=== PATIENT | male | born 1935 | race Caucasian/White ===

== ENCOUNTER 2017-03-12 09:46 | Emergency (ER) | payer MEDICARE, OTHER ==
[~2017-03-12] VITALS: Ht 180.3 cm; Wt 80.7 kg
[~2017-03-12 09:46] MED LIST: ALLOPURINOL100 MG PO; CARVEDILOL12.5 MG PO; CIALIS5 MG PO; COZAAR50 MG PO; FLOMAX0.4 MG PO; HYDROCHLOROTHIA25 MG PO; LUTEIN20 M1 PO; MULTI VITAMIN1 EACH PO
[2017-03-12] MEDS ORDERED: ISOSORBIDE DINI30 MG PO (10:00)
[2017-03-12] MEDS ORDERED: ZOCOR40 MG PO (10:00)
--- NOTE | 2017-03-13 20:49 | EKG ---
[facility] [address] [facility] [place] [address] Signed Sinus rhythm with premature atrial complexes Otherwise normal ECG No previous ECGs available Confirmed by ROC JAMIL MD ([id number]) on 03/13/2017 8:49:49 PM Electronically Signed By: ROC JAMIL MD 03/13/17 2049 PATIENT NAME: SKYLER LIMON Electrocardiogram DATE OF : 33 PHYSICIAN: ROC JAMIL MD REPORT #: [id number] REPORT IS CONFIDENTIAL AND NOT TO BE RELEASED WITHOUT AUTHORIZATION
== END 2017-03-12 11:25 | disposition home or self-care (01) ==
LOC: ED 09:46
DX: I10 Essential (primary) hypertension (principal); C14.0 Malignant neoplasm of pharynx, unspecified; Z98.890 Other specified postprocedural states; Z79.899 Other long term (current) drug therapy
CPT/HCPCS: 36415; 71010; 80053; 84484; 85025; 93005; 93010; 99284

== ENCOUNTER 2017-07-27 12:37 | Day surgery (SDC) | payer MEDICARE, OTHER ==
[~2017-07-27] VITALS: Ht 180.3 cm; Wt 84.4 kg
[~2017-07-27 12:37] MED LIST changes: +ADULT LOW DOSE81 MG PO; +ALLOPURINOL300 MG PO; +CLOPIDOGREL75 MG PO; +ISOSORBIDE DINI30 MG PO; +ZOCOR40 MG PO
--- NOTE | 2017-07-27 15:09 | NUR ---
07/27/17 Jonas9 Mitzy Avery 1507 PATIENT ARRIVES TO PACU ASLEEP, AWAKE OFF/ON, ANSWERS QUESTIONS APPROPRIATE THEN BACK TO SLEEP. RESP EVEN AND UNLABORED, NC AT 3 LITERS.
--- NOTE | 2017-08-05 14:11 | OR ---
[facility] [address] [place], [place] [address] Signed DATE OF OPERATION: 07/27/2017 SURGEON: Dexter Coughlin MD PREOPERATIVE DIAGNOSIS: Heme-positive stool without known rectal bleeding. POSTOPERATIVE DIAGNOSIS: Extensive diverticulosis. PROCEDURE: Total colonoscopy to cecum. ANESTHESIA: Intravenous sedation, fentanyl 100 mcg, Versed 7 mg. INDICATION: This 82-year-old white man is well known to me from the past. He is a patient of Dr. Li and also sees a nurse practitioner at the [facility]. 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 His last colonoscopy was in 2011. He was noted to have heme-positive stool on fecal occult blood testing at the [facility], though he has had no gross blood per rectum. He is admitted to undergo colonoscopy to better characterize that issue. He understands the risks of bleeding, infection, and perforation related to colonoscopy and wished to proceed. FINDINGS: The prep was adequate. There were extensive diverticular changes throughout the colon, most dominant in the sigmoid and left colon. There was no sign of polyps or colitis. DESCRIPTION OF PROCEDURE: The patient was brought to the endoscopy suite and placed in the lateral decubitus position, given intravenous sedation to the point of slurred speech and nystagmus. Digital rectal examination was normal. An Olympus video colonoscope was passed in the rectum and manipulated throughout the colon, ultimately intubating the cecum itself. The ileocecal valve and appendiceal orifice were normal. Scope was withdrawn from that point. Examination throughout confirmed numerous diverticula including right transverse, left and sigmoid colon. Most dominantly the diverticula in the left sigmoid colon. There was no evidence of polyp. Electronically Signed By: DEXTER COUGHLIN MD 08/05/17 1411 PATIENT NAME: SKYLER LIMON OPERATIVE REPORT DATE OF : 33 REPORT #: [id number] PHYSICIAN: DEXTER COUGHLIN MD PCP: NO PRIMARY CARE PHYSICIAN REPORT IS CONFIDENTIAL AND NOT TO BE RELEASED WITHOUT AUTHORIZATION [facility] [address] [place], [place] [address] Signed Retroflexed view in the rectum showed no abnormality. The scope was removed and the patient was taken to the recovery room in good condition. CONCLUDING DIAGNOSIS: Extensive diverticulosis. PLAN: Recommend high-fiber diet. He will return to the ongoing care of Dr. Li and those providers at [facility]. MD KOLTON Segal/BRIGHTL /[id number] cc: Angel Li DO [facility] Copies: ANGEL LI DO ~ Electronically Signed By: DEXTER COUGHLIN MD 08/05/17 1411 PATIENT NAME: SKYLER LIMON OPERATIVE REPORT DATE OF : 33 REPORT #: [id number] PHYSICIAN: DEXTER COUGHLIN MD PCP: NO PRIMARY CARE PHYSICIAN REPORT IS CONFIDENTIAL AND NOT TO BE RELEASED WITHOUT AUTHORIZATION
== END 2017-07-27 15:45 | disposition home or self-care (01) ==
LOC: DS 12:37 → OPS 12:37 → DS 14:00 → OPS 15:45
PROVIDERS: Surgery
PROC: 0DJD8ZZ Inspection of Lower Intestinal Tract, Via Natural or Artificial Opening Endoscopic (ICD-10-PCS; principal; 2017-07-27 14:00)
DX: K57.30 Diverticulosis of large intestine without perforation or abscess without bleeding (principal); D64.9 Anemia, unspecified; I10 Essential (primary) hypertension; I25.2 Old myocardial infarction; Z85.818 Personal history of malignant neoplasm of other sites of lip, oral cavity, and pharynx; Z98.890 Other specified postprocedural states
CPT/HCPCS: 99153; G0500; J2250; J3010; J7120

== ENCOUNTER 2017-08-27 18:57 | Emergency (ER) | payer MEDICARE, OTHER ==
[~2017-08-27] VITALS: Ht 180.3 cm; Wt 84.4 kg
[2017-08-27] MEDS ORDERED: SYNTHROID50 MCG PO (19:26)
--- OUTSIDE RECORDS SUMMARY | 2017-08-27 20:19 | XMS | Clinical Summary ---
Demographics + + + | Address | [address] | | | [place] [address] | + + + | Home Phone | | + + + | Preferred Language | Unknown | + + + | Marital Status | | + + + | Hindu Affiliation | NON | + + + | Race | White | + + + | Ethnic Group | Not or | + + + Author + + + | Author | [facility] | + + + | Organization | [facility] | + + + | Address | Unknown | + + + | Phone | Unavailable | + + + Support + + +---------+ + | Name | Relationship | Address | Phone | + + +---------+ + | Allie Johnson | ECON | Unknown | | + + +---------+ + Care Team Providers + +------+ + | Care Knobber Name | Role | Phone | + +------+ + | Cong Freeman MD | PP | | + +------+ + Source Comments HARDY is fully live on both [facility] Ambulatory and [facility] InPatient.[facility], [facility] Allergies No Known Allergies Current Medications + + + +---------+------+------+-------+ | Prescription | Sig. | Disp. | Refills | Star | End | Statu | | | | | | t | Date | s | | | | | | Date | | | + + + +---------+------+------+-------+ | isosorbide | Take 30 mg by mouth | | | | | Activ | | mononitrate CR 30 mg | once daily. | | | | | e | | oral tablet | | | | | | | | extended release 24 | | | | | | | | hr | | | | | | | + + + +---------+------+------+-------+ | nitroglycerin 0.4 | Place 0.4 mg under | | | | | Activ | | mg sublingual | tongue every five | | | | | e | | tablet, sublingual | minutes as needed | | | | | | | | for chest pain. | | | | | | | | Place under tongue | | | | | | | | and allow to | | | | | | | | dissolve. | | | | | | | | Administer every 5 | | | | | | | | minutes, max of 3 | | | | | | | | doses in 15 minutes. | | | | | | + + + +---------+------+------+-------+ | tamsulosin 0.4 mg | Take 0.4 mg by mouth | | | | | Activ | | oral | once daily. | | | | | e | | capsule,extended | | | | | | | | release 24hr | | | | | | | + + + +---------+------+------+-------+ | CYANOCOBALAMIN, | by injection route | | | | | Activ | | VITAMIN B-12, | every thirty days. | | | | | e | | (VITAMIN B-12 INJ) | | | | | | | + + + +---------+------+------+-------+ | allopurinol 300 mg | 0.5 tablets by | | | 04/0 | | Activ | | oral tablet | feeding tube route | | | 3/20 | | e | | | once daily. | | | 15 | | | + + + +---------+------+------+-------+ | aspirin chewable | 1 tablet by feeding | | | 04/0 | | Activ | | 81 mg oral | tube route once | | | 3/20 | | e | | tablet,chewable | daily. | | | 15 | | | + + + +---------+------+------+-------+ | carvedilol 12.5 mg | 1 tablet by feeding | | | 04/0 | | Activ | | oral tablet | tube route two times | | | 3/20 | | e | | | daily. Administer | | | 15 | | | | | with food. | | | | | | + + + +---------+------+------+-------+ | clopidogrel 75 mg | 1 tablet by feeding | | | 04/0 | | Activ | | oral tablet | tube route once | | | 4/20 | | e | | | daily. | | | 15 | | | + + + +---------+------+------+-------+ | | 1 tablet by feeding | | | 04/0 | | Activ | | hydrochlorothiazide | tube route once | | | 3/20 | | e | | 25 mg oral tablet | daily. | | | 15 | | | + + + +---------+------+------+-------+ | losartan 50 mg | 1 tablet by feeding | | | 04/0 | | Activ | | oral tablet | tube route once | | | 3/20 | | e | | | daily. | | | 15 | | | + + + +---------+------+------+-------+ | oxyCODONE, | Take 5 to 15 mL by | 300 mL | 0 | 04/0 | | Activ | | immediate release, 5 | feeding tube route | | | 3/20 | | e | | mg/5 mL oral | every three hours as | | | 15 | | | | solution | needed for moderate | | | | | | | | pain. | | | | | | + + + +---------+------+------+-------+ | polyethylene | 17 g by feeding tube | 119 g | | 04/0 | | Activ | | glycol 17 gram/dose | route once daily. | | | 3/20 | | e | | oral powder | | | | 15 | | | + + + +---------+------+------+-------+ | simvastatin 10 mg | 1 tablet by feeding | | | 04/0 | | Activ | | oral tablet | tube route once | | | 3/20 | | e | | | daily in the | | | 15 | | | | | evening. | | | | | | + + + +---------+------+------+-------+ | ondansetron 4 mg | Take 1 tablet by | 20 | 0 | 04/0 | | Activ | | oral tablet | feeding tube route | tablet | | 3/20 | | e | | | every twelve hours | | | 15 | | | | | as needed. | | | | | | + + + +---------+------+------+-------+ | acetaminophen 650 | 10.15-20.3 mL by | 400 mL | 0 | 04/0 | | Activ | | mg/20.3 mL oral | feeding tube route | | | 3/20 | | e | | suspension | every four hours as | | | 15 | | | | | needed. | | | | | | + + + +---------+------+------+-------+ | senna 8.8 mg/5 mL | 5 mL by feeding tube | 237 mL | 0 | 04/0 | | Activ | | oral syrup | route two times | | | 3/20 | | e | | | daily. | | | 15 | | | + + + +---------+------+------+-------+ | docusate sodium 50 | 5 mL by feeding tube | 120 mL | 0 | 04/0 | | Activ | | mg/5 mL oral liquid | route two times | | | 3/20 | | e | | | daily. | | | 15 | | | + + + +---------+------+------+-------+ | chlorhexidine 0.12 | Take 15 mL by mouth | 480 mL | 3 | 04/0 | | Activ | | % mucous membrane | every six hours. | | | 4/20 | | e | | mouthwash | Swish undiluted oral | | | 15 | | | | | rinse around in | | | | | | | | mouth for 30 | | | | | | | | seconds, then spit. | | | | | | | | Do not swallow. | | | | | | + + + +---------+------+------+-------+ Active Problems + + + | Problem | Noted Date | + + + | Pulmonary edema | 08/28/2014 | + + + + + | Last Assessment & Plan: -Suspected contributor to opacities | | on 08/28/2014 CXR-Furosemide 40 mg IV once today, goal I/O | | negative 500-1000 ml | + + + + + | CAD (coronary artery disease), [place] coronary artery | 08/27/2014 | + + + + + | Overview: S/P [place] 2013 Last Assessment & Plan: -Per ENT, | | hold aspirin and clopidogrel-Continue carvedilol 6.25 mg BID | |-Continue carvedilol 6.25 mg BID | + + + + + | Airway edema | 08/27/2014 | + + + + + | Last Assessment & Plan: After TORS procedures | | -Kept intubated and sedated overnight | | -decadron 8mg q8hrs per ENT ON | | -Cuff leak confirmed, passed SBT, extubated on 08/28/2014 | + + + + + | Post-operative pain | 08/27/2014 | + + + + + | Last Assessment & Plan: -Acetaminophen | | -PRN hydromorphone and oxycodone | + + + + + | Respiratory insufficiency | 08/27/2014 | + + + + + | Last Assessment & Plan: -Extubated on 08/28/2014 | | -Supplemental oxygen to maintain SpO2 > 92% | + + + + + | Difficult intubation | 08/27/2014 | + + + | HTN (hypertension) | 08/27/2014 | + + + + + | Last Assessment & Plan: -continue home carvedilol 6.25 mg BID | | -hold home HCTZ, losartan, and Isosorbide | + + + + + | GERD (gastroesophageal reflux disease) | 08/27/2014 | + + + + + | Overview: S/P [place] | + + + + + | CKD (chronic kidney disease) | 08/27/2014 | + + + + + | Last Assessment & Plan: 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 | + + + + + | Squamous cell carcinoma of oropharynx (HCC) | 08/20/2014 | + + + + + | Overview: S/P TORS partial pharnygecomy, TORS with partial | | glossectomy, and neck dissection | + + Family History + + +------+ + | Medical History | Relation | Name | Comments | + + +------+ + | Cancer | Daughter | | Breast | + + +------+ + | Cancer | Daughter | | Breast | + + +------+ + + +------+--------+ + | Relation | Name | Status | Comments | + +------+--------+ + | Daughter | | | | + +------+--------+ + | Daughter | | | | + +------+--------+ + Social History + +-------+ +--------+------+ | Tobacco Use | Types | Packs/Day | Years | Date | | | | | Used | | + +-------+ +--------+------+ | Never Smoker | | | | | + +-------+ +--------+------+ + + +---------+ + | Alcohol Use | Drinks/We | oz/Week | Comments | | | ek | | | + + +---------+ + | Yes | 2 | 1.0 | | | | Standard | | | | | drinks or | | | | | | | | | | equivalen | | | | | t | | | + + +---------+ + + + + | Sex Assigned at | Date Recorded | | | | + + + | Not on file | | + + + Last Filed Vital Signs + + + + | Vital Sign | Reading | Time Taken | + + + + | Blood Pressure | 162/56 | 08/31/2014 12:22 PM PDT | + + + + | Pulse | 63 | 08/31/2014 12:22 PM PDT | + + + + | Temperature | 36.7 C (98.1 F) | 08/31/2014 2:09 PM PDT | + + + + | Respiratory Rate | 24 | 08/31/2014 12:22 PM PDT | + + + + | Oxygen Saturation | 95% | 08/31/2014 12:22 PM PDT | + + + + | Inhaled Oxygen | - | - | | Concentration | | | + + + + | Weight | 95.7 kg (210 lb 15.7 | 08/28/2014 9:10 PM PDT | | | oz) | | + + + + | Height | 180.3 cm (5' 10.98") | 08/27/2014 2:25 PM PDT | + + + + | Body Mass Index | 29.44 | 08/28/2014 9:10 PM PDT | + + + + Plan of Treatment + + + + + | Health Maintenance | Due Date | Last Done | Comments | + + + + + | INFLUENZA VACCINE | | | | | (FLU SHOT) | 7 | | | + + + + + Results Not on filefrom Last 3 Months
--- OUTSIDE RECORDS SUMMARY | 2017-08-27 20:19 | XMS | Clinical Summary ---
Demographics + + + | Address | [address] | | | [place] [address] | + + + | Home Phone | | + + + | Preferred Language | Unknown | + + + | Marital Status | | + + + | Gnosticism Affiliation | NON | + + + [...] Team Providers + +------+ + | Care Forensic Sergeant Name | Role | Phone | + +------+ + | Cong Freeman MD | PP | | + +------+ + Source Comments HARDY is fully live on both [facility] Ambulatory and [facility] InPatient.[facility] & [facility] Allergies No Known Allergies Current Medications + [...] + + | CAD (coronary artery disease), [place] coronary artery | 08/27/2014 | + + + + + | Overview: S/P [place] 2013 Last Assessment & Plan: -Per ENT, [...] + | Last Assessment & Plan: Baseline Cottage Parent ~1.5 | + + + + + [...]
[2017-08-27] MEDS ORDERED: CEPHALEXIN500 MG PO (23:05)
== END 2017-08-27 23:36 | disposition home or self-care (01) ==
LOC: ED 18:57
DX: N39.0 Urinary tract infection, site not specified (principal); I10 Essential (primary) hypertension; E78.00 Pure hypercholesterolemia, unspecified; E03.9 Hypothyroidism, unspecified; Z79.899 Other long term (current) drug therapy; Z79.82 Long term (current) use of aspirin
CPT/HCPCS: 80053; 81001; 85025; 87077; 87088; 87186; 99283

== ENCOUNTER 2017-11-06 19:09 | Emergency (ER) | payer OTHER, MEDICARE ==
[~2017-11-06] VITALS: Ht 180.3 cm; Wt 84.4 kg
[~2017-11-06 19:09] MED LIST changes: +CEPHALEXIN500 MG PO; +SYNTHROID50 MCG PO
[2017-11-06] MEDS ORDERED: B-121000 MC2 PO (19:30)
[2017-11-06] MEDS ORDERED: CEPHALEXIN500 MG PO (21:57)
== END 2017-11-06 22:09 | disposition home or self-care (01) ==
LOC: ED 19:09
DX: N39.0 Urinary tract infection, site not specified (principal); I10 Essential (primary) hypertension; E78.00 Pure hypercholesterolemia, unspecified; E03.9 Hypothyroidism, unspecified; Z79.899 Other long term (current) drug therapy; Z79.82 Long term (current) use of aspirin
CPT/HCPCS: 74176; 80053; 81001; 85025; 87077; 87088; 87186; 96374; 99284; J0696

== ENCOUNTER 2018-06-10 10:21 | Emergency (ER) | payer MEDICARE, OTHER ==
[~2018-06-10] VITALS: Ht 180.3 cm; Wt 84.4 kg
[~2018-06-10 10:21] MED LIST changes: +B-121000 MC2 PO
--- NOTE | 2018-06-11 06:58 | EKG ---
[facility] [address] [place] [address] Signed Normal sinus rhythm Minimal voltage criteria for LVH, may be normal variant Borderline ECG When compared with ECG of 12-MAR-2017 10:11, premature atrial complexes are no longer present T wave inversion now evident in Inferior leads Confirmed by WILIAM JIMENEZ MD ([id number]) on 06/11/2018 6:58:40 AM Electronically Signed By: WILIAM JIMENEZ MD 06/11/18 0658 PATIENT NAME: SKYLER LIMON Electrocardiogram DATE OF : 33 PHYSICIAN: WILIAM JIMENEZ MD REPORT #: [id number] REPORT IS CONFIDENTIAL AND NOT TO BE RELEASED WITHOUT AUTHORIZATION
== END 2018-06-10 11:58 | disposition home or self-care (01) ==
LOC: ED 10:21
DX: R07.89 Other chest pain (principal); R53.1 Weakness; I10 Essential (primary) hypertension; E78.00 Pure hypercholesterolemia, unspecified; E03.9 Hypothyroidism, unspecified; C14.0 Malignant neoplasm of pharynx, unspecified; Z79.82 Long term (current) use of aspirin; Z79.899 Other long term (current) drug therapy
CPT/HCPCS: 71045; 80053; 84484; 85025; 87502; 93005; 93010; 99285-25

== ENCOUNTER 2019-06-05 06:34 | Emergency (ER) | payer MEDICARE, OTHER ==
[~2019-06-05] VITALS: Ht 180.3 cm; Wt 80.7 kg
--- OUTSIDE RECORDS SUMMARY | ~2019-06-05 | XMS | Encounter Summary ---
Demographics + + + | Address | [address] | | | [place] [address] | + + + | Home Phone | | + + + | Preferred Language | Unknown | + + + | Marital Status | | + + + | Synagogue Affiliation | NON | + + + | Race | White | + + + | Ethnic Group | Not or | + + + Author + + + | Author | [facility] | + + + | Organization | [facility] | + + + | Address | Unknown | + + + | Phone | Unavailable | + + + Support + + +---------+ + | Name | Relationship | Address | Phone | + + +---------+ + | Kofia Alex | ECON | Unknown | | + + +---------+ + Care Team Providers + +------+ + | Care Charge Aide Name | Role | Phone | + +------+ + | Cong Freeman MD | PCP | | + +------+ + Encounter Details +--------+ + + + + | Date | Type | Department | Care Team | Description | +--------+ + + + + | 08/31/ | Pharmacy | Outpatient [facility] | | | | 2014 | Visit [facility] | | | | | [address] | | | | | | [address] [place], [place] | | | | | | [address] | | | | | | [phone] | | | +--------+ + + + + Social History + +-------+ +--------+------+ | Tobacco Use | Types | Packs/Day | Years | Date | | | | | Used | | + +-------+ +--------+------+ | Never Smoker | | | | | + +-------+ +--------+------+ + + +---------+ + | Alcohol Use | Drinks/Week | oz/Week | Comments | + + +---------+ + | Yes | 2 Standard drinks | 1.7 | | | | or equivalent | | | + + +---------+ + + + + | Sex Assigned at | Date Recorded | | | | + + + | Not on file | | + + + + + + + | Job Start Date | Occupation | Industry | + + + + | Not on file | Not on file | Not on file | + + + + + + + + | Travel History | Travel Start | Travel End | + + + + + + | No recent travel history available. | + + documented as of this encounter Plan of Treatment Not on filedocumented as of this encounter Visit Diagnoses Not on filedocumented in this encounter"
--- OUTSIDE RECORDS SUMMARY | ~2019-06-05 | XMS | Encounter Summary ---
Demographics + + + | Address | [address] | | | [place] [address] | + + + | Home Phone | | + + + | Preferred Language | Unknown | + + + | Marital Status | | + + + | Latter Day Affiliation | Unknown | + + + | Race | Unknown | + + + | Ethnic Group | Unknown | + + + Author + + + | Author | [facility] | | | and [place] | + + + | Organization | [facility] | | | and [place] | + + + | Address | Unknown | + + + | Phone | Unavailable | + + + Support + + + + + | Name | Relationship | Address | Phone | + + + + + | Allie Johnson | ECON | [address] | | | | | [place] | | | | | [address] | | + + + + + Care Team Providers + +------+ + | Care Director Of District Office Name | Role | Phone | + +------+ + | Ruy Chaparro MD | PCP | | + +------+ + Reason for Visit Service/Procedure (Routine) +--------+--------+ + + + + | Status | Reason | Specialty | Diagnoses / | Referred By | Referred To | | | | | Procedures | Contact | Contact | +--------+--------+ + + + + | Closed | | Infusion | Diagnoses | Lord, | [facility] | | | | Therapy | Malignant | Art Holloway DO | Infusion [address] | | | | | neoplasm of | [address] [place] | | | | | oropharynx, | [address] | [place], | | | | | unspecified | [place], | [place] [address] | | | | | site | [place] [address] | Phone: | | | | | Procedures | Phone: | [phone] | | | | | DE IV | [phone] | Fax: | | | | | INFUSION, | Fax: | [phone] | | | | | HYDRATION, | [phone] | | | | | | 31-60 MIN | | | | | | | DE IV | | | | | | | INFUSION, | | | | | | | HYDRATION, | | | | | | | 31-60 MIN | | | +--------+--------+ + + + + Encounter Details +--------+ + + + + | Date | Type | Department | Care Team | Description | +--------+ + + + + | 11/28/ | Hospital | [facility] | Art Red DO | Dysphagia; Carcinoma | | 2015 | Encounter | MED CTR CHEMO | [address] | of oropharynx (HCC) | | | | INFUSION [address] | [place], [place] | | | | | [place], | [address] | | | | | [place] [address] | | | | | | [phone] | | | +--------+ + + + + Social History + +-------+ +--------+------+ | Tobacco Use | Types | Packs/Day | Years | Date | | | | | Used | | + +-------+ +--------+------+ | Never Assessed | | | | | + +-------+ +--------+------+ + + +---------+ + | Alcohol Use | Drinks/Week | oz/Week | Comments | + + +---------+ + | Yes | | | Occasionally | + + +---------+ + + + [...] + + documented as of this encounter Last Filed Vital Signs + + + + + | Vital Sign | Reading | Time Taken | Comments | + + + + + | Blood Pressure | 116/58 | 11/28/2014 10:34 AM | | | | | PDT | | + + + + + | Pulse | 59 | 11/28/2014 10:34 AM | | | | | PDT | | + + + + + | Temperature | 36.3 C (97.3 F) | 11/28/2014 10:34 AM | | | | | PDT | | + + + + + | Respiratory Rate | 18 | 11/28/2014 10:34 AM | | | | | PDT | | + + + + + | Oxygen Saturation | 97% | 11/28/2014 10:34 AM | | | | | PDT | | + + + + + | Inhaled Oxygen | - | - | | | Concentration | | | | + + + + + | Weight | - | - | | + + + + + | Height | - | - | | + + + + + | Body Mass Index | - | - | | + + + + + documented in this encounter Medications at Time of Discharge + + + +---------+ + + | Medication | Sig | Dispensed | Refills | Start | End Date | | | | | | Date | | + + + +---------+ + + | aspirin 81 mg | Take 81 mg by mouth | | 0 | | | | chewable tablet | Daily. | | | | | + + + +---------+ + + | isosorbide | Take 60 mg by mouth | | 0 | | | | mononitrate 60 mg ER | Daily. | | | | | | tablet | | | | | | + + + +---------+ + + | losartan (COZAAR) | Take 50 mg by mouth | | 0 | | | | 50 mg tablet | Daily. | | | | | + + + +---------+ + + | simvastatin | Take 40 mg by mouth | | 0 | | | | (ZOCOR) 40 mg tablet | nightly. | | | | | + + + +---------+ + + | acetaminophen | Take 500 mg by mouth | | 0 | | | | (TYLENOL) 500 mg | every 6 hours as | | | | 7 | | tablet | needed for Pain. | | | | | | | Take 1,000mg Po prn | | | | | + + + +---------+ + + | allopurinol | Take 300 mg by mouth | | 0 | | | | (ZYLOPRIM) 300 mg | Daily. | | | | 8 | | tablet | | | | | | + + + +---------+ + + | carvedilol (COREG) | Take 12.5 mg by | | 0 | | | | 12.5 mg tablet | mouth 2 times daily | | | | 9 | | | (with breakfast & | | | | | | | dinner). | | | | | + + + +---------+ + + | clopidogrel | Take 75 mg by mouth | | 0 | | | | (PLAVIX) 75 mg | Daily. | | | | 6 | | tablet | | | | | | + + + +---------+ + + | cyanocobalamin | Inject 1,000 mcg | | 0 | | | | (VITAMIN B-12) 1,000 | into the muscle | | | | 6 | | mcg/mL injection | once. Every 30 days | | | | | + + + +---------+ + + | fentaNYL | Place 1 patch onto | 5 patch | 0 | 11/27/19 | | | (DURAGESIC) 50 | the skin every 72 | | | 15 | 5 | | mcg/hr | hours for 30 days. | | | | | + + + +---------+ + + | fluconazole | Take 2 tabs the | 11 | 0 | 11/13/19 | | | (DIFLUCAN) 100 mg | first day then 1 tab | tablet | | 15 | 6 | | tabletIndications: | daily for a total | | | | | | Thrush | of 10 days | | | | | + + + +---------+ + + | | Take 25 mg by mouth | | 0 | | | | hydrochlorothiazide | Daily. | | | | 9 | | 25 mg tablet | | | | | | + + + +---------+ + + | magic mouthwash | Take 5 mLs by mouth | 600 mL | 3 | 10/27/19 | | | | every 4 hours as | | | 15 | 6 | | | needed for Pain (Can | | | | | | | swish and swallow, | | | | | | | or swish and spit). | | | | | | | (RECIPE = 1:1:1 | | | | | | | mixture of Maalox, | | | | | | | diphenhydrAMINE, | | | | | | | viscous lidocaine) | | | | | + + + +---------+ + + | morphine 10 mg/5 | Take 5-15 mL every | 500 mL | 0 | 11/23/19 | | | mL | 4-6 hr as needed for | | | 15 | 6 | | solutionIndications: | pain. | | | | | | Mucositis due to | | | | | | | radiation therapy | | | | | | + + + +---------+ + + | nitroglycerin | Place 0.4 mg under | | 0 | | | | (NITROSTAT) 0.4 mg | the tongue every 5 | | | | 7 | | SL tablet | minutes as needed | | | | | | | for Chest pain. | | | | | + + + +---------+ + + | ondansetron | Take 1 tablet by | 24 | 0 | 11/23/19 | | | (ZOFRAN ODT) 4 mg | mouth every 8 hours | tablet | | 15 | 5 | | disintegrating | as needed for Nausea | | | | | | tablet | for up to 7 days. | | | | | + + + +---------+ + + | polyethylene | Mix 17grams into 4-8 | 255 g | 0 | 11/27/19 | | | glycol (MIRALAX) | oz of juice or | | | 15 | 6 | | powder | water and take by | | | | | | | mouth once daily as | | | | | | | needed for | | | | | | | constipation | | | | | + + + +---------+ + + documented as of this encounter Progress Courtney Tucker RN - 11/28/2014 12:10 PM PDTPatient discharged in satisfactory conditi on. Discharged ambulatory. With family. To home. Verified that patient has antinausea medications at home. Future appointments and After Visit Summary (AVS) provided. Kathy Verdin RN - 11/28/2014 10:35 AM PDTHe re for rn check, hydration. Doing well today. Denies dizziness if he gets up slowly. Denies pain while resting, reports if he attempts to swallow it hurts. Using pain med routinely. No new concerns domargarita brower in this encounter Plan of Treatment +--------+ + + + + | Date | Type | Specialty | Care Team | Description | +--------+ + + + + | 12/10/ | Appointment | Radiation Oncology | Art Red DO | | 2019 | | | [address] | | | | | | [place] | | | | | | [address] | | | | | | | | +--------+ + + + + | 03/13/ | Office | Cardiology | Sophie Delacruz, | | | 2019 | Visit | Rosemarie DIAZ | | | | | | [place] | | | | | | [phone] | | | | | | | | +--------+ + + + + documented as of this encounter Visit Diagnoses + + | Diagnosis | + + | Dysphagia Dysphagia, unspecified | + + | Carcinoma of oropharynx (HCC) Malignant neoplasm of oropharynx, unspecified site | + + documented in this encounter Administered Medications + +--------+ +-------+------+------+ | Medication Order | MAR | Action | Dose | Rate | Site | | | Action | Date | | | | + +--------+ +-------+------+------+ | heparin 100 units/mL flush | Given | 11/29/19 | 500 | | | | injection 500 Units 500 Units (5 | | 15 12:05 | Units | | | | mL), Intracatheter, PRN, Line | | PM PDT | | | | | Care, Starting Wed11/28/14 at | | | | | | | 1022, , | | | | | | + +--------+ +-------+------+------+ +---+---+ | | | +---+---+ + +---------+ +---+-------+---+ | sodium chloride 0.9% (NS) | New Bag | 11/29/19 | | 650 | | | infusion at 650 mL/hr, | | 15 10:31 | | mL/hr | | | Intravenous, ONCE, Wed11/28/14 at | | AM PDT | | | | | 1045, For 1 dose, Give 1 liter NS | | | | | | | daily- For Dr. Red- Patient | | | | | | | has radiation daily at 0945. He | | | | | | | only has 8 treatments left- last | | | | | | | day of IV hydration will be on | | | | | | | November 29., | | | | | | + +---------+ +---+-------+---+ +---+---+ | | | +---+---+ documented in this encounter"
--- OUTSIDE RECORDS SUMMARY | ~2019-06-05 | XMS | Encounter Summary ---
Demographics + + + | Address | [address] | | | [place] [address] | + + + | Home Phone | | + + + | Preferred Language | Unknown | + + + | Marital Status | | + + + | Nondenominational Affiliation | Unknown | + + + | Race | Unknown | + + + | Ethnic Group | Unknown | + + + Author + + + | Author | [facility] | | | and [place] | + + + | Organization | [facility] | | | and [...] [place] | | | | | [address] | | + + + + + Care Team Providers + +------+ + | Care Spreader Operator Name | Role | Phone | + +------+ + | Ruy Chaparro MD | PCP | | + +------+ + Reason for Visit +--------+ + | Reason | Comments | +--------+ + | Other | | +--------+ + Encounter Details +--------+ + + + + | Date | Type | Department | Care Team | Description | +--------+ + + + + | 11/09/ | Telephone | [facility] | Art Red DO | Other | | 2014 | | MED CTR RADIATION | [address] | | | | | ONCOLOGY [address] | [place], [place] | | | | | [place], | [address] | | | | | [place] [address] | | | | | | [phone] | | | +--------+ + + + [...] as of this encounter Plan of Treatment +--------+ + + + + | Date | Type | Specialty | Care Team | Description | +--------+ + + + + | 12/10/ | Appointment | Radiation Oncology | Art Red DO | | 2019 | | | [address] | | | | | | [place] | | | | | | [address] | | | | | | | | +--------+ + + + + | 03/13/ | Office | Cardiology | Sophie Delacruz, | | | 2019 | Visit | | MD Chivo DIAZ | | | | | | [place] | | | | | | [address] | | | | | | | | +--------+ + + + + documented as of this encounter Visit Diagnoses Not on filedocumented in this encounter"
--- OUTSIDE RECORDS SUMMARY | ~2019-06-05 | XMS | Encounter Summary ---
Demographics + + + | Address | [address] | | | [place] [address] | + + + | Home Phone | | + + + | Preferred Language | Unknown | + + + | Marital Status | | + + + | Shinto Affiliation | Unknown | + + + | Race | Unknown | + + + | Ethnic Group | Unknown | + + + Author + + + | Author | [facility] | | | and [place] | + + + | Organization | [facility] | | | and [place] | + [...] [place] | | | | | [address] | | + + + + + Care Team Providers + +------+ + | Care Brooch Maker Novelty Name | Role | Phone | + +------+ + | Ruy Chaparro MD | PCP | | + +------+ + Reason for Visit +--------+ + | Reason | Comments | +--------+ + | Other | | +--------+ + Encounter Details +--------+ + + + + | Date | Type | Department | Care Team | Description | +--------+ + + + + | 10/12/ | Telephone | [facility] | [facility] | Other | | 2015 | | MED CTR MEDICAL | MD Jason [address] | | | | | ONCOLOGY CLINIC [address] | [address] [place] | | | | | [address] [place] | [place] [address] | | | | | [place] [address] | [phone] | | | | | [phone] | | | +--------+ + + + [...] Oncology | Art Red DO | | | 2019 | | | [address] | | | | | | [place] | | | | | | [address] | | | | | | | | +--------+ + + + + | 03/13/ | Office | Cardiology | Sophie Delacruz, | | | 2019 | Visit | | MD [address]ivo [address] | | | | | | [place] | | | | | | [address] | | | | | | | | +--------+ + + + + documented as of this encounter Visit Diagnoses Not on filedocumented in this encounter"
--- OUTSIDE RECORDS SUMMARY | ~2019-06-05 | XMS | Encounter Summary ---
Demographics + + + | Address | [address] | | | [place] [address] | + + + | Home Phone | | + + + | Preferred Language | Unknown | + + + | Marital Status | | + + + | Religion Affiliation | Unknown | + + + | Race | Unknown | + + + | Ethnic Group | Unknown | + + + Author + + + | Author | [facility] | | | and [place] | + + + | Organization | [facility] | | [...] [place] | | | | | [address] | | + + + + + Care Team Providers + +------+ + | Care Master Control Supervisor Name | Role | Phone | + +------+ + | Ruy Chaparro MD | PCP | | + +------+ + Encounter Details +--------+ + + + + | Date | Type | Department | Care Team | Description | +--------+ + + + + | 11/26/ | Orders Only | [facility] | Art Red DO | | | 2014 | | MED CTR RADIATION | [address] | | | | | ONCOLOGY [address] | [place], [place] | | | | | [place], | [address] | | | | | [place] [address] | | | | | | [phone] | | | +--------+ + + + [...] 2019 | | | [address] | | | | | | [place] | | | | | | [phone] | | | | | | | | +--------+ + + + + | 03/13/ | Office | Cardiology | Sophie Delacruz, | | | 2019 | Visit | | MD [address]ivo DIAZ | | | | | | [place] | | | | | | [phone] | | | | | | | | +--------+ + + + + documented as of this encounter Visit Diagnoses Not on filedocumented in this encounter"
--- OUTSIDE RECORDS SUMMARY | ~2019-06-05 | XMS | Encounter Summary ---
Demographics + + + | Address | [address] | | | [place] [address] | + + + | Home Phone | | + + + | Preferred Language | Unknown | + + + | Marital Status | | + + + | Restorationism Affiliation | NON | + + + | Race | White | + + + | Ethnic Group | Not or | + + + Author + + + | Author | [facility] | + + + | Organization | [facility] | + + + | Address | Unknown | + + + | Phone | Unavailable | + + + Support + + +---------+ + | Name | Relationship | Address | Phone | + + +---------+ + | Kofia Alex | ECON | Unknown | | + + +---------+ + Care Team Providers + +------+ + | Care Trim Master Operator Name | Role | Phone | + +------+ + | Cong Freeman MD | PCP | | + +------+ + Encounter Details +--------+ + + + + | Date | Type | Department | Care Team | Description | +--------+ + + + + | 08/25/ | Documentati | Otolaryngology | Danny Abdullahi | | | 2017 | on | Head and Neck | MD Jessy [address] [facility] [address] | | | | | Surgery Services at | [facility] | | | | | [address] | [place], [place] | | | | | [address] | [address] | | | | | Mailcode: PV01 | [phone] | | | | | [facility] | | | | | | [place], [place] | | | | | | [address] | | | | | | [phone] | | | +--------+ + + + [...]
--- OUTSIDE RECORDS SUMMARY | ~2019-06-05 | XMS | Encounter Summary ---
Demographics + + + | Address | [address] | | | [place] [address] | + + + | Home Phone | | + + + | Preferred Language | Unknown | + + + | Marital Status | | + + + | Hinduism Affiliation | Unknown | + + + | Race | Unknown | + + + | Ethnic Group | Unknown | + + + Author + + + | Author | [facility] | | | and [place] | + + + | Organization | [facility] | | | and [...] [place] | | | | | [address] | | + + + + + Care Team Providers + +------+ + | Care Drum Sander Name | Role | Phone | + [...] neoplasm of | [address] [place] | | | | | oropharynx, | [address] | [place], | | | | | unspecified | [place], | [place] [address] | | | | | site | [place] [address] | Phone: | | | | | Procedures | Phone: | [phone] | | | | | NM IV | [phone] | Fax: | | | | | INFUSION, | Fax: | [phone] | | | | | HYDRATION, | [phone] | | | | | | 31-60 MIN | | | | | | | NM IV | | | | | | | INFUSION, | | | | | | | HYDRATION, | | | | | | | 31-60 MIN | | | +--------+--------+ + + + + Encounter Details +--------+ + + + + | Date | Type | Department | Care Team | Description | +--------+ + + + + | 11/22/ | Hospital | [facility] | Art Red DO | Dysphagia; Carcinoma | | 2015 | Encounter | MED CTR CHEMO | [address] | of oropharynx (HCC) | | | | INFUSION [address] | [place], [place] | | | | | [place], | [address] | | | | | [place] [address] | | | | | | [phone] | | | +--------+ + + + [...] + + + | Blood Pressure | 111/54 | 11/22/2014 10:35 AM | | | | | PDT | | + + + + + | Pulse | 57 | 11/22/2014 10:35 AM | | | | | PDT | | + + + + + | Temperature | 35.9 C (96.6 F) | 11/22/2014 10:35 AM | | | | | PDT | | + + + + + | Respiratory Rate | - | - | | + + + + + | Oxygen Saturation | - | - | | + [...] fentaNYL | Place 1 patch onto | 10 | 0 | 11/07/19 | | | (DURAGESIC) 25 | the skin every 72 | patch | | 15 | 5 | | [...] + documented as of this encounter Progress Notes Kathy Cason RN - 11/22/2014 12:15 PM PDTDc/d home amb in good condition with compan ion Elba Salinas RN - 11/22/2014 10:33 AM PDTEnergy level: no energy, sleeping alot Fever or chills: denies Appetite: No appetite. Eating soft foods boost Nausea and/or vomiting: denies Bowels: not eating doesn't feel like there's anything there, does not feel constipated Numbness and tingling: denies Bleeding or bruising: denies Karnofsky: 69 Nurses notes: No new concerns , Just saw Dr Red. Here for fluids. documented in this encounter Plan of Treatment +--------+ [...] [place] | | | | | | [address] | | | | | | | | +--------+ + + + + | 03/13/ | Office | Cardiology | Sophie Delacruz, | | | 2019 | Visit | | MD Chivo DIAZ | | | | | | [place] | | | | | | [phone] | | | | | | | [...] heparin 100 units/mL flush | Given | 11/22/ | 500 | | | | injection 500 Units 500 Units (5 | | 15 12:15 | Units | | | | mL), Intracatheter, PRN, Line | | PM PDT | | | | | Care, Starting Wed11/22/14 at | | | | | | | 0941, , | | | | | | + +--------+ +-------+------+------+ +---+---+ | | | +---+---+ + +---------+ +--------+-------+---+ | sodium chloride 0.9% (NS) | New Bag | 11/23/19 | 1,000 | 650 | | | infusion at 650 mL/hr, | | 15 10:39 | mLs | mL/hr | | | Intravenous, ONCE, Wed11/22/14 at | | AM PDT | | | | | 1000, For 1 dose, Give 1 liter | | | | | | | NS daily- For Dr. Red- Patient | | | | | | | has radiation daily at 0945. He | | | | | | | only has 8 treatments left- last | | | | | | | day of IV hydration will be on | | | | | | | November 29., | | | | | | + +---------+ +--------+-------+---+ +---+---+ | | | +---+---+ documented in this encounter"
--- OUTSIDE RECORDS SUMMARY | ~2019-06-05 | XMS | Encounter Summary ---
Demographics + + + | Address | [address] | | | [place] [address] | + + + | Home Phone | | + + + | Preferred Language | Unknown | + + + | Marital Status | | + + + | Shinto Affiliation | Unknown | + + + | Race | Unknown | + + + | Ethnic Group | Unknown | + + + Author + + + | Author | [facility] | | | and [place] | + + + | Organization | [facility] | | | [...] [place] | | | | | [address] | | + + + + + Care Team Providers + +------+ + | Care Food Production Associate Name | Role | Phone | + [...] + | 10/12/ | Telephone | [facility] | María Begum MD | Other | | 2015 | | MED CTR MEDICAL | [address] | | | | | ONCOLOGY CLINIC [address] | [place], [place] | | | | | [place] | [address] | | | | | [place] [address] | [phone] | | | | | [phone] | | | +--------+ + + + [...] [place] | | | | | | [address] | | | | | | | | +--------+ + + + + | 03/13/ | Office | Cardiology | Sophie Delacruz, | | | 2020 | Visit | | MD Chivo DIAZ | | | | | | [place] | | | | | | [address] | | | | | | | | +--------+ + + + + documented as of this encounter Visit Diagnoses Not on filedocumented in this encounter"
--- OUTSIDE RECORDS SUMMARY | ~2019-06-05 | XMS | Encounter Summary ---
Demographics + + + | Address | [address] | | | [place] [address] | + + + | Home Phone | | + + + | Preferred Language | Unknown | + + + | Marital Status | | + + + | Anabaptism Affiliation | Unknown | + + + | Race | Unknown | + + + | Ethnic Group | Unknown | + + + Author + + + | Author | [facility] | | | and [place] | + + + | Organization | [facility] | | | and [...] [place] | | | | | [address] | | + + + + + Care Team Providers + +------+ + | Care Letter Carrier Name | Role | Phone | + +------+ + | Ruy Chaparro MD | PCP | | + +------+ + Encounter Details +--------+ + + + + | Date | Type | Department | Care Team | Description | +--------+ + + + + | 05/29/ | Documentati | [facility] | [place], | | | 2016 | on | MED CTR SPEECH | Michelle Weeks, Speech | | | | | THERAPY [address] | Pathologist [address] | | | | | [place], | [address] [place] | | | | | [place] [address] | [place] [address] | | | | | [phone] | [phone] | | | | | | | [...] [place] | | | | | | [address] | | | | | | | | +--------+ + + + + | 03/13/ | Office | Cardiology | Sophie Delacruz, | | | 2019 | Visit | | MD Chivo DIAZ | | | | | | [place] | | | | | | [address] | | | | | | | | +--------+ + + + + documented as of this encounter Visit Diagnoses Not on filedocumented in this encounter"
--- OUTSIDE RECORDS SUMMARY | ~2019-06-05 | XMS | Encounter Summary ---
Demographics + + + | Address | [address] | | | [place] [address] | + + + | Home Phone | | + + + | Preferred Language | Unknown | + + + | Marital Status | | + + + | Baptism Affiliation | NON | + + + | Race | White | + + + | Ethnic Group | Not or | + + + Author + + + | Author | [facility] | + + + | Organization | [facility] | + + + | Address | Unknown | + + + | Phone | Unavailable | + + + Support + + +---------+ + | Name | Relationship | Address | Phone | + + +---------+ + | Kofia Alex | ECON | Unknown | | + + +---------+ + Care Team Providers + +------+ + | Care Remittance Clerk Name | Role | Phone | + +------+ + | Cong Freeman MD | PCP | | + +------+ + Reason for Visit + + + | Reason | Comments | + + + | Medicare | | | Certification | | + + + Consultation (Routine) +--------+--------+ + + + + | Status | Reason | Specialty | Diagnoses / | Referred By | Referred To | | | | | Procedures | Contact | Contact | +--------+--------+ + + + + | Closed | | Speech | Diagnoses | Bradly | Ent Speech | | | | Therapy | tongue | Danny Jiménez, | [address] | | | | | cancer | [address] | [address]ons[address] | | | | | | Bartolo De | Mailcode: | | | | | | Sarah [facility] | [address] | | | | | | [place], [place] | for Health | | | | | | [address] | and Healing, | | | | | | Phone: | [address], | | | | | | [phone] | [address] Floor | | | | | | Fax: | [place], [place] | | | | | | [phone] | [address] | | | | | | | Phone: | | | | | | | [phone] | | | | | | | Fax: | | | | | | | [phone] | +--------+--------+ + + + + Encounter Details +--------+ + + + + | Date | Type | Department | Care Team | Description | +--------+ + + + + | 08/20/ | Diagnostic | Otolaryngology | Steph Trejo, | Medicare | | 2015 | Visit | Speech Therapy | [facility] | Certification | | | | Services at [facility] | | | | | | [address] | | | | | | Loop Mailcode: [address] | | | | | | Physician's | | | | | | Pavilion [place], | | | | | | [place] [address] | | | | | | [phone] | | | +--------+ + + + [...] documented as of this encounter Progress Notes Steph Trejo CCC-LENS FINISHER - 08/20/2014 3:44 PM PDTFormatting of this note might be differen t from the original. Clinic: [facility] Referring Physician: Danny Abdullahi MD PCP: Cong Freeman MD Medical Diagnosis: Tongue cancer, 141.9; Dysphagia, oropharyngeal, 787.22 Date of Onset for This Diagnosis: 08/19/2014 Treatment Diagnosis: Dysphagia, oropharyngeal, 787.22 Start of Care Date: 08/20/2014 Duration of session: 45 minutes SUBJECTIVE: Navi Johnson is a 79 y.o. male patient of Dr. Abdullahi seen for preoperative evaluation a nd counseling. The patient has a history of T2N1M0 Left base of tongue cancer and is schedul ed to undergo Transoral Robotic Surgery (TORS) left base of tongue and left neck dissection on 08/27/2014. CURRENT COMPLAINTS: The patient reports only mild sensation of effortful swallowing with saliva (dry swallows). He also reports sensation of residual secretions building in the throat which he intermitte ntly needs to clear. He denies any difficulty eating and drinking. He denies any food avoida nce, coughing or choking while eating, unintentional weight loss, or recent pneumonia. He re ports intermittent difficulty with dentition, specifically a space in the left upper molars, which he is careful re: foods sticking. Past Medical History Diagnosis Date CAD (coronary artery disease) CKD (chronic kidney disease) stage 3, GFR 30-59 ml/min DMII (diabetes mellitus, type 2) Difficult intubation per [facility], easy to ventilate, grade 1 view using glidescope Past Surgical History Procedure Laterality Date Panendoscopy Hiatal hernia repair DIETARY STATUS: Current diet: The patient is currently taking regular food and any liquids by mouth. The pa tiehoang does not have a feeding tube. With regard to dietary intake over the last 24 hours, th e patient reports taking sausage, eggs, fruit, coffee, pulled pork sandwich and sub sandwich . He reports drinking 1/2 to 1 liter of water per day, and 3 cups of coffee per day. He sherlyn es alcohol intake or tobacco use. PSS-Normalcy of Diet score: 100, full diet (no restrictions). PSS-Eating in Public score: 100, no restriction of place, food, or die repair. SOCIAL HISTORY: The patient currently lives in [place], [place], [place] with his Allie. 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 He reports that he has recently been wor indu to remodel their home and described himself as a "frustrated aranda." COMMUNICATION/SPEECH STATUS: The patient communicates verbally. Speech quality was noted to be normal, not dysarthric an d always understandable (PSS-Speech 100). Voice quality was clear and strong. In terms of re spiration, the patient is breathing easily at rest. Patient with mild throat clear at baseli ne intermittently across session. ORAL-MOTOR EXAMINATION: The patient has an upper denture and nisqually lower teeth in good repair. Velar elevation wa s normal. Oral tongue strength was normal. Range of motion of the tongue was complete. Lip s trength was normal. Range of motion of the lips was complete. Jaw strength was normal. Range of motion of the jaw was complete. Laryngeal elevation was complete to palpation. Cough str ength was good. WEIGHT: The patient's weight today is 215 lbs. He denies any unintentional weight loss. Wt Readings from Last 3 Encounters: 08/20/14 97.523 kg (215 lb) 08/20/14 97.977 kg (216 lb) PAIN: Pt rates current pain as 0 out of 10. He reports mild radiating left ear pain which is well controlled with OTC Tylenol. He denies any pain with lingual movements including talking or swallowing. PSS SCALES: PSS-Normalcy of Diet score: 100, full diet (no restrictions). PSS-Eating in Public score: 100, no restriction of place, food, or die repair. PSS -Speech: Always understandable (PSS-Speech 100). [facility] HNQOL Scores*: 100 87.50 100 81.25 *Scores are out of a maximum of 100, with higher scores indicating better QOL EATING ASSESSMENT TOOL (EAT-10) SCORE: 0 10 out of 10 items were completed. The EAT-10 is a subjective measure of swallowing related problems. Scores are rated from 0- 40 with higher scores indicating greater difficulties CLINICAL SWALLOW TRIALS: The patient was trialed with thin liquid water via cup and mechanical soft fruit via tsp. O ral control and manipulation were good. Transit was timely. Laryngeal elevation was timely a nd complete to palpation. Patient with one, mild throat clear during mastication of fruit co cktail (similar to baseline). Otherwise, no clinical s/sx of dysphagia, penetration, or aspi ration were observed. PREOPERATIVE COUNSELING: During today's visit we discussed the impact of surgery on speech, swallowing and respirati on. We discussed the impact of a temporary nasogastric feeding-tube for nutrition/hydration/ meds and the typical timeline for advancement of diet, FT removal including the possibility of discharge with or without the FT. We discussed post-operative pain and secretion manageme nt. We discussed both short and buttermaker helper dysphagia related issues and the role of the LENS FINISHER i n both IP and OP rehabilitation. All questions were answered to the best of my ability. The patient and his denied any concerns. ASSESSMENT: The patient demonstrates a good understanding of the implications of surgery for speech and swallowing. Patient is tolerating a regular diet without any clinical s/sx of aspiration. [id number] [place] EVAL,ORAL & PHARYNGEAL SWALLOW FUNCTION G8996 PQRI SWALLOW CURRENT STATUS Impairment 1-19 % G8997 PQRI SWALLOW GOAL STATUS Impairment % = 0 PLAN: We will follow-up with the patient after surgery as per our usual protocol. Steph Trejo M.S., [facility] Speech-Language Pathologist [facility] Otolaryngology, Head & Neck Surgery [facility] [place] documented in this e ncounter Plan of Treatment + + +--------+ + + | Name | Type | Priori | Associated Diagnoses | Order Schedule | | | | ty | | | + + +--------+ + + | PQRI SWALLOW CURRENT | Procedures | Routin | Tongue cancer | Ordered: 01/07/2015 | | STATUS | | e | ([facility]) Dysphagia, | | | | | | oropharyngeal | | + + +--------+ + + | PQRI SWALLOW GOAL | Procedures | Routin | Tongue cancer | Ordered: 01/07/2015 | | STATUS | | e | ([facility]) Dysphagia, | | | | | | oropharyngeal | | + + +--------+ + + documented as of this encounter Procedures + +--------+ + + + | Procedure Name | Priori | Date/Time | Associated Diagnosis | Comments | | | ty | | | | + +--------+ + + + | [place] EVAL,ORAL & | Routin | 08/20/2014 | Tongue cancer | | | PHARYNGEAL SWALLOW | e | 4:02 PM | (HCC) Dysphagia, | | | FUNCTION | | PDT | oropharyngeal | | + +--------+ + + + documented in this encounter Visit Diagnoses + + | Diagnosis | + + | Tongue cancer (HCC) - Primary Malignant neoplasm of tongue, unspecified site | + + | Dysphagia, oropharyngeal Dysphagia, oropharyngeal phase | + + documented in this encounter
--- OUTSIDE RECORDS SUMMARY | ~2019-06-05 | XMS | Encounter Summary ---
Demographics + + + | Address | [address] | | | [place] [address] | + + + | Home Phone | | + + + | Preferred Language | Unknown | + + + | Marital Status | | + + + | Yazdanism Affiliation | Unknown | + + + | Race | Unknown | + + + | Ethnic Group | Unknown | + + + Author + + + | Author | [facility] | | | and [place] | + + + | Organization | [facility] | | | [...] [place] | | | | | [address] | | + + + + + Care Team Providers + +------+ + | Care Telecommunications Network Planner Name | Role | Phone | + +------+ + | Ruy Chaparro MD | PCP | | + +------+ + Encounter Details +--------+ + + + + | Date | Type | Department | Care Team | Description | +--------+ + + + + | 10/26/ | Orders Only | [facility] | Art Red DO | | | 2014 | | [facility] | [address] | | | | | ONCOLOGY [address] | [place], [place] | | | | | [place], | [address] | | | | | [place] [address] | | | | | | [phone] | | | +--------+ + + + [...] MARTINEZ | | | | | | [id number] | | | | | | | | +--------+ + + + + | 03/13/ | Office | Cardiology | Sophie Delacruz, | | | 2019 | Visit | | MD Chivo DIAZ | | | | | | [place] | | | | | | [id number] | | | | | | | | +--------+ + + + + documented as of this encounter Visit Diagnoses Not on filedocumented in this encounter"
--- OUTSIDE RECORDS SUMMARY | ~2019-06-05 | XMS | Clinical Summary ---
Demographics + + + | Address | [address] | | | [place] [address] | + + + | Home Phone | | + + + | Preferred Language | Unknown | + + + | Marital Status | | + + + | Scientology Affiliation | Unknown | + + + | Race | Unknown | + + + | Ethnic Group | Unknown | + + + Author + + + | Author | [facility] (Historical as of | | | 01-14-19) | + + + | Organization | [facility] (Historical as of | | | 01-14-19) | + + + | Address | Unknown | + + + | Phone | Unavailable | + + + Support + + + + + | Name | Relationship | Address | Phone | + + + + + | Allie Limon | ECON | [address] | | | | | [place] | | | | | [address] | | + + + + + Care Team Providers + +------+ + | Care Structural Engineering Project Manager Name | Role | Phone | + +------+ + | Angel Lynch DO | PP | | + +------+ + Allergies + + + + + + | Active Allergy | Reactions | Severity | Noted | Comments | | | | | Date | | + + + + + + | Oxycodone | Other (See Comments) | Medium | 0505/20 | | | | | | 15 | | + + + + + + Current Medications + + +--------+---------+------+------+-------+ | Prescription | Sig. | Disp. | Refills | Star | End | Statu | | | | | | t | Date | s | | | | | | Date | | | + + +--------+---------+------+------+-------+ | Multiple Vitamin | Take 1 tablet by | | | | | Activ | | (MULTI VITAMIN MENS | mouth daily. | | | | | e | | PO) | | | | | | | + + +--------+---------+------+------+-------+ | tamsulosin | Take 0.4 mg by mouth | | | | | Activ | | (FLOMAX) 0.4 MG | After dinner. | | | | | e | | capsule | Administer 30 | | | | | | | | minutes after the | | | | | | | | same meal each day. | | | | | | | | Capsules should be | | | | | | | | swallowed whole; do | | | | | | | | not crush, chew, or | | | | | | | | open | | | | | | + + +--------+---------+------+------+-------+ | carvedilol (COREG) | Take 12.5 mg by | | | | | Activ | | 12.5 MG tablet | mouth 2 (two) times | | | | | e | | | daily with meals. | | | | | | + + +--------+---------+------+------+-------+ | | Take 25 mg by mouth | | | | | Activ | | hydrochlorothiazide | daily. | | | | | e | | (HYDRODIURIL) 25 MG | | | | | | | | tablet | | | | | | | + + +--------+---------+------+------+-------+ | allopurinol | Take 300 mg by mouth | | | | | Activ | | (ZYLOPRIM) 300 MG | daily. | | | | | e | | tablet | | | | | | | + + +--------+---------+------+------+-------+ | Lutein-Zeaxanthin | Take 1 tablet by | | | | | Activ | | 25-5 MG CAPS | mouth daily. | | | | | e | + + +--------+---------+------+------+-------+ | aspirin 81 MG EC | Take 81 mg by mouth | | | | | Activ | | tablet | daily with | | | | | e | | | breakfast. | | | | | | + + +--------+---------+------+------+-------+ | isosorbide | Take 30 mg by mouth | | | | | Activ | | mononitrate (IMDUR) | daily. | | | | | e | | 30 MG 24 hr tablet | | | | | | | + + +--------+---------+------+------+-------+ | nitroGLYCERIN | Place 0.4 mg under | | | | | Activ | | (NITROSTAT) 0.4 MG | the tongue every 5 | | | | | e | | SL tablet | (five) minutes as | | | | | | | | needed. | | | | | | + + +--------+---------+------+------+-------+ | losartan (COZAAR) | Take 50 mg by mouth | | | | | Activ | | 50 MG tablet | daily. | | | | | e | + + +--------+---------+------+------+-------+ | cyanocobalamin | Take 1,000 mcg by | | | | | Activ | | (VITAMIN B-12) 1000 | mouth daily. | | | | | e | | MCG tablet | | | | | | | + + +--------+---------+------+------+-------+ | levothyroxine | Take 75 mcg by mouth | | | | | Activ | | (SYNTHROID) 75 MCG | every morning | | | | | e | | tablet | before breakfast. | | | | | | + + +--------+---------+------+------+-------+ | simvastatin | Take 1 tablet by | 90 | | 08/29 | | Activ | | (ZOCOR) 40 MG tablet | mouth nightly. 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 | + + + + + | Overview: Overview: S/P TORS partial pharnygecomy, TORS with | | partial glossectomy, and neck dissection | + + + + + | CKD (chronic kidney disease), stage III | 02/27/2013 | + + + | Essential hypertension, benign | 02/27/2013 | + + + | BPH (benign prostatic hypertrophy) | 02/27/2013 | + + + | Anemia | 02/27/2013 | + + + | Gout | 02/27/2013 | + + + | Erectile dysfunction | 02/27/2013 | + + + Resolved Problems + + + + | Problem | Noted | Resolved | | | Date | Date | + + + + | Hyperkalemia | 02/28/20 | | | | 13 | 3 | + + + + Immunizations + + + + | Name | Dates Previously Given | Next Due | + + + + | Hepatitis A Adult | 08/24/2011 | | + + + + | Influenza, PF | 01/29/2011, 03/31/2003 | | | Trivalent | | | + + + + Family History + +------+ + + | Relation | Name | Status | Comments | + +------+ + + | Father | | | | | | | (Age | | | | | 68) | | + +------+ + + | Mother | | | | | | | (Age | | | | | 102) | | + +------+ + + Social History + +-------+ +--------+------+ | Tobacco Use | Types | Packs/Day | Years | Date | | | | | Used | | + +-------+ +--------+------+ | Never Smoker | | | | | + +-------+ +--------+------+ + +---+---+---+ | Smokeless Tobacco: | | | | | Never Used | | | | + +---+---+---+ + + +---------+ + | Alcohol Use | Drinks/We | oz/Week | Comments | | | ek | | | + + +---------+ + | Yes | | | occ | + + +---------+ + + + + | Sex Assigned at | Date Recorded | | | | + + + | Not on file | | + + + Last Filed Vital Signs + + + + | Vital Sign | Reading | Time Taken | + + + + | Blood Pressure | 102/60 | 03/09/2018 1:20 PM PDT | + + + + | Pulse | 60 | 03/09/2018 1:20 PM PDT | + + + + | Temperature | 36.4 C (97.6 F) | 06/22/2014 10:15 AM PST | + + + + | Respiratory Rate | 14 | 11/24/2013 9:30 AM PDT | + + + + | Oxygen Saturation | 97% | 03/09/2018 1:20 PM PDT | + + + + | Inhaled Oxygen | - | - | | Concentration | | | + + + + | Weight | 83.8 kg (184 lb 11.2 | 03/09/2018 1:20 PM PDT | | | oz) | | + + + + | Height | 182.9 cm (6') | 03/09/2018 1:20 PM PDT | + + + + | Body Mass Index | 25.05 | 03/09/2018 1:20 PM PDT | + + + + Plan of Treatment + + + + + | Health Maintenance | Due Date | Last Done | Comments | + + + + + | Vaccine: | | | | | Dtap/Tdap/Td (1 - | 3 | | | | Tdap) | | | | + + + + + | Vaccine: Zoster (1 | | | | | of 2) | 4 | | | + + + + + | Vaccine: | | | | | Pneumococcal 65+ | 9 | | | | High/Highest Risk (1 | | | | | of 2 - PCV13) | | | | + + + + + | Vaccine: Influenza | | 01/29/2011, 03/31/2003 | | | (#1) | 9 | | | + + + + + Results Not on filefrom Last 3 Months Insurance + +--------+ +------+-------+ + | Payer | Benefi | Subscriber | Type | Phone | Address | | | t Plan | ID | | | | | | / | | | | | | | Group | | | | | + +--------+ +------+-------+ + | MEDICARE | MEDICA | [id number] | | | [address] [place] [address] | | | RE | | | | [place] [id number] | | | IP-OP | | | | | + +--------+ +------+-------+ + | [employer] [place] | MUTUAL | [id number] | | | | | | [place] | | | | | | | [place] | | | | | + +--------+ +------+-------+ + + +--------+ +--------+ + + | Guarantor Name | Accoun | Relation to | Date | Phone | Billing Address | | | t Type | Patient | of | | | | | | | | | | + +--------+ +--------+ + + | SKYLER LIMON | Person | Self [birth year] | Home: | [address] | | | al/Fam | | [phone] | [phone] [place] | | | [place] | | | [phone] | [address] | + +--------+ +--------+ + +"
--- OUTSIDE RECORDS SUMMARY | ~2019-06-05 | XMS | Encounter Summary ---
Demographics + + + | Address | [address] | | | [place] [address] | + + + | Home Phone | | + + + | Preferred Language | Unknown | + + + | Marital Status | | + + + | Latter Day Affiliation | NON | + + + | Race | White | + + + | Ethnic Group | Not or | + + + Author + + + | Author | [facility] | + + + | Organization | [facility] | + + + | Address | Unknown | + + + | Phone | Unavailable | + + + Support + + +---------+ + | Name | Relationship | Address | Phone | + + +---------+ + | Kofia Alex | ECON | Unknown | | + + +---------+ + Care Team Providers + +------+ + | Care Web Marketing Assistant Name | Role | Phone | + +------+ + | Cong Freeman MD | PCP | | + +------+ + Encounter Details +--------+ + + + + | Date | Type | Department | Care Team | Description | +--------+ + + + + | 08/25/ | Document-Sc | Health Information | Other, Faculty | | | 2017 | anned | Services [address] | [phone] | | | | | [address] | | | | | | Mailcode: [id number] | | | | | | [facility] | | | | | | [place], [place] | | | | | | [address] | | | | | | [phone] | | | +--------+ + + + [...]
--- OUTSIDE RECORDS SUMMARY | ~2019-06-05 | XMS | Encounter Summary ---
Demographics + + + | Address | [address] | | | [place] [address] | + + + | Home Phone | | + + + | Preferred Language | Unknown | + + + | Marital Status | | + + + | Church Affiliation | Unknown | + + + | Race | Unknown | + + + | Ethnic Group | Unknown | + + + Author + + + | Author | [facility] | | | and [place] | + + + | Organization | [facility] | | | [...] [place] | | | | | [address] | | + + + + + Care Team Providers + +------+ + | Care Tapper Shank Name | Role | Phone | + +------+ + | Ruy Cahparro MD | PCP | | + +------+ [...] neoplasm of | [address] [place] | | | | | oropharynx, | [address] | [place], | | | | | unspecified | [place], | [place] [address] | | | | | site | [place] [address] | Phone: | | | | | Procedures | Phone: | [phone] | | | | | NM IV | [phone] | Fax: | | | | | INFUSION, | Fax: | [phone] | | | | | HYDRATION, | [phone] | | | | | | 31-60 [...] | +--------+ + + + + | 11/21/ | Hospital | [facility] | Art Red DO | Dysphagia; Carcinoma | | 2015 | Encounter | MED CTR CHEMO | [address] | of oropharynx (HCC) | | | | INFUSION [address] | [place], [place] | | | | | [place], | [address] | | | | | [place] [address] | | | | | | [phone] | | | +--------+ + + + [...] + + + | Blood Pressure | 124/61 | 11/21/2014 10:09 AM | | | | | PDT | | + + + + + | Pulse | 60 | 11/21/2014 10:09 AM | | | | | PDT | | + + + + + | Temperature | 36.2 C (97.2 F) | 11/21/2014 10:09 AM | | | | | PDT | | + + + + + | Respiratory Rate | - | - | | + + + + + | Oxygen Saturation | 99% | 11/21/2014 10:09 AM | | | | | PDT [...] + | morphine 10 mg/5 | Take 5 mL every 4-6 | 240 mL | 0 | 11/15/19 | | | mL | hr as needed for | | | 15 | 5 | | solutionIndications: | pain. | | [...] documented as of this encounter Progress Notes Farrah Rose RN - 11/21/2014 10:10 AM PDTDATE/TIME: 11/21/2014 10:12 Energy level: Low Fever or chills: No Appetite: Unable to swallow and appetite low. Nausea and/or vomiting: No Bowels: Using Miralax. Denies problems. Numbness and tingling: No Bleeding or bruising: No Karnofsky: 70 Nurses notes: Here for IV fluids. Feels slightly improved from yesterday. Farrah Rose RN 1150 Discharged ambulatory in satisfactory condition with IV intact. Farrah Rose RN documented in this encounter Plan of Treatment [...] [place] | | | | | | [id number] | | | | | | | | +--------+ + + + + | 03/13/ | Office | Cardiology | Sophie Delacruz, | | | 2019 | Visit | | MD Chivo DIAZ | | | | | | [facility] | | | | | | [address] | | | | | | | [...] heparin 100 units/mL flush | Given | 11/22/19 | 500 | | | | injection 500 Units 500 Units (5 | | 15 11:45 | Units | | | | mL), Intracatheter, PRN, Line | | AM PDT | | | | | Care, Starting 11/21/14 at | | | | | | | 0951, , | | | | | | + +--------+ +-------+------+------+ +---+---+ | | | +---+---+ + +---------+ +---+-------+---+ | sodium chloride 0.9% (NS) | New Bag | 11/22/19 | | 650 | | | infusion at 650 mL/hr, | | 15 10:03 | | mL/hr | | | Intravenous, ONCE, Wed11/21/14 at | | AM PDT | | | | | 1015, For 1 dose, Give 1 liter | [...] | | | | | | November 2., | | | | | | + +---------+ +---+-------+---+ +---+---+ | | | +---+---+ documented in this encounter"
--- OUTSIDE RECORDS SUMMARY | ~2019-06-05 | XMS | Encounter Summary ---
Demographics + + + | Address | [address] | | | [place] [address] | + + + | Home Phone | | + + + | Preferred Language | Unknown | + + + | Marital Status | | + + + | Sabianist Affiliation | Unknown | + + + | Race | Unknown | + + + | Ethnic Group | Unknown | + + + Author + + + | Author | [facility] | | | and [place] | + + + | Organization | [facility] | | [...] [place] | | | | | [address] | | + + + + + Care Team Providers + +------+ + | Care Associate Director Of Development Name | Role | Phone | + +------+ + | Ruy Chaparro MD | PCP | | + +------+ + Encounter Details +--------+ + + + + | Date | Type | Department | Care Team | Description | +--------+ + + + + | 11/14/ | Orders Only | [facility] | Janay Tammie | Mucositis due to | | 2014 | | [facility] RAD[facility] | MD Desi [address] | radiation therapy | | | | ONCOLOGY [address] | [address] [place] 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
--- OUTSIDE RECORDS SUMMARY | ~2019-06-05 | XMS | Encounter Summary ---
Demographics + + + | Address | [address] | | | [place] [address] | + + + | Home Phone | | + + + | Preferred Language | Unknown | + + + | Marital Status | | + + + | Jew Affiliation | NON | + + + | Race | White | + + + | Ethnic Group | Not or | + + + Author + + + | Author | [facility] | + + + | Organization | [facility] | + + + | Address | Unknown | + + + | Phone | Unavailable | + + + Support + + +---------+ + | Name | Relationship | Address | Phone | + + +---------+ + | Kofia Alex | ECON | Unknown | | + + +---------+ + Care Team Providers + +------+ + | Care Guest Experience Representative Name | Role | Phone | + +------+ + | Cong Freeman MD | PCP | | + +------+ + Encounter Details +--------+ + + + + | Date | Type | Department | Care Team | Description | +--------+ + + + + | 02/12/ | Documentati | Otolaryngology | Danny Abdullahi | | | 2017 | on | Head and Neck | MD Jessy [address] [facility] | | | | | Surgery Services at | [facility] | | | | | [address] | [place], [place] | | | | | [address] | [address] | | | | | Mailcode: [id number] | [phone] | | | | | [facility] | | | | | | [place], [place] | | | | | | [address] | | | | | | [phone] | | | +--------+ + + + [...]
--- OUTSIDE RECORDS SUMMARY | ~2019-06-05 | XMS | Encounter Summary ---
Demographics + + + | Address | [address] | | | [place] [address] | + + + | Home Phone | | + + + | Preferred Language | Unknown | + + + | Marital Status | | + + + | Mu-Ism Affiliation | Unknown | + + + | Race | Unknown | + + + | Ethnic Group | Unknown | + + + Author + + + | Author | [facility] | | | and [place] | + + + | Organization | [facility] | | [...] [place] | | | | | [address] | | + + + + + Care Team Providers + +------+ + | Care Minute Clerk Name | Role | Phone | + +------+ + | Ruy Chaparro MD | PCP | | + +------+ + Reason for Visit Evaluate & Treat (Routine) +--------+--------+ + + + + | Status | Reason | Specialty | Diagnoses / | Referred By | Referred To | | | | | Procedures | Contact | Contact | +--------+--------+ + + + + | Closed | | Radiation | Diagnoses | Prakash, | Art Red | | | | Oncology | Consult/Ca | Will Weeks MD | C, DO [address] | | | | | base of | | [address] | | | | | tongue/Ej | | [place], | | | | | MD Prakash | | [place] [address] | | | | | [facility] | | Phone: | | | | | Procedures | | [phone] | | | | | NEW PATIENT | | Fax: | | | | | | | [phone] | +--------+--------+ + + + + Encounter Details +--------+ + + + + | Date | Type | Department | Care Team | Description | +--------+ + + + + | 11/05/ | Hospital | [facility] | Art Rde, | | | 2015 | Encounter | MED CTR RADIATION | [address] | | | | | ONCOLOGY [address] | [place] | | | | | [place], | [address] | | | | | [place] [address] | | | | | | [phone] | | | +--------+ + + + [...] + + documented as of this encounter Medications at Time of Discharge [...] patch onto | 10 | 0 | 10/04/19 | | | (DURAGESIC) 12 | the skin every 72 | patch | | 15 | 5 | | mcg/hr | hours. | | | | | + + [...] [place] | | | | | | [address] | | | | | | | | +--------+ + + + + | 03/13/ | Office | Cardiology | Sophie Delacruz, | | | 2019 | Visit | Rosemarie DIAZ | | | | | | [place] | | | | | | [id number] | | | | | | | | +--------+ + + + + documented as of this encounter Visit Diagnoses Not on filedocumented in this encounter"
--- OUTSIDE RECORDS SUMMARY | ~2019-06-05 | XMS | Encounter Summary ---
Demographics + + + | Address | [address] | | | [place] [address] | + + + | Home Phone | | + + + | Preferred Language | Unknown | + + + | Marital Status | | + + + | Oriental Orthodox Affiliation | Unknown | + + + | Race | Unknown | + + + | Ethnic Group | Unknown | + + + Author + + + | Author | [facility] | | | and [place] | + + + | Organization | [facility] | | [...] [place] | | | | | [address] | | + + + + + Care Team Providers + +------+ + | Care Asphalt Paver Name | Role | Phone | + [...] [place], [place] | | | | | [place], | [address] | | | | | [place] [address] | | | | | | [phone] | | | +--------+ + + + [...] [place] | | | | | | [id number] | | | | | | | | +--------+ + + + + | 03/13/ | Office | Cardiology | Sophie Delacruz, | | | 2019 | Visit | | MD Chivo DIAZ | | | | | | [place] | | | | | | [phone] | | | | | | | | +--------+ + + + + documented as of this encounter Visit Diagnoses Not on filedocumented in this encounter"
--- OUTSIDE RECORDS SUMMARY | ~2019-06-05 | XMS | Encounter Summary ---
Demographics + + + | Address | [address] | | | [place] [address] | + + + | Home Phone | | + + + | Preferred Language | Unknown | + + + | Marital Status | | + + + | Anglican Affiliation | NON | + + + | Race | White | + + + | Ethnic Group | Not or | + + + Author + + + | Author | [facility] | + + + | Organization | [facility] | + + + | Address | Unknown | + + + | Phone | Unavailable | + + + Support + + +---------+ + | Name | Relationship | Address | Phone | + + +---------+ + | Kofia Alex | ECON | Unknown | | + + +---------+ + Care Team Providers + +------+ + | Care Chief Passenger Ship Steward/Stewardess Name | Role | Phone | + +------+ + | Cong Freeman MD | PCP | | + +------+ + Reason for Visit + + + | Reason | Comments | + + + | Research data | | | collection | | + + + Encounter Details +--------+ + + + + | Date | Type | Department | Care Team | Description | +--------+ + + + + | 04/04/ | Documentati | Otolaryngology | Marcus Hare, | Research data | | 2015 | on | Speech Therapy | QUALITY ASSURANCE ADVISOR [address] | collection | | | | Services at [facility] | [address] | | | | | [address] | [place] [address] | | | | | Loop Mailcode: PV01 | [phone] | | | | | Physician's | | | | | | [place], | | | | | | [place] [address] | | | | | | [phone] | | | +--------+ + + + [...]
--- OUTSIDE RECORDS SUMMARY | ~2019-06-05 | XMS | Encounter Summary ---
Demographics + + + | Address | [address] | | | [place] [address] | + + + | Home Phone | | + + + | Preferred Language | Unknown | + + + | Marital Status | | + + + | Amish Affiliation | Unknown | + + + | Race | Unknown | + + + | Ethnic Group | Unknown | + + + Author + + + | Author | [facility] | | | and [place] | + + + | Organization | [facility] | | | [...] [place] | | | | | [address] | | + + + + + Care Team Providers + +------+ + | Care Seo Marketing Specialist Name | Role | Phone | + +------+ + | Ruy Chaparro MD | PCP | | + +------+ + Reason for Visit +--------+ + | Reason | Comments | +--------+ + | Other | | +--------+ + Encounter Details +--------+ + + + + | Date | Type | Department | Care Team | Description | +--------+ + + + + | 12/31/ | Telephone | [facility] | Faby, | Other | | 2014 | | [facility] MED[facility] | Jason Holloway MD [address] | | | | | ON[facility]OGY CLINIC [address] [place] | | | | | [address] [place] | [place] [address] | | | | | [place] [address] | [phone] | | | | | [phone] | | | +--------+ + + + [...] [place] | | | | | | [address] | | | | | | | | +--------+ + + + + | 03/13/ | Office | Cardiology | Sophie Delacruz, | | | 2020 | Visit | | MD Chivo DIAZ | | | | | | [place] | | | | | | [address] | | | | | | | | +--------+ + + + + documented as of this encounter Visit Diagnoses Not on filedocumented in this encounter"
--- OUTSIDE RECORDS SUMMARY | ~2019-06-05 | XMS | Encounter Summary ---
Demographics + + + | Address | [address] | | | [place] [address] | + + + | Home Phone | | + + + | Preferred Language | Unknown | + + + | Marital Status | | + + + | Jain Affiliation | Unknown | + + + | Race | Unknown | + + + | Ethnic Group | Unknown | + + + Author + + + | Author | [facility] | | | and [place] | + + + | Organization | [facility] | | | [...] [place] | | | | | [address] | | + + + + + Care Team Providers + +------+ + | Care Equipment Washer Name | Role | Phone | + +------+ + | Ruy Chaparro MD | PCP | | + +------+ + Reason for Referral Evaluate & Treat (Routine) +--------+ + + + + + | Status | Reason | Specialty | Diagnoses / | Referred By | Referred To | | | | | Procedures | Contact | Contact | +--------+ + + + + + | Closed | Specialty | Oncology | Diagnoses | , | Tori, | | | Services | | Cancer of | Art Holloway DO | [place] | | | Required | | base of | [address] | MD Jason | | | | | tongue (HCC) | [address] | [address] | | | | | | [place], | [place] | | | | | | [place] [address] | [place], [place] | | | | | | Phone: | [phone] Phone: | | | | | | [phone] | [phone] | | | | | | Fax: | Fax: | | | | | | [phone] | [phone] | +--------+ + + + + + Diagnostic/Screening (Routine) +--------+--------+ + + + + | Status | Reason | Specialty | Diagnoses / | Referred By | Referred To | | | | | Procedures | Contact | Contact | +--------+--------+ + + + + | Closed | | Radiology | Diagnoses | , | | | | | | Cancer of | Art Holloway DO | | | | | | base of | [address] | | | | | | tongue (HCC) | [address] | | | | | | Procedures | [place], | | | | | | MRI Neck | [place] [address] | | | | | | Soft Tissue | Phone: | | | | | | Only w wo | [phone] | | | | | | Contrast | Fax: | | | | | | [address] | [phone] | | | | | | DICTATION | | | +--------+--------+ + + + + Diagnostic/Screening (Routine) +--------+--------+ + + + + | Status | Reason | Specialty | Diagnoses / | Referred By | Referred To | | | | | Procedures | Contact | Contact | +--------+--------+ + + + + | Closed | | Radiology | Diagnoses | Lord, | [address] | | | | | Cancer of | Art C, DO | [address] [place] | | | | | base of | [address] | [place], | | | | | tongue (HCC) | [address] | [place] [address] | | | | | Procedures | [place], | Phone: | | | | | [place] | [place] [address] | [phone] | | | | | Treatment | Phone: | Fax: | | | | | Plan Complex | [phone] | [phone] | | | | | | Fax: | | | | | | | [phone] | | +--------+--------+ + + + + Evaluate & Treat (Routine) +--------+ + + + + + | Status | Reason | Specialty | Diagnoses / | Referred By | Referred To | | | | | Procedures | Contact | Contact | +--------+ + + + + + | Closed | Specialty | Speech | Diagnoses | Lord, | [facility] | | | Services | Pathology | Cancer of | Art Holloway DO | [employer] [address] | | | Required | | base of | [address] | [place] | | | | | tongue (HCC) | [address] | [place], [place] | | | | | [address] | [place], | [address] | | | | | (ICD-9-CM) - | [place] [address] | Phone: | | | | | Cancer of | Phone: | [phone] | | | | | base of | [phone] | Fax: | | | | | tongue (HCC) | Fax: | [phone] | | | | | Procedures | [phone] | | | | | | Speech | | | +--------+ + + + + + Reason for Visit Evaluate & Treat (Routine) +--------+--------+ + + + + | Status | Reason | Specialty | Diagnoses / | Referred By | Referred To | | | | | Procedures | Contact | Contact | +--------+--------+ + + + + | Closed | | Radiation | Diagnoses | Prakash, | Art Saavedra | | | | Oncology | Consult/Ca | Will Weeks MD | C, DO [address] | | | | | base of | | [address] | | | | | tongue/Ej | | [place], | | | | | MD Prakash | | [place] [address] | | | | | [facility] | | Phone: | | | | | Procedures | | [phone] | | | | | NEW PATIENT | | Fax: | | | | | | | [phone] | +--------+--------+ + + + + Encounter Details +--------+ + + + + | Date | Type | Department | Care Team | Description | +--------+ + + + + | 09/26/ | Hospital | [facility] | Art Saavedra DO | Cancer of base of | | 2015 | Encounter | MED [facility] RAD[facility]ATION | [address] | tongue (HCC) | | | | ONCOLOGY [address] | [place] | (Primary Dx) | | | | [place], | [id number] | | | | | [place] [address] | | | | | | [phone] | | | +--------+ + + + + Social History + +-------+ +--------+------+ | Tobacco Use | Types | Packs/Day | Years | Date | | | | | Used | | + +-------+ +--------+------+ | Never Assessed | | | | | + +-------+ +--------+------+ + + + | Sex Assigned at [...] | Appointment | Radiation Oncology | Art Saavedra DO | | | 2019 | | | [address] | | | | | | [place] | | | | | | [address] | | | | | | | | +--------+ + + + + | 03/13/ | Office | Cardiology | Sophie Delacruz, | | | 2019 | Visit | | MD Chivo DIAZ | | | | | | [place] | | | | | | [id number] | | | | | | | | +--------+ + + + + + +---------+--------+ + + | Name | Type | Priori | Associated Diagnoses | Order Schedule | | | | ty | | | + +---------+--------+ + + | MRI Neck Soft Tissue | Imaging | Routin | Cancer of base of | Expected: | | Only w wo Contrast | | e | tongue (HCC) | 09/27/2014, Expires: | | | | | | 09/27/2015 | + +---------+--------+ + + + + +--------+ + + | Name | Type | Priori | Associated Diagnoses | Order Schedule | | | | ty | | | + + +--------+ + + | AMB Referral to [facility] | Outpatient | Routin | Cancer of base of | Ordered: 09/26/2014 | | Speech Therapy | Referral | e | tongue (HCC) | | + + +--------+ + + | AMB REFERRAL TO [facility] | Outpatient | Routin | Cancer of base of | Ordered: 09/27/2014 | | [facility] [place] [facility] | Referral | e | tongue (HCC) | | + + +--------+ + + documented as of this encounter Procedures + +--------+ + + + | Procedure Name | Priori | Date/Time | Associated Diagnosis | Comments | | | ty | | | | + +--------+ + + + | CT TREATMENT PLAN | Routin | 10/03/2014 | Cancer of base of | Results for this | | COMPLEX | e | 11:36 AM | tongue (HCC) | procedure are in the | | | | PDT | | results section. | + +--------+ + + + documented in this encounter Results CT Treatment Plan Complex (10/03/2014 11:36 AM PDT) + + | Specimen | + + | | + + + + + | Narrative | Performed At | + + + | No Radiologist interpretation, please see Chart Review. 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
--- OUTSIDE RECORDS SUMMARY | ~2019-06-05 | XMS | Encounter Summary ---
Demographics + + + | Address | [address] | | | [place] [address] | + + + | Home Phone | | + + + | Preferred Language | Unknown | + + + | Marital Status | | + + + | Congregational Affiliation | NON | + + + | Race | White | + + + | Ethnic Group | Not or | + + + Author + + + | Author | [facility] | + + + | Organization | [facility] | + + + | Address | Unknown | + + + | Phone | Unavailable | + + + Support + + +---------+ + | Name | Relationship | Address | Phone | + + +---------+ + | Kofia Alex | ECON | Unknown | | + + +---------+ + Care Team Providers + +------+ + | Care Plant And Maintenance Technician Name | Role | Phone | + [...] Head and Neck | MD Jessy [address] [facility] | | | | | Surgery Services at | [facility] | | | | | [address] | [place], [place] | | | | | [address] | [address] | | | | | Mailcode: PV01 | [phone] | | | | | [facility]ilion | | | | | | [place], [place] | | | | | | [address] | | | | | | [phone] | | | +--------+ + + + [...]
--- OUTSIDE RECORDS SUMMARY | ~2019-06-05 | XMS | Encounter Summary ---
Demographics + + + | Address | [address] | | | [place] [address] | + + + | Home Phone | | + + + | Preferred Language | Unknown | + + + | Marital Status | | + + + | Adventist Affiliation | Unknown | + + + | Race | Unknown | + + + | Ethnic Group | Unknown | + + + Author + + + | Author | [facility] | | | and [place] | + + + | Organization | [facility] | | | [...] [place] | | | | | [address] | | + + + + + Care Team Providers + +------+ + | Care Manager Of Corporate Communications Name | Role | Phone | + [...] neoplasm of | [address] | [address] [place] [address] | | | | | oropharynx, | [address] | [place], | | | | | unspecified | [place], | [place] [address] | | | | | site | [place] [address] | Phone: | | | | | Procedures | Phone: | [phone] | | | | | [place] IV | [phone] | Fax: | | | | | INFUSION, | Fax: | [phone] | | | | | HYDRATION, | [phone] | | | | | | 31-60 MIN | | | | | | | [place] IV | | | | | | | INFUSION, | | | | | | | HYDRATION, | | | | | | | 31-60 MIN | | | +--------+--------+ + + + + Encounter Details +--------+ + + + + | Date | Type | Department | Care Team | Description | +--------+ + + + + | 11/29/ | Hospital | [facility] | Art Red DO | Dysphagia; Carcinoma | | 2015 | Encounter | MED CTR CHEMO | [address] | of oropharynx (HCC) | | | | INFUSION [address] | [place], [place] | | | | | [place], | [address] | | | | | [place] [address] | | | | | | [phone] | | | +--------+ + + + [...] + + + | Blood Pressure | 113/54 | 11/29/2014 8:03 AM | | | | | PDT | | + + + + + | Pulse | 60 | 11/29/2014 8:03 AM | | | | | PDT | | + + + + + | Temperature | 36.4 C (97.5 F) | 11/29/2014 8:03 AM | | | | | PDT | | + + + + + | Respiratory Rate | - | - | | + + + + + | Oxygen Saturation | 96% | 11/29/2014 8:03 AM | | | | | PDT [...] as of this encounter Progress Notes Kathy Cason, RN - 11/29/2014 9:34 AM PDTDc/d amb in good condition with family. Has last radiation today. Told him to call if he needs us and reminded him recovery could be sl ow. Melissa Otero RN - 11/29/2014 8:04 AM PDTHere for IVF reports that he didn't sleep too well last ni ght very happy that today is his last radiation treatment. 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
--- OUTSIDE RECORDS SUMMARY | ~2019-06-05 | XMS | Encounter Summary ---
Demographics + + + | Address | [address] | | | [place] [address] | + + + | Home Phone | | + + + | Preferred Language | Unknown | + + + | Marital Status | | + + + | Oriental Orthodox Affiliation | NON | + + + | Race | White | + + + | Ethnic Group | Not or | + + + Author + + + | Author | [facility] | + + + | Organization | [facility] | + + + | Address | Unknown | + + + | Phone | Unavailable | + + + Support + + +---------+ + | Name | Relationship | Address | Phone | + + +---------+ + | Kofia Alex | ECON | Unknown | | + + +---------+ + Care Team Providers + +------+ + | Care Financial Sales Manager Name | Role | Phone | + +------+ + | Cong Freeman MD | PCP | | + +------+ + Encounter Details +--------+ + + + + | Date | Type | Department | Care Team | Description | +--------+ + + + + | 02/25/ | Documentati | Otolaryngology | Danny Abdullahi | | | 2016 | on | Head and Neck | MD Jessy [address] [facility] | | | | | Surgery Services at | [facility] | | | | | [address] | [place], [place] | | | | | [address] | [address] | | | | | Mailcode: PV01 | [phone] | | | | | [facility] | | | | | | [place], [place] | | | | | | [address] | | | | | | [phone] | | | +--------+ + + + [...]
--- OUTSIDE RECORDS SUMMARY | ~2019-06-05 | XMS | Encounter Summary ---
Demographics + + + | Address | [address] | | | [place] [address] | + + + | Home Phone | | + + + | Preferred Language | Unknown | + + + | Marital Status | | + + + | Denominational Affiliation | Unknown | + + + [...] [place] | | | | | [address] | | + + + + + Care Team Providers + +------+ + | Care Box Folding Machine Operator Name | Role | Phone | [...] | +--------+ + + + + | 07/22/ | Telephone | [facility] | Art Red DO | Other | | 2016 | | [facility] | [address] | | | | | ONCOLOGY CLINIC [address] | [place], [place] | | | | | [address] [place] | [address] | | | | | [place] [address] | | | | | | [phone] | | | +--------+ + + + [...] [place] | | | | | | [address] | | | | | | | | +--------+ + + + + | 03/13/ | Office | Cardiology | Sophie Delacruz, | | | 2019 | Visit | | MD Chivo DIAZ | | | | | | [place] | | | | | | [address] | | | | | | | | +--------+ + + + + documented as of this encounter Visit Diagnoses Not on filedocumented in this encounter"
--- OUTSIDE RECORDS SUMMARY | ~2019-06-05 | XMS | Encounter Summary ---
Demographics + + + | Address | [address] | | | [place] [address] | + + + | Home Phone | | + + + | Preferred Language | Unknown | + + + | Marital Status | | + + + | Mandaeism Affiliation | Unknown | + + + | Race | Unknown | + + + | Ethnic Group | Unknown | + + + Author + + + | Author | [facility] | | | and [place] | + + + | Organization | [facility] | | | [...] [place] | | | | | [address] | | + + + + + Care Team Providers + +------+ + | Care Surgery Tech Name | Role | Phone | + +------+ + | Ruy Chaparro MD | PCP | | + +------+ + Reason for Visit +--------+ + | Reason | Comments | +--------+ + | Other | | +--------+ + Encounter Details +--------+ + + + + | Date | Type | Department | Care Team | Description | +--------+ + + + + | 09/17/ | Telephone | ANTHONY RODRIGUEZ | Art Red DO | Other | | 2015 | | [facility] | [address] | | | | | ONCOLOGY CLINIC [address] | [place], [place] | | | | | [facility] | [id number] | | | | | [place] [address] | | | | | | [phone] | | | +--------+ + + + [...] [place] | | | | | | [address] | | | | | | | | +--------+ + + + + | 03/13/ | Office | Cardiology | Sophie Delacruz, | | | 2019 | Visit | | MD [facility] | | | | | | [place] | | | | | | [address] | | | | | | | | +--------+ + + + + documented as of this encounter Visit Diagnoses Not on filedocumented in this encounter"
--- OUTSIDE RECORDS SUMMARY | ~2019-06-05 | XMS | Encounter Summary ---
Demographics + + + | Address | [address] | | | [place] [address] | + + + | Home Phone | | + + + | Preferred Language | Unknown | + + + | Marital Status | | + + + | Zoroastrian Affiliation | Unknown | + + + | Race | Unknown | + + + | Ethnic Group | Unknown | + + + Author + + + | Author | [facility] | | | and [place] | + + + | Organization | [facility] | | [...] [place] | | | | | [address] | | + + + + + Care Team Providers + +------+ + | Care Glass Calibrator Name | Role | Phone | + [...] [place] | | | | | [address] [place] | [place] [address] | | | | | [place] [address] | [phone] | | | | | [phone] | | | +--------+ + + + [...] [place] | | | | | | [address] | | | | | | | | +--------+ + + + + | 03/13/ | Office | Cardiology | Sophie Delacruz, | | | 2019 | Visit | | MD [facility] | | | | | | [place] | | | | | | [address] | | | | | | | | +--------+ + + + + documented as of this encounter Visit Diagnoses Not on filedocumented in this encounter"
--- OUTSIDE RECORDS SUMMARY | ~2019-06-05 | XMS | Encounter Summary ---
Demographics + + + | Address | [address] | | | [place] [address] | + + + | Home Phone | | + + + | Preferred Language | Unknown | + + + | Marital Status | | + + + | Tenriism Affiliation | NON | + + + [...] Team Providers + +------+ + | Care Brass Pickler Name | Role | Phone | + +------+ + | Ruy Chaparro MD | PCP | | + +------+ + Reason for Visit Consultation (Routine) +--------+--------+ + + + + | Status | Reason | Specialty | Diagnoses / | Referred By | Referred To | | | | | Procedures | Contact | Contact | +--------+--------+ + + + + | Closed | | Radiation | Diagnoses | Bradly, | [place], | | | | Oncology | Malignant | Cong Monaco MD | MD Nicho | | | | | neoplasm of | [address] | [address] | | | | | base of | [facility] | [facility] | | | | | tongue (HCC) | [address] | [address] [place], | | | | | Procedures | [place], | [place] | | | | | Consult, | [place] [address] | [address] | | | | | treat, f/u | Phone: | Phone: | | | | | | [phone] | [phone] | | | | | | Fax: | Fax: | | | | | | [phone] | [phone] | +--------+--------+ + + + + Encounter Details +--------+ + + + + | Date | Type | Department | Care Team | Description | +--------+ + + + + | 08/10/ | Office | Radiation Oncology | Nicho Wilhelm MD | OUTSIDE PROGRESS | | 2015 | Visit-ECX | at [place] [address] | [address] | NOTES | | | | [address] | [place], | | | | | Mailcode: [id number] | [place] [address] | | | | | [facility] | [phone] | | | | | [place], [place] | | | | | | [address] | | | | | | [phone] | | | +--------+ + + + [...] documented as of this encounter Progress Notes Nicho Wilhelm MD - 08/11/2014 8:44 AM PDTI saw and examined Mr. Johnson with Dr. Ej Meeks at the [facility]. I agree with Dr. Meeks's findings on examination and his treatment plan. I performed the fiberoptic examination that he describes. 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 We discussed definitive radiotherapy for this malignancy. He wishes to pursue TORS and neck dissection for this disease. We further discussed indications for post-operative radiotherapy depending upon the finding s at pathology including close or positive surgical margins, multiple positive lymph nodes o r extracapsular meka extension. Dr. Ej meeks left a brief note in CPRS to communicate with [facility] providers. JH Will Muñoz MD,Ph D - 08/10/2014 7:25 PM PDT RADIATION ONCOLOGY CONSULTATION MD ID: [id number] Requesting Physician: Dr. Danny Abdullahi MD CHIEF COMPLAINT: head/neck cancer HPI: Navi Johnson is a 79 year old man with a history of CAD, CKD, and DMII who presents with a new diagnosis of head and neck squamous cell carcinoma. He initially presented to [facility] with around 3 months of L sided facial pain and otalgia, believing that he was exp eriencing problems with dental implants. His symptoms persisted despite 2 rounds of antibio tic therapy, and he was referred by his PCP for a CT that revealed a 2.9 cm lesion on his L BOT as well as a necrotic appearing 2 cm L level II node. He underwent panendoscopy on 07/24, and the pathology from that procedure revealed a moderate to poorly differentiated p16+ SCC. He endorses 7 lb unintentional weight loss 2/2 odynophagia, but he denies any other c onstitutional symptoms. The patient is being seen today in consultation for consideration of radiotherapy options. 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 ALLERGIES: Allergies Allergen Reactions Acetaminophen Unknown MEDICATIONS: REVIEW OF SYSTEMS: No prior history of radiation therapy. Remainder of ROS is otherwise negative except as re ported in HPI, PMH and PSH. PHYSICAL EXAM: GEN: Well developed elderly man in NAD HEENT: Oropharynx clear. MMM. No tongue deviation LYMPH:2 cm palpable mobile L level II cervical node CV: RRR, no M/G/R PULM: CTAB, no R/R/W EXT: WWP. No NARINDER. NEURO: Alert and oriented to time/place/situation. CN2-12 intact on exam. Strength/sensati on intact in bilateral upper/lower extremities. Non-focal. Navi Johnson underwent a fiberoptic exam to better evaluate the tumor. Dr Wilhelm performed the exam. Fiberoptic exam was necessary because this anatomy is not easily visualized by any other ma ans. The theL nares, was prepared with a combination of phenylephrine and lidocaine to improve t he passage of the fiberoptic scope and to numb the examined area. The Larynx was visualized. Findings: There was a pedunculated mass emerging from the L BOT that did not appear to exte nd across midline or beyond the BOT borders. The larynx was visualized. The cords moved we ll and were without abnormality. The patient tolerated the procedure well. The patient was instructed to not eat or drink fo r the next 30 minutes to allow the topical anestesia to wear off. LABORATORY: IMAGING: CT Neck W, 07/10/14: PET CT, 08/09/14: PATHOLOGY: DIAGNOSIS: Navi Johnson is a 79 y.o. man with Stage III: T2N1M0, p16+, moderate to poorly differentiated SCC of the L BOT. ECOG PERFORMANCE STATUS: 0= Fully active, able to carry on all pre-disease performance wit hout restriction RECOMMENDATIONS: Mr. Johnson is a very pleasant gentleman who presents with a new diagnosis of head and neck ca ncer. He has Stage III disease with a L BOT lesion and a solitary L level II node. We had a detailed discussion with Mr. Johnson regarding his treatment options and the possibility of d efinitive chemoradiotherapy vs surgery. After weighing his options, he has elected to pursu e TORS with the hope of avoiding chemoradiotherapy entirely. We discussed the possibility o f requiring adjuvant RT or chemoRT based on the results of his surgical pathology. We infor med him that we are available to answer questions or arrange care should he change his mind with regard to his treatment course. This patient was seen, examined, and discussed with my attending, Dr. Nicho Wilhelm MD, who agrees with this assessment and plan. Will Meeks MD, PhD Dept of Radiation Medicine [facility] CC: A copy of this note has been sent to the referring provider, Dr. Danny Abdullahi MD.E lectronically signed by Will Meeks MD,PhD at 08/11/2014 8:51 AM PDTdocumented in this encounter Plan of Treatment Not on filedocumented as of this encounter Visit Diagnoses Not on filedocumented in this encounter"
--- OUTSIDE RECORDS SUMMARY | ~2019-06-05 | XMS | Encounter Summary ---
Demographics + + + | Address | [address] | | | [place] [address] | + + + | Home Phone | | + + + | Preferred Language | Unknown | + + + | Marital Status | | + + + | Amish Affiliation | Unknown | + + + | Race | Unknown | + + + | Ethnic Group | Unknown | + + + Author + + + | Author | [facility] | | | and [place] | + + + | Organization | [facility] | | [...] [place] | | | | | [address] | | + + + + + Care Team Providers + +------+ + | Care Computer Equipment Installer Name | Role | Phone | + +------+ + | Angel Lynch DO | PCP | | + +------+ + Encounter Details +--------+ + + + + | Date | Type | Department | Care Team | Description | +--------+ + + + + | 08/27/ | Orders Only | [facility] | Mirna Hare, SCALE INSTALLER | | | 2015 | | CON[address] | [address] | | | | | [address] | [place] [address] | | | | | [place], [place] | [phone] | | | | | [address] | | | | | | [phone] | | | +--------+ + + + [...] [place] | | | | | | [address] | | | | | | | | +--------+ + + + + | 03/13/ | Office | Cardiology | Sophie Delacruz, | | | 2019 | Visit | | MD Chivo DIA[facility] | | | | | | [place] | | | | | | [id number] | | | | | | | | +--------+ + + + + documented as of this encounter Procedures + +--------+ + + + | Procedure Name | Priori | Date/Time | Associated Diagnosis | Comments | | | ty | | | | + +--------+ + + + | ECHO INTERPRETATION | Routin | 08/28/2015 | | Results for this | | OF OUTSIDE FILMS | e | 11:53 AM | | procedure are in the | | | | PDT | | results section. | + +--------+ + + + documented in this encounter Results ECHO Interpretation of Outside Films (08/28/2015 11:53 AM PDT) + + | Specimen | + + | | + + + + + | Impressions | Performed At | + + + | 1. See Dictation. 2. LV dimensions and systolic function NML, Grade | | | 1 diastolic abnormality, [place] visually estimates LVEF 60-65%. Mild | | | LAE. RA/RV NML. 3. Aortic valve mildly sclerotic, no /AI. | | | Mitral valve has mild nodular calcification, trace MR. Tricuspid | | | valve grossly NML, trace TR. Pulmonic valve not seen well, trace | | | PI. 4. No Pericardial effusion. 5. IVC not seen well. Est systolic | | | PAP 14mmHg+CVP. 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 | | + + + + + + | Narrative | Performed At | + + + | Patient Name: Navi Johnson Date of : 1935 | | | Performing Physician: Marco Cristina DO | | | | | | INDICATIONS PULMONARY HTN CONCLUSIONS | | | 1. See Dictation. 2. LV dimensions and systolic function NML, Grade 1 | | | diastolic abnormality, [place] visually estimates LVEF 60-65%. Mild | | | LAE. RA/RV NML. 3. Aortic valve mildly sclerotic, no /AI. Mitral | | | valve has mild nodular calcification, trace MR. Tricuspid valve | | | grossly NML, trace TR. Pulmonic valve not seen well, trace PI. 4. No | | | Pericardial effusion. 5. IVC not seen well. Est systolic PAP | | | 14mmHg+CVP. 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 FINDINGS | | | -------- ECG rhythm: Sinus rhythm. Study: This was a technically | | | adequate study. Left Ventricle: Overall left ventricular systolic | | | function is normal with, an EF between 60 - 65 %. Left Ventricle: The | | | left ventricle cavity size is normal. Left Ventricle: Left | | | ventricular wall thickness is normal. Left Ventricle: The diastolic | | | filling pattern indicates impaired relaxation consistent with mild | | | dysfunction (Grade I). Right Ventricle: The right ventricle is normal | | | in size and function. Left Atrium: The left atrium is mildly | | | dilated. Right Atrium: The right atrium is normal in size. Aortic | | | Valve: The aortic valve is trileaflet and appears structurally normal. | | | Aortic Valve: There is mild aortic valve sclerosis without stenosis. | | | Aortic Valve: There is no evidence of aortic regurgitation. 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 Mitral | | | Valve: There is trace mitral regurgitation. Tricuspid Valve: The | | | tricuspid valve appears structurally normal. Tricuspid Valve: Trace | | | tricuspid regurgitation present. Pulmonic Valve: The pulmonic valve | | | was not well visualized. Pulmonic Valve: Trace pulmonic | | | regurgitation. Pericardium: There is no pericardial effusion. | | | IVC/Hepatic Veins: The IVC was not well visualized. MEASUREMENTS | | | LVEF MOD A2C: 56.38 % SV MOD A2C: 30.73 ml | | | LVEDV MOD A2C: 54.50 ml LVLd A2C: 7.73 cm LVESV MOD A2C: | | | 23.76 ml LVLs A2C: 6.08 cm Event Manager: MARINA Authenticated by: | | | Marco Cristina DO Report Date/Time: -- [id number] | | + + + + + | Procedure Note | + + | Maciel, Rad Conversion - 01/19/2019 9:27 PM PDT Patient Name: Devon Johnson of | | : 1935 Performing Physician: Marco Cristina | | DO INDICATIONS P | | ULMONARY HTN CONCLUSIONS 1. See Dictation. 2. LV dimensions and systolic | | function NML, Grade 1 diastolic abnormality, [place] visually estimates LVEF 60-65%. | | Mild LAE. RA/RV NML. 3. Aortic valve mildly sclerotic, no /AI. Mitral valve has mild | | nodular calcification, trace MR. Tricuspid valve grossly NML, trace TR. Pulmonic | | valve not seen well, trace PI. 4. No Pericardial effusion. 5. IVC not seen well. Est | | systolic PAP 14mmHg+CVP. 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 FINDINGS--------ECG | | rhythm: Sinus rhythm.Study: This was a technically adequate study.Left Ventricle: | | Overall left ventricular systolic function is normal with, an EF between 60 - 65 %.Left | | Ventricle: The left ventricle cavity size is normal.Left Ventricle: Left ventricular | | wall thickness is normal.Left Ventricle: The diastolic filling pattern indicates | | impaired relaxation consistent with mild dysfunction (Grade I).Right Ventricle: The | | right ventricle is normal in size and function.Left Atrium: The left atrium is mildly | | dilated.Right Atrium: The right atrium is normal in size.Aortic Valve: The aortic valve | | is trileaflet and appears structurally normal.Aortic Valve: There is mild aortic valve | | sclerosis without stenosis.Aortic Valve: There is no evidence of aortic | | regurgitation.Mitral Valve: 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 MEASUREMENTS LVEF MOD A2C: 56.38 %SV MOD A2C: | | 30.73 mlLVEDV MOD A2C: 54.50 mlLVLd A2C: 7.73 cmLVESV MOD A2C: 23.76 mlLVLs A2C: | | 6.08 cm Event Manager: DBSAuthenticated by: Marco Cox Date/Time: -- | | [id number] IMPRESSION: 1. See Dictation. 2. LV dimensions and systolic | | function NML, Grade 1 diastolic abnormality, [place] visually estimates LVEF 60-65%. | | Mild LAE. RA/RV NML. 3. Aortic valve mildly sclerotic, no /AI. Mitral valve has mild | | nodular calcification, trace MR. Tricuspid valve grossly NML, trace TR. Pulmonic | | valve not seen well, trace PI. 4. No Pericardial effusion. 5. IVC not seen well. Est | | systolic PAP 14mmHg+CVP. 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 | |Mitral Valve: There is trace mitral regurgitation. | |Tricuspid Valve: The tricuspid valve appears structurally normal. | |Tricuspid Valve: Trace tricuspid regurgitation present. | |Pulmonic Valve: The pulmonic valve was not well visualized. | |Pulmonic Valve: Trace pulmonic regurgitation. | |Pericardium: There is no pericardial effusion. | |IVC/Hepatic Veins: The IVC was not well visualized. | | | |MEASUREMENTS | | | |LVEF MOD A2C: 56.38 % | |SV MOD A2C: 30.73 ml | |LVEDV MOD A2C: 54.50 ml | |LVLd A2C: 7.73 cm | |LVESV MOD A2C: 23.76 ml | |LVLs A2C: 6.08 cm | | | |Event Manager: DBS | |Authenticated by: Marco Cristina DO | |Report Date/Time: -- [id number] | | | |IMPRESSION: | |1. See Dictation. 2. LV dimensions and systolic function NML, Grade 1 diastolic abnormality , [place] visually estimates LVEF 60-65%. Mild LAE. RA/RV NML. 3. Aortic valve mildly scler otic, no /AI. Mitral valve has | |mild nodular calcification, trace MR. | | Tricuspid valve grossly NML, trace TR. Pulmonic valve not seen well, trace PI. 4. No Per icardial effusion. 5. IVC not seen well. Est systolic PAP 14mmHg+CVP. Atherosclerosis note d in Ascending Aorta. | + + documented in this encounter Visit Diagnoses Not on filedocumented in this encounter"
--- OUTSIDE RECORDS SUMMARY | ~2019-06-05 | XMS | Encounter Summary ---
Demographics + + + | Address | [address] | | | [place] [address] | + + + | Home Phone | | + + + | Preferred Language | Unknown | + + + | Marital Status | | + + + | Mosque Affiliation | Unknown | + + + | Race | Unknown | + + + | Ethnic Group | Unknown | + + + Author + + + | Author | [facility] | | | and [place] | + + + | Organization | [facility] | | | [...] [place] | | | | | [address] | | + + + + + Care Team Providers + +------+ + | Care Operations Vice President Name | Role | Phone | + [...] | | | | | | [place] [address] | [place], [place] | | | | | | Phone: | [address] Phone: | | | | | | [phone] | [phone] | | | | | | Fax: | Fax: | | | | | | [phone] | [phone] | +--------+ + + + + + Diagnostic/Screening (Routine) +--------+--------+ + + + + | Status | Reason | Specialty | Diagnoses / | Referred By | Referred To | | | | | Procedures | Contact | Contact | +--------+--------+ + + + + | Closed | | Radiology | Diagnoses | Lord, | [facility] | | | | | Cancer of | Art Hollwoay DO | [address] | | | | | base of | [address] | [place], | | | | | tongue (HCC) | [address] | [place] | | | | | Procedures | [place], | [address] | | | | | MRI Neck | [place] [address] | Phone: | | | | | Soft Tissue | Phone: | [phone] | | | | | Only w wo | [phone] | Fax: | | | | | Contrast | Fax: | [phone] | | | | | | [phone] | | +--------+--------+ + + + + Encounter Details +--------+ + + + + | Date | Type | Department | Care Team | Description | +--------+ + + + + | 09/27/ | Orders Only | [facility] | Art Red DO | Cancer of base of | | 2014 | | [facility] | [address] | tongue (HCC) | | | | ONCOLOGY [address] | [place], [place] | (Primary Dx) | | | | [place], | [id number] | | | | | [place] [address] | | | | | | [phone] | | | +--------+ + + + [...] | 2019 | | | [address] | | | | | | [place] | | | | | | [address] | | | | | | | | +--------+ + + + + | 03/13/ | Office | Cardiology | Sophie Delacruz, | | | 2019 | Visit | | MD Chivo DIAZ | | | | | | [place] | | | | | | [address] | | | | | | | | +--------+ + + + + + + +--------+ + [...] + + documented as of this encounter Results MRI Neck Soft Tissue Only w wo Contrast (10/08/2014 10:58 AM PDT) + + | Specimen | + + | | + + + + + | Narrative | Performed At | + + + | MRI NECK SOFT TISSUE ONLY W WO CONTRAST 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 Postcontrast images were obtained following IV | | | administration of 10 cc Gadavist contrast. FINDINGS: The | | | visualized intracranial structures at the skull base are unremarkable. 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 There has been interval debulking | | | of the tissue at the posterior aspect of the left side of the tongue | | | extending into the region of the left lingual tonsils, now with an | | | overall symmetric appearance of the volume of the tissues in this | | | region. Note is made of a small, crescentic area of contrast | | | enhancement posteriorly at the left base of the tongue and in the | | | directly adjacent pharyngeal tissue, nonspecific in appearance, | | | possibly representing granulation tissue in the region of surgical | | | resection, versus residual enhancing tumor tissue, best seen axial T1 | | | fat-sat postcontrast image 11. Previously described | | | necrotic-appearing left cervical level II lymph node not well seen on | | | the current study, likely surgically resected, with | | | nonspecific-appearing presumed postsurgical change with mild | | | background contrast enhancement suggestive of granulation tissue. | | | Mild asymmetric contrast enhancement noted in the left submandibular | | | gland as compared with the right, without definite evidence of focal | | | mass, best seen axial vibe T1 fat sat postcontrast image 41-45. No | | | definite pathologically enlarged lymph nodes are evident. Mastoid | | | air cells and middle ear cavities are normally aerated. | | | Bilateral parotid glands appear unremarkable. Thyroid gland is | | | not included on the axial sequences, and is incompletely included on | | | the sagittal and coronal sequences, without suggestion of | | | abnormality. Visualized vascular structures appear within normal | | | limits. The visible bones appear normal. The lung apices and | | | visualized upper mediastinal structures are unremarkable. | | | IMPRESSION - Appearance of interval debulking of tissue at the | | | posterior aspect of the left side of the tongue and the region of the | | | left lingual tonsils, with some contrast enhancement in this region | | | which is nonspecific, possibly representing granulation tissue versus | | | thin area of residual disease. Previously described necrotic | | | appearing left cervical level to lymph node not well seen on the | | | current study, possibly surgically absent. No definite evidence of | | | abnormally enhancing or enlarged cervical lymph nodes in the areas | | | included on the study. Nonspecific change in the soft tissues in the | | | left upper neck, with very mild nonfocal contrast enhancement in this | | | region, most likely postsurgical in nature. 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 Postcontrast images | | were obtained following IV administration of 10 cc Gadavist contrast. | | | | FINDINGS: | | The visualized intracranial structures at the skull base are unremarkable. | | Field inhomogeneity is related to susceptibility change from patient's metallic | | dental work, which hinders evaluation of clinically adjacent structures. | | | | There has been interval debulking of the tissue at the posterior aspect of the | | left side of the tongue extending into the region of the left lingual tonsils, | | now with an overall symmetric appearance of the volume of the tissues in this | | region. Note is made of a small, crescentic area of contrast enhancement | | posteriorly at the left base of the tongue and in the directly adjacent | | pharyngeal tissue, nonspecific in appearance, possibly representing granulation | | tissue in the region of surgical resection, versus residual enhancing tumor | | tissue, best seen axial T1 fat-sat postcontrast image 11. | | | | Previously described necrotic-appearing left cervical level II lymph node not | | well seen on the current study, likely surgically resected, with | | nonspecific-appearing presumed postsurgical change with mild background contrast | | enhancement suggestive of granulation tissue. | | Mild asymmetric contrast enhancement noted in the left submandibular gland as | | compared with the right, without definite evidence of focal mass, best seen | | axial vibe T1 fat sat postcontrast image [id number]. | | No definite pathologically enlarged lymph nodes are evident. | | | | Mastoid air cells and middle ear cavities are normally aerated. | | | | Bilateral parotid glands appear unremarkable. | | | | Thyroid gland is not included on the axial sequences, and is incompletely | | included on the sagittal and coronal sequences, without suggestion of | | abnormality. | | Visualized vascular structures appear within normal limits. | | | | The visible bones appear normal. | | The lung apices and visualized upper mediastinal structures are unremarkable. | | | | IMPRESSION - | | Appearance of interval debulking of tissue at the posterior aspect of the left | | side of the tongue and the region of the left lingual tonsils, with some | | contrast enhancement in this region which is nonspecific, possibly representing | | granulation tissue versus thin area of residual disease. | | Previously described necrotic appearing left cervical level to lymph node not | | well seen on the current study, possibly surgically absent. No definite | | evidence of abnormally enhancing or enlarged cervical lymph nodes in the areas | | included on the study. | | Nonspecific change in the soft tissues in the left upper neck, with very mild | | nonfocal contrast enhancement in this region, most likely postsurgical in | | nature. | | | | Dictated and Signed by: Daniel Saucedo MD | | Electronically signed: 10/08/2014 3:53 PM | + + + +---------+ + + [...]
--- OUTSIDE RECORDS SUMMARY | ~2019-06-05 | XMS | Encounter Summary ---
Demographics + + + | Address | [address] | | | [place] [address] | + + + | Home Phone | | + + + | Preferred Language | Unknown | + + + | Marital Status | | + + + | Taoism Affiliation | Unknown | + + + | Race | Unknown | + + + | Ethnic Group | Unknown | + + + Author + + + | Author | [facility] | | | and [place] | + + + | Organization | [facility] | | | and [place] | + + + | Address | Unknown | + + + | Phone | Unavailable | + + + Support + + + + + | Name | Relationship | Address | Phone | + + + + + | Allie Johnson | [place] | [address] | | | | | [place] | | | | | [address] | | + + + + + Care Team Providers + +------+ + | Care Guide Visitor Name | Role | Phone | + +------+ + | Ruy Chaparro MD | PCP | | + +------+ + Encounter Details +--------+ + + + + | Date | Type | Department | Care Team | Description | +--------+ + + + + | 10/02/ | Abstract | [facility] | [facility] | | | 2014 | | [facility] | MD Jason [address] | | | | | [facility] [address] | | | | | [place] | [place] [address] | | | | | [place] [address] | [phone] | | | | | [phone] | | | +--------+ + + + [...] [place] | | | | | | [id number] | | | | | | | | +--------+ + + + + | 03/13/ | Office | Cardiology | Sophie Delacruz, | | | 2019 | Visit | Rosemarie DIA[facility] | | | | | | [place] | | | | | | [id number] | | | | | | | | +--------+ + + + + documented as of this encounter Visit Diagnoses Not on filedocumented in this encounter"
--- OUTSIDE RECORDS SUMMARY | ~2019-06-05 | XMS | Encounter Summary ---
Demographics + + + | Address | [address] | | | [place] [address] | + + + | Home Phone | | + + + | Preferred Language | Unknown | + + + | Marital Status | | + + + | Sabianist Affiliation | NON | + + + [...] Team Providers + +------+ + | Care Cattle Sprayer Name | Role | Phone | + [...] | | | | | cancer | [address] | [address] | | | | | | Bartolo De | Mailcode: | | | | | | Sarah Gee | [address] | | | | | | [place], [place] | for Health | | | | | | [address] | and Healing, | | | | | | Phone: | [address], | | | | | | [phone] | [address] | | | | | | Fax: | [place], [place] | | | | | | [phone] | [address] | | | | | | | Phone: | | | | | | | [phone] | | | | | | | Fax: | | | | | | | [phone] | +--------+--------+ + + + + Encounter Details +--------+ + + + + | Date | Type | Department | Care Team | Description | +--------+ + + + + | 08/20/ | Diagnostic | Otolaryngology | Steph Trejo, | Medicare | | 2015 | Visit | Speech Therapy | [facility]-INDIRECT SALES EXEC | Certification | | | | Services at [facility] | | | | | | [address] | | | | | | [address] Mailcode: [address] | | | | | | Physician's | | | | | | [facility] [place], | | | | | | [place] [address] | | | | | | [phone] | | | +--------+ + + + [...] of this encounter Progress Notes Steph Trejo CCC-INDIRECT SALES EXEC - 08/20/2014 3:44 PM PDTFormatting of this note might be differen t from the original. Clinic: [facility] Referring Physician: [...] 100, no restriction of place, food, or plumber helper. SOCIAL HISTORY: The patient currently lives in [facility] [place] with his Allie. 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 Velar elevation [...] 100, no restriction of place, food, or plumber helper. PSS -Speech: Always understandable (PSS-Speech 100). [facility] HNQOL Scores*: 100 87.50 100 81.25 [...] manageme nt. We discussed both short and automation controls specialist dysphagia related issues and the role of the INDIRECT SALES EXEC i n both IP and OP rehabilitation. All questions were answered to the best of my ability. The patient and his denied any concerns. ASSESSMENT: The patient demonstrates a good understanding of the implications of surgery for speech and swallowing. Patient is tolerating a regular diet without any clinical s/sx of aspiration. [address] [place] EVAL,ORAL & PHARYNGEAL SWALLOW FUNCTION G8996 PQRI SWALLOW CURRENT STATUS Impairment 1-19 % G8997 PQRI SWALLOW GOAL STATUS Impairment % = 0 PLAN: We will follow-up with the patient after surgery as per our usual protocol. Steph Trejo M.S., [facility] Speech-Language Pathologist [facility] Otolaryngology, Head & Neck Surgery [facility] [place] documented in this e ncounter Plan of Treatment + + +--------+ + + | Name | Type | Priori | Associated Diagnoses | Order Schedule | | | | ty | | | + + +--------+ + + | PQRI SWALLOW CURRENT | Procedures | Routin | Tongue cancer | Ordered: 01/07/2015 | | STATUS | | e | ([facility]LY [facility]) Dysphagia, | | | | | | oropharyngeal | | + + +--------+ + + | PQRI SWALLOW GOAL | Procedures | Routin | Tongue cancer | Ordered: 01/07/2015 | | STATUS | | e | ([facility]) Dysphagia, | | | | | | [...]
--- OUTSIDE RECORDS SUMMARY | ~2019-06-05 | XMS | Encounter Summary ---
Demographics + + + | Address | [address] | | | [place] [address] | + + + | Home Phone | | + + + | Preferred Language | Unknown | + + + | Marital Status | | + + + | Muslim Affiliation | Unknown | + + + | Race | Unknown | + + + | Ethnic Group | Unknown | + + + Author + + + | Author | [facility] | | | and [place] | + + + | Organization | [facility] | | | [...] [place] | | | | | [address] | | + + + + + Care Team Providers + +------+ + | Care Certified Activities Director Name | Role | Phone | + +------+ + | Ruy Chaparro MD | PCP | | + +------+ + Reason for Visit + + + | Reason | Comments | + + + | Initial Assessment | | + + + Evaluate & Treat (Routine) [...] Cancer of | Art Holloway DO | [employer] [address] | | | Required | | base of | [address] | [place] | | | | | tongue (HCC) | [address] | [place], [place] | | | | | [address] | [place], | [address] | | | | | (ICD-9-CM) - | [place] [address] | Phone: | | | | | Cancer of | Phone: | [phone] | | | | | base of | [phone] | Fax: | | | | | tongue (HCC) | Fax: | [phone] | | | | | Procedures | [phone] | | | | | | Speech | | | +--------+ + + + + + Encounter Details +--------+ + + + + | Date | Type | Department | Care Team | Description | +--------+ + + + + | 10/03/ | Hospital | [facility] | Art Red DO | Dysphagia (Primary | | 2015 | Encounter | MED CTR SPEECH | [address] | Dx) | | | | THERAPY [address] | [place], [place] | | | | | [place], | [address] | | | | | [place] [address] | | | | | | [phone] | Michelle Vera | | | | | | M, Speech | | | | | | Pathologist [address] | | | | [address] [place] | | | | | | [place] [address] | | | | | | [phone] | | | | | | | [...] documented as of this encounter Progress Notes Michelle Mcnally, Speech Pathologist - 10/05/2014 10:37 AM PDT [facility] [address] [facility] [address] [facility] Therapy Initial Assessment Date: 10/03/2014 Patient Information Patient Name: Navi Johnson Date of : 1935 Age: 79 y.o. History Encounter Diagnoses Code Name Primary? 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) Cardiovascular disease Hearing loss NC (myocardial infarction) (HCC) 2013 HTN (hypertension) Past Surgical History Procedure Laterality Date Knee surgery Right knee Microlaryngoscopy 08/27/2014 Rigid esosphagoscopy 08/27/14 Pharyngectomy and left parcial glossectomy 08/27/14 Allergies Allergen Reactions Oxycodone Prior treatment: Acute hospital setting - within the last sixty days Rehab Precautions [facility] DENTAL CLAIMS PROCESSOR OP EVAL from 10/03/2014 in [facility] Rehab Precautions Precautions Hearing impairment, Vision impairment Learning Style Patient's Optimum Learning Style: performance of task Abuse Assessment Do you feel safe in your current relationship or home?: Yes Action taken by clinician: No concerns Subjective History of symptoms: Left tongue base squamous cell carcinoma, pain in left side face, no history or c/o dysphagia at this time Pain Assessment Pain Rating During Assessment: 3 Location: upper left face Previous level of function and limitations: Independent Work status: Retired Living situation: With Today's Treatment Patient Name: Navi Johnson/: 1935/ Start Time: 1335 Stop time: 1445 Duration: 70 minutes Timed Treatment Codes: 0 minutes # of Speech Visits to Date: 1 Visit Summary: See clinical impression for more information. Next Visit: Swallow eval of varied textures, diet texture modification and oral motor exerc ise education DENTAL CLAIMS PROCESSOR Treatment DENTAL CLAIMS PROCESSOR Treatment: patient/caregiver education, oral motor exercise, home program instruction, compensatory strategies Patient/Caregiver Education Learner: Patient Readiness: Eager Method: Explanation, Demonstration, Handout Response: Verbalizes Understanding, Demonstrated Understanding Speech Home Exercises Speech Home Exercises: Home Ex #1 Home Exercise #1: Lateral and ant/pot jaw exercises, and lingual exercises during radiation treatment to maintain ability to chew/swallow and speak. Home Exercise Duration #1: 10 reps each Home Exercise Reps #1: daily Assessment Clinical Impression: Pt is accompanied by his to the initial speech and swallow evalua tion. 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 On August 27 patient underwent suspension microlaryngoscopy, rigid esophagoscopy, and then transoral robotic resection of a left tongue and pharynx lesion and then an elective left ne ck dissection of levels 2 through 4. Pathologic investigation revealed involvement of 1 cerv ical lymph node, and was incompletely resected. 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 Post operatively Pt has been seen by a speech therapist at [facility] who taught the use of compe nsatory strategies such as head tilt left with chin tuck combination. Pt reported that this has helped him swallow as he feels like "things just get stuck over there." Pt experiences s ignificant pain that radiates from left ear to upper left quadrant of face and mucous build up in pharynx. Pt had an MBS done previously. He reported that his eating has largely been u naffected at this time, though items that are chewy, or crunchy take a lot longer to eat. He reports no diet texture restrictions at this time. No history of dysphagia prior to surgery . Oral motor exam revealed mild asymmetry on lower quadrant of L face most noticeable during smile/ pucker. Speech and labial are unaffected by this evidence of facial nerve damage. Ora l motor exam revealed the following: Jaw: Moderate strength, ROM WNL. Lingual: Moderate stre ngth, ROM WNL. Buccal: strength WNL. Pt reported no sensory disturbance in oral cavity. Uvul a moves on phonation by was malformed and asymmetrically positioned, mucosa appeared WNL. Bu lk of session was in providing education via explanation and handouts so patient and his wif e know what can occur during the treatment process that changes the ability to eat and drink . DENTAL CLAIMS PROCESSOR prescribed a series of individually tailored oral motor exercises for the Pt to perfor m as able during radiation treatment to maintain ROM and strength of jaw, and tongue to assi st with eating and speech. DENTAL CLAIMS PROCESSOR will see Pt back in two week's time to monitor for tolerance to diet, update on oral motor exercise, and provide education and support. DENTAL CLAIMS PROCESSOR spoke with sylvia bangura to alert her for possible needs to follow this patient. Rehabilitation potential: Patient demonstrates good potential to achieve established goals to address the documented impairments by participating in skilled speech and language therap y services. Outcome Specific Scored Goals Primary Functional Goals: Functional Goal 1 Patient's Primary Functional Goal 1: Pt will use strategies taught and diettexture modifica tion in order for him to sustain his needs and eat safely Primary Functional Goal 1 Status Comment: New Patient Caregiver's Ability to Manage Condition: 4 Goal Motor Speech Motor Speech STG Status: New STG Motor Speech: Pt will demonstrate adequate ROM of jaw and lingual structures after perf orming oral motor exercises daily as prescribed during radiation treatment to maintain abili ty to chew and speak. Medicare Functional Limitation Reporting G Code Severity Modifier Current Status G8996 Swallowing functional limitation, current status at time of initial th erapy treatment/episode outset and reporting intervals CI At least 1 percent but less than 2 0 percent impaired, limited or restricted Goal G8997 Swallowing functional limitation, projected goal status CH 0 percent impaired, l imited or restricted Outcome Measures Tools: TERRA NOMs Justification of Severity Rating: Pt is approx 5-10% impaired with swallowing. He has not started radiation for head and neck cancer yet, but since his partial glossectomy, and phary ngectomy he consistently uses compensatory strategies such as a chin tuck, head tilt combina tion as "the food gets stuck" otherwise. Pt needs continued speech therapy to monitor for co mpliance with prescribed oral motor exercises and provide education on diet texture modifica tion as he undergoes radiation to his head and neck. Plan Date of Onset: 08/27/14 Start of Care Date: 10/03/14 Requested # of Visits: 8 1x/every other wk for 3 months Certification From: 10/03/14 Certification To: 01/03/15 Treatment Plan/Interventions: 25372 Swallow Evaluation Patient education, oral motor exerices, compensatory strategies, and diet texture modificat ion Referrals Referrals: Nutrition Services, Occupational Therapy Patient and/or family has indicated understanding of treatment needs and actively participa lily in the creation of this plan for care. Electronically signed by: Michelle Mcnally SPEECH PATHO, 10/05/2014 10:37 Patient Name: Navi Johnson/: 1935/ documented in this encounter Plan of Treatment +--------+ + + + + | Date | Type | Specialty | Care Team | Description | +--------+ + + + + | 12/10/ | Appointment | Radiation Oncology | Art Red DO | | | 2019 | | | [address] | | | | | | [place] | | | | | | [id number] | | | | | | | | +--------+ + + + + | 03/13/ | Office | Cardiology | Sophie Delacruz, | | | 2019 | Visit | | MD [address] | | | | | | [place] | | | | | | [address] | | | | | | | | +--------+ + + + + documented as of this encounter Visit Diagnoses + + | Diagnosis | + + | Dysphagia - Primary Dysphagia, unspecified | + + documented in this encounter
--- OUTSIDE RECORDS SUMMARY | ~2019-06-05 | XMS | Encounter Summary ---
Demographics + + + | Address | [address] | | | [place] [address] | + + + | Home Phone | | + + + | Preferred Language | Unknown | + + + | Marital Status | | + + + | Worship Affiliation | Unknown | + + + | Race | Unknown | + + + | Ethnic Group | Unknown | + + + Author + + + | Author | [facility] | | | and [place] | + + + | Organization | [facility] | | | [...] [place] | | | | | [address] | | + + + + + Care Team Providers + +------+ + | Care Carpenter General Name | Role | Phone | + +------+ + | Angel Lynch DO | PCP | | + +------+ + Reason for Visit Evaluate & Treat (Routine) +--------+ + + [...] | Pathology | Cancer of | Art DO Amie | Management Professional [address] | | | Required | | base of | [address] | [place] | | | | | tongue (HCC) | [address] | [place], [place] | | | | | [address] | [place], | [address] | | | | | (ICD-9-CM) - | [place] [address] | Phone: | | | | | Cancer of | Phone: | [phone] | | | | | base of | [phone] | Fax: | | | | | tongue (HCC) | Fax: | [phone] | | | | | Procedures | [phone] | | | | | | Speech | | | +--------+ + + + + + Encounter Details +--------+ + + + + | Date | Type | Department | Care Team | Description | +--------+ + + + + | 12/03/ | Hospital | [facility] | Ruy Chaparro | Dysphagia (Primary | | 2015 | Encounter | MED CTR SPEECH | MD [address] | Dx) | | | | THERAPY [address] | [address] [place] | | | | | [place], | [place] [address] | | | | | [place] [address] | [phone] | | | | | [phone] | | | | | | | Michelel Vera | | | | | | M, Speech | | | | | | Pathologist [address] | | | | [address] [place] | | | | | | [place] [address] | | | | | | [phone] | | | | | | | | | | | | Dalila Sadler, | | | | | | Speech Pathologist | | +--------+ + + + + [...] Comments | + + +---------+ + | Never | | | | + + +---------+ + + + + + | Alcohol Habits | Answer | Date Recorded | + + + + | How often do you have a drink containing | Never | 03/22/2019 | | alcohol? | | | + + + + | How many drinks containing alcohol do you | Not asked | | | have on a typical day when you are | | | | drinking? | | | + + + + | How often do you have six or more drinks on | Not asked | | | one occasion? | | | + + + + + + + | Sex Assigned [...] [place] | | | | | | [address] | | | | | | | | +--------+ + + + + | 03/13/ | Office | Cardiology | Sophie Delacruz, | | | 2019 | Visit | | MD [address] | | | | | | [place] | | | | | | [address] | | | | | | | | +--------+ + + + + documented as of this encounter Visit Diagnoses + + | Diagnosis | + + | Dysphagia - Primary Dysphagia, unspecified | + + documented in this encounter"
--- OUTSIDE RECORDS SUMMARY | ~2019-06-05 | XMS | Encounter Summary ---
Demographics + + + | Address | [address] | | | [place] [address] | + + + | Home Phone | | + + + | Preferred Language | Unknown | + + + | Marital Status | | + + + | Alevism Affiliation | NON | + + + | Race | White | + + + | Ethnic Group | Not or | + + + Author + + + | Author | [facility] | + + + | Organization | [facility] | + + + | Address | Unknown | + + + | Phone | Unavailable | + + + Support + + +---------+ + | Name | Relationship | Address | Phone | + + +---------+ + | Kofia Alex | ECON | Unknown | | + + +---------+ + Care Team Providers + +------+ + | Care Eyeglass Frame Truer Name | Role | Phone | + +------+ + | Cong Freeman MD | PCP | | + +------+ + Reason for Visit + + + | Reason | Comments | + + + | Medication Question | | + + + Encounter Details +--------+ + + + + | Date | Type | Department | Care Team | Description | +--------+ + + + + | 09/01/ | Telephone | Otolaryngology | Luc Stephen, | Medication Question | | 2014 | | Pediatrics Services | | | | | | at [facility] [address] | | | | | | [address] | | | | | | Mailcode: [id number] | | | | | | [address] | | | | | | [place], [place] | | | | | | [address] | | | | | | [phone] | | | +--------+ + + + [...]
--- OUTSIDE RECORDS SUMMARY | ~2019-06-05 | XMS | Encounter Summary ---
Demographics + + + | Address | [address] | | | [place] [address] | + + + | Home Phone | | + + + | Preferred Language | Unknown | + + + | Marital Status | | + + + | Judaism Affiliation | NON | + + + | Race | White | + + + | Ethnic Group | Not or | + + + Author + + + | Author | [facility] | + + + | Organization | [facility] | + + + | Address | Unknown | + + + | Phone | Unavailable | + + + Support + + +---------+ + | Name | Relationship | Address | Phone | + + +---------+ + | Kofia Alex | ECON | Unknown | | + + +---------+ + Care Team Providers + +------+ + | Care Painting Contractor Name | Role | Phone | + [...] Pharmacy | | | | | | [address] | | | | | | [address] [place], [place] | | | | | | [address] | | | | | | [phone] | | | +--------+ + + + [...]
--- OUTSIDE RECORDS SUMMARY | ~2019-06-05 | XMS | Encounter Summary ---
Demographics + + + | Address | [address] | | | [place] [address] | + + + | Home Phone | | + + + | Preferred Language | Unknown | + + + | Marital Status | | + + + | Mandaen Affiliation | Unknown | + + + | Race | Unknown | + + + | Ethnic Group | Unknown | + + + Author + + + | Author | [facility] | | | and [place] | + + + | Organization | [facility] | | [...] [place] | | | | | [id number] | | + + + + + Care Team Providers + +------+ + | Care Regulatory Process Manager Name | Role | Phone | + +------+ + | Angel Lynch DO | PCP | | + +------+ + Encounter Details +--------+ + + + + | Date | Type | Department | Care Team | Description | +--------+ + + + + | 01/21/ | Orders Only | [facility] | Asad Smith MD | | | 2014 | | NEPHROLOGY [place] | [address] [place] | | | | | [address] [place] | [address] [place], [place] | | | | | [address] [place], [place] | [address] | | | | | [address] | | | | | | [phone] | | | +--------+ + + + [...] [place] | | | | | | [address] | | | | | | | | +--------+ + + + + | 03/13/ | Office | Cardiology | Sophie Delacruz, | | | 2019 | Visit | | MD [place] | | | | | | [place] | | | | | | [phone] | | | | | | | | +--------+ + + + + documented as of this encounter Procedures + +--------+ + + + | Procedure Name | Priori | Date/Time | Associated Diagnosis | Comments | | | ty | | | | + +--------+ + + + | EXTERNAL LAB: CBC | Routin | 06/20/2014 | | Results for this | | | e | 12:00 AM | | procedure are in the | | | | PST | | results section. | + +--------+ + + + | URINALYSIS WITH | Routin | 06/20/2014 | | Results for this | | MICROSCOPIC WITH | e | 12:00 AM | | procedure are in the | | CULTURE IF INDICATED | | PST | | results section. | + +--------+ + + + | PROTEIN/CREATININE | Routin | 06/20/2014 | | Results for this | | RATIO, URINE | e | 12:00 AM | | procedure are in the | | | | PST | | results section. | + +--------+ + + + | PROTEIN, URINE, | Routin | 06/20/2014 | | Results for this | | RANDOM | e | 12:00 AM | | procedure are in the | | | | PST | | results section. | + +--------+ + + + | CREATININE, URINE, | Routin | 06/20/2014 | | Results for this | | RANDOM | e | 12:00 AM | | procedure are in the | | | | PST | | results section. | + +--------+ + + + | URIC ACID | Routin | 06/20/2014 | | Results for this | | | e | 12:00 AM | | procedure are in the | | | | PST | | results section. | + +--------+ + + + | MAGNESIUM | Routin | 06/20/2014 | | Results for this | | | e | 12:00 AM | | procedure are in the | | | | PST | | results section. | + +--------+ + + + | RENAL FUNCTION PANEL | Routin | 06/20/2014 | | Results for this | | | e | 12:00 AM | | procedure are in the | | | | PST | | results section. | + +--------+ + + + | EXTERNAL LAB: CBC | Routin | 11/22/2013 | | Results for this | | | e | 12:00 AM | | procedure are in the | | | | PDT | | results section. | + +--------+ + + + | IRON AND IRON | Routin | 11/22/2013 | | Results for this | | BINDING CAPACITY | e | 12:00 AM | | procedure are in the | | | | PDT | | results section. | + +--------+ + + + | URINALYSIS WITH | Routin | 11/22/2013 | | Results for this | | MICROSCOPIC WITH | e | 12:00 AM | | procedure are in the | | CULTURE IF INDICATED | | PDT | | results section. | + +--------+ + + + | PARATHYROID HORMONE, | Routin | 11/22/2013 | | Results for this | | INTACT AND CALCIUM | e | 12:00 AM | | procedure are in the | | | | PDT | | results section. | + +--------+ + + + | MICROALBUMIN/CREATIN | Routin | 11/22/2013 | | Results for this | | INE RATIO, URINE | e | 12:00 AM | | procedure are in the | | TEST | | PDT | | results section. | + +--------+ + + + | CULTURE, URINE | Routin | 11/22/2013 | | Results for this | | | e | 12:00 AM | | procedure are in the | | | | PDT | | results section. | + +--------+ + + + | URIC ACID | Routin | 11/22/2013 | | Results for this | | | e | 12:00 AM | | procedure are in the | | | | PDT | | results section. | + +--------+ + + + | TRANSFERRIN | Routin | 11/22/2013 | | Results for this | | | e | 12:00 AM | | procedure are in the | | | | PDT | | results section. | + +--------+ + + + | MAGNESIUM | Routin | 11/22/2013 | | Results for this | | | e | 12:00 AM | | procedure are in the | | | | PDT | | results section. | + +--------+ + + + | FERRITIN | Routin | 11/22/2013 | | Results for this | | | e | 12:00 AM | | procedure are in the | | | | PDT | | results section. | + +--------+ + + + | RENAL FUNCTION PANEL | Routin | 11/22/2013 | | Results for this | | | e | 12:00 AM | | procedure are in the | | | | PDT | | results section. | + +--------+ + + + | CULTURE, URINE | Routin | 05/08/2013 | | Results for this | | | e | 12:00 AM | | procedure are in the | | | | PST | | results section. | + +--------+ + + + | CULTURE, URINE | Routin | 02/21/2013 | | Results for this | | | e | 12:00 AM | | procedure are in the | | | | PDT | | results section. | + +--------+ + + + | CULTURE, URINE | Routin | 02/21/2013 | | Results for this | | | e | 12:00 AM | | procedure are in the | | | | PDT | | results section. | + +--------+ + + + | CULTURE, URINE | Routin | 02/21/2013 | | Results for this | | | e | 12:00 AM | | procedure are in the | | | | PDT | | results section. | + +--------+ + + + documented in this encounter Results Urinalysis with Microscopic with Culture if Indicated (06/20/2014 12:00 AM PST) + + + + + + | Component | Value | Ref Range | Performed | Pathologist | | | | | At | Signature | + + + + + + | Color | Yellow | | EXTERNAL | | | | | | LAB | | + + + + + + | Clarity | Clear | | EXTERNAL | | | | | | LAB | | + + + + + + | Spec Grav, | 1.015 | 1.005 - 1.030 | EXTERNAL | | | Fluid | | | LAB | | + + + + + + | Leukocyte | Negative | | EXTERNAL | | | Esterase, | | | LAB | | | Urine | | | | | + + + + + + | Nitrite, | Negative | | EXTERNAL | | | Urine | | | LAB | | + + + + + + | Urobilinoge | Normal | | EXTERNAL | | | n, Urine | | | LAB | | + + + + + + | Total | Negative | | EXTERNAL | | | Protein | | | LAB | | + + + + + + | pH, Urine | 6 | 5 - 9 | EXTERNAL | | | | | | LAB | | + + + + + + | Blood, | Negative | | EXTERNAL | | | Urine | | | LAB | | + + + + + + | Ketones | Negative | | EXTERNAL | | | | | | LAB | | + + + + + + | Bilirubin, | Negative | | EXTERNAL | | | Urine | | | LAB | | + + + + + + | Glucose, | Negative | | EXTERNAL | | | Urine | | | LAB | | + + + + + + | WBC, UA | | | EXTERNAL | | | | | | LAB | | + + + + + + | RBC, UA | | | EXTERNAL | | | | | | LAB | | + + + + + + | Epithelial | | | EXTERNAL | | | Cells | | | LAB | | + + + + + + | Bacteria, | | | EXTERNAL | | | UA | | | LAB | | + + + + + + | HYALINE | | | EXTERNAL | | | CASTS UA | | | LAB | | + + + + + + + + | Specimen | + + | | + + + +---------+ + + | Performing | Address | City/State/Zipcode | Phone Number | | Organization | | | | + +---------+ + + | EXTERNAL LAB | | | | + +---------+ + + Protein/Creatinine Ratio, Urine (06/20/2014 12:00 AM PST) + +-------+ + + + | Component | Value | Ref Range | Performed | Pathologist | | | | | At | Signature | + +-------+ + + + | Protein/Cre | 132.8 | 0 - 150 | EXTERNAL | | | at Ratio | | | LAB | | + +-------+ + + + + + | Specimen | + + | Urine specimen | | (specimen) | + + + +---------+ + + | Performing | Address | City/State/Zipcode | Phone Number | | Organization | | | | + +---------+ + + | EXTERNAL LAB | | | | + +---------+ + + Protein, Urine, Random (06/20/2014 12:00 AM PST) + +-------+ + + + | Component | Value | Ref Range | Performed | Pathologist | | | | | At | Signature | + +-------+ + + + | Protein, | 17 | 0.0 - 50.0 | EXTERNAL | | | Urine | | | LAB | | + +-------+ + + + + + | Specimen | + + | Urine specimen | | (specimen) | + + + +---------+ + + | Performing | Address | City/State/Zipcode | Phone Number | | Organization | | | | + +---------+ + + | EXTERNAL LAB | | | | + +---------+ + + Creatinine, Urine, Random (06/20/2014 12:00 AM PST) + +-------+ + + + | Component | Value | Ref Range | Performed | Pathologist | | | | | At | Signature | + +-------+ + + + | Creatinine, | 128 | | EXTERNAL | | | 24H Ur | | | LAB | | + +-------+ + + + + + | Specimen | + + | Urine specimen | | (specimen) | + + + +---------+ + + | Performing | Address | City/State/Zipcode | Phone Number | | Organization | | | | + +---------+ + + | EXTERNAL LAB | | | | + +---------+ + + External Lab: CBC (06/20/2014 12:00 AM PST) + + + + + + | Component | Value | Ref Range | Performed | Pathologist | | | | | At | Signature | + + + + + + | WBC | 6.8 | 4.5 - 11.0 10 | EXTERNAL | | | | | | LAB | | + + + + + + | RED CELL | 4.24 (A) | 4.3 - 5.7 10 | EXTERNAL | | | COUNT | | | LAB | | + + + + + + | Hgb | 13.4 (A) | 13.5 - 18.0 | EXTERNAL | | | | | g/dL | LAB | | + + + + + + | Hematocrit, | 40.4 (A) | 41 - 50 % | EXTERNAL | | | POC | | | LAB | | + + + + + + | MCV | 95.2 | 81 - 99 fL | EXTERNAL | | | | | | LAB | | + + + + + + | MCH | 32 | 27 - 33 pg | EXTERNAL | | | | | | LAB | | + + + + + + | MCHC | 33 | 30 - 36 g/dL | EXTERNAL | | | | | | LAB | | + + + + + + | Platelet | 176 | 140 - 440 K/ L | EXTERNAL | | | Count | | | LAB | | | Plasma | | | | | + + + + + + | RDW-CV | 14.3 | 10.5 - 15.0 % | EXTERNAL | | | | | | LAB | | + + + + + + | MPV | | fL | EXTERNAL | | | | | | LAB | | + + + + + + | Differentia | Auto | | EXTERNAL | | | l Type | | | LAB | | + + + + + + | % Segmented | 67.1 | 39 - 80 % | EXTERNAL | | | | | | LAB | | | Neutrophils | | | | | + + + + + + | % | 19.1 (A) | 24 - 44 % | EXTERNAL | | | Lymphocytes | | | LAB | | + + + + + + | % Monocytes | 9.5 | 0 - 12 % | EXTERNAL | | | | | | LAB | | + + + + + + | % | 3.6 | 0 - 6 % | EXTERNAL | | | Eosinophils | | | LAB | | + + + + + + | % Basophils | 0.7 | 0 - 2 % | EXTERNAL | | | | | | LAB | | + + + + + + | Absolute | | / L | EXTERNAL | | | Segmented | | | LAB | | | Neutrophils | | | | | + + + + + + | Absolute | | / L | EXTERNAL | | | Lymphocytes | | | LAB | | + + + + + + | Absolute | | / L | EXTERNAL | | | Monocytes | | | LAB | | + + + + + + | Absolute | | / L | EXTERNAL | | | Eosinophils | | | LAB | | + + + + + + | Absolute | | / L | EXTERNAL | | | Basophils | | | LAB | | + + + + + + + + | Specimen | + + | Blood specimen | | (specimen) | + + + +---------+ + + | Performing | Address | City/State/Zipcode | Phone Number | | Organization | | | | + +---------+ + + | EXTERNAL LAB | | | | + +---------+ + + Uric Acid (06/20/2014 12:00 AM PST) + +-------+ + + + | Component | Value | Ref Range | Performed | Pathologist | | | | | At | Signature | + +-------+ + + + | Uric Acid | 4.8 | 4.4 - 7.6 | EXTERNAL | | | | | | LAB | | + +-------+ + + + + + | Specimen | + + | Blood specimen | | (specimen) | + + + +---------+ + + | Performing | Address | City/State/Zipcode | Phone Number | | Organization | | | | + +---------+ + + | EXTERNAL LAB | | | | + +---------+ + + Magnesium (06/20/2014 12:00 AM PST) + +-------+ + + + | Component | Value | Ref Range | Performed | Pathologist | | | | | At | Signature | + +-------+ + + + | Magnesium | 1.8 | 1.7 - 2.5 mg/dL | EXTERNAL | | | | | | LAB | | + +-------+ + + + + + | Specimen | + + | Blood specimen | | (specimen) | + + + +---------+ + + | Performing | Address | City/State/Zipcode | Phone Number | | Organization | | | | + +---------+ + + | EXTERNAL LAB | | | | + +---------+ + + Renal Function Panel (06/20/2014 12:00 AM PST) + + + + + + | Component | Value | Ref Range | Performed | Pathologist | | | | | At | Signature | + + + + + + | Glucose, | 128 (A) | 70 - 100 mg/dL | EXTERNAL | | | Fasting | | | LAB | | + + + + + + | BUN | 25 (A) | 6 - 23 mg/dL | EXTERNAL | | | | | | LAB | | + + + + + + | Creatinine | 1.59 (A) | 0.70 - 1.11 | EXTERNAL | | | | | mg/dL | LAB | | + + + + + + | PHOSPHORUS | | mg/dL | EXTERNAL | | | | | | LAB | | + + + + + + | Albumin | 4.0 | 3.5 - 5.0 | EXTERNAL | | | | | | LAB | | + + + + + + | Na | 141 | 132 - 143 | EXTERNAL | | | | | mmol/L | LAB | | + + + + + + | K | 4.8 | 3.6 - 5.1 | EXTERNAL | | | | | mmol/L | LAB | | + + + + + + | Cl | 107 | 95 - 112 mmol/L | EXTERNAL | | | | | | LAB | | + + + + + + | CO2 | 27 | 19 - 31 mmol/L | EXTERNAL | | | | | | LAB | | + + + + + + | Anion Gap | 11.8 | 7 - 21 mmol/L | EXTERNAL | | | | | | LAB | | + + + + + + | eGFR if not | | | EXTERNAL | | | | | | LAB | | | TRINIDADIAN | | | | | + + + + + + | Phosphorus, | 3.0 | 2.5 - 5.0 | EXTERNAL | | | Inorganic | | | LAB | | + + + + + + | BUN/Creatin | 15.7 | 6.0 - 28.6 | EXTERNAL | | | ine Ratio | | | LAB | | + + + + + + | Calcium | 8.9 | 8.4 - 10.2 | EXTERNAL | | | | | mg/dL | LAB | | + + + + + + | Estimated | 42 | mg/dL | EXTERNAL | | | GFR | | | LAB | | + + + + + + + + | Specimen | + + | Blood specimen | | (specimen) | + + + +---------+ + + | Performing | Address | City/State/Zipcode | Phone Number | | Organization | | | | + +---------+ + + | EXTERNAL LAB | | | | + +---------+ + + Urinalysis with Microscopic with Culture if Indicated (11/22/2013 12:00 AM PDT) + + + + + + | Component | Value | Ref Range | Performed | Pathologist | | | | | At | Signature | + + + + + + | Color | Yellow | | EXTERNAL | | | | | | LAB | | + + + + + + | Clarity | Clear | | EXTERNAL | | | | | | LAB | | + + + + + + | Spec Grav, | 1.017 | | EXTERNAL | | | Fluid | | | LAB | | + + + + + + | Leukocyte | 1+Comment: 100 | | EXTERNAL | | | Esterase, | | | LAB | | | Urine | | | | | + + + + + + | Nitrite, | 1+ | | EXTERNAL | | | Urine | | | LAB | | + + + + + + | Urobilinoge | Normal | | EXTERNAL | | | n, Urine | | | LAB | | + + + + + + | Total | Negative | | EXTERNAL | | | Protein | | | LAB | | + + + + + + | pH, Urine | 5 | | EXTERNAL | | | | | | LAB | | + + + + + + | Blood, | Negative | | EXTERNAL | | | Urine | | | LAB | | + + + + + + | Ketones | Negative | | EXTERNAL | | | | | | LAB | | + + + + + + | Bilirubin, | Negative | | EXTERNAL | | | Urine | | | LAB | | + + + + + + | Glucose, | Negative | | EXTERNAL | | | Urine | | | LAB | | + + + + + + | WBC, UA | | | EXTERNAL | | | | | | LAB | | + + + + + + | RBC, UA | | | EXTERNAL | | | | | | LAB | | + + + + + + | Epithelial | | | EXTERNAL | | | Cells | | | LAB | | + + + + + + | Bacteria, | | | EXTERNAL | | | UA | | | LAB | | + + + + + + | HYALINE | | | EXTERNAL | | | CASTS UA | | | LAB | | + + + + + + + + | Specimen | + + | | + + + +---------+ + + | Performing | Address | City/State/Zipcode | Phone Number | | Organization | | | | + +---------+ + + | EXTERNAL LAB | | | | + +---------+ + + Iron and Iron Binding Capacity (11/22/2013 12:00 AM PDT) + +-------+ + + + | Component | Value | Ref Range | Performed | Pathologist | | | | | At | Signature | + +-------+ + + + | Iron | 79 | | EXTERNAL | | | | | | LAB | | + +-------+ + + + | Iron | 24.8 | | EXTERNAL | | | Saturation | | | LAB | | + +-------+ + + + | TIBC | 318 | | EXTERNAL | | | | | | LAB | | + +-------+ + + + + + | Specimen | + + | Blood specimen | | (specimen) | + + + +---------+ + + | Performing | Address | City/State/Zipcode | Phone Number | | Organization | | | | + +---------+ + + | EXTERNAL LAB | | | | + +---------+ + + Parathyroid Hormone, Intact and Calcium (11/22/2013 12:00 AM PDT) + +-------+ + + + | Component | Value | Ref Range | Performed | Pathologist | | | | | At | Signature | + +-------+ + + + | PTH Intact | 60.25 | | EXTERNAL | | | | | | LAB | | + +-------+ + + + | Calcium | 9.0 | | EXTERNAL | | | | | | LAB | | + +-------+ + + + + + | Specimen | + + | Blood specimen | | (specimen) | + + + +---------+ + + | Performing | Address | City/State/Zipcode | Phone Number | | Organization | | | | + +---------+ + + | EXTERNAL LAB | | | | + +---------+ + + Microalbumin/Creatinine Ratio, Urine (11/22/2013 12:00 AM PDT) + +-------+ + + + | Component | Value | Ref Range | Performed | Pathologist | | | | | At | Signature | + +-------+ + + + | ALBUMIN/CRE | 7.2 | | EXTERNAL | | | ATININE | | | LAB | | | RATIO.URINE | | | | | | .ORD.MG/G | | | | | | (RADHA) | | | | | | | | | | | | | | | | | + +-------+ + + + + + | Specimen | + + | Urine specimen | | (specimen) | + + + +---------+ + + | Performing | Address | City/State/Zipcode | Phone Number | | Organization | | | | + +---------+ + + | EXTERNAL LAB | | | | + +---------+ + + External Lab: CBC (11/22/2013 12:00 AM PDT) + +-------+ + + + | Component | Value | Ref Range | Performed | Pathologist | | | | | At | Signature | + +-------+ + + + | WBC | 7.9 | 10 | EXTERNAL | | | | | | LAB | | + +-------+ + + + | RED CELL | 4.12 | 10 | EXTERNAL | | | COUNT | | | LAB | | + +-------+ + + + | Hgb | 13.0 | g/dL | EXTERNAL | | | | | | LAB | | + +-------+ + + + | Hematocrit, | 39.1 | % | EXTERNAL | | | POC | | | LAB | | + +-------+ + + + | MCV | 94.9 | fL | EXTERNAL | | | | | | LAB | | + +-------+ + + + | MCH | 32 | pg | EXTERNAL | | | | | | LAB | | + +-------+ + + + | MCHC | 33 | g/dL | EXTERNAL | | | | | | LAB | | + +-------+ + + + | Platelet | 178 | K/ L | EXTERNAL | | | Count | | | LAB | | | Plasma | | | | | + +-------+ + + + | RDW-CV | 14.1 | % | EXTERNAL | | | | | | LAB | | + +-------+ + + + | MPV | | fL | EXTERNAL | | | | | | LAB | | + +-------+ + + + | Differentia | Auto | | EXTERNAL | | | l Type | | | LAB | | + +-------+ + + + | % Segmented | 75.5 | % | EXTERNAL | | | | | | LAB | | | Neutrophils | | | | | + +-------+ + + + | % | 12.1 | % | EXTERNAL | | | Lymphocytes | | | LAB | | + +-------+ + + + | % Monocytes | 8.7 | % | EXTERNAL | | | | | | LAB | | + +-------+ + + + | % | 3.1 | % | EXTERNAL | | | Eosinophils | | | LAB | | + +-------+ + + + | % Basophils | 0.6 | % | EXTERNAL | | | | | | LAB | | + +-------+ + + + | Absolute | | / L | EXTERNAL | | | Segmented | | | LAB | | | Neutrophils | | | | | + +-------+ + + + | Absolute | | / L | EXTERNAL | | | Lymphocytes | | | LAB | | + +-------+ + + + | Absolute | | / L | EXTERNAL | | | Monocytes | | | LAB | | + +-------+ + + + | Absolute | | / L | EXTERNAL | | | Eosinophils | | | LAB | | + +-------+ + + + | Absolute | | / L | EXTERNAL | | | Basophils | | | LAB | | + +-------+ + + + + + | Specimen | + + | Blood specimen | | (specimen) | + + + +---------+ + + | Performing | Address | City/State/Zipcode | Phone Number | | Organization | | | | + +---------+ + + | EXTERNAL LAB | | | | + +---------+ + + Uric Acid (11/22/2013 12:00 AM PDT) + +-------+ + + + | Component | Value | Ref Range | Performed | Pathologist | | | | | At | Signature | + +-------+ + + + | Uric Acid | 5.3 | | EXTERNAL | | | | | | LAB | | + +-------+ + + + + + | Specimen | + + | Blood specimen | | (specimen) | + + + +---------+ + + | Performing | Address | City/State/Zipcode | Phone Number | | Organization | | | | + +---------+ + + | EXTERNAL LAB | | | | + +---------+ + + Transferrin (11/22/2013 12:00 AM PDT) + +-------+ + + + | Component | Value | Ref Range | Performed | Pathologist | | | | | At | Signature | + +-------+ + + + | TRANSFERRIN | 227 | | EXTERNAL | | | | | | LAB | | + +-------+ + + + + + | Specimen | + + | Blood specimen | | (specimen) | + + + +---------+ + + | Performing | Address | City/State/Zipcode | Phone Number | | Organization | | | | + +---------+ + + | EXTERNAL LAB | | | | + +---------+ + + Magnesium (11/22/2013 12:00 AM PDT) + +-------+ + + + | Component | Value | Ref Range | Performed | Pathologist | | | | | At | Signature | + +-------+ + + + | Magnesium | 1.7 | mg/dL | EXTERNAL | | | | | | LAB | | + +-------+ + + + + + | Specimen | + + | Blood specimen | | (specimen) | + + + +---------+ + + | Performing | Address | City/State/Zipcode | Phone Number | | Organization | | | | + +---------+ + + | EXTERNAL LAB | | | | + +---------+ + + Ferritin (11/22/2013 12:00 AM PDT) + +-------+ + + + | Component | Value | Ref Range | Performed | Pathologist | | | | | At | Signature | + +-------+ + + + | Ferritin, | 148.7 | ng/mL | EXTERNAL | | | External | | | LAB | | + +-------+ + + + + + | Specimen | + + | Blood specimen | | (specimen) | + + + +---------+ + + | Performing | Address | City/State/Zipcode | Phone Number | | Organization | | | | + +---------+ + + | EXTERNAL LAB | | | | + +---------+ + + Renal Function Panel (11/22/2013 12:00 AM PDT) + +-------+ + + + | Component | Value | Ref Range | Performed | Pathologist | | | | | At | Signature | + +-------+ + + + | Glucose, | 125 | mg/dL | EXTERNAL | | | Fasting | | | LAB | | + +-------+ + + + | BUN | 26 | mg/dL | EXTERNAL | | | | | | LAB | | + +-------+ + + + | Creatinine | 1.58 | mg/dL | EXTERNAL | | | | | | LAB | | + +-------+ + + + | PHOSPHORUS | | mg/dL | EXTERNAL | | | | | | LAB | | + +-------+ + + + | Albumin | 3.8 | | EXTERNAL | | | | | | LAB | | + +-------+ + + + | Na | 141 | mmol/L | EXTERNAL | | | | | | LAB | | + +-------+ + + + | K | 4.3 | mmol/L | EXTERNAL | | | | | | LAB | | + +-------+ + + + | Cl | 109 | mmol/L | EXTERNAL | | | | | | LAB | | + +-------+ + + + | CO2 | 23 | mmol/L | EXTERNAL | | | | | | LAB | | + +-------+ + + + | Anion Gap | 13.3 | mmol/L | EXTERNAL | | | | | | LAB | | + +-------+ + + + | eGFR if not | | | EXTERNAL | | | | | | LAB | | | TRINIDADIAN | | | | | + +-------+ + + + | Phosphorus, | 3.0 | | EXTERNAL | | | Inorganic | | | LAB | | + +-------+ + + + | BUN/Creatin | 16.5 | | EXTERNAL | | | ine Ratio | | | LAB | | + +-------+ + + + | Calcium | 9.0 | mg/dL | EXTERNAL | | | | | | LAB | | + +-------+ + + + | Estimated | 43 | mg/dL | EXTERNAL | | | GFR | | | LAB | | + +-------+ + + + + + | Specimen | + + | Blood specimen | | (specimen) | + + + +---------+ + + | Performing | Address | City/State/Zipcode | Phone Number | | Organization | | | | + +---------+ + + | EXTERNAL LAB | | | | + +---------+ + + Culture, Urine (11/22/2013 12:00 AM PDT) + + | Specimen | + + | Urine specimen | | (specimen) | + + + + + | Narrative | Performed At | + + + | Specimen Description Urine CULTURE | EXTERNAL LAB | | See table below Isolate | | | Identified as Escherichia Coli REPORT STATUS | | | Final | | + + + + +---------+ + + | Performing | Address | City/State/Zipcode | Phone Number | | Organization | | | | + +---------+ + + | EXTERNAL LAB | | | | + +---------+ + + Culture, Urine (05/08/2013 12:00 AM PST) + + | Specimen | + + | Urine specimen | | (specimen) | + + + + + | Narrative | Performed At | + + + | Specimen Description CULTURE | EXTERNAL LAB | | REPORT | | | STATUS | | + + + + +---------+ + + | Performing | Address | City/State/Zipcode | Phone Number | | Organization | | | | + +---------+ + + | EXTERNAL LAB | | | | + +---------+ + + Culture, Urine (02/21/2013 12:00 AM PDT) + + | Specimen | + + | Urine specimen | | (specimen) | + + + + + | Narrative | Performed At | + + + | Specimen Description Urine CULTURE | EXTERNAL LAB | | Probable Contaminants, suggest | | | recollection. OVER 100,000 CFU/ML [employer], IDEITIFICATION | | | AND SUSCEPTIBILITY TO FOLLOW REPORT STATUS | | | Completed | | + + + + +---------+ + + | Performing | Address | City/State/Zipcode | Phone Number | | Organization | | | | + +---------+ + + | EXTERNAL LAB | | | | + +---------+ + + Culture, Urine (02/21/2013 12:00 AM PDT) + + | Specimen | + + | Urine specimen | | (specimen) | + + + + + | Narrative | Performed At | + + + | Specimen Description Urine CULTURE | EXTERNAL LAB | | Probable Contaminants, suggest | | | recollection. ISOLATED IDENTIFIED ESCHERICHIA COLI REPORT STATUS | | | Completed | | + + + + +---------+ + + | Performing | Address | City/State/Zipcode | Phone Number | | Organization | | | | + +---------+ + + | EXTERNAL LAB | | | | + +---------+ + + Culture, Urine (02/21/2013 12:00 AM PDT) + + | Specimen | + + | Urine specimen | | (specimen) | + + + + + | Narrative | Performed At | + + + | Specimen Description urine CULTURE | EXTERNAL LAB | | No Growth at 18-24 hrs. REPORT | | | STATUS preliminary | | + + + + +---------+ + + | Performing | Address | City/State/Zipcode | Phone Number | | Organization | | | | + +---------+ + + | EXTERNAL LAB | | | | + +---------+ + + documented in this encounter Visit Diagnoses Not on filedocumented in this encounter"
--- OUTSIDE RECORDS SUMMARY | ~2019-06-05 | XMS | Encounter Summary ---
Demographics + + + | Address | [address] | | | [place] [address] | + + + | Home Phone [...] Team Providers + +------+ + | Care Property Worker Name | Role | Phone | + +------+ + | Cong Freeman MD | PCP | | + +------+ + Encounter Details +--------+ + + + + | Date | Type | Department | Care Team | Description | +--------+ + + + + | 08/14/ | Documentati | Otolaryngology | Danny Abdullahi | | | 2016 | on | Head and Neck | MD Jessy [address] [facility] | | | | | Surgery Services at | [facility] | | | | | [address] | [place], [place] | | | | | [address] | [address] | | | | | Mailcode: [id number] | [phone] | | | | | [facility] | | | | | | [place], [place] | | | | | | [address] | | | | | | [phone] | | | +--------+ + + + [...]
--- OUTSIDE RECORDS SUMMARY | ~2019-06-05 | XMS | Encounter Summary ---
Demographics + + + | Address | [address] | | | [place] [address] | + + + | Home Phone | | + + + | Preferred Language | Unknown | + + + | Marital Status | | + + + | Mormonism Affiliation | Unknown | + + + | Race | Unknown | + + + | Ethnic Group | Unknown | + + + Author + + + | Author | [facility] | | | and [place] | + + + | Organization | [facility] | | | [...] [place] | | | | | [address] | | + + + + + Care Team Providers + +------+ + | Care Stripper And Printer Name | Role | Phone | + +------+ + | Ruy Chaparro MD | PCP | | + +------+ + Encounter Details +--------+ + + + + | Date | Type | Department | Care Team | Description | +--------+ + + + + | 11/12/ | Orders Only | [facility] | Tammie Gustafson | Ginny (Primary Dx) | | 2015 | | [facility] | MD Desi [address] | | | | | ONCOLOGY [address] [place], [place] | | | | | [place], | [address] | | | | | [place] [address] | | | | | | [phone] | | | +--------+ + + + [...] [place] | | | | | | [address] | | | | | | | | +--------+ + + + + | 03/13/ | Office | Cardiology | Sophie Delacruz, | | | 2019 | Visit | | MD [address] | | | | | | [place] | | | | | | [address] | | | | | | | | +--------+ + + + + documented as of this encounter Visit Diagnoses + + | Diagnosis | + + | Thrush - Primary Candidiasis of mouth | + + documented in this encounter"
--- OUTSIDE RECORDS SUMMARY | ~2019-06-05 | XMS | Encounter Summary ---
Demographics + + + | Address | [address] | | | [place] [address] | + + + | Home Phone | | + + + | Preferred Language | Unknown | + + + | Marital Status | | + + + | Restoration Affiliation | NON | + + + | Race | White | + + + | Ethnic Group | Not or | + + + Author + + + | Author | [facility] | + + + | Organization | [facility] | + + + | Address | Unknown | + + + | Phone | Unavailable | + + + Support + + +---------+ + | Name | Relationship | Address | Phone | + + +---------+ + | Kofia Alex | ECON | Unknown | | + + +---------+ + Care Team Providers + +------+ + | Care Kettle Fry Cook Operator Name | Role | Phone | + +------+ + | Cong Freeman MD | PCP | | + +------+ + Reason for Visit AUTH/CERT +--------+--------+ + + + + | Status | Reason | Specialty | Diagnoses / | Referred By | Referred To | | | | | Procedures | Contact | Contact | +--------+--------+ + + + + | | | | | | | +--------+--------+ + + + + Encounter Details +--------+ + + + + | Date | Type | Department | Care Team | Description | +--------+ + + + + | 08/27/ | Anesthesia | [facility]A Intra Op [id number] | Martha Ramirez MD | | | 2015 | Event | [facility] | [address] [address] | | | | | Rd [facility] | [facility] | | | | | Hospital Admitting | [place], [place] | | | | | Desk Located on the | [address] | | | | | 9th floor | [phone] | | | | | [place], [place] | | | | | | [address] | | | +--------+ + + + + Anesthesia Record + + + + + | Procedure Name | Responsible | Anesthesia Start | Anesthesia Stop Time | | | Anesthesiologist | Time | | + + + + + | SHANKARINCI TRANSORAL | Martha Ramirez MD | 08/27/14 0825 | 08/27/14 1430 | | ROBOTIC SURGERY | | | | | 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 Check | Prior to anesthesia start, pt. Identified, examined, chart | | /3 | 8 | | reviewed, PARLauren held, anesthetic plan made or approved by | | 0/ | 0 | | attending anesthesiologist. NPO status confirmed as appropriate | | 20 | 5 | | for procedure Preoperative evaluation: unchanged | | 15 | | | | +----+---+ + + | | 0 | Eq Check | Anesthesia machine checked Equipment verified | | | 8 | | | | | 0 | | | | | 9 | | | +----+---+ + + | | 0 | An Start | | | | 8 | | | | | 2 | | | | | 5 | | | +----+---+ + + | | 0 | An Start | | | | 8 | Data | | | | 2 | | | | | 9 | | | +----+---+ + + | | 0 | Std. Airway | | | | 8 | Mgt. | | | | 4 | | | | | 4 | | | +----+---+ + + | | 0 | Art Line | | | | 8 | | | | | 5 | | | | | 7 | | | +----+---+ + + | | 0 | Ready | | | | 8 | | | | | 5 | | | | | 9 | | | +----+---+ + + | | 0 | Timeout | | | | 9 | | | | | 0 | | | | | 7 | | | +----+---+ + + | | 0 | Incision | | | | 9 | | | | | 0 | | | | | 8 | | | +----+---+ + + | | 1 | an heather now | Start neck dissection | | | 0 | | | | | 3 | | | | | 9 | | | +----+---+ + + | | 1 | Surgery end | | | | 2 | | | | | 1 | | | | | 5 | | | +----+---+ + + | | 1 | An Extubate | Neuromuscular function Intact. Pharynx suctioned. Patient obeys | | | 2 | | commands. Adequate pulmonary mechanics. | | | 2 | | | | | 4 | | | +----+---+ + + | | 1 | Quick Note | Blood oozing from bilateral nares. Nasal trumpet placed due to | | | 2 | | airway obstruction after extubation. Decision made to reintubate | | | 2 | | patient due to bleeding from bilateral nares and inflation of ALLI | | | 6 | | drain with PPV. Pt preoxygenated with 100% O2. First | | | | | reintubation attempt with glidescope. Epiglottis visualized, but | | | | | we were unable to adequately lift it to visualize cords. Second | | | | | attempt by surgeon with ant commissure scope, unable to pass | | | | | tube. Patient repositioned and a third attempt was made with a | | | | | glidescope with bougie. Similar view as first attempt and the | | | | | bougie was unable to be successfully passed under epiglottis. | | | | | Fourth attempt by surgeon with ant commissure scope and bougie, | | | | | still unable to pass bougie through cords. Fifth attempt: 4.5 | | | | | Air-Q LMA placed, + ventilation confirmed, Aintree stylet placed | | | | | over FOB scope, scope/Aintree placed in airway, scope removed, | | | | | and 7.0 Mike tube threaded over stylet. + EtCO2. Pt bag mask | | | | | ventilated in between attempts with oral airway (2 providers | | | | | required) and O2 sats remained >93% throughout. | +----+---+ + + | | 1 | an heather now | Reexploring source of bleeding | | | 3 | | | | | 0 | | | | | 7 | | | +----+---+ + + | | 1 | Surgery end | | | | 4 | | | | | 0 | | | | | 9 | | | +----+---+ + + | | 1 | an stop | | | | 4 | data | | | | 1 | | | | | 4 | | | +----+---+ + + | | 1 | OR to | patient transported to ICU with continuos monitoring, intubated | | | 4 | ICU/Handoff | and ventilated, signout given to ICU team | | | 1 | | | | | 4 | | | +----+---+ + + | | 1 | Anesthesia | | | | 4 | End | | | | 3 | | | | | 0 | | | +----+---+ + + +------+ | Meds | +------+ + + + | Name | Total | + + + | oxymetazoline (AFRIN) 0.05% nasal | 2 spray | | spray | | + + + | fentaNYL | 500 mcg | + + + | lidocaine 2% | 100 mg | + + + | propofol | 360 mg | + + + | rocuronium | 90 mg | + + + | dexamethasone | 10 mg | + + + | ampicillin- sulbactam | 3 g | + + + | glycopyrrolate | 0.4 mg | + + + | neostigmine | 2 mg | + + + | ondansetron | 4 mg | + + + | hydrALAZINE | 15 mg | + + + | ePHEDrine | 15 mg | + + + | succinylcholine | 100 mg | + + + | lactated ringers IV | 2,500 mL | + + + + + | Name | + + | Insp Sevo | + + | Et Sevo | + + | EtN2O % | + + | Insp N2O % | + + + + | No blood administrations on file. | + + +--------+ + + + | Type | Details | Placement | Removal | +--------+ + + + | RETIRE | 08/27/14; 08/28/14; 1500; No; | 08/27/14 0000 by | 08/28/14 1500 by | | D - | Rachel-charity Cornelius; 16FR | Jason Mast RN | William Doan RN | | Urinar | | | | | y Cath | | | | | | | | | | Placem | | | | | ent | | | | | (Allison | | | | | & Cath | | | | | Care | | | | | Daily | | | | | and Q | | | | | BM) | | | | +--------+ + + + | RETIRE | 08/27/14; No; Left:; palate; | 08/27/14 0000 by | 03/18/17 1622 by | | D - | 03/18/17 (Automatic cleanup per | Jason Mast RN | Discontinued After | | Incisi | RA 3006--contact admin for | | Discharge | | on | questions.); 1622 (Automatic | | | | | cleanup per RA 3006--contact | | | | | admin for questions.) | | | +--------+ + + + | RETIRE | 08/27/14; No; Left:; neck; | 08/27/14 0000 by | 03/18/17 1622 by | | D - | 03/18/17 (Automatic cleanup per | Jason Mast RN | Discontinued After | | Incisi | RA 3006--contact admin for | | Discharge | | on | questions.); 1622 (Automatic | | | | | cleanup per RA 3006--contact | | | | | admin for questions.) | | | +--------+ + + + | RETIRE | 08/27/14; 07; 08/29/14; 2128; | 08/27/14 07 by | 08/29/142128 by | | D - | No; #20 g; 20; Right; Hand; | Nicho Do, | Marco Bridges, | | Periph | Topical; Positive; 1 | RN | RN | | eral | | | | | Line | | | | +--------+ + + + | RETIRE | 08/27/14; 0843; 08/29/14; 0448; | 08/27/14 0843 by | 08/29/14 0448 by | | D - | No; 18; Left; Hand | Jaycee Reece MD | Marco Bridges, | | Periph | | | RN | | eral | | | | | Line | | | | +--------+ + + + | RETIRE | 08/27/14; 0857; 08/28/14; 1500; | 08/27/14 0857 by | 08/28/14 1500 by | | D - | No; 20g; right, radial | Jaycee Reece MD | William Doan RN | | Arteri | | | | | al | | | | | Line | | | | +--------+ + + + | RETIRE | 08/27/14; 1200; 08/30/14; 0730; | 08/27/14 1200 by | 08/30/14 0730 by | | D - | No; 10 FR; ALLI; Left; Neck | Luis Miguel Burton RN | Katharine Adkins, | | Annas | | | RN | | | | | | | (wound | | | | | s/surg | | | | | ical) | | | | +--------+ + + + | RETIRE | 08/27/14; 1200; 08/28/14; 1420; | 08/27/14 1200 by | 08/28/14 1420 by | | D - | No; Endotracheal Tube (ETT); 7; | William Doan RN | William Doan RN | | ETT/Or | Oral; From Teeth (26 cm); Breath | | | | al | Sounds bilaterally; Cuffed | | | | Airway | | | | +--------+ + + + | RETIRE | 08/27/14; 1211; 03/18/17 | 08/27/14 1211 by | 03/18/17 1622 by | | D - | (Automatic cleanup per RA | Luis Miguel Burton RN | Discontinued After | | Gastri | 3006--contact admin for | | Discharge | | c/Feed | questions.); 1622 (Automatic | | | | ing | cleanup per RA 3006--contact | | | | Tube | admin for questions.); No; Left | | | | | Justyn; Monae; 10 FR | | | +--------+ + + + documented in this encounter Social History + +-------+ +--------+------+ | Tobacco [...] Visit Diagnoses Not on filedocumented in this encounter Administered Medications + +--------+ +------+------+------+ | Medication Order | MAR | Action | Dose | Rate | Site | | | Action | Date | | | | + +--------+ +------+------+------+ | ampicillin-sulbactam (UNASYN) | Given | 08/28/19 | 3 g | | | | injection intravenous, | | 15 9:05 | | | | | INTRAPROCEDURE PRN, Starting Mon | | AM PDT | | | | | 08/27/14 at 0905, Until Mon | | | | | | | 08/27/14 at 1419 | | | | | | + +--------+ +------+------+------+ +---+---+ | | | +---+---+ + +-------+ +-------+---+---+ | dexamethasone (DECADRON) | Given | 08/28/19 | 10 mg | | | | injection INTRAPROCEDURE PRN, | | 15 8:53 | | | | | Starting 08/27/14 at 0853, | | AM PDT | | | | | Until 08/27/14 at 1419 | | | | | | + +-------+ +-------+---+---+ +---+---+ | | | +---+---+ + +-------+ +------+---+---+ | ePHEDrine injection | Given | 08/28/19 | 5 mg | | | | intravenous, INTRAPROCEDURE PRN, | | 15 2:00 | | | | | Starting Wed08/27/14 at 1304, | | PM PDT | | | | | Until Wed08/27/14 at 1419 | | | | | | + +-------+ +------+---+---+ +-------+ +------+---+---+ | Given | 08/28/19 | 5 mg | | | | | 15 1:05 | | | | | | PM PDT | | | | +-------+ +------+---+---+ | Given | 08/28/19 | 5 mg | | | | | 15 1:04 | | | | | | PM PDT | | | | +-------+ +------+---+---+ +---+---+ | | | +---+---+ + +-------+ +---------+---+---+ | fentaNYL citrate (PF) | Given | 08/28/19 | 100 mcg | | | | (SUBLIMAZE) injection | | 15 2:18 | | | | | INTRAPROCEDURE PRN, Starting Mon | | PM PDT | | | | | 08/27/14 at 0918, Until Mon | | | | | | | 08/27/14 at 1419, sedation | | | | | | + +-------+ +---------+---+---+ +-------+ +--------+---+---+ | Given | 08/28/19 | 50 mcg | | | | | 15 10:42 | | | | | | AM PDT | | | | +-------+ +--------+---+---+ | Given | 08/28/19 | 50 mcg | | | | | 15 9:33 | | | | | | AM PDT | | | | +-------+ +--------+---+---+ +---+---+ | | | +---+---+ + +-------+ +--------+---+---+ | glycopyrrolate (ROBINUL) | Given | 08/28/19 | 0.4 mg | | | | injection INTRAPROCEDURE PRN, | | 15 11:32 | | | | | Starting 08/27/14 at 1132, | | AM PDT | | | | | Until 08/27/14 at 1419 | | | | | | + +-------+ +--------+---+---+ +---+---+ | | | +---+---+ + +-------+ +------+---+---+ | hydrALAZINE (APRESOLINE) | Given | 08/28/19 | 5 mg | | | | injection intravenous, | | 15 1:56 | | | | | INTRAPROCEDURE PRN, Starting Mon | | PM PDT | | | | | 08/27/14 at 1211, Until Mon | | | | | | | 08/27/14 at 1419 | | | | | | + +-------+ +------+---+---+ +-------+ +------+---+---+ | Given | 08/28/19 | 5 mg | | | | | 15 12:17 | | | | | | PM PDT | | | | +-------+ +------+---+---+ | Given | 08/28/19 | 5 mg | | | | | 15 12:11 | | | | | | PM PDT | | | | +-------+ +------+---+---+ +---+---+ | | | +---+---+ + + + +---+---+---+ | lactated ringers IV 10 mL/hr, | given by | 08/28/19 | | | | | intravenous, PROCEDURE | | 15 2:14 | | | | | CONTINUOUS, Starting Wed08/27/14 | anesthes | PM PDT | | | | | at 0630, Until Wed08/27/14 at | iology | | | | | | 1419 | | | | | | + + + +---+---+---+ + + +---+---+---+ | New Bag | 08/28/19 | | | | | | 15 12:53 | | | | | | PM PDT | | | | + + +---+---+---+ | given by anesthesiology | 08/28/19 | | | | | | 15 11:42 | | | | | | AM PDT | | | | + + +---+---+---+ +---+---+ | | | +---+---+ + +-------+ +--------+---+---+ | lidocaine PF (XYLOCAINE MPF) 20 | Given | 08/28/19 | 100 mg | | | | mg/mL (2 %) injection | | 15 8:43 | | | | | INTRAPROCEDURE PRN, Starting Mon | | AM PDT | | | | | 08/27/14 at 0843, Until Mon | | | | | | | 08/27/14 at 1419 | | | | | | + +-------+ +--------+---+---+ +---+---+ | | | +---+---+ + +-------+ +------+---+---+ | neostigmine (PROSTIGMIN) | Given | 08/28/19 | 2 mg | | | | injection intravenous, | | 15 11:32 | | | | | INTRAPROCEDURE PRN, Starting Mon | | AM PDT | | | | | 08/27/14 at 1132, Until Mon | | | | | | | 08/27/14 at 1419 | | | | | | + +-------+ +------+---+---+ +---+---+ | | | +---+---+ + +-------+ +------+---+---+ | ondansetron (ZOFRAN) injection | Given | 08/28/19 | 4 mg | | | | INTRAPROCEDURE PRN, Starting Mon | | 15 11:44 | | | | | 08/27/14 at 1144, Until Mon | | AM PDT | | | | | 08/27/14 at 1419 | | | | | | + +-------+ +------+---+---+ +---+---+ | | | +---+---+ + +-------+ + +---+---+ | oxymetazoline (AFRIN) 0.05 % | Given | 08/28/19 | 2 sprays | | | | nasal spray INTRAPROCEDURE PRN, | | 15 8:37 | | | | | Starting 08/27/14 at 0837, | | AM PDT | | | | | Until 08/27/14 at 1419 | | | | | | + +-------+ + +---+---+ +---+---+ | | | +---+---+ + +-------+ +-------+---+---+ | propofol INTRAPROCEDURE PRN, | Given | 08/28/19 | 50 mg | | | | Starting 08/27/14 at 0844, | | 15 12:26 | | | | | Until 08/27/14 at 1419 | | PM PDT | | | | + +-------+ +-------+---+---+ +-------+ +-------+---+---+ | Given | 08/28/19 | 30 mg | | | | | 15 12:09 | | | | | | PM PDT | | | | +-------+ +-------+---+---+ | Given | 08/28/19 | 50 mg | | | | | 15 12:07 | | | | | | PM PDT | | | | +-------+ +-------+---+---+ +---+---+ | | | +---+---+ + +-------+ +-------+---+---+ | rocuronium (ZEMURON) injection | Given | 08/28/19 | 20 mg | | | | INTRAPROCEDURE PRN, Starting Mon | | 15 1:05 | | | | | 08/27/14 at 0845, Until Mon | | PM PDT | | | | | 08/27/14 at 1419, Neuromuscular | | | | | | | block | | | | | | + +-------+ +-------+---+---+ +-------+ +-------+---+---+ | Given | 08/28/19 | 20 mg | | | | | 15 10:27 | | | | | | AM PDT | | | | +-------+ +-------+---+---+ | Given | 08/28/19 | 50 mg | | | | | 15 8:45 | | | | | | AM PDT | | | | +-------+ +-------+---+---+ +---+---+ | | | +---+---+ + +-------+ +--------+---+---+ | SUCCINYLCHOLINE CHLORIDE 20 | Given | 08/28/19 | 100 mg | | | | MG/ML INJ (PROSED/RSI) | | 15 12:26 | | | | | INTRAPROCEDURE PRN, Starting Mon | | PM PDT | | | | | 08/27/14 at 1226, Until Mon | | | | | | | 08/27/14 at 1419, Neuromuscular | | | | | | | block | | | | | | + +-------+ +--------+---+---+ +---+---+ | | | +---+---+ documented in this encounter"
--- OUTSIDE RECORDS SUMMARY | ~2019-06-05 | XMS | Encounter Summary ---
Demographics + + + | Address | [address] | | | [place] [address] | + + + | Home Phone | | + + + | Preferred Language | Unknown | + + + | Marital Status | | + + + | Confucianist Affiliation | NON | + + + | Race | White | + + + | Ethnic Group | Not or | + + + Author + + + | Author | [facility] | + + + | Organization | [facility] | + + + | Address | Unknown | + + + | Phone | Unavailable | + + + Support + + +---------+ + | Name | Relationship | Address | Phone | + + +---------+ + | Kofia Alex | ECON | Unknown | | + + +---------+ + Care Team Providers + +------+ + | Care Flux Mixer Name | Role | Phone | + [...] + + + | Closed | | Otolaryngolog | Diagnoses | Non-[facility] | Ent Head | | | | y | tongue | Epic Dept | Neck Ppv | | | | | cancer | | [address] | | | | | | | [address] | | | | | | | Mailcode: | | | | | | | [address] | | | | | | | [facility] | | | | | | | [facility] | | | | | | | [place], [place] | | | | | | | [address] | | | | | | | Phone: | | | | | | | [phone] | | | | | | | Fax: | | | | | | | [phone] | +--------+--------+ + + + + Encounter Details +--------+---------+ + + + | Date | Type | Department | Care Team | Description | +--------+---------+ + + + | 08/20/ | Office | Otolaryngology | Danny Castillo | Squamous cell | | 2015 | Visit | Head and Neck | MD Jessy [address] | carcinoma of | | | | Surgery Services at | [address] | oropharynx (HCC) | | | | [facility] [address] | [place], [place] | (Primary Dx) | | | | [address] | [address] | | | | | Mailcode: [address] | [phone] | | | | | [facility] | | | | | | [place], [place] | | | | | | [address] | | | | | | [phone] | | | +--------+---------+ + + + Social History + +-------+ [...] + + + | Blood Pressure | 128/52 | 08/20/2014 2:04 PM | | | | | PDT | | + + + + + | Pulse | 59 | 08/20/2014 2:04 PM | | | | | PDT | | + + + + + | Temperature | - | - | | + + + + + | Respiratory Rate | - | - | | + + + + + | Oxygen Saturation | - | - | | + + + + + | Inhaled Oxygen | - | - | | | Concentration | | | | + + + + + | Weight | 97.5 kg (215 lb) | 08/20/2014 2:04 PM | | | | | PDT | | + + + + + | Height | 180.3 cm (5' 11") | 08/20/2014 2:04 PM | | | | | PDT | | + + + + + | Body Mass Index | 29.99 | 08/20/2014 2:04 PM | | | | | PDT | | + + + + + documented in this encounter Progress Notes Danny Castillo MD - 08/20/2014 8:53 PM PDT Otololaryngology Head and Neck Surgery Clinic Date: 08/20/2014 Author: DANNY CASITLLO MD Referring Physician: No Referring Provider Per Patient Chief Complaint Oropharynx squamous cell carcinoma History of Present Illness: Mr. 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 He noted several months of discomfort in his throat, and finally was diagnosed after the apperance of an enlarged l ymph node in the left neck. He notes very monor discomfort with swallowing, but no dyspnea, otalgia, or other masses or lesions. He has undergone imaging, panendoscopy, and biopsy at the [place], confirming the presence of a p16+ SCC of the left base of tongue. No other complai nts today Risk Factors: He denies a history of alcohol and tobacco use. He denies any exposure to rad iation and has no significant sun exposure history. There is no family history of head and neck cancer. Additional evaluation has included: CT scan, panendoscopy, biopsy. Review of Systems: A complete review of systems was performed, including the following: constitutional, cardio vascular, genitourinary, neurologic, allergic, eyes, ears, nose, mouth, throat, gastrointest inal, skin, hematologic, respiratory, musculoskeletal. Pertinent positives and negatives are recorded in the HPI and PMHx. All others negative. All available and pertinent outside records were reviewed. [place] findings related to the visi t today are listed in the HPI above. Past Medical History Diagnosis Date CAD (coronary artery disease) CKD (chronic kidney disease) stage 3, GFR 30-59 ml/min Difficult intubation per anesthesia [facility], easy to ventilate, grade 1 view using glidescope Past Surgical History Procedure Laterality Date Panendoscopy Hiatal hernia repair Medications Current Inpatient Medications Medication acetaminophen 500 mg oral tablet allopurinol 300 mg oral tablet aspirin chewable 81 mg oral tablet,chewable carvedilol 12.5 mg oral tablet clopidogrel 75 mg oral tablet CYANOCOBALAMIN, VITAMIN B-12, (VITAMIN B-12 INJ) FOLIC ACID/MULTIVITS-MIN/LUT (CENTRUM SILVER ORAL) hydrochlorothiazide 25 mg oral tablet isosorbide mononitrate CR 30 mg oral tablet extended release 24 hr losartan 50 mg oral tablet nitroglycerin 0.4 mg sublingual tablet, sublingual ondansetron 4 mg oral tablet oxyCODONE, immediate release, 5 mg oral tablet simvastatin 10 mg oral tablet tamsulosin 0.4 mg oral capsule,extended release 24hr No current facility-administered medications for this visit. Allergies No Known Allergies History Social History Marital Status: Spouse Name: N/A Number of Children: N/A Years of Education: N/A Occupational History Not on file. 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 [employer] Performance Status: 90 FamHx: No history of head and neck cancer Family History Problem Relation Cancer Daughter Breast Cancer Daughter Breast Physical Exam BP 128/52 | Pulse 59 | Ht 1.803 m (5' 11") | Wt 97.523 kg (215 lb) | BMI 30 kg/(m^2) GENERAL: Well developed, well nourished, Speech is intact. NEURO: Awake, alert, oriented x3, CN intact PSYCH: Appropriate. FACE: Normal facial contour, normal facial nerve function, no suspicious skin lesions of fa ce, neck, or scalp. EYES: Vision grossly intact, EOMI, PERRLA, lids normal. EARS: Tympanic membranes transparent bilaterally, no evidence of effusion or infection. NOSE: No external trauma or lesions, clear to anterior rhinoscopy. MOUTH: No trismus. Fair dentition with no obvious caries. Salivary ducts clear. Tonsils pre sent and symmetric. No mucosal lesions of the hard palate, upper/lower alveolus, buccal muco sa, floor of mouth, lips, or tongue. NECK: No adenopathy or masses, bilaterally aside from 2cm node in left level II. Thyroid no rmal to palpation. SKIN: Normal. CV: Regular rate and rhythm RESP: No stridor, no retraction, no increased work of breathing. 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 We discussed at length today the disease, treatment options and expected prognosis. We also discussed the potential role of HPV in his cancer and the prognostic impl ications of this. The patient was informed that he will likely need multimodality therapy to treat his cancer. We discussed today extensively his potential options for treatment includ ing induction/sequential therapy, concurrent chemoradiation and surgery followed by adjuvant radiation +/- chemotherapy. We reviewed the pros and cons of each strategy thoroughly. The patient asked many questions which I answered to the best of my ability. Assuming that my cl inical impression is confirmed, I recommended to him a primary surgical approach to allow fo r more accurate staging and to potentially avoid radiation therapy. He appears to be a good candidate for transoral robotic surgery (TORS). The goal of a primary surgical approach usin g TORS in his case would be to potentially avoid the addition of chemotherapy to radiation a nd to reduce the overall dose of radiation. After all questions were answered, consent was s igned. Surgery is scheduled for 08/27/14. Mr. Johnson was seen by our Research Associate, JIMMIE Suárez, and myself. Mr. Johnson was off ered the study entitled A Randomized, Placebo Controlled, Double Blinded Study of Cortico steroid Treatment for the Reduction of Postoperative Pain Following Transoral Robotic Surger y and given a consent form to review. We discussed the study in detail with the Mr. Johnson. Mr. Johnson has been invited to participate in this study because he has been diagnosed with o ropharyngeal squamous cell carcinoma with the plan to undergo surgical resection of his tumo r via TORS. We discussed the consent form in detail and reviewed each section with the Mr. Johnson. His fa marcos was also present. The voluntary nature of participating in a clinical trial was emphasi zed. Issues related to reimbursement were discussed in detail, including clarification of standard of care versus study related/reimbursed procedures. Mr. Johnson and was given adequate opportunity to consider all options and he and his family a sked valid questions. Mr. Johnson verbalized understanding of the informed consent process and information presented, demonstrating capacity to consent. He signed the informed consent for m and the HIPAA authorization form today. Study procedures will be scheduled to begin after eligibility has been confirmed and registration has been completed. Mr. Johnson will be updated with any new information as it becomes available. Danny Castillo MD PhD Department of Otolaryngology/Head and Neck Surgery [address] Mailcode: [address] [place] [id number] documented in thi s encounter Plan of Treatment Not on filedocumented as of this encounter Visit Diagnoses + + | Diagnosis | + + | Squamous cell carcinoma of oropharynx (HCC) - Primary Malignant neoplasm of | | oropharynx, unspecified site | + + documented in this encounter
--- OUTSIDE RECORDS SUMMARY | ~2019-06-05 | XMS | Encounter Summary ---
Demographics + + + | Address | [address] | | | [place] [address] | + + + | Home Phone | | + + + | Preferred Language | Unknown | + + + | Marital Status | | + + + | Catholic Affiliation | Unknown | + + + | Race | Unknown | + + + | Ethnic Group | Unknown | + + + Author + + + | Author | [facility] | | | and [place] | + + + | Organization | [facility] | | | and [place] | + + + | Address | Unknown | + + + | Phone | Unavailable | + + + Support + + + + + | Name | Relationship | Address | Phone | + + + + + | Allie Johnson | ECON | [address] | | | | | [place] | | | | | [address] | | + + + + + Care Team Providers + +------+ + | Care Records Management Specialist Name | Role | Phone | + +------+ + | Ruy Chaparro MD | PCP | | + +------+ + Reason for Visit + + + | Reason | Comments | + + + | IDT Note | | + + + Encounter Details +--------+ + + + + | Date | Type | Department | Care Team | Description | +--------+ + + + + | 10/12/ | Documentati | [facility] | Kimberly Lockett, | FRANCHESCA Note | | 2014 | on | [facility] | PharmD [address] | | | | [address] [place] | [address] [place] | | | | | [place] [address] | [place] [address] | | | | | [phone] | [phone] | | | | | | | [...] documented as of this encounter Progress Notes Kimberly Lockett, PharmD - 10/12/2014 2:22 PM PDTFormatting of this note might be differen t from the original. IDT PATIENT MEDICATION/PROFILE REVIEW [facility] Pharmacy Recommendation Information only Pharmacy Assessment Therapy emetogenicity risk vs. supportive meds ordered: minimal/appropriate Drug interactions of concern: None Allergy/Duplicate/Contraindications/Other: None Lab-based dose adjustments suggested: None- multiple adjustments indicated based on toxicit ies experienced. VTE Risk Factors Identified: VTE risk(s) in this patient Unable to fully assess, no current labs available. _Khorana risk score=0 (risk of symptomatic VTE 0.8-3%): No recommended actions at this time . __Khorana risk score= 1-2 (risk of symptomatic VTE 1.8-8.4%): Consider periodically re-asse ssing risk for VTE. __Khorana risk score=/>3 (risk of symptomatic VTE 7.1-41%): Consider education with patient regarding risk versus benefits of VTE prophylaxis. Cardiac toxicity risks/recommended monitoring: None needed Objective Data Navi Johnson is a 79 y.o. male , Wt 93.9 kg , Ht 184 cm, BSA 2.19, BMI 27.8 9, Est CrCl = No creatinine on file, H&P mentions history of CKD, previous SCr of 1.59 on Allergies : Oxycodone Diagnosis:The encounter diagnosis was Carcinoma of oropharynx (HCC). Treatment Regimen: Radiation therapy plus Cetuximab 400 mg/m2 Chemotherapy/Supportive therapy: Premedicate with acetaminophen and diphenhydramine (preven tion of infusion reaction- rash) Reference/citation for therapy: [facility]: Joaquin LEACH, et al. Radiotherapy plus Cetuximab for Sq uamous-Cell Carcinoma of the Head and Neck. [facility] 2006; 354(2):567. Pertinent Medical History: has a past medical history of Gout; Macular degeneration of lef t eye; Cancer of base of tongue (HCC); Cardiovascular disease; Hearing loss; [place] (myocardial infarction) (HCC) (2013); and HTN (hypertension). Other pertinent objective data: Per clinical trials should initiate radiation therapy 1 doug r after cetuximab infusion has completed. Current Medications: Current Outpatient Prescriptions on File Prior to Visit Medication Sig Dispense Refill acetaminophen (TYLENOL) 500 mg tablet Take 500 mg by mouth every 6 hours as needed for Pain. Take 1,000mg Po prn allopurinol (ZYLOPRIM) 300 mg tablet Take 300 mg by mouth Daily. aspirin 81 mg chewable tablet Take 81 mg by mouth Daily. carvedilol (COREG) 12.5 mg tablet Take 12.5 mg by mouth 2 times daily (with breakfast & dinner). clopidogrel (PLAVIX) 75 mg tablet Take 75 mg by mouth Daily. cyanocobalamin (VITAMIN B-12) 1,000 mcg/mL injection Inject 1,000 mcg into the muscle o nce. Every 30 days fentaNYL (DURAGESIC) 12 mcg/hr Place 1 patch onto the skin every 72 hours. 10 patch 0 hydrochlorothiazide 25 mg tablet Take 25 mg by mouth Daily. isosorbide mononitrate (IMDUR) 30 mg ER tablet Take 30 mg by mouth Daily. losartan (COZAAR) 50 mg tablet Take 50 mg by mouth Daily. nitroglycerin (NITROSTAT) 0.[address] 0.4 mg under the tongue every 5 minute s as needed for Chest pain. simvastatin (ZOCOR) 10 mg tablet Take 20 mg by mouth nightly. No current facility-administered medications on file prior to visit. Pertinent Baseline Labs: No results found for this basename: wbc, neuabs, plt, hgb, hct, crea, bilitot, ast, alt, in r documented in th is encounter Plan of Treatment +--------+ + + + + | Date | Type | Specialty | Care Team | Description | +--------+ + + + + | 12/10/ | Appointment | Radiation Oncology | Art Red DO | | | 2019 | | | [address] | | | | | | [place] | | | | | | [address] | | | | | | | | +--------+ + + + + | 03/13/ | Office | Cardiology | Sophie Delacruz, | | | 2019 | Visit | | MD [address] | | | | | | [place] | | | | | | [phone] | | | | | | | | +--------+ + + + + documented as of this encounter Visit Diagnoses Not on filedocumented in this encounter"
--- OUTSIDE RECORDS SUMMARY | ~2019-06-05 | XMS | Encounter Summary ---
Demographics + + + | Address | [address] | | | [place] [address] | + + + | Home Phone [...] [place] | | | | | [address] | | + + + + + Care Team Providers + +------+ + | Care Gasoline Power Shovel Operator Name | Role | Phone | + +------+ + | Ruy Chaparro MD | PCP | | + +------+ + Reason for Visit + + + | Reason | Comments | + + + | Therapy Daily | | | Treatment | | + + + Evaluate & [...] Cancer of | Art Holloway DO | Tank Car Inspector [address] | | | Required | | base of | [address] | [place] | | | | | tongue (HCC) | [address] | [place], [place] | | | | | [address] | [place], | [address] | | | | | (ICD-9-CM) - | [place] [address] | Phone: | | | | | Cancer of | Phone: | [phone] | | | | | base of | [phone] | Fax: | | | | | tongue (HCC) | Fax: | [phone] | | | | | Procedures | [phone] | | | | | | Speech | | | +--------+ + + + + + Encounter Details +--------+ + + + + | Date | Type | Department | Care Team | Description | +--------+ + + + + | 10/29/ | Hospital | [facility] | Spenser Valle | Dysphagia (Primary | | 2015 | Encounter | MED CTR SPEECH | MD Jason [address] | Dx) | | | | THERAPY [address] [place] | | | | | [place], | [place] [address] | | | | | [place] [address] | [phone] | | | | | [phone] | | | | | | | Michelle Vera | | | | | | M, Speech | | | | | | Pathologist [address] | | | | [address] [place] | | | | | | [place] [address] | | | | | | [phone] | | | | | | | [...] Progress Notes Michelle Mcnally, Speech Pathologist - 10/30/2014 4:51 PM PDT [facility] SPE[facility]ERAPY [address] [facility] [address] Speech Therapy Daily Treatment Note Date: 10/29/2014 Patient Information Patient Name: Navi Johnson Date of : 1935 Age: 79 y.o. Encounter Diagnoses Code Name Primary? 787.20 Dysphagia Yes Date of Onset: 08/27/14 Referring Provider: Spenser Valle MD Rehab Precautions [facility] INSURANCE ACCOUNT ASSISTANT OP EVAL from 10/03/2014 in [facility] SPEECH THERAPY Rehab Precautions Precautions Hearing impairment, Vision impairment Rehab Learning Style Office Visit from 10/08/2014 in [facility] THERAPY OT OP [facility] INSURANCE ACCOUNT ASSISTANT OP E ANTONY from 10/03/2014 in [facility] SPEECH THERAPY Learning Style Patient's Optimum Learning Style reading, performance of task performance of task Pain Assessment Pain Scale Used: FLACC Pain Rating During Assessment: 0 Today's Treatment Patient Name: Navi Matias Alex/: 1935/ Start Time: 909 Stop time: 1000 Duration: 50 minutes Timed Treatment Codes: 0 minutes # of Speech Visits to Date: 2 Visit Summary: Pt seen for session with in out patient rehab. Pt reported that he has not had radiation therapy last week because "the machine was broken." So this visit motta e second week of 6 of radiation treatment. At this time Pt reports no difficulty swallowing in fact he reported that his ability has improved and he no longer needs to use the chin tuc k head tilt to help pharyngeal transit. He has not needed to modify his diet at this time. P t reported that he is not using his swallow exercises. Pt has been controlled with fentanyl patch. Oral exam revealed a slightly red patch near on superior soft palate. Pt reported mor e dry mouth. INSURANCE ACCOUNT ASSISTANT rec magic mouthwash and frequent oral care as well as re-educated on the pu rpose of doing swallow and jaw exercises to maintain strength and ROM to enable swallowing. INSURANCE ACCOUNT ASSISTANT also educated on the importance of drinking water. Pt and are compliant with gia tment regimen. INSURANCE ACCOUNT ASSISTANT to follow Pt during radiation treatment. Next Visit: Swallow eval of varied textures, diet texture modification and oral motor exerc ise education INSURANCE ACCOUNT ASSISTANT Treatment INSURANCE ACCOUNT ASSISTANT Treatment: patient/caregiver education, oral motor exercise, home program instruction, compensatory strategies Patient/Caregiver Education Learner: Patient Readiness: Acceptance Method: Explanation, Demonstration, Handout Response: Verbalizes Understanding, Demonstrated Understanding Learner: Significant Readiness: Acceptance Method: Explanation, Demonstration, Handout Response: Verbalizes Understanding Speech Home Exercises Speech Home Exercises: Home Ex #1 Home Exercise #1: Lateral and ant/post jaw exercises, and lingual exercises during radiatio n treatment to maintain ability to chew/swallow and speak. Home Exercise Duration #1: 10 reps each Home Exercise Reps #1: daily Assessment Rehabilitation potential: Patient demonstrates good potential to achieve established goals to address the documented impairments by participating in skilled speech and language therap y services. Outcome Specific Scored Goals Patient's Primary Functional Goal 1: Pt will use strategies taught and diettexture modifica tion in order for him to sustain his needs and eat safely Goal Motor Speech STG Motor Speech: Pt will demonstrate adequate ROM of jaw and lingual structures after perf orming oral motor exercises daily as prescribed during radiation treatment to maintain abili ty to chew and speak. Electronically signed by: Michelle Mcnally SPEECH PATHO, 10/30/2014 16:52 Patient Name: Navi Johnson/: 1935/ documented in [...] [place] | | | | | | [id number] | | | | | | | | +--------+ + + + + | 03/13/ | Office | Cardiology | Sophie Delacruz, | | | 2019 | Visit | | MD [address] | | | | | | [place] | | | | | | [address] | | | | | | | | +--------+ + + + + documented as of this encounter Visit Diagnoses + + | Diagnosis | + + | Dysphagia - Primary Dysphagia, unspecified | + + documented in this encounter
--- OUTSIDE RECORDS SUMMARY | ~2019-06-05 | XMS | Encounter Summary ---
Demographics + + + | Address | [address] | | | [place] [address] | + + + | Home Phone | | + + + | Preferred Language | Unknown | + + + | Marital Status | | + + + | Christian Affiliation | Unknown | + + + [...] [place] | | | | | [address] | | + + + + + Care Team Providers + +------+ + | Care Risk Mgr Name | Role | Phone | + +------+ + | Angel Lynch DO | PCP | | + +------+ + Encounter Details +--------+ + + + + | Date | Type | Department | Care Team | Description | +--------+ + + + + | 08/27/ | Orders Only | [facility] | Mirna Hare, CARE CLINICIAN | | | 2015 | | [address] | | | | [address] | [place] [address] | | | | | [place], [place] | [phone] | | | | | [address] | | | | | | [phone] | | | +--------+ + + + [...] [place] | | | | | | [address] | | | | | | | | +--------+ + + + + | 03/13/ | Office | Cardiology | Sophie Delacruz, | | | 2019 | Visit | | MD Chivo DIAZ | | | | | | [place] | | | | | | [phone] | | | | | | | [...] Grade | | | 1 diastolic abnormality, Franklin visually estimates LVEF 60-65%. Mild | | [...] Grade 1 | | | diastolic abnormality, [place] visually estimates LVEF 60-65%. Mild | | [...] | 23.76 ml LVLs A2C: 6.08 cm Asbestos Coverer: MARINA Authenticated by: | | | Marco Cristina DO Report Date/Time: -- [id number] | | + + + + + | Procedure Note | + + | Maciel, Rad Conversion - 01/19/2019 9:27 PM PDT Patient Name: Devon Johnson of | | : 1935 Performing Physician: Marco Cristina | | DO INDICATIONS P | | ULMONARY HTN CONCLUSIONS 1. See Dictation. 2. LV dimensions and systolic | | function NML, Grade 1 diastolic abnormality, [place] visually estimates LVEF 60-65%. | | Mild [...] 23.76 mlLVLs A2C: | | 6.08 cm Asbestos Coverer: DBSAuthenticated by: Marco Cox Date/Time: -- | | [id number] IMPRESSION: 1. See Dictation. 2. LV dimensions and systolic | | function NML, Grade 1 diastolic abnormality, [place] visually estimates LVEF 60-65%. | | Mild [...] |LVLs A2C: 6.08 cm | | | |Asbestos Coverer: DBS | |Authenticated by: Marco Cristina DO | |Report Date/Time: -- [id number] | | | |IMPRESSION: | |1. See Dictation. 2. LV dimensions and systolic function NML, Grade 1 diastolic abnormality , [place] visually estimates LVEF 60-65%. Mild LAE. RA/RV [...]
--- OUTSIDE RECORDS SUMMARY | ~2019-06-05 | XMS | Encounter Summary ---
Demographics + + + | Address | [address] | | | [place] [address] | + + + | Home Phone [...] [place] | | | | | [address] | | + + + + + Care Team Providers + +------+ + | Care Cellophane Bag Machine Operator Name | Role | Phone [...] neoplasm of | [address] [place] | | | | | oropharynx, | [address] | [place], | | | | | unspecified | [place], | [place] [address] | | | | | site | [place] [address] | Phone: | | | | | Procedures | Phone: | [phone] | | | | | ID IV | [phone] | Fax: | | | | | INFUSION, | Fax: | [phone] | | | | | HYDRATION, | [phone] | | | | | | 31-60 MIN | | | | | | | ID IV | | | | | | | INFUSION, | | | | | | | HYDRATION, | | | | | | | 31-60 MIN | | | +--------+--------+ + + + + Encounter Details +--------+ + + + + | Date | Type | Department | Care Team | Description | +--------+ + + + + | 11/23/ | Hospital | [facility] | Art Red DO | Dysphagia; Carcinoma | | 2015 | Encounter | MED CTR CHEMO | [address] | of oropharynx (HCC) | | | | INFUSION [address] | [place], [place] | | | | | [place], | [address] | | | | | [place] [address] | | | | | | [phone] | | | +--------+ + + + [...] + + + | Blood Pressure | 108/53 | 11/23/2014 10:04 AM | | | | | PDT | | + + + + + | Pulse | 60 | 11/23/2014 10:04 AM | | | | | PDT | | + + + + + | Temperature | 37.2 C (99 F) | 11/23/2014 10:04 AM | | | | | PDT | | + + + + + | Respiratory Rate | 16 | 11/23/2014 10:04 AM | | | | | PDT | | + + + + + | Oxygen Saturation | 94% | 11/23/2014 10:04 AM | | | | | PDT [...] mouth | 600 mL | 3 | 05/29/20 | | | | every 4 hours [...] documented as of this encounter Progress Notes Alice Childress RN - 11/23/2014 11:45 AM PDTPatient discharged in satisfactory conditio n. Discharged ambulatory. With family. To home. Verified that patient has antinausea medications at home. Future appointments verified heltonAlice RN - 11/23/2014 10:09 AM PDTEnergy level: low, "can't do much" Fever or chills: no Appetite: fair, drinking fluids Nausea and/or vomiting: no Bowels: okay Numbness and tingling: no Bleeding or bruising: no Karnofsky: 80% Nurses notes: RN check for IV fluids after Radiation tx. Alert & oriented. Denies pain or discomfort this AM, PRN pain rx helpful documented in this encounter Plan of Treatment [...] [place] | | | | | | [address] | | | | | | | | +--------+ + + + + | 03/13/ | Office | Cardiology | Sophie Delacruz, | | | 2019 | Visit | | MD Chivo DIAZ | | | | | | [place] | | | | | | [address] | | | | | | | [...] chloride 0.9% (NS) | New Bag | 11/24/19 | | 650 | | | infusion at 650 mL/hr, | | 15 10:03 | | mL/hr | | | Intravenous, ONCE, Wed11/23/14 at | | AM PDT | | [...] | | | +---+---+ documented in this encounter
--- OUTSIDE RECORDS SUMMARY | ~2019-06-05 | XMS | Encounter Summary ---
Demographics + + + | Address | [address] | | | [place] [address] | + + + | Home Phone | | + + + | Preferred Language | Unknown | + + + | Marital Status | | + + + | Zoroastrianism Affiliation | Unknown | + + + | Race | Unknown | + + + | Ethnic Group | Unknown | + + + Author + + + | Author | [facility] | | | and [place] | + + + | Organization | [facility] | | | and [place] | + + + | Address | Unknown | + + + | Phone | Unavailable | + + + Support + + + + + | Name | Relationship | Address | Phone | + + + + + | Allie Johnson | ECON | [address] | | | | | [place] | | | | | [address] | | + + + + + Care Team Providers + +------+ + | Care Sewing Demonstrator Name | Role | Phone | + [...] neoplasm of | [address] [place] | | | | | oropharynx, | [address] | [place], | | | | | unspecified | [place], | [place] [address] | | | | | site | [place] [address] | Phone: | | | | | Procedures | Phone: | [phone] | | | | | IN IV | [phone] | Fax: | | | | | INFUSION, | Fax: | [phone] | | | | | HYDRATION, | [phone] | | | | | | 31-60 MIN | | | | | | | IN IV | | | | | | | INFUSION, | | | | | | | HYDRATION, | | | | | | | 31-60 MIN | | | +--------+--------+ + + + + Encounter Details +--------+ + + + + | Date | Type | Department | Care Team | Description | +--------+ + + + + | 11/26/ | Hospital | [facility] | Art Red DO | Dysphagia; Carcinoma | | 2015 | Encounter | MED CTR CHEMO | [address] | of oropharynx (HCC) | | | | INFUSION [address] | [place], [place] | | | | | [place], | [address] | | | | | [place] [address] | | | | | | [phone] | | | +--------+ + + + [...] + + + | Blood Pressure | 133/59 | 11/26/2014 10:23 AM | | | | | PDT | | + + + + + | Pulse | 63 | 11/26/2014 10:23 AM | | | | | PDT | | + + + + + | Temperature | 36.6 C (97.9 F) | 11/26/2014 10:23 AM | | | | | PDT | | + + + + + | Respiratory Rate | - | - | | + + + + + | Oxygen Saturation | 97% | 11/26/2014 10:23 AM | | | | | PDT [...] encounter Progress Notes Alice Childress RN - 11/26/2014 12:15 PM PDTPatient discharged in satisfactory conditio n. Discharged ambulatory. With family. To home. Verified that patient has antinausea medications at home. Future appointments verified Farrah Dawn RN - 11/26/2014 10:24 AM PDTEnergy level: Low Fever or chills: Denies Appetite: Poor - forces self to eat and drink fluids Nausea and/or vomiting: Often nauseated - not now. Bowels: Okay Numbness and tingling: None Bleeding or bruising: None Karnofsky: 70 Nurses notes: Here for IVF. States he has 3 more days of radiation therapy. No new compl aints. Farrah Rose RN documented in this encounter Plan of Treatment +--------+ + + + + | Date | Type | Specialty | Care Team | Description | +--------+ + + + + | 12/10/ | Appointment | Radiation Oncology | Art Red DO | | 2019 | | | [address] [address] | | | | | | [place] | | | | | | [address] | | | | | | | | +--------+ + + + + | 03/13/ | Office | Cardiology | Sophie Delacruz, | | 2019 | Visit | Rosemarie DIAZ | | | | | | [place] | | | | | | [address] | | | | | | | [...] heparin 100 units/mL flush | Given | 11/27/19 | 500 | | | | injection 500 Units 500 Units (5 | | 15 12:11 | Units | | | | mL), Intracatheter, PRN, Line | | PM PDT | | | | | Care, Starting 11/26/14 at | | | | | | | 1015, , | | | | | | + +--------+ +-------+------+------+ +---+---+ | | | +---+---+ + +---------+ +---+-------+---+ | sodium chloride 0.9% (NS) | New Bag | 11/27/19 | | 650 | | | infusion at 650 mL/hr, | | 15 10:32 | | mL/hr | | | Intravenous, ONCE, Wed11/26/14 at | | AM PDT | | | | | 1045, For 1 dose, Give 1 liter | [...]
--- OUTSIDE RECORDS SUMMARY | ~2019-06-05 | XMS | Encounter Summary ---
Demographics + + + | Address | [address] | | | [place] [address] | + + + | Home Phone | | + + + | Preferred Language | Unknown | + + + | Marital Status | | + + + | Islam Affiliation | Unknown | + + + | Race | Unknown | + + + | Ethnic Group | Unknown | + + + Author + + + | Author | [facility] | | | and [place] | + + + | Organization | [facility] | | | [...] [place] | | | | | [address] | | + + + + + Care Team Providers + +------+ + | Care Survey Research Manager Name | Role | Phone | + +------+ + | Ruy Chaparro MD | PCP | | + +------+ + Reason for Visit + + + | Reason | Comments | + + + | Pain -Cancer Related | | + + + Evaluate & Treat (Routine) +--------+ + + + + + | Status | Reason | Specialty | Diagnoses / | Referred By | Referred To | | | | | Procedures | Contact | Contact | +--------+ + + + + + | Closed | Specialty | Rehabilitatio | Diagnoses | Lord, | [facility] | | | Services | n | Malignant | Art Holloway DO | Oncology | | | Required | | neoplasm of | [address] | [address] | | | | | base of | [address] | [address] [place] | | | | | tongue (HCC) | [place], | [place], | | | | | | [place] [address] | [place] [address] | | | | | | Phone: | Phone: | | | | | | [phone] | [phone] | | | | | | Fax: | Fax: | | | | | | [phone] | [phone] | +--------+ + + + + + Encounter Details +--------+---------+ + + + | Date | Type | Department | Care Team | Description | +--------+---------+ + + + | 10/23/ | Office | [facility] | Spenser Valle | Carcinoma of | | 2015 | Visit | MED CNT ONCOLOGY | MD Jason [address] | oropharynx (HCC) | | | | THERAPY [address] | [address] [place] | (Primary Dx) | | | | [place], | [place] [address] | | | | | [place] [address] | [phone] | | | | | [phone] | | | | | | | Ann Marie Villegas, | | | | | | OT | | +--------+---------+ + + + Social [...] documented as of this encounter Progress Notes Ann Marie Villegas OT - 10/23/2014 10:07 AM PDT [facility] [address] [facility] [address] Occupational Therapy Discharge Note Date: 10/23/2014 Patient Information Patient Name: Navi Johnson Date of : 1935 Age: 79 y.o. Start of Care Date: 10/08/2014 History Encounter Diagnoses Code Name Primary? 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) Cardiovascular disease Hearing loss AR (myocardial infarction) (HCC) 2013 HTN (hypertension) Past Surgical History Procedure Laterality Date Knee surgery Right knee Microlaryngoscopy 08/27/2014 Rigid esosphagoscopy 08/27/14 Pharyngectomy and left parcial glossectomy 08/27/14 Allergies Allergen Reactions Oxycodone Rehab Precautions [facility] OP EVAL from 10/03/2014 in [facility] Rehab Precautions Precautions Hearing impairment, Vision impairment Pain Assessment Pain Scale Used: FLACC Pain Rating Pre Assessment: 0 Pain Rating During Assessment: 0 DISCHARGE NOTE: SUBJECTIVE: Navi Johnson has completed 3 therapy visits for treatment of decrease d neck ROM, pain, and scar fibrosis s/p surgery for oropharynx ca. Patient reports improved ROM, tolerance for activities w/ decreased pain and states that he is independent with his H EP. OBJECTIVE: ROM: (Eval) UE: BUEs WFL Neck: Forward flex: 39 deg L Lateral flex: 30 deg R Lateral flex: 19 deg L Lateral rot: 52 deg R Lateral rot: 34 deg (Discharge) UE: BUEs WFL Neck: Forward flex: 39 deg L Lateral flex: 30 deg R Lateral flex: 32 deg L Lateral rot: 52 deg R Lateral rot: 60 deg Outcome Measure: Patient was tested with the Brief Pain Inventory. Eval: score of 39/110; Discharge: score o f ASSESSMENT: Navi Johnson has successfully completed his POC for treatment of pain, decreased ROM,edema and scar management s/p surgery for oropharyx ca. 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 Functional Limitation Reporting G Code Severity Modifier Discharge Status G8989 Self care functional limitation, discharge status CI At least 1 perc ent but less than 20 percent impaired, limited or restricted Goal G8988 Self care functional limitation, projected goal status CI At least 1 percent bu t less than 20 percent impaired, limited or restricted Based upon pain level of 0/10 and a score of .08% disability on the Brief Pain Inventory [facility] Outcome Measurement Tool. LONG-TERM GOAL: OP OT Goals OP OT Goals: Goal 1, Goal 2, Goal 3 Goal 1: Decrease pain from 4/10 to 1/10 at worst to improve ability to perform chewing and eating activities. Goal 1 Status: Goal Met Goal 2: Independent home exercise program to facilitate independent symptom management. Goal 2 Status: Goal Met Goal 3: Reduce Brief Pain Inventory score from 35.5 to 25.0 or less indicating improved AD L function and mobility. Goal 3 Status: Goal Met Today's Treatment Start Time: 0930 Stop time: 1000 Duration: 30 minutes Timed Treatment Codes: 30 minutes # of OT Visits: 3 Objective: Provided patient and spouse w/ final HEP review and completed final re-measurem ents for progress and status. Patient has made excellent progress; goals met. No further q uestions/concerns at this time regarding OT. Encouraged patient to continue w/ HEP, juan luis ROM exs and scar massage during remaining radiation. Patient is continuing to be followed by [facility] as indicated for swallowing concerns. PLAN: Discharge to HEP. Certification From: 10/08/2014 Certification To: 01/08/2015 Electronically signed by: Ann Marie Villegas OT, 10/23/2014 10:33 Patient Name: Navi Johnson/: 1935/ documented in [...] Delacruz, | | 2019 | Visit | | MD [address] | | | | | | [place] | | | | | | [address] | | | | | | | | +--------+ + + + + documented as of this encounter Visit Diagnoses + + | Diagnosis | + + | 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
--- OUTSIDE RECORDS SUMMARY | ~2019-06-05 | XMS | Encounter Summary ---
Demographics + + + | Address | [address] | | | [place] [address] | + + + | Home Phone | | + + + | Preferred Language | Unknown | + + + | Marital Status | | + + + | Holiness Affiliation | Unknown | + + + [...] [place] | | | | | [address] | | + + + + + Care Team Providers + +------+ + | Care Tunnel Elastic Operator Chainstitch Name | Role | Phone | + +------+ + | Ruy Chaparro MD | PCP | | + +------+ + Reason for Visit +--------+ + | Reason | Comments | +--------+ + | Other | | +--------+ + Encounter Details +--------+ + + + + | Date | Type | Department | Care Team | Description | +--------+ + + + + | 03/04/ | Telephone | [facility] | Art Red DO | Other | | 2015 | | MED CTR RADIATION | [address] | | | | | ONCOLOGY [address] | [place], [place] | | | | | [place], | [address] | | | | | [place] [address] | | | | | | [phone] | | | +--------+ + + + [...] [place] | | | | | | [address] | | | | | | | | +--------+ + + + + | 03/13/ | Office | Cardiology | Sophie Delacruz, | | | 2019 | Visit | | MD Chivo DIAZ | | | | | | [place] | | | | | | [address] | | | | | | | | +--------+ + + + + documented as of this encounter Visit Diagnoses Not on filedocumented in this encounter"
--- OUTSIDE RECORDS SUMMARY | ~2019-06-05 | XMS | Encounter Summary ---
Demographics + + + | Address | [address] | | | [place] [address] | + + + | Home Phone | | + + + | Preferred Language | Unknown | + + + | Marital Status | | + + + | Jain Affiliation | Unknown | + + + | Race | Unknown | + + + | Ethnic Group | Unknown | + + + Author + + + | Author | [facility] | | | and [place] | + + + | Organization | [facility] | | | [...] [place] | | | | | [address] | | + + + + + Care Team Providers + +------+ + | Care Prefabricated Houses Trimmer Name | Role | Phone | + [...] | | MD Prakash | | [place] [address] | | | | | [facility] | | Phone: | | | | | Procedures | | [phone] | | | | | NEW PATIENT | | Fax: | | | | | | | [phone] | +--------+--------+ + + + + Encounter Details +--------+ + + + + | Date | Type | Department | Care Team | Description | +--------+ + + + + | 10/03/ | Hospital | [facility] | Art Red, | | | 2015 | Encounter | MED CTR RADIATION | [address] | | | | | ONCOLOGY [address] | [place] | | | | | [place], | [address] | | | | | [place] [address] | | | | | | [phone] | | | +--------+ + + + [...] at Time of Discharge + + + +---------+--------+ + | Medication | Sig | Dispensed | Refills | Start | End Date | | | | | | Date | | + + + +---------+--------+ + | aspirin 81 mg | Take 81 mg by mouth | | 0 | | | | chewable tablet | Daily. | | | | | + + + +---------+--------+ + | isosorbide | Take 60 mg by mouth | | 0 | | | | mononitrate 60 mg ER | Daily. | | | | | | tablet | | | | | | + + + +---------+--------+ + | losartan (COZAAR) | Take 50 mg by mouth | | 0 | | | | 50 mg tablet | Daily. | | | | | + + + +---------+--------+ + | acetaminophen | Take 500 mg by mouth | | 0 | | | | (TYLENOL) 500 mg | every 6 hours as | | | | 7 | | tablet | needed for Pain. | | | | | | | Take 1,000mg Po prn | | | | | + + + +---------+--------+ + | carvedilol (COREG) | Take 12.5 mg by | | 0 | | | | 12.5 mg tablet | mouth 2 times daily | | | | 9 | | | (with breakfast & | | | | | | | dinner). | | | | | + + + +---------+--------+ + | cyanocobalamin | Inject 1,000 mcg | | 0 | | | | (VITAMIN B-12) 1,000 | into the muscle | | | | 6 | | mcg/mL injection | once. Every 30 days | | | | | + + + +---------+--------+ + | | Take 25 mg by mouth | | 0 | | | | hydrochlorothiazide | Daily. | | | | 9 | | 25 mg tablet | | | | | | + + + +---------+--------+ + | nitroglycerin | Place 0.4 mg under | | 0 | | | | (NITROSTAT) 0.4 mg | the tongue every 5 | | | | 7 | | SL tablet | minutes as needed | | | | | | | for Chest pain. | | | | | + + + +---------+--------+ + documented as of this encounter Plan [...] [place] | | | | | | [address] | | | | | | | | +--------+ + + + + | 03/13/ | Office | Cardiology | Sophie Delacruz, | | | 2019 | Visit | | MD Chivo DIAZ | | | | | | [place] | | | | | | [id number] | | | | | | | | +--------+ + + + + documented as of this encounter Visit Diagnoses Not on filedocumented in this encounter"
--- OUTSIDE RECORDS SUMMARY | ~2019-06-05 | XMS | Encounter Summary ---
Demographics + + + | Address | [address] | | | [place] [address] | + + + | Home Phone | | + + + | Preferred Language | Unknown | + + + | Marital Status | | + + + | Roman Catholic Affiliation | Unknown | + + [...] [place] | | | | | [address] | | + + + + + Care Team Providers + +------+ + | Care Java Developer Name | Role | Phone | + +------+ + | Ruy Chaparro MD | PCP | | + +------+ + Reason for Visit +--------+ + | Reason | Comments | +--------+ + | Other | | +--------+ + Encounter Details +--------+ + + + + | Date | Type | Department | Care Team | Description | +--------+ + + + + | 01/15/ | Telephone | [facility] | Art Red DO | Other | | 2015 | | MED CTR MEDICAL | [address] | | | | | ONCOLOGY CLINIC [address] | [place], [place] | | | | | [facility] | [address] | | | | | [place] [address] | | | | | | [phone] | | | +--------+ + + + [...] [place] | | | | | | [address] | | | | | | | | +--------+ + + + + | 03/13/ | Office | Cardiology | Sophie Delacruz, | | | 2019 | Visit | | MD Chivo DIAZ | | | | | | [place] | | | | | | [address] | | | | | | | | +--------+ + + + + documented as of this encounter Visit Diagnoses Not on filedocumented in this encounter"
--- OUTSIDE RECORDS SUMMARY | ~2019-06-05 | XMS | Encounter Summary ---
Demographics + + + | Address | [address] | | | [place] [address] | + + + | Home Phone | | + + + | Preferred Language | Unknown | + + + | Marital Status | | + + + | Scientology Affiliation | Unknown | + + + | Race | Unknown | + + + | Ethnic Group | Unknown | + + + Author + + + | Author | [facility] | | | and [place] | + + + | Organization | [facility] | | | [...] [place] | | | | | [address] | | + + + + + Care Team Providers + +------+ + | Care Assistant Professor Of English Name | Role | Phone | + [...] | | | | | | [place] [address] | [place], [place] | | | | | | Phone: | [address] Phone: | | | | | | [phone] | [phone] | | | | | | Fax: | Fax: | | | | | | [phone] | [phone] | +--------+ + + + + + [...] Cancer of | Art Holloway DO | [address] | | | | | base of | [address] | [place], | | | | | tongue (HCC) | [address] | [place] | | | | | Procedures | [place], | [address] | | | | | MRI Neck | [place] [address] | Phone: | | | | | Soft Tissue | Phone: | [phone] | | | | | Only w wo | [phone] | Fax: | | | | | Contrast | Fax: | [phone] | | | | | | [phone] | | +--------+--------+ + + + + [...] | (Primary Dx) | | | | [place], | [id number] | | | | | [place] [address] | | | | | | [phone] | | | +--------+ + + + [...] [place] | | | | | | [address] | | | | | | | | +--------+ + + + + | 03/13/ | Office | Cardiology | Sophie Delacruz, | | | 2019 | Visit | | MD Chivo DIAZ | | | | | | [place] | | | | | | [address] | | | | | | | [...]
--- OUTSIDE RECORDS SUMMARY | ~2019-06-05 | XMS | Encounter Summary ---
Demographics + + + | Address | [address] | | | [place] [address] | + + + | Home Phone | | + + + | Preferred Language | Unknown | + + + | Marital Status | | + + + | Taoism Affiliation | NON | + + + | Race | White | + + + | Ethnic Group | Not or | + + + Author + + + | Author | [facility] | + + + | Organization | [facility] | + + + | Address | Unknown | + + + | Phone | Unavailable | + + + Support + + +---------+ + | Name | Relationship | Address | Phone | + + +---------+ + | Kofia Alex | ECON | Unknown | | + + +---------+ + Care Team Providers + +------+ + | Care Interrelated Special Education Teacher Name | Role | Phone | + [...] Description | +--------+---------+ + + + | 08/27/ | Surgery | 6A Intra Op [id number] | Danny Abdullahi | [facility] | | 2015 | | [facility] | MD Jessy [address] | ROBOTIC SURGERY | | | | [place] | [address] | RESECTION OF LEFT | | | | Hospital Admitting | [place], [place] | BASE OF TONGUE | | | | Desk Located on the | [id number] | CANCER AND LEFT | | | | 9th floor | [phone] | SELECTIVE NECK | | | | [place], [place] | | DISSECTION Path X 8 | | | | [id number] | | | +--------+---------+ + + + [...] Pressure | 162/56 | 08/31/2014 12:22 PM | | | | | PDT | | + + + + + | Pulse | 63 | 08/31/2014 12:22 PM | | | | | PDT | | + + + + + | Temperature | 36.7 C (98.1 F) | 08/31/2014 2:09 PM | | | | | PDT | | + + + + + | Respiratory Rate | 24 | 08/31/2014 12:22 PM | | | | | PDT | | + + + + + | Oxygen Saturation | 95% | 08/31/2014 12:22 PM | | | | | PDT | | + + + + + | Inhaled Oxygen | - | - | | | Concentration | | | | + + + + + | Weight | 95.7 kg (210 lb 15.7 | 08/28/2014 9:10 PM | | | | oz) | PDT | | + + + + + | Height | 180.3 cm (5' 10.98") | 08/27/2014 2:25 PM | | | | | PDT | | + + + + + | Body Mass Index | 29.44 | 08/27/2014 2:25 PM | | | | | PDT | | + + + + + documented in this encounter Discharge Summaries Shaun Delatorre PA-C - 08/31/2014 10:42 AM PDT INPATIENT PHYSICIAN DISCHARGE SUMMARY Author: SHAUN DELATORRE PA-C Attending Physician: Danny Abdullahi MD, * PCP: Cong Freeman MD Admission Date: 08/27/2014 Discharge Date: 31 Aug 2014 Diagnoses Principal Final Diagnosis: 1. 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 2. Squamous cell carcinoma of the left neck. Additional Diagnoses: 1. Coronary artery disease 2. Chronic Kidney disease stage 3 Procedures 1. Suspension microlaryngoscopy. 2. Rigid esophagoscopy. 3. Transoral robotic surgery for left partial pharyngectomy. 4. Transoral robotic surgery for left partial glossectomy. 5. Left-sided selective neck dissection, levels 2 through 4. Brief Hospital Course The patient was taken to the OR on 08/27 for the above procedures. After extubation, he was re-intubated secondary to air-way obstruction from tongue edema. Thee neck incision was re -opened and sewn and was transferred to ICU for overnight observation. On post-operative da y 2, he was extubated in the morning and transfer to the floor. On the floor the patient wa s stable and without complications. The patient had stable respiratory status on room air 10 0%. The patient was evaluated by speech language pathology who made recommendations regardin g communication and diet. ENT speech recommended a full liquid diet, however patient oral in take was low secondary to pain on swallowing. Nutrition evaluated the patient and recommende d a tube feed regimen. Physical therapy and occupational therapy both evaluated the patient and determined the patient to be stable for ambulation. The surgical incisions remained dedrick n, dry, and intact. By date of discharge patient was tolerating tube feeds without abdominal pain, nausea or vomiting. The patient's pain was controlled with oral medications. Patient discharged with a DHT tube for feedings. he was informed on appropriate follow-up care and was discharged in good condition. Medications: Current Discharge Medication List START taking these medications Details acetaminophen 650 mg/20.3 mL oral suspension 10.15-20.3 mL by feeding tube route every four hours as needed. chlorhexidine 0.12 % mucous membrane mouthwash Take 15 mL by mouth every six hours. Swish u ndiluted oral rinse around in mouth for 30 seconds, then spit. Do not swallow. Qty: 473 mL docusate sodium 50 mg/5 mL oral liquid 5 mL by feeding tube route two times daily. Qty: 10 mL oxyCODONE, immediate release, 5 mg/5 mL oral solution 5-15 mL by feeding tube route every t hree hours as needed for moderate pain. Qty: 300 mL, Refills: 0 polyethylene glycol 17 gram/dose oral powder 17 g by feeding tube route once daily. Qty: 119 g senna 8.8 mg/5 mL oral syrup 5 mL by feeding tube route two times daily. Qty: 237 mL CONTINUE these medications which have CHANGED or have new prescriptions Details allopurinol 300 mg oral tablet 0.5 tablets by feeding tube route once daily. aspirin chewable 81 mg oral tablet,chewable 1 tablet by feeding tube route once daily. carvedilol 12.5 mg oral tablet 1 tablet by feeding tube route two times daily. Administer w ith food. clopidogrel 75 mg oral tablet 1 tablet by feeding tube route once daily. hydrochlorothiazide 25 mg oral tablet 1 tablet by feeding tube route once daily. losartan 50 mg oral tablet 1 tablet by feeding tube route once daily. !! ondansetron 4 mg oral tablet 1 tablet by feeding tube route every eight hours as needed. (20 tabs, no refills) simvastatin 10 mg oral tablet 1 tablet by feeding tube route once daily in the evening. !! - Potential duplicate medications found. Please discuss with provider. CONTINUE these medications which have NOT CHANGED Details CYANOCOBALAMIN, VITAMIN B-12, (VITAMIN B-12 INJ) by injection route every thirty days. isosorbide mononitrate CR 30 mg oral tablet extended release 24 hr Take 30 mg by mouth once daily. nitroglycerin 0.4 mg sublingual tablet, sublingual Place 0.4 mg under tongue every five min utes as needed for chest pain. Place under tongue and allow to dissolve. Administer every 5 minutes, max of 3 doses in 15 minutes. tamsulosin 0.4 mg oral capsule,extended release 24hr Take 0.4 mg via feeding tube. STOP taking these medications acetaminophen 500 mg oral tablet Comments: Reason for Stopping: FOLIC ACID/MULTIVITS-MIN/LUT (CENTRUM SILVER ORAL) Comments: Reason for Stopping: oxyCODONE, immediate release, 5 mg oral tablet Comments: Reason for Stopping: Tube Feeding Jevity 1.2@360mL x 5/day with 175mL x 5/day free H2O flushes Diet Regular Full liquid diet as tolerated Future appointments: Please note you have a scheduled follow-up appointment with Dr. Abdullahi at the [facility] on September 06 at 10am. Consults obtained:ENT speech, Nutrition, PT Pertinent microbiology/pathology: SURGICAL PATHOLOGY SOURCE OF SPECIMEN:A Left baseof tongue and tonsil SOURCE OF SPECIMEN:B Lateral margin FS SOURCE OF SPECIMEN:C Anterior margin FS SOURCE OF SPECIMEN:D Deep margin FS SOURCE OF SPECIMEN:E Lateral deep margin FS SOURCE OF SPECIMEN:F Left neck level 2A SOURCE OF SPECIMEN:G Left neck level 3 SOURCE OF SPECIMEN:H Left neck level 4 Final Pathologic Diagnosis: A: Base of tongue and tonsil, left, partial pharyngectomy: - Invasive nonkeratinizing squamous cell carcinoma (2.4 cm), moderately differentiated - Positive for angiolymphatic invasion - Perineural invasion not identified - Cauterized tumor extends to disrupted tissue edge (please see comment) - Remaining mucosal and soft tissue margins negative for malignancy - AJCC pathologic stage (7th edition): pT2 N1 B: Left base of tongue, lateral margin, excision: - Fibroadipose tissue and skeletal muscle, negative for malignancy C: Left base of tongue, anterior margin, excision: - Adipose tissue and skeletal muscle, negative for malignancy D: Left base of tongue, deep margin, excision: - Skeletal muscle and minor salivary gland, negative for malignancy E: Left base of tongue, lateral deep margin, excision: - Fibromuscular tissue, negative for malignancy F: Lymph nodes, left neck level 2A, dissection: - Metastatic squamous cell carcinoma (2.5cm) involving one of six lymph nodes (1/6) - Positive for focal extranodal extension G: Lymph nodes, left neck level 3, dissection: - Five lymph nodes, negative for malignancy (0/5) H: Lymph node, left neck level 4, biopsy: - One lymph node, negative for malignancy (0/1) Comment: The partial pharyngectomy specimen (part A) demonstrates cauterized tumor extending to the torn and disrupted tissue edge at anterior/base of tongue/deep corresponding to focus identified by the surgeon. By report, additional biopsies were taken from tissue adjacent to the torn focus and submitted as parts B-E. Please see parts B-E for additional/final margin information. Case seen by: Nicho Rahman M.D./Surgical Pathology Fellow Ila Buckner M.D./Pathologist /rdl Vitals on discharge: Ht 1.803 m (5' 10.98"), Wt 95.7 kg (210 lb 15.7 oz), BP 149/47, Pulse 62, Temperature 36 C (96.8 F), RR 16, SpO2 96%, BMI 29.44 kg/(m^2). Physical Exam on discharge: General: awake, alert in NAD HEENT: DHT intact Neck: soft, flat, no hematoma, no crepitus Intraoral lesion:clean/dry/intact, soft Discharging Physician: SHAUN DELATORRE PA-C Attending Physician: Danny Abdullahi MD, * I spent >30 minutes with Mr. Johnson. Greater than 50% of this time was spent counseling him a nd coordinating his care. SHAUN DELATORRE PA-C Department of Otolaryngology/Head and Neck Surgery Mail Code [id number] [place] [address] documented in thi s encounter Discharge Instructions Instructions Yuliana Lancaster - 08/31/2014 Additional Instructions: Patient discharged from hospital with the accompany of his to his home in [facility]. Patient left with all his belongings, scripts, and tube feed supplie s. demonstrated using teach back how to do tube feeds and give medications through the dobhoff. IVs are removed prior to discharge, tips intact. Assessed for pain and medicated pr ior to discharge. Reviewed discharged instructions, follow up appointments, and education an d care instructions. Discharge Nurse: YULIANA LANCASTER Date: 08/31/2014 Discharge Time: 11:56 AM documented in this encounter Medications at Time of Discharge + + + +---------+ + + | Medication | Sig | Dispensed | Refills | Start | End Date | | | | | | Date | | + + + +---------+ + + | acetaminophen 650 | 10.15-20.3 mL by | 400 mL | 0 | 04/03/ | | | mg/20.3 mL oral | feeding tube route | | | 15 | | | suspension | every four hours as | | | | | | | needed. | | | | | + + + +---------+ + + | allopurinol 300 mg | 0.5 tablets by | | 0 | 09/01/19 | | | oral tablet | feeding tube route | | | 15 | | | | once daily. | | | | | + + + +---------+ + + | aspirin chewable | 1 tablet by feeding | | 0 | 09/01/19 | | | 81 mg oral | tube route once | | | 15 | | | tablet,chewable | daily. | | | | | + + + +---------+ + + | carvedilol 12.5 mg | 1 tablet by feeding | | 0 | 09/01/19 | | | oral tablet | tube route two times | | | 15 | | | | daily. Administer | | | | | | | with food. | | | | | + + + +---------+ + + | clopidogrel 75 mg | 1 tablet by feeding | | 0 | 09/02/19 | | | oral tablet | tube route once | | | 15 | | | | daily. | | | | | + + + +---------+ + + | CYANOCOBALAMIN, | by injection route | | 0 | | | | VITAMIN B-12, | every thirty days. | | | | | | (VITAMIN B-12 INJ) | | | | | | + + + +---------+ + + | docusate sodium 50 | 5 mL by feeding tube | 120 mL | 0 | 09/01/19 | | | mg/5 mL oral liquid | route two times | | | 15 | | | | daily. | | | | | + + + +---------+ + + | | 1 tablet by feeding | | 0 | 04 | | | hydrochlorothiazide | tube route once | | | 15 | | | 25 mg oral tablet | daily. | | | | | + + + +---------+ + + | isosorbide | Take 30 mg by mouth | | 0 | | | | mononitrate CR 30 mg | once daily. | | | | | | oral tablet | | | | | | | extended release 24 | | | | | | | hr | | | | | | + + + +---------+ + + | losartan 50 mg | 1 tablet by feeding | | 0 | 08/31/ | | | oral tablet | tube route once | | | 15 | | | | daily. | | | | | + + + +---------+ + + | nitroglycerin 0.4 | Place 0.4 mg under | | 0 | | | | mg sublingual | tongue every five | | | | | | tablet, sublingual | minutes as [...] 15 minutes. | | | | | + + + +---------+ + + | ondansetron 4 mg | Take 1 tablet by | 20 | 0 | 09/01/19 | | | oral tablet | feeding tube route | tablet | | 15 | | | | every twelve hours | | | | | | | as needed. | | | | | + + + +---------+ + + | oxyCODONE, | Take 5 to 15 mL by | 300 mL | 0 | 20 | | | immediate release, 5 | feeding tube route | | | 15 | | | mg/5 mL oral | every three hours as | | | | | | solution | needed for moderate | | | | | | | pain. | | | | | + + + +---------+ + + | polyethylene | 17 g by feeding tube | 119 g | 0 | 09/01/19 | | | glycol 17 gram/dose | route once daily. | | | 15 | | | oral powder | | | | | | + + + +---------+ + + | senna 8.8 mg/5 mL | 5 mL by feeding tube | 237 mL | 0 | 09/01/19 | | | oral syrup | route two times | | | 15 | | | | daily. | | | | | + + + +---------+ + + | simvastatin 10 mg | 1 tablet by feeding | | 0 | 09/01/19 | | | oral tablet | tube route once | | | 15 | | | | daily in the | | | | | | | evening. | | | | | + + + +---------+ + + | tamsulosin 0.4 mg | Take 0.4 mg by mouth | | 0 | | | | oral | once daily. | | | | | | capsule,extended | | | | | | | release 24hr | | | | | | + + + +---------+ + + documented as of this encounter Progress Notes Ti Montano CCC-GLUING MACHINE FEEDER - 08/31/2014 1:50 PM PDT INPATIENT ENT SPEECH PATHOLOGY NOTE: HISTORY: Skyler Johnson is a 79 y.o. male patient with a history of T2N1M0 Left base of tongue cancer . The patient is s/p suspension microlaryngoscopy, rigid esophagoscopy, Transoral robotic s urgery (TORS) for left partial pharyngectomy and left partial glossectomy and Left-sided samantha ective neck dissection, levels 2 through 4 on 08/27/2014. SUBJECTIVE: Mr. Johnson "Bala" this afternoon prior to his discharge. Pt was accompanied by his daughter. Pt had received 5 mg of oxycodone 1 hour prior, but he reported having persistent significa nt pain. RN aware - gave additional 5 mg of oxycodone. Per RN and pt's daughter, pt taking v estela little PO yesterday and today. PAIN SCALES: Worst pain level yesterday: 3 (per patient report) Pain at the start of the session: 7 Pain at the end of the session: 6 DIETARY STATUS: Full Liquids started 08/29- taking very little, mostly sips of water only. TF s via DHT. SOCIAL HISTORY: The patient currently lives in [facility], [place] with his Allie. 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 He reports that he has recently been wor indu to remodel their home and described himself as a "frustrated aranda." COMMUNICATION/SPEECH STATUS: The patient communicates verbally. Speech quality was non-dysarthric but with moderate cul- de-sac resonance and little jaw opening, presumably due to pain; Usually Understandable (fac e-to-face contact necessary - PSS-Speech 50). Voice quality was clear and strong. The patien t is hard of hearing, but functional with bilateral hearing aids in place and loud voicing b y provider. In terms of respiration, the patient is breathing easily at rest on room air. PSS SCALES: PSS-Normalcy of Diet score: 20, warm liquids. PSS-Eating in Public score: N/A PSS -Speech: Usually understandable (PSS-Speech 50). ORAL-MOTOR EXAMINATION: Pt would not cooperate with a full oral motor exam because of pain. Jaw opening was signifi cantly reduced. Lip strength and ROM within normal limits. Portion of oral tongue visualized appeared very dry and with white coating. Thick, stranding secretions in oral cavity. Laryn geal elevation was complete to palpation. Cough strength was good. CLINICAL SWALLOW TRIALS: The patient was trialed with ice chips x2. Oral phase was timely and coordinated. AP transi t was complete. No anterior loss of bolus. Initiation of pharyngeal swallow appeared timely. Laryngeal elevation was complete to palpation. Patient continues to demonstrate wincing, fr equent throat-clearing between swallows and trials, and requires multiple swallows per bolus . No wet/gurgly voice or coughing/choking with liquids. Of note, patient coughed up brown/d ark red tinged thin secretions x2 over course of session. Per RN, medical team is aware. TREATMENT AND EDUCATION: Patient to discharge this afternoon with Dobhoff tube. RN has done tube feed teaching with the patient and his . Reviewed the anticipated course for postoperative pain and swellin g as they pertain to swallowing, as well as the process of diet advancement. Encouraged rc ent to do swallow practice daily at home initally with a variety of liquids for stimulation. Discussed liquids will be easiest to swallow initially, but patient can advance his diet as tolerated. Also advised patient to coordinate swallow practice about 30 minutes after takin g pain medication to optimize practice. Patient and his indicated their understanding and are in agreement with the plan. ASSESSMENT: Patient with post-operative oropharyngeal dysphagia and mild odynophagia. Inefficient swall ow for anything more advanced than liquids. Consistent throat clear with thin liquids, but n o clinical s/sx of aspiration afternoon. Appears appropriate to continue current diet and a dvance as tolerated. PLAN: Continue full liquids for therapeutic intake with strict aspiration precautions. Advance di et as tolerated. Pt to discharge with TFs via [facility] for primary nutrition/hydration. [facility] TRACY RIDLEY-[facility] [address]M [address] Mailcode: [id number] [place] [address] hRadha mariscal, RN - 08/31/2014 1:41 PM PDTPrecepting student RN and assisted with both discharge note & instructions. I concur with discharge summary & instructions. Reviewed AVS with patient a nd concur with assessments and teaching. Ti Munson CCC-GLUING MACHINE FEEDER - 08/30/2014 4:30 PM PDT INPATIENT ENT SPEECH PATHOLOGY NOTE: HISTORY: Skyler Johnson is a 79 y.o. male patient with a history of T2N1M0 Left base of tongue cancer . The patient is s/p suspension microlaryngoscopy, rigid esophagoscopy, Transoral robotic s urgery (TORS) for left partial pharyngectomy and left partial glossectomy and Left-sided samantha ective neck dissection, levels 2 through 4 on 08/27/2014. SUBJECTIVE: Mr. Johnson "Bala" awake, but somnolent with his at bedside. He denied any significant p ain, but noted discomfort along his L ear and back of head. Reports taking occasional ice ch ips throughout the day without much difficulty, other than persistent globus sensation. Pt v estela hesitant to work with GLUING MACHINE FEEDER this afternoon, but ultimately agreed to do so for a short per iod of time. PAIN SCALES: Worst pain level yesterday: 0 (per patient report) Pain at the start of the session: 0 Pain at the end of the session: 0 DIETARY STATUS: Full Liquids started yesterday - mostly taking sips of water only. TFs via DHT. SOCIAL HISTORY: The patient currently lives in [facility], [place] with his Allie. 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 He reports that he has recently been wor indu to remodel their home and described himself as a "frustrated aranda." COMMUNICATION/SPEECH STATUS: The patient communicates verbally. Speech quality was non-dysarthric but with moderate cul- de-sac resonance and Usually understandable (PSS-Speech 75). Voice quality was clear and str alireza. The patient is hard of hearing, but functional with bilateral hearing aids in place and loud voicing by provider. In terms of respiration, the patient is breathing easily at rest on room air. Continues to manage secretions well. PSS SCALES: PSS-Normalcy of Diet score: 20, warm liquids. PSS-Eating in Public score: N/A PSS -Speech: Usually understandable (PSS-Speech 75). ORAL-MOTOR EXAMINATION: The patient has an upper denture and [place] lower teeth in good repair. Noted lingual and palatal edema and bruising. Laceration on the ventral surface of the tongue. Velar elevation appreciated. Oral tongue strength and range of motion were functional. Lip strength was nor mal. Range of motion of the lips was complete. Jaw strength was normal. Range of motion of t he jaw was complete. Laryngeal elevation was complete to palpation. Cough strength was good. CLINICAL SWALLOW TRIALS: The patient was trialed with ice chips x3, sips of water x3. Oral phase was timely and coor dinated. AP transit was complete. No anterior loss of bolus. Initiation of pharyngeal swallo w appeared timely. Laryngeal elevation was complete to palpation. Patient continues to demon strate frequent throat-clearing between swallows and trials, but no wet/gurgly voice or coug edwige/choking with liquids. Patient required 2-3 swallows for ice chips and water. TREATMENT AND EDUCATION: Patient anticipated to discharge tomorrow with Dobhoff tube. RN has done tube feed teaching with the patient and his . Reviewed the process of diet advancement and TF weaning and the reasons behind discharge with DHT, including the infeasibility of managing the burden of nutrition and hydration solely by mouth in the setting of postoperative dysphagia and odyno phagia. Patient and indicated their understanding; did not have any questions. ASSESSMENT: Patient with post-operative oropharyngeal dysphagia and mild odynophagia. Inefficient swall ow for anything more advanced than liquids. Consistent throat clear with thin liquids, but n o clinical s/sx of aspiration afternoon. Appears appropriate to continue current diet. PLAN: Continue full liquids for therapeutic intake with strict aspiration precautions. Continue TFs via DHT. -At this point, it seems unlikely patient will take adequate PO for DHT removal prior to D C. Pt anticipated to discharge tomorrow. We will attempt to see him tomorrow am prior to disch arge. TRACY RIDLEY-[facility] [address]I [address] [facility] Mailcode: [id number] [place] [address] Danny Greenberg MD - 08/30/2014 9:09 AM KAYI examined the patient on daily rounds and agree with the as sessment and plan as documented in the resident's note. DANNY ABDULLAHI MD [facility] [address]K [address] Mailcode: [id number] [place], [place] [id number] Shaun Ham PA-C - 08/30/2014 9:09 AM PDT Head and Neck Surgery Inpatient Daily Progress Note: Author: SHAUN DELATORRE PA-C Attending Physician: Danny Abdullahi MD, * Primary Care Provider: Cong Freeman MD Admission Date: 08/27/2014 SKYLER JOHNSON, [id number] Hospital Day #3 ID: Mr. Skyler Johnson is a 79 y/o male with squmous cell carcinoma of left tongue who under went the following procedure. PROCEDURES: 1. Suspension microlaryngoscopy. 2. Rigid esophagoscopy. 3. Transoral robotic surgery for left partial pharyngectomy. 4. Transoral robotic surgery for left partial glossectomy. 5. Left-sided selective neck dissection, levels 2 through 4. SUBJECTIVE INTERVAL EVENTS: -Minimal PO intake. Tolerating TFs bolus -Removed drain this am -Renal function up but stable Cr.1.61 and BUN 41 OBJECTIVE Last 24 hour min/max Temp: 36.3 C (97.3 F) Temp Min: 36.3 C (97.3 F) Max: 36.7 C (98.1 F) Pulse: 54 Pulse Min: 52 Max: 58 Resp: 16 Resp Min: 16 Max: 16 BP: 147/54 mmHg BP Min: 134/44 Max: 147/54 SpO2: 94 % SpO2 Min: 91 % Max: 98 % Body mass index is 29.44 kg/(m^2). Intake/Output Summary (Last 24 hours) at 08/30/14 0900 Last data filed at 08/30/14 0730 Gross per 24 hour Intake 1497.5 ml Output 1820 ml Net -322.5 ml PHYSICAL EXAM: General: awake, alert in NAD HEENT: DHT intact Neck: soft, flat, no hematoma Intraoral lesion:clean/dry/intact, soft LABS: Recent Labs 08/28/14 1410 08/29/14 0524 08/29/14 [id number]/14220208/30/14 0519 08/30/14 0813 NA 142 -- 142 -- 144 -- -- 144 | 144 -- K 4.8 -- 4.5 -- 4.9 -- -- 4.6 | 4.6 -- CL 110* -- 111* -- 115* -- -- 112* | 112* -- BICARB 25 -- 23 -- 18* -- -- 24 | 24 -- BUN 32* -- 39* -- 41* -- -- 41* | 41* -- CR 1.82* -- 1.82* -- 1.72* -- -- 1.61* | 1.61* -- GLU 134* < > 195* < > 153* < > 185* 153* | 153* 133* CA 8.4* -- 8.5* -- 8.4* -- -- 8.2* | 8.2* -- ALB 3.1* -- 3.2* -- -- -- -- 2.7* -- < > = values in this interval not displayed. Recent Labs 08/28/14 1410 08/29/14 0524 08/30/14 0519 MG 2.7* 2.6* 2.4 Recent Labs 08/28/14 0205 08/29/14 0524 08/30/14 0519 WBC 13.07* 14.16* 12.14* RBC 3.48* 3.60* 3.29* HB 10.8* 11.4* 10.3* HCT 33.2* 34.6* 31.5* PLT 149* 167 155 CBG's Recent Labs 08/29/14 0524 08/29/14 0604 08/29/14 0658 08/29/14 0811 08/29/14 1256 08/29/14 1706 08/29/14 1737 08/29/14220208/30/14 0519 08/30/14 0813 GLU 195* 190* 112* 129* 198* 153* 169* 185* 153* | 153* 133* ASSESSMENT/PLAN: Skyler Johnson is a 79 y.o. male with squmous cell carcinoma of left tongue whose intra-oper ative course was complicated by reintubation 2/2 airway obstruction from airway edema who is HD# 3, POD#3 S/P left TORS partial glossectomy and L neck dissection whose post-operative c ourse was complicated by re-intubation 2/2 tongue edema and transfer to ICU. Transferred to floor yesterday and stable. 1. Continue post-op pain managment 2. Will re-start his home does Plavix and Aspirin on POD 5 3. Continue home dose Allopurinol for Gout, Lipitor for HLD, Carvedilol and prn Hydralazi ne for HTN. Will hold off on home dose Losartan, HCTZ 2/2 his renal function. Will hold off on Flomax unable to give via feeding tube and patient is voiding with no issues 4. ENT speech to follow for swallowing. Continue full liquid diet and TFs for now. Will f /u with ENT speech recs and adjust diet as needed. 5. BG's 153-198. Continue CBG's and SSI (moderate) 6. Renal function stable 2/2 h/o of CRF will continue to monitor renal function and hold o ff on any IV fluids. 7. Others: continue bowel regimen, ambulation, pulmonary hygiene 8. Dispo: pending tube feeding teaching, diet upgrade and possible DHT removal, renal func tion improvement prior to d/c. Anticipate d/c in 1-2 days. SHAUN DELATORRE PA-C Otolaryngology-Head and Neck Surgery [facility] Pager [phone] oLora engle, [facility]-GLUING MACHINE FEEDER - 08/30/2014 8:21 AM PDT INPATIENT ENT SPEECH PATHOLOGY NOTE: HISTORY: Skyler Johnson is a 79 y.o. male patient with a history of T2N1M0 Left base of tongue cancer . The patient is s/p suspension microlaryngoscopy, rigid esophagoscopy, Transoral robotic s urgery (TORS) for left partial pharyngectomy and left partial glossectomy and Left-sided samantha ective neck dissection, levels 2 through 4 on 08/27/2014. SUBJECTIVE: Mr. Johnson "Bala" is awake and alert this morning with his at bedside. He denies any cu rrent pain or difficulty breathing. Reports he is swallowing sips of water without difficult y. Does complain of feeling of a lump in his throat that he cannot cough up nor swallow down . He is using oral suction as needed. He is ready and willing to work with GLUING MACHINE FEEDER this morning. Would like to DC without feeding tube. PAIN SCALES: Worst pain level yesterday: 0 (per patient report) Pain at the start of the session: 0 Pain at the end of the session: 5 DIETARY STATUS: Full Liquids started yesterday - mostly taking sips of water only. TFs via DHT. SOCIAL HISTORY: The patient currently lives in [facility], [place] with his Allie. 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 He reports that he has recently been wor indu to remodel their home and described himself as a "frustrated aranda." COMMUNICATION/SPEECH STATUS: The patient communicates verbally. Speech quality was normal and always understandable (PSS -Speech 100). Voice quality was clear and strong. In terms of respiration, the patient is br eathing easily at rest on room air. Secretion management appears good today. The patient is hard of hearing however, functional with bilateral hearing aids in place and loud voicing by provider. PSS SCALES: PSS-Normalcy of Diet score: 20, warm liquids. PSS-Eating in Public score: N/A PSS -Speech: Always understandable (PSS-Speech 100). ORAL-MOTOR EXAMINATION: The patient has an upper denture and [place] lower teeth in good repair. Noted lingual and palatal edema and bruising. Laceration on the ventral surface of the tongue. Velar elevation appreciated. Oral tongue strength and range of motion were functional. Lip strength was nor mal. Range of motion of the lips was complete. Jaw strength was normal. Range of motion of t he jaw was complete. Laryngeal elevation was complete to palpation. Cough strength was good. CLINICAL SWALLOW TRIALS: The patient was trialed with ice chips x1, sips of water x10, sips of Boost via straw x4, h chcf-tsp of apple sauce x2. Oral phase was timely and coordinated. AP transit was complete wi th no evidence of oral residue post-swallow. Initiation of pharyngeal swallow appeared timel y. Laryngeal elevation was complete to palpation. Patient with frequent throat-clearing betw een swallows and trials, but no wet/gurgly voice or coughing/choking with liquids. Patient r equired 1-2 swallows for water, 2-3 swallows for Boost and 5+ swallows for apple sauce. Evid ence of increased pharyngeal residue with purees including wet/gurgly voice and increased th roat-clearing. Patient requested to stop PO trials at that time due to discomfort and fatigu e. TREATMENT AND EDUCATION: Reviewed basic rehabilitation course and role of GLUING MACHINE FEEDER. Reviewed all aspiration precautions a nd dysphagia strategies in detail. Education provided re: BOT swelling and globus sensation. Reviewed purpose and use of DHT. Also explained process of diet advancement and TF weaning, and the importance of both safe and efficient PO intake. Discussed burden of nutrition and hydration by mouth. Patient and indicated their understanding; did not have any questio ns. ASSESSMENT: Patient with post-operative oropharyngeal dysphagia and mild odynophagia. Inefficient swall ow for anything more advanced than liquids, increased throat-clearing and coughing with pure es. No clinical s/sx of aspiration with liquids this morning, but patient not inclined to ta ke a significant quantity. Appears appropriate to continue current diet. PLAN: Continue full liquids for therapeutic intake with strict aspiration precautions. Continue TFs via DHT. -At this point, it seems unlikely patient will take adequate PO for DHT removal prior to D C. We will continue to follow during hospitalization per our usual protocol. Lora Grande MS, [facility]-GLUING MACHINE FEEDER Speech-Language Pathologist [facility] Dept. of Otolaryngology, [id number] [place] [address] Pager: [phone] signed by Lora Grande CCC-GLUING MACHINE FEEDER at 08/30/2014 8:57 AM Steph Rosas CCC-GLUING MACHINE FEEDER - 08/29/2014 11:17 AM PDT[facility]: SUBJECTIVE: Skyler Johnson is a 79 y.o. male patient with a history of T2N1M0 Left base of tongue cancer . The patient is s/p suspension microlaryngoscopy, rigid esophagoscopy, Transoral robotic s urgery (TORS) for left partial pharyngectomy and left partial glossectomy and Left-sided samantha ective neck dissection, levels 2 through 4 on 08/27/2014. The patient remained required reint ubation post-operatively and remained intubated 08/28. Patient now extubated and appropriate for swallow evaluation this morning. Mr. Johnson is awake and alert this morning with his at bedside. He denies any current pa in or difficulty breathing. He reports significant difficulty swallowing noting that he does not feel like he is able to do so. He is using oral suction for secretion management. He is ready and willing to work with GLUING MACHINE FEEDER this morning. PAIN SCALES: Worst pain level yesterday: 0 Pain at the start of the session: 0 Pain at the end of the session: 3 DIETARY STATUS: Current diet: The patient is currently NPO with DHT in place for all nutrition/hydration/me ds pending swallow evaluation. SOCIAL HISTORY: The patient currently lives in [facility], [place] with his Allie. 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 He reports that he has recently been wor indu to remodel their home and described himself as a "frustrated aranda." COMMUNICATION/SPEECH STATUS: The patient communicates verbally. Speech quality was noted to be hoarse, not dysarthric an d always understandable (PSS-Speech 100). Voice quality was clear and strong. In terms of re spiration, the patient is breathing easily at rest on room air with stable O2 sats across se ssion, 95-97%. Patient with mild throat clear at baseline intermittently across session with intermittent productive suctioning of secretions. The patient is hard of hearing however, functional with bilateral hearing aids in place and loud voicing by provider. PSS SCALES: PSS-Normalcy of Diet score: 0, nonoral feed (tube feeding only). PSS-Eating in Public score: N/A. PSS -Speech: Always understandable (PSS-Speech 100). ORAL-MOTOR EXAMINATION: The patient has an upper denture and [place] lower teeth in good repair. Noted lingual and palatal edema and bruising. Velar elevation appreciated. Oral tongue strength and range of motion were functional however, guarded. Lip strength was normal. Range of motion of the lip s was complete. Jaw strength was normal. Range of motion of the jaw was complete. Laryngeal elevation was complete to palpation. Cough strength was good. CLINICAL SWALLOW TRIALS: The patient was trialed with ice chips x4, tsp of water x4, sips of water via covered cup ( lid) x7. Oral control and manipulation were good. AP transit midlly labored but functional. Laryngeal elevation appeared mildly delayed (sluggish to initiation) however, was complete to palpation. Patient with intermittent, delayed throat clearing which was not productive (c onsistent with baseline). No audible residue or wet vocal quality. No overt coughing. No pollo nge in respiration. No s/sx of aspiration were observed. TREATMENT AND EDUCATION: Reviewed basic rehabilitation course and role of GLUING MACHINE FEEDER. Reviewed all aspiration precautions a nd dysphagia strategies in detail. Reviewed purpose and use of DHT. Also discussed the impor tance of secretion management and strategies to do so. Answered all questions to the best of my ability. ASSESSMENT: Patient with post-operative oropharyngeal dysphagia and mild odynophagia. No clinical s/sx of aspiration with limited PO trials this morning. Patient appears appropriate to start recr etational PO program however, will continue to require TFs at this time. RECS: Continue DHT primary for nutrition/hydration/meds. Initiate PO of ice chips and thin liquids with aspiration precautions and dysphagia strateg ies: -awake/alert -upright posture -small, controlled sips -multiple swallows -suction residue as needed Continue to monitor s/sx of aspiration and surgical site. PLAN: We will follow-up during IP stay per our protocol. Steph Trejo M.S., CCC-GLUING MACHINE FEEDER Speech-Language Pathologist [facility] Otolaryngology, Head & Neck Surgery [facility] Shaun Ham PA-C - 08/29/2014 8:53 AM PDT . Head and Neck Surgery Inpatient Daily Progress Note: Author: SHAUN DELATORRE PA-C Attending Physician: Danny Abdullahi MD, * Primary Care Provider: Cong Freeman MD Admission Date: 08/27/2014 SKYLER JOHNSON, [id number] Hospital Day #2 ID: Mr. Skyler Johnson is a 79 y/o male with squmous cell carcinoma of left tongue who under went the following procedure. PROCEDURES: 1. Suspension microlaryngoscopy. 2. Rigid esophagoscopy. 3. Transoral robotic surgery for left partial pharyngectomy. 4. Transoral robotic surgery for left partial glossectomy. 5. Left-sided selective neck dissection, levels 2 through 4. SUBJECTIVE INTERVAL EVENTS: -transferred from ICU to floor yesterday -NPO for now, awaiting ENT speech recs. Tolerating TFs (cont.) -d/c insulin gtt and started on sliding scale -BUN up from 32 to 39 and Cr up but stable1.82 this am. UOP 3.2L -WBC up from 13 to 14 this am OBJECTIVE Last 24 hour min/max Temp: 36.4 C (97.5 F) Temp Min: 36.4 C (97.5 F) Max: 36.9 C (98.4 F) Pulse: 59 Pulse Min: 57 Max: 69 Resp: 16 Resp Min: 9 Max: 16 BP: 131/46 mmHg BP Min: 113/41 Max: 145/55 SpO2: 93 % SpO2 Min: 92 % Max: 100 % Body mass index is 29.44 kg/(m^2). Intake/Output Summary (Last 24 hours) at 08/29/14 0853 Last data filed at 08/29/14 0800 Gross per 24 hour Intake 1401 ml Output 3730 ml Net -2329 ml ALLI: 40, SS PHYSICAL EXAM: General: intubated HEENT: Neck: soft, flat, no hematoma Intraoral lesion:clean/dry/intact, soft Drains: ALLI x 1 to the neck holding suction with serosanguinous output LABS: Recent Labs 08/28/14 0205 08/28/14 1410 08/29/14 0524 08/29/14 0604 08/29/14 0658 08/29/14 0811 NA 141 -- 142 -- 142 -- -- -- K 4.5 -- 4.8 -- 4.5 -- -- -- CL 111* -- 110* -- 111* -- -- -- BICARB 22 -- 25 -- 23 -- -- -- BUN 27* -- 32* -- 39* -- -- -- CR 1.55* -- 1.82* -- 1.82* -- -- -- GLU 164* < > 134* < > 195* 190* 112* 129* CA 7.5* -- 8.4* -- 8.5* -- -- -- ALB 2.7* -- 3.1* -- 3.2* -- -- -- < > = values in this interval not displayed. Recent Labs 08/28/14 0205 08/28/14 1410 08/29/14 0524 MG 1.5* 2.7* 2.6* Recent Labs 08/27/14201208/28/14 0205 08/29/14 0524 WBC 13.22* 13.07* 14.16* RBC 3.62* 3.48* 3.60* HB 11.4* 10.8* 11.4* HCT 34.9* 33.2* 34.6* PLT 156 149* 167 CBG's Recent Labs 08/28/14 1944 08/28/14 2155 08/28/14 2353 08/29/14 0239 08/29/14 0357 08/29/14 0504 08/29/14 0524 08/29/14 0604 08/29/14 0658 08/29/14 0811 GLU 146* 159* 152* 185* 206* 191* 195* 190* 112* 129* ASSESSMENT/PLAN: Skyler Johnson is a 79 y.o. male with squmous cell carcinoma of left tongue whose intra-oper ative course was complicated by reintubation 2/2 airway obstruction from airway edema who is HD# 2, POD#2 S/P left TORS partial glossectomy and L neck dissection whose post-operative c ourse was complicated by re-intubation 2/2 tongue edema and transfer to ICU. Transferred to floor yesterday and stable. 1. Continue post-op pain managment 2. Will re-start his home does Plavix and Aspirin on POD 5 3. Continue ALLI drain , milk, and empty q 8 hrs 4. Continue home dose Allopurinol for Gout, Lipitor for HLD, Carvedilol and prn Hydralazi ne for HTN. Will hold off on home dose Losartan, HCTZ 2/2 his renal function. Will hold off on Flomax unable to give via feeding tube and patient is voiding for now. 5. ENT speech to follow for swallowing. Continue NPO and TFs for now. Will f/u with ENT s peech recs and adjust diet as needed. 6. D/c insulin gtt. On moderate SSI. BG's running 136-206 probably 2/2 be on steroid. Gilbert pope continue to monitor CBG's. 7. Renal function 2/2 h/o of CRF will continue to monitor renal function and discuss with team for any IV fluids. 8. Others: continue bowel regimen, ambulation, pulmonary hygiene SHAUN DELATORRE PA-C Otolaryngology-Head and Neck Surgery [facility] Pager [phone] Galen Mijares M D,PhD - 08/28/2014 4:10 PM PDTDue to history of difficult airway extraordinary caution was taken with extubation. Following 24 hours of dexamethasone treatment a cuff leak test was p reformed. Cuff leak was verified. A spontaneous breathing trial was preformed, passed at 3 0 minutes and 60 minutes. Prior to proceeding with extubation bronchoscope, CMAC, Mike ET T, LMA, oral and nasal airways were brought to the patient's room. Prior to extubation the pharynx/trachea were anesthetized with 3 ml of 4% lidociane. A tube exchanger was introduce d through the existing ETT and secured at 30 cm at the orifice of the ETT. The ETT was walker yamil. The tube exchanger remained in place. The patient was hemodynamically stable and maint ained an SpO2 95-100% with supplemental oxygen by PR. The tube exchanger was removed after 10 minutes. Galen Mijares MD,PhD - 08/28/2014 3:26 PM PDTFormatting of this note might be different from t nuha original. Cardiovascular Intensive Care Unit Team Progress Note CVICU D1 Assigned #[id number] ICU Admission Reason Most Recent Value ICU Admission reason airway edema filed at 08/27/2014 1832 Documentation Date - WedAugust 27, 2014 1828 Procedure Date Day of Procedure 08/27/14 ENT ENT ENT ENT Procedures Other ENT Other TORS partial glossectomy and L neck dissection 2027 ENT ENT Procedures Other ENT Other TORS partial pharyngectomy HPI Mr. Johnson is an 79 year old male with hx of CAD s/p [place] in 2013, HTN, CKD, and hx of diffic ult airway who underwent a TORS hemiglossectomy and neck dissection for SCC of the base of h is tongue. At the end of the procedure he was noted to have some airway obstruction which w as resolved with a nasal trumpet and some nasal bleeding. He was reintubated orally. After reintubation he was noted to have airway edema and brought to the ICU intubated and sedated . Mr. Johnson's [place] in 2013 was medically managed and his NSTEMI. TTE on 08/21/13 showed an EF of 65-70% and no WMA. Stress thallium test on 08/30/2013 showed a small defect in apical lateral wall and apex which was mildly reversible in the apical lateral wall. 24 Hour event -ON episode of hypotension with MAP < 50 and low urine output < 20 ml/hr, received albumin -Extubated in mid-day on 08/28/2014 -Following extubation reports fatigue, but otherwise indicates he is doing well -Denies SOB, N/V, cardiac CP Active Diagnosis with Assessment & Plan Priority Class Head/Neck Airway edema Current Assessment & Plan After TORS procedures -Kept intubated and sedated overnight -decadron 8mg q8hrs per ENT ON -Cuff leak confirmed, passed SBT, extubated on 08/28/2014 Difficult intubation Cardiovascular CAD (coronary artery disease), [place] coronary artery Overview S/P [place] 2013 Current Assessment & Plan -Per ENT, hold aspirin and clopidogrel -Continue carvedilol 6.25 mg BID HTN (hypertension) Current Assessment & Plan -continue home carvedilol 6.25 mg BID -hold home HCTZ, losartan, and Isosorbide Respiratory/Chest Respiratory insufficiency Current Assessment & Plan -Extubated on 08/28/2014 -Supplemental oxygen to maintain SpO2 > 92% Pulmonary edema Current Assessment & Plan -Suspected contributor to opacities on 08/28/2014 CXR -Furosemide 40 mg IV once today, goal I/O negative 500-1000 ml Genitourinary CKD (chronic kidney disease) Current Assessment & Plan Baseline Radio Antenna Installer ~1.5 Digestive GERD (gastroesophageal reflux disease) Overview S/P [place] Other Post-operative pain Current Assessment & Plan -Acetaminophen -PRN hydromorphone and oxycodone Code Status Updated to: FULL Physical Exam Constitutional: He appears well-developed and well-nourished HENT: Head:normocephalic and atraumatic Left neck incision with well approximated edges, no activ e drainage. ALLI drain exiting left neck inferior to incision, minimal serosanginous fluid in tubing. Eyes: pupils are equal, round, and reactive to light Cardiovascular: normal rate and regular rhythm No peripheral edema. Pulmonary: Patient is intubated breath sounds normal. Abdominal: bowel sounds are normal. Abdomen is soft. Neurological: Sedated, intubated Skin: Skin is warm. Service ENT [12] Admitting provider and ICU treatment team members Provider Role Pager Danny Abdullahi MD Admitting Provider [phone] Daryn Finney MD ICU PM Attending [phone] Danny Jaffe MD ICU Day Attending [phone] FAST HUG Feeding: NPO Analgesia: Acetaminophen, oxycodone, hydromorphone Sedation: NA Thromboprophylaxis: SCDs Head of Bed: > 30 degrees Ulcer Prophylaxis: famotidine Glycemic Control: insulin infusion Author:GALEN KEENAN MD,PhD [address] [address] Dontrell Friend MD - 08/28/2014 8:58 AM PDT Cardiovascular Intensive Care Unit Attending Progress Note CVICU D1 Assigned #[id number] ICU Admission Reason Most Recent Value ICU Admission reason airway edema filed at 08/27/2014 1832 Documentation Date - WedAugust 27, 2014 1828 Procedure Date Day of Procedure 08/27/14 ENT ENT ENT ENT Procedures Other ENT Other TORS partial glossectomy and L neck dissection 2027 ENT ENT Procedures Other ENT Other TORS partial pharyngectomy Hospital admission dx: Data Unavailable Days in ICU HPI Mr. Johnson is an 79 year old male with hx of CAD s/p [place] in 2013, HTN, CKD, and hx of diffic ult airway who underwent a TORS hemiglossectomy and neck dissection for SCC of the base of h is tongue. At the end of the procedure he was noted to have some airway obstruction which w as resolved with a nasal trumpet and some nasal bleeding. He was reintubated orally. After reintubation he was noted to have airway edema and brought to the ICU intubated and sedated . Mr. Johnson's [place] in 2013 was medically managed and his NSTEMI. TTE on 08/21/13 showed an EF of 65-70% and no WMA. Stress thallium test on 08/30/2013 showed a small defect in apical lateral wall and apex which was mildly reversible in the apical lateral wall. 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 Initially difficult air way, extubated at end of case, then had to be reintubated from posterior pharynx (nose). Doi ng well overnight, and treated with steroids of airway edema. Will diurese prior to extubati on. Will plan for extubation today if patient has cuff leak and passes SBT. With history of CAD and [place], will continue ASA 81 mg and switch from low intensity statin to high intensity (atorvastatin 80). Hospital Problems Priority Head/Neck Airway edema Difficult intubation Cardiovascular CAD (coronary artery disease), [place] coronary artery HTN (hypertension) Respiratory/Chest Respiratory insufficiency Pulmonary edema Genitourinary CKD (chronic kidney disease) Digestive GERD (gastroesophageal reflux disease) Other Post-operative pain Service ENT [12] Admitting provider and ICU treatment team members Provider Role Pager Danny Abdullahi MD Admitting Provider [phone] Daryn Finney MD ICU PM Attending [phone] Danny Jaffe MD ICU Day Attending [phone] I have spent a total of 95 minutes in the direct care and management of this patient who is critically ill independent of any time spent teaching or performing any separately billable procedures. I reviewed the documented findings, all data and the recent imaging available. Author:DANNY JAFFE MD [address] [address] Shaun Ham PA-C - 08/28/2014 8:37 AM PDT Head and Neck Surgery Inpatient Daily Progress Note: Author: SHAUN DELATORRE PA-C Attending Physician: Danny Abdullahi MD, * Primary Care Provider: Cong Freeman MD Admission Date: 08/27/2014 SKYLER JOHNSON, [id number] Hospital Day #1 ID: Mr. Skyler Johnson is a 79 y/o male with squmous cell carcinoma of left tongue who under went the following procedure. PROCEDURES: 1. Suspension microlaryngoscopy. 2. Rigid esophagoscopy. 3. Transoral robotic surgery for left partial pharyngectomy. 4. Transoral robotic surgery for left partial glossectomy. 5. Left-sided selective neck dissection, levels 2 through 4. SUBJECTIVE INTERVAL EVENTS: -procedure required re-intubation 2/2 airway obstruction from swelling of the tongue and ne ck incision was re-open and sewn. Was transferred to ICU -On insulin and propofol gtt -Drain hold to bulb suction OBJECTIVE Last 24 hour min/max Temp: 36.8 C (98.2 F) Temp Min: 34.6 C (94.2 F) Max: 36.9 C (98.4 F) Pulse: 57 Pulse Min: 57 Max: 86 Resp: 11 Resp Min: 11 Max: 24 BP: 107/38 mmHg BP Min: 99/38 Max: 143/40 SpO2: 99 % SpO2 Min: 93 % Max: 100 % Body mass index is 32.08 kg/(m^2). Intake/Output Summary (Last 24 hours) at 08/28/14 0837 Last data filed at 08/28/14 0700 Gross per 24 hour Intake 3433.24 ml Output 1245 ml Net 2188.24 ml ALLI: 35, SS PHYSICAL EXAM: General: intubated HEENT: Neck: soft, flat, no hematoma Intraoral lesion:clean/dry/intact, soft Drains: ALLI x 1 to the neck holding suction with serosanguinous output LABS: Recent Labs 08/27/14 1439 08/27/14 1845 08/28/14 0205 08/28/14 0556 08/28/14 0659 08/28/14 0806 NA 142 -- 142 -- 141 -- -- -- -- K 5.2* -- 4.4 -- 4.5 -- -- -- -- CL 112* -- 112* -- 111* -- -- -- -- BICARB 24 -- 24 -- 22 -- -- -- -- BUN 26* -- 26* -- 27* -- -- -- -- CR 1.39* -- 1.31* -- 1.55* -- -- -- -- GLU 180* < > 157* < > 164* < > 129* 153* 139* CA 8.2* -- 7.9* -- 7.5* -- -- -- -- ALB 3.0* -- 2.9* -- 2.7* -- -- -- -- < > = values in this interval not displayed. Recent Labs 08/28/14 0205 MG 1.5* Recent Labs 08/27/14 1439 08/27/14201208/28/14 0205 WBC 9.20 13.22* 13.07* RBC 3.60* 3.62* 3.48* HB 11.5* 11.4* 10.8* HCT 34.8* 34.9* 33.2* PLT 166 156 149* CBG's Recent Labs 08/28/14 0001 08/28/14 0107 08/28/14 0205 08/28/14 0207 08/28/14 0305 08/28/14 0401 08/28/14 0510 08/28/14 0556 08/28/14 0659 08/28/14 0806 GLU 199* 177* 164* 162* 145* 158* 146* 129* 153* 139* ASSESSMENT/PLAN: Skyler Johnson is a 79 y.o. male with squmous cell carcinoma of left tongue whose intra-oper ative course was complicated by reintubation 2/2 airway obstruction from airway edema who is HD# 1, POD#1 S/P left TORS partial glossectomy and L neck dissection 1. Greatly appreciate CV ICU team care: Ok from ENT perspective to extubate 2. Will hold off on re-starting aspirin and Plavix for now. 3. Continue post-op pain management 4. Continue ALLI drain , milk, and empty q 8 hrs 5. Continue Decadron q 8 hrs 4. Dispo: Once extubated, if patient stable as per CV ICU can be transfer to floor Code Status Updated to: FULL SHAUN DELATORRE PA-C Otolaryngology-Head and Neck Surgery [facility] Pager [phone] documented in this encounter Plan of Treatment Not on filedocumented as of this encounter Procedures + +--------+ + + + | Procedure Name | Priori | Date/Time | Associated Diagnosis | Comments | | | ty | | | | + +--------+ + + + | PROCEDURE NOTE | Routin | 07/04/2015 | | Results for this | | | e | 3:08 PM | | procedure are in the | | | | PST | | results section. | + +--------+ + + + | CAPILLARY BLOOD | Routin | 08/31/2014 | | Results for this | | GLUCOSE (NO CHG), | e | 2:23 PM | | procedure are in the | | POC | | PDT | | results section. | + +--------+ + + + | CAPILLARY BLOOD | Routin | 08/31/2014 | | Results for this | | GLUCOSE (NO CHG), | e | 10:04 AM | | procedure are in the | | POC | | PDT | | results section. | + +--------+ + + + | CAPILLARY BLOOD | Routin | 08/31/2014 | | Results for this | | GLUCOSE (NO CHG), | e | 6:16 AM | | procedure are in the | | POC | | PDT | | results section. | + +--------+ + + + | RENAL FUNCTION SET | Urgent | 08/31/2014 | | Results for this | | (NA,K,CL,CO2,BUN,CRE | | 6:05 AM | | procedure are in the | | AT,GLUC,CA,PHOS,ALB | | PDT | | results section. | | ) | | | | | + +--------+ + + + | CAPILLARY BLOOD | Routin | 08/30/2014 | | Results for this | | GLUCOSE (NO CHG), | e | 9:09 PM | | procedure are in the | | POC | | PDT | | results section. | + +--------+ + + + | CAPILLARY BLOOD | Routin | 08/30/2014 | | Results for this | | GLUCOSE (NO CHG), | e | 5:19 PM | | procedure are in the | | POC | | PDT | | results section. | + +--------+ + + + | CAPILLARY BLOOD | Routin | 08/30/2014 | | Results for this | | GLUCOSE (NO CHG), | e | 12:34 PM | | procedure are in the | | POC | | PDT | | results section. | + +--------+ + + + | CAPILLARY BLOOD | Routin | 08/30/2014 | | Results for this | | GLUCOSE (NO CHG), | e | 8:13 AM | | procedure are in the | | POC | | PDT | | results section. | + +--------+ + + + | CBC (HEMOGRAM) ONLY | Routin | 08/30/2014 | | Results for this | | | e | 5:19 AM | | procedure are in the | | | | PDT | | results section. | + +--------+ + + + | BASIC METABOLIC SET | Routin | 08/30/2014 | | Results for this | | (NA, K, CL, TCO2, | e | 5:19 AM | | procedure are in the | | BUN, CR, GLU, CA) | | PDT | | results section. | + +--------+ + + + | RENAL FUNCTION SET | Urgent | 08/30/2014 | | Results for this | | (NA,K,CL,CO2,BUN,CRE | | 5:19 AM | | procedure are in the | | AT,GLUC,CA,PHOS,ALB | | PDT | | results section. | | ) | | | | | + +--------+ + + + | CBC ONLY | Routin | 08/30/2014 | | Results for this | | | e | 5:19 AM | | procedure are in the | | | | PDT | | results section. | + +--------+ + + + | MAGNESIUM, PLASMA | Urgent | 08/30/2014 | | Results for this | | | | 5:19 AM | | procedure are in the | | | | PDT | | results section. | + +--------+ + + + | CAPILLARY BLOOD | Routin | 08/29/2014 | | Results for this | | GLUCOSE (NO CHG), | e | 10:03 PM | | procedure are in the | | POC | | PDT | | results section. | + +--------+ + + + | CAPILLARY BLOOD | Routin | 08/29/2014 | | Results for this | | GLUCOSE (NO CHG), | e | 5:37 PM | | procedure are in the | | POC | | PDT | | results section. | + +--------+ + + + | BASIC METABOLIC SET | Routin | 08/29/2014 | | Results for this | | (NA, K, CL, TCO2, | e | 5:06 PM | | procedure are in the | | BUN, CR, GLU, CA) | | PDT | | results section. | + +--------+ + + + | CAPILLARY BLOOD | Routin | 08/29/2014 | | Results for this | | GLUCOSE (NO CHG), | e | 12:56 PM | | procedure are in the | | POC | | PDT | | results section. | + +--------+ + + + | CAPILLARY BLOOD | Routin | 08/29/2014 | | Results for this | | GLUCOSE (NO CHG), | e | 8:11 AM | | procedure are in the | | POC | | PDT | | results section. | + +--------+ + + + | CAPILLARY BLOOD | Routin | 08/29/2014 | | Results for this | | GLUCOSE (NO CHG), | e | 6:58 AM | | procedure are in the | | POC | | PDT | | results section. | + +--------+ + + + | CAPILLARY BLOOD | Routin | 08/29/2014 | | Results for this | | GLUCOSE (NO CHG), | e | 6:04 AM | | procedure are in the | | POC | | PDT | | results section. | + +--------+ + + + | CBC (HEMOGRAM) ONLY | Routin | 08/29/2014 | | Results for this | | | e | 5:24 AM | | procedure are in the | | | | PDT | | results section. | + +--------+ + + + | RENAL FUNCTION SET | Urgent | 08/29/2014 | | Results for this | | (NA,K,CL,CO2,BUN,CRE | | 5:24 AM | | procedure are in the | | AT,GLUC,CA,PHOS,ALB | | PDT | | results section. | | ) | | | | | + +--------+ + + + | CBC ONLY | Routin | 08/29/2014 | | Results for this | | | e | 5:24 AM | | procedure are in the | | | | PDT | | results section. | + +--------+ + + + | MAGNESIUM, PLASMA | Urgent | 08/29/2014 | | Results for this | | | | 5:24 AM | | procedure are in the | | | | PDT | | results section. | + +--------+ + + + | CAPILLARY BLOOD | Routin | 08/29/2014 | | Results for this | | GLUCOSE (NO CHG), | e | 5:04 AM | | procedure are in the | | POC | | PDT | | results section. | + +--------+ + + + | CAPILLARY BLOOD | Routin | 08/29/2014 | | Results for this | | GLUCOSE (NO CHG), | e | 3:57 AM | | procedure are in the | | POC | | PDT | | results section. | + +--------+ + + + | CAPILLARY BLOOD | Routin | 08/29/2014 | | Results for this | | GLUCOSE (NO CHG), | e | 2:39 AM | | procedure are in the | | POC | | PDT | | results section. | + +--------+ + + + | CAPILLARY BLOOD | Routin | 08/28/2014 | | Results for this | | GLUCOSE (NO CHG), | e | 11:53 PM | | procedure are in the | | POC | | PDT | | results section. | + +--------+ + + + | CAPILLARY BLOOD | Routin | 08/28/2014 | | Results for this | | GLUCOSE (NO CHG), | e | 9:55 PM | | procedure are in the | | POC | | PDT | | results section. | + +--------+ + + + | CAPILLARY BLOOD | Routin | 08/28/2014 | | Results for this | | GLUCOSE (NO CHG), | e | 7:44 PM | | procedure are in the | | POC | | PDT | | results section. | + +--------+ + + + | CAPILLARY BLOOD | Routin | 08/28/2014 | | Results for this | | GLUCOSE (NO CHG), | e | 6:00 PM | | procedure are in the | | POC | | PDT | | results section. | + +--------+ + + + | CAPILLARY BLOOD | Routin | 08/28/2014 | | Results for this | | GLUCOSE (NO CHG), | e | 4:56 PM | | procedure are in the | | POC | | PDT | | results section. | + +--------+ + + + | CAPILLARY BLOOD | Routin | 08/28/2014 | | Results for this | | GLUCOSE (NO CHG), | e | 3:50 PM | | procedure are in the | | POC | | PDT | | results section. | + +--------+ + + + | X-RAY ABD LTD | Routin | 08/28/2014 | | Results for this | | FEEDING TUBE EVAL | e | 3:38 PM | | procedure are in the | | | | PDT | | results section. | + +--------+ + + + | RENAL FUNCTION SET | Urgent | 08/28/2014 | | Results for this | | (NA,K,CL,CO2,BUN,CRE | | 2:10 PM | | procedure are in the | | AT,GLUC,CA,PHOS,ALB | | PDT | | results section. | | ) | | | | | + +--------+ + + + | MAGNESIUM, PLASMA | Urgent | 08/28/2014 | | Results for this | | | | 2:10 PM | | procedure are in the | | | | PDT | | results section. | + +--------+ + + + | CAPILLARY BLOOD | Routin | 08/28/2014 | | Results for this | | GLUCOSE (NO CHG), | e | 2:07 PM | | procedure are in the | | POC | | PDT | | results section. | + +--------+ + + + | CAPILLARY BLOOD | Routin | 08/28/2014 | | Results for this | | GLUCOSE (NO CHG), | e | 12:55 PM | | procedure are in the | | POC | | PDT | | results section. | + +--------+ + + + | CAPILLARY BLOOD | Routin | 08/28/2014 | | Results for this | | GLUCOSE (NO CHG), | e | 11:36 AM | | procedure are in the | | POC | | PDT | | results section. | + +--------+ + + + | CAPILLARY BLOOD | Routin | 08/28/2014 | | Results for this | | GLUCOSE (NO CHG), | e | 10:31 AM | | procedure are in the | | POC | | PDT | | results section. | + +--------+ + + + | CAPILLARY BLOOD | Routin | 08/28/2014 | | Results for this | | GLUCOSE (NO CHG), | e | 9:27 AM | | procedure are in the | | POC | | PDT | | results section. | + +--------+ + + + | X-RAY PORTABLE CHEST | Routin | 08/28/2014 | | Results for this | | 1 VIEW | e | 8:30 AM | | procedure are in the | | | | PDT | | results section. | + +--------+ + + + | CAPILLARY BLOOD | Routin | 08/28/2014 | | Results for this | | GLUCOSE (NO CHG), | e | 8:06 AM | | procedure are in the | | POC | | PDT | | results section. | + +--------+ + + + | CAPILLARY BLOOD | Routin | 08/28/2014 | | Results for this | | GLUCOSE (NO CHG), | e | 6:59 AM | | procedure are in the | | POC | | PDT | | results section. | + +--------+ + + + | CAPILLARY BLOOD | Routin | 08/28/2014 | | Results for this | | GLUCOSE (NO CHG), | e | 5:56 AM | | procedure are in the | | POC | | PDT | | results section. | + +--------+ + + + | CAPILLARY BLOOD | Routin | 08/28/2014 | | Results for this | | GLUCOSE (NO CHG), | e | 5:10 AM | | procedure are in the | | POC | | PDT | | results section. | + +--------+ + + + | CAPILLARY BLOOD | Routin | 08/28/2014 | | Results for this | | GLUCOSE (NO CHG), | e | 4:01 AM | | procedure are in the | | POC | | PDT | | results section. | + +--------+ + + + | CAPILLARY BLOOD | Routin | 08/28/2014 | | Results for this | | GLUCOSE (NO CHG), | e | 3:05 AM | | procedure are in the | | POC | | PDT | | results section. | + +--------+ + + + | CAPILLARY BLOOD | Routin | 08/28/2014 | | Results for this | | GLUCOSE (NO CHG), | e | 2:07 AM | | procedure are in the | | POC | | PDT | | results section. | + +--------+ + + + | CBC (HEMOGRAM) ONLY | Routin | 08/28/2014 | | Results for this | | | e | 2:05 AM | | procedure are in the | | | | PDT | | results section. | + +--------+ + + + | RENAL FUNCTION SET | Urgent | 08/28/2014 | | Results for this | | (NA,K,CL,CO2,BUN,CRE | | 2:05 AM | | procedure are in the | | AT,GLUC,CA,PHOS,ALB | | PDT | | results section. | | ) | | | | | + +--------+ + + + | CBC ONLY | Routin | 08/28/2014 | | Results for this | | | e | 2:05 AM | | procedure are in the | | | | PDT | | results section. | + +--------+ + + + | MAGNESIUM, PLASMA | Urgent | 08/28/2014 | | Results for this | | | | 2:05 AM | | procedure are in the | | | | PDT | | results section. | + +--------+ + + + | CAPILLARY BLOOD | Routin | 08/28/2014 | | Results for this | | GLUCOSE (NO CHG), | e | 1:07 AM | | procedure are in the | | POC | | PDT | | results section. | + +--------+ + + + | CAPILLARY BLOOD | Routin | 08/28/2014 | | Results for this | | GLUCOSE (NO CHG), | e | 12:01 AM | | procedure are in the | | POC | | PDT | | results section. | + +--------+ + + + | CBC (HEMOGRAM) ONLY | Urgent | 08/27/2014 | | Results for this | | | | 8:13 PM | | procedure are in the | | | | PDT | | results section. | + +--------+ + + + | CBC ONLY | Urgent | 08/27/2014 | | Results for this | | | | 8:13 PM | | procedure are in the | | | | PDT | | results section. | + +--------+ + + + | CAPILLARY BLOOD | Routin | 08/27/2014 | | Results for this | | GLUCOSE (NO CHG), | e | 7:20 PM | | procedure are in the | | POC | | PDT | | results section. | + +--------+ + + + | RENAL FUNCTION SET | Urgent | 08/27/2014 | | Results for this | | (NA,K,CL,CO2,BUN,CRE | | 6:45 PM | | procedure are in the | | AT,GLUC,CA,PHOS,ALB | | PDT | | results section. | | ) | | | | | + +--------+ + + + | X-RAY ABD LTD | Routin | 08/27/2014 | | Results for this | | FEEDING TUBE EVAL | e | 3:32 PM | | procedure are in the | | PORTABLE | | PDT | | results section. | + +--------+ + + + | X-RAY PORTABLE CHEST | Urgent | 08/27/2014 | | Results for this | | 1 VIEW | | 3:32 PM | | procedure are in the | | | | PDT | | results section. | + +--------+ + + + | 12 LEAD ECG | Routin | 08/27/2014 | | Results for this | | | e | 3:08 PM | | procedure are in the | | | | PDT | | results section. | + +--------+ + + + | CAPILLARY BLOOD | Routin | 08/27/2014 | | Results for this | | GLUCOSE (NO CHG), | e | 2:40 PM | | procedure are in the | | POC | | PDT | | results section. | + +--------+ + + + | BLOOD GASES, | Routin | 08/27/2014 | | Results for this | | ARTERIAL - LAB | e | 2:40 PM | | procedure are in the | | | | PDT | | results section. | + +--------+ + + + | CBC (HEMOGRAM) ONLY | Urgent | 08/27/2014 | | Results for this | | | | 2:39 PM | | procedure are in the | | | | PDT | | results section. | + +--------+ + + + | RENAL FUNCTION SET | Urgent | 08/27/2014 | | Results for this | | (NA,K,CL,CO2,BUN,CRE | | 2:39 PM | | procedure are in the | | AT,GLUC,CA,PHOS,ALB | | PDT | | results section. | | ) | | | | | + +--------+ + + + | CBC ONLY | Urgent | 08/27/2014 | | Results for this | | | | 2:39 PM | | procedure are in the | | | | PDT | | results section. 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 | + +--------+ + + + | ANTIBODY SCREEN | Routin | 08/27/2014 | | Results for this | | | e | 6:38 AM | | procedure are in the | | | | PDT | | results section. | + +--------+ + + + | ABO & RH TYPE | Urgent | 08/27/2014 | | Results for this | | | | 6:38 AM | | procedure are in the | | | | PDT | | results section. | + +--------+ + + + | CARDIOLOGY | | 08/27/2014 | | Results for this | | | | 12:00 AM | | procedure are in the | | | | PDT | | results section. | + +--------+ + + + | SURGICAL PATHOLOGY | Routin | 08/27/2014 | | Results for this | | | e | | | procedure are in the | | | | | | results section. | + +--------+ + + + documented in this encounter Results PROCEDURE NOTE (07/04/2015 3:08 PM PST)CAPILLARY BLOOD GLUCOSE (NO CHG), POC (08/31/2014 2:23 PM PDT) + +---------+ + + + | Component | Value | Ref Range | Performed | Pathologist | | | | | At | Signature | + +---------+ + + + | BLOOD | 129 (H) | 60 - 99 mg/dL | [facility] - | | | GLUCOSE, | | | [facility] | | | POC | | | [facility] | | | | | | OF CARE | | | | | | TESTS | | + +---------+ + + + + + | Specimen | + + | | + + + + + + + | Performing | Address | City/State/Zipcode | Phone Number | | Organization | | | | + + + + + | [facility] | [address] | [place], [place] | | | [facility] [place] | [facility] | [phone] | | | TESTS | | | | + + + + + CAPILLARY BLOOD GLUCOSE (NO CHG), POC (08/31/2014 10:04 AM PDT) + +---------+ + + + | Component | Value | Ref Range | Performed | Pathologist | | | | | At | Signature | + +---------+ + + + | BLOOD | 174 (H) | 60 - 99 mg/dL | [facility] | | | GLUCOSE, | | | [place] | | | POC | | | [place] | | | | | | OF CARE | | | | | | TESTS | | + +---------+ + + + + + | Specimen | + + | | + + + + + + + | Performing | Address | City/State/Zipcode | Phone Number | | Organization | | | | + + + + + | [facility] | [address] | [place], [place] | | | [facility] | [facility] | [phone] | | | TESTS | | | | + + + + + CAPILLARY BLOOD GLUCOSE (NO CHG), POC (08/31/2014 6:16 AM PDT) + +---------+ + + + | Component | Value | Ref Range | Performed | Pathologist | | | | | At | Signature | + +---------+ + + + | BLOOD | 135 (H) | 60 - 99 mg/dL | [facility] - | | | GLUCOSE, | | | [place] | | | POC | | | [facility] | | | | | | OF CARE | | | | | | TESTS | | + +---------+ + + + + + | Specimen | + + | | + + + + + + + | Performing | Address | City/State/Zipcode | Phone Number | | Organization | | | | + + + + + | [facility] | [address] | [place], [place] | | | [facility] | [address] | [phone] | | | TESTS | | | | + + + + + RENAL FUNCTION SET (NA,K,CL,CO2,BUN,CREAT,GLUC,CA,PHOS,ALB ) (08/31/2014 6:05 AM PDT) + + + + + + | Component | Value | Ref Range | Performed | Pathologist | | | | | At | Signature | + + + + + + | GLUCOSE, | 111 (H) | 60 - 99 mg/dL | [facility] | | | PLASMA | | | LABORATORY | | | (LAB) | | | SERVICES, | | | | | | CORE | | + + + + + + | BUN, PLASMA | 37 (H) | 6 - 20 mg/dL | [facility] | | | (LAB) | | | LABORATORY | | | | | | SERVICES, | | | | | | CORE | | + + + + + + | CREATININE | 1.56 (H) | 0.70 - 1.30 | [facility] | | | PLASMA | | mg/dL | LABORATORY | | | (LAB) | | | SERVICES, | | | | | | CORE | | + + + + + + | EGFR | 52 (L) | >60 mL/min | [facility] | | | - | | | LABORATORY | | | [place] | | | SERVICES, | | | | | | CORE | | + + + + + + | EGFR NON | 43 (L) | >60 mL/min | [facility] | | | [facility] | | | LABORATORY | | | [place] | | | SERVICES, | | | | | | CORE | | + + + + + + | SODIUM, | 144 | 136 - 145 | [facility] | | | PLASMA | | mmol/L | LABORATORY | | | (LAB) | | | SERVICES, | | | | | | CORE | | + + + + + + | POTASSIUM, | 5.4 (H) | 3.4 - 5.0 | [facility] | | | PLASMA | | mmol/L | LABORATORY | | | (LAB) | | | SERVICES, | | | | | | CORE | | + + + + + + | CHLORIDE, | 113 (H) | 97 - 108 mmol/L | [facility] | | | PLASMA | | | LABORATORY | | | (LAB) | | | SERVICES, | | | | | | CORE | | + + + + + + | TOTAL CO2, | 25 | 21 - 32 mmol/L | [facility] | | | PLASMA | | | LABORATORY | | | (LAB) | | | SERVICES, | | | | | | CORE | | + + + + + + | CALCIUM, | 8.3 (L) | 8.6 - 10.2 | [facility] | | | PLASMA | | mg/dL | LABORATORY | | | (LAB) | | | SERVICES, | | | | | | CORE | | + + + + + + | ALBUMIN, | 3.0 (L) | 3.5 - 4.7 g/dL | [facility] | | | PLASMA | | | LABORATORY | | | (LAB) | | | SERVICES, | | | | | | CORE | | + + + + + + | PHOSPHORUS, | 3.2 | 2.4 - 4.7 mg/dL | [facility] | | | PLASMA | | | LABORATORY | | | (LAB) | | | SERVICES, | | | | | | CORE | | + + + + + + | POTASSIUM | Mod Hemo | | [facility] | | | CMNT | | | LABORATORY | | | | | | SERVICES, | | | | | | CORE | | + + + + + + | ANION GAP | 6 | mmol/L | [facility] | | | | | | LABORATORY | | | | | | SERVICES, | | | | | | CORE | | + + + + + + | ANION | 8 | 4 - 11 mmol/L | [facility] | | | GAP(ALB | | | LABORATORY | | | CORRECTED) | | | SERVICES, | | | | | | CORE | | + + + + + + + + | Specimen | + + | Blood - Blood | + + + + + | Narrative | Performed At | + + + | Sample hemolyzed. Results for K, Total Bili, Direct Bili, AST, | [facility] | | LDH, or HDL may be inaccurate. Refer to comment under test result. | LABORATORY | | GFR is estimated using the MDRD equation recommended by the National | SERVICES, [facility] | | Kidney Disease Education Program. Estimated GFR Interpretive | | | Information: <60 mL/min/1.73 sq m Chronic Kidney | | | Disease <15 mL/min/1.73 sq m Kidney Failure | | | Estimated GFR greater that 60 mL/min/1.73 sq m is of limited clinical | | | value. The MDRD equation is not valid in the following situations: | | | - Patients under 18 years of age - Severe malnutrition or obesity | | | - Vegetarian diet - Rapidly changing kidney function | | + + + + + + + + | Performing | Address | City/State/Zipcode | Phone Number | | Organization | | | | + + + + + | [facility] | [address] | [place] [address] | | | [facility] | [address] | | | + + + + + CAPILLARY BLOOD GLUCOSE (NO CHG), POC (08/30/2014 9:09 PM PDT) + +---------+ + + + | Component | Value | Ref Range | Performed | Pathologist | | | | | At | Signature | + +---------+ + + + | BLOOD | 150 (H) | 60 - 99 mg/dL | [facility] - | | | GLUCOSE, | | | [place] | | | POC | | | [facility] | | | | | | OF CARE | | | | | | TESTS | | + +---------+ + + + + + | Specimen | + + | | + + + + + + + | Performing | Address | City/State/Zipcode | Phone Number | | Organization | | | | + + + + + | [facility] | [address] | [place], [place] | | | [facility] | [address] | [phone] | | | TESTS | | | | + + + + + CAPILLARY BLOOD GLUCOSE (NO CHG), POC (08/30/2014 5:19 PM PDT) + +---------+ + + + | Component | Value | Ref Range | Performed | Pathologist | | | | | At | Signature | + +---------+ + + + | BLOOD | 175 (H) | 60 - 99 mg/dL | [facility] - | | | GLUCOSE, | | | [place] | | | POC | | | [place] [facility] | | | | | | OF CARE | | | | | | TESTS | | + +---------+ + + + + + | Specimen | + + | | + + + + + + + | Performing | Address | City/State/Zipcode | Phone Number | | Organization | | | | + + + + + | [facility] | [address] | [place], [place] | | | [facility] | [address] | [phone] | | | TESTS | | | | + + + + + CAPILLARY BLOOD GLUCOSE (NO CHG), POC (08/30/2014 12:34 PM PDT) + +---------+ + + + | Component | Value | Ref Range | Performed | Pathologist | | | | | At | Signature | + +---------+ + + + | BLOOD | 145 (H) | 60 - 99 mg/dL | [facility] - | | | GLUCOSE, | | | [place] | | | POC | | | [facility] | | | | | | OF CARE | | | | | | TESTS | | + +---------+ + + + + + | Specimen | + + | | + + + + + + + | Performing | Address | City/State/Zipcode | Phone Number | | Organization | | | | + + + + + | [facility] | [address] | [place], [place] | | | [facility] | [address] | [phone] | | | TESTS | | | | + + + + + CAPILLARY BLOOD GLUCOSE (NO CHG), POC (08/30/2014 8:13 AM PDT) + +---------+ + + + | Component | Value | Ref Range | Performed | Pathologist | | | | | At | Signature | + +---------+ + + + | BLOOD | 133 (H) | 60 - 99 mg/dL | [facility] | | | [facility], | | | [facility] | | | POC | | | [facility] | | | | | | OF CARE | | | | | | TESTS | | + +---------+ + + + + + | Specimen | + + | | + + + + + + + | Performing | Address | City/State/Zipcode | Phone Number | | Organization | | | | + + + + + | [facility] | [address] | [place], [place] | | | [facility] | [address] | [phone] | | | TESTS | | | | + + + + + CBC (HEMOGRAM) ONLY (08/30/2014 5:19 AM PDT) + + + + + + | Component | Value | Ref Range | Performed | Pathologist | | | | | At | Signature | + + + + + + | WHITE CELL | 12.14 (H) | 4.40 - 11.00 | [facility] | | | COUNT | | K/cu mm | LABORATORY | | | | | | SERVICES, | | | | | | CORE | | + + + + + + | RED CELL | 3.29 (L) | 4.50 - 6.00 | [facility] | | | COUNT | | M/cu mm | LABORATORY | | | | | | SERVICES, | | | | | | CORE | | + + + + + + | HEMOGLOBIN | 10.3 (L) | 13.5 - 17.5 | [facility] | | | | | g/dL | LABORATORY | | | | | | SERVICES, | | | | | | CORE | | + + + + + + | HEMATOCRIT | 31.5 (L) | 41.0 - 53.0 % | [facility] | | | | | | LABORATORY | | | | | | SERVICES, | | | | | | CORE | | + + + + + + | MCV | 95.7 | 80.0 - 96.0 fL | [facility] | | | | | | LABORATORY | | | | | | SERVICES, | | | | | | CORE | | + + + + + + | MCHC | 32.7 | 33.0 - 35.5 | [facility] | | | | | g/dL | LABORATORY | | | | | | SERVICES, | | | | | | CORE | | + + + + + + | RDW SD | 54.1 (H) | 35.1 - 46.3 fL | [facility] | | | | | | LABORATORY | | | | | | SERVICES, | | | | | | CORE | | + + + + + + | PLATELET | 155 | 150 - 400 K/cu | [facility] | | | COUNT | | mm | LABORATORY | | | | | | SERVICES, | | | | | | CORE | | + + + + + + | MPV | 10.7 | 9.7 - 12.3 fL | [facility] | | | | | | LABORATORY | | | | | | SERVICES, | | | | | | CORE | | + + + + + + | NRBC% | 0.0 | 0.0 - 0.3 % | [facility] | | | | | | LABORATORY | | | | | | SERVICES, | | | | | | CORE | | + + + + + + | NRBC# | 0.00 | 0.00 - 0.02 | [facility] | | | | | K/cu mm | LABORATORY | | | | | | SERVICES, | | | | | | CORE | | + + + + + + + + | Specimen | + + | Blood - Blood | + + + + + + + | Performing | Address | City/State/Zipcode | Phone Number | | Organization | | | | + + + + + | [facility] | [address] | [place] [address] | | | SERVICES, CORE | [address] | | | + + + + + RENAL FUNCTION SET (NA,K,CL,CO2,BUN,CREAT,GLUC,CA,PHOS,ALB ) (08/30/2014 5:19 AM PDT) + + + + + + | Component | Value | Ref Range | Performed | Pathologist | | | | | At | Signature | + + + + + + | GLUCOSE, | 153 (H) | 60 - 99 mg/dL | [facility] | | | PLASMA | | | LABORATORY | | | (LAB) | | | SERVICES, | | | | | | CORE | | + + + + + + | BUN, PLASMA | 41 (H) | 6 - 20 mg/dL | [facility] | | | (LAB) | | | LABORATORY | | | | | | SERVICES, | | | | | | CORE | | + + + + + + | CREATININE | 1.61 (H) | 0.70 - 1.30 | [facility] | | | PLASMA | | mg/dL | LABORATORY | | | (LAB) | | | SERVICES, | | | | | | CORE | | + + + + + + | EGFR | 50 (L) | >60 mL/min | [facility] | | | - | | | LABORATORY | | | [facility] | | | SERVICES, | | | | | | CORE | | + + + + + + | EGFR NON | 41 (L) | >60 mL/min | [facility] | | | -[facility] | | | LABORATORY | | | [facility] | | | SERVICES, | | | | | | CORE | | + + + + + + | SODIUM, | 144 | 136 - 145 | [facility] | | | PLASMA | | mmol/L | LABORATORY | | | (LAB) | | | SERVICES, | | | | | | CORE | | + + + + + + | POTASSIUM, | 4.6 | 3.4 - 5.0 | [facility] | | | PLASMA | | mmol/L | LABORATORY | | | (LAB) | | | SERVICES, | | | | | | CORE | | + + + + + + | CHLORIDE, | 112 (H) | 97 - 108 mmol/L | [facility] | | | PLASMA | | | LABORATORY | | | (LAB) | | | SERVICES, | | | | | | CORE | | + + + + + + | TOTAL CO2, | 24 | 21 - 32 mmol/L | [facility] | | | PLASMA | | | LABORATORY | | | (LAB) | | | SERVICES, | | | | | | CORE | | + + + + + + | CALCIUM, | 8.2 (L) | 8.6 - 10.2 | [facility] | | | PLASMA | | mg/dL | LABORATORY | | | (LAB) | | | SERVICES, | | | | | | CORE | | + + + + + + | ALBUMIN, | 2.7 (L) | 3.5 - 4.7 g/dL | [facility] | | | PLASMA | | | LABORATORY | | | (LAB) | | | SERVICES, | | | | | | CORE | | + + + + + + | PHOSPHORUS, | 3.6 | 2.4 - 4.7 mg/dL | [facility] | | | PLASMA | | | LABORATORY | | | (LAB) | | | SERVICES, | | | | | | CORE | | + + + + + + | POTASSIUM | No Hemo | | [facility] | | | CMNT | | | LABORATORY | | | | | | SERVICES, | | | | | | CORE | | + + + + + + | ANION GAP | 8 | mmol/L | [facility] | | | | | | LABORATORY | | | | | | SERVICES, | | | | | | CORE | | + + + + + + | ANION | 11 | 4 - 11 mmol/L | [facility] | | | GAP(ALB | | | LABORATORY | | | CORRECTED) | | | SERVICES, | | | | | | CORE | | + + + + + + + + | Specimen | + + | Blood - Blood | + + + + + | Narrative | Performed At | + + + | GFR is estimated using the MDRD equation recommended by the | [facility] | | National Kidney Disease Education Program. Estimated GFR | LABORATORY | | Interpretive Information: <60 mL/min/1.73 sq m | SERVICES, CORE | | Chronic Kidney Disease <15 mL/min/1.73 sq m | | | Kidney Failure Estimated GFR greater that 60 mL/min/1.73 sq m is of | | | limited clinical value. The MDRD equation is not valid in the | | | following situations: - Patients under 18 years of age - Severe | | | malnutrition or obesity - Vegetarian diet - Rapidly changing kidney | | | function | | + + + + + + + + | Performing | Address | City/State/Zipcode | Phone Number | | Organization | | | | + + + + + | [facility] | [address] | [place] [address] | | | SERVICES, CORE | [address] | | | + + + + + BASIC METABOLIC SET (NA, K, CL, TCO2, BUN, CR, GLU, CA) (08/30/2014 5:19 AM PDT) + + + + + + | Component | Value | Ref Range | Performed | Pathologist | | | | | At | Signature | + + + + + + | GLUCOSE, | 153 (H) | 60 - 99 mg/dL | [facility] | | | PLASMA | | | LABORATORY | | | (LAB) | | | SERVICES, | | | | | | CORE | | + + + + + + | BUN, PLASMA | 41 (H) | 6 - 20 mg/dL | [facility] | | | (LAB) | | | LABORATORY | | | | | | SERVICES, | | | | | | CORE | | + + + + + + | CREATININE | 1.61 (H) | 0.70 - 1.30 | [facility] | | | PLASMA | | mg/dL | LABORATORY | | | (LAB) | | | SERVICES, | | | | | | CORE | | + + + + + + | EGFR | 50 (L) | >60 mL/min | [facility] | | | - | | | LABORATORY | | | [facility] | | | SERVICES, | | | | | | CORE | | + + + + + + | EGFR NON | 41 (L) | >60 mL/min | [facility] | | | -[facility] | | | LABORATORY | | | [facility] | | | SERVICES, | | | | | | CORE | | + + + + + + | SODIUM, | 144 | 136 - 145 | [facility] | | | PLASMA | | mmol/L | LABORATORY | | | (LAB) | | | SERVICES, | | | | | | CORE | | + + + + + + | POTASSIUM, | 4.6 | 3.4 - 5.0 | [facility] | | | PLASMA | | mmol/L | LABORATORY | | | (LAB) | | | SERVICES, | | | | | | CORE | | + + + + + + | CHLORIDE, | 112 (H) | 97 - 108 mmol/L | [facility] | | | PLASMA | | | LABORATORY | | | (LAB) | | | SERVICES, | | | | | | CORE | | + + + + + + | TOTAL CO2, | 24 | 21 - 32 mmol/L | [facility] | | | PLASMA | | | LABORATORY | | | (LAB) | | | SERVICES, | | | | | | CORE | | + + + + + + | CALCIUM, | 8.2 (L) | 8.6 - 10.2 | [facility] | | | PLASMA | | mg/dL | LABORATORY | | | (LAB) | | | SERVICES, | | | | | | CORE | | + + + + + + | ANION GAP | 8 | mmol/L | [facility] | | | | | | LABORATORY | | | | | | SERVICES, | | | | | | CORE | | + + + + + + | POTASSIUM | No Hemo | | [facility] | | | CMNT | | | LABORATORY | | | | | | SERVICES, | | | | | | CORE | | + + + + + + + + | Specimen | + + | Blood - Blood | + + + + + | Narrative | Performed At | + + + | GFR is estimated using the MDRD equation recommended by the | [facility] | | National Kidney Disease Education Program. Estimated GFR | LABORATORY | | Interpretive Information: <60 mL/min/1.73 sq m | SERVICES, CORE | | Chronic Kidney Disease <15 mL/min/1.73 sq m | | | Kidney Failure Estimated GFR greater that 60 mL/min/1.73 sq m is of | | | limited clinical value. The MDRD equation is not valid in the | | | following situations: - Patients under 18 years of age - Severe | | | malnutrition or obesity - Vegetarian diet - Rapidly changing kidney | | | function | | + + + + + + + + | Performing | Address | City/State/Zipcode | Phone Number | | Organization | | | | + + + + + | [facility] | [address] | [place] [address] | | | SERVICES, MATY | [address] | | | + + + + + MAGNESIUM, PLASMA (08/30/2014 5:19 AM PDT) + +-------+ + + + | Component | Value | Ref Range | Performed | Pathologist | | | | | At | Signature | + +-------+ + + + | MAGNESIUM,P | 2.4 | 1.8 - 2.5 mg/dL | [facility] | | | LASMA | | | LABORATORY | | | | | | NEFTALY, | | | | | | CORE | | + +-------+ + + + + + | Specimen | + + | Blood - Blood | + + + + + + + | Performing | Address | City/State/Zipcode | Phone Number | | Organization | | | | + + + + + | [facility] | [address] | [place] [address] | | | SERVICES, CORE | [address] | | | + + + + + CAPILLARY BLOOD GLUCOSE (NO CHG), POC (08/29/2014 10:03 PM PDT) + +---------+ + + + | Component | Value | Ref Range | Performed | Pathologist | | | | | At | Signature | + +---------+ + + + | BLOOD | 185 (H) | 60 - 99 mg/dL | [facility] | | | GLUCOSE, | | | [facility] | | | POC | | | [facility] | | | | | | OF CARE | | | | | | TESTS | | + +---------+ + + + + + | Specimen | + + | | + + + + + + + | Performing | Address | City/State/Zipcode | Phone Number | | Organization | | | | + + + + + | [facility] | [address] | [place], [place] | | | [facility] | [address] | [address] | | | TESTS | | | | + + + + + CAPILLARY BLOOD GLUCOSE (NO CHG), POC (08/29/2014 5:37 PM PDT) + +---------+ + + + | Component | Value | Ref Range | Performed | Pathologist | | | | | At | Signature | + +---------+ + + + | BLOOD | 169 (H) | 60 - 99 mg/dL | [facility] | | | GLUCOSE, | | | [facility] | | | POC | | | [facility] | | | | | | OF CARE | | | | | | TESTS | | + +---------+ + + + + + | Specimen | + + | | + + + + + + + | Performing | Address | City/State/Zipcode | Phone Number | | Organization | | | | + + + + + | [facility] | [address] | [place], [place] | | | [facility] | [address] | [address] | | | TESTS | | | | + + + + + BASIC METABOLIC SET (NA, K, CL, TCO2, BUN, CR, GLU, CA) (08/29/2014 5:06 PM PDT) + + + + + + | Component | Value | Ref Range | Performed | Pathologist | | | | | At | Signature | + + + + + + | GLUCOSE, | 153 (H) | 60 - 99 mg/dL | [facility] | | | PLASMA | | | LABORATORY | | | (LAB) | | | SERVICES, | | | | | | CORE | | + + + + + + | BUN, PLASMA | 41 (H) | 6 - 20 mg/dL | [facility] | | | (LAB) | | | LABORATORY | | | | | | SERVICES, | | | | | | CORE | | + + + + + + | CREATININE | 1.72 (H) | 0.70 - 1.30 | [facility] | | | PLASMA | | mg/dL | LABORATORY | | | (LAB) | | | SERVICES, | | | | | | CORE | | + + + + + + | EGFR | 47 (L) | >60 mL/min | [facility] | | | - | | | LABORATORY | | | [facility] | | | SERVICES, | | | | | | CORE | | + + + + + + | EGFR NON | 38 (L) | >60 mL/min | [facility] | | | -[facility] | | | LABORATORY | | | [facility] | | | SERVICES, | | | | | | CORE | | + + + + + + | SODIUM, | 144 | 136 - 145 | [facility] | | | PLASMA | | mmol/L | LABORATORY | | | (LAB) | | | SERVICES, | | | | | | CORE | | + + + + + + | POTASSIUM, | 4.9 | 3.4 - 5.0 | [facility] | | | PLASMA | | mmol/L | LABORATORY | | | (LAB) | | | SERVICES, | | | | | | CORE | | + + + + + + | CHLORIDE, | 115 (H) | 97 - 108 mmol/L | [facility] | | | PLASMA | | | LABORATORY | | | (LAB) | | | SERVICES, | | | | | | CORE | | + + + + + + | TOTAL CO2, | 18 (L) | 21 - 32 mmol/L | [facility] | | | PLASMA | | | LABORATORY | | | (LAB) | | | SERVICES, | | | | | | CORE | | + + + + + + | CALCIUM, | 8.4 (L) | 8.6 - 10.2 | [facility] | | | PLASMA | | mg/dL | LABORATORY | | | (LAB) | | | SERVICES, | | | | | | CORE | | + + + + + + | ANION GAP | 11 | mmol/L | [facility] | | | | | | LABORATORY | | | | | | SERVICES, | | | | | | CORE | | + + + + + + | POTASSIUM | No Hemo | | [facility] | | | CMNT | | | LABORATORY | | | | | | SERVICES, | | | | | | CORE | | + + + + + + + + | Specimen | + + | Blood - Blood | + + + + + | Narrative | Performed At | + + + | GFR is estimated using the MDRD equation recommended by the | [facility] | | National Kidney Disease Education Program. Estimated GFR | LABORATORY | | Interpretive Information: <60 mL/min/1.73 sq m | SERVICES, CORE | | Chronic Kidney Disease <15 mL/min/1.73 sq m | | | Kidney Failure Estimated GFR greater that 60 mL/min/1.73 sq m is of | | | limited clinical value. The MDRD equation is not valid in the | | | following situations: - Patients under 18 years of age - Severe | | | malnutrition or obesity - Vegetarian diet - Rapidly changing kidney | | | function | | + + + + + + + + | Performing | Address | City/State/Zipcode | Phone Number | | Organization | | | | + + + + + | [facility] | [address] | [place] [address] | | | [facility] | [address] | | | + + + + + CAPILLARY BLOOD GLUCOSE (NO CHG), POC (08/29/2014 12:56 PM PDT) + +---------+ + + + | Component | Value | Ref Range | Performed | Pathologist | | | | | At | Signature | + +---------+ + + + | BLOOD | 198 (H) | 60 - 99 mg/dL | [facility] - | | | GLUCOSE, | | | [facility] | | | POC | | | [facility] | | | | | | OF CARE | | | | | | TESTS | | + +---------+ + + + + + | Specimen | + + | | + + + + + + + | Performing | Address | City/State/Zipcode | Phone Number | | Organization | | | | + + + + + | [facility] | [address] | [place], [place] | | | [facility] | [address] | [address] | | | TESTS | | | | + + + + + CAPILLARY BLOOD GLUCOSE (NO CHG), POC (08/29/2014 8:11 AM PDT) + +---------+ + + + | Component | Value | Ref Range | Performed | Pathologist | | | | | At | Signature | + +---------+ + + + | BLOOD | 129 (H) | 60 - 99 mg/dL | [facility] - | | | GLUCOSE, | | | [facility] | | | POC | | | [facility] | | | | | | OF CARE | | | | | | TESTS | | + +---------+ + + + + + | Specimen | + + | | + + + + + + + | Performing | Address | City/State/Zipcode | Phone Number | | Organization | | | | + + + + + | [facility] | [address] | [place], [place] | | | [facility] | [facility] | [address] | | | TESTS | | | | + + + + + CAPILLARY BLOOD GLUCOSE (NO CHG) POC (08/29/2014 6:58 AM PDT) + +---------+ + + + | Component | Value | Ref Range | Performed | Pathologist | | | | | At | Signature | + +---------+ + + + | BLOOD | 112 (H) | 60 - 99 mg/dL | [facility] - | | | GLUCOSE, | | | [facility] | | | POC | | | [place] | | | | | | OF CARE | | | | | | TESTS | | + +---------+ + + + + + | Specimen | + + | | + + + + + + + | Performing | Address | City/State/Zipcode | Phone Number | | Organization | | | | + + + + + | [facility] | [address] | [place], [place] | | | [facility] | [facility] | [address] | | | TESTS | | | | + + + + + CAPILLARY BLOOD GLUCOSE (NO CHG), POC (08/29/2014 6:04 AM PDT) + +---------+ + + + | Component | Value | Ref Range | Performed | Pathologist | | | | | At | Signature | + +---------+ + + + | BLOOD | 190 (H) | 60 - 99 mg/dL | [facility] - | | | GLUCOSE, | | | [facility] | | | POC | | | [facility] | | | | | | OF CARE | | | | | | TESTS | | + +---------+ + + + + + | Specimen | + + | | + + + + + + + | Performing | Address | City/State/Zipcode | Phone Number | | Organization | | | | + + + + + | [facility] | [address] | [place], [place] | | | [facility] | [address] | [address] | | | TESTS | | | | + + + + + CBC (HEMOGRAM) ONLY (08/29/2014 5:24 AM PDT) + + + + + + | Component | Value | Ref Range | Performed | Pathologist | | | | | At | Signature | + + + + + + | WHITE CELL | 14.16 (H) | 4.40 - 11.00 | [facility] | | | COUNT | | K/cu mm | LABORATORY | | | | | | SERVICES, | | | | | | CORE | | + + + + + + | RED CELL | 3.60 (L) | 4.50 - 6.00 | [facility] | | | COUNT | | M/cu mm | LABORATORY | | | | | | SERVICES, | | | | | | CORE | | + + + + + + | HEMOGLOBIN | 11.4 (L) | 13.5 - 17.5 | [facility] | | | | | g/dL | LABORATORY | | | | | | SERVICES, | | | | | | CORE | | + + + + + + | HEMATOCRIT | 34.6 (L) | 41.0 - 53.0 % | [facility] | | | | | | LABORATORY | | | | | | SERVICES, | | | | | | CORE | | + + + + + + | MCV | 96.1 (H) | 80.0 - 96.0 fL | [facility] | | | | | | LABORATORY | | | | | | SERVICES, | | | | | | CORE | | + + + + + + | MCHC | 32.9 | 33.0 - 35.5 | [facility] | | | | | g/dL | LABORATORY | | | | | | SERVICES, | | | | | | CORE | | + + + + + + | RDW SD | 54.5 (H) | 35.1 - 46.3 fL | [facility] | | | | | | LABORATORY | | | | | | SERVICES, | | | | | | CORE | | + + + + + + | PLATELET | 167 | 150 - 400 K/cu | [facility] | | | COUNT | | mm | LABORATORY | | | | | | SERVICES, | | | | | | CORE | | + + + + + + | MPV | 11.1 | 9.7 - 12.3 fL | [facility] | | | | | | LABORATORY | | | | | | SERVICES, | | | | | | CORE | | + + + + + + | NRBC% | 0.0 | 0.0 - 0.3 % | [facility] | | | | | | LABORATORY | | | | | | SERVICES, | | | | | | CORE | | + + + + + + | NRBC# | 0.00 | 0.00 - 0.02 | [facility] | | | | | K/cu mm | LABORATORY | | | | | | SERVICES, | | | | | | CORE | | + + + + + + + + | Specimen | + + | Blood - Blood | + + + + + + + | Performing | Address | City/State/Zipcode | Phone Number | | Organization | | | | + + + + + | [facility] | [address] | [place] [address] | | | SERVICES, CORE | [address] | | | + + + + + RENAL FUNCTION SET (NA,K,CL,CO2,BUN,CREAT,GLUC,CA,PHOS,ALB ) (08/29/2014 5:24 AM PDT) + + + + + + | Component | Value | Ref Range | Performed | Pathologist | | | | | At | Signature | + + + + + + | GLUCOSE, | 195 (H) | 60 - 99 mg/dL | [facility] | | | PLASMA | | | LABORATORY | | | (LAB) | | | SERVICES, | | | | | | CORE | | + + + + + + | BUN, PLASMA | 39 (H) | 6 - 20 mg/dL | [facility] | | | (LAB) | | | LABORATORY | | | | | | SERVICES, | | | | | | CORE | | + + + + + + | CREATININE | 1.82 (H) | 0.70 - 1.30 | [facility] | | | PLASMA | | mg/dL | LABORATORY | | | (LAB) | | | SERVICES, | | | | | | CORE | | + + + + + + | EGFR | 44 (L) | >60 mL/min | [facility] | | | - | | | LABORATORY | | | [facility] | | | SERVICES, | | | | | | CORE | | + + + + + + | EGFR NON | 36 (L) | >60 mL/min | [facility] | | | -[facility] | | | LABORATORY | | | [facility] | | | SERVICES, | | | | | | CORE | | + + + + + + | SODIUM, | 142 | 136 - 145 | [facility] | | | PLASMA | | mmol/L | LABORATORY | | | (LAB) | | | SERVICES, | | | | | | CORE | | + + + + + + | POTASSIUM, | 4.5 | 3.4 - 5.0 | [facility] | | | PLASMA | | mmol/L | LABORATORY | | | (LAB) | | | SERVICES, | | | | | | CORE | | + + + + + + | CHLORIDE, | 111 (H) | 97 - 108 mmol/L | [facility] | | | PLASMA | | | LABORATORY | | | (LAB) | | | SERVICES, | | | | | | CORE | | + + + + + + | TOTAL CO2, | 23 | 21 - 32 mmol/L | [facility] | | | PLASMA | | | LABORATORY | | | (LAB) | | | SERVICES, | | | | | | CORE | | + + + + + + | CALCIUM, | 8.5 (L) | 8.6 - 10.2 | [facility] | | | PLASMA | | mg/dL | LABORATORY | | | (LAB) | | | SERVICES, | | | | | | CORE | | + + + + + + | ALBUMIN, | 3.2 (L) | 3.5 - 4.7 g/dL | [facility] | | | PLASMA | | | LABORATORY | | | (LAB) | | | SERVICES, | | | | | | CORE | | + + + + + + | PHOSPHORUS, | 3.2 | 2.4 - 4.7 mg/dL | [facility] | | | PLASMA | | | LABORATORY | | | (LAB) | | | SERVICES, | | | | | | CORE | | + + + + + + | POTASSIUM | No Hemo | | [facility] | | | CMNT | | | LABORATORY | | | | | | SERVICES, | | | | | | CORE | | + + + + + + | ANION GAP | 8 | mmol/L | [facility] | | | | | | LABORATORY | | | | | | SERVICES, | | | | | | CORE | | + + + + + + | ANION | 10 | 4 - 11 mmol/L | [facility] | | | GAP(ALB | | | LABORATORY | | | CORRECTED) | | | SERVICES, | | | | | | CORE | | + + + + + + + + | Specimen | + + | Blood - Blood | + + + + + | Narrative | Performed At | + + + | GFR is estimated using the MDRD equation recommended by the | [facility] | | National Kidney Disease Education Program. Estimated GFR | LABORATORY | | Interpretive Information: <60 mL/min/1.73 sq m | SERVICES, CORE | | Chronic Kidney Disease <15 mL/min/1.73 sq m | | | Kidney Failure Estimated GFR greater that 60 mL/min/1.73 sq m is of | | | limited clinical value. The MDRD equation is not valid in the | | | following situations: - Patients under 18 years of age - Severe | | | malnutrition or obesity - Vegetarian diet - Rapidly changing kidney | | | function | | + + + + + + + + | Performing | Address | City/State/Zipcode | Phone Number | | Organization | | | | + + + + + | [facility] | [address] | [place] [address] | | | SERVICES, CORE | [address] | | | + + + + + MAGNESIUM, PLASMA (08/29/2014 5:24 AM PDT) + +---------+ + + + | Component | Value | Ref Range | Performed | Pathologist | | | | | At | Signature | + +---------+ + + + | MAGNESIUM,P | 2.6 (H) | 1.8 - 2.5 mg/dL | [facility] | | | LASMA | | | LABORATORY | | | | | | SERVICES, | | | | | | CORE | | + +---------+ + + + + + | Specimen | + + | Blood - Blood | + + + + + + + | Performing | Address | City/State/Zipcode | Phone Number | | Organization | | | | + + + + + | [facility] | [address] | [place] [address] | | | SERVICES, MAT[place] | [address] | | | + + + + + CAPILLARY BLOOD GLUCOSE (NO CHG), POC (08/29/2014 5:04 AM PDT) + +---------+ + + + | Component | Value | Ref Range | Performed | Pathologist | | | | | At | Signature | + +---------+ + + + | BLOOD | 191 (H) | 60 - 99 mg/dL | [facility] - | | | GLUCOSE, | | | [facility] | | | POC | | | [facility] | | | | | | OF CARE | | | | | | TESTS | | + +---------+ + + + + + | Specimen | + + | | + + + + + + + | Performing | Address | City/State/Zipcode | Phone Number | | Organization | | | | + + + + + | [facility] | [address] | [place], [place] | | | [facility] | [address] | [address] | | | TESTS | | | | + + + + + CAPILLARY BLOOD GLUCOSE (NO CHG), POC (08/29/2014 3:57 AM PDT) + +---------+ + + + | Component | Value | Ref Range | Performed | Pathologist | | | | | At | Signature | + +---------+ + + + | BLOOD | 206 (H) | 60 - 99 mg/dL | [facility] - | | | GLUCOSE, | | | [facility] | | | POC | | | [facility] | | | | | | OF CARE | | | | | | TESTS | | + +---------+ + + + + + | Specimen | + + | | + + + + + + + | Performing | Address | City/State/Zipcode | Phone Number | | Organization | | | | + + + + + | [facility] | [address] | [place], [place] | | | [facility] | [address] | [address] | | | TESTS | | | | + + + + + CAPILLARY BLOOD GLUCOSE (NO CHG), POC (08/29/2014 2:39 AM PDT) + +---------+ + + + | Component | Value | Ref Range | Performed | Pathologist | | | | | At | Signature | + +---------+ + + + | BLOOD | 185 (H) | 60 - 99 mg/dL | [facility] - | | | GLU[facility], | | | [facility] | | | POC | | | [facility] | | | | | | [facility] | | | | | | TESTS | | + +---------+ + + + + + | Specimen | + + | | + + + + + + + | Performing | Address | City/State/Zipcode | Phone Number | | Organization | | | | + + + + + | [facility] | [address] | [place], [place] | | | [facility] | [address] | [address] | | | TESTS | | | | + + + + + CAPILLARY BLOOD GLUCOSE (NO CHG), POC (08/28/2014 11:53 PM PDT) + +---------+ + + + | Component | Value | Ref Range | Performed | Pathologist | | | | | At | Signature | + +---------+ + + + | BLOOD | 152 (H) | 60 - 99 mg/dL | [facility] | | | [facility], | | | [facility] | | | POC | | | [facility] | | | | | | [facility] | | | | | | TESTS | | + +---------+ + + + + + | Specimen | + + | | + + + + + + + | Performing | Address | City/State/Zipcode | Phone Number | | Organization | | | | + + + + + | [facility] | [address] | [place], [place] | | | [facility] | [address] | [address] | | | TESTS | | | | + + + + + CAPILLARY BLOOD GLUCOSE (NO CHG), POC (08/28/2014 9:55 PM PDT) + +---------+ + + + | Component | Value | Ref Range | Performed | Pathologist | | | | | At | Signature | + +---------+ + + + | BLOOD | 159 (H) | 60 - 99 mg/dL | [facility] | | | [facility], | | | [facility] | | | POC | | | [facility] | | | | | | [facility] | | | | | | TESTS | | + +---------+ + + + + + | Specimen | + + | | + + + + + + + | Performing | Address | City/State/Zipcode | Phone Number | | Organization | | | | + + + + + | [facility] | [address] | [place], [place] | | | [facility] | [address] | [address] | | | TESTS | | | | + + + + + CAPILLARY BLOOD GLUCOSE (NO CHG), POC (08/28/2014 7:44 PM PDT) + +---------+ + + + | Component | Value | Ref Range | Performed | Pathologist | | | | | At | Signature | + +---------+ + + + | BLOOD | 146 (H) | 60 - 99 mg/dL | [facility] | | | [facility], | | | [facility] | | | POC | | | [facility] | | | | | | [facility] | | | | | | TESTS | | + +---------+ + + + + + | Specimen | + + | | + + + + + + + | Performing | Address | City/State/Zipcode | Phone Number | | Organization | | | | + + + + + | [facility] | [address] | [place], [place] | | | [facility] | [address] | [address] | | | TESTS | | | | + + + + + CAPILLARY BLOOD GLUCOSE (NO CHG), POC (08/28/2014 6:00 PM PDT) + +---------+ + + + | Component | Value | Ref Range | Performed | Pathologist | | | | | At | Signature | + +---------+ + + + | BLOOD | 136 (H) | 60 - 99 mg/dL | [facility] | | | [facility], | | | [facility] | | | POC | | | [facility] | | | | | | [facility] | | | | | | TESTS | | + +---------+ + + + + + | Specimen | + + | | + + + + + + + | Performing | Address | City/State/Zipcode | Phone Number | | Organization | | | | + + + + + | [facility] | [address] | [place], [place] | | | [facility] | [address] | [address] | | | TESTS | | | | + + + + + CAPILLARY BLOOD GLUCOSE (NO CHG), POC (08/28/2014 4:56 PM PDT) + +---------+ + + + | Component | Value | Ref Range | Performed | Pathologist | | | | | At | Signature | + +---------+ + + + | BLOOD | 157 (H) | 60 - 99 mg/dL | [facility] | | | [facility], | | | [facility] | | | POC | | | [facility] | | | | | | [facility] | | | | | | TESTS | | + +---------+ + + + + + | Specimen | + + | | + + + + + + + | Performing | Address | City/State/Zipcode | Phone Number | | Organization | | | | + + + + + | [facility] | [address] | [place], [place] | | | [facility] | [address] | [address] | | | TESTS | | | | + + + + + CAPILLARY BLOOD GLUCOSE (NO CHG), POC (08/28/2014 3:50 PM PDT) + +---------+ + + + | Component | Value | Ref Range | Performed | Pathologist | | | | | At | Signature | + +---------+ + + + | BLOOD | 172 (H) | 60 - 99 mg/dL | [facility] | | | [facility], | | | [facility] | | | POC | | | [facility] | | | | | | [facility] | | | | | | TESTS | | + +---------+ + + + + + | Specimen | + + | | + + + + + + + | Performing | Address | City/State/Zipcode | Phone Number | | Organization | | | | + + + + + | [facility] | [address] | [place], [place] | | | [facility] | [address] | [address] | | | TESTS | | | | + + + + + X-RAY ABD LTD FEEDING TUBE EVAL (08/28/2014 3:38 PM PDT) + + + + + + | Component | Value | Ref Range | Performed | Pathologist | | | | | At | Signature | + + + + + + | ABD LTD | INDICATION:Evaluate | | | | | FEEDING | Dobbhoff tube after | | | | | TUBE EVAL | extubation | | | | | | TECHNIQUE:Portable | | | | | | upright view of the | | | | | | upper abdomen is | | | | | | compared to one day ago. | | | | | | | | | | | | FINDINGS/IMPRESSION:Dobb | | | | | | radhika tube tip unchanged | | | | | | in position in the body | | | | | | of the stomach. | | | | | | Stomachless distended. | | | | | | Attending Radiologists: | | | | | | ALLISON CLINE MDAuthor: | | | | | | ALLISON CLINE MD I have | | | | | | personally viewed this | | | | | | procedure/exam, reviewed | | | | | | this report, and | | | | | | madechanges to it where | | | | | | appropriate. | | | | | | Final/Electronically | | | | | | maria eugenia / ALLISON CLINE | | | | | | 08/28/2014 15:51 PM | | | | + + + + + + + + | Specimen | + + | | + + + +---------+ + + | Performing | Address | City/State/Zipcode | Phone Number | | Organization | | | | + +---------+ + + | [facility] | [facility] | | | | + +---------+ + + MAGNESIUM, PLASMA (08/28/2014 2:10 PM PDT) + +---------+ + + + | Component | Value | Ref Range | Performed | Pathologist | | | | | At | Signature | + +---------+ + + + | MAGNESIUM,P | 2.7 (H) | 1.8 - 2.5 mg/dL | [facility] | | | [facility] | | | LABORATORY | | | | | | SERVICES, | | | | | | CORE | | + +---------+ + + + + + | Specimen | + + | Blood - Blood | + + + + + + + | Performing | Address | City/State/Zipcode | Phone Number | | Organization | | | | + + + + + | [facility] | [address] | [place] [address] | | | SERVICES, CORE | [address] | | | + + + + + RENAL FUNCTION SET (NA,K,CL,CO2,BUN,CREAT,GLUC,CA,PHOS,ALB ) (08/28/2014 2:10 PM PDT) + + + + + + | Component | Value | Ref Range | Performed | Pathologist | | | | | At | Signature | + + + + + + | GLUCOSE, | 134 (H) | 60 - 99 mg/dL | [facility] | | | PL[facility]MA | | | LABORATORY | | | (LAB) | | | SERVICES, | | | | | | CORE | | + + + + + + | BUN, PLASMA | 32 (H) | 6 - 20 mg/dL | [facility] | | | (LAB) | | | LABORATORY | | | | | | SERVICES, | | | | | | CORE | | + + + + + + | CREATININE | 1.82 (H) | 0.70 - 1.30 | [facility] | | | PLASMA | | mg/dL | LABORATORY | | | (LAB) | | | SERVICES, | | | | | | CORE | | + + + + + + | EGFR | 44 (L) | >60 mL/min | [facility] | | | - | | | LABORATORY | | | [facility] | | | SERVICES, | | | | | | CORE | | + + + + + + | EGFR NON | 36 (L) | >60 mL/min | [facility] | | | [facility] | | | LABORATORY | | | [facility] | | | SERVICES, | | | | | | CORE | | + + + + + + | SODIUM, | 142 | 136 - 145 | [facility] | | | PLASMA | | mmol/L | LABORATORY | | | (LAB) | | | SERVICES, | | | | | | CORE | | + + + + + + | POTASSIUM, | 4.8 | 3.4 - 5.0 | [facility] | | | PLASMA | | mmol/L | LABORATORY | | | (LAB) | | | SERVICES, | | | | | | CORE | | + + + + + + | CHLORIDE, | 110 (H) | 97 - 108 mmol/L | [facility] | | | PLASMA | | | LABORATORY | | | (LAB) | | | SERVICES, | | | | | | CORE | | + + + + + + | TOTAL CO2, | 25 | 21 - 32 mmol/L | [facility] | | | PLASMA | | | LABORATORY | | | (LAB) | | | SERVICES, | | | | | | CORE | | + + + + + + | CALCIUM, | 8.4 (L) | 8.6 - 10.2 | [facility] | | | PLASMA | | mg/dL | LABORATORY | | | (LAB) | | | SERVICES, | | | | | | CORE | | + + + + + + | ALBUMIN, | 3.1 (L) | 3.5 - 4.7 g/dL | [facility] | | | PLASMA | | | LABORATORY | | | (LAB) | | | SERVICES, | | | | | | CORE | | + + + + + + | PHOSPHORUS, | 2.0 (L) | 2.4 - 4.7 mg/dL | [facility] | | | PLASMA | | | LABORATORY | | | (LAB) | | | SERVICES, | | | | | | CORE | | + + + + + + | POTASSIUM | No Hemo | | [facility] | | | CMNT | | | LABORATORY | | | | | | SERVICES, | | | | | | CORE | | + + + + + + | ANION GAP | 7 | mmol/L | [facility] | | | | | | LABORATORY | | | | | | SERVICES, | | | | | | CORE | | + + + + + + | ANION | 9 | 4 - 11 mmol/L | [facility] | | | GAP(ALB | | | LABORATORY | | | CORRECTED) | | | SERVICES, | | | | | | CORE | | + + + + + + + + | Specimen | + + | Blood - Blood | + + + + + | Narrative | Performed At | + + + | GFR is estimated using the MDRD equation recommended by the | [facility] | | National Kidney Disease Education Program. Estimated GFR | LABORATORY | | Interpretive Information: <60 mL/min/1.73 sq m | SERVICES, CORE | | Chronic Kidney Disease <15 mL/min/1.73 sq m | | | Kidney Failure Estimated GFR greater that 60 mL/min/1.73 sq m is of | | | limited clinical value. The MDRD equation is not valid in the | | | following situations: - Patients under 18 years of age - Severe | | | malnutrition or obesity - Vegetarian diet - Rapidly changing kidney | | | function | | + + + + + + + + | Performing | Address | City/State/Zipcode | Phone Number | | Organization | | | | + + + + + | [facility] | [address] | [place] [address] | | | SERVICES, CORE | [address] | | | + + + + + CAPILLARY BLOOD GLUCOSE (NO CHG), POC (08/28/2014 2:07 PM PDT) + +---------+ + + + | Component | Value | Ref Range | Performed | Pathologist | | | | | At | Signature | + +---------+ + + + | BLOOD | 142 (H) | 60 - 99 mg/dL | [facility] | | | GLUCOSE, | | | [facility] | | | POC | | | [facility] | | | | | | OF CARE | | | | | | TESTS | | + +---------+ + + + + + | Specimen | + + | | + + + + + + + | Performing | Address | City/State/Zipcode | Phone Number | | Organization | | | | + + + + + | [facility] | [address] | [place], [place] | | | [facility] | [address] | [address] | | | TESTS | | | | + + + + + CAPILLARY BLOOD GLUCOSE (NO CHG), POC (08/28/2014 12:55 PM PDT) + +---------+ + + + | Component | Value | Ref Range | Performed | Pathologist | | | | | At | Signature | + +---------+ + + + | BLOOD | 138 (H) | 60 - 99 mg/dL | [facility] | | | GLUCOSE, | | | [facility] | | | POC | | | [facility] | | | | | | OF CARE | | | | | | TESTS | | + +---------+ + + + + + | Specimen | + + | | + + + + + + + | Performing | Address | City/State/Zipcode | Phone Number | | Organization | | | | + + + + + | [facility] | [address] | [place], [place] | | | [facility] | [facility] | [address] | | | TESTS | | | | + + + + + CAPILLARY BLOOD GLUCOSE (NO CHG), POC (08/28/2014 11:36 AM PDT) + +---------+ + + + | Component | Value | Ref Range | Performed | Pathologist | | | | | At | Signature | + +---------+ + + + | BLOOD | 143 (H) | 60 - 99 mg/dL | [facility] - | | | GLUCOSE, | | | [facility] | | | POC | | | [facility] | | | | | | OF CARE | | | | | | TESTS | | + +---------+ + + + + + | Specimen | + + | | + + + + + + + | Performing | Address | City/State/Zipcode | Phone Number | | Organization | | | | + + + + + | [facility] | [address] | [place], [place] | | | [facility] | [facility] | [address] | | | TESTS | | | | + + + + + CAPILLARY BLOOD GLUCOSE (NO CHG), POC (08/28/2014 10:31 AM PDT) + +---------+ + + + | Component | Value | Ref Range | Performed | Pathologist | | | | | At | Signature | + +---------+ + + + | BLOOD | 138 (H) | 60 - 99 mg/dL | [facility] | | | GLUCOSE, | | | [facility] | | | POC | | | [facility] | | | | | | OF CARE | | | | | | TESTS | | + +---------+ + + + + + | Specimen | + + | | + + + + + + + | Performing | Address | City/State/Zipcode | Phone Number | | Organization | | | | + + + + + | [facility] | [address] | [place], [place] | | | [facility] | [facility] | [address] | | | TESTS | | | | + + + + + CAPILLARY BLOOD GLUCOSE (NO CHG), POC (08/28/2014 9:27 AM PDT) + +---------+ + + + | Component | Value | Ref Range | Performed | Pathologist | | | | | At | Signature | + +---------+ + + + | BLOOD | 144 (H) | 60 - 99 mg/dL | [facility] | | | GLUCOSE, | | | [facility] | | | POC | | | [facility] | | | | | | OF CARE | | | | | | TESTS | | + +---------+ + + + + + | Specimen | + + | | + + + + + + + | Performing | Address | City/State/Zipcode | Phone Number | | Organization | | | | + + + + + | [facility] | [address] | [place], [place] | | | [facility] | [address] | [address] | | | TESTS | | | | + + + + + X-RAY PORTABLE CHEST 1 VIEW (08/28/2014 8:30 AM PDT) + + + + + + | Component | Value | Ref Range | Performed | Pathologist | | | | | At | Signature | + + + + + + | X-RAY | EXAM: TN CHEST 1 VIEW | | | | | PORTABLE | 08/28/14 08:30 HISTORY: | | | | | CHEST 1 | 79-year-old male with | | | | | 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 COMPARISON: | | | | | | Chest radiograph 08/27/14 | | | | | | and PET/CT 08/09/14. | | | | | | FINDINGS: The | | | | | | endotracheal tube, | | | | | | enteric tube and neck | | | | | | soft tissue drain are | | | | | | unchanged inposition. | | | | | | Cardiac silhouette is | | | | | | normal in size and the | | | | | | mediastinal contour | | | | | | iswithin normal limits. | | | | | | There is increasing | | | | | | groundglass | | | | | | opacification in the | | | | | | right mid and lower | | | | | | lung.Left perihilar | | | | | | atelectasis has | | | | | | improved. No new | | | | | | consolidation, | | | | | | pneumothorax,pulmonary | | | | | | edema or pleural | | | | | | effusion is appreciated. | | | | | | The regional | | | | | | osseousstructures are | | | | | | unremarkable. | | | | | | IMPRESSION: Increasing | | | | | | groundglass | | | | | | opacification in the | | | | | | right mid and lower lung | | | | | | is favoredto represent | | | | | | a combination of | | | | | | atelectasis and retained | | | | | | secretions. | | | | | | However,some of this | | | | | | apparent increase may be | | | | | | related to patient | | | | | | rotation and | | | | | | overlyingsoft | | | | | | tissue.Improved left | | | | | | perihilar atelectasis. | | | | | | Attending Radiologists: | | | | | | MELITON ROCKWELL, | | | | | | MDAuthor: RACHEAL LEWIS, | | | | | | I have personally | | | | | | viewed this | | | | | | procedure/exam, reviewed | | | | | | this report, and | | | | | | madechanges to it where | | | | | | appropriate. | | | | | | Final/Electronically | | | | | | signed / MELITON | | | | | | PRIMACK 08/28/2014 11:49 | | | | | | AM | | | | + + + + + + + + | Specimen | + + | | + + + +---------+ + + | Performing | Address | City/State/Zipcode | Phone Number | | Organization | | | | + +---------+ + + | [facility] | | | | [facility] | | | | + +---------+ + + CAPILLARY BLOOD GLUCOSE (NO CHG), POC (08/28/2014 8:06 AM PDT) + +---------+ + + + | Component | Value | Ref Range | Performed | Pathologist | | | | | At | Signature | + +---------+ + + + | BLOOD | 139 (H) | 60 - 99 mg/dL | [facility] | | | GLUCOSE, | | | [facility] | | | POC | | | [facility] | | | | | | OF CARE | | | | | | TESTS | | + +---------+ + + + + + | Specimen | + + | | + + + + + + + | Performing | Address | City/State/Zipcode | Phone Number | | Organization | | | | + + + + + | [facility] | [address] | [place], [place] | | | [facility] | [address] | [address] | | | TESTS | | | | + + + + + CAPILLARY BLOOD GLUCOSE (NO CHG), POC (08/28/2014 6:59 AM PDT) + +---------+ + + + | Component | Value | Ref Range | Performed | Pathologist | | | | | At | Signature | + +---------+ + + + | BLOOD | 153 (H) | 60 - 99 mg/dL | [facility] - | | | GLUCOSE, | | | [facility] | | | POC | | | [facility] | | | | | | OF CARE | | | | | | TESTS | | + +---------+ + + + + + | Specimen | + + | | + + + + + + + | Performing | Address | City/State/Zipcode | Phone Number | | Organization | | | | + + + + + | [facility] | [address] | [place], [place] | | | [facility] | [address] | [address] | | | TESTS | | | | + + + + + CAPILLARY BLOOD GLUCOSE (NO CHG), POC (08/28/2014 5:56 AM PDT) + +---------+ + + + | Component | Value | Ref Range | Performed | Pathologist | | | | | At | Signature | + +---------+ + + + | BLOOD | 129 (H) | 60 - 99 mg/dL | [facility] - | | | GLUCOSE, | | | [facility] | | | POC | | | [facility] | | | | | | OF CARE | | | | | | TESTS | | + +---------+ + + + + + | Specimen | + + | | + + + + + + + | Performing | Address | City/State/Zipcode | Phone Number | | Organization | | | | + + + + + | [facility] | [address] | [place], [place] | | | [facility] | [address] | [address] | | | TESTS | | | | + + + + + CAPILLARY BLOOD GLUCOSE (NO CHG), POC (08/28/2014 5:10 AM PDT) + +---------+ + + + | Component | Value | Ref Range | Performed | Pathologist | | | | | At | Signature | + +---------+ + + + | BLOOD | 146 (H) | 60 - 99 mg/dL | [facility] | | | GLUCOSE, | | | [facility] | | | POC | | | [facility] | | | | | | OF CARE | | | | | | TESTS | | + +---------+ + + + + + | Specimen | + + | | + + + + + + + | Performing | Address | City/State/Zipcode | Phone Number | | Organization | | | | + + + + + | [facility] | [address] | [place], [place] | | | [facility] | [address] | [address] | | | TESTS | | | | + + + + + CAPILLARY BLOOD GLUCOSE (NO CHG), POC (08/28/2014 4:01 AM PDT) + +---------+ + + + | Component | Value | Ref Range | Performed | Pathologist | | | | | At | Signature | + +---------+ + + + | BLOOD | 158 (H) | 60 - 99 mg/dL | [facility] | | | GLUCOSE, | | | [facility] | | | POC | | | [facility] | | | | | | OF CARE | | | | | | TESTS | | + +---------+ + + + + + | Specimen | + + | | + + + + + + + | Performing | Address | City/State/Zipcode | Phone Number | | Organization | | | | + + + + + | [facility] | [address] | [place], [place] | | | [facility] | [address] | [address] | | | TESTS | | | | + + + + + CAPILLARY BLOOD GLUCOSE (NO CHG), POC (08/28/2014 3:05 AM PDT) + +---------+ + + + | Component | Value | Ref Range | Performed | Pathologist | | | | | At | Signature | + +---------+ + + + | BLOOD | 145 (H) | 60 - 99 mg/dL | [facility] | | | GLUCOSE, | | | [facility] | | | POC | | | [facility] | | | | | | OF CARE | | | | | | TESTS | | + +---------+ + + + + + | Specimen | + + | | + + + + + + + | Performing | Address | City/State/Zipcode | Phone Number | | Organization | | | | + + + + + | [facility] | [address] | [place], [place] | | | [facility] | [address] | [address] | | | TESTS | | | | + + + + + CAPILLARY BLOOD GLUCOSE (NO CHG), POC (08/28/2014 2:07 AM PDT) + +---------+ + + + | Component | Value | Ref Range | Performed | Pathologist | | | | | At | Signature | + +---------+ + + + | BLOOD | 162 (H) | 60 - 99 mg/dL | [facility] - | | | GLUCOSE, | | | [facility] | | | POC | | | [facility] | | | | | | OF CARE | | | | | | TESTS | | + +---------+ + + + + + | Specimen | + + | | + + + + + + + | Performing | Address | City/State/Zipcode | Phone Number | | Organization | | | | + + + + + | [facility] | [address] | [place], [place] | | | [facility] | [address] | [address] | | | TESTS | | | | + + + + + CBC (HEMOGRAM) ONLY (08/28/2014 2:05 AM PDT) + + + + + + | Component | Value | Ref Range | Performed | Pathologist | | | | | At | Signature | + + + + + + | WHITE CELL | 13.07 (H) | 4.40 - 11.00 | [facility] | | | COUNT | | K/cu mm | LABORATORY | | | | | | SERVICES, | | | | | | CORE | | + + + + + + | RED CELL | 3.48 (L) | 4.50 - 6.00 | [facility] | | | COUNT | | M/cu mm | LABORATORY | | | | | | SERVICES, | | | | | | CORE | | + + + + + + | HEMOGLOBIN | 10.8 (L) | 13.5 - 17.5 | [facility] | | | | | g/dL | LABORATORY | | | | | | SERVICES, | | | | | | CORE | | + + + + + + | HEMATOCRIT | 33.2 (L) | 41.0 - 53.0 % | [facility] | | | | | | LABORATORY | | | | | | SERVICES, | | | | | | CORE | | + + + + + + | MCV | 95.4 | 80.0 - 96.0 fL | [facility] | | | | | | LABORATORY | | | | | | SERVICES, | | | | | | CORE | | + + + + + + | MCHC | 32.5 | 33.0 - 35.5 | [facility] | | | | | g/dL | LABORATORY | | | | | | SERVICES, | | | | | | CORE | | + + + + + + | RDW SD | 53.6 (H) | 35.1 - 46.3 fL | [facility] | | | | | | LABORATORY | | | | | | SERVICES, | | | | | | CORE | | + + + + + + | PLATELET | 149 (L) | 150 - 400 K/cu | [facility] | | | COUNT | | mm | LABORATORY | | | | | | SERVICES, | | | | | | CORE | | + + + + + + | MPV | 10.4 | 9.7 - 12.3 fL | [facility] | | | | | | LABORATORY | | | | | | SERVICES, | | | | | | CORE | | + + + + + + | NRBC% | 0.0 | 0.0 - 0.3 % | [facility] | | | | | | LABORATORY | | | | | | SERVICES, | | | | | | CORE | | + + + + + + | NRBC# | 0.00 | 0.00 - 0.02 | [facility] | | | | | K/cu mm | LABORATORY | | | | | | SERVICES, | | | | | | CORE | | + + + + + + + + | Specimen | + + | Blood - Blood | + + + + + + + | Performing | Address | City/State/Zipcode | Phone Number | | Organization | | | | + + + + + | [facility] | [address] | [place] [address] | | | NEFTALY, MATY | [address] | | | + + + + + RENAL FUNCTION SET (NA,K,CL,CO2,BUN,CREAT,GLUC,CA,PHOS,ALB ) (08/28/2014 2:05 AM PDT) + + + + + + | Component | Value | Ref Range | Performed | Pathologist | | | | | At | Signature | + + + + + + | GLUCOSE, | 164 (H) | 60 - 99 mg/dL | [facility] | | | PLASMA | | | LABORATORY | | | (LAB) | | | SERVICES, | | | | | | CORE | | + + + + + + | BUN, PLASMA | 27 (H) | 6 - 20 mg/dL | [facility] | | | (LAB) | | | LABORATORY | | | | | | SERVICES, | | | | | | CORE | | + + + + + + | CREATININE | 1.55 (H) | 0.70 - 1.30 | [facility] | | | PLASMA | | mg/dL | LABORATORY | | | (LAB) | | | SERVICES, | | | | | | CORE | | + + + + + + | EGFR | 52 (L) | >60 mL/min | [facility] | | | - | | | LABORATORY | | | [facility] | | | SERVICES, | | | | | | CORE | | + + + + + + | EGFR NON | 43 (L) | >60 mL/min | [facility] | | | -[facility] | | | LABORATORY | | | [facility] | | | SERVICES, | | | | | | CORE | | + + + + + + | SODIUM, | 141 | 136 - 145 | [facility] | | | PLASMA | | mmol/L | LABORATORY | | | (LAB) | | | SERVICES, | | | | | | CORE | | + + + + + + | POTASSIUM, | 4.5 | 3.4 - 5.0 | [facility] | | | PLASMA | | mmol/L | LABORATORY | | | (LAB) | | | SERVICES, | | | | | | CORE | | + + + + + + | CHLORIDE, | 111 (H) | 97 - 108 mmol/L | [facility] | | | PLASMA | | | LABORATORY | | | (LAB) | | | SERVICES, | | | | | | CORE | | + + + + + + | TOTAL CO2, | 22 | 21 - 32 mmol/L | [facility] | | | PLASMA | | | LABORATORY | | | (LAB) | | | SERVICES, | | | | | | CORE | | + + + + + + | CALCIUM, | 7.5 (L) | 8.6 - 10.2 | [facility] | | | PLASMA | | mg/dL | LABORATORY | | | (LAB) | | | SERVICES, | | | | | | CORE | | + + + + + + | ALBUMIN, | 2.7 (L) | 3.5 - 4.7 g/dL | [facility] | | | PLASMA | | | LABORATORY | | | (LAB) | | | SERVICES, | | | | | | CORE | | + + + + + + | PHOSPHORUS, | 2.2 (L) | 2.4 - 4.7 mg/dL | [facility] | | | PLASMA | | | LABORATORY | | | (LAB) | | | SERVICES, | | | | | | CORE | | + + + + + + | POTASSIUM | No Hemo | | [facility] | | | CMNT | | | LABORATORY | | | | | | SERVICES, | | | | | | CORE | | + + + + + + | ANION GAP | 8 | mmol/L | [facility] | | | | | | LABORATORY | | | | | | SERVICES, | | | | | | CORE | | + + + + + + | ANION | 11 | 4 - 11 mmol/L | [facility] | | | GAP(ALB | | | LABORATORY | | | CORRECTED) | | | SERVICES, | | | | | | CORE | | + + + + + + + + | Specimen | + + | Blood - Blood | + + + + + | Narrative | Performed At | + + + | GFR is estimated using the MDRD equation recommended by the | [facility] | | National Kidney Disease Education Program. Estimated GFR | LABORATORY | | Interpretive Information: <60 mL/min/1.73 sq m | SERVICES, CORE | | Chronic Kidney Disease <15 mL/min/1.73 sq m | | | Kidney Failure Estimated GFR greater that 60 mL/min/1.73 sq m is of | | | limited clinical value. The MDRD equation is not valid in the | | | following situations: - Patients under 18 years of age - Severe | | | malnutrition or obesity - Vegetarian diet - Rapidly changing kidney | | | function | | + + + + + + + + | Performing | Address | City/State/Zipcode | Phone Number | | Organization | | | | + + + + + | [facility] | [address] | [place] [address] | | | SERVICES, CORE | [address] | | | + + + + + MAGNESIUM, PLASMA (08/28/2014 2:05 AM PDT) + +---------+ + + + | Component | Value | Ref Range | Performed | Pathologist | | | | | At | Signature | + +---------+ + + + | MAGNESIUM,P | 1.5 (L) | 1.8 - 2.5 mg/dL | [facility] | | | [facility] | | | LABORATORY | | | | | | SERVICES, | | | | | | CORE | | + +---------+ + + + + + | Specimen | + + | Blood - Blood | + + + + + + + | Performing | Address | City/State/Zipcode | Phone Number | | Organization | | | | + + + + + | [facility] | [address] | [place] [address] | | | SERVICES, CORE | [address] | | | + + + + + CAPILLARY BLOOD GLUCOSE (NO CHG), POC (08/28/2014 1:07 AM PDT) + +---------+ + + + | Component | Value | Ref Range | Performed | Pathologist | | | | | At | Signature | + +---------+ + + + | BLOOD | 177 (H) | 60 - 99 mg/dL | [facility] | | | GLUCOSE, | | | [facility] | | | POC | | | [facility] | | | | | | OF CARE | | | | | | TESTS | | + +---------+ + + + + + | Specimen | + + | | + + + + + + + | Performing | Address | City/State/Zipcode | Phone Number | | Organization | | | | + + + + + | [facility] | [address] | [place], [place] | | | [facility] | [facility] | [phone] | | | TESTS | | | | + + + + + CAPILLARY BLOOD GLUCOSE (NO CHG), POC (08/28/2014 12:01 AM PDT) + +---------+ + + + | Component | Value | Ref Range | Performed | Pathologist | | | | | At | Signature | + +---------+ + + + | BLOOD | 199 (H) | 60 - 99 mg/dL | [facility] - | | | GLUCOSE, | | | [facility] | | | POC | | | [facility] | | | | | | OF CARE | | | | | | TESTS | | + +---------+ + + + + + | Specimen | + + | | + + + + + + + | Performing | Address | City/State/Zipcode | Phone Number | | Organization | | | | + + + + + | [facility] | [address] | [place], [place] | | | [facility] | [address] | [address] | | | TESTS | | | | + + + + + CBC (HEMOGRAM) ONLY (08/27/2014 8:13 PM PDT) + + + + + + | Component | Value | Ref Range | Performed | Pathologist | | | | | At | Signature | + + + + + + | WHITE CELL | 13.22 (H) | 4.40 - 11.00 | [facility] | | | COUNT | | K/cu mm | LABORATORY | | | | | | SERVICES, | | | | | | CORE | | + + + + + + | RED CELL | 3.62 (L) | 4.50 - 6.00 | [facility] | | | COUNT | | M/cu mm | LABORATORY | | | | | | SERVICES, | | | | | | CORE | | + + + + + + | HEMOGLOBIN | 11.4 (L) | 13.5 - 17.5 | [facility] | | | | | g/dL | LABORATORY | | | | | | SERVICES, | | | | | | CORE | | + + + + + + | HEMATOCRIT | 34.9 (L) | 41.0 - 53.0 % | [facility] | | | | | | LABORATORY | | | | | | SERVICES, | | | | | | CORE | | + + + + + + | MCV | 96.4 (H) | 80.0 - 96.0 fL | [facility] | | | | | | LABORATORY | | | | | | SERVICES, | | | | | | CORE | | + + + + + + | MCHC | 32.7 | 33.0 - 35.5 | [facility] | | | | | g/dL | LABORATORY | | | | | | SERVICES, | | | | | | CORE | | + + + + + + | RDW SD | 54.4 (H) | 35.1 - 46.3 fL | [facility] | | | | | | LABORATORY | | | | | | SERVICES, | | | | | | CORE | | + + + + + + | PLATELET | 156 | 150 - 400 K/cu | [facility] | | | COUNT | | mm | LABORATORY | | | | | | SERVICES, | | | | | | CORE | | + + + + + + | MPV | 10.5 | 9.7 - 12.3 fL | [facility] | | | | | | LABORATORY | | | | | | SERVICES, | | | | | | CORE | | + + + + + + | NRBC% | 0.0 | 0.0 - 0.3 % | [facility] | | | | | | LABORATORY | | | | | | SERVICES, | | | | | | CORE | | + + + + + + | NRBC# | 0.00 | 0.00 - 0.02 | [facility] | | | | | K/cu mm | LABORATORY | | | | | | SERVICES, | | | | | | CORE | | + + + + + + + + | Specimen | + + | Blood - Blood | + + + + + + + | Performing | Address | City/State/Zipcode | Phone Number | | Organization | | | | + + + + + | [facility] | [address] | [place] [address] | | | SERVICES, CORE | [address] | | | + + + + + CAPILLARY BLOOD GLUCOSE (NO CHG), POC (08/27/2014 7:20 PM PDT) + +---------+ + + + | Component | Value | Ref Range | Performed | Pathologist | | | | | At | Signature | + +---------+ + + + | BLOOD | 170 (H) | 60 - 99 mg/dL | [facility] - | | | GLUCOSE, | | | [facility] | | | POC | | | [facility] | | | | | | OF CARE | | | | | | TESTS | | + +---------+ + + + + + | Specimen | + + | | + + + + + + + | Performing | Address | City/State/Zipcode | Phone Number | | Organization | | | | + + + + + | [facility] | [address] | [place], [place] | | | [facility] | [facility] | [address] | | | TESTS | | | | + + + + + RENAL FUNCTION SET (NA,K,CL,CO2,BUN,CREAT,GLUC,CA,PHOS,ALB ) (08/27/2014 6:45 PM PDT) + + + + + + | Component | Value | Ref Range | Performed | Pathologist | | | | | At | Signature | + + + + + + | GLUCOSE, | 157 (H) | 60 - 99 mg/dL | [facility] | | | PLASMA | | | LABORATORY | | | (LAB) | | | SERVICES, | | | | | | CORE | | + + + + + + | BUN, PLASMA | 26 (H) | 6 - 20 mg/dL | [facility] | | | (LAB) | | | LABORATORY | | | | | | SERVICES, | | | | | | CORE | | + + + + + + | CREATININE | 1.31 (H) | 0.70 - 1.30 | [facility] | | | PLASMA | | mg/dL | LABORATORY | | | (LAB) | | | SERVICES, | | | | | | CORE | | + + + + + + | EGFR | >60 | >60 mL/min | [facility] | | | - | | | LABORATORY | | | [place] | | | SERVICES, | | | | | | CORE | | + + + + + + | EGFR NON | 53 (L) | >60 mL/min | [facility] | | | -[facility] | | | LABORATORY | | | [facility] | | | SERVICES, | | | | | | CORE | | + + + + + + | SODIUM, | 142 | 136 - 145 | [facility] | | | PLASMA | | mmol/L | LABORATORY | | | (LAB) | | | SERVICES, | | | | | | CORE | | + + + + + + | POTASSIUM, | 4.4 | 3.4 - 5.0 | [facility] | | | PLASMA | | mmol/L | LABORATORY | | | (LAB) | | | SERVICES, | | | | | | CORE | | + + + + + + | CHLORIDE, | 112 (H) | 97 - 108 mmol/L | [facility] | | | PLASMA | | | LABORATORY | | | (LAB) | | | SERVICES, | | | | | | CORE | | + + + + + + | TOTAL CO2, | 24 | 21 - 32 mmol/L | [facility] | | | PLASMA | | | LABORATORY | | | (LAB) | | | SERVICES, | | | | | | CORE | | + + + + + + | CALCIUM, | 7.9 (L) | 8.6 - 10.2 | [facility] | | | PLASMA | | mg/dL | LABORATORY | | | (LAB) | | | SERVICES, | | | | | | CORE | | + + + + + + | ALBUMIN, | 2.9 (L) | 3.5 - 4.7 g/dL | [facility] | | | PLASMA | | | LABORATORY | | | (LAB) | | | SERVICES, | | | | | | CORE | | + + + + + + | PHOSPHORUS, | 2.7 | 2.4 - 4.7 mg/dL | [facility] | | | PLASMA | | | LABORATORY | | | (LAB) | | | SERVICES, | | | | | | CORE | | + + + + + + | POTASSIUM | No Hemo | | [facility] | | | CMNT | | | LABORATORY | | | | | | SERVICES, | | | | | | CORE | | + + + + + + | ANION GAP | 6 | mmol/L | [facility] | | | | | | LABORATORY | | | | | | SERVICES, | | | | | | CORE | | + + + + + + | ANION | 8 | 4 - 11 mmol/L | [facility] | | | GAP(ALB | | | LABORATORY | | | CORRECTED) | | | SERVICES, | | | | | | CORE | | + + + + + + + + | Specimen | + + | Blood - Blood | + + + + + | Narrative | Performed At | + + + | GFR is estimated using the MDRD equation recommended by the | [facility] | | National Kidney Disease Education Program. Estimated GFR | LABORATORY | | Interpretive Information: <60 mL/min/1.73 sq m | SERVICES, CORE | | Chronic Kidney Disease <15 mL/min/1.73 sq m | | | Kidney Failure Estimated GFR greater that 60 mL/min/1.73 sq m is of | | | limited clinical value. The MDRD equation is not valid in the | | | following situations: - Patients under 18 years of age - Severe | | | malnutrition or obesity - Vegetarian diet - Rapidly changing kidney | | | function | | + + + + + + + + | Performing | Address | City/State/Zipcode | Phone Number | | Organization | | | | + + + + + | [facility] | [address] | [place] [address] | | | SERVICES, CORE | [address] | | | + + + + + X-RAY ABD LTD FEEDING TUBE EVAL PORTABLE (08/27/2014 3:32 PM PDT) + + + + + + | Component | Value | Ref Range | Performed | Pathologist | | | | | At | Signature | + + + + + + | X-RAY ABD | EXAM: AP view of lower | | | | | LTD FEEDING | chest and upper abdomen | | | | | TUBE EVAL | COMPARISON: None | | | | | PORTABLE | FINDINGS AND IMPRESSION: | | | | | | Technically limited | | | | | | A.P. view of the | | | | | | lowerchest/upper abdomen | | | | | | for purposes of tube | | | | | | placement only | | | | | | demonstrate a | | | | | | weightedenteric feeding | | | | | | tube with its distal tip | | | | | | in the proximal | | | | | | stomach. | | | | | | Suggestadvancing and | | | | | | recheck. . Attending | | | | | | Radiologists: SKYLER | | | | | | BLAKE POPEuthor: SKYLER | | | | | | MD NIKO I have | | | | | | personally viewed this | | | | | | procedure/exam, reviewed | | | | | | this report, and | | | | | | madechanges to it where | | | | | | appropriate. | | | | | | Final/Electronically | | | | | | maria eugenia / SKYLER | Rosemarie | | | | NIKO 08/27/2014 16:05 PM | | | | | | | | | | + + + + + + + + | Specimen | + + | | + + + +---------+ + + | Performing | Address | City/State/Zipcode | Phone Number | | Organization | | | | + +---------+ + + | [facility] | | | | [facility] | | | | + +---------+ + + X-RAY PORTABLE CHEST 1 VIEW (08/27/2014 3:32 PM PDT) + + + + + + | Component | Value | Ref Range | Performed | Pathologist | | | | | At | Signature | + + + + + + | X-RAY | STUDY:TN CHEST 1 VIEW | | | | | PORTABLE | 08/27/14 14:48:00 | | | | | CHEST 1 | COMPARISON:PET scan | | | | | VIEW | 08/09/2014 INDICATION: | | | | | | Intubation, 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 There is | | | | | | bilateral perihilar | | | | | | atelectasis. There is | | | | | | no pneumothorax or | | | | | | largepleural effusion. | | | | | | The osseous structures | | | | | | appear intact. | | | | | | IMPRESSION: Endotracheal | | | | | | tube terminates 5.5 cm | | | | | | above the arpita. | | | | | | Bilateral perihilar | | | | | | atelectasis. Attending | | | | | | Radiologists: VIKTOR | | | | | | BLAKE RENEuthor: VIKTOR | | | | | | MD ANJU I have | | | | | | personally viewed this | | | | | | procedure/exam, reviewed | | | | | | this report, and | | | | | | madechanges to it where | | | | | | appropriate. | | | | | | Final/Electronically | | | | | | signed / VIKTOR RENE | | | | | | 08/27/2014 15:37 PM | | | | + + + + + + + + | Specimen | + + | | + + + +---------+ + + | Performing | Address | City/State/Zipcode | Phone Number | | Organization | | | | + +---------+ + + | [facility] | | | | | [facility] | | | | + +---------+ + + 12 LEAD ECG (08/27/2014 3:08 PM PDT) + + + + + + | Component | Value | Ref Range | Performed | Pathologist | | | | | At | Signature | + + + + + + | VENTRICULAR | 87 | bpm | [facility] | | | RATE | | | OF | | | | | | CARDIOLOGY | | + + + + + + | ATRIAL RATE | 87 | bpm | [facility] | | | | | | OF | | | | | | CARDIOLOGY | | + + + + + + | P-R | 184 | ms | [facility] | | | INTERVAL | | | OF | | | | | | CARDIOLOGY | | + + + + + + | P AXIS | 48 | deg | [facility] | | | | | | OF | | | | | | CARDIOLOGY | | + + + + + + | QRS | 86 | ms | [facility] | | | DURATION | | | OF | | | | | | CARDIOLOGY | | + + + + + + | QT | 372 | ms | [facility] | | | | | | OF | | | | | | CARDIOLOGY | | + + + + + + | QTC-BAZETT | 448 | ms | [facility] | | | | | | OF | | | | | | CARDIOLOGY | | + + + + + + | R AXIS | -45 | deg | [facility] | | | | | | OF | | | | | | CARDIOLOGY | | + + + + + + | T AXIS | 45 | deg | [facility] | | | | | | OF | | | | | | CARDIOLOGY | | + + + + + + | ECG | SINUS RHYTHM- NORMAL ECG | | [facility] | | | IMPRESSION | -Electronically signed | | OF | | | | by: THAIS GRIMES | | CARDIOLOGY | | | | 08-28-2014 08:06:17 | | | | + + + + + + + + | Specimen | + + | | + + + + + | Narrative | Performed At | + + + | | [facility] | | | CARDIOLOGY | + + + + + | Procedure Note | + + | Other, Faculty - 08/28/2014 8:25 AM PDT | + + + + + + + | Performing | Address | City/State/Zipcode | Phone Number | | Organization | | | | + + + + + | [facility] | [address] | [place], [place] | | | CARDIOLOGY | [address] | [address] | | + + + + + CAPILLARY BLOOD GLUCOSE (NO CHG), POC (08/27/2014 2:40 PM PDT) + +---------+ + + + | Component | Value | Ref Range | Performed | Pathologist | | | | | At | Signature | + +---------+ + + + | BLOOD | 194 (H) | 60 - 99 mg/dL | [facility] - | | | GLUCOSE, | | | [facility] | | | POC | | | [place], [facility] | | | | | | OF CARE | | | | | | TESTS | | + +---------+ + + + + + | Specimen | + + | | + + + + + + + | Performing | Address | City/State/Zipcode | Phone Number | | Organization | | | | + + + + + | [facility] | [address] | [place], [place] | | | [facility] | [facility] | [address] | | | TESTS | | | | + + + + + BLOOD GASES, ARTERIAL - LAB (08/27/2014 2:40 PM PDT) + + + + + + | Component | Value | Ref Range | Performed | Pathologist | | | | | At | Signature | + + + + + + | PAT TEMP | Comment: ng | Degree C | [facility] | | | ARTERIAL | | | LABORATORY | | | | | | SERVICES, | | | | | | CORE | | + + + + + + | FIO2 | Comment: ng | | [facility] | | | ARTERIAL | | | LABORATORY | | | | | | SERVICES, | | | | | | CORE | | + + + + + + | PH ARTERIAL | 7.28 (L) | 7.37 - 7.44 | [facility] | | | | | | LABORATORY | | | | | | SERVICES, | | | | | | CORE | | + + + + + + | PCO2 | 51 (H) | 32 - 43 mmHg | [facility] | | | ARTERIAL | | | LABORATORY | | | | | | SERVICES, | | | | | | CORE | | + + + + + + | PO2 | 82 | 72 - 104 mmHg | [facility] | | | ARTERIAL | | | LABORATORY | | | | | | SERVICES, | | | | | | CORE | | + + + + + + | HCO3 | 23 | 21 - 28 mmol/L | [facility] | | | ARTERIAL | | | LABORATORY | | | | | | SERVICES, | | | | | | CORE | | + + + + + + | TOTAL CO2 | 24 | 22 - 28 mmol/L | [facility] | | | ARTERIAL | | | LABORATORY | | | | | | SERVICES, | | | | | | CORE | | + + + + + + | BASE EXCESS | -3.8 | | [facility] | | | ARTERIAL | | | LABORATORY | | | | | | SERVICES, | | | | | | CORE | | + + + + + + | O2 SAT, | 95.8 | 92.0 - 98.0 | [facility] | | | ARTERIAL | | | LABORATORY | | | | | | SERVICES, | | | | | | CORE | | + + + + + + | PAO2/FIO2 | | >300 mmHg | [facility] | | | RATIO | | | LABORATORY | | | | | | SERVICES, | | | | | | CORE | | + + + + + + + + | Specimen | + + | Blood - Blood | + + + + + + + | Performing | Address | City/State/Zipcode | Phone Number | | Organization | | | | + + + + + | [facility] | [address] | [place] [address] | | | SERVICES, CORE | [address] | | | + + + + + CBC (HEMOGRAM) ONLY (08/27/2014 2:39 PM PDT) + + + + + + | Component | Value | Ref Range | Performed | Pathologist | | | | | At | Signature | + + + + + + | WHITE CELL | 9.20 | 4.40 - 11.00 | [facility] | | | COUNT | | K/cu mm | LABORATORY | | | | | | SERVICES, | | | | | | CORE | | + + + + + + | RED CELL | 3.60 (L) | 4.50 - 6.00 | [facility] | | | COUNT | | M/cu mm | LABORATORY | | | | | | SERVICES, | | | | | | CORE | | + + + + + + | HEMOGLOBIN | 11.5 (L) | 13.5 - 17.5 | [facility] | | | | | g/dL | LABORATORY | | | | | | SERVICES, | | | | | | CORE | | + + + + + + | HEMATOCRIT | 34.8 (L) | 41.0 - 53.0 % | [facility] | | | | | | LABORATORY | | | | | | SERVICES, | | | | | | CORE | | + + + + + + | MCV | 96.7 (H) | 80.0 - 96.0 fL | [facility] | | | | | | LABORATORY | | | | | | SERVICES, | | | | | | CORE | | + + + + + + | MCHC | 33.0 | 33.0 - 35.5 | [facility] | | | | | g/dL | LABORATORY | | | | | | SERVICES, | | | | | | CORE | | + + + + + + | RDW SD | 53.5 (H) | 35.1 - 46.3 fL | [facility] | | | | | | LABORATORY | | | | | | SERVICES, | | | | | | CORE | | + + + + + + | PLATELET | 166 | 150 - 400 K/cu | [facility] | | | COUNT | | mm | LABORATORY | | | | | | SERVICES, | | | | | | CORE | | + + + + + + | MPV | 10.6 | 9.7 - 12.3 fL | [facility] | | | | | | LABORATORY | | | | | | SERVICES, | | | | | | CORE | | + + + + + + | NRBC% | 0.0 | 0.0 - 0.3 % | [facility] | | | | | | LABORATORY | | | | | | SERVICES, | | | | | | CORE | | + + + + + + | NRBC# | 0.00 | 0.00 - 0.02 | [facility] | | | | | K/cu mm | LABORATORY | | | | | | SERVICES, | | | | | | CORE | | + + + + + + + + | Specimen | + + | Blood - Blood | + + + + + + + | Performing | Address | City/State/Zipcode | Phone Number | | Organization | | | | + + + + + | [facility] | [address] | [place] [address] | | | SERVICES, CORE | [address] | | | + + + + + RENAL FUNCTION SET (NA,K,CL,CO2,BUN,CREAT,GLUC,CA,PHOS,ALB ) (08/27/2014 2:39 PM PDT) + + + + + + | Component | Value | Ref Range | Performed | Pathologist | | | | | At | Signature | + + + + + + | GLUCOSE, | 180 (H) | 60 - 99 mg/dL | [facility] | | | PLASMA | | | LABORATORY | | | (LAB) | | | SERVICES, | | | | | | CORE | | + + + + + + | BUN, PLASMA | 26 (H) | 6 - 20 mg/dL | [facility] | | | (LAB) | | | LABORATORY | | | | | | SERVICES, | | | | | | CORE | | + + + + + + | CREATININE | 1.39 (H) | 0.70 - 1.30 | [facility] | | | PLASMA | | mg/dL | LABORATORY | | | (LAB) | | | SERVICES, | | | | | | CORE | | + + + + + + | EGFR | 59 (L) | >60 mL/min | [facility] | | | - | | | LABORATORY | | | [place] [place] | | | SERVICES, | | | | | | CORE | | + + + + + + | EGFR NON | 49 (L) | >60 mL/min | [facility] | | | -[facility] | | | LABORATORY | | | [facility] | | | SERVICES, | | | | | | CORE | | + + + + + + | SODIUM, | 142 | 136 - 145 | [facility] | | | PLASMA | | mmol/L | LABORATORY | | | (LAB) | | | SERVICES, | | | | | | CORE | | + + + + + + | POTASSIUM, | 5.2 (H) | 3.4 - 5.0 | [facility] | | | PLASMA | | mmol/L | LABORATORY | | | (LAB) | | | SERVICES, | | | | | | CORE | | + + + + + + | CHLORIDE, | 112 (H) | 97 - 108 mmol/L | [facility] | | | PLASMA | | | LABORATORY | | | (LAB) | | | SERVICES, | | | | | | CORE | | + + + + + + | TOTAL CO2, | 24 | 21 - 32 mmol/L | [facility] | | | PLASMA | | | LABORATORY | | | (LAB) | | | SERVICES, | | | | | | CORE | | + + + + + + | CALCIUM, | 8.2 (L) | 8.6 - 10.2 | [facility] | | | PLASMA | | mg/dL | LABORATORY | | | (LAB) | | | SERVICES, | | | | | | CORE | | + + + + + + | ALBUMIN, | 3.0 (L) | 3.5 - 4.7 g/dL | [facility] | | | PLASMA | | | LABORATORY | | | (LAB) | | | SERVICES, | | | | | | CORE | | + + + + + + | PHOSPHORUS, | 3.1 | 2.4 - 4.7 mg/dL | [facility] | | | PLASMA | | | LABORATORY | | | (LAB) | | | SERVICES, | | | | | | CORE | | + + + + + + | POTASSIUM | No Hemo | | [facility] | | | CMNT | | | LABORATORY | | | | | | SERVICES, | | | | | | CORE | | + + + + + + | ANION GAP | 6 | mmol/L | [facility] | | | | | | LABORATORY | | | | | | SERVICES, | | | | | | CORE | | + + + + + + | ANION | 8 | 4 - 11 mmol/L | [facility] | | | GAP(ALB | | | LABORATORY | | | CORRECTED) | | | SERVICES, | | | | | | CORE | | + + + + + + + + | Specimen | + + | Blood - Blood | + + + + + | Narrative | Performed At | + + + | GFR is estimated using the MDRD equation recommended by the | [facility] | | National Kidney Disease Education Program. Estimated GFR | LABORATORY | | Interpretive Information: <60 mL/min/1.73 sq m | SERVICES, CORE | | Chronic Kidney Disease <15 mL/min/1.73 sq m | | | Kidney Failure Estimated GFR greater that 60 mL/min/1.73 sq m is of | | | limited clinical value. The MDRD equation is not valid in the | | | following situations: - Patients under 18 years of age - Severe | | | malnutrition or obesity - Vegetarian diet - Rapidly changing kidney | | | function | | + + + + + + + + | Performing | Address | City/State/Zipcode | Phone Number | | Organization | | | | + + + + + | [facility] | [address] | [place] [address] | | | [place]FT[place], MAT[address] | [address] | | | + + + + + CAPILLARY BLOOD GLUCOSE (NO CHG), POC (08/27/2014 6:55 AM PDT) + +---------+ + + + | Component | Value | Ref Range | Performed | Pathologist | | | | | At | Signature | + +---------+ + + + | BLOOD | 131 (H) | 60 - 99 mg/dL | [facility] - | | | GLUCOSE, | | | [facility] | | | POC | | | [facility] | | | | | | OF CARE | | | | | | TESTS | | + +---------+ + + + + + | Specimen | + + | | + + + + + + + | Performing | Address | City/State/Zipcode | Phone Number | | Organization | | | | + + + + + | [facility] | [address] | [place], [place] | | | [facility] | [facility] | [address] | | | TESTS | | | | + + + + + ANTIBODY SCREEN (08/27/2014 6:38 AM PDT) + + + + + + | Component | Value | Ref Range | Performed | Pathologist | | | | | At | Signature | + + + + + + | Antibody | Negative | | [facility] | | | Screen | | | LABORATORY | | | | | | SERVICES, | | | | | | TRANSFUSION | | | | | | MEDICINE | | + + + + + + + + | Specimen | + + | Blood - Blood | + + + + + + + | Performing | Address | City/State/Zipcode | Phone Number | | Organization | | | | + + + + + | [facility] | [address] | [place] [address] | | | SERVICES, | [address] | | | | TRANSFUSION MEDICINE | | | | + + + + + ABO & RH TYPE (08/27/2014 6:38 AM PDT) + + + + + + | Component | Value | Ref Range | Performed | Pathologist | | | | | At | Signature | + + + + + + | ABO Group | A | | [facility] | | | | | | LABORATORY | | | | | | SERVICES, | | | | | | TRANSFUSION | | | | | | MEDICINE | | + + + + + + | Rh Type | Positive | | [facility] | | | | | | LABORATORY | | | | | | SERVICES, | | | | | | TRANSFUSION | | | | | | MEDICINE | | + + + + + + + + | Specimen | + + | Blood - Blood | + + + + + + + | Performing | Address | City/State/Zipcode | Phone Number | | Organization | | | | + + + + + | [facility] | [address] | [place] [address] | | | SERVICES, | [address] | | | | TRANSFUSION MEDICINE | | | | + + + + + SURGICAL PATHOLOGY (08/27/2014) + + + + + + | Component | Value | Ref Range | Performed | Pathologist | | | | | At | Signature | + + + + + + | SURGICAL | SOURCE OF SPECIMEN:A | | [facility] | | | PATHOLOGY | Left baseof tongue and | | DEPARTMENT | | | | tonsilSOURCE OF | | OF | | | | SPECIMEN:B Lateral | | PATHOLOGY | | | | margin FSSOURCE OF | | | | | | SPECIMEN:C Anterior | | | | | | margin FSSOURCE OF | | | | | | SPECIMEN:D Deep margin | | | | | | FSSOURCE OF SPECIMEN:E | | | | | | Lateral deep margin | | | | | | FSSOURCE OF SPECIMEN:F | | | | | | Left neck level 2ASOURCE | | | | | | OF SPECIMEN:G Left neck | | | | | | level 3SOURCE OF | | | | | | SPECIMEN:H Left neck | | | | | | level 4 Final | | | | | | Pathologic Diagnosis:A: | | | | | | Base of tongue and | | | | | | tonsil, left, partial | | | | | | pharyngectomy:- 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 | | | | | | (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), | | | | | | moderatelydifferentiated | | | | | | - Positive for | | | | | | angiolymphatic invasion | | | | | | - Perineural | | | | | | invasion not identified- | | | | | | Cauterized tumor | | | | | | extends to disrupted | | | | | | tissue edge (please see | | | | | | comment)- Remaining | | | | | | mucosal and soft tissue | | | | | | margins negative for | | | | | | malignancy - AJCC | | | | | | pathologic stage (7th | | | | | | edition): pT2 N1 | | | | | | B: Left base of | | | | | | tongue, lateral margin, | | | | | | excision: - | | | | | | Fibroadipose tissue and | | | | | | skeletal muscle, | | | | | | negative for malignancy | | | | | | C: Left base of | | | | | | tongue, anterior margin, | | | | | | excision: - | | | | | | Adipose tissue and | | | | | | skeletal muscle, | | | | | | negative for malignancy | | | | | | D: Left base of | | | | | | tongue, deep margin, | | | | | | excision: - | | | | | | Skeletal muscle and | | | | | | minor salivary gland, | | | | | | negative for malignancy | | | | | | E: Left base of | | | | | | tongue, lateral deep | | | | | | margin, excision: | | | | | | - Fibromuscular tissue, | | | | | | negative for malignancy | | | | | | F: Lymph nodes, | | | | | | left neck level 2A, | | | | | | dissection: - | | | | | | Metastatic squamous cell | | | | | | carcinoma (2.5cm) | | | | | | involving one of | | | | | | sixlymph nodes (1/6) | | | | | | - Positive for focal | | | | | | extranodal extension | | | | | | G: Lymph nodes, | | | | | | left neck level 3, | | | | | | dissection: - Five | | | | | | lymph nodes, negative | | | | | | for malignancy (0/5) | | | | | | H: Lymph node, left | | | | | | neck level 4, biopsy: | | | | | | - One lymph node, | | | | | | negative for malignancy | | | | | | (0/1) Comment: The | | | | | | partial pharyngectomy | | | | | | specimen (part A) | | | | | | demonstratescauterized | | | | | | tumor extending to the | | | | | | torn and disrupted | | | | | | tissue edge | | | | | | atanterior/base of | | | | | | tongue/deep | | | | | | corresponding to focus | | | | | | identified by | | | | | | thesurgeon. By report, | | | | | | additional biopsies were | | | | | | taken from tissue | | | | | | adjacent tothe torn | | | | | | focus and submitted as | | | | | | parts B-E. Please see | | | | | | parts B-E | | | | | | foradditional/final | | | | | | margin information. | | | | | | Case seen by:Nicho | | | | | | Tushar Rahman/Surgical | | | | | | Pathology FellowJane | | | | | | Buckner, | | | | | | M.D./PathologistT:08/28/ | | | | | | 15/rdl | | | | | | Pharynx Cancer | | | | | | SynopsisSpecimens | | | | | | InvolvedSpecimens: | | | | | | A: Left baseof tongue | | | | | | and tonsilF: Left neck | | | | | | level 2A Specimen: | | | | | | OropharynxReceived: | | | | | | FreshProcedure: | | | | | | ResectionNeck (lymph | | | | | | node) dissectionLeft | | | | | | base of tongue | | | | | | resection, selective | | | | | | left neck | | | | | | dissectionSpecimen Size: | | | | | | 4 x 2.5 x 3cmSpecimen | | | | | | Laterality: | | | | | | LeftTumor Site: | | | | | | OropharynxBase of | | | | | | tongue, including | | | | | | lingual tonsilTumor | | | | | | Laterality: LeftTumor | | | | | | Focality: Single | | | | | | focusTumor Size: | | | | | | Greatest dimension: | | | | | | 2.4cmGross | | | | | | subtypeHistologic | | | | | | TypeSquamous cell | | | | | | carcinoma, | | | | | | conventionalHistologic | | | | | | Grade: D4Moveepi: | | | | | | Positive for invasive | | | | | | carcinomaPositve | | | | | | margin(s): | | | | | | Anterior/base of | | | | | | tongue/deep (Area | | | | | | designated as jacqueline the | | | | | | surgeon)Angiolymphatic | | | | | | Invasion: | | | | | | PresentPerineural | | | | | | Invasion: | | | | | | AbsentLymph Nodes, | | | | | | Extranodal Extension: | | | | | | PresentPrimary Tumor | | | | | | (pT): Oropharynx: | | | | | | qR1Wevdtato Lymph | | | | | | Nodes (pN)Regional Lymph | | | | | | Nodes (pN): Oropharynx | | | | | | and Hypopharynx: | | | | | | eM9Kjrtow of regional | | | | | | lymph nodes involved: | | | | | | 1Number of regional | | | | | | lymph nodes examined: | | | | | | 12Greatest Dimension | | | | | | of largest positive | | | | | | lymph node: | | | | | | 2.5cmDistant Metastasis | | | | | | (pM): Not applicable | | | | | | | | | | | | Intraoperative Consult | | | | | | (Frozen Section) | | | | | | Diagnosis:Lateral margin | | | | | | (specimen B): - | | | | | | Negative for malignancy | | | | | | Anterior margin | | | | | | (specimen C): - | | | | | | Negative for malignancy | | | | | | Deep margin | | | | | | (specimen D): - | | | | | | Negative for malignancy | | | | | | Lateral deep | | | | | | margin (specimen E): | | | | | | - Negative for | | | | | | malignancy | | | | | | Intraoperative Consult | | | | | | Diagnosis confirmed by: | | | | | | Eunice Perez, | | | | | | Danika(ASCP)Danny | | | | | | Tushar Lowe/Surgical | | | | | | Pathology Resident, and | | | | | | Jono Quintanilla, | | | | | | MEdie/Pathologist | | | | | | Clinical History:The | | | | | | patient is an | | | | | | 79-year-old male with | | | | | | base of tongue cancer. | | | | | | Gross | | | | | | Description:Received are | | | | | | 8 specimens fresh in | | | | | | containers labeled with | | | | | | the patient | | | | | | name(initials LB) and: | | | | | | A: Left base of | | | | | | tongue and tonsil: | | | | | | Received is a left | | | | | | base of tonguemeasuring | | | | | | 4.0 x 2.5 x 3.0 cm with | | | | | | attached glossotonsillar | | | | | | fold and 1.7 x1.2 x | | | | | | 1-cm left palatine | | | | | | tonsil. The specimen | | | | | | is oriented by the | | | | | | surgeonwith a torn area | | | | | | along the anterior/base | | | | | | of tongue/deep stitched | | | | | | togetherafter removal | | | | | | (inked magenta). Per | | | | | | the surgeon, more tissue | | | | | | is taken inthis area as | | | | | | specimen B-E. There | | | | | | is a 2.4 x 1.5 x 1.1-cm, | | | | | | pedunculated,lobulated, | | | | | | red-trevino lesion at the | | | | | | junction of base of | | | | | | tongue and tonsil.The | | | | | | lesion is the following | | | | | | distance to mucosal | | | | | | margins: 2.1 cm | | | | | | tosuperior, 0.5 cm to | | | | | | anterior, 0.6 cm to | | | | | | medial, 1.9 cm to | | | | | | posterior. | | | | | | Theresection margins | | | | | | are inked: Superior is | | | | | | blue, inferior is | | | | | | green,deep/lateral is | | | | | | black, medial is yellow, | | | | | | anterior is orange, | | | | | | posterior ispurple. On | | | | | | sectioning, the lesion | | | | | | has no gross invasion. | | | | | | The distance tothe | | | | | | deep margin is | | | | | | approximately 0.5 cm. | | | | | | Orthotics Assistant | | | | | | sections of thespecimen | | | | | | are submitted. The | | | | | | entire lesion is | | | | | | submitted. B: | | | | | | Lateral margin: | | | | | | Received are 2 soft, | | | | | | red-trevino tissues, 0.6 x | | | | | | 0.4 x 0.2cm in | | | | | | aggregate. The entire | | | | | | specimen is submitted | | | | | | for frozen | | | | | | sectiondiagnosis and is | | | | | | resubmitted. C: | | | | | | Anterior margin: | | | | | | Received is a 0.5 x | | | | | | 0.2 x 0.1-cm, soft, | | | | | | red-tantissue. The | | | | | | entire specimen is | | | | | | submitted for frozen | | | | | | section diagnosis andis | | | | | | resubmitted. D: | | | | | | Deep margin: | | | | | | Received are 2 soft, | | | | | | red-trevino tissues, 0.7 x | | | | | | 0.4 x 0.2 cmin | | | | | | aggregate. The entire | | | | | | specimen is submitted | | | | | | for frozen | | | | | | sectiondiagnosis and is | | | | | | resubmitted. E: | | | | | | Lateral deep margin: | | | | | | Received is a 0.4 x | | | | | | 0.3 x 0.2-cm, soft, | | | | | | red-tantissue. The | | | | | | entire specimen is | | | | | | submitted for frozen | | | | | | section diagnosis andis | | | | | | resubmitted. F: | | | | | | Left neck level 2A: | | | | | | Received is a 3.3 x | | | | | | 3.5 x 1.7-cm aggregate | | | | | | oflobulated, trevino-red, | | | | | | soft tissue. Within | | | | | | the specimen is a 2.5 x | | | | | | 2 x1.8-cm, firm, | | | | | | enlarged lymph node with | | | | | | a fleshy, white, | | | | | | focally hemorrhagiccut | | | | | | surface. Sectioning | | | | | | and palpation of the | | | | | | remainder of the | | | | | | specimenreveals 4 | | | | | | possible subcentimeter | | | | | | lymph nodes. | | | | | | Orthotics Assistant of | | | | | | lymphoidtissue is | | | | | | submitted. G: | | | | | | Left neck level 3: | | | | | | Received is a 3.5 x 3 | | | | | | x 2-cm aggregate | | | | | | ofyellow-red, lobulated | | | | | | tissue. The specimen | | | | | | is palpated for lymph | | | | | | nodesrevealing 5 | | | | | | possible subcentimeter | | | | | | lymph nodes. All | | | | | | lymphoid tissue | | | | | | issubmitted. H: | | | | | | Left neck level 4: | | | | | | Received is a 2.4 x | | | | | | 1.6 x 1-cm fragment | | | | | | ofred-yellow, lobulated | | | | | | tissue. The entire | | | | | | specimen is submitted. | | | | | | Cassette Index:A: | | | | | | Left base of tongue | | | | | | and tonsil:A1, anterior | | | | | | margin en face, torn | | | | | | portion anterior and | | | | | | medial to lesionA2-3, | | | | | | full thickness section | | | | | | of lesion with | | | | | | surrounding marginsA4-5, | | | | | | full thickness section | | | | | | of lesion with | | | | | | surrounding marginsA6, | | | | | | logistics service representative posterior | | | | | | margin as well as | | | | | | palatine tonsilB: | | | | | | Lateral margin:B1, | | | | | | frozen section residueC: | | | | | | Anterior margin:C1, | | | | | | frozen section residueD: | | | | | | Deep margin:D1, | | | | | | frozen section residueE: | | | | | | Lateral deep | | | | | | margin:E1, frozen | | | | | | section residueF: Left | | | | | | neck level 2A:F1-2, | | | | | | logistics service representative of | | | | | | largest lymph nodeF3, | | | | | | four possible lymph | | | | | | nodesG: Left neck | | | | | | level 3:G1, five | | | | | | possible lymph nodesH: | | | | | | Left neck level | | | | | | 4:H1-2KRK(A-E):SC(F-H):t | | | | | | p My electronic | | | | | | signature indicates that | | | | | | I have personally | | | | | | reviewed alldiagnostic | | | | | | slides, the gross and/or | | | | | | microscopic portion of | | | | | | thisreport and | | | | | | formulated the final | | | | | | diagnosis. | | | | | | Rendering Diagnostician: | | | | | | Ila Buckner | | | | | | Siriai | | | | | | jayne Signed 08/30/2014 | | | | | | 2:43PM | | | | + + + + + + + + | Specimen | + + | | + + + + + + + | Performing | Address | City/State/Zipcode | Phone Number | | Organization | | | | + + + + + | [facility] | [address] | [place] [address] | | | PATHOLOGY | [address] | | | + + + + + CARDIOLOGY (08/27/2014 12:00 AM PDT) + + + | Narrative | Performed At | + + + | | | | | | + + + + + | Procedure Note | + + | Manuel Booth - 09/04/2014 10:49 PM PDT | + + documented in this encounter Visit Diagnoses + + | Diagnosis | + + | 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 neoplasm of base of tongue | + + documented in this encounter Administered Medications + +--------+ +---------+------+ + | Medication Order | MAR | Action | Dose | Rate | Site | | | Action | Date | | | | + +--------+ +---------+------+ + | bacitracin ointment | Given | 08/28/19 | 1 strip | | Surgical | | INTRAPROCEDURE PRN, Starting Mon | | 15 2:06 | | | Site | | 08/27/14 at 1406, Until Mon | | PM PDT | | | | | 08/27/14 at 1414 | | | | | | + +--------+ +---------+------+ + +---+---+ | | | +---+---+ + +-------+ +------+---+ + | lidocaine-EPINEPHrine | Given | 08/28/19 | 6 mL | | Surgical | | (XYLOCAINE WITH EPINEPHRINE) 1 | | 15 10:37 | | | Site | | %-1:100,000 injection | | AM PDT | | | | | INTRAPROCEDURE PRN, Starting Mon | | | | | | | 08/27/14 at 1037, Until Mon | | | | | | | 08/27/14 at 1255 | | | | | | + +-------+ +------+---+ + +---+---+ | | | +---+---+ + +-------+ +-------+---+ + | mineral oil liquid | Given | 08/28/19 | 10 mL | | Surgical | | INTRAPROCEDURE PRN, Starting Mon | | 15 10:03 | | | Site | | 08/27/14 at 1003, Until Mon | | AM PDT | | | | | 08/27/14 at 1255 | | | | | | + +-------+ +-------+---+ + +---+---+ | | | +---+---+ documented in this encounter
--- OUTSIDE RECORDS SUMMARY | ~2019-06-05 | XMS | Encounter Summary ---
Demographics + + + | Address | [address] | | | [place] [address] | + + + | Home Phone [...] [place] | | | | | [address] | | + + + + + Care Team Providers + +------+ + | Care Manager Fraud Name | Role | Phone | + [...] | Pathology | Cancer of | Art HollowayDO | Loader Operator Supervisor [address] | | | Required | | base of | [address] | [place] | | | | | tongue (HCC) | [address] | [place], [place] | | | | | [address] | [place], | [address] | | | | | (ICD-9-CM) - | [place] [address] | Phone: | | | | | Cancer of | Phone: | [phone] | | | | | base of | [phone] | Fax: | | | | | tongue (HCC) | Fax: | [phone] | | | | | Procedures | [phone] | | | | | | Speech | | | +--------+ + + + + + Encounter Details +--------+ + + + + | Date | Type | Department | Care Team | Description | +--------+ + + + + | 11/16/ | Hospital | [facility] | Ruy Chaparro | No Show | | 2015 | Encounter | MED CTR SPEECH | MD Jason [address] | | | | | THERAPY [address] | [address] [place] | | | | | [place], | [place] [address] | | | | | [place] [address] | [phone] | | | | | [phone] | | | | | | | Michelle Vera | | | | | | M, Speech | | | | | | Pathologist [address] | | | | | [address] [place] | | | | | | [place] [address] | | | | | | [phone] | | | | | | | [...] [place] | | | | | | [address] | | | | | | | | +--------+ + + + + | 03/13/ | Office | Cardiology | Sophie Delacruz, | | | 2020 | Visit | | MD [address]ivo [address] | | | | | | [place] | | | | | | [address] | | | | | | | | +--------+ + + + + documented as of this encounter Visit Diagnoses Not on filedocumented in this encounter"
--- OUTSIDE RECORDS SUMMARY | ~2019-06-05 | XMS | Encounter Summary ---
Demographics + + + | Address | [address] | | | [place] [address] | + + + | Home Phone | | + + + | Preferred Language | Unknown | + + + | Marital Status | | + + + | Worship Affiliation | Unknown | + + + | Race | Unknown | + + + | Ethnic Group | Unknown | + + + Author + + + | Author | [facility] | | | and [place] | + + + | Organization | [facility] | | [...] [place] | | | | | [address] | | + + + + + Care Team Providers + +------+ + | Care Ultrasonic Seaming Machine Operator Name | Role | Phone [...] + + + + | 01/21/ | Telephone | [facility] | Art Red DO | Other | | 2015 | | MED CTR MEDICAL | [address] | | | | | ONCOLOGY CLINIC [address] | [place], [place] | | | | | [facility] | [address] | | | | | [place] [address] | | | | | | [phone] | | | +--------+ + + + [...] [place] | | | | | | [address] | | | | | | | | +--------+ + + + + | 03/13/ | Office | Cardiology | Sophie Delacruz, | | | 2019 | Visit | | MD [address]ivo DIAZ | | | | | | [place] | | | | | | [address] | | | | | | | | +--------+ + + + + documented as of this encounter Visit Diagnoses Not on filedocumented in this encounter"
--- OUTSIDE RECORDS SUMMARY | ~2019-06-05 | XMS | Encounter Summary ---
Demographics + + + | Address | [address] | | | [place] [address] | + + + | Home Phone | | + + + | Preferred Language | Unknown | + + + | Marital Status | | + + + | Jewish Affiliation | NON | + + + | Race | White | + + + | Ethnic Group | Not or | + + + Author + + + | Author | [facility] | + + + | Organization | [facility] | + + + | Address | Unknown | + + + | Phone | Unavailable | + + + Support + + +---------+ + | Name | Relationship | Address | Phone | + + +---------+ + | Kofia Alex | ECON | Unknown | | + + +---------+ + Care Team Providers + +------+ + | Care Helper Coordinator Name | Role | Phone | + +------+ + | Cong Freeman MD | PCP | | + +------+ + Encounter Details +--------+ + + + + | Date | Type | Department | Care Team | Description | +--------+ + + + + | 03/22/ | Documentati | Otolaryngology | Danny Abdullahi | | | 2015 | on | Head and Neck | MD Jessy [address] | | | | | Surgery Services at | [facility] | | | | | [address] | [place], [place] | | | | | [address] | [address] | | | | | Mailcode: PV01 | [phone] | | | | | [facility] | | | | | | [place], [place] | | | | | | [address] | | | | | | [phone] | | | +--------+ + + + [...]
--- OUTSIDE RECORDS SUMMARY | ~2019-06-05 | XMS | Encounter Summary ---
Demographics + + + | Address | [address] | | | [place] [address] | + + + | Home Phone | | + + + | Preferred Language | Unknown | + + + | Marital Status | | + + + | Hindu Affiliation | Unknown | + + + [...] [place] | | | | | [address] | | + + + + + Care Team Providers + +------+ + | Care Sales Floor Team Leader Name | Role | Phone | + +------+ + | Ruy Chaparro MD | PCP | | + +------+ + Encounter Details +--------+ + + + + | Date | Type | Department | Care Team | Description | +--------+ + + + + | 11/16/ | Documentati | [facility] | Chuy, | | | 2014 | on | MED CTR SPEECH | Michelle Weeks, Speech | | | | | THERAPY [address] | Pathologist [address] | | | | | [place], | [address] [place] | | | | | [place] [address] | [place] [address] | | | | | [phone] | [phone] | | | | | | | [...] as of this encounter Progress Notes Michelle Mcnally Speech Pathologist - 11/16/2014 11[facility] [address] [place] [address] Cancellation/No Show Date: 11/16/2014 Patient Information Patient Name: Navi Johnson Date of : 1935 Age: 79 y.o. Reason for missed visit: Pt reported that he received a reminder call from OP therapies how ever he couldn't understand the message, "because the person spoke too fast." Phone call placed: yes Plan: CLINICIAN ONCOLOGY placed a call to the Pt who reported that now he is having more swallowing diffic ulties and feels like his throat is swollen and is also experiencing odynophagia. CLINICIAN ONCOLOGY talked with Pt about scheduling an appointment early next week. CLINICIAN ONCOLOGY provided suggestions to ease e ating, such as pureed foods, pain management and frequent oral care and rinses. CLINICIAN ONCOLOGY also spo ke with sand system operator about possible need for referral to prevent weightloss as Pt reported he h as been eating "very little." Electronically signed by: Michelle Mcnally SPEECH PATHO, 11/16/2014 11:11 Patient Name: Navi Johnson/: 1935/ documented in this encounter Plan of Treatment +--------+ + + + + | Date | Type | Specialty | Care Team | Description | +--------+ + + + + | 12/10/ | Appointment | Radiation Oncology | Art Red DO | | | 2019 | | | [address] | | | | | | [place] | | | | | | [address] | | | | | | | | +--------+ + + + + | 03/13/ | Office | Cardiology | Sophie Delacruz, | | | 2019 | Visit | | MD Chivo DIAZ | | | | | | [place] | | | | | | [address] | | | | | | | | +--------+ + + + + documented as of this encounter Visit Diagnoses + + | Diagnosis | + + | Dysphagia - Primary Dysphagia, unspecified | + + documented in this encounter
--- OUTSIDE RECORDS SUMMARY | ~2019-06-05 | XMS | Encounter Summary ---
Demographics + + + | Address | [address] | | | [place] [address] | + + + | Home Phone | | + + + | Preferred Language | Unknown | + + + | Marital Status | | + + + | Islam Affiliation | NON | + + + | Race | White | + + + | Ethnic Group | Not or | + + + Author + + + | Author | [facility] | + + + | Organization | [facility] | + + + | Address | Unknown | + + + | Phone | Unavailable | + + + Support + + +---------+ + | Name | Relationship | Address | Phone | + + +---------+ + | Kofia Alex | ECON | Unknown | | + + +---------+ + Care Team Providers + +------+ + | Care Sonoscope Operator Name | Role | Phone | + +------+ + | Ruy Chaparro MD | PCP | | + +------+ + Reason for Visit Diagnostic Testing (Routine) +--------+--------+ + + + + | Status | Reason | Specialty | Diagnoses / | Referred By | Referred To | | | | | Procedures | Contact | Contact | +--------+--------+ + + + + | Closed | | Non [facility] | Diagnoses | [place], | [facility], | | | | Department | Squamous | Ryan Weeks MD | Administratio | | | | | cell cancer | [address] | n [place] | | | | | of tongue | [facility] | A MEDICAL | | | | | (HCC) | [address] | CENTER [address] | | | | | Procedures | [place], | [address] | | | | | PET HEAD AND | [place] [address] | [facility] | | | | | NECK | Phone: | [address] | | | | | | [phone] | [place], [place] | | | | | | Fax: | [address] Phone: | | | | | | [phone] | [phone] | | | | | | | Fax: | | | | | | | [phone] | +--------+--------+ + + + + Encounter Details +--------+ + + + + | Date | Type | Department | Care Team | Description | +--------+ + + + + | 08/09/ | Hospital | Radiation Oncology | | | | 2014 | Encounter | at [facility] [address] | | | | | | [place] | | | | | | [id number] | | | | | | [facility] | | | | | | [place] [address] | | | | | | [phone] | | | +--------+ + + + [...] as of this encounter Plan of Treatment + +---------+--------+ + + | Name | Type | Priori | Associated Diagnoses | Date/Time | | | | ty | | | + +---------+--------+ + + | PET HEAD AND NECK | Imaging | Routin | Squamous cell | 08/09/2014 12:42 PM | | | | e | cancer of tongue | PDT | | | | | (HCC) | | + +---------+--------+ + + documented as of this encounter Procedures + +--------+ + + + | Procedure Name | Priori | Date/Time | Associated Diagnosis | Comments | | | ty | | | | + +--------+ + + + | CAPILLARY BLOOD | Routin | 08/09/2014 | | Results for this | | GLUCOSE (NO CHG), | e | 11:05 AM | | procedure are in the | | POC | | PDT | | results section. | + +--------+ + + + | ORDERS OTHER | | 08/09/2014 | | Results for this | | | | 12:00 AM | | procedure are in the | | | | PDT | | results section. | + +--------+ + + + documented in this encounter Results CAPILLARY BLOOD GLUCOSE (NO CHG), POC (08/09/2014 11:05 AM PDT) + +---------+ + + + | Component | Value | Ref Range | Performed | Pathologist | | | | | At | Signature | + +---------+ + + + | BLOOD | 111 (H) | 60 - 99 [...] [facility] | [address] | [place], [place] | | | [facility] | [address] | [address] | | | TESTS | | | | + + + + + ORDERS OTHER (08/09/2014 12:00 AM PDT) + + + | Narrative | Performed At | + + + | | | | | | + + + + + | Procedure Note | + + | Manuel Booth - 09/21/2014 1:44 PM PDT | + + documented in this encounter Visit Diagnoses + + | Diagnosis | + + | Squamous cell cancer of tongue (HCC) Malignant neoplasm of tongue, unspecified site | + + documented in this encounter"
--- OUTSIDE RECORDS SUMMARY | ~2019-06-05 | XMS | Encounter Summary ---
Demographics + + + | Address | [address] | | | [place] [address] | + + + | Home Phone | | + + + | Preferred Language | Unknown | + + + | Marital Status | | + + + | Holiness Affiliation | Unknown | + + + | Race | Unknown | + + + | Ethnic Group | Unknown | + + + Author + + + | Author | [facility] | | | and [place] | + + + | Organization | [facility] | | | and [...] [place] | | | | | [address] | | + + + + + Care Team Providers + +------+ + | Care Ground Crew Supervisor Name | Role | Phone | [...] neoplasm of | [address] | [address] | | | | | oropharynx, | [address] | [place], | | | | | unspecified | [place], | [place] [address] | | | | | site | [place] [address] | Phone: | | | | | Procedures | Phone: | [phone] | | | | | [place] IV | [phone] | Fax: | | | | | INFUSION, | Fax: | [phone] | | | | | HYDRATION, | [phone] | | | | | | 31-60 MIN | | | | | | | LA IV | | | | | | | INFUSION, | | | | | | | HYDRATION, | | | | | | | 31-60 MIN | | | +--------+--------+ + + + + Encounter Details +--------+ + + + + | Date | Type | Department | Care Team | Description | +--------+ + + + + | 11/26/ | Hospital | [facility] | Art Red DO | Dysphagia; Carcinoma | | 2015 | Encounter | MED CTR CHEMO | [address] | of oropharynx (HCC) | | | | INFUSION [address] | [place], [place] | | | | | [place], | [address] | | | | | [place] [address] | | | | | | [phone] | | | +--------+ + + + [...] 2019 | | | [address] | | | | | | [place] | | | | | | [address] | | | | | | | | +--------+ + + + + | 03/13/ | Office | Cardiology | Sophie Delacruz, | | 2019 | Visit | [address] | | | | | | [place] | | | | | | [address] | | | | | | | [...]
--- OUTSIDE RECORDS SUMMARY | ~2019-06-05 | XMS | Encounter Summary ---
Demographics + + + | Address | [address] | | | [place] [address] | + + + | Home Phone | | + + + | Preferred Language | Unknown | + + + | Marital Status | | + + + | Holiness Affiliation | Unknown | + + + | Race | Unknown | + + + | Ethnic Group | Unknown | + + + Author + + + | Author | [facility] | | | and [place] | + + + | Organization | [facility] | | | [...] [place] | | | | | [address] | | + + + + + Care Team Providers + +------+ + | Care Numerical Control Nesting Operator Name | Role | Phone | [...] | +--------+ + + + + | 03/11/ | Telephone | [facility] | Art Red DO | Other | | 2016 | | MED CTR MEDICAL | [address] | | | | | ONCOLOGY CLINIC [address] | [place], [place] | | | | | [address] [place] | [address] | | | | | [place] [address] | | | | | | [phone] | | | +--------+ + + + [...] [place] | | | | | | [address] | | | | | | | | +--------+ + + + + | 03/13/ | Office | Cardiology | Sophie Delacruz, | | | 2019 | Visit | | MD [address]vio [address]IAZ | | | | | | [place] | | | | | | [address] | | | | | | | | +--------+ + + + + documented as of this encounter Visit Diagnoses Not on filedocumented in this encounter"
--- OUTSIDE RECORDS SUMMARY | ~2019-06-05 | XMS | Encounter Summary ---
Demographics + + + | Address | [address] | | | [place] [address] | + + + | Home Phone | | + + + | Preferred Language | Unknown | + + + | Marital Status | | + + + | Adventist Affiliation | Unknown | + + + | Race | Unknown | + + + | Ethnic Group | Unknown | + + + Author + + + | Author | [facility] | | | and [place] | + + + | Organization | [facility] | | | [...] [place] | | | | | [address] | | + + + + + Care Team Providers + +------+ + | Care Children Teacher Name | Role | Phone | [...] Services | n | Malignant | Art Hololway DO | Oncology | | | Required | | neoplasm of | [address] | Therapy [address] | | | | | base of | [address] | [address] [place] | | | | | tongue (HCC) | [place], | [place], | | | | | | [place] [address] | [place] [address] | | | | | | Phone: | Phone: | | | | | | [phone] | [phone] | | | | | | Fax: | Fax: | | | | | | [phone] | [phone] | +--------+ + + + + + Encounter Details +--------+---------+ + + + | Date | Type | Department | Care Team | Description | +--------+---------+ + + + | 10/15/ | Office | [facility] | Spenser Valle | Carcinoma of | | 2015 | Visit | MED CNT ONCOLOGY | MD Jason [address] | oropharynx (HCC) | | | | THERAPY [address] | [address] [place] | (Primary Dx) | | | | [place], | [place] [address] | | | | | [place] [address] | [phone] | | | | | [phone] | | | | | | | [...] of this encounter Progress Notes Ann Marie Villegas, OT - 10/15/2014 9:54 AM PDT [facility] OT OP [address] [place] [address] Occupational Therapy Daily Treatment Note Date: 10/15/2014 Patient Information Patient Name: Navi Johnson Date of : 1935 Age: 79 y.o. History Encounter Diagnoses Code Name Primary? 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: Referring Provider: Spenser Valle MD Rehab Precautions [facility] COMPOTYPE OPERATOR OP EVAL from 10/03/2014 in [facility] Rehab Precautions Precautions Hearing impairment, Vision impairment Today's Treatment Start Time: 09 Stop time: 929 Duration: 30 minutes Timed Treatment Codes: 30 minutes # of OT Visits: 2 Subjective: Reports will not be receiving chemo d/t cardiac contraindications Pain Assessment Pain Rating During Assessment: 2 Location: L lateral neck, inferior to ear - sternocleidomastoid; reported pain w/ palpation only Objective Trigger point release and MFR techs to L lateral neck w/ emphasis to sternocleidomastoid an d upper trap. Contd instruction in neck ROM and facial and mouth exs for ROM and tissue mobi lity during upcoming radiation issued handout. Assessment Patient and spouse report follow through w/ daily massage. Good results demo'd by decrease d edema observed L neck at scar site, decreased scar fibrosis, and increased neck ROM. Melvi ent demo'd increased R lateral neck roation by 13 degrees (32 deg) and neck rotation to R by 17 degrees (51 deg). Patient reports is continuing to take Tylenol daily, but pain levels remain below 2/10. Good immediate responses to manual techs to L neck. Discussed with melvi ent/spouse that anticipate muscular pain as result of post-surgical trauma and mm "guarding" . Encouraged daily ROM to cont to elongate and release mm tissues. Plan Cont w/ manual techs for muscle release/pain mgmt to L neck; review HEP prn Electronically signed by: Ann Marie Villegas OT, 10/15/2014 10:04 Patient Name: Navi Matias Alex/: 1935/ documented in this encounter Plan of Treatment +--------+ + + + + | Date | Type | Specialty | Care Team | Description | +--------+ + + + + | 12/10/ | Appointment | Radiation Oncology | Art Red, DO | | | 2019 | | | [address] | | | | | | [place] | | | | | | [id number] | | | | | | | | +--------+ + + + + | 03/13/ | Office | Cardiology | Julianne Delacruzej, | | | 2019 | Visit | | MD [place] | | | | | | [place] | | | | | | [address] | | | | | | | | +--------+ + + + + documented as of this encounter Visit Diagnoses + + | Diagnosis | + + | Carcinoma of oropharynx (HCC) - Primary Malignant neoplasm of oropharynx, unspecified | | site | + + documented in this encounter
--- OUTSIDE RECORDS SUMMARY | ~2019-06-05 | XMS | Encounter Summary ---
Demographics + + + | Address | [address] | | | [place] [address] | + + + | Home Phone | | + + + | Preferred Language | Unknown | + + + | Marital Status | | + + + | Confucianism Affiliation | Unknown | + + + [...] [place] | | | | | [address] | | + + + + + Care Team Providers + +------+ + | Care Pipeline Maintenance Supervisor Name | Role | Phone | [...] neoplasm of | [address] | [address] [place] | | | | | oropharynx, | [address] | [place], | | | | | unspecified | [place], | [place] [address] | | | | | site | [place] [address] | Phone: | | | | | Procedures | Phone: | [phone] | | | | | [place] IV | [phone] | Fax: | | | | | INFUSION, | Fax: | [phone] | | | | | HYDRATION, | [phone] | | | | | | 31-60 MIN | | | | | | | [place] IV | | | | | | | INFUSION, | | | | | | | HYDRATION, | | | | | | | 31-60 MIN | | | +--------+--------+ + + + + Encounter Details +--------+ + + + + | Date | Type | Department | Care Team | Description | +--------+ + + + + | 11/28/ | Hospital | [facility] | Art Red DO | Dysphagia; Carcinoma | | 2015 | Encounter | MED CTR CHEMO | [address] | of oropharynx (HCC) | | | | INFUSION [address] | [place], [place] | | | | | [place], | [address] | | | | | [place] [address] | | | | | | [phone] | | | +--------+ + + + [...] [place] | | | | | | [id number] | | | | | | | [...]
--- OUTSIDE RECORDS SUMMARY | ~2019-06-05 | XMS | Encounter Summary ---
Demographics + + + | Address | [address] | | | [place] [address] | + + + | Home Phone | | + + + | Preferred Language | Unknown | + + + | Marital Status | | + + + | Gnosticist Affiliation | Unknown | + + + [...] [place] | | | | | [address] | | + + + + + Care Team Providers + +------+ + | Care Material Assistant Name | Role | Phone | [...] | +--------+ + + + + | 02/05/ | Telephone | [facility] | Art Red DO | Other | | 2014 | | [facility] RAD[facility] | [address] | | | | | ONCOLOGY [address] | [place], [place] | | | | | [place], | [address] | | | | | [place] [address] | | | | | | [phone] | | | +--------+ + + + [...] [place] | | | | | | [address] | | | | | | | | +--------+ + + + + | 03/13/ | Office | Cardiology | Sophie Delacruz, | | | 2019 | Visit | | MD Chivo DIAZ | | | | | | [place] | | | | | | [address] | | | | | | | | +--------+ + + + + documented as of this encounter Visit Diagnoses Not on filedocumented in this encounter"
--- OUTSIDE RECORDS SUMMARY | ~2019-06-05 | XMS | Encounter Summary ---
Demographics + + + | Address | [address] | | | [place] [address] | + + + | Home Phone | | + + + | Preferred Language | Unknown | + + + | Marital Status | | + + + | Zoroastrianism Affiliation | Unknown | + + + | Race | Unknown | + + + | Ethnic Group | Unknown | + + + Author + + + | Author | [facility] | | | and [place] | + + + | Organization | [facility] | | | and [...] [place] | | | | | [address] | | + + + + + Care Team Providers + +------+ + | Care Travel Accommodation Inspector Name | Role | Phone | + +------+ + | Angel Lynch DO | PCP | | + +------+ + Encounter Details +--------+ + + + + | Date | Type | Department | Care Team | Description | +--------+ + + + + | 03/15/ | Orders Only | [facility] | Ruy Chaparro | | | 2011 | | [address] | MD Jason [address] | | | | | [place], [place] | [facility] | | | | | [address] | [place] [address] | | | | | [phone] | [phone] | | | | | | | [...] [place] | | | | | | [address] | | | | | | | | +--------+ + + + + | 03/13/ | Office | Cardiology | Sophie Delacruz, | | | 2019 | Visit | | MD Chivo DIAZ | | | | | | [place] | | | | | | [address] | | | | | | | | +--------+ + + + + documented as of this encounter Procedures + +--------+ + + + | Procedure Name | Priori | Date/Time | Associated Diagnosis | Comments | | | ty | | | | + +--------+ + + + | CULTURE, URINE | Routin | 04/11/2012 | | Results for this | | | e | 8:00 AM | | procedure are in the | | | | PST | | results section. | + +--------+ + + + | CULTURE, URINE | Routin | 03/15/2012 | | Results for this | | | e | 7:49 AM | | procedure are in the | | | | PDT | | results section. | + +--------+ + + + documented in this encounter Results Culture, Urine (04/11/2012 8:00 AM PST) + + | Specimen | + + | | + + + + + | Narrative | Performed At | + + + | Specimen Description URINE, COLLECTION NOT | EXTERNAL LAB | | GIVEN Testing | | | performed at [facility];[address] [place] [address];[place] [address] CULTURE | | | >100,000 CFU/ML ESCHERICHIA | | | COLI 10,000 TO | | | 50,000 CFU/ML MIXED GRAM POSITIVE SAM NO SUSCEPTIBILITY TO FOLLOW | | | Testing performed | | | at [facility];[address] [place] [address];[place] [address] REPORT STATUS | | | 04/12/2012 FINAL Organism | | | ESCHERICHIA COLI Suscepibility for - | | | ESCHERICHIA COLI Ampicillin RESISTANT | | | Resistant Ampicillin + Sulbactam SUSCEPTIBLESensitive | | | Cefazolin SUSCEPTIBLESensitive | | | Ceftazidime SUSCEPTIBLESensitive | | | Ceftriaxone SUSCEPTIBLESensitive | | | Ciprofloxacin RESISTANT Resistant Gentamicin | | | RESISTANT Resistant Trimethoprim + | | | SulfamethoxazoleRESISTANT Resistant Nitrofurantoin | | | SUSCEPTIBLESensitive Levofloxacin | | | INTERMEDIATEIntermediate | | + + + + +---------+ + + | Performing | Address | City/State/Zipcode | Phone Number | | Organization | | | | + +---------+ + + | EXTERNAL LAB | | | | + +---------+ + + Culture, Urine (03/15/2012 7:49 AM PDT) + + | Specimen | + + | | + + + + + | Narrative | Performed At | + + + | Specimen Description URINE, COLLECTION NOT | EXTERNAL LAB | | GIVEN Testing | | | performed at [facility];[address] [place] [address];[place] [address] CULTURE | | | >100,000 CFU/ML ESCHERICHIA | | | COLI Testing | | | performed at [facility];[address] [place] [address];[place] [id number] REPORT | | | STATUS 03/16/2012 FINAL Organism | | | ESCHERICHIA COLI Suscepibility | | | for - ESCHERICHIA COLI Ampicillin | | | RESISTANT Resistant Ampicillin + Sulbactam | | | SUSCEPTIBLESensitive Cefazolin | | | SUSCEPTIBLESensitive Ceftazidime | | | SUSCEPTIBLESensitive Ceftriaxone | | | SUSCEPTIBLESensitive Ciprofloxacin RESISTANT | | | Resistant Gentamicin RESISTANT Resistant | | | Trimethoprim + SulfamethoxazoleRESISTANT Resistant Nitrofurantoin | | | SUSCEPTIBLESensitive Levofloxacin | | | INTERMEDIATEIntermediate | | + + + + +---------+ + + | Performing | Address | City/State/Zipcode | Phone Number | | Organization | | | | + +---------+ + + | EXTERNAL LAB | | | | + +---------+ + + documented in this encounter Visit Diagnoses Not on filedocumented in this encounter"
--- OUTSIDE RECORDS SUMMARY | ~2019-06-05 | XMS | Encounter Summary ---
Demographics + + + | Address | [address] | | | [place] [address] | + + + | Home Phone | | + + + | Preferred Language | Unknown | + + + | Marital Status | | + + + | Sikh Affiliation | Unknown | + + + | Race | Unknown | + + + | Ethnic Group | Unknown | + + + Author + + + | Author | [facility] | | | and [place] | + + + | Organization | [facility] | | | [...] [place] | | | | | [address] | | + + + + + Care Team Providers + +------+ + | Care Freight Flagman Name | Role | Phone | + [...] | | ONCOLOGY CLINIC [address] | [place], [place] | | | | | [address] [facility] | [address] | | | | | [place] [address] | | | | | | [phone] | | | +--------+ + + + [...] [place] | | | | | | [address] | | | | | | | [...]
--- OUTSIDE RECORDS SUMMARY | ~2019-06-05 | XMS | Encounter Summary ---
Demographics + + + | Address | [address] | | | [place] [address] | + + + | Home Phone | | + + + | Preferred Language | Unknown | + + + | Marital Status | | + + + | Gnosticism Affiliation | Unknown | + + + | Race | Unknown | + + + | Ethnic Group | Unknown | + + + Author + + + | Author | [facility] | | | and [place] | + + + | Organization | [facility] | | [...] [place] | | | | | [address] | | + + + + + Care Team Providers + +------+ + | Care Mill Roll Rewinder Name | Role | Phone | + [...] + + | Closed | Specialty | Nutrition | Diagnoses | [facility] | | | Services | | Carcinoma | Infusion | Nutrition | | | Required | | of | [address] | Services [address] | | | | | oropharynx | [place] | [address] | | | | | (HCC) | [place], [place] | [place], | | | | | | [address] | [place] [address] | | | | | | Phone: | Phone: | | | | | | [phone] | [phone] | | | | | | Fax: | Fax: | | | | | | [phone] | [phone] | +--------+ + + + + + Reason for Visit + + + | Reason | Comments | + + + | IDT Note | | + + + Encounter Details +--------+ + + + + | Date | Type | Department | Care Team | Description | +--------+ + + + + | 10/08/ | Telephone | [facility] | Cait Mazariegos, | IDT Note | | 2014 | | MED CTR CHEMO | RN | | | | | INFUSION [address] | | | | | | [address], | | | | | | [place] [address] | | | | | | [phone] | | | +--------+ + + + [...] [place] | | | | | | [id number] | | | | | | | | +--------+ + + + + | 03/13/ | Office | Cardiology | Sophie Delacruz, | | | 2019 | Visit | | MD Chivo DIAZ | | | | | | [place] | | | | | | [address] | | | | | | | | +--------+ + + + + + + +--------+ + + | Name | Type | Priori | Associated Diagnoses | Order Schedule | | | | ty | | | + + +--------+ + + | Ambulatory referral | Outpatient | Routin | Carcinoma of | Ordered: 10/08/2014 | | to Nutrition | Referral | e | oropharynx (HCC) | | | Services | | | | | + + +--------+ + + documented as of this encounter Visit Diagnoses + + | Diagnosis | + + | 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
--- OUTSIDE RECORDS SUMMARY | ~2019-06-05 | XMS | Encounter Summary ---
Demographics + + + | Address | [address] | | | [place] [address] | + + + | Home Phone | | + + + | Preferred Language | Unknown | + + + | Marital Status | | + + + | Mosque Affiliation | Unknown | + + + | Race | Unknown | + + + | Ethnic Group | Unknown | + + + Author + + + | Author | [facility] | | | and [place] | + + + | Organization | [facility] | | [...] [place] | | | | | [address] | | + + + + + Care Team Providers + +------+ + | Care Polishing Wheel Repairer Name | Role | Phone | + [...] [place], [place] | | | | | [place], | [address] | | | | | [place] [address] | | | | | | [phone] | | | +--------+ + + + [...] [place] | | | | | | [address] | | | | | | | | +--------+ + + + + | 03/13/ | Office | Cardiology | Sophie Delacruz, | | | 2019 | Visit | | MD Chivo DIAZ | | | | | | [place] | | | | | | [address] | | | | | | | | +--------+ + + + + documented as of this encounter Visit Diagnoses Not on filedocumented in this encounter"
--- OUTSIDE RECORDS SUMMARY | ~2019-06-05 | XMS | Encounter Summary ---
Demographics + + + | Address | [address] | | | [place] [address] | + + + | Home Phone | | + + + | Preferred Language | Unknown | + + + | Marital Status | | + + + | Anglican Affiliation | Unknown | + + + | Race | Unknown | + + + | Ethnic Group | Unknown | + + + Author + + + | Author | [facility] | | | and [place] | + + + | Organization | [facility] | | | [...] [place] | | | | | [address] | | + + + + + Care Team Providers + +------+ + | Care Thread Spinner Name | Role | Phone | + [...] Cancer of | Art Holloway DO | Barber Instructor [address] | | | Required | | 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) | [address] | [place], [place] | | | | | [address] | [place], | [address] | | | | | (ICD-9-CM) - | [place] [address] | Phone: | | | | | Cancer of | Phone: | [phone] | | | | | base of | [phone] | Fax: | | | | | tongue (HCC) | Fax: | [phone] | | | | | Procedures | [phone] | | | | | | Speech | | | +--------+ + + + + + Encounter Details +--------+ + + + + | Date | Type | Department | Care Team | Description | +--------+ + + + + | 10/18/ | Hospital | [facility] | Spenser Valle | Dysphagia (Primary | | 2015 | Encounter | MED CTR SPEECH | MD Jason [address] | Dx) | | | | THERAPY [address] | [address] [place] | | | | | [place], | [place] [address] | | | | | [place] [address] | [phone] | | | | | [phone] | | | | | | | Michelle Vera | | | | | | M, Speech | | | | | | Pathologist [address] | | | | [address] [place] | | | | | | [place] [address] | | | | | | [phone] | | | | | | | [...] Progress Notes Michelle Mcnally, Speech Pathologist - 10/19/2014 3:01 PM PDT [facility] [address] [place] [address] Speech Therapy Daily Treatment Note Date: 10/18/2014 Patient Information Patient Name: Navi Johnson Date of : 1935 Age: 79 y.o. Encounter Diagnoses Code Name Primary? 787.20 Dysphagia Yes Date of Onset: 08/27/14 Referring Provider: Spenser Valle MD Rehab Precautions [facility] COKE CRUSHER OPERATOR OP EVAL from 10/03/2014 in [facility] Rehab Precautions Precautions Hearing impairment, Vision impairment Rehab Learning Style Office Visit from 10/08/2014 in [facility] TH[facility] OT OP [facility] COKE CRUSHER OPERATOR OP E ANTONY from 10/03/2014 in [facility] Learning Style Patient's Optimum Learning Style reading, performance of task performance of task Pain Assessment Pain Scale Used: NUMERIC Pain Rating During Assessment: 0 Today's Treatment Patient Name: Navi Johnson/: 1935/ Start Time: 829 Stop time: 914 Duration: 45 minutes Timed Treatment Codes: 0 minutes # of Speech Visits to Date: 2 Visit Summary: Pt seen for session with in out patient rehab. Pt reported this is day three of radiation therapy and he has no changes to his swallowing. He still feels food or l iquids with consecutive sips getting stuck in the L side of throat during swallow. He report ed that the chin tuck head tilt combo doesn't help "that much." He has not needed to modify his diet at this time. Bulk of session focused on education of importance of oral motor and swallow exercises to maintain ROM of oral musculature and strength of swallowing. COKE CRUSHER OPERATOR provid ed an exercise regimen and took him through each of the exercises (effortful swallow, ariel , tongue lateralization. COKE CRUSHER OPERATOR also educated on the importance of drinking water. Next appt sc heduled for mid way through radiation treatment, as this is often when dysphagia begins occu r. Pt and are compliant with treatment regimen. Next Visit: Swallow eval of varied textures, diet texture modification and oral motor exerc ise education COKE CRUSHER OPERATOR Treatment COKE CRUSHER OPERATOR Treatment: patient/caregiver education, oral motor exercise, home [...] #1: daily Assessment Rehabilitation potential: Patient demonstrates excellent potential to achieve established g oals to address the documented impairments by participating in skilled speech and language t herapy services. Outcome Specific Scored Goals Patient's Primary Functional Goal 1: Pt will use strategies taught and diettexture modifica tion in order for him to sustain his needs and eat safely Primary Functional Goal 1 Status Comment: ongoing Patient Caregiver's Ability to Manage Condition: 3 Goal Motor Speech Motor Speech STG Status: Continued STG Motor Speech: Pt will demonstrate adequate ROM of jaw and lingual structures after perf orming oral motor exercises daily as prescribed during radiation treatment to maintain abili ty to chew and speak. Electronically signed by: Michelle Mcnally SPEECH PATHO, 10/19/2014 15:02 Patient Name: Navi Matias Alex/: 1935/ documented [...] [place] | | | | | | [address] | | | | | | | | +--------+ + + + + | 03/13/ | Office | Cardiology | Sophie Delacruz, | | | 2019 | Visit | | MD Chivo DIAZ | | | | | | [place] | | | | | | [phone] | | | | | | | | +--------+ + + + + documented as of this encounter Visit Diagnoses + + | Diagnosis | + + | Dysphagia - Primary Dysphagia, unspecified | + + documented in this encounter
--- OUTSIDE RECORDS SUMMARY | ~2019-06-05 | XMS | Encounter Summary ---
Demographics + + + | Address | [address] | | | [place] [address] | + + + | Home Phone | | + + + | Preferred Language | Unknown | + + + | Marital Status | | + + + | Church Affiliation | Unknown | + + + | Race | Unknown | + + + | Ethnic Group | Unknown | + + + Author + + + | Author | [facility] | | | and [place] | + + + | Organization | [facility] | | [...] [place] | | | | | [address] | | + + + + + Care Team Providers + +------+ + | Care Appliance Repair Technician Name | Role | Phone | [...] neoplasm of | [address] | | | | | oropharynx, | [address] | [place], | | | | | unspecified | [place], | [place] [address] | | | | | site | [place] [address] | Phone: | | | | | Procedures | Phone: | [phone] | | | | | [place] IV | [phone] | Fax: | | | | | INFUSION, | Fax: | [phone] | | | | | HYDRATION, | [phone] | | | | | | 31-60 MIN | | | | | | | [place] IV | | | | | | | INFUSION, | | | | | | | HYDRATION, | | | | | | | 31-60 MIN | | | +--------+--------+ + + + + Encounter Details +--------+ + + + + | Date | Type | Department | Care Team | Description | +--------+ + + + + | 11/27/ | Hospital | [facility] | Art Red DO | Dysphagia; Carcinoma | | 2015 | Encounter | MED CTR CHEMO | [address] | of oropharynx (HCC) | | | | INFUSION [address] | [place], [place] | | | | | [address] [place], | [address] | | | | | [place] [address] | | | | | | [phone] | | | +--------+ + + + [...] + + + | Blood Pressure | 132/60 | 11/27/2014 11:03 AM | | | | | PDT | | + + + + + | Pulse | 84 | 11/27/2014 11:03 AM | | | | | PDT | | + + + + + | Temperature | 36.3 C (97.3 F) | 11/27/2014 11:03 AM | | | | | PDT | | + + + + + | Respiratory Rate | 16 | 11/27/2014 11:03 AM | | | | | PDT | | + + + + + | Oxygen Saturation | 94% | 11/27/2014 11:03 AM | | | | | PDT [...] encounter Progress Notes Alice Childress RN - 11/27/2014 12:39 PM PDTPatient discharged in satisfactory conditio n. Discharged ambulatory. With family. To home. Verified that patient has antinausea medications at home. Future appointments verified Alice Dominique RN - 11/27/2014 11:04 AM PDTEnergy level: low Fever or chills: no Appetite: fair, drinking fluids Nausea and/or vomiting: no Bowels: okay Numbness and tingling: no Bleeding or bruising: no Karnofsky: 80% Nurses notes: RN check for IV fluids today. Alert & oriented. Throat discomfort 06/09, PRN pain rx helpful documented in this encounter Plan of Treatment +--------+ + + + + | Date | Type | Specialty | Care Team | Description | +--------+ + + + + | 12/10/ | Appointment | Radiation Oncology | Art Red DO | | | 2019 | | | [address] | | | | | | [place] | | | | | | [id number] | | | | | | | | +--------+ + + + + | 03/13/ | Office | Cardiology | Sophie Delacruz, | | | 2019 | Visit | [facility] | | | | | | [place] | | | | | | [address] | | | | | | | [...] heparin 100 units/mL flush | Given | 11/28/19 | 500 | | | | injection 500 Units 500 Units ( | | 15 12:36 | Units | | | | mL), Intracatheter, PRN, Line | | PM PDT | | | | | Care, Starting Tu11/27/14 at | | | | | | | 1045, , | | | | | | + +--------+ +-------+------+------+ +---+---+ | | | +---+---+ + +---------+ +---+-------+---+ | sodium chloride 0.9% (NS) | New Bag | 11/28/19 | | 650 | | | infusion at 650 mL/hr, | | 15 10:56 | | mL/hr | | | Intravenous, ONCE, 6/30/15 at | | AM PDT | | | | | 1115, For 1 dose, Give 1 liter | [...]
--- OUTSIDE RECORDS SUMMARY | ~2019-06-05 | XMS | Encounter Summary ---
Demographics + + + | Address | [address] | | | [place] [address] | + + + | Home Phone | | + + + | Preferred Language | Unknown | + + + | Marital Status | | + + + | Christian Affiliation | NON | + + + | Race | White | + + + | Ethnic Group | Not or | + + + Author + + + | Author | [facility] | + + + | Organization | [facility] | + + + | Address | Unknown | + + + | Phone | Unavailable | + + + Support + + +---------+ + | Name | Relationship | Address | Phone | + + +---------+ + | Kofia Alex | ECON | Unknown | | + + +---------+ + Care Team Providers + +------+ + | Care Salesperson Hosiery Name | Role | Phone | + +------+ + | Cong Freeman MD | PCP | | + +------+ + Encounter Details +--------+ + + + + | Date | Type | Department | Care Team | Description | +--------+ + + + + | 08/21/ | Document-Sc | UNKNOWN DEPARTMENT | Unknown . | | | 2014 | anned | [address] | | | | | | [address] | | | | | | [place], [place] | | | | | | [address] | | | +--------+ + + + [...]
--- OUTSIDE RECORDS SUMMARY | ~2019-06-05 | XMS | Encounter Summary ---
Demographics + + + | Address | [address] | | | [place] [address] | + + + | Home Phone | | + + + | Preferred Language | Unknown | + + + | Marital Status | | + + + | Gnosticism Affiliation | Unknown | + + + | Race | Unknown | + + + | Ethnic Group | Unknown | + + + Author + + + | Author | [facility] | | | and [place] | + + + | Organization | [facility] | | | and [...] [place] | | | | | [address] | | + + + + + Care Team Providers + +------+ + | Care Heel Packer Name | Role | Phone | + +------+ + | uRy Chaparro MD | PCP | | + [...] | | [facility] [address] | [place], [place] | | | | | [address] | [address] | | | | | [place] [address] | | | | | | [phone] | | | +--------+ + + + [...] [place] | | | | | | [address] | | | | | | | | +--------+ + + + + | 03/13/ | Office | Cardiology | Sophie Delacruz, | | | 2019 | Visit | | MD Chivo DIA[facility] | | | | | | [place] | | | | | | [address] | | | | | | | | +--------+ + + + + documented as of this encounter Visit Diagnoses Not on filedocumented in this encounter"
--- OUTSIDE RECORDS SUMMARY | ~2019-06-05 | XMS | Encounter Summary ---
Demographics + + + | Address | [address] | | | [place] [address] | + + + | Home Phone | | + + + | Preferred Language | Unknown | + + + | Marital Status | | + + + | Faith Affiliation | Unknown | + + + | Race | Unknown | + + + | Ethnic Group | Unknown | + + + Author + + + | Author | [facility] | | | and [place] | + + + | Organization | [facility] | | | and [...] [place] | | | | | [address] | | + + + + + Care Team Providers + +------+ + | Care Cytogenetic Technician Name | Role | Phone | [...] neoplasm of | [address] [place] | | | | | oropharynx, | [address] | [place], | | | | | unspecified | [place], | [place] [address] | | | | | site | [place] [address] | Phone: | | | | | Procedures | Phone: | [phone] | | | | | [place] IV | [phone] | Fax: | | | | | INFUSION, | Fax: | [phone] | | | | | HYDRATION, | [phone] | | | | | | 31-60 MIN | | | | | | | [place] IV | | | | | | | INFUSION, | | | | | | | HYDRATION, | | | | | | | 31-60 MIN | | | +--------+--------+ + + + + Encounter Details +--------+ + + + + | Date | Type | Department | Care Team | Description | +--------+ + + + + | 11/29/ | Hospital | [facility] | Art Red DO | Dysphagia; Carcinoma | | 2015 | Encounter | MED CTR CHEMO | [address] | of oropharynx (HCC) | | | | INFUSION [address] | [place], [place] | | | | | [place], | [address] | | | | | [place] [address] | | | | | | [phone] | | | +--------+ + + + [...] [place] | | | | | | [address] | | | | | | | | +--------+ + + + + | 03/13/ | Office | Cardiology | Sophie Delacruz, | | | 2019 | Visit | | MD [facility]ivo [facility] | | | | | | [place] | | | | | | [id number] | | | | | | | [...]
--- OUTSIDE RECORDS SUMMARY | ~2019-06-05 | XMS | Encounter Summary ---
Demographics + + + | Address | [address] | | | [place] [address] | + + + | Home Phone | | + + + | Preferred Language | Unknown | + + + | Marital Status | | + + + | Jew Affiliation | Unknown | + + + | Race | Unknown | + + + | Ethnic Group | Unknown | + + + Author + + + | Author | [facility] | | | and [place] | + + + | Organization | [facility] | | [...] [place] | | | | | [address] | | + + + + + Care Team Providers + +------+ + | Care Mexican Food Maker Hand Name | Role | Phone | [...] | ONCOLOGY [address] [place] [facility], [place] | (Primary Dx) | | | | [place], | [address] | | | | | [place] [address] | | | | | | [phone] | | | +--------+ + + + [...] [place] | | | | | | [address] | | | | | | | | +--------+ + + + + | 03/13/ | Office | Cardiology | Sophie Delacruz, | | | 2019 | Visit | | MD [facility]ivo [facility] | | | | | | [place] | | | | | | [phone] | | | | | | | | +--------+ + + + + documented as of this encounter Visit Diagnoses + + | Diagnosis | + + | 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
--- OUTSIDE RECORDS SUMMARY | ~2019-06-05 | XMS | Clinical Summary ---
Demographics + + + | Address | [address] | | | [place] [address] | + + + | Home Phone | | + + + | Preferred Language | Unknown | + + + | Marital Status | | + + + | Rastafarian Affiliation | Unknown | + + + | Race | Unknown | + + + | Ethnic Group | Unknown | + + + Author + + + | Author | [employer] (Historical as of | | | 01-14-19) | + + + | Organization | [facility] [employer] (Historical as of | | | 01-14-19) [...] [place] | | | | | [address] | | + + + + + Care Team Providers + +------+ + | Care Event Security Officer Name | Role | Phone | + [...] +------+-------+ + | MEDICARE | MEDICA | [id number] | | | [address] | | | [place] | | | | [place] [address] | | | IP-OP | | | | | + +--------+ +------+-------+ + | [employer] [address] | [employer]UAL | [id number] | | | | | | [place] | | | | | | | [address] [address] | | | | | + +--------+ [...] | | al/Fam | | 1935 | [phone] [place] | | | [place] | | | [address] | [address] | + +--------+ +--------+ + +"
--- OUTSIDE RECORDS SUMMARY | ~2019-06-05 | XMS | Encounter Summary ---
Demographics + + + | Address | [address] | | | [place] [address] | + + + | Home Phone | | + + + | Preferred Language | Unknown | + + + | Marital Status | | + + + | Cheondoism Affiliation | Unknown | + + + | Race | Unknown | + + + | Ethnic Group | Unknown | + + + Author + + + | Author | [facility] | | | and [place] | + + + | Organization | [facility] | | | and [...] [place] | | | | | [address] | | + + + + + Care Team Providers + +------+ + | Care Limo Driver Name | Role | Phone | + +------+ + | Ruy Chaparro MD | PCP | | + +------+ + Encounter Details +--------+ + + + + | Date | Type | Department | Care Team | Description | +--------+ + + + + | 11/20/ | Hospital | [facility] | Art Red DO | Dysphagia; Carcinoma | | 2015 | Encounter | MED CTR CHEMO | [address] | of oropharynx (HCC) | | | | INFUSION [address] | [place], [place] | | | | | [place], | [address] | | | | | [place] [address] | | | | | | [phone] | | | +--------+ + + + [...] documented as of this encounter Progress Notes Elba Lim RN - 11/20/2014 12:46 PM PDTPatient discharged in satisfactory condition. Discharged ambulatory. With family. To home. Future appointments verified documented in this encounter Plan of Treatment [...] [place] | | | | | | [phone] | | | | | | | | +--------+ + + + + | 03/13/ | Office | Cardiology | Sophie Delacruz, | | | 2019 | Visit | [facility]marie DIA[facility] | | | | | | [place] | | | | | | [address] | | | | | | | [...] heparin 100 units/mL flush | Given | 11/21/19 | 500 | | | | injection 500 Units 500 Units (5 | | 15 12:43 | Units | | | | mL), Intracatheter, PRN, Line | | PM PDT | | | | | Care, Starting Wed11/20/14 at | | | | | | | 1058, , | | | | | | + +--------+ +-------+------+------+ +---+---+ | | | +---+---+ + +---------+ +---+-------+---+ | sodium chloride 0.9% (NS) | New Bag | 11/21/19 | | 650 | | | infusion at 650 mL/hr, | | 15 10:50 | | mL/hr | | | Intravenous, ONCE, Tue 23/15 at | | AM PDT | | [...]
--- OUTSIDE RECORDS SUMMARY | ~2019-06-05 | XMS | Encounter Summary ---
Demographics + + + | Address | [address] | | | [place] [address] | + + + | Home Phone | | + + + | Preferred Language | Unknown | + + + | Marital Status | | + + + | Episcopalian Affiliation | Unknown | + + + [...] | Allie Johnson | ECON | [address] | | | | | [place] | | | | | [address] | | + + + + + Care Team Providers + +------+ + | Care Auto Glass Installer Name | Role | Phone | + +------+ + PCP | Unavailable | + +------+ + Reason for Visit [...] Red | | | | Oncology | Malignant | Will Weeks MD | C, DO [address] | | | | | neoplasm of | | [address] | | | | | base of | | [place], | | | | | tongue (HCC) | | [place] [address] | | | | | Procedures | | Phone: | | | | | [place] OFFICE | | [phone] | | | | | OUTPATIENT | | Fax: | | | | | VISIT 25 | | [phone] | | | | | MINUTES | | | +--------+--------+ + + + + Encounter Details +--------+ + + + + | Date | Type | Department | Care Team | Description | +--------+ + + + + | 02/08/ | Hospital | [facility] | Art Red, DO | | | 2017 | Encounter | [facility] | [address] | | | | | ONCOLOGY [address] | [place] | | | | | [place], | [address] | | | | | [place] [address] | | | | | | [phone] | | | +--------+ + + + [...] | + + + +---------+--------+ + | levothyroxine | Take 75 mcg by mouth | | 0 | | | | (SYNTHROID) 75 mcg | every morning | | | | | | tablet | (before breakfast). | | | | | | | Unsure of dose | | | | | + + + +---------+--------+ + | losartan (COZAAR) | Take 50 mg by mouth | | 0 | | | | 50 mg tablet | Daily. | | | | | + + + +---------+--------+ + | simvastatin | Take 40 mg by mouth | | 0 | | | | (ZOCOR) 40 mg tablet | nightly. 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 Danny Abdullahi M.D. Spenser Randall M.D. Ruy Chaparro M.D. [facility] Chief Complaint/History of Present Illness: Base of tongue cancer I had the pleasure seeing Navi Johnson today in clinic. 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 He underwen t transoral robotic surgery with left partial glossectomy and pharyngectomy with selective neck dissection levels 2 through 4 on August 27, [address] Danny Abdullahi at [facility]. Fin al pathology confirmed a 2.4 cm moderately differentiated nonkeratinizing squamous cell car cinoma that was positive for angiolymphatic invasion. One of 6 lymph nodes was found posit vanessa at level IIA with focal extranodal extension found. Cauterized surgical margins were i nitially positive with tumor extending to the torn and disrupted tissue edge at the anteri or/base of the tongue. Marginal biopsies were negative for residual disease. He underwent external beam radiation therapy receiving a total dose of 6300 cGy delivered in 30 fractions using a differential dosing VMAT technique that completed on November 29, 2014. He is eating a full and regular diet at this time with only difficulty with very dry foods . He states that his taste is near normal with the exception of dry foods which is unchang ed. He has returned to the ENT service at the [facility] in [place] most recently in October 2016 with where a flexible nasal laryngoscopy procedure was performed. I do not h ave any record of this follow-up visit in care everywhere within [facility] and these records bart l be requested. No residual disease was seen on this exam and no mucosal abnormalities wer e seen per the patient. He states that he will return on a six-month basis to the [facility] alternating with my clinic every 3 months. Currently, he has no specific concern s or complaints after his last evaluation at the [facility] Review of Systems: ROS ConstitutionalAbnormal - Complains of a moderate appetite. Denies fever, night sweats, rigors / chills and change in weight.ROS EyesAbnormal - Complains of visual difficulties m acular degeneration. Denies blurred vision and double vision.ROS ENMTAbnormal - Complains o f sputum production clear thick sputum. Denies ear pain, epistaxis, esophagitis and sinusit is.ROS Neck Abnormal - Complains of decreased range of motion tightness. Denies neck ainsley s, muscle weakness, neck pain and swelling of the neck.ROS Integumentary Normal - Denies bl istering, bruising, pruritus and rash.ROS Cardiovascular Normal - Denies arrhythmias, chest pain, dyspnea, edema and palpitations.ROS RespiratoryAbnormal - Complains of cough. Denies hemoptysis and wheezing.ROS GastrointestinalNormal - Denies abdominal pain, constipation, diarrhea, heartburn / dyspepsia, melena / GI bleeding, nausea and vomiting.ROS Genitourina ry (M)Abnormal - Complains of nocturia. Denies dysuria, frequency, hematuria and urgency.RO S MusculoskeletalAbnormal - Complains of arthritis back and joint pain. Denies muscle weakn ess.ROS NeurologicAbnormal - Complains of dizziness and motor weakness numbness in hands wi th cold weather. Denies headaches, seizure and stroke.ROS PsychiatricAbnormal - Complains o f depression diagnosis dementia. Denies mood swings and euphoria.ROS EndocrineAbnorma l - Complains of thyroid disease.ROS Hematologic/Lymphatic Normal - Denies easy bruising an d tender or enlarged lymph nodes. Medications: Patient medications reviewed and updated within the hospital EMR. See EMR for complete lis t. Allergies: Patient allergies reviewed and updated within the hospital EMR. See EMR for complete list. Physical Exam: Performed on 02/08/2017, 14:12Weight 83.3 kg Temperature 36.2 C (LOW) Pulse 56 / min (LOW) Respiration 16 / min BP176/73 mm(hg) (HIGH) O2 Sat 98 % Pain 0 PE ConstitutionalNormal - No evidence of impaired alertness, inadequate appearance, premat ure or advanced chronologic age, uncooperativeness, altered mood and affect and disorientat ion.PE HeadNormal - No evidence of alopecia, abnormal cephalic and scars.PE EyesNormal - No evidence of conjunctivitis and scleral abnormalities.PE ENMTNormal - No evidence of ear ab normalities, oral abnormalities, nasal obstruction, oropharynx obstruction, sinusitis, thro at abnormalities and tongue abnormalities. Floor of mouth was palpated bimanual examinatio n with no evidence of residual disease at the tongue base or level I lymphadenopathy. 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 PE NeckNormal - No evidence of ten ad or enlarged lymph nodes, neck abnormalities and restricted range of motion. The neck hung s a somewhat woody texture with evidence of localized lymphedema anteriorly and inferior to the thyroid cartilage.PE IntegumentaryAbnormal - Presents with dry skin. No evidence of b ruising, erythema, nails changes, altered pigmentation, rash and urticaria.PE Cardiovascula rNormal - No evidence of arterial pulse(s) abnormalities, abnormal heart rate and heart arr hythmia.PE RespiratoryNormal - No evidence of abnormal breath sounds.PE MusculoskeletalNorm al - No evidence of bone abnormalities, joint abnormalities and compromised muscle tone.PE NeurologicNormal - No evidence of impaired cranial nerve(s), uncoordinated gait and motor impairment.PE PsychiatricNormal - No evidence of altered affect, lack of comprehension and disorientation.PE Hematologic/LymphaticNormal - No evidence of tender or enlarged lymph nod es, tender or enlarged neck lymph nodes and petechiae / purpura / ecchymosis. Procedure (flexible laryngoscopy-CPT 15361): Indications: Inadequate visualization with indirect approach The risks and benefits of this procedure were described to the patient and verbal consent was obtained prior to proceeding. Local anesthetic was achieved after both nasal cavities w ere sprayed with lidocaine then Afrin. The flexible laryngoscope was inserted to the left nasal cavity following the floor past t he turbinates until the nasopharynx was visualized. The torus tubarius and Rosenmuller anju a were clear bilaterally. The scope was then flexed downward and passed further until the o ropharynx was visualized. Navi was asked to stick out his tongue so that the base of t ongue, epiglottis , vallecula and posterior wall were able to be visualized and found to be without disease. Navi was then asked to puff his cheeks for visualization of the pi riform sinuses that were found clear. Further advancement of the scope demonstrated the AE folds, arytenoids, false vocal cords and posterior glottis that were found without lesion o r mucosal abnormality. Visualization of the glottic larynx revealed full abduction/adducti on of the true vocal cords. Photos were taken and recorded within the chart. The scope was withdrawn uneventfully. Overall, Navi tolerated the procedure well. . 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 The primary lesion was 2.4 cm with a single 2.5 cm left level II lymph node that was po sitive for extracapsular extension focally. The primary tumor was torn with an initial pos itive margin that upon intraoperative biopsy was found negative. He received a total dose of 6300 cGy to the postoperative base of tongue site with differential dosing to the neck lymph nodes which he tolerated well completing on December 02, 2014. Today we reviewed late toxi cities of external beam radiation therapy and reviewed range of motion exercises and lymphe rabia exercises. Flexible nasopharyngoscopy demonstrated normal tissue today. I will peter rudy to alternate appointments between ENT at the [facility] in [place] in our clin ic on a six-month basis moving forward in accordance with the current NCCN guidelines vers ion .2016 recommending a range for years 3-5 of 4-8 months between visits. He was encou raged to call our clinic with any further questions or concerns. Thank you for allowing me to participate in the care of Navi Johnson. If you nikia karma have any questions regarding this evaluation, please do not hesitate to contact me. Art Red D.O., [facility] Radiation Oncologist Department of Radiation Oncology [facility] This note was transcribed using [employer] speech recognition software. As a result, there ma y be unintended for medical and/or spelling errors. Every attempt is made to correct dicta tion. If there are any questions or errors please contact our office. Page 1 of 3 CSN: [id number] signed by Art Red DO at 02/09/2017 9:44 AM Naomi bautista in this encounter Plan of Treatment +--------+ + + + + | Date | Type | Specialty | Care Team | Description | +--------+ + + + + | 12/10/ | Appointment | Radiation Oncology | Art Rde DO | | | 2019 | | | [address] | | | | | | [place] | | | | | | [id number] | | | | | | | | +--------+ + + + + | 03/13/ | Office | Cardiology | Sophie Delacruz, | | | 2019 | Visit | | MD Chivo DIAZ | | | | | | [place] | | | | | | [phone] | | | | | | | | +--------+ + + + + documented as of this encounter Visit Diagnoses Not on filedocumented in this encounter"
--- OUTSIDE RECORDS SUMMARY | ~2019-06-05 | XMS | Encounter Summary ---
Demographics + + + | Address | [address] | | | [place] [address] | + + + | Home Phone | | + + + | Preferred Language | Unknown | + + + | Marital Status | | + + + | Hinduism Affiliation | Unknown | + + + | Race | Unknown | + + + | Ethnic Group | Unknown | + + + Author + + + | Author | [facility] | | | and [place] | + + + | Organization | [facility] | | | [...] [place] | | | | | [address] | | + + + + + Care Team Providers + +------+ + | Care Body Presser Name | Role | Phone | + [...] + + | Closed | Specialty | Physical | Diagnoses | Lord, | [facility] | | | Services | Therapy / | Malignant | Art Holloway DO | News Videographer [address] | | | Required | Rehabilitatio | neoplasm of | [address] | [place] | | | | n | base of | [address] | [place], [place] | | | | | tongue (HCC) | [place], | [address] | | | | | | [place] [address] | Phone: | | | | | | Phone: | [phone] | | | | | | [phone] | Fax: | | | | | | Fax: | [phone] | | | | | | [phone] | | +--------+ + + + + + Evaluate & Treat [...] base of | [address] | [address] | | | | | tongue (HCC) | [place], | [place], | | | | | | [place] [address] | [place] [address] | | | | | | Phone: | Phone: | | | | | | [phone] | [phone] | | | | | | Fax: | Fax: | | | | | | [phone] | [phone] | +--------+ + + + + + Encounter Details +--------+ + + + + | Date | Type | Department | Care Team | Description | +--------+ + + + + | 09/26/ | Orders Only | [facility] | Art Red DO | Malignant neoplasm | | 2015 | | MED CTR RAD[facility] | [address] | of base of tongue | | | | ONCOLOGY [address] | [place], [place] | ([facility]) (Primary Dx) | | | | [place], | [address] | | | | | [place] [address] | | | | | | [phone] | | | +--------+ + + + [...] [place] | | | | | | [address] | | | | | | | | +--------+ + + + + | 03/13/ | Office | Cardiology | Sophie Delacruz, | | | 2019 | Visit | | MD [address] | | | | | | [place] | | | | | | [address] | | | | | | | | +--------+ + + + + + + +--------+ + + | Name | Type | Priori | Associated Diagnoses | Order Schedule | | | | ty | | | + + +--------+ + + | Ambulatory referral | Outpatient | Routin | Malignant neoplasm | Ordered: 09/26/2014 | | to Physical Therapy | Referral | e | of base of tongue | | | | | | (HCC) | | + + +--------+ + + | AMB Referral to [facility] | Outpatient | Routin | Malignant neoplasm | Ordered: 09/26/2014 | | Physical Therapy | Referral | e | of base of tongue | | | | | | (HCC) | | + + +--------+ + + documented as of this encounter Visit Diagnoses + + | Diagnosis | + + | Malignant neoplasm of base of tongue (HCC) - Primary Malignant neoplasm of base of | | tongue | + + documented in this encounter"
--- OUTSIDE RECORDS SUMMARY | ~2019-06-05 | XMS | Encounter Summary ---
Demographics + + + | Address | [address] | | | [place] [address] | + + + | Home Phone | | + + + | Preferred Language | Unknown | + + + | Marital Status | | + + + | Confucianism Affiliation | Unknown | + + + | Race | Unknown | + + + | Ethnic Group | Unknown | + + + Author + + + | Author | [facility] | | | and [place] | + + + | Organization | [facility] | | | [...] [place] | | | | | [id number] | | + + + + + Care Team Providers + +------+ + | Care Staple Cutter Name | Role | Phone | + +------+ + | Ruy Chaparro MD | PCP | | + +------+ + Reason for Referral Diagnostic/Screening (Routine) +--------+--------+ + + + + | Status | Reason | Specialty | Diagnoses / | Referred By | Referred To | | | | | Procedures | Contact | Contact | +--------+--------+ + + + + | Closed | | Radiology | Diagnoses | [place], | [address] | | | | | Carcinoma | Art Holloway DO | [address] | | | | | of | [address] | [place], | | | | | oropharynx | [address] | [place] [address] | | | | | (HCC) | [place], | Phone: | | | | | Procedures | [place] [address] | [phone] | | | | | CT Soft | Phone: | Fax: | | | | | Tissue Neck | [phone] | [phone] | | | | | w Contrast | Fax: | | | | | | | [phone] | | +--------+--------+ + + + + Reason for Visit [...] | Malignant | Will Weeks MD | [place], [address] | | | | | neoplasm of | | [address] | | | | | base of | | [place], | | | | | tongue (HCC) | | [place] [address] | | | | | Procedures | | Phone: | | | | | [place] OFFICE | | [phone] | | | | | OUTPATIENT | | Fax: | | | | | VISIT 25 | | [phone] | | | | | MINUTES | | | +--------+--------+ + + + + Encounter Details +--------+ + + + + | Date | Type | Department | Care Team | Description | +--------+ + + + + | 02/16/ | Hospital | [facility] | Art Red DO | Carcinoma of | | 2016 | Encounter | [facility] | [address] | oropharynx (HCC) | | | | ONCOLOGY [address] | [place] | (Primary Dx) | | | | [place], | [address] | | | | | [place] [address] | | | | | | [phone] | | | +--------+ + + + [...] as of this encounter Progress Notes Art Red DO - 02/17/2016 12:00 AM PDTPATIENT: Navi Jonhson : 1935 DOS: 02/17/2016 Radiation Oncology Follow-up Clinic Note ICD/Diagnosis: 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 Danny Abdullahi M.D. Spenser Randall M.D. Ruy Chaparro M.D. [facility] Chief Complaint/History of Present Illness: Base of tongue cancer I had the pleasure seeing Navi Johnson today in clinic. 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 He underwent transoral robotic surgery with left partial glossectomy and pharyngectomy with selective neck dissec tion levels 2 through [address] on August 27, [address] Danny Abdullahi at [facility]. Final patholog y confirmed a 2.4 cm moderately differentiated nonkeratinizing squamous cell carcinoma that was positive for angiolymphatic invasion. One of 6 lymph nodes was found positive at leve l IIA with focal extranodal extension found. Cauterized surgical margins were initially pos itive with tumor extending to the torn and disrupted tissue edge at the anterior/base of e tongue. Marginal biopsies were negative for residual disease. He underwent external lillian m radiation therapy receiving a total dose of 6300 cGy delivered in 30 fractions using a d ifferential dosing VMAT technique that completed on November 29, 2014. He is eating a full and regular diet at this time with only difficulty with very dry foods. He states that his tas te is near normal with the exception of dry foods which is unchanged. He has returned to [facility] ENT service at the [facility] in [place] most recently on October 03, 2015 with where a flexible nasal laryngoscopy procedure was performed. No residual disease was seen on [facility] exam and no mucosal abnormalities were seen. He will return on a six-month basis to [facility] alternating with my clinic every 3 months. Currently, he has no specifi c concerns or complaints after his last evaluation at the [facility] Review of Systems: ROS ConstitutionalNormal - Denies lack of appetite, fatigue, fever, night sweats, rigors / chills and change in weight.ROS EyesNormal - Denies blurred vision, double vision and visu al difficulties.ROS ENMTAbnormal - Complains of dysphagia Difficulty swallowing mucus, epis taxis One episode 1 month ago., mouth dryness, sputum production and altered taste. Denies ear pain, esophagitis and sinusitis.ROS NeckNormal - Denies neck masses, muscle weakness, neck pain, decreased range of motion and swelling of the neck.ROS IntegumentaryNormal - Den ies blistering, bruising, pruritus and rash.ROS CardiovascularNormal - Denies arrhythmias, chest pain, dyspnea, edema and palpitations.ROS RespiratoryNormal - Denies cough, dyspnea a nd wheezing.ROS GastrointestinalAbnormal - Complains of diarrhea. Denies abdominal pain, c onstipation, heartburn / dyspepsia, nausea and vomiting.ROS Genitourinary (M) Abnormal - Co mplains of nocturia. Denies dysuria, hematuria and urgency.ROS MusculoskeletalNormal - Aaron es arthritis, joint pain, muscle weakness and decreased range of motion.ROS NeurologicNorma l - Denies dizziness, headaches, seizure and stroke.ROS PsychiatricNormal - Denies mood swi ngs, depression and euphoria.ROS EndocrineNormal - Denies diabetes, hot flashes and thyroid disease.ROS Hematologic/LymphaticNormal - Denies easy bruising and tender or enlarged lym ph nodes. Medications: ASA 81mg TABLET q.d. Allopurinol 300mg TABLET q.d. Carvedilol 12.5 mg TABLET q.d. Isosorbide mononitrate 30 mg TABLET, CONTROLLED RELEASE q.d. Losartan TABLET q.d. Multivitamin Plavix 75mg TABLET STAT Simvastatin 10mg TABLET q.d. Tamsulosin 0.4 mg Vitamin B 12 hydrochlorthiazide 25 mg TABLET q.d. Allergies: Oxycodone Physical Exam: Performed on 02/17/2016, 14:12Weight 83.3 kg Temperature 36.1 C (LOW) Pulse 50 / min (LOW) Respiration 16 / min BP125/62 mm(hg) O2 Sat 97 % Pain 0 PE ConstitutionalNormal - No [...] at the tongue base or level I lymphadenopathy.PE Nec kNormal - No evidence of tender or enlarged lymph nodes, neck abnormalities and restricted range of motion. The neck has a somewhat woody texture with evidence of localized lymphedem a anteriorly and inferior to the thyroid cartilage.PE IntegumentaryAbnormal - Presents with dry skin. No evidence of bruising, erythema, nails changes, altered pigmentation, rash an d urticaria.PE CardiovascularNormal - No evidence of arterial pulse(s) abnormalities, abnor mal heart rate and heart arrhythmia.PE RespiratoryNormal - No evidence of abnormal breath s ounds.PE Musculoskeletal Normal - No evidence of bone abnormalities, joint abnormalities an d compromised muscle tone.PE NeurologicNormal - No evidence of impaired cranial nerve(s), uncoordinated gait and motor impairment.PE PsychiatricNormal - No evidence of altered affec t, lack of comprehension and disorientation.PE Hematologic/LymphaticNormal - No evidence of tender or enlarged lymph nodes, tender or enlarged neck lymph nodes and petechiae / purpur a / ecchymosis. 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 The primary lesion was 2.4 cm with a single 2.5 cm left level II lymph node that was positive for extracapsular extension focally. The primary tu mor was torn with an initial positive margin that upon intraoperative biopsy was found neg ative. He received a total dose of 6300 cGy to the postoperative base of tongue site with differential dosing to the neck lymph nodes which he tolerated well. Today we reviewed lat e toxicities of external beam radiation therapy and reviewed range of motion exercises and lymphedema exercises. Flexible nasopharyngoscopy demonstrated normal tissue today. I will continue to alternate appointments between ENT at the [facility] in [place] in our clinic on a three-month basis moving forward. He was encouraged to call our clinic wi th any further questions or concerns. Thank you for allowing me to participate in the care of Navi Johnson. If you nikia karma have any questions regarding this evaluation, please do not hesitate to contact me. Art Red D.O., ALIER Radiation Oncologist Department of Radiation Oncology [facility] This note was transcribed using [employer] speech recognition software. As a result, there ma y be unintended for medical and/or spelling errors. Every attempt is made to correct dicta tion. If there are any questions or errors please contact our office. Page 1 of 3 CSN: [id number] signed by Art Red DO at 02/20/2016 12:55 PM Naomi bautista in this encounter Plan of [...] MARTINEZ | | | | | | [id number] | | | | | | | | +--------+ + + + + | 03/13/ | Office | Cardiology | Sophie Delacruz, | | | 2019 | Visit | | MD Chivo DIAZ | | | | | | CRISTOFER [facility]AO | | | | | | [phone] | | | | | | | | +--------+ + + + + + +---------+--------+ + + | Name | Type | Priori | Associated Diagnoses | Order Schedule | | | | ty | | | + +---------+--------+ + + | CT Soft Tissue Neck | Imaging | Routin | Carcinoma of | Expected: | | w Contrast | | e | oropharynx (HCC) | 02/17/2016, Expires: | | | | | | 02/16/2017 | + +---------+--------+ + + | BUN | Lab | Routin | Carcinoma of | 1 Occurrences | | | | e | oropharynx (HCC) | starting 02/17/2016 | | | | | | until 02/16/2017 | + +---------+--------+ + + | Creatinine | Lab | Routin | Carcinoma of | 1 Occurrences | | | | e | oropharynx (HCC) | starting 02/17/2016 | | | | | | until 02/16/2017 | + +---------+--------+ + + documented as of this encounter Visit Diagnoses + + | Diagnosis | + + | 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
--- OUTSIDE RECORDS SUMMARY | ~2019-06-05 | XMS | Encounter Summary ---
Demographics + + + | Address | [address] | | | [place] [address] | + + + | Home Phone | | + + + | Preferred Language | Unknown | + + + | Marital Status | | + + + | Confucianism Affiliation | Unknown | + + + | Race | Unknown | + + + | Ethnic Group | Unknown | + + + Author + + + | Author | [facility] | | | and [place] | + + + | Organization | [facility] | | | and [place] | + + + | Address | Unknown | + + + | Phone | Unavailable | + + + Support + + + + + | Name | Relationship | Address | Phone | + + + + + | Allie Johnson | ECON | [address] | | | | | [place] | | | | | [address] | | + + + + + Care Team Providers + +------+ + | Care Magazine Publisher Name | Role | Phone | + +------+ + | Angel Lynch DO | PCP | | + +------+ + Reason for Visit + + + | Reason | Comments | + + + | Follow-up | | + + + Auth/Cert +--------+--------+ + + + + | Status [...] + + | 11/23/ | Hospital | [facility] | Art Red DO | Carcinoma of | | 2019 | Encounter | MED CTR RADIATION | [address] | oropharynx (HCC) | | | | ONCOLOGY CLINIC [address] | [place] | (Primary Dx) | | | | [address] | [address] | | | | | [place] [address] | | | | | | [phone] | | | +--------+ + + + [...] + + + | Blood Pressure | 176/80 | 11/23/2018 12:41 PM | | | | | PDT | | + + + + + | Pulse | 54 | 11/23/2018 12:41 PM | | | | | PDT | | + + + + + | Temperature | 36.4 C (97.5 F) | 11/23/2018 12:41 PM | | | | | PDT | | + + + + + | Respiratory Rate | 18 | 11/23/2018 12:41 PM | | | | | PDT | | + + + + + | Oxygen Saturation | 98% | 11/23/2018 12:41 PM | | | | | PDT [...] | + + + +---------+--------+ + | Multiple | Take 1 tablet by | | 0 | | | | Vitamins-Minerals | mouth Daily. | | | | | | (PX MENS | | | | | | | MULTIVITAMINS PO) | | | | | | + + + +---------+--------+ + | simvastatin | Take 40 mg by mouth | | 0 | | | | (ZOCOR) 40 mg tablet | nightly. | | | | | + + + +---------+--------+ + | tamsulosin | Daily. | | 0 | | | | (FLOMAX) 0.4 mg CAPS | | | | | | + [...] encounter Progress Notes Art Red DO - 11/23/2018 12:29 PM PDT Follow-up Clinic Note Chief Complaint/ICD10 ICD-10-CM ICD-9-CM 1. Carcinoma of oropharynx (HCC) C10.9 146.9 Oncology History: Carcinoma of oropharynx (HCC) 07/10/[address] of the neck with contrast demonstrating a mass extending from the left level tonsil to the left base of tongue measuring 2.9 x 2 cm with a level II left necrotic appearing lymph node measuring 2 x 1.9 cm 07/24/2014 Biopsy Panendoscopy with biopsy confirming poorly differentiated squamous cell carcinoma with ba saloid features strongly positive for p16 07/24/2014 Initial Diagnosis Carcinoma of oropharynx (HCC) 08/27/2014 Surgery Surgeon: Danny Abdullahi Surgery indicated: Tors left partial glossectomy and pharyngectomy with selective neck diss ections levels 2 through 4 Final pathology details: 2.4 cm moderately differentiated squamous cell carcinoma, positive angiolymphatic invasion, 1/6 lymph nodes positive at level IIA focal extranodal extension a nd cauterized surgical margins were positive with tumor extending to the torn and disrupted tissue edge at the anterior/base of tongue. 10/16/2014 - 11/29/2014 Radiation Therapy Total dose 6300 cGy delivered in 30 fractions using differential dosing VMAT technique to draining lymph node regions. History of Present Illness: I had the pleasure seeing Navi Johnson today in clinic. 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 The final pathology of the left base mass demonstrated poorly diffe rentiated squamous cell carcinoma with basaloid features strongly positive for p16. He und erwent transoral robotic surgery with left partial glossectomy and pharyngectomy with hector ctive neck dissection levels 2 through 4 on August 27, [address] Danny Abdullahi at [facility]. Final pathology confirmed a 2.4 cm moderately differentiated nonkeratinizing squamou s cell carcinoma that was positive for angiolymphatic invasion. One of 6 lymph nodes was found positive at level IIA with focal extranodal extension found. Cauterized surgical margins were initially positive with tumor extending to the torn and disrupted tissue edge at the anterior/base of the tongue. Marginal biopsies were negative for residual dise ase. He underwent external beam radiation therapy receiving a total dose of 6300 cGy delivered in 30 fractions using a differential dosing VMAT technique that completed on November 29, 2014 . He is eating a full and regular diet at this time with only difficulty with very dry jake ds. He states that his taste is near normal with the exception of dry foods which is unc hanged by prior historical follow-up. He has returned tothe ENT service routinely at the [facility] in [place] most recently in May 26, 2018 where a flexible nasal lar yngoscopy procedure was performed and found to be negative.No residual disease was seen on this exam and no mucosal abnormalities were seen per the patient. I personally reviewed th e outside notes regarding this case. He states that he will be seen in 6 months at the [facility] marking proximately 5 years since his diagnosis was made. Currently, he hung s no specific concerns or complaints after his last evaluation at the [facility] and presents for routine physical examination as part of his cancer surveillance in the posttrea tment setting. REVIEW OF SYSTEMS Constitutional: Denies fatigue. Denies high fevers, shaking chills, anorexia, nausea, vomit ing, weight loss, or night sweats. Appetite without changes. Ear, Nose, Mouth, Throat: Reports dry mouth continues, unchanged. Reports having to drink w ater with certain textures of food, due to dry mouth. Denies odynophagia, dysphagia, or tinn itus. Cardiovascular: Reports had some chest pain about 2 weeks ago, with tightening of jaw, stat es he spoke with Dr. Angel Lynch about this issue, no issues since. Denies shortness of christofer ath, dyspnea on exertion, palpitations or orthopnea. Respiratory: Reports "a lot of phlegm in throat it gets so thick I can't even get it out if I don't drink enough water". Denies cough or hemoptysis,. Gastrointestinal: Denies abdominal pain, constipation, diarrhea, melena, or bright red bloo d per rectum. Genitourinary: Denies hematuria or dysuria. Musculoskeletal: Denies joint pain or tenderness. Neurologic: Denies headache, visual changes, or numbness/tingling of the extremities. Endocrine: Denies peripheral edema or heat/cold intolerance. Hematologic: Denies spontaneous bruising or bleeding. Integumentary: Denies rash, wounds or other skin concerns. Pain: Denies pain. Note: Here for 1 year follow up with Dr. Red. My chart: Declined Current Outpatient Medications Medication Sig Dispense Refill aspirin 81 mg chewable tablet Take 81 mg by mouth Daily. carvedilol (COREG) 12.5 mg tablet Take 12.5 mg by mouth 2 times daily (with breakfast & dinner). isosorbide mononitrate (IMDUR) 30 mg ER tablet Take 30 mg by mouth Daily. levothyroxine (SYNTHROID) 100 mcg tablet Take 100 mcg by mouth every morning (before br eakfast). Unsure of dose losartan (COZAAR) 50 mg tablet Take 50 mg by mouth Daily. Multiple Vitamins-Minerals (PX MENS MULTIVITAMINS PO) Take 1 tablet by mouth Daily. simvastatin (ZOCOR) 10 mg tablet Take 20 mg by mouth nightly. tamsulosin (FLOMAX) 0.4 mg CAPS Daily. No current facility-administered medications for this encounter. Allergies Allergen Reactions Oxycodone Not Noted Intolerance No active intolerances/contraindications BP 176/80 | Pulse 54 | Temp 36.4 C (97.5 F) (Temporal) | Resp 18 | SpO2 98% Physical Exam Constitutional: He is oriented to person, place, and time. Vital signs are normal. He appea rs well-developed and well-nourished. No distress. HENT: Head: Normocephalic and atraumatic. Nose: Nose normal. Mouth/Throat: Uvula is midline, oropharynx is clear and moist and mucous membranes are norm al. Eyes: Conjunctivae and EOM are normal. No scleral icterus. Neck: Trachea normal. No JVD present. No tracheal deviation present. Cardiovascular: Normal rate. Pulmonary/Chest: Effort normal and breath sounds normal. No accessory muscle usage. No resp iratory distress. Musculoskeletal: Normal range of motion. Lymphadenopathy: Head (right side): No submental, no submandibular, no preauricular and no posterior au ricular adenopathy present. Head (left side): No submental, no submandibular, no preauricular and no posterior aur icular adenopathy present. He has no cervical adenopathy. Right cervical: No superficial cervical, no deep cervical and no posterior cervical ad enopathy present. Left cervical: No superficial cervical, no deep cervical and no posterior cervical amadeo nopathy present. Right: No supraclavicular adenopathy present. Left: No supraclavicular adenopathy present. Neurological: He is alert and oriented to person, place, and time. He has normal strength. No cranial nerve deficit. Coordination normal. Psychiatric: He has a normal mood and affect. His speech is normal and behavior is normal. Judgment and thought content normal. Cognition and memory are normal. Nursing note and vitals reviewed. Fiberoptic laryngoscopy/endoscopy: After verbal consent was obtained, I topically anesthetized the patient's nasal passages wi th 2% lidocaine with oxymetazoline. After inspection and palpation of the oral cavity and or opharynx, I passed a flexible fiberoptic laryngoscope through the left nasal passage to visu april the nasopharynx (fossae of Rosenmueller, torus tubarius, nasopharyngeal aldana), oropha rynx (palatine tonsils, tongue base, palatoglossal/pharyngeal folds, oropharyngeal aldana), s upraglottic larynx (aryepiglottic folds, epiglottis, arytenoids, interarytenoid space, false vocal folds, ventricle), glottic larynx, and piriform sinuses. The subglottic larynx and po stcricoid area were difficult to visualize. Relevant findings are reported here: The base of tongue, vallecula, visualized pharyngeal aldana are healthy-appearing and pink w ith no evidence of telangiectasia formation. The AE folds, false vocal cords, true vocal co rds were visualized without difficulty including the bilateral pyriform sinus demonstrating normal mucosal features. The epiglottis is blunted and unchanged from prior examinations. No pathology was appreciated Labs: No results found for: WBC, HGB, HCT, MCV, LABPLAT, PLT No results found for: CREA, BUN, NA, K, CL, CO2 No results found for: ALT, AST, GGT, ALKPHOS, BILITOT Staging (if applicable): Cancer Staging Carcinoma of oropharynx (HCC) Staging form: Pharynx - Oropharynx, AJCC V7 - Pathologic: Stage III (T2, N1, cM0) - Signed by Spenser Valle MD on 10/03/2014 Histologic grade (G): G2 Residual tumor (R): R1 - Microscopic Impression with Recommendation/Plan: 1. Carcinoma of oropharynx (HCC) Navi Johnson has been previously diagnosed with stage III (T2, N1, M0), p16 positive mod erate to poorly differentiated squamous cell carcinoma of the leftbase of tongue who first underwent TORS resection with selective left neck dissection on August 27, 2014 while at [facility]. The primary lesion was 2.4 cm with a single 2.5 cm left level II lymph node that wa s positive for extracapsular extension focally. The primary tumor was torn with an initi al positive marginthat upon intraoperative biopsy was found negative. He received a tota l dose of 6300 cGy to the postoperative base of tongue site with differential dosing to th e neck lymph nodes which he tolerated well completing on December 02, 2014. Physical exam today including flexible laryngoscopy demonstrates no evidence of recurrence.Today we reviewed l ate toxicities of external beam radiation therapy and reviewed range of motion exercises a nd lymphedema exercises. I will continue to alternate appointments between ENT at the [facility] in [place] in our clinic on a six-month basis moving forward until 5 years where recommended converting to once a year visits either at the [facility] in [place] or in my cli jose. He was encouraged to call our clinic with any further questions or concerns. Thank you for allowing me to participate in the care of Navi. If you should have any qu estions regarding this evaluation, please do not hesitate to contact me. Art Red D.O., ALIER Radiation Oncologist Department of Radiation Oncology [facility] This note was transcribed using [email or web address] speech recognition software. As a result, there may be unintended for medical and/or spelling errors. Every attempt is made to correct dictati on. If there are any questions or errors please contact our office. documented in this enco unter Plan of Treatment +--------+ + + + + | Date | Type | Specialty | Care Team | Description | +--------+ + + + + | 12/10/ | Appointment | Radiation Oncology | Art Red DO | | 2019 | | | [address] | | | | | | [place] | | | | | | [address] | | | | | | | | +--------+ + + + + | 03/13/ | Office | Cardiology | Sophie Delacruz, | | 2019 | Visit | | MD [address] | | | | | | [place] | | | | | | [address] | | | | | | | | +--------+ + + + + documented as of this encounter Visit Diagnoses + + | Diagnosis | + + | Carcinoma of oropharynx (HCC) - Primary Malignant neoplasm of oropharynx, unspecified | | site | + + documented in this encounter
--- OUTSIDE RECORDS SUMMARY | ~2019-06-05 | XMS | Encounter Summary ---
Demographics + + + | Address | [address] | | | [place] [address] | + + + | Home Phone | | + + + | Preferred Language | Unknown | + + + | Marital Status | | + + + | Zoroastrianism Affiliation | Unknown | + + + | Race | Unknown | + + + | Ethnic Group | Unknown | + + + Author + + + | Author | [facility] | | | and [place] | + + + | Organization | [facility] [...] [place] | | | | | [address] | | + + + + + Care Team Providers + +------+ + | Care Certified Athletic Trainer Name | Role | Phone | + +------+ + | Ruy Chaparro MD | PCP | | + +------+ + Encounter Details +--------+ + + + + | Date | Type | Department | Care Team | Description | +--------+ + + + + | 12/03/ | Documentati | [facility] | Chuy, | | | 2014 | on | MED CTR SPEECH | Michelle Weeks, Speech | | | | | THERAPY [address] | Pathologist [address] | | | | [place], | [address] [place] | | | | | [place] [address] | [place] [address] | | | | | [phone] | [phone] | | | | | | | [...] Progress Notes Michelle Mcnally Speech Pathologist - 12/03/2014 10:54 [facility] [address] [place] [address] Cancellation/No Show Date: 12/03/2014 Patient Information Patient Name: Navi Johnson Date of : 1935 Age: 79 y.o. Reason for missed visit: Pt had a schedule conflict Phone call placed: no Plan: Resume treatment at next scheduled visit. Electronically signed by: KIMI VasquezO, 12/03/2014 10:54 Patient Name: Navi Johnson/: 1935/ documented in [...] [place] | | | | | | [address] | | | | | | | | +--------+ + + + + | 03/13/ | Office | Cardiology | Sophie Delacruz, | | | 2019 | Visit | | MD [address] | | | | | | [place] | | | | | | [address] | | | | | | | | +--------+ + + + + documented as of this encounter Visit Diagnoses + + | Diagnosis | + + | Dysphagia - Primary Dysphagia, unspecified | + + documented in this encounter"
--- OUTSIDE RECORDS SUMMARY | ~2019-06-05 | XMS | Encounter Summary ---
Demographics + + + | Address | [address] | | | [place] [address] | + + + | Home Phone | | + + + | Preferred Language | Unknown | + + + | Marital Status | | + + + | Yarsani Affiliation | NON | + + + | Race | White | + + + | Ethnic Group | Not or | + + + Author + + + | Author | [facility] | + + + | Organization | [facility] | + + + | Address | Unknown | + + + | Phone | Unavailable | + + + Support + + +---------+ + | Name | Relationship | Address | Phone | + + +---------+ + | Kofia Alex | ECON | Unknown | | + + +---------+ + Care Team Providers + +------+ + | Care Automation/Controls Manager Name | Role | Phone | + +------+ + | Cong Freeman MD | PCP | | + +------+ + Encounter Details +--------+ + + + + | Date | Type | Department | Care Team | Description | +--------+ + + + + | 12/08/ | Document-Sc | Health Information | Unknown . | | | 2018 | anned | Services [address] | | | | | [address] | | | | | | Mailcode: [id number] | | | | | | [facility] | | | | | | [place], [place] | | | | | | [address] | | | | | | [phone] | | | +--------+ + + + [...]
--- OUTSIDE RECORDS SUMMARY | ~2019-06-05 | XMS | Encounter Summary ---
Demographics + + + | Address | [address] | | | [place] [address] | + + + | Home Phone | | + + + | Preferred Language | Unknown | + + + | Marital Status | | + + + | Buddhism Affiliation | Unknown | + + + | Race | Unknown | + + + | Ethnic Group | Unknown | + + + Author + + + | Author | [facility] | | | and [place] | + + + | Organization | [facility] | | [...] [place] | | | | | [address] | | + + + + + Care Team Providers + +------+ + | Care Manager Of Enterprise Name | Role | Phone | + +------+ + | Ruy Chaparro MD | PCP | | + +------+ + Encounter Details +--------+ + + + + | Date | Type | Department | Care Team | Description | +--------+ + + + + | 11/22/ | Orders Only | [facility] | Art Red DO | | | 2014 | | MED CTR RADIATION | [address] | | | | | ONCOLOGY [address] | [place], [place] | | | | | [place], | [address] | | | | | [place] [address] | | | | | | [phone] | | | +--------+ + + + [...] [place] | | | | | | [id number] | | | | | | | | +--------+ + + + + | 03/13/ | Office | Cardiology | Sophie Delacruz, | | | 2019 | Visit | | MD [address] | | | | | | [place] | | | | | | [id number] | | | | | | | | +--------+ + + + + documented as of this encounter Visit Diagnoses Not on filedocumented in this encounter"
--- OUTSIDE RECORDS SUMMARY | ~2019-06-05 | XMS | Encounter Summary ---
Demographics + + + | Address | [address] | | | [place] [address] | + + + | Home Phone | | + + + | Preferred Language | Unknown | + + + | Marital Status | | + + + | Yarsanism Affiliation | NON | + + + | Race | White | + + + | Ethnic Group | Not or | + + + Author + + + | Author | [facility] | + + + | Organization | [facility] | + + + | Address | Unknown | + + + | Phone | Unavailable | + + + Support + + +---------+ + | Name | Relationship | Address | Phone | + + +---------+ + | Kofia Alex | ECON | Unknown | | + + +---------+ + Care Team Providers + +------+ + | Care Tearer Name | Role | Phone | + [...] cancer | [address] | n [place] | | | | | of tongue | [facility] | [facility] | | | | | (HCC) | [address] | [address] | | | | | Procedures | [place], | [address] | | | | | [place] | [place] [address] | [facility] | | | | | NECK | Phone: | [address] | | | | | | [phone] | [place], [place] | | | | | | Fax: | [address] Phone: | | | | | | [phone] | [phone] | | | | | | | Fax: | | | | | | | [phone] | +--------+--------+ + + + + Encounter Details +--------+ + + + + | Date | Type | Department | Care Team | Description | +--------+ + + + + | 08/09/ | Hospital | Radiation Oncology | | | | 2014 | Encounter | at [facility] [address] | | | | | | [place] | | | | | | [id number] | | | | | | [facility] | | | | | | [place] [address] | | | | | | [phone] | | | +--------+ + + + [...] [facility] | [address] | [place], [place] | | | [facility] | [address] | [address] | | | TESTS | | | [...]
--- OUTSIDE RECORDS SUMMARY | ~2019-06-05 | XMS | Encounter Summary ---
Demographics + + + | Address | [address] | | | [place] [address] | + + + | Home Phone [...] + + + | Author | [facility] | + + + | Organization | [facility] | + + + | Address | Unknown | + + + | Phone | Unavailable | + + + Support + + +---------+ + | Name | Relationship | Address | Phone | + + +---------+ + | Kofia Alex | ECON | Unknown | | + + +---------+ + Care Team Providers + +------+ + | Care Elementary Librarian Name | Role | Phone | + +------+ + | Cong Freeman MD | PCP | | + +------+ + Reason for Referral Diagnostic Testing (Routine) +--------+--------+ + + + [...] cancer | [address] | [facility] | | | | | of tongue | [facility] | [facility] | | | | | (HCC) | [address] | [address] | | | | | Procedures | [place], | [address] | | | | | [place] | [place] [address] | [facility] | | | | | NECK | Phone: | [address] | | | | | | [phone] | [place], [place] | | | | | | Fax: | [address] Phone: | | | | | | [phone] | [phone] | | | | | | | Fax: | | | | | | | [phone] | +--------+--------+ + + + + Encounter Details +--------+ + + + + | Date | Type | Department | Care Team | Description | +--------+ + + + + | 08/01/ | Outside | Radiation Oncology | Ryan De La Cruz, | | | 2014 | Referral | at [facility] [address] | [address] | | | | Order | [address] | [place] [address] | | | | | [id number] [facility] | [phone] | | | | | [facility], | | | | | | [place] [address] | | | | | | [phone] | | | +--------+ + + + [...] (HCC) | | + +---------+--------+ + + + +---------+--------+ + + | Name | Type | Priori | Associated Diagnoses | Order Schedule | | | | ty | | | + +---------+--------+ + + | [facility] [place] [facility] | Imaging | Routin | Squamous cell | Expected: | | | | e | cancer of tongue | 08/01/2014, Expires: | | | | | (HCC) | 09/02/2015 | + +---------+--------+ + + documented as of this encounter Visit Diagnoses + + | Diagnosis | + + | 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
--- OUTSIDE RECORDS SUMMARY | ~2019-06-05 | XMS | Encounter Summary ---
Demographics + + + | Address | [address] | | | [place] [address] | + + + | Home Phone | | + + + | Preferred Language | Unknown | + + + | Marital Status | | + + + | Restorationism Affiliation | NON | + + + | Race | White | + + + | Ethnic Group | Not or | + + + Author + + + | Author | [facility] | + + + | Organization | [facility] | + + + | Address | Unknown | + + + | Phone | Unavailable | + + + Support + + +---------+ + | Name | Relationship | Address | Phone | + + +---------+ + | Kofia Alex | ECON | Unknown | | + + +---------+ + Care Team Providers + +------+ + | Care Fast Food Worker Name | Role | Phone | [...] | [address] | n [facility] | | | | | of tongue | [facility] | [facility] | | | | | (HCC) | [address] | C[address] | | | | | Procedures | [place], | [address] | | | | | [place] | [place] [address] | [facility] | | | | | NECK | Phone: | [address] | | | | | | [phone] | [place], [place] | | | | | | Fax: | [address] Phone: | | | | | | [phone] | [phone] | | | | | | | Fax: | | | | | | | [phone] | +--------+--------+ + + + + Encounter [...] Ave | | | | Order | [address] | [place] [address] | | | | | [id number] [facility] | [phone] | | | | | [facility], | | | | | | [place] [address] | | | | | | [phone] | | | +--------+ + + + [...]
--- OUTSIDE RECORDS SUMMARY | ~2019-06-05 | XMS | Encounter Summary ---
Demographics + + + | Address | [address] | | | [place] [address] | + + + | Home Phone | | + + + | Preferred Language | Unknown | + + + | Marital Status | | + + + | Mandaen Affiliation | Unknown | + + + | Race | Unknown | + + + | Ethnic Group | Unknown | + + + Author + + + | Author | [facility] | | | and [place] | + + + | Organization | [facility] | | [...] [place] | | | | | [address] | | + + + + + Care Team Providers + +------+ + | Care Artist Representative Name | Role | Phone | [...] + + + + | 11/23/ | Telephone | [facility] | Art Red DO | Other | | 2018 | | [facility] RAD[facility] | [address] | | | | | ONCOLOGY CLINIC [address] | [place], [place] | | | | | [address] [place] | [address] | | | | | [place] [address] | | | | | | [phone] | | | +--------+ + + + [...] [place] | | | | | | [address] | | | | | | | | +--------+ + + + + | 03/13/ | Office | Cardiology | Sophie Delacruz, | | | 2019 | Visit | Rosemarie DIAZ | | | | | | [place] | | | | | | [address] | | | | | | | | +--------+ + + + + documented as of this encounter Visit Diagnoses Not on filedocumented in this encounter"
--- OUTSIDE RECORDS SUMMARY | ~2019-06-05 | XMS | Encounter Summary ---
Demographics + + + | Address | [address] | | | [place] [address] | + + + | Home Phone | | + + + | Preferred Language | Unknown | + + + | Marital Status | | + + + | Buddhism Affiliation | Unknown | + + + | Race | Unknown | + + + | Ethnic Group | Unknown | + + + Author + + + | Author | [facility] | | | and [place] | + + + | Organization | [facility] | | [...] [place] | | | | | [address] | | + + + + + Care Team Providers + +------+ + | Care Audio Visual Engineer Name | Role | Phone | + [...] Cancer of | Art Holloway DO | Entry Rep [address] | | | Required | | base of | [address] | [place] | | | | | tongue (HCC) | [address] | [place], [place] | | | | | [address] | [place], | [address] | | | | | (ICD-9-CM) - | [place] [address] | Phone: | | | | | Cancer of | Phone: | [phone] | | | | | base of | [phone] | Fax: | | | | | tongue (HCC) | Fax: | [phone] | | | | | Procedures | [phone] | | | | | | Speech | | | +--------+ + + + + + Encounter Details +--------+ + + + + | Date | Type | Department | Care Team | Description | +--------+ + + + + | 11/27/ | Hospital | [facility] | Ruy Chaparro | Dysphagia (Primary | | 2015 | Encounter | MED CTR SPEECH | MD Jason [address] | Dx) | | | | THERAPY [address] | [address] [place] | | | | | [place], | [place] [address] | | | | | [place] [address] | [phone] | | | | | [phone] | | | | | | | Michelle Vera | | | | | | M, Speech | | | | | | Pathologist [address] | | | | [address] [place] | | | | | | [place] [address] | | | | | | [phone] | | | | | | | [...] Progress Notes Michelle Mcnally, Speech Pathologist - 11/27/2014 5:17 PM PDT [facility] [address] [place] [address] Speech Therapy Daily Treatment Note Date: 11/27/2014 Patient Information Patient Name: Navi Johnson Date of : 1935 Age: 79 y.o. Encounter Diagnoses Code Name Primary? 787.20 Dysphagia Yes Date of Onset: 08/27/14 Referring Provider: Ruy Chaparro MD Rehab Precautions [facility] CAR STOWER OP EVAL from 10/03/2014 in [facility] SPE[facility] Rehab Precautions Precautions Hearing impairment, Vision impairment Rehab Learning Style Office Visit from 10/08/2014 in [facility] THERAPY OT OP [facility] CAR STOWER OP E ANTONY from 10/03/2014 in [facility] SPE[facility]CH [facility]ERAP[facility] Learning Style Patient's Optimum Learning Style reading, performance of task performance of task Pain Assessment Pain Scale Used: FLACC Pain Rating During Assessment: 0 Today's Treatment Patient Name: Navi Matias Alex/: 1935/ Start Time: 0940 Stop time: 1000 Duration: 20 minutes Timed Treatment Codes: 0 minutes # of Speech Visits to Date: 4 Visit Summary: Pt seen for session with , CAR STOWER student, and CAR STOWER in training. Pt reported that he is now medicating with more morphine per doctor's approval, however he is still exp eriencing intense pain during the swallow. He reported that he still uses a spit bucket to s pit, takes in about 700 calories /day, and doesn't drink enough water. He reported his taste is still affected, and that he uses his rinses, and is performing oral care x2/day. CAR STOWER pro vided the Pt with a research article on importance of adhereing to swallow strengthening exe rcises during HN CA treatment to maintian swallow ability with the hopes of increasing compl iance. CAR STOWER discussed with creative technologist how many kcal he should ingest each day, and what types of liquids he can use to take in the many calories. CAR STOWER wo work with Pt and his on swal low strengthening exercises at next visit. Next Visit: Swallow eval of varied textures, diet texture modification and oral motor exerc ise, education CAR STOWER Treatment CAR STOWER Treatment: patient/caregiver education, home program instruction, compensatory strategi es Patient/Caregiver Education Learner: Patient Readiness: Acceptance Method: Explanation, Demonstration, Handout Response: Verbalizes Understanding, Demonstrated Understanding, Needs Reinforcement Learner: Significant Readiness: Acceptance Method: Explanation, Demonstration, Handout Response: Verbalizes Understanding Speech Home Exercises Speech Home Exercises: Home Ex #1 Home Exercise #1: Planning to give pain medications prior to meals 1 hour. Home Exercise Duration #1: Daily Home Exercise Reps #1: daily Assessment Rehabilitation potential: Patient demonstrates good potential to achieve established goals to address the documented impairments by participating in skilled speech and language therap y services. Outcome Specific Scored Goals Patient's Primary Functional Goal 1: Pt will use strategies taught and diet texture modific ation in order for him to sustain his needs and eat safely Primary Functional Goal 1 Status Comment: Pt is not able to perform exercises d/t pharyngea l pain. Education provided about need for exercises Goal Motor Speech STG Motor Speech: Pt will demonstrate adequate ROM of jaw and lingual structures after perf orming oral motor exercises daily as prescribed during radiation treatment to maintain abili ty to chew and speak. Motor Speech LTG Status: Continued LTG Motor Speech: Pt will report that he is able to return to dysphagia advanced diet textu res and thin liquids with no swallowing difficulty in 2/3 meals/ day. Electronically signed by: Michelle Mcnally SPEECH PATHO, 11/27/2014 17:18 Patient Name: Navi Matias Alex/: 1935/ documented [...] [place] | | | | | | [address] | | | | | | | | +--------+ + + + + | 03/13/ | Office | Cardiology | Sophie Delacruz, | | | 2019 | Visit | | MD Chivo DIAZ | | | | | | [place] | | | | | | [address] | | | | | | | | +--------+ + + + + documented as of this encounter Visit Diagnoses + + | Diagnosis | + + | Dysphagia - Primary Dysphagia, unspecified | + + documented in this encounter"
--- OUTSIDE RECORDS SUMMARY | ~2019-06-05 | XMS | Encounter Summary ---
Demographics + + + | Address | [address] | | | [place] [address] | + + + | Home Phone [...] + + | Author | [facility] | | | and [place] | + + + | Organization | [facility] | | | [...] [place] | | | | | [address] | | + + + + + Care Team Providers + +------+ + | Care Medical Transcriber Name | Role | Phone | + +------+ + | Ryu Chaparro MD | PCP | | + +------+ + Reason for Visit + + + | Reason | Comments | + + + | Edema | | + + + | Pain -Cancer [...] base of | [address] | [address] | | | | | tongue (HCC) | [place], | [place], | | | | | | [place] [address] | [place] [address] | | | | | | Phone: | Phone: | | | | | | [phone] | [phone] | | | | | | Fax: | Fax: | | | | | | [phone] | [phone] | +--------+ + + + + + Encounter Details +--------+---------+ + + + | Date | Type | Department | Care Team | Description | +--------+---------+ + + + | 10/08/ | Office | [facility] | Art Red DO | Carcinoma of | | 2015 | Visit | MED CNT ONCOLOGY | [address] | oropharynx (HCC) | | | | THERAPY [address] | [place] | (Primary Dx) | | | | [place], | [address] | | | | | [place] [address] | | | | | | [phone] | Ann Marie Villegas, | | | [...] Progress Notes Ann Marie Villegas, OT - 10/08/2014 2:17 PM PDT Occupational Therapy Plan of Care Date: 10/08/2014 Patient Name: Navi Johnson Date of : 1935 Encounter Diagnoses Code Name Primary? 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: 08/27/14 Start of Care Date: 10/08/14 Clinical Impression: Clinical Impression: Patient presents to occupational therapy with po st-op pain and edema following surgery for head/neck CA. Objective exam reveals impairments with pain, ROM, and edema. Signs and symptoms are consistent with scar fibrosis, edema, and decreased soft tissue ROM. These impairments and diagnosis are causing functional limitation s with patient s inability to eat foods comfortably and rely on pain medication. Complexit ies contributing to frequency and duration of therapy: radiation tx starting 10/15. OP OT Goals OP OT Goals: Goal 1, Goal 2, Goal 3 Goal 1: Decrease pain from 4/10 to 1/10 at worst to improve ability to perform chewing and eating activities. Goal 2: Independent home exercise program to facilitate independent symptom management. Goal 3: Reduce Brief Pain Inventory score from 35.5 to 25.0 or less indicating improved AD L function and mobility. Requested # of Visits: 6 1x/wk for 6 weeks Certification From: 10/08/14 Certification To: 01/07/15 Treatment Plan/Interventions: 24492 OT Evaluation, 41342 Manual Therapy, 95442 Therapeutic Exercises Ann Marie Villegas OT Patient Name: Nvai Johnson/: 1935/ nn Marie Villegas OT - 10/08/2014 1:40 PM PDT [facility] THERAPY OT OP [address] [place] [address] Occupational Therapy Initial Assessment Date: 10/08/2014 Patient Information Patient Name: Navi Johnson Date of : 1935 Age: 79 y.o. History Encounter Diagnoses Code Name Primary? 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 Patient underwent surgery at [facility] 08/28/19 for transoral robotic resection of L tongue and pharynx w/ elective L neck dissection lev els 2-4. Patient also had 6 nodes dissected at [facility], w/ 06/05 testing +. Patient presents to OT evaluation prior to onset of radiation therapy w/ reports of pain, decreased ROM, and mil d edema to L side of neck. 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 Scar itse lf slightly thickened, especially at distal ends SENSATION: Reports numbness L side of face, superior and inferior to scar line. Impaired l t. Touch along scar line. EDEMA: Mild edema L side of face, primarily inferior to scar line and posterior toward L e ar. Patient measures 13.5 cm from midline at septum to below earlobe on L; 13.0 cm on R. N o pitting or other facial edema noted. Outcome Measure: Patient was tested with the Brief Pain Inventory. With a score of 39/110. ASSESSMENT: Clinical Impression: Patient presents to occupational therapy with post-op pain and edema f ollowing surgery for head/neck CA. Objective exam reveals impairments with pain, ROM, and ed estefanía. Signs and symptoms are consistent with scar fibrosis, edema, and decreased soft tissue ROM. These impairments and diagnosis are causing functional limitations with patient s carlos bility to eat foods comfortably and rely on pain medication. Complexities contributing to fr equency and duration of therapy: radiation tx starting 10/15. Functional Limitation Reporting G Code Severity Modifier Current Status G8987 Self care functional limitation, current status, at therapy episode outset and at reporting intervals CJ At least 20 percent but less than 40 percent impaired, limited or restricted Goal G8988 Self care functional limitation, projected goal status CI At least 1 percent bu t less than 20 percent impaired, limited or restricted Based upon pain level of 4/10 and a score of 35.5 on the Brief Pain Inventory Functional Ou tcome Measurement Tool. With occupational therapy interventions, this patient is expected to achieve the goal G-code stated above Rehabilitation potential: Patient demonstrates good potential to achieve established goals to address the above documented impairments and to reach the following functional goals by p articipating in skilled occupational therapy services. LONG-TERM GOAL: Decrease pain from 4/10 to 1/10 at worst to improve ability to perform chewing and eating a ctivities. Independent home exercise program to facilitate independent symptom management. Reduce Brief Pain Inventory score from 35.5 to 25.0 or less indicating improved ADL functi on and mobility. Requested # of Visits: 6 1x/wk for 6 weeks Certification From: 10/08/14 Certification To: 01/07/15 Start of Care Date: 10/08/14 Treatment Plan/Interventions 93490 OT Evaluation, 79468 Manual Therapy, 13625 Therapeutic Exercises Patient and/or family has indicated understanding of treatment needs and actively participa lily in the creation of this plan for care. Today's Treatment Start Time: 1150 Stop time: 1300 Duration: 70 minutes Timed Treatment Codes: 45 minutes # of OT Visits: 1 Objective: Education of rehab timeline, focus and expectations. Instructed in scar massage techs; instructed in MLM techs for edema flow/drainage and pain mgmt Initial eval completed. Patient and spouse instructed in MLM and scar massage techs and hung ndouts issued. Also instructed in basic neck ROM for improving circulation and pain mgmt. Next Visit: Review MLM and scar massage; upgrade HEP to include further exs for improving R OM and jaw/mouth function during radiation. Electronically signed by: Ann Marie Villegas OT, 10/08/2014 14:16 Patient Name: Navi Matias Alex/: 1935/ documented [...] [place] | | | | | | [address] | | | | | | | | +--------+ + + + + | 03/13/ | Office | Cardiology | Sophie Delacruz, | | | 2019 | Visit | | MD Chivo DIAZ | | | | | | [place] | | | | | | [phone] | | | | | | | [...]
--- OUTSIDE RECORDS SUMMARY | ~2019-06-05 | XMS | Encounter Summary ---
Demographics + + + | Address | [address] | | | [place] [address] | + + + | Home Phone | | + + + | Preferred Language | Unknown | + + + | Marital Status | | + + + | Mandaen Affiliation | Unknown | + + + | Race | Unknown | + + + | Ethnic Group | Unknown | + + + Author + + + | Author | [facility] | | | and [place] | + + + | Organization | [facility] | | | [...] [place] | | | | | [address] | | + + + + + Care Team Providers + +------+ + | Care Classics Teacher Name | Role | Phone | [...] [place], [place] | | | | | [place], | [address] | | | | | [place] [address] | | | | | | [phone] | | | +--------+ + + + [...] [place] | | | | | | [id number] | | | | | | | | +--------+ + + + + | 03/13/ | Office | Cardiology | Sophie Delacruz, | | | 2019 | Visit | | MD Chivo DIAZ | | | | | | [place] | | | | | | [phone] | | | | | | | | +--------+ + + + + documented as of this encounter Visit Diagnoses Not on filedocumented in this encounter"
--- OUTSIDE RECORDS SUMMARY | ~2019-06-05 | XMS | Encounter Summary ---
Demographics + + + | Address | [address] | | | [place] [address] | + + + | Home Phone [...] [place] | | | | | [address] | | + + + + + Care Team Providers + +------+ + | Care County Demonstrator Name | Role | Phone | [...] [place], [place] | | | | | [place], | [address] | | | | | [place] [address] | | | | | | [phone] | | | +--------+ + + + [...] [place] | | | | | | [address] | | | | | | | | +--------+ + + + + | 03/13/ | Office | Cardiology | Sophie Delacruz, | | | 2019 | Visit | | MD Chivo DIAZ | | | | | | [place] | | | | | | [address] | | | | | | | | +--------+ + + + + documented as of this encounter Visit Diagnoses Not on filedocumented in this encounter"
--- OUTSIDE RECORDS SUMMARY | ~2019-06-05 | XMS | Encounter Summary ---
Demographics + + + | Address | [address] | | | [place] [address] | + + + | Home Phone | | + + + | Preferred Language | Unknown | + + + | Marital Status | | + + + | Bahai Affiliation | NON | + + + | Race | White | + + + | Ethnic Group | Not or | + + + Author + + + | Author | [facility] | + + + | Organization | [facility] | + + + | Address | Unknown | + + + | Phone | Unavailable | + + + Support + + +---------+ + | Name | Relationship | Address | Phone | + + +---------+ + | Kofia Alex | ECON | Unknown | | + + +---------+ + Care Team Providers + +------+ + | Care Pre Press Operator Name | Role | Phone | [...] Head and Neck | MD Jessy [address] | | | | | Surgery Services at | [facility] | | | | | [address] | [place], [place] | | | | | [address] | [address] | | | | | Mailcode: [id number] | [phone] | | | | | [facility] | | | | | | [place], [place] | | | | | | [address] | | | | | | [phone] | | | +--------+ + + + [...]
--- OUTSIDE RECORDS SUMMARY | ~2019-06-05 | XMS | Encounter Summary ---
Demographics + + + | Address | [address] | | | [place] [address] | + + + | Home Phone | | + + + | Preferred Language | Unknown | + + + | Marital Status | | + + + | Scientologist Affiliation | Unknown | + + + | Race | Unknown | + + + | Ethnic Group | Unknown | + + + Author + + + | Author | [facility] | | | and [place] | + + + | Organization | [facility] | | | [...] [place] | | | | | [address] | | + + + + + Care Team Providers + +------+ + | Care Discovery Guide Name | Role | Phone | + +------+ + | Ruy Chaparro MD | PCP | | + +------+ + Encounter Details +--------+ + + + + | Date | Type | Department | Care Team | Description | +--------+ + + + + | 11/20/ | Orders Only | [facility] | Art Red DO | | | 2014 | | MED CTR RADIATION | [address] | | | | | ONCOLOGY [address] | [place], [place] | | | | | [place], | [address] | | | | | [place] [address] | | | | | | [phone] | | | +--------+ + + + [...] [place] | | | | | | [id number] | | | | | | | | +--------+ + + + + | 03/13/ | Office | Cardiology | Sophie Delacruz, | | | 2019 | Visit | | MD Chivo DIAZ | | | | | | [place] | | | | | | [phone] | | | | | | | | +--------+ + + + + documented as of this encounter Visit Diagnoses Not on filedocumented in this encounter"
--- OUTSIDE RECORDS SUMMARY | ~2019-06-05 | XMS | Encounter Summary ---
Demographics + + + | Address | [address] | | | [place] [address] | + + + | Home Phone | | + + + | Preferred Language | Unknown | + + + | Marital Status | | + + + | Samaritan Affiliation | Unknown | + + + | Race | Unknown | + + + | Ethnic Group | Unknown | + + + Author + + + | Author | [facility] | | | and [place] | + + + | Organization | [facility] | | [...] [place] | | | | | [address] | | + + + + + Care Team Providers + +------+ + | Care Windows Server Engineer Name | Role | Phone | [...] | | MD Prakash | | [place] [address] | | | | | [facility] | | Phone: | | | | | Procedures | | [phone] | | | | | NEW PATIENT | | Fax: | | | | | | | [phone] | +--------+--------+ + + + + Encounter Details +--------+ + + + + | Date | Type | Department | Care Team | Description | +--------+ + + + + | 10/03/ | Hospital | [facility] | Art Red, | | | 2015 | Encounter | MED CTR RADIATION | [address] | | | | | ONCOLOGY [address] | [place] | | | | | [place], | [address] | | | | | [place] [address] | | | | | | [phone] | | | +--------+ + + + [...] [place] | | | | | | [address] | | | | | | | | +--------+ + + + + | 03/13/ | Office | Cardiology | Sophie Delacruz, | | | 2019 | Visit | | MD Chivo DIAZ | | | | | | [place] | | | | | | [phone] | | | | | | | | +--------+ + + + + documented as of this encounter Visit Diagnoses Not on filedocumented in this encounter"
--- OUTSIDE RECORDS SUMMARY | ~2019-06-05 | XMS | Encounter Summary ---
Demographics + + + | Address | [address] | | | [place] [address] | + + + | Home Phone | | + + + | Preferred Language | Unknown | + + + | Marital Status | | + + + | Restorationist Affiliation | Unknown | + + + | Race | Unknown | + + + | Ethnic Group | Unknown | + + + Author + + + | Author | [facility] | | | and [place] | + + + | Organization | [facility] | | | and [place] | + + + | Address | Unknown | + + + | Phone | Unavailable | + + + Support + + + + + | Name | Relationship | Address | Phone | + + + + + | Koficrystal Alex | ECON | [address] | | | | | [place] | | | | | [address] | | + + + + + Care Team Providers + +------+ + | Care Soils Engineer Name | Role | Phone | + +------+ + PCP | Unavailable | + +------+ + Encounter Details +--------+ + + + + | Date | Type | Department | Care Team | Description | +--------+ + + + + | 07/16/ | [facility] | [facility] | | | | 1998 | Encounter | MED CTR SLEEP | | | | | | [address] | | | | | | [place] | | | | | | [address] | | | | | | [phone] | | | +--------+ + + + [...] [place] | | | | | | [address] | | | | | | | | +--------+ + + + + | 03/13/ | Office | Cardiology | Sophie Delacruz, | | | 2019 | Visit | | MD Chivo DIAZ | | | | | | [place] | | | | | | [address] | | | | | | | | +--------+ + + + + documented as of this encounter Visit Diagnoses Not on filedocumented in this encounter"
--- OUTSIDE RECORDS SUMMARY | ~2019-06-05 | XMS | Encounter Summary ---
Demographics + + + | Address | [address] | | | [place] [address] | + + + | Home Phone | | + + + | Preferred Language | Unknown | + + + | Marital Status | | + + + | Latter-Day Affiliation | Unknown | + + + | Race | Unknown | + + + | Ethnic Group | Unknown | + + + Author + + + | Author | [facility] | | | and [place] | + + + | Organization | [facility] | | | [...] [place] | | | | | [address] | | + + + + + Care Team Providers + +------+ + | Care Spring Tacker Name | Role | Phone | + [...] [place] | | | | | [address] [place] | [place] [address] | | | | | [place] [address] | [phone] | | | | | [phone] | | | +--------+ + + + [...] [place] | | | | | | [address] | | | | | | | | +--------+ + + + + | 03/13/ | Office | Cardiology | Sophie Delacruz, | | | 2020 | Visit | | MD Chivo DIAZ | | | | | | [place] | | | | | | [address] | | | | | | | | +--------+ + + + + documented as of this encounter Visit Diagnoses Not on filedocumented in this encounter"
--- OUTSIDE RECORDS SUMMARY | ~2019-06-05 | XMS | Encounter Summary ---
Demographics + + + | Address | [address] | | | [place] [address] | + + + | Home Phone | | + + + | Preferred Language | Unknown | + + + | Marital Status | | + + + | Jainism Affiliation | Unknown | + + + | Race | Unknown | + + + | Ethnic Group | Unknown | + + + Author + + + | Author | [facility] | | | and [place] | + + + | Organization | [facility] | | [...] [place] | | | | | [address] | | + + + + + Care Team Providers + +------+ + | Care Instrument Shop Supervisor Name | Role | Phone | + +------+ + | Ruy Chaparro MD | PCP | | + +------+ + Encounter Details +--------+ + + + + | Date | Type | Department | Care Team | Description | +--------+ + + + + | 12/13/ | Orders Only | [facility] | Art Red DO | | | 2014 | | MED CTR RAD[facility]ATION | [address] | | | | | ONCOLOGY [address] | [place], [place] | | | | | [place], | [address] | | | | | [place] [address] | | | | | | [phone] | | | +--------+ + + + [...] [place] | | | | | | [id number] | | | | | | | | +--------+ + + + + | 03/13/ | Office | Cardiology | Sophie Delacruz, | | | 2019 | Visit | | MD Chivo DIAZ | | | | | | [place] | | | | | | [id number] | | | | | | | | +--------+ + + + + documented as of this encounter Visit Diagnoses Not on filedocumented in this encounter"
--- OUTSIDE RECORDS SUMMARY | ~2019-06-05 | XMS | Encounter Summary ---
Demographics + + + | Address | [address] | | | [place] [address] | + + + | Home Phone | | + + + | Preferred Language | Unknown | + + + | Marital Status | | + + + | Druze Affiliation | Unknown | + + + | Race | Unknown | + + + | Ethnic Group | Unknown | + + + Author + + + | Author | [facility] | | | and [place] | + + + | Organization | [facility] | | | [...] [place] | | | | | [address] | | + + + + + Care Team Providers + +------+ + | Care Black Studies Professor Name | Role | Phone | + +------+ + | Ruy Chaparro MD | PCP | | + +------+ + Encounter Details +--------+ + + + + | Date | Type | Department | Care Team | Description | +--------+ + + + + | 11/06/ | Orders Only | [facility] | Art Red DO | | | 2014 | | MED CTR RADIATION | [address] | | | | | ONCOLOGY [address] | [place], [place] | | | | | [place], | [address] | | | | | [place] [address] | | | | | | [phone] | | | +--------+ + + + [...] [place] | | | | | | [id number] | | | | | | | | +--------+ + + + + | 03/13/ | Office | Cardiology | Sophie Delacruz, | | | 2019 | Visit | | MD Chivo DIAZ | | | | | | [place] | | | | | | [phone] | | | | | | | | +--------+ + + + + documented as of this encounter Visit Diagnoses Not on filedocumented in this encounter"
--- OUTSIDE RECORDS SUMMARY | ~2019-06-05 | XMS | Encounter Summary ---
Demographics + + + | Address | [address] | | | [place] [address] | + + + | Home Phone | | + + + | Preferred Language | Unknown | + + + | Marital Status | | + + + | Pentecostal Affiliation | Unknown | + + + [...] [place] | | | | | [address] | | + + + + + Care Team Providers + +------+ + | Care Senior Interior Designer Name | Role | Phone | + [...] | | ONCOLOGY CLINIC [address] | [place], [place] | | | | | [facility] | [address] | | | | | [place] [address] | | | | | | [phone] | | | +--------+ + + + [...] [place] | | | | | | [address] | | | | | | | | +--------+ + + + + | 03/13/ | Office | Cardiology | Sophie Delacruz, | | | 2019 | Visit | | MD Chivo DIAZ | | | | | | [place] | | | | | | [address] | | | | | | | | +--------+ + + + + documented as of this encounter Visit Diagnoses Not on filedocumented in this encounter"
--- OUTSIDE RECORDS SUMMARY | ~2019-06-05 | XMS | Encounter Summary ---
Demographics + + + | Address | [address] | | | [place] [address] | + + + | Home Phone | | + + + | Preferred Language | Unknown | + + + | Marital Status | | + + + | Presybeterian Affiliation | Unknown | + + + | Race | Unknown | + + + | Ethnic Group | Unknown | + + + Author + + + | Author | [facility] | | | and [place] | + + + | Organization | [facility] | | | [...] [place] | | | | | [address] | | + + + + + Care Team Providers + +------+ + | Care Teletypesetter Name | Role | Phone | + +------+ + | Ruy Chaparro MD | PCP | | + +------+ + Encounter Details +--------+ + + + + | Date | Type | Department | Care Team | Description | +--------+ + + + + | 10/04/ | Telephone | [facility] | Ann Marie Villegas | | | 2014 | | MED CNT ONCOLOGY | A, OT | | | | | THERAPY [address] | | | | | | [place], | | | | | | [place] [address] | | | | | | [phone] | | | +--------+ + + + [...] [place] | | | | | | [address] | | | | | | | | +--------+ + + + + | 03/13/ | Office | Cardiology | Sophie Delacruz, | | | 2019 | Visit | | MD Chivo DIAZ | | | | | | [place] | | | | | | [phone] | | | | | | | | +--------+ + + + + documented as of this encounter Visit Diagnoses Not on filedocumented in this encounter"
--- OUTSIDE RECORDS SUMMARY | ~2019-06-05 | XMS | Encounter Summary ---
Demographics + + + | Address | [address] | | | [place] [address] | + + + | Home Phone | | + + + | Preferred Language | Unknown | + + + | Marital Status | | + + + | Yazdanism Affiliation | NON | + + + | Race | White | + + + | Ethnic Group | Not or | + + + Author + + + | Author | [facility] | + + + | Organization | [facility] | + + + | Address | Unknown | + + + | Phone | Unavailable | + + + Support + + +---------+ + | Name | Relationship | Address | Phone | + + +---------+ + | Kofia Alex | ECON | Unknown | | + + +---------+ + Care Team Providers + +------+ + | Care Fisher Net Name | Role | Phone | + [...] [address] | | | | | | [place], [place] | | | | | | [address] | | | +--------+ + + + [...]
--- OUTSIDE RECORDS SUMMARY | ~2019-06-05 | XMS | Encounter Summary ---
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[place], | | | | | tongue (HCC) | [address] | [place] | | | | | Procedures | [place], | [address] | | | | | MRI Neck | [place] [address] | Phone: | | | | | Soft Tissue | Phone: | [phone] | | | | | Only w wo | [phone] | Fax: | | | | | Contrast | Fax: | [phone] | | | | | | [phone] | | +--------+--------+ + + + + Reason for Visit Diagnostic/Screening (Routine) +--------+--------+ + + + + | Status | Reason | Specialty | Diagnoses / | Referred By | Referred To | | | | | Procedures | Contact | Contact | +--------+--------+ + + + + | Closed | | Radiology | Diagnoses | Lord, | [facility] | | | | | Cancer of | Art C, DO | [address] | | | | | base of | [address] | [place], | | | | | tongue (HCC) | [address] | [place] | | | | | Procedures | [place], | [address] | | | | | MRI Neck | [place] [address] | Phone: | | | | | Soft Tissue | Phone: | [phone] | | | | | Only w wo | [phone] | Fax: | | | | | Contrast | Fax: | [phone] | | | | | | [phone] | | +--------+--------+ + + + + Encounter Details +--------+ + + + + | Date | Type | Department | Care Team | Description | +--------+ + + + + | 10/08/ | Hospital | [facility] | Art Red DO | Cancer of base of | | 2014 | Encounter | MED CTR MRI [address] | [address] | tongue (HCC) | | | | [place], | [place], [place] | | | | | [place] [address] | [address] | | | | | [phone] | | | +--------+ + + + [...] [place] | | | | | | [address] | | | | | | | | +--------+ + + + + | 03/13/ | Office | Cardiology | Sophie Delacruz, | | | 2019 | Visit | | MD [address] | | | | | | [place] | | | | | | [address] | | | | | | | | +--------+ + + + + documented as of this encounter Procedures + +--------+ + + + | Procedure Name | Priori | Date/Time | Associated Diagnosis | Comments | | | ty | | | | + +--------+ + + + | MRI NECK SOFT TISSUE | Routin | 10/08/2014 | Cancer of base of | Results for this | | ONLY W WO CONTRAST | e | 10:58 AM | tongue (HCC) | procedure are in the | | | | PDT | | results section. 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
--- OUTSIDE RECORDS SUMMARY | ~2019-06-05 | XMS | Encounter Summary ---
Demographics + + + | Address | [address] | | | [place] [address] | + + + | Home Phone [...] + + + | Author | [facility] | + + + | Organization | [facility] | + + + | Address | Unknown | + + + | Phone | Unavailable | + + + Support + + +---------+ + | Name | Relationship | Address | Phone | + + +---------+ + | Kofia Alex | ECON | Unknown | | + + +---------+ + Care Team Providers + +------+ + | Care Adjunct Professor Of Law Name | Role | Phone | + +------+ + | Cong Freeman MD | PCP | | + +------+ + Encounter Details +--------+ + + + + | Date | Type | Department | Care Team | Description | +--------+ + + + + | 02/12/ | Document-Sc | Health Information | Unknown . | | | 2017 | anned | Services [id number] | | | | | | [address] | | | | | | Mailcode: [id number] | | | | | | [facility] | | | | | | [place], [place] | | | | | | [address] | | | | | | [phone] | | | +--------+ + + + [...]
--- OUTSIDE RECORDS SUMMARY | ~2019-06-05 | XMS | Encounter Summary ---
Demographics + + + | Address | [address] | | | [place] [address] | + + + | Home Phone | | + + + | Preferred Language | Unknown | + + + | Marital Status | | + + + | Latter-Day Affiliation | Unknown | + + + | Race | Unknown | + + + | Ethnic Group | Unknown | + + + Author + + + | Author | [facility] | | | and [place] | + + + | Organization | [facility] | | [...] [place] | | | | | [address] | | + + + + + Care Team Providers + +------+ + | Care Button Clamper Name | Role | Phone | + +------+ + | Ruy Chaparro MD | PCP | | + +------+ + Encounter Details +--------+ + + + + | Date | Type | Department | Care Team | Description | +--------+ + + + + | 11/29/ | Orders Only | [facility] | Art Red DO | | | 2014 | | MED CTR RADIATION | [address] | | | | | ONCOLOGY [address] | [place], [place] | | | | | [place], | [address] | | | | | [place] [address] | | | | | | [phone] | | | +--------+ + + + [...] [place] | | | | | | [id number] | | | | | | | | +--------+ + + + + | 03/13/ | Office | Cardiology | Sophie Delacruz, | | | 2019 | Visit | | MD Chivo DIAZ | | | | | | [place] | | | | | | [phone] | | | | | | | | +--------+ + + + + documented as of this encounter Visit Diagnoses Not on filedocumented in this encounter"
--- OUTSIDE RECORDS SUMMARY | ~2019-06-05 | XMS | Encounter Summary ---
Demographics + + + | Address | [address] | | | [place] [address] | + + + | Home Phone | | + + + | Preferred Language | Unknown | + + + | Marital Status | | + + + | Gnosticist Affiliation | NON | + + + | Race | White | + + + | Ethnic Group | Not or | + + + Author + + + | Author | [facility] | + + + | Organization | [facility] | + + + | Address | Unknown | + + + | Phone | Unavailable | + + + Support + + +---------+ + | Name | Relationship | Address | Phone | + + +---------+ + | Kofia Alex | ECON | Unknown | | + + +---------+ + Care Team Providers + +------+ + | Care Bottling Room Worker Name | Role | Phone [...] 2015 | on | Speech Therapy | HEAD START COORDINATOR [address] | collection | | | | Services at [facility] | [address] | | | | | [address] | [place] [address] | | | | | Loop Mailcode: [id number] | [phone] | | | | | Physician's | | | | | | [place], | | | | | | [place] [address] | | | | | | [phone] | | | +--------+ + + + [...]
--- OUTSIDE RECORDS SUMMARY | ~2019-06-05 | XMS | Encounter Summary ---
Demographics + + + | Address | [address] | | | [place] [address] | + + + | Home Phone [...] [place] | | | | | [address] | | + + + + + Care Team Providers + +------+ + | Care Beef Cattle Grazier Name | Role | Phone | + [...] [place], [place] | | | | | [place], | [address] | | | | | [place] [address] | | | | | | [phone] | | | +--------+ + + + [...] [place] | | | | | | [phone] | | | | | | | | +--------+ + + + + | 03/13/ | Office | Cardiology | Sophie Delacruz, | | | 2019 | Visit | | MD Chivo DIAZ | | | | | | [place] | | | | | | [phone] | | | | | | | | +--------+ + + + + documented as of this encounter Visit Diagnoses Not on filedocumented in this encounter"
--- OUTSIDE RECORDS SUMMARY | ~2019-06-05 | XMS | Encounter Summary ---
Demographics + + + | Address | [address] | | | [place] [address] | + + + | Home Phone | | + + + | Preferred Language | Unknown | + + + | Marital Status | | + + + | Mormon Affiliation | Unknown | + + + | Race | Unknown | + + + | Ethnic Group | Unknown | + + + Author + + + | Author | [facility] | | | and [place] | + + + | Organization | [facility] | | [...] [place] | | | | | [address] | | + + + + + Care Team Providers + +------+ + | Care Aircraft Structural Repairer Name | Role | Phone | [...] [place], [place] | | | | | [place], | [address] | | | | | [place] [address] | | | | | | [phone] | | | +--------+ + + + [...] [place] | | | | | | [phone] | | | | | | | | +--------+ + + + + | 03/13/ | Office | Cardiology | Sophie Delacruz, | | | 2019 | Visit | | MD Chivo DIAZ | | | | | | [place] | | | | | | [phone] | | | | | | | | +--------+ + + + + documented as of this encounter Visit Diagnoses Not on filedocumented in this encounter"
--- OUTSIDE RECORDS SUMMARY | ~2019-06-05 | XMS | Encounter Summary ---
Demographics + + + | Address | [address] | | | [place] [address] | + + + | Home Phone | | + + + | Preferred Language | Unknown | + + + | Marital Status | | + + + | Anabaptism Affiliation | NON | + + + | Race | White | + + + | Ethnic Group | Not or | + + + Author + + + | Author | [facility] | + + + | Organization | [facility] | + + + | Address | Unknown | + + + | Phone | Unavailable | + + + Support + + +---------+ + | Name | Relationship | Address | Phone | + + +---------+ + | Kofia Alex | ECON | Unknown | | + + +---------+ + Care Team Providers + +------+ + | Care Topstitcher Zigzag Name | Role | Phone | + +------+ + | Cong Freeman MD | PCP | | + +------+ + Encounter Details +--------+ + + + + | Date | Type | Department | Care Team | Description | +--------+ + + + + | 02/25/ | Document-Sc | Health Information | Unknown . | | | 2016 | anned | Services [phone] | | | | | | [address] | | | | | | Mailcode: [id number] | | | | | | [facility] | | | | | | [place], [place] | | | | | | [address] | | | | | | [phone] | | | +--------+ + + + [...]
--- OUTSIDE RECORDS SUMMARY | ~2019-06-05 | XMS | Encounter Summary ---
Demographics + + + | Address | [address] | | | [place] [address] | + + + | Home Phone | | + + + | Preferred Language | Unknown | + + + | Marital Status | | + + + | Jewish Affiliation | Unknown | + + + | Race | Unknown | + + + | Ethnic Group | Unknown | + + + Author + + + | Author | [facility] | | | and [place] | + + + | Organization | [facility] | | [...] [place] | | | | | [address] | | + + + + + Care Team Providers + +------+ + | Care Voice Network Engineer Name | Role | Phone | [...] | | [place] | | [place] [address] | | | | | [facility] | | Phone: | | | | | Procedures | | [phone] | | | | | NEW PATIENT | | Fax: | | | | | | | [phone] | +--------+--------+ + + + + Encounter Details +--------+ + + + + | Date | Type | Department | Care Team | Description | +--------+ + + + + | 11/05/ | Hospital | [facility] | Art Red, | | | 2015 | Encounter | MED CTR RADIATION | [address] | | | | | ONCOLOGY [address] | [place] | | | | | [place], | [address] | | | | | [place] [address] | | | | | | [phone] | | | +--------+ + + + [...] [place] | | | | | | [address] | | | | | | | | +--------+ + + + + | 03/13/ | Office | Cardiology | Sophie Delacruz, | | | 2019 | Visit | Rosemarie DIAZ | | | | | | [place] | | | | | | [phone] | | | | | | | | +--------+ + + + + documented as of this encounter Visit Diagnoses Not on filedocumented in this encounter"
--- OUTSIDE RECORDS SUMMARY | ~2019-06-05 | XMS | Encounter Summary ---
Demographics + + + | Address | [address] | | | [place] [address] | + + + | Home Phone [...] [place] | | | | | [address] | | + + + + + Care Team Providers + +------+ + | Care Diamond Driller Name | Role | Phone | + [...] Cancer of | Art Holloway DO | Fine Arts Instructor [address] | | | Required | | base of | [address] | [place] | | | | | tongue (HCC) | [address] | [place], [place] | | | | | [address] | [place], | [address] | | | | | (ICD-9-CM) - | [place] [address] | Phone: | | | | | Cancer of | Phone: | [phone] | | | | | base of | [phone] | Fax: | | | | | tongue (HCC) | Fax: | [phone] | | | | | Procedures | [phone] | | | | | | Speech | | | +--------+ + + + + + Encounter Details +--------+ + + + + | Date | Type | Department | Care Team | Description | +--------+ + + + + | 11/27/ | Hospital | [facility] | Ruy Chaparro | Dysphagia (Primary | | 2015 | Encounter | MED CTR SPEECH | MD Jason [address] | Dx) | | | | THERAPY [address] | [address] [place] | | | | | [place], | [place] [address] | | | | | [place] [address] | [phone] | | | | | [phone] | | | | | | | Michelle Vera | | | | | | M, Speech | | | | | | Pathologist [address] | | | | | | [address] [place] | | | | | | [place] [address] | | | | | | [phone] | | | | | | | [...] Speech Pathologist - 11/27/2014 5:[address] [facility] SPEECH THERAPY [address] [place] [address] Speech Therapy Daily Treatment Note Date: 11/27/2014 Patient Information Patient Name: Navi Johnson Date of : 1935 Age: 79 y.o. Encounter Diagnoses Code Name Primary? 787.20 Dysphagia Yes Date of Onset: 08/27/14 Referring Provider: Ruy Chaparro MD Rehab Precautions [facility] BUN PANNER OP EVAL from 10/03/[address] [facility] SPEECH THERAPY Rehab Precautions Precautions Hearing impairment, Vision impairment Rehab Learning Style Office Visit from 10/08/[address] [facility] THERAPY OT OP [facility] BUN PANNER OP E ANTONY from 10/03/[address] [facility] SPEECH THERAPY Learning Style Patient's Optimum Learning Style reading, performance of task performance of task Pain Assessment Pain Scale Used: FLACC Pain Rating During Assessment: 0 Today's Treatment Patient Name: Navi Matias Alex/: 1935/ Start Time: 0940 Stop time: 1000 Duration: 20 minutes Timed Treatment Codes: 0 minutes # of Speech Visits to Date: 4 Visit Summary: Pt seen for session with , BUN PANNER student, and BUN PANNER in training. Pt reported that he is [...] rinses, and is performing oral care x2/day. BUN PANNER pro vided the Pt with a research article on importance of adhereing to swallow strengthening exe rcises during HN CA treatment to maintian swallow ability with the hopes of increasing compl iance. BUN PANNER discussed with network designer how many kcal he should ingest each day, and what types of liquids he can use to take in the many calories. BUN PANNER wo work with Pt and his on swal low strengthening exercises at next visit. Next Visit: Swallow eval of varied textures, diet texture modification and oral motor exerc ise, education BUN PANNER Treatment BUN PANNER Treatment: patient/caregiver education, home program instruction, compensatory [...] [place] | | | | | | [address] | | | | | | | | +--------+ + + + + | 03/13/ | Office | Cardiology | Sophie Delacruz, | | | 2019 | Visit | | MD Chivo DIAZ | | | | | | [place] | | | | | | [address] | | | | | | | | +--------+ + + + + documented as of this encounter Visit Diagnoses + + | Diagnosis | + + | Dysphagia - Primary Dysphagia, unspecified | + + documented in this encounter"
--- OUTSIDE RECORDS SUMMARY | ~2019-06-05 | XMS | Encounter Summary ---
Demographics + + + | Address | [address] | | | [place] [address] | + + + | Home Phone | | + + + | Preferred Language | Unknown | + + + | Marital Status | | + + + | Sabianist Affiliation | Unknown | + + + | Race | Unknown | + + + | Ethnic Group | Unknown | + + + Author + + + | Author | [facility] | | | and [place] | + + + | Organization | [facility] | | | and [...] [place] | | | | | [address] | | + + + + + Care Team Providers + +------+ + | Care Leather Products Supervisor Name | Role | Phone | [...] [address] | | | | | [place], | [address] [place] | | | | | [place] [address] | [place] [address] | | | | | [phone] | [phone] | | | | | | | [...] [place] | | | | | | [address] | | | | | | | | +--------+ + + + + | 03/13/ | Office | Cardiology | Sophie Delacruz, | | | 2019 | Visit | | MD Chivo DIAZ | | | | | | [place] | | | | | | [address] | | | | | | | | +--------+ + + + + documented as of this encounter Visit Diagnoses Not on filedocumented in this encounter"
--- OUTSIDE RECORDS SUMMARY | ~2019-06-05 | XMS | Encounter Summary ---
Demographics + + + | Address | [address] | | | [place] [address] | + + + | Home Phone [...] [place] | | | | | [phone] | | + + + + + Care Team Providers + +------+ + | Care Statistician Theoretical Name | Role | Phone | + +------+ + | Ruy Chaparro MD | PCP | | + +------+ + Encounter Details +--------+ + + + + | Date | Type | Department | Care Team | Description | +--------+ + + + + | 11/22/ | Orders Only | ANTHONY RODRIGUEZ | Art Red DO | Mucositis due to | | 2014 | | [facility] | [address] | radiation therapy | | | | ONCOLOGY [address] | [place], [place] | (Primary Dx) | | | | [place], | [address] | | | | | [place] [address] | | | | | | [phone] | | | +--------+ + + + [...] | 2019 | | | [address] | | | | | | [place] | | | | | | [address] | | | | | | | | +--------+ + + + + | 03/13/ | Office | Cardiology | Sophie Delacruz, | | | 2019 | Visit | | MD [address] | | | | | | [place] | | | | | | [address] | | | | | | | | +--------+ + + + + documented as of this encounter Visit Diagnoses + + | Diagnosis | + + | 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
--- OUTSIDE RECORDS SUMMARY | ~2019-06-05 | XMS | Encounter Summary ---
Demographics + + + | Address | [address] | | | [place] [address] | + + + | Home Phone | | + + + | Preferred Language | Unknown | + + + | Marital Status | | + + + | Protestant Affiliation | NON | + + + [...] Team Providers + +------+ + | Care Liquified Natural Gas Technician Name | Role | Phone | + +------+ + | Cong Freeman MD | PCP | | + +------+ + Reason for Visit + + + | Reason | Comments | + + + | Pre-op evaluation | | + + + Encounter Details +--------+---------+ + + + | Date | Type | Department | Care Team | Description | +--------+---------+ + + + | 08/20/ | Office | Preoperative | Belkis Harvey | Preop examination | | 2015 | Visit | Medicine Clinic at | J, [employer] | (Primary Dx); SCC | | | | [facility] 4th Floor [address] | | (squamous cell | | | | [address] | | carcinoma); CAD | | | | Mailcode: CH4S | | (coronary artery | | | | [facility] | | disease); Type 2 | | | | and Healing, | | diabetes mellitus | | | | Building 1[address]4th Floor | | (HCC); CKD (chronic | | | | [place], [place] | | kidney disease), | | | | [phone] | | stage 3 (moderate); | | | | [phone] | | Other specified | | | | | | pre-operative | | | | | | examination | +--------+---------+ + + + Anesthesia Record + + + + + | Procedure Name | Responsible | Anesthesia Start | Anesthesia Stop Time | | | Anesthesiologist | Time | | + + + + + | [facility] TRANSORAL | Martha Ramirez MD | 08/27/14 [...] | /3 | 8 | | reviewed, PARQ held, anesthetic plan made or approved by [...] | Meds | +------+ + + + No medications | on file. | + + + + + | No agents on file. | + + + + | No blood administrations on file. | + + +--------+ + + + | Type | Details | Placement | Removal | +--------+ + + + | RETIRE | 08/27/14; 08/28/14; 1500; No; | 08/27/14 0000 by | 08/28/14 1500 by | | D - | Temp-charity Cornelius; 16FR | Jason Mast RN | [...] | 03/18/17 (Automatic cleanup per | Jason Mast, RN | Discontinued After | | Incisi [...] | 03/18/17 (Automatic cleanup per | Jason Mast, RN | Discontinued After | | Incisi | RA [id number]--contact admin for | | Discharge | | on | questions.); 1622 (Automatic | | | | | cleanup per RA 3006--contact | | | | | admin for questions.) | | | +--------+ + + + | RETIRE | 08/27/14; 699; 08/29/14; 2128; | 08/27/14 07 by | 08/29/142128 by | | D - | No; #20 g; 20; Right; Hand; | Nicho Do, | Marco Bridges, | | Periph | Topical; Positive; 1 | RN | RN | | eral | | | | | Line | | | | +--------+ + + + | RETIRE | 08/27/14; 0843; 08/29/14; 0448; | 08/27/14 08 by | 08/29/14 0448 by | | D - | No; 18; Left; Hand | Jaycee Reece MD | Marco Bridges, | | [facility] | | | RN | | eral [...] 08/30/14; 0730; | 08/27/14 1200 by | 08/30/14729 by | | D - | No; 10 FR; ALLI; Left; Neck | Luis Miguel Burton RN | Katharine Adkins, | | Drains | | | RN | | | [...] + + + | Blood Pressure | 113/52 | 08/20/2014 10:07 AM | | | | | PDT | | + + + + + | Pulse | 53 | 08/20/2014 10:07 AM | | | | | PDT | | + + + + + | Temperature | 36.4 C (97.5 F) | 08/20/2014 10:07 AM | | | | | PDT | | + + + + + | Respiratory Rate | 14 | 08/20/2014 10:07 AM | | | | | PDT | | + + + + + | Oxygen Saturation | 100% | 08/20/2014 10:07 AM | | | | | PDT | | + + + + + | Inhaled Oxygen | - | - | | | Concentration | | | | + + + + + | Weight | 98 kg (216 lb) | 08/20/2014 10:07 AM | | | | | PDT | | + + + + + | Height | 180.3 cm (5' 11") | 08/20/2014 10:07 AM | neck 44 cm | | | | PDT | | + + + + + | Body Mass Index | 30.13 | 08/20/2014 10:07 AM | | | | | PDT | | + + + + + documented in this encounter Patient Instructions Patient Instructions HarveyBelkis, YESENIA - 08/20/2014 10:21 AM PDT PREOPERATIVE INSTRUCTIONS Empty stomach before surgery On the day BEFORE your surgery, drink plenty of fluids and stay well hydrated NOTHING to eat or drink after midnight the night before surgery. This includes water, coffee, candy, mints, gum. Medications Instructions On the evening before your surgery, take ALL your usual evening medications TAKE the following medications with a sip of water on the morning of surgery: Allopurinol as usual Carvedilol Isosorbide Oxycodone as usual if needed acetaminophen 500 mg oral tablet, Take 1,000 mg by mouth as needed. allopurinol 300 mg oral tablet, Take 150 mg by mouth once daily. aspirin chewable 81 mg oral tablet,chewable, Take 81 mg by mouth once daily. carvedilol 12.5 mg oral tablet, Take 12.5 mg by mouth two times daily. Administer with food . clopidogrel 75 mg oral tablet, Take 75 mg by mouth once daily. CYANOCOBALAMIN, VITAMIN B-12, (VITAMIN B-12 INJ), by injection route every thirty days. FOLIC ACID/MULTIVITS-MIN/LUT (CENTRUM SILVER ORAL), Take by mouth. hydrochlorothiazide 25 mg oral tablet, Take 25 mg by mouth once daily. isosorbide mononitrate CR 30 mg oral tablet extended release 24 hr, Take 30 mg by mouth onc e daily. losartan 50 mg oral tablet, Take 50 mg by mouth once daily. nitroglycerin 0.4 mg sublingual tablet, sublingual, Place 0.4 mg under tongue every five mi nutes as needed for chest pain. Place under tongue and allow to dissolve. Administer every 5 minutes, max of 3 doses in 15 minutes. ondansetron 4 mg oral tablet, Take 4 mg by mouth every eight hours as needed. oxyCODONE, immediate release, 5 mg oral tablet, Take by mouth every six hours as needed. simvastatin 10 mg oral tablet, Take 10 mg by mouth once daily in the evening. tamsulosin 0.4 mg oral capsule,extended release 24hr, Take 0.4 mg by mouth once daily. Unless otherwise directed by your surgeon, do not take any Aspirin, vitamin E or non-st eroidal anti-inflammatory (NSAIDs i.e. Advil, Aleve, Ibuprofen) or herbal supplements 7-14 d ays prior to your surgery. These drugs may interfere with normal blood clotting and may caus e excessive bleeding and bruising during or after the surgery. If you are taking Coumadin (warfarin), Plavix or any other blood thinners please let you r surgical team know as medication changes may be necessary. If you need a pain medication for general purposes, use Tylenol as directed. OK to take it even on the morning of surgery, if needed. If you are in doubt about any medications that you are taking, please contact our office . Skin preparation to help avoid surgical site infections HIBICLENS GUIDE TO GENERAL SKIN CLEANSING AT HOME BEFORE SURGERY Before you bathe or shower: Read the instructions given to you by your healthcare practitioner, and begin your genera l skin cleansing protocol as directed. Carefully read all directions on the product label. Hibiclens is not to be used on the head or face, keep out of the eyes, ears and mouth. Hibiclens is not to be used in the genital area. Hibiclens should not be used if you are allergic to chlorhexidine gluconate or any other ingredients in this preparation. *See Hibiclens label for full product information and precautions. When you bathe or shower the night before your surgery: If you plan to wash your hair, do so with your regular shampoo. Then rinse hair and body thoroughly to remove any shampoo residue. Wash your face with your regular soap or water only. Thoroughly rinse your body with warm water from neck down. Use Hibiclens as you would any other liquid soap. Please do not put the Hibiclens on a wa sh cloth, apply directly to the skin and wash gently. Apply the minimum amount of Hibiclens necessary to cover the skin. Leave the Hibiclens on your skin for 1 minute, then rinse off. Rinse thoroughly with warm water. Do not use your regular soap after applying and rinsing Hibiclens. When using Hibiclens for a second day in a row (morning of surgery, as soon as you wake up) : Shower/bathe again using Hibiclens in the same method as described above. Do not apply any lotions, deodorants, powders or perfumes to the body areas that have been cleaned with Hibiclens. Other Important Guidelines Do not shave the surgical area Do not smoke, drink alcohol or use recreational drugs for 24 hours before your surgery Watch for any change in your health condition. Let your surgeon know right away if you do not feel well. Do not wear makeup, perfume, lotions, deodorant, powder or hairspray. Do not wear any jewelry to the hospital. Wear loose, comfortable clothing. Leave all your valuables at home. Allow enough travel time so you re not late for your check in for surgery. Take a bath or shower and remember to shampoo your hair using your usual hair product bef ore your arrival at the hospital. Please remember to brush your teeth the night before and the morning of your procedure. Preventing post op complications while you are in the hospital Use an incentive spirometer or peep breathe to keep your lungs working properly an d to help prevent respiratory complications. It helps you take long, deep breaths. Use it at least once every hour while you are awake. Leg and feet exercises will maintain good circulation and help prevent blood clots in yo ur legs. Sometimes your doctor will order air compression stockings. Compressed air helps the circulation in your legs. Walking and moving will help stimulate normal circulation and deep breathing. After you r surgery, your nurse may ask you to sit, stand or walk. Surgery check-in location: Admitting - [facility], ninth floor [facility] [employer] Surgery Check in Time: The Preoperative Medicine Clinic is not in the position to give you accurate information regarding surgical check in time. We refer you back to your surgical office regarding this important information. Going Home Your surgical team will decide when you are medically ready to go home. If you stayed in the hospital after surgery, please arrange for your ride to come for yo u around 9AM on the day your doctor says you can go home. If you have questions or concerns after you go home, call your doctor s office. If it is after office hours, call the [facility] electric crane operator at [phone] and ask them to page him or h er. documented in this encounter Progress Notes Nora Ma MA - 08/20/2014 11:04 AM PDT Venipuncture performed in clinic, blood sample obtained from Left antecubital site Hemoglob in A1C POCT performed during clinic visit. Blood sample obtained from venipuncture performed to obtain other lab tests. Belkis Bee FNP - 08/20/2014 10:15 AM PDT . PREOPERATIVE CONSULT NOTE Author: YESENIA UPTON Referring Physician: Dr Abdullahi Primary Care Provider: Ruy Chaparro MD Reason for Consult: Preoperative evaluation and risk assessment Proposed Procedure/Date: TORS RESECTION OF LEFT BASE OF TONGUE CANCER & LEFT SELECTIVE NECK DISSECTION;DAVINICI ASSISTED ROBOT CASE, 08/27/14 HISTORY OF PRESENT ILLNESS: Navi Johnson is a 79 y.o. male here for preoperative evaluatio n for above procedure. 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 Symptoms related to the diagnosis:left facial pain starting last fall, thought to be dental pain, did not resolve over time. Imaging followed by biopsy confirming diagnosis. He is not currently taking pain medication. 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 Perioperative cardiac risks: Prior CAD, Functional Capacity: Moderate (4-10 mets) Prior complications of anesthesia: none ROS: Pulmonary: Within Defined Limits except as noted below no cough no shortness of breath no w heezing Pt. Has no asthma No dx of sleep apnea Risks factors for sleep apnea: Pt. being treated for high blood pressure Age>50, Male gender and Neck circumference> 40 cm pt. at high risk of DESIREE Cardiovascular: Last dose of plavix 08/17/13. Continuing small dose aspirin. recent remodeli ng of house. Denies CP, SOB, Palpitations. Within Defined Limits except as noted below Funct ional Capacity: Moderate - dyspnea on exertion, palpitations, chest pressure and syncope CAD (LA 1 yr ago, pt report s mild, medically managed.) Cad Sx: past LA no CHF Vascular: VASCULAR SYMPTOMS hyperlipidemia no pacemaker GI/Hepatic: Hx Elham fundoplication for hiatal hernia. 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 has: no active bleeding no Bleedi ng diathesis / thrombotic bleeding Previous Transfusions: no transfusion hx Hx: no other hem e, Malignancy: cancer, Location: Oropharyngeal, Metastasis: Skin: Within Defined Limits except as noted below No open wounds or sores No hx MRSA/VRE/Ac tive skin infection Current medications reviewed / updated Current Medication List Name Sig ACETAMINOPHEN 500 MG TABLET Take 1,000 mg by mouth as needed. ALLOPURINOL 300 MG TABLET Take 150 mg by mouth once daily. ASPIRIN 81 MG CHEWABLE TABLET Take 81 mg by mouth once daily. CARVEDILOL 12.5 MG TABLET Take 12.5 mg by mouth two times daily. Administer with food. CLOPIDOGREL 75 MG TABLET Take 75 mg by mouth once daily. VITAMIN B-12 INJ by injection route every thirty days. CENTRUM SILVER ORAL Take by mouth. HYDROCHLOROTHIAZIDE 25 MG TABLET Take 25 mg by mouth once daily. ISOSORBIDE MONONITRATE ER 30 MG TABLET,EXTENDED RELEASE 24 HR Take 30 mg by mouth once chet y. LOSARTAN 50 MG TABLET Take 50 mg by mouth once daily. NITROGLYCERIN 0.[address] 0.4 mg under tongue every five minutes as need ed for chest pain. Place under tongue and allow to dissolve. Administer every 5 minutes, ma x of 3 doses in 15 minutes. ONDANSETRON HCL 4 MG TABLET Take 4 mg by mouth every eight hours as needed. OXYCODONE 5 MG TABLET Take by mouth every six hours as needed. SIMVASTATIN 10 MG TABLET Take 10 mg by mouth once daily in the evening. TAMSULOSIN ER 0.4 MG CAPSULE,EXTENDED RELEASE 24 HR Take 0.4 mg by mouth once daily. Allergies reviewed / updated No Known Allergies Past medical history reviewed / updated Past Medical History Diagnosis Date CAD (coronary artery disease) CKD (chronic kidney disease) stage 3, GFR 30-59 ml/min DMII (diabetes mellitus, type 2) Past surgery reviewed and updated Past Surgical History Procedure Date Panendoscopy Hiatal hernia repair Family history reviewed / updated No known anesthesia problems or bleeding disorders Family History Problem Relation Cancer Daughter Breast Cancer Daughter Breast Social history reviewed / updated History Substance Use Topics Smoking status: Never Smoker Smokeless tobacco: Not on file Alcohol Use: 1.0 oz/week 2 drink(s) per week PHYSICAL EXAM: Last Vitals: BP 113/52 | Pulse 53 | Temp (Src) 36.4 C (97.5 F) (Oral) | RR 14 | Ht 1.80 3 m (5' 11") | Wt 97.977 kg (216 lb) | SpO2 100% | BMI 30.14 kg/(m^2) Body mass index is 30. 14 kg/(m^2). General: Patients general appearance: Healthy, Alert, No distress, Cooperative and Age appr opriate Head & Neck/Airway: NC/AT; PERRL; EOMI; nl appearing ears and nose. Neck ROM: limited Neck Circumference: 44 cm. TM Distance:> 6cm Dentition: dental implants, bridges or caps present Do: No Mallampati: IV Mouth Opening: > = 3 cm C-Spine: limited extension Neck Anatomy: Normal Jaw Protrusion: Normal, lower incisors can protrude past upper incisors Lung Exam: No respiratory distress. Normal breathing pattern. breath sounds normal Cardiac: No murmurs, gallops or rubs. Rhythm: regular Rate: normal Abdominal: General Findings: no abdominal tenderness and Nondistended Bowel Sounds: bowel s ounds are normal Musculoskeletal: Findings: tone normal and normal strength Neuro/Psych: No focal neuro deficits; Alert and appropriate; nl affect. alert Findings: Mot or 5/5 strength globally with normal tone, Soft & sharp sensation normal, No tremor, Alert, oriented to person, place, time, Normal affect and Normal gait and station Integument: No open rashes or lesions noted. - lesion, rash and open wounds Color: pink Texture: Skin texture - normal Turgor: turgor normal LABS & DATA REVIEWED/ORDERED CBC, T&S, A1c drawn Lab Results Component Value Date WBC 7.79 08/20/2014 HB 12.2 08/20/2014 HCT 37.5 08/20/2014 PLT 210 08/20/2014 MCV 95.9 08/20/2014 RDW 50.6 08/20/2014 Lab Results Component Value Date A1C 6.0* 08/20/2014 Lab Results Component Value Date ABO A 08/20/2014 RH Positive 08/20/2014 Lab Results Component Value Date A1C 6.0* 08/20/2014 EKG: Personally reviewed. sinus bradycardia VR= 48, t wave inversion lead III and flattene d lead aVF Nuclear Med Stress Test, 08/20/13: ECHO, 08/21/13 MEDICAL DECISION MAKIN ACC/AHA Perioperative Cardiac Risk Stratification (assumes non-emergent, non-cardiac p rocedure) Are active cardiac conditions present? No Calculate the combined surgical and patient-specific risk: using the Dwyer perioperative ca rdiac risk calculator, the risk of major adverse cardiac event (MACE) is: less than 1%. No further risk stratification for coronary disease is indicated. (Estimated risk of perioperat vanessa myocardial infarction or cardiac arrest: 0.76 %.) ASSESSMENT and RECOMMENDATIONS: Surgical/anesthesia risk assessment: Navi Johnson is a 79 y.o. male with diagnosis of tongue cancer, scheduled for TORS RESECTION OF LEFT BASE OF TONGUE CANCER & LEFT SELECTIVE N CHERELLE DISSECTION;DAVINICI ASSISTED ROBOT CASE, . According to ACC/AHA guidelines, the patient does not meet criteria for additional testing. Medication management recommendations: The patient was advised to continue all usual med ications except as noted in Patient Instructions (After Visit Summary given to pt) Pre-procedure antibiotic recommendation: Cefazolin 2 gm IV (no PCN allergy; no hx MRSA) CAD, stable, asymptomatic with good functional capacity. Optimized on therapy, beta bloc ker, statin and aspirin. He has stopped plavix preop and is continuing aspirin. CKD, stage 3, caution with nephrotoxic agents with attention to adequate hydration. Type 2 diabetes, diet controlled. Stable, A1c 6.0. Anemia, mild, T&S drawn. The patient is stable / optimized for surgery. Additional testing/optimization is not nee ded. Thank you for the opportunity to contribute to this patient's care. YESENIA UPTON [facility] 4TH FLOOR [address] [facility] [place] [address] I advised the patient regarding NPO requirements, hydration before surgery, showering, ge neral body hygiene. All pre-procedure instructions given to the patient (after-visit summar y). All of patient's questions were addressed. The patient verbalized understanding of the instructions given. documented in th is encounter Plan of Treatment + + +--------+ + + | Name | Type | Priori | Associated Diagnoses | Order Schedule | | | | ty | | | + + +--------+ + + | COMMUNICATION TO [facility] | Procedures | Routin | Preop examination | Ordered: 08/20/2014 | | LAB DRAW | | e | | | + + +--------+ + + | COMMUNICATION TO [facility] | Procedures | Routin | CAD (coronary | Ordered: 08/20/2014 | | LAB DRAW | | e | artery disease) CKD | | | | | | (chronic kidney | | | | | | disease), stage 3 | | | | | | (moderate) Preop | | | | | | examination | | + + +--------+ + + documented as of this encounter Procedures + +--------+ + + + | Procedure Name | Priori | Date/Time | Associated Diagnosis | Comments | | | ty | | | | + +--------+ + + + | CO COLLECTION VENOUS | Routin | 08/20/2014 | Other specified | | | BLOOD,VENIPUNCTURE | e | 11:04 AM | pre-operative | | | | | PDT | examination | | + +--------+ + + + | HEMOGLOBIN A1C, POC | Routin | 08/20/2014 | CAD (coronary | Results for this | | | e | 10:58 AM | artery disease) | procedure are in the | | | | PDT | Type 2 diabetes | results section. | | | | | mellitus (HCC) | | | | | | Preop examination | | + +--------+ + + + | CBC (HEMOGRAM) ONLY | Routin | 08/20/2014 | CAD (coronary | Results for this | | | e | 10:56 AM | artery disease) CKD | procedure are in the | | | | PDT | (chronic kidney | results section. | | | | | disease), stage 3 | | | | | | (moderate) Preop | | | | | | examination | | + +--------+ + + + | CBC ONLY | Routin | 08/20/2014 | CAD (coronary | Results for this | | | e | 10:56 AM | artery disease) CKD | procedure are in the | | | | PDT | (chronic kidney | results section. | | | | | disease), stage 3 | | | | | | (moderate) Preop | | | | | | examination | | + +--------+ + + + | ANTIBODY SCREEN | Routin | 08/20/2014 | CAD (coronary | Results for this | | | e | 10:56 AM | artery disease) | procedure are in the | | | | PDT | Preop examination | results section. | + +--------+ + + + | TYPE AND SCREEN | Routin | 08/20/2014 | CAD (coronary | Results for this | | | e | 10:56 AM | artery disease) | procedure are in the | | | | PDT | Preop examination | results section. | + +--------+ + + + | ABO & RH TYPE | Routin | 08/20/2014 | CAD (coronary | Results for this | | | e | 10:56 AM | artery disease) | procedure are in the | | | | PDT | Preop examination | results section. | + +--------+ + + + | 12 LEAD ECG | Routin | 08/20/2014 | Preop examination | Results for this | | | e | 9:13 AM | | procedure are in the | | | | PDT | | results section. | + +--------+ + + + | OUTSIDE CARDIOLOGY | | 08/20/2014 | | Results for this | | | | 12:00 AM | | procedure are in the | | | | PDT | | results section. | + +--------+ + + + | OUTSIDE CARDIOLOGY | | 08/20/2014 | | Results for this | | | | 12:00 AM | | procedure are in the | | | | PDT | | results section. | + +--------+ + + + documented in this encounter Results HEMOGLOBIN A1C,POC (08/20/2014 10:58 AM PDT) + +---------+ + + + | Component | Value | Ref Range | Performed | Pathologist | | | | | At | Signature | + +---------+ + + + | HEMOGLOBIN | 6.0 (A) | 4.0 - 5.7 % | [facility] | | | A1C,POC | | | POINT OF | | | | | | CARE TESTS | | + +---------+ + + + + + | Specimen | + + | Blood | + + + + + + + | Performing | Address | City/State/Zipcode | Phone Number | | Organization | | | | + + + + + | [facility]INT | [address] | [place] [address] | | | OF CARE TESTS | | | | + + + + + CBC (HEMOGRAM) ONLY (08/20/2014 10:56 AM PDT) + + + + + + | Component | Value | Ref Range | Performed | Pathologist | | | | | At | Signature | + + + + + + | WHITE CELL | 7.79 | 4.40 - 11.00 | [facility] | | | COUNT | | K/cu mm | LABORATORY | | | | | | SERVICES, | | | | | | CORE | | + + + + + + | RED CELL | 3.91 (L) | 4.50 - 6.00 | [facility] | | | COUNT | | M/cu mm | LABORATORY | | | | | | SERVICES, | | | | | | CORE | | + + + + + + | HEMOGLOBIN | 12.2 (L) | 13.5 - 17.5 | [facility] | | | | | g/dL | LABORATORY | | | | | | SERVICES, | | | | | | CORE | | + + + + + + | HEMATOCRIT | 37.5 (L) | 41.0 - 53.0 % | [facility] | | | | | | LABORATORY | | | | | | SERVICES, | | | | | | CORE | | + + + + + + | MCV | 95.9 | 80.0 - 96.0 fL | [facility] [...] + + + | RDW SD | 50.6 (H) | 35.1 - 46.3 fL | [facility] | | | | | | LABORATORY | | | | | | SERVICES, | | | | | | CORE | | + + + + + + | PLATELET | 210 | 150 - 400 K/cu | [facility] | | | COUNT | | mm | LABORATORY | | | | | | SERVICES, | | | | | | CORE | | + + + + + + | MPV | 10.8 | 9.7 - 12.3 fL | [facility] [...] + | [facility] | [address] | [place] [address] | | | SERVICES, CORE | [address] | | | + + + + + ANTIBODY SCREEN (08/20/2014 10:56 AM PDT) + + + + + [...] [facility] | [address] | [place] [address] | | | SERVICES, | [address] | | | | TRANSFUSION MEDICINE | | | | + + + + + ABO & RH TYPE (08/20/2014 10:56 AM PDT) + + + + + [...] [facility] | [address] | [place] [address] | | | SERVICES, | [address] | | | | TRANSFUSION MEDICINE | | | | + + + + + 12 LEAD ECG (08/20/2014 9:13 AM PDT) + + + + + + | Component | Value | Ref Range | Performed | Pathologist | | | | | At | Signature | + + + + + + | VENTRICULAR | 48 | bpm | [facility] | | | RATE | | | OF | | | | | | CARDIOLOGY | | + + + + + + | ATRIAL RATE | 48 | bpm | [facility] | | | | | | OF | | | | | | CARDIOLOGY | | + + + + + + | P-R | 172 | ms | [facility] | | | INTERVAL | | | OF | | | | | | CARDIOLOGY | | + + + + + + | P AXIS | 36 | deg | [facility] | | | | | | OF | | | | | | CARDIOLOGY | | + + + + + + | QRS | 86 | ms | [facility] | | | DURATION | | | OF | | | | | | CARDIOLOGY | | + + + + + + | QT | 440 | ms | [facility] | | | | | | OF | | | | | | CARDIOLOGY | | + + + + + + | QTC-BAZETT | 394 | ms | [facility] | | | | | | OF | | | | | | CARDIOLOGY | | + + + + + + | R AXIS | -12 | deg | [facility] | | | | | | OF | | | | | | CARDIOLOGY | | + + + + + + | T AXIS | -5 | deg | [facility] | | | | | | OF | | | | | | CARDIOLOGY | | + + + + + + | ECG | SINUS | | [facility] | | | IMPRESSION | BRADYCARDIABORDERLINE | | OF | | | | LEFT AXIS DEVIATIONT | | CARDIOLOGY | | | | Wave abnormalities in | | | | | | inferior leads- | | | | | | BORDERLINE ECG | | | | | | -Electronically signed | | | | | | by: ELIEZER MARIE 08-20-2014 | | | | | | 15:49:33 | | | | + + + + + + + + | Specimen | + + | | + + + + + | Narrative | Performed At | + + + | | [facility] | | | CARDIOLOGY | + + + + + | Procedure Note | + + | Manuel Booth - 08/20/2014 4:06 PM PDT | + + + + + + + | Performing | Address | City/State/Zipcode | Phone Number | | Organization | | | | + + + + + | [facility] | [address] | [place], [place] | | | CARDIOLOGY | [address] | [address] | | + + + + + OUTSIDE CARDIOLOGY (08/20/2014 12:00 AM PDT) + + + | Narrative | Performed At | + + + | | | | | | + + + + + | Procedure Note | + + | Manuel Booth - 08/21/2014 1:29 PM PDT | + + OUTSIDE CARDIOLOGY (08/20/2014 12:00 AM PDT) + + + | Narrative | Performed At | + + + | | | | | | + + + + + | Procedure Note | + + | Manuel Booth - 08/21/2014 1:28 PM PDT | + + documented in this encounter Visit Diagnoses + + | Diagnosis | + + | Preop examination - Primary Preoperative examination, unspecified | + + | SCC (squamous cell carcinoma) Squamous cell carcinoma of skin, site unspecified | + + | CAD (coronary artery disease) Coronary atherosclerosis of unspecified type of vessel, | | [place] or graft | + + | Type 2 diabetes mellitus (HCC) Type II or unspecified type diabetes mellitus without | | mention of complication, not stated as uncontrolled | + + | CKD (chronic kidney disease), stage 3 (moderate) | + + | Other specified pre-operative examination | + + documented in this encounter
--- OUTSIDE RECORDS SUMMARY | ~2019-06-05 | XMS | Encounter Summary ---
Demographics + + + | Address | [address] | | | [place] [address] | + + + | Home Phone [...] [place] | | | | | [address] | | + + + + + Care Team Providers + +------+ + | Care Stockroom Helper Name | Role | Phone | + [...] [place], [place] | | | | | [place], | [address] | | | | | [place] [address] | | | | | | [phone] | | | +--------+ + + + [...] [place] | | | | | | [phone] | | | | | | | | +--------+ + + + + | 03/13/ | Office | Cardiology | Sophie Delacruz, | | | 2019 | Visit | | MD Chivo DIAZ | | | | | | [place] | | | | | | [phone] | | | | | | | | +--------+ + + + + documented as of this encounter Visit Diagnoses Not on filedocumented in this encounter"
--- OUTSIDE RECORDS SUMMARY | ~2019-06-05 | XMS | Encounter Summary ---
Demographics + + + | Address | [address] | | | [place] [address] | + + + | Home Phone | | + + + | Preferred Language | Unknown | + + + | Marital Status | | + + + | Catholic Affiliation | Unknown | + + + | Race | Unknown | + + + | Ethnic Group | Unknown | + + + Author + + + | Author | [facility] | | | and [place] | + + + | Organization | [facility] | | [...] [place] | | | | | [address] | | + + + + + Care Team Providers + +------+ + | Care [place] Police Lieutenant Name | Role | Phone | + [...] neoplasm of | [address] | | | | | oropharynx, | [address] | [place], | | | | | unspecified | [place], | [place] [address] | | | | | site | [place] [address] | Phone: | | | | | Procedures | Phone: | [phone] | | | | | SD IV | [phone] | Fax: | | | | | INFUSION, | Fax: | [phone] | | | | | HYDRATION, | [phone] | | | | | | 31-60 MIN | | | | | | | SD IV | | | | | | | INFUSION, | | | | | | | HYDRATION, | | | | | | | 31-60 MIN | | | +--------+--------+ + + + + Encounter Details +--------+ + + + + | Date | Type | Department | Care Team | Description | +--------+ + + + + | 11/23/ | Hospital | [facility] | Art Red DO | Dysphagia; Carcinoma | | 2015 | Encounter | MED CTR CHEMO | [address] | of oropharynx (HCC) | | | | INFUSION [address] | [place], [place] | | | | | [place], | [address] | | | | | [place] [address] | | | | | | [phone] | | | +--------+ + + + [...] [place] | | | | | | [address] | | | | | | | | +--------+ + + + + | 03/13/ | Office | Cardiology | Sophie Delacruz, | | | 2019 | Visit | | MD Chivo DIAZ | | | | | | [place] | | | | | | [address] | | | | | | | [...]
--- OUTSIDE RECORDS SUMMARY | ~2019-06-05 | XMS | Encounter Summary ---
Demographics + + + | Address | [address] | | | [place] [address] | + + + | Home Phone | | + + + | Preferred Language | Unknown | + + + | Marital Status | | + + + | Judaism Affiliation | Unknown | + + + | Race | Unknown | + + + | Ethnic Group | Unknown | + + + Author + + + | Author | [facility] | | | and [place] | + + + | Organization | [facility] | | | [...] [place] | | | | | [address] | | + + + + + Care Team Providers + +------+ + | Care Panman Name | Role | Phone | + [...] Carcinoma | Art Holloway DO | [address] | | | | | of | [address] | [place], | | | | | oropharynx | [address] | [place] [address] | | | | | (HCC) | [place], | Phone: | | | | | Procedures | [place] [address] | [phone] | | | | | CT Soft | Phone: | Fax: | | | | | Tissue Neck | [phone] | [phone] | | | | | w Contrast | Fax: | | | | | | | [phone] | | +--------+--------+ + + + + [...] | | tongue (HCC) | | [place] [address] | | | | | Procedures | | Phone: | | | | | [place] OFFICE | | [phone] | | | | | OUTPATIENT | | Fax: | | | | | VISIT 25 | | [phone] | | | | | MINUTES | | | +--------+--------+ + + + + Encounter Details +--------+ + + + + | Date | Type | Department | Care Team | Description | +--------+ + + + + | 02/16/ | Hospital | [facility] | Art Red DO | Carcinoma of | | 2016 | Encounter | MED CTR RADIATION | [address] | oropharynx (HCC) | | | | ONCOLOGY [address] | [place] | (Primary Dx) | | | | [place], | [address] | | | | | [place] [address] | | | | | | [phone] | | | +--------+ + + + [...] DO - 02/17/2016 12:00 AM PDTPATIENT: Navi Johnson : 1935 DOS: 02/17/2016 Radiation Oncology Follow-up Clinic Note ICD/Diagnosis: 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 Danny Abdullahi M.D. Spenser Randall M.D. Ruy Chaparro M.D. [facility] Chief Complaint/History of Present Illness: Base of [...] 27, [address] Danny Abdullahi at [facility]. Final patholog y confirmed a 2.4 [...] which is unchanged. He has returned to [facility] ENT service at the [facility] in [place] most recently on October 03, 2015 with where a flexible nasal laryngoscopy procedure was performed. No residual disease was seen on [facility] exam and no mucosal abnormalities were seen. He will return on a six-month basis to [facility] alternating with my clinic every 3 months. Currently, he has no specifi c concerns or complaints after his last evaluation at the [facility] Review of Systems: ROS ConstitutionalNormal - [...] purpur a / ecchymosis. Procedure (flexible laryngoscopy-CPT 06738): Indications: Inadequate visualization with indirect approach The [...] n on August 27, 2014 while at [facility]. The primary lesion was 2.4 cm [...] to alternate appointments between ENT at the [facility] in [place] in our clinic on a three-month basis moving forward. He was encouraged to call our clinic wi th any further questions or concerns. Thank you for allowing me to participate in the care of Navi Johnson. If you nikia karma have any questions regarding this evaluation, please do not hesitate to contact me. Art Red D.O., ALIER Radiation Oncologist Department of Radiation Oncology [facility] This note was transcribed using Movinary speech recognition software. As a result, there ma y be unintended for medical and/or spelling errors. Every attempt is made to correct dicta tion. If there are any questions or errors please contact our office. Page 1 of 3 CSN: [id number] signed by Art Red DO at 02/20/2016 12:55 PM Naomi bautista in this encounter Plan of Treatment +--------+ + + + + | Date | Type | Specialty | Care Team | Description | +--------+ + + + + | 12/10/ | Appointment | Radiation Oncology | Art eRd DO | | | 2019 | | | [address] | | | | | | [place] | | | | | | [id number] | | | | | | | | +--------+ + + + + | 03/13/ | Office | Cardiology | Sophie Delacruz, | | | 2019 | Visit | | MD Chivo DIAZ | | | | | | [place] | | | | | | [phone] | | | | | | | [...]
--- OUTSIDE RECORDS SUMMARY | ~2019-06-05 | XMS | Encounter Summary ---
Demographics + + + | Address | [address] | | | [place] [address] | + + + | Home Phone | | + + + | Preferred Language | Unknown | + + + | Marital Status | | + + + | Evangelical Affiliation | Unknown | + + + | Race | Unknown | + + + | Ethnic Group | Unknown | + + + Author + + + | Author | [facility] | | | and [place] | + + + | Organization | [facility] | | | and [...] [place] | | | | | [address] | | + + + + + Care Team Providers + +------+ + | Care Marketing Strategy Analyst Name | Role | Phone | + [...] | | | | | | [place] [address] | [place], [place] | | | | | | Phone: | [phone] Phone: | | | | | | [phone] | [phone] | | | | | | Fax: | Fax: | | | | | | [phone] | [phone] | +--------+ + + + + + Encounter Details +--------+ + + + + | Date | Type | Department | Care Team | Description | +--------+ + + + + | 10/03/ | Hospital | [facility] | Spenser Valle | Carcinoma of | | 2015 | Encounter | MED CTR MEDICAL | MD Jason [address] | oropharynx (HCC) | | | | ONCOLOGY CLINIC [address] | [place] | (Primary Dx) | | | | [place] | [place] [address] | | | | | [place] [address] | [phone] | | | | | [phone] | | | +--------+ + + + [...] + + + | Blood Pressure | 186/76 | 10/03/2014 2:59 PM | | | | | PDT | | + + + + + | Pulse | 52 | 10/03/2014 2:59 PM | | | | | PDT | | + + + + + | Temperature | 35.6 C (96.1 F) | 10/03/2014 2:59 PM | | | | | PDT | | + + + + + | Respiratory Rate | 18 | 10/03/2014 2:59 PM | | | | | PDT | | + + + + + | Oxygen Saturation | 99% | 10/03/2014 2:59 PM | | | | | PDT | | + + + + + | Inhaled Oxygen | - | - | | | Concentration | | | | + + + + + | Weight | 93.9 kg (207 lb 0.2 | 10/03/2014 2:59 PM | | | | oz) | PDT | | + + + + + | Height | 183.5 cm (6' 0.24") | 10/03/2014 2:59 PM | | | | | PDT | | + + + + + | Body Mass Index | 27.89 | 10/03/2014 2:59 PM | | | | | PDT [...] documented as of this encounter Progress Notes Elise Gentile CMA - 10/03/2014 3:11 PM PDTREVIEW OF SYSTEMS Constitutional: Denies fatigue. Denies high fevers, shaking chills, anorexia, nausea, vomit ing, weight loss, or night sweats. Appetite without changes. Pt states losing weight of 15l bs after his operation. Ear, Nose, Mouth, Throat: Pt reports odynophagia. Deneis dysphagia, or tinnitus. Cardiovascular: Denies shortness of breath, dyspnea on exertion, chest pain, palpitations o r orthopnea. Respiratory: Denies cough, hemoptysis, or sputum production. Gastrointestinal: Denies abdominal pain, constipation, diarrhea, melena, or bright red bloo d per rectum. Genitourinary: Denies hematuria or dysuria. Musculoskeletal: Denies joint pain or tenderness. Neurologic: Denies headache, visual changes, or numbness/tingling of the extremities. Endocrine: Denies peripheral edema or heat/cold intolerance. Hematologic: Denies spontaneous bruising or bleeding. Integumentary: Denies rash, wounds or other skin concerns. Pain: Pt is having pain on the left side of head and radiates to jaw line, pt reports the p ain at a 8 with out pain medication and with he rates the pain at a 3 this is on a pain scal e from 0-10. Note: Pt is being referred here by Dr. Red who consulted with him on 09/26/14. ( Cancer l b ase of tongue mass). Pt has been seen both at [facility] and [facility], most recently [facility]. CT of chest 07/27/14, partial; pharyngectomy Done by Dr. Abdullahi 08/27/14, at [facility]. 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 My chart: documented in this encounter Plan of Treatment [...] [place] | | | | | | [address] | | | | | | | | +--------+ + + + + | 03/13/ | Office | Cardiology | Sophie Delacruz, | | | 2019 | Visit | | MD Chivo DIAZ | | | | | | [place] | | | | | | [phone] | | | | | | | | +--------+ + + + + documented as of this encounter Visit Diagnoses + + | Diagnosis | + + | Carcinoma of oropharynx (HCC) - Primary Malignant neoplasm of oropharynx, unspecified | | site | + + documented in this encounter
--- OUTSIDE RECORDS SUMMARY | ~2019-06-05 | XMS | Encounter Summary ---
Demographics + + + | Address | [address] | | | [place] [address] | + + + | Home Phone | | + + + | Preferred Language | Unknown | + + + | Marital Status | | + + + | Christianity Affiliation | Unknown | + + + | Race | Unknown | + + + | Ethnic Group | Unknown | + + + Author + + + | Author | [facility] | | | and [place] | + + + | Organization | [facility] | | | and [...] [place] | | | | | [address] | | + + + + + Care Team Providers + +------+ + | Care Rouge Presser Name | Role | Phone | [...] + + + + | 12/13/ | Telephone | ANTHONY RODRIGUEZ | Faby, | Other | | 2014 | | MED [facility] | Jason Holloway MD [address] | | | | | ONCOLOGY CLINIC [address] [place] | | | | | [place] | [place] [address] | | | | | [place] [address] | [phone] | | | | | [phone] | | | +--------+ + + + [...] [place] | | | | | | [address] | | | | | | | | +--------+ + + + + | 03/13/ | Office | Cardiology | Sophie Delacruz, | | | 2020 | Visit | | MD Chivo DIAZ | | | | | | [place] | | | | | | [address] | | | | | | | | +--------+ + + + + documented as of this encounter Visit Diagnoses Not on filedocumented in this encounter"
--- OUTSIDE RECORDS SUMMARY | ~2019-06-05 | XMS | Encounter Summary ---
Demographics + + + | Address | [address] | | | [place] [address] | + + + | Home Phone [...] + | Author | [facility] | | | and [place] | + + + | Organization | [facility] | | | and [...] [place] | | | | | [address] | | + + + + + Care Team Providers + +------+ + | Care Glove Cleaner Name | Role | Phone | + [...] | | [place] | | [place] [address] | | | | | [facility] | | Phone: | | | | | Procedures | | [phone] | | | | | NEW PATIENT | | Fax: | | | | | | | [phone] | +--------+--------+ + + + + Encounter Details +--------+ + + + + | Date | Type | Department | Care Team | Description | +--------+ + + + + | 03/19/ | Hospital | [facility] | Art Red DO | Carcinoma of base of | | 2015 | Encounter | MED CTR RADIATION | [address] | tongue (HCC) | | | | ONCOLOGY [address] | [place] | (Primary Dx) | | | | [place], | [address] | | | | | [place] [address] | | | | | | [phone] | | | +--------+ + + + [...] patch onto | 10 | 0 | 12/14/19 | | | (DURAGESIC) 25 | the skin every 72 | patch | | 15 | 6 | | mcg/hr | hours for 10 doses. 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 Spenser Randall M.D. [facility] Chief Complaint/History of Present Illness: Base of tongue cancer I had the pleasure seeing Navi Johnson today in clinic. 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 Hhe underwent transora l robotic surgery with left partial glossectomy and pharyngectomy with selective neck disse ction levels 2 through 4 on August 27, [address] Danny Abdullahi at [facility]. Final patholo gy confirmed a 2.4 cm moderately differentiated nonkeratinizing squamous cell carcinoma praful t was positive for angiolymphatic invasion. One of 6 lymph nodes was found positive at lev el IIA with focal extranodal extension found. Cauterized surgical margins were initially po sitive with tumor extending to the torn and disrupted tissue edge at the anterior/base of t he tongue. Marginal biopsies were negative for residual disease. He underwent external be am radiation therapy receiving a total dose of 6300 cGy delivered in 30 fractions using a differential dosing VMAT technique that completed on November 29, 2014. After completing treatme nt, his narcotic pain medication has been tapered and discontinued. He is eating a full an d regular diet at this time. He states that his taste is beginning to come back now 3 lisa hs after completing treatment. He has recently returned to the ENT service at the [facility] in [place] most recently on February 28, 2015 with where a flexible nasal laryngo scopy procedure was performed. No residual disease was seen on this exam. Currently, he h as no specific concerns or complaints after his recent evaluation at the [facility] Review of Systems: ROS ConstitutionalNormal - Denies lack of appetite, fatigue, fever, night sweats, rigors / chills and change in weight.ROS EyesNormal - Denies blurred vision, double vision and visu al difficulties.ROS ENMTAbnormal - Complains of dysphagia lack of sylivia, problems with he aring hearing aids bilateral and mouth dryness. Denies ear pain, oral bleeding, sinusitis, sputum production and altered taste.ROS NeckAbnormal - Complains of neck masses. Denies mus ryan weakness, neck pain, decreased range of motion and swelling of the neck.ROS Integument aryNormal - Denies blistering, bruising, dry skin and rash.ROS CardiovascularNormal - Denie s arrhythmias, chest pain, dyspnea, edema and palpitations.ROS RespiratoryNormal - Denies c ough, dyspnea and wheezing.ROS GastrointestinalNormal - Denies abdominal pain, change in austyn wel habits, constipation, hemorrhoids, nausea and vomiting.ROS Genitourinary (M)Normal - D enies dysuria, frequency, hematuria, urgency and urine color change.ROS MusculoskeletalNorm al - Denies arthritis, bone pain, joint pain, muscle weakness and decreased range of motion .ROS NeurologicNormal - Denies disorientation, dizziness, headaches, memory loss, paralysis , seizure and stroke.ROS EndocrineNormal - Denies diabetes, hot flashes and thyroid diseas e.ROS Hematologic/LymphaticNormal - Denies easy bruising and tender or enlarged lymph nodes . Medications: ASA 81mg TABLET q.d. Allopurinol 300mg TABLET q.d. Carvedilol 12 mg TABLET b.i.d. Isosorbide mononitrate 30 mg TABLET, CONTROLLED RELEASE q.d. Losartan TABLET q.d. Plavix 75mg TABLET STAT Simvastatin 10mg TABLET q.d. Allergies: Oxycodone Physical Exam: Performed on 03/19/2015, 13:54Weight 82.1 kg Temperature 36.6 C Pulse 60 / min Respiration 16 / m in BP132/70 mm(hg) Pain 0 PE ConstitutionalNormal - No evidence [...] n with no evidence of residual disease or lymphadenopathy.PE Neck Normal - No evidence of t tom or enlarged lymph nodes, neck abnormalities and restricted range of motion. The neck has a somewhat woody texture with evidence of localized lymphedema anteriorly and inferior to the thyroid cartilage.PE IntegumentaryAbnormal - Presents with dry skin. No evidence of bruising, erythema, nails changes, altered pigmentation, rash and urticaria.PE Cardiovascu larNormal - No evidence of arterial pulse(s) abnormalities, abnormal heart rate and heart a rrhythmia.PE RespiratoryNormal - No evidence of abnormal breath sounds.PE MusculoskeletalNo rmal - No evidence of bone abnormalities, joint abnormalities and compromised muscle tone.P E Neurologic Normal - No evidence of impaired cranial nerve(s), uncoordinated gait and bernarda r impairment.PE PsychiatricNormal - No evidence of altered affect, lack of comprehension a nd disorientation.PE Hematologic/LymphaticNormal - No evidence of tender or enlarged lymph nodes, tender or enlarged neck lymph nodes and petechiae / purpura / ecchymosis. Questionnaires: Are you having pain?NoWhere does it hurt most?pt denies pain however states he has a sharp pain in his throat if he swallows which is an 8/10.What do you use for pain medication? 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 The primary lesion was 2.4 cm [...] range of motion exercises and lymphedema exercises. I will continue to alternate appointments between ENT at the [facility] in [place] in our clinic on a 2 to three-month basis moving forward. He states that he has an appointment in April in [place], therefore he will return in July 2015 for his next appointment with flexible nasopharyngoscopy evaluation. He was encouraged t o call our clinic with any further questions or concerns. Thank you for allowing me to participate in the care of Navi Johnson. If you nikia karma have any questions regarding this evaluation, please do not hesitate to contact me. Art Red D.O., ALIER Radiation Oncologist Department of Radiation Oncology [facility] This note was transcribed using Click[employer] speech recognition software. As a result, there ma y be unintended for medical and/or spelling errors. Every attempt is made to correct dicta tion. If there are any questions or errors please contact our office. Page 1 of 3 CSN: [id number] signed by Art Red DO at 03/21/2015 5:59 PM Naomi bautista in this encounter Plan [...] [place] | | | | | | [address] | | | | | | | | +--------+ + + + + | 03/13/ | Office | Cardiology | Sophie Delacruz, | | | 2019 | Visit | | MD Chivo DIAZ | | | | | | [place] | | | | | | [phone] | | | | | | | | +--------+ + + + + documented as of this encounter Visit Diagnoses + + | Diagnosis | + + | Carcinoma of base of tongue (HCC) - Primary Malignant neoplasm of base of tongue | + + documented in this encounter"
--- OUTSIDE RECORDS SUMMARY | ~2019-06-05 | XMS | Encounter Summary ---
Demographics + + + | Address | [address] | | | [place] [address] | + + + | Home Phone | | + + + | Preferred Language | Unknown | + + + | Marital Status | | + + + | Orthodoxy Affiliation | NON | + + + | Race | White | + + + | Ethnic Group | Not or | + + + Author + + + | Author | [facility] | + + + | Organization | [facility] | + + + | Address | Unknown | + + + | Phone | Unavailable | + + + Support + + +---------+ + | Name | Relationship | Address | Phone | + + +---------+ + | Kofia Alex | ECON | Unknown | | + + +---------+ + Care Team Providers + +------+ + | Care Pediatric Speech Language Pathologist Name | Role | Phone | + [...] | +--------+ + + + + | 12/15/ | Telephone | Otolaryngology | [place] | Research data | | 2015 | | Speech Therapy | [facility] [place] PARAPROFESSIONAL [address] | collection | | | | Services at [facility] | [address] | | | | | [address] | [place], [place] | | | | | Loop Mailcode: PV01 | [address] | | | | | Physician's | | | | | | [place], | | | | | | [place] [address] | | | | | | [phone] | | | +--------+ + + + [...]
--- OUTSIDE RECORDS SUMMARY | ~2019-06-05 | XMS | Encounter Summary ---
Demographics + + + | Address | [address] | | | [place] [address] | + + + | Home Phone | | + + + | Preferred Language | Unknown | + + + | Marital Status | | + + + | Shinto Affiliation | NON | + + + | Race | White | + + + | Ethnic Group | Not or | + + + Author + + + | Author | [facility] | + + + | Organization | [facility] | + + + | Address | Unknown | + + + | Phone | Unavailable | + + + Support + + +---------+ + | Name | Relationship | Address | Phone | + + +---------+ + | Kofia Alex | ECON | Unknown | | + + +---------+ + Care Team Providers + +------+ + | Care Survey Workers Supervisor Name | Role | Phone | [...] | 2015 | Event | [address] [facility] | [address] | | | | | Rd [facility] | [facility] | | | | | Hospital Admitting | [place], [place] | | | | | Desk Located on the | [address] | | | | | 9th floor | [phone] | | | | | [place], [place] | | | | | | [address] | | | +--------+ + + + [...]
--- OUTSIDE RECORDS SUMMARY | ~2019-06-05 | XMS | Encounter Summary ---
Demographics + + + | Address | [address] | | | [place] [address] | + + + | Home Phone [...] [place] | | | | | [address] | | + + + + + Care Team Providers + +------+ + | Care Database Operator Name | Role | Phone | [...] neoplasm of | [address] | | | | | oropharynx, | [address] | [place], | | | | | unspecified | [place], | [place] [address] | | | | | site | [place] [address] | Phone: | | | | | Procedures | Phone: | [phone] | | | | | [place] IV | [phone] | Fax: | | | | | INFUSION, | Fax: | [phone] | | | | | HYDRATION, | [phone] | | | | | | 31-60 [...] + + | 11/21/ | Hospital | [facility] | Art Red DO | Dysphagia; 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
--- OUTSIDE RECORDS SUMMARY | ~2019-06-05 | XMS | Encounter Summary ---
Demographics + + + | Address | [address] | | | [place] [address] | + + + | Home Phone [...] [place] | | | | | [address] | | + + + + + Care Team Providers + +------+ + | Care Fiber Glass Worker Name | Role | Phone | [...] + + | 10/12/ | Documentati | [facility] | Kimberly Lockett, | FRANCHESCA Note | | 2014 | on | [facility] | PharmD [address] | | | | | [address] [place] | [address] [place] | | | | | [place] [address] | [place] [address] | | | | | [phone] | [phone] | | | | | | | [...] from the original. 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 [facility] 2006; 354(5):567. Pertinent Medical History: has a past medical history of Gout; Macular degeneration of lef t eye; Cancer of base of tongue (HCC); Cardiovascular disease; Hearing loss; DC (myocardial infarction) (HCC) (2013); and HTN (hypertension). [...] [place] | | | | | | [address] | | | | | | | | +--------+ + + + + | 03/13/ | Office | Cardiology | Sophie Delacruz, | | | 2019 | Visit | | MD Chivo DIAZ | | | | | | [place] | | | | | | [id number] | | | | | | | | +--------+ + + + + documented as of this encounter Visit Diagnoses Not on filedocumented in this encounter"
--- OUTSIDE RECORDS SUMMARY | ~2019-06-05 | XMS | Encounter Summary ---
Demographics + + + | Address | [address] | | | [place] [address] | + + + | Home Phone [...] [place] | | | | | [address] | | + + + + + Care Team Providers + +------+ + | Care [employer] Field Supervisor Name | Role | Phone | [...] | | MD Prakash | | [place] [address] | | | | | [facility] | | Phone: | | | | | Procedures | | [phone] | | | | | NEW PATIENT | | Fax: | | | | | | | [phone] | +--------+--------+ + + + + Encounter Details +--------+ + + + + | Date | Type | Department | Care Team | Description | +--------+ + + + + | 03/19/ | Hospital | [facility] | Art Red DO | Carcinoma of base of | | 2015 | Encounter | MED CTR RADIATION | [address] | tongue (HCC) | | | | ONCOLOGY [address] | [place] | (Primary Dx) | | | | [place], | [address] | | | | | [place] [address] | | | | | | [phone] | | | +--------+ + + + [...] 03/19/2015 12:00 AM PDTPATIENT: Navi JohnsonDOS:03/19/2015# : [id number] :1935 Radiation Oncology Follow-up Clinic Note ICD/Diagnosis: C01 - Malignant neoplasm of base of tongue, Diagnosed 08/27/2013 (Active) CC: Danny Abdullahi M.D. Spenser Randall M.D. [facility] Chief Complaint/History of Present Illness: Base of [...] 27, [address] Danny Abdullahi at [facility]. Final patholo gy confirmed a 2.4 cm [...] returned to the ENT service at the [facility] in [place] most recently on February 28, 2015 with where a flexible nasal laryngo scopy procedure was performed. No residual disease was seen on this exam. 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 The primary lesion was 2.4 cm [...] to alternate appointments between ENT at the [facility] in [place] in our clinic on a 2 to three-month basis moving forward. He states that he has an appointment in April in [place], therefore he will return in July 2015 [...] ALIER Radiation Oncologist Department of Radiation Oncology [facility] This note was transcribed using Zilliant speech recognition software. As a result, there ma y be unintended for medical and/or spelling errors. Every attempt is made to correct dicta tion. If there are any questions or errors please contact our office. Page 1 of 3 CSN: [id number] signed by Art Red DO at 03/21/2015 [...] [place] | | | | | | [address] | | | | | | | | +--------+ + + + + | 03/13/ | Office | Cardiology | Sophie Delacruz, | | | 2019 | Visit | | MD Chivo DIAZ | | | | | | [place] | | | | | | [phone] | | | | | | | | +--------+ + + + + documented as of this encounter Visit Diagnoses + + | Diagnosis | + + | Carcinoma of base of tongue (HCC) - Primary Malignant neoplasm of base of tongue | + + documented in this encounter"
--- OUTSIDE RECORDS SUMMARY | ~2019-06-05 | XMS | Encounter Summary ---
Demographics + + + | Address | [address] | | | [place] [address] | + + + | Home Phone [...] + + | Author | [facility] | | | and [place] | + + + | Organization | [facility] | | [...] [place] | | | | | [address] | | + + + + + Care Team Providers + +------+ + | Care Occupational Therapist Per Diem Name | Role | Phone | + [...] [address] | | | | | [place], | [address] [place] | | | | | [place] [address] | [place] [address] | | | | | [phone] | [phone] | | | | | | | [...] Speech Pathologist - 12/03/2014 10:54 [facility] [address] [place] [address] Cancellation/No Show Date: 12/03/2014 Patient Information Patient [...] [place] | | | | | | [address] | | | | | | | | +--------+ + + + + | 03/13/ | Office | Cardiology | Sophie Delacruz, | | | 2019 | Visit | | MD Chivo DIAZ | | | | | | [place] | | | | | | [address] | | | | | | | | +--------+ + + + + documented as of this encounter Visit Diagnoses + + | Diagnosis | + + | Dysphagia - Primary Dysphagia, unspecified | + + documented in this encounter"
--- OUTSIDE RECORDS SUMMARY | ~2019-06-05 | XMS | Encounter Summary ---
Demographics + + + | Address | [address] | | | [place] [address] | + + + | Home Phone | | + + + | Preferred Language | Unknown | + + + | Marital Status | | + + + | Uatsdin Affiliation | Unknown | + + + [...] + | Allie Johnson | ECON | [address] | | | | | [place] | | | | | [address] | | + + + + + Care Team Providers + +------+ + | Care Beverage Host Name | Role | Phone | + +------+ + | Angel Lynch DO | PCP | | + +------+ + Reason for Visit + + + | Reason | Comments | + + + | Follow-up | | + + + Encounter Details +--------+---------+ + + + | Date | Type | Department | Care Team | Description | +--------+---------+ + + + | 03/22/ | Office | [facility] | Sophie Smith, | Coronary artery | | 2019 | Visit | CARDIOLOGY PIETER | [address] | disease involving | | | | [address] | [place], [place] | [place] coronary | | | | [address] | [address] | artery of [place] | | | | [place] | | heart without angina | | | | [address] | | pectoris (Primary | | | | [phone] | | Dx); Essential | | | | | | hypertension, | | | | | | benign; CKD (chronic | | | | | | kidney disease), | | | | | | stage III (HCC) | +--------+---------+ + + + Social History [...] + + + | Blood Pressure | 120/60 | 03/22/2019 10:12 AM | | | | | PDT | | + + + + + | Pulse | 73 | 03/22/2019 10:12 AM | | | | | PDT | | + + + + + | Temperature | - | - | | + + + + + | Respiratory Rate | - | - | | + + + + + | Oxygen Saturation | 98% | 03/22/2019 10:12 AM | | | | | PDT | | + + + + + | Inhaled Oxygen | - | - | | | Concentration | | | | + + + + + | Weight | 82.3 kg (181 lb 8 | 03/22/2019 10:12 AM | | | | oz) | PDT | | + + + + + | Height | 182.9 cm (6') | 03/22/2019 10:12 AM | | | | | PDT | | + + + + + | Body Mass Index | 24.62 | 03/22/2019 10:12 AM | | | | | PDT | | + + + + + documented in this encounter Progress Notes Sophie Smith MD - 03/22/2019 10:30 AM PDTFormatting of this note might be different f rom the original. Date of visit: 03/22/2019 Primary Care Physician: Angel Lynch DO CHIEF COMPLAINT: Chief Complaint Patient presents with Follow-up HISTORY OF PRESENT ILLNESS: Navi is 83 y.o. here for follow up visit. Fair historian. History of abnormal low risk Cardiolite stress test which has been managed medically. Active without cardiac limitations. Denies any chest pain or shortness of breath. No change in medication. Monitoring his blood pressure every morning. Has been taking intermittently hydrochlorothiazide to 3 times a week also losartan to 3 pauly es a week never at the same time. He is to take carvedilol 6.25 mg twice daily and isosorbi de 60 mg once daily. Reviewed records: patient had non-ST elevation [place] in 2013 and since then he has been on med ical therapy for coronary artery disease, apparently no coronary angiogram was done back the n. Patient continues to be on clopidogrel and aspirin. He had ischemic burden evaluation in the summer of 2015 that was stratified as low risk str ess test. Past medical history, SH, FH, and medications were reviewed in the chart. Medications: Outpatient Encounter Medications as of 03/22/2019 Medication Sig Dispense Refill aspirin 81 mg chewable tablet Take 81 mg by mouth Daily. carvedilol (COREG) 12.5 mg tablet Take 12.5 mg by mouth 2 times daily (with breakfast & dinner). cyanocobalamin (VITAMIN B-12) 1000 MCG tablet Take 1,000 mcg by mouth Daily. hydroCHLOROthiazide 25 mg tablet Take 25 mg by mouth Daily. isosorbide mononitrate 60 mg ER tablet Take 60 mg by mouth Daily. levothyroxine (SYNTHROID) 75 mcg tablet Take 75 mcg by mouth every morning (before carolina kfast). Unsure of dose losartan (COZAAR) 50 mg tablet Take 50 mg by mouth Daily. Multiple Vitamins-Minerals (PX MENS MULTIVITAMINS PO) Take 1 tablet by mouth Daily. simvastatin (ZOCOR) 40 mg tablet Take 40 mg by mouth nightly. tamsulosin (FLOMAX) 0.4 mg CAPS Daily. No facility-administered encounter medications on file as of 03/22/2019. Allergies Allergies Allergen Reactions Alendronate Other (See Comments) "made my bones ache bad" Oxycodone REVIEW OF SYSTEMS: Constitutional: Mild fatigue. HEENT: Negative for nosebleeds, ear discharge, nasal congestion or soar throat. Eyes: Negative for visual disturbance, redness, or secretion. Respiratory: Negative for cough, sputum production, hemoptysis, wheezing. Cardiovascular: as HPI. Gastrointestinal: Negative for nausea, vomiting, diarrhea, abdominal pain and blood in stoo l. Genitourinary: Negative for dysuria or hematuria. Musculoskeletal: Chronic arthritic. Skin: Negative for rash. Neurological: Negative for dizziness. No numbness. No recent falls. No slurred speech. Hematological: No significant bruising. Psychiatric/Behavioral: No depression or anxiety. PHYSICAL EXAM Vital Signs: BP 120/60 | Pulse 73 | Ht 1.829 m (6') | Wt 82.3 kg (181 lb 8 oz) | SpO2 98% | BMI 24. 62 kg/m GENERAL APPEARANCE: Alert, oriented, cooperative, no distress, appears stated age. HEENT: Extraocular movements were intact. No jaundice. Pupiles round and reactive. NECK: No JVD, lymphadenopathy. Carotid upstrokes normal. No carotid bruit heard. CARDIAC: Regular rhythm and rate. There is normal S1 and S2. No galop. No murmur. CHEST: Normal bilateral symmetrical chest excursion.ackles or wheezing. No evidence of dull ness. ABDOMEN: Soft.No tenderness or guarding. No palpable organs. Active bowel sounds. EXTREMITIES: No lower extremities edema, cyanosis or clubbing. NEURO: Alert and oriented times three with no focal deficit. Cranial nerves are grossly no rmal. SKIN: Warm and dry. No rash. Psych: Normal affect and mood. DATA Lab Results Component Value Date/Time NA 141 06/20/2014 00:00 NA 141 11/22/2013 00:00 K 4.8 06/20/2014 00:00 K 4.3 11/22/2013 00:00 CO2 27 06/20/2014 00:00 CO2 23 11/22/2013 00:00 BUN 25 (A) 06/20/2014 00:00 BUN 26 11/22/2013 00:00 CALCIUM 8.9 06/20/2014 00:00 CALCIUM 9.0 11/22/2013 00:00 CALCIUM 9.0 11/22/2013 00:00 MG 1.8 06/20/2014 00:00 MG 1.7 11/22/2013 00:00 Lab Results Component Value Date/Time WBC 6.8 06/20/2014 00:00 WBC 7.9 11/22/2013 00:00 HGB 13.4 (A) 06/20/2014 00:00 HGB 13.0 11/22/2013 00:00 MCV 95.2 06/20/2014 00:00 MCV 94.9 11/22/2013 00:00 LABPLAT 176 06/20/2014 00:00 LABPLAT 178 11/22/2013 00:00 Lab Results Component Value Date GLUF 128 (A) 06/20/2014 GLUF 125 11/22/2013 EK06/10/2018 From [facility] showing normal sinus rhythm. Normal EKG. 03/09/2018 Ordered and reviewed by myself showed sinus bradycardia otherwise normal EKG Last Echo: 08/21/2013 Reported from [facility], normal RV size and function EF 65%. RV is danie l size and function. No significant valvular pathology. Last stress test: 09/04/2015 From [place] [facility] [place] [facility]: Reported with small moderately reversible defect in the apex consistent with ischemia. No regional wall motion abnormality. EF 63% normal RV size and function. Low risk study compared to 2014 no changes. Last cath: Carotid US: AAA screening: Lower extremity US: OTHERS: ASSESSMENT: Patient is 83 y.o. with 1. Presumed mild coronary artery disease on noninvasive evaluation. No anginal symptoms. 2. Hypertension, blood pressure is controlled. 3. Chronic kidney disease. 4. Dyslipidemia on statin. 5. Hypertension with controlled blood pressure. Recommendations: Patient denies any anginal symptoms. Continues to monitor his blood pressure at home. At this time will stop hydrochlorothiazide since patient takes it only twice a week. Will start taking losartan every day and monitor blood pressure. Continue with carvedilol 6.25 mg twice daily. Continue with isosorbide mononitrate 60 mg daily.. We will continue on aspirin indefinitely. If he is symptomatic with dizziness will consider stopping isosorbide mononitrate. Will continue to follow patient clinically and further recommendation to follow. Follow-up once a year, will call with any change in symptoms. *This report has been prepared using a voice recognition system. The report was reviewed fo r accuracy, however, sound-alike word errors, addition and/or deletions may occur. If there is any question about this report please contact me. Sophie Smith MD, MPH documented in this encounter Plan of Treatment [...] [place] | | | | | | [address] | | | | | | | | +--------+ + + + + | 03/13/ | Office | Cardiology | Sophie Smith, | | | 2019 | Visit | | MD Chivo DIAZ | | | | | | [place] | | | | | | [address] | | | | | | | | +--------+ + + + + documented as of this encounter Visit Diagnoses + + | Diagnosis | + + | Coronary artery disease involving [place] coronary artery of [place] heart without | | angina pectoris - Primary | + + | Essential hypertension, benign | + + | CKD (chronic kidney disease), stage III (HCC) Chronic kidney disease, Stage III | | (moderate) | + + documented in this encounter
--- OUTSIDE RECORDS SUMMARY | ~2019-06-05 | XMS | Encounter Summary ---
Demographics + + + | Address | [address] | | | [place] [address] | + + + | Home Phone | | + + + | Preferred Language | Unknown | + + + | Marital Status | | + + + | Druze Affiliation | NON | + + + | Race | White | + + + | Ethnic Group | Not or | + + + Author + + + | Author | [facility] | + + + | Organization | [facility] | + + + | Address | Unknown | + + + | Phone | Unavailable | + + + Support + + +---------+ + | Name | Relationship | Address | Phone | + + +---------+ + | Kofia Alex | ECON | Unknown | | + + +---------+ + Care Team Providers + +------+ + | Care License And Permit Specialist Name | Role | Phone | [...] + + + + | 08/27/ | Hospital | [facility] [address] | Danny Abdullahi | | | 2015 - | Encounter | [place] Mailcode: | MD Jessy [address] [facility] | | | | | [id number] Dylan | [facility] | | | 08/31/ | | [place], | [place], [place] | | | 2015 | | [place] [address] | [address] | | | | | [phone] | [phone] | | | | | | | [...] follow-up appointment with Dr. Abdullah[facility] on September 06 at [...] * I spent >30 minutes with Mr. Limon. Greater than 50% of this time was spent counseling him a nd coordinating his care. SHAUN DELATORRE PA-C Department of Otolaryngology/Head and Neck Surgery Mail Code PV01 [address] [place] [address] documented in thi s encounter Discharge Instructions Instructions Yuliana Lancaster - 08/31/2014 Additional Instructions: Patient discharged from hospital with the accompany of his to his home in [facility]. Patient left with all his belongings, [...] by | 400 mL | 0 | 09/01/19 | | | mg/20.3 mL oral | [...] | 0 | 09/01/19 | | | hydrochlorothiazide | tube route [...] by | 300 mL | 0 | 09/01/19 | | | immediate release, 5 | [...] as of this encounter Progress Notes Ti Montano, CESAR-SEEDLING SORTER - 08/31/2014 1:50 PM PDT INPATIENT ENT SPEECH PATHOLOGY NOTE: HISTORY: Skyler Limon is a 79 y.o. male patient with a history of T2N1M0 Left base of tongue cancer . The patient is s/p suspension microlaryngoscopy, rigid esophagoscopy, Transoral robotic s urgery (TORS) for left partial pharyngectomy and left partial glossectomy and Left-sided samantha ective neck dissection, levels 2 through 4 on 08/27/2014. SUBJECTIVE: Mr. Limon "Bala" this afternoon prior to his discharge. [...] SOCIAL HISTORY: The patient currently lives in [place], [place] with his Allie. 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 He reports that he has recently been [...] tolerated. Pt to discharge with TFs via DHT for primary nutrition/hydration. [facility] [place]AC[place] [id number] [facility] Mailcode: Kpv13 [place], [place] [id number] Radha Jiménez RN - 08/31/2014 1:41 PM PDTPrecepting student RN and assisted with both discharge note & instructions. I concur with discharge summary & instructions. Reviewed AVS with patient a nd concur with assessments and teaching. Ti Munson CCC-SEEDLING SORTER - 08/30/2014 4:30 PM PDT INPATIENT ENT SPEECH PATHOLOGY NOTE: HISTORY: Skyler Limon is a 79 y.o. male patient with a history of T2N1M0 Left base of tongue cancer . The patient is s/p suspension microlaryngoscopy, rigid esophagoscopy, Transoral robotic s urgery (TORS) for left partial pharyngectomy and left partial glossectomy and Left-sided samantha ective neck dissection, levels 2 through 4 on 08/27/2014. SUBJECTIVE: Mr. Limon "Bala" awake, but somnolent with his at bedside. He denied any significant p ain, but noted discomfort along his L ear and back of head. Reports taking occasional ice ch ips throughout the day without much difficulty, other than persistent globus sensation. Pt matheus palmer hesitant to work with SEEDLING SORTER this afternoon, but ultimately agreed to do [...] SOCIAL HISTORY: The patient currently lives in [place] [facility] [place], [place] with his Allie. 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 Noted lingual [...] tomorrow am prior to disch arge. TRACY RIDLEY-[address] Mailcode: Kpv[address] [place] [id number] Danny Greenberg MD - 08/30/2014 9:09 AM PDTI examined the patient on daily rounds and agree with the as sessment and plan as documented in the resident's note. DANNY ABDULLAHI MD [address] Mailcode: [place] [id number] haun Delatorre PA-C - 08/30/2014 9:09 AM PDT Head and Neck Surgery Inpatient Daily Progress Note: Author: SHAUN DELATORRE PA-C Attending Physician: Danny Abdullahi MD, * Primary Care Provider: Cong Freeman MD Admission Date: 08/27/2014 SKYLER LIMON, [id number] Hospital Day #3 ID: Mr. Skyler Limon is a 79 y/o male with squmous [...] Recent Labs 08/28/14 1410 08/29/14 0524 08/29/14 1706 08/29/14 2203 08/30/14 0519 08/30/14 0813 NA 142 -- 142 [...] 0811 08/29/14 1256 08/29/14 1706 08/29/14 1737 08/29/14 2203 08/30/14 0519 08/30/14 0813 GLU 195* 190* 112* 129* 198* 153* 169* 185* 153* | 153* 133* ASSESSMENT/PLAN: Skyler Limon is a 79 y.o. male with squmous [...] PA-C Otolaryngology-Head and Neck Surgery [facility] Pager [phone] oLora engle, [facility]-SEEDL[facility] SORTER - 08/30/2014 8:21 AM [facility] INPATIENT ENT SPEECH PATHOLOGY NOTE: HISTORY: Skyler Limon is a 79 y.o. male patient with a history of T2N1M0 Left base of tongue cancer . The patient is s/p suspension microlaryngoscopy, rigid esophagoscopy, Transoral robotic s urgery (TORS) for left partial pharyngectomy and left partial glossectomy and Left-sided samantha ective neck dissection, levels 2 through 4 on 08/27/2014. SUBJECTIVE: Mr. Limon "Bala" is awake and alert this morning [...] is ready and willing to work with SEEDLING SORTER this morning. Would like to DC without feeding tube. PAIN SCALES: Worst pain level yesterday: 0 (per patient report) Pain at the start of the session: 0 Pain at the end of the session: 5 DIETARY STATUS: Full Liquids started yesterday - mostly taking sips of water only. TFs via DHT. SOCIAL HISTORY: The patient currently lives in [facility], [place] with his Allie. 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 Noted lingual [...] sips of Boost via straw x4, h half-way-tsp of apple sauce x2. Oral phase was [...] Reviewed basic rehabilitation course and role of SEEDLING SORTER. Reviewed all aspiration precautions a nd dysphagia [...] per our usual protocol. Lora Grande MS, CCC-SEEDLING SORTER Speech-Language Pathologist [facility] Dept. of Otolaryngology, PV-01 [address] [facility] [place] [address] Pager: [phone] signed by Lora Grande, CESAR-SEEDLING SORTER at 08/30/2014 8:57 AM PDT Steph Trejo CCC-SEEDLING SORTER - 08/29/2014 11:17 AM PDTENT SPEECH IP NOTE: SUBJECTIVE: Skyler Limon is a 79 y.o. male patient with [...] appropriate for swallow evaluation this morning. Mr. Limon is awake and alert this morning with his at bedside. He denies any current pa in or difficulty breathing. He reports significant difficulty swallowing noting that he does not feel like he is able to do so. He is using oral suction for secretion management. He is ready and willing to work with SEEDLING SORTER this morning. PAIN SCALES: Worst pain level yesterday: 0 Pain at the start of the session: 0 Pain at the end of the session: 3 DIETARY STATUS: Current diet: The patient is currently NPO with DHT in place for all nutrition/hydration/me ds pending swallow evaluation. SOCIAL HISTORY: The patient currently lives in [facility] with his Allie. 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 He reports that he has recently been [...] The patient has an upper denture and [place] lower teeth in good repair. Noted lingual [...] Reviewed basic rehabilitation course and role of SEEDLING SORTER. Reviewed all aspiration precautions a nd dysphagia [...] stay per our protocol. Steph Trejo M.S., CESAR-SEEDLING SORTER Speech-Language Pathologist [facility] Otolaryngology, Head & Neck [facility] Shaun Ham PA-C - 08/29/2014 8:53 AM PDT . Head and Neck Surgery Inpatient Daily Progress Note: Author: SHAUN DELATORRE PA-C Attending Physician: Danny Abdullahi MD, * Primary Care Provider: Cnog Freeman MD Admission Date: 08/27/2014 SKYLER LIMON, [id number] Hospital Day #2 ID: Mr. Skyler Limon is a 79 y/o male with squmous [...] suction with serosanguinous output LABS: Recent Labs 08/28/1420408/28/14140908/29/14 0524 08/29/14 0604 08/29/14 0658 08/29/14 0811 [...] in this interval not displayed. Recent Labs 08/28/1420408/28/14140908/29/14 0524 MG 1.5* 2.7* 2.6* Recent Labs [...] 191* 195* 190* 112* 129* ASSESSMENT/PLAN: Skyler Limon is a 79 y.o. male with squmous [...] 136-206 probably 2/2 be on steroid. Gilbert l continue to monitor CBG's. 7. Renal function 2/2 h/o of CRF will continue to monitor renal function and discuss with team for any IV fluids. 8. Others: continue bowel regimen, ambulation, pulmonary hygiene ROMILLA BIJLANI, PA-C Otolaryngology-Head and Neck Surgery [facility] Pager [phone] Galen Mijares M D,PhD - 08/28/2014 4:10 [...] an SpO2 95-100% with supplemental oxygen by NC. The tube exchanger was removed after 10 minutes. Galen Mijares MD,PhD - 08/28/2014 3:26 PM PDTFormatting of this note might be different from t he original. Cardiovascular Intensive Care Unit Team Progress Note CVICU D1 Assigned #[id number] ICU Admission Reason Most Recent Value ICU Admission reason airway edema filed at 08/27/2014 1832 Documentation Date - WedAugust 27, 20141827 Procedure Date Day of Procedure 08/27/14 ENT ENT ENT ENT Procedures Other ENT Other TORS partial glossectomy and L neck dissection 2027 ENT ENT Procedures Other ENT Other TORS partial pharyngectomy HPI Mr. Limon is an 79 year old male with hx of CAD s/p KS in 2013, HTN, CKD, and hx of [...] the ICU intubated and sedated . Mr. Limon's KS in 2013 was medically managed and his [...] Difficult intubation Cardiovascular CAD (coronary artery disease), [place] coronary artery Overview S/P KS 2013 Current Assessment & Plan -Per ENT, [...] kidney disease) Current Assessment & Plan Baseline Counter Molder ~1.5 Digestive GERD (gastroesophageal reflux disease) Overview [...] Role Pager Danny Abdullahi MD Admitting Provider [phone] Daryn Finney MD ICU PM Attending [phone] Danny Jaffe MD ICU Day Attending 00151 FAST HUG Feeding: NPO Analgesia: Acetaminophen, oxycodone, hydromorphone Sedation: NA Thromboprophylaxis: SCDs Head of Bed: > 30 degrees Ulcer Prophylaxis: famotidine Glycemic Control: insulin infusion Author:GALEN KEENAN MD,PhD [address] [address] Dontrell Friend MD - 08/28/2014 8:58 AM PDT Cardiovascular Intensive Care Unit Attending Progress Note CVICU D1 Assigned #[id number] ICU Admission Reason Most Recent Value ICU Admission reason airway edema filed at 08/27/2014 1832 Documentation Date - WedAugust 27, 2014 1828 Procedure Date Day of Procedure 08/27/14 ENT ENT ENT ENT Procedures Other ENT Other TORS partial glossectomy and L neck dissection 2027 ENT ENT Procedures Other ENT Other TORS partial pharyngectomy Hospital admission dx: Data Unavailable Days in ICU HPI Mr. Limon is an 79 year old male with hx of CAD s/p KS in 2013, HTN, CKD, and hx of [...] the ICU intubated and sedated . Mr. Limon's KS in 2013 was medically managed and his [...] passes SBT. With history of CAD and KS, will continue ASA 81 mg and switch from low intensity statin to high intensity (atorvastatin 80). Hospital Problems Priority Head/Neck Airway edema Difficult intubation Cardiovascular CAD (coronary artery disease), [place] coronary artery HTN (hypertension) Respiratory/Chest Respiratory insufficiency Pulmonary edema Genitourinary CKD (chronic kidney disease) Digestive GERD (gastroesophageal reflux disease) Other Post-operative pain Service ENT [12] Admitting provider and ICU treatment team members Provider Role Pager Danny Abdullahi MD Admitting Provider [phone] Daryn Finney MD ICU PM Attending [phone] Danny Jaffe MD ICU Day Attending [phone] I have spent a total of 95 minutes in the direct care and management of this patient who is critically ill independent of any time spent teaching or performing any separately billable procedures. I reviewed the documented findings, all data and the recent imaging available. Author:DANNY JAFFE MD [address] [address] Shaun Ham PA-C - 08/28/2014 8:37 AM PDT Head and Neck Surgery Inpatient Daily Progress Note: Author: SHAUN DELATORRE PA-C Attending Physician: Danny Abdullahi MD, * Primary Care Provider: Cong Freeman MD Admission Date: 08/27/2014 SKYLER LIMON, [id number] Hospital Day #1 ID: Mr. Skyler Limon is a 79 y/o male with squmous [...] 158* 146* 129* 153* 139* ASSESSMENT/PLAN: Skyler Limon is a 79 y.o. male with squmous [...] PA-C Otolaryngology-Head and Neck Surgery [facility] Pager [phone] documented in this encounter Plan of Treatment [...] [facility] | [address] | [place], [place] | | | LIZZ ESPARZA OF CARE | [address] | [address] | | | TESTS | | | [...] [facility] | [address] | [place], [place] | | | VILMA POINT OF CARE | [address] | [address] | | | TESTS | | | [...] + | [facility] | [address] [facility] [address] | [place], [place] | | | [place] POINT OF CARE | [address] | [address] | | | TESTS | | | [...] | | | LABORATORY | | | CROATIAN | | | SERVICES, | | | [...] equation recommended by the National | SERVICES, CORE | | Kidney Disease Education Program. Estimated [...] | + + + + + | [facility] | [address] [facility] | [place] [address] | | | SERVICES, [facility] | [address] | | | + [...] [facility] | [address] | [place], [place] | | | LIZZ [place]ZA OF [place] | [address] | [address] | | | TESTS | | | [...] (H) | 60 - 99 mg/dL | [facility] - | | | GLUCOSE, | | [...] [facility] | [address] | [place], [place] | | | LIZZ ESPARZA OF CARE | [address] | [address] | | | TESTS | | | [...] [facility] | [address] | [place], [place] | | | VILMA POINT OF CARE | [address] | [address] | | | TESTS | | | [...] [facility]ED[facility] | [address] | [place], [place] | | | LIZZ ESPARZA OF [facility] | [facility] | [address] | | | TESTS | | | [...] [facility] | [address] | [place] [address] | | | SERVICES, CORE | MARINA [...] | | | LABORATORY | | | CROATIAN | | | SERVICES, | | | [...] | + + + + + | [facility] | [address] | [place] [address] | | | SERVICES, CORE | PARK [...] | | | LABORATORY | | | CROATIAN | | | SERVICES, | | | [...] | + + + + + | [facility] | [address] | [place] [address] | | | SERVICES, CORE | [address] | | | + + + + + MAGNESIUM, PLASMA (08/30/2014 5:19 AM PDT) + +-------+ + + + | Component | Value | Ref Range | Performed | Pathologist | | | | | At | Signature | + +-------+ + + + | MAGNESIUM,P | 2.4 | 1.8 - 2.5 mg/dL | [facility] | | | LASMA | | | [...] | + + + + + | [facility] | [address] | [place] [address] | | | SERVICES, CORE | MARINA [...] [facility] | [address] | [place], [place] | | | LIZZ ESP[place]ZA OF [place] | [address] | [address] | | | TESTS | | | [...] | | | POC | | | [facility] | | | | | | OF [...] PEDRO | [address] | [place], [place] | | | [place]ODRU[place] POINT OF CARE | [address] | [address] | | | TESTS | | | [...] | | | LABORATORY | | | CROATIAN | | | SERVICES, | | | [...] the MDRD equation recommended by the | [facility] | | National Kidney Disease Education Program. Estimated GFR | LABORATORY | | Interpretive Information: <60 mL/min/1.73 sq m | NEFTALY, MATY | | Chronic Kidney Disease <15 mL/min/1.73 [...] | + + + + + | [facility] | [address] | [place] [address] | | | SERVICES, CORE | PARK [...] [facility] | [address] | [place], [place] | | | V[place]MA POINT OF CARE | [address] | [address] | | | TESTS | | | [...] [facility] | [address] | [place], [place] | | | V[place]MA POINT OF CARE | [address] | [address] | | | TESTS | | | | + + + + + CAPILLARY BLOOD GLUCOSE (NO CHG), POC (08/29/2014 6:58 AM PDT) + +---------+ [...] [facility] | [address] | [place], [place] | | | V[place]MA POINT OF CARE | [address] | [address] | | | TESTS | | | [...] + | [facility] | [address] | [place], [place] | | | V[place] POINT OF CARE | [address] | [address] | | | TESTS | | | [...] [facility] | [address] | [place] [address] | | | SERVICES, CORE | PARK [...] | | | LABORATORY | | | CROATIAN | | | SERVICES, | | | [...] | + + + + + | [facility] | [address] | [place] [address] | | | SERVICES, CORE | [address] | | | + + + + + MAGNESIUM, PLASMA (08/29/2014 5:24 AM PDT) + +---------+ + + + | Component | Value | Ref Range | Performed | Pathologist | | | | | At | Signature | + +---------+ + + + | MAGNESIUM,P | 2.6 (H) | 1.8 - 2.5 mg/dL | [facility] | | | LASMA | | | [...] | + + + + + | [facility] | [address] | [place] [address] | | | SERVICES, CORE | PARK [...] + | [facility] | [address] | [place], [place] | | | LIZZ ESPARZA OF CARE | [address] | [address] | | | TESTS | | | [...] [facility] | [address] | [place], [place] | | | LIZZ ESPARZA OF CARE | [address] | [address] | | | TESTS | | | [...] [facility] | [address] | [place], [place] | | | LIZZ [place] OF [place] | [address] | [address] | | | TESTS | | | [...] + | [facility] | [address] | [place], [place] | | | LIZZ ESPARZA OF CARE | [address] | [address] | | | TESTS | | | [...] [facility] | [address] | [place], [place] | | | V[place]MA POINT OF CARE | [address] | [address] | | | TESTS | | | [...] [facility] | [address] | [place], [place] | | | LIZZ ESPARZA OF CARE | [address] | [address] | | | TESTS | | | [...] + | [facility] | [address] | [place], [place] | | | LIZZ ESPARZA OF CARE | [address] | [address] | | | TESTS | | | [...] [facility] | [address] | [place], [place] | | | V[place] POINT OF CARE | [address] | [address] | | | TESTS | | | [...] [facility] | [address] | [place], [place] | | | LIZZ ESPARZA OF CARE | [address] | [address] | | | TESTS | | | [...] | | | | | signed / ALLISON CLINE | | | | [...] 2.5 mg/dL | [facility] | | | LASMA | | | [...] + + + + + | [facility] | [address] | [place] [address] | | | SERVICES, CORE | PARK [...] | | | LABORATORY | | | CROATIAN | | | SERVICES, | | | [...] | + + + + + | [facility] | [address] | [place] [address] | | | SERVICES, CORE | PARK [...] (H) | 60 - 99 mg/dL | [facility] - | | | GLUCOSE, | | [...] [facility] | [address] | [place], [place] | | | LIZZ [place] OF [place] | [facility] | [address] | | | TESTS | | | [...] + | [facility] | [address] | [place], [place] | | | LIZZ ESPARZA OF CARE | [facility] | [address] | | | TESTS | | | [...] (H) | 60 - 99 mg/dL | [facility] - | | | GLUCOSE, | | [...] + | [facility] | [address] | [place], [place] | | | LIZZ ESPARZA OF CARE | [address] | [address] | | | TESTS | | | [...] [facility] | [address] | [place], [place] | | | LIZZ [place]ZA OF [place] | [facility] | [address] | | | TESTS | | | | + + + + + CAPILLARY BLOOD GLUCOSE (NO CHG) POC (08/28/2014 9:27 AM PDT) + +---------+ [...] [facility] | [address] | [place], [place] | | | V[place]MA POINT OF CARE | [address] | [address] | | | TESTS | | | | + + + + + X-RAY PORTABLE CHEST 1 VIEW (08/28/2014 8:30 AM PDT) + + + + + + | Component | Value | Ref Range | Performed | Pathologist | | | | | At | Signature | + + + + + + | X-RAY | EXAM: MD CHEST 1 VIEW | | | | [...] | | | | maria eugenia / MELITON | | | | | | MOIZ 08/28/2014 11:49 | | | | | [...] [facility] | [address] | [place], [place] | | | LIZZ ESPARZA OF CARE | [address] | [address] | | | TESTS | | | [...] [facility] | [address] | [place], [place] | | | LIZZ ESPARZA OF CARE | [address] | [address] | | | TESTS | | | [...] [facility] | [address] | [place], [place] | | | V[place]MA POINT OF CARE | [address] | [address] | | | TESTS | | | [...] [facility] | [address] | [place], [place] | | | LIZZ [place] OF [place] | [address] | [address] | | | TESTS | | | [...] [facility] | [address] | [place], [place] | | | V[place]MA POINT OF CARE | [address] | [address] | | | TESTS | | | [...] [facility] | [address] | [place], [place] | | | VILMA POINT OF CARE | [address] | [address] | | | TESTS | | | [...] [facility] | [address] | [place], [place] | | | LIZZ ESPARZA OF CARE | [address] | [address] | | | TESTS | | | [...] | + + + + + | [facility] | [address] | [place] [address] | | | SERVICES, MATY | MARINA [...] | | | LABORATORY | | | CROATIAN | | | SERVICES, | | | [...] the MDRD equation recommended by the | [facility] | | National Kidney Disease Education Program. [...] | + + + + + | [facility] | [address] | [place] [address] | | | SERVICES, CORE | [address] | | | + + + + + MAGNESIUM, PLASMA (08/28/2014 2:05 AM PDT) + +---------+ + + + | Component | Value | Ref Range | Performed | Pathologist | | | | | At | Signature | + +---------+ + + + | MAGNESIUM,P | 1.5 (L) | 1.8 - 2.5 mg/dL | [facility] | | | LASMA | | | [...] | + + + + + | [facility] | [address] [facility] | [place] [address] | | | SERVICES, CORE | MARINA [...] PEDRO | [address] | [place], [place] | | | LIZZ ESPARZA OF [facility] | [address] | [address] | | | TESTS | | | [...] [facility]ED[facility] | [address] | [place], [place] | | | LIZZ ESPARZA OF [facility] | [facility] | [address] | | | TESTS | | | [...] + + + + + | [facility] | [address] | [place] [address] | | | MATY HIGGINBOTHAM | MARINA [...] + + + + + | [facility] | [address] | [place], [place] | | | [place] OF [facility] | [address] | [address] | | | TESTS | | | [...] | | | LABORATORY | | | CROATIAN | | | SERVICES, | | | [...] | + + + + + | [facility] | [address] [facility] | [place] [address] | | | SERVICES, CORE | MARINA [...] + + + + | X-RAY | STUDY:MD CHEST 1 VIEW | | | | [...] | + + | Manuel Booth - 08/28/2014 8:25 AM PDT | + + + + + + + | Performing | Address | City/State/Zipcode | Phone Number | | Organization | | | | + + + + + | [facility] | [address] | [place], [place] | | | CARDIOLOGY | [address] | [address] | | + + + + + [...] [facility] | [address] | [place], [place] | | | LIZZ ESPARZA OF CARE | [address] | [address] | | | TESTS | | | [...] | + + + + + | [facility] | [address] | [place] [address] | | | SERVICES, CORE | PARK [...] [facility] | [address] | [place] [address] | | | SERVICES, CORE | PARK [...] | | | LABORATORY | | | CROATIAN | | | SERVICES, | | | [...] | + + + + + | [facility] | [address] | [place] [address] | | | SERVICES, CORE | MARINA [...] [facility] | [address] | [place], [place] | | | VILMA POINT OF CARE | [address] | [address] | | | TESTS | | | [...] [facility] | [address] | [place] [address] | | | SERVICES, | [address] [...] + + + + + | [facility] | [address] | [place] [address] | | | SERVICES, | [address] [...] by:Nicho | | | | | | Josiah M.Gilson./Surgical | | | | | | Pathology [...] | | | | | | Grade: [id number]: | | | | | | Positive for invasive | | | | | | carcinomaPositve | | | | | | margin(s): | | | | | | Anterior/base of | | | | | | tongue/deep (Area | | | | | | designated as tornby the | | | | | | [...] Oropharynx: | | | | | | [id number] Lymph | | | | | | Nodes (pN)Regional Lymph | | | | | | Nodes (pN): Oropharynx | | | | | | and Hypopharynx: | | | | | | [id number] of regional | | | | | [...] cm. | | | | | | Morgue Librarian | | | | | | sections [...] nodes. | | | | | | [employer]org[employer] Librarian of | | | | | | [...] marginsA6, | | | | | | labor relations representative posterior | | | | | [...] 2A:F1-2, | | | | | | labor relations representative of | | | | | [...] [place] | | | | | | Candelaria | | | | | | jayne [...] | + + + + + | [facility] | [address] | [place] [address] | | | PATHOLOGY | [address] [...] | oropharynx, unspecified site | + + | CAD (coronary artery disease), [place] coronary artery Coronary atherosclerosis of | | [place] coronary artery | + + | Airway edema Edema of pharynx or nasopharynx | + + | Post-operative pain Other acute postoperative pain | + + | Respiratory insufficiency Other dyspnea and respiratory abnormality | + + | Difficult intubation Other specified conditions influencing health status | + + | HTN (hypertension) Unspecified essential hypertension | + + | GERD (gastroesophageal reflux disease) Esophageal reflux | + + | CKD (chronic kidney disease) Chronic kidney disease, unspecified | + + | Pulmonary edema Pulmonary congestion and hypostasis | + + documented in this encounter Administered Medications + +--------+ +--------+------+------+ | Medication Order | MAR | Action | Dose | Rate | Site | | | Action | Date | | | | + +--------+ +--------+------+------+ | acetaminophen (TYLENOL) oral | Given | 09/01/19 | 650 mg | | | | suspension 325-650 mg 325-650 | | 15 4:26 | | | | | mg, feeding tube, EVERY 4 HOURS | | PM PDT | | | | | NEEDED, Starting 08/27/14 | | | | | | | at 1150, Until 08/31/14 at | | | | | | | 2243, mild pain | | | | | | + +--------+ +--------+------+------+ +-------+ +--------+---+---+ | Given | 09/01/19 | 650 mg | | | | | 15 12:25 | | | | | | PM PDT | | | | +-------+ +--------+---+---+ | Given | 09/01/19 | 650 mg | | | | | 15 8:18 | | | | | | AM PDT | | | | +-------+ +--------+---+---+ +---+---+ | | | +---+---+ + +---------+ +--------+---+---+ | albumin human (BUMINATE, | New Bag | 08/29/19 | 12.5 g | | | | FLEXBUMIN) 5 % injection 12.5 g | | 15 4:53 | | | | | 12.5 g, intravenous, ONCE, 1 | | AM PDT | | | | | dose, Sapna 08/28/14 at 0515 | | | | | | + +---------+ +--------+---+---+ +---+---+ | | | +---+---+ + +-------+ +--------+---+---+ | allopurinol (ZYLOPRIM) oral | Given | 08/28/19 | 150 mg | | | | dose 150 mg 150 mg, feeding | | 15 7:06 | | | | | tube, DAILY, First dose on Mon | | PM PDT | | | | | 08/27/14 at 1800, Until | | | | | | | Discontinued | | | | | | + +-------+ +--------+---+---+ +---+---+ | | | +---+---+ + +-------+ +--------+---+---+ | allopurinol (ZYLOPRIM) oral | Given | 09/01/19 | 150 mg | | | | dose 150 mg 150 mg, feeding | | 15 8:18 | | | | | tube, DAILY, First dose (after | | AM PDT | | | | | last modification) on Wed08/28/14 | | | | | | | at 0900, Until Discontinued | | | | | | + +-------+ +--------+---+---+ +-------+ +--------+---+---+ | Given | 08/31/19 | 150 mg | | | | | 15 9:51 | | | | | | AM PDT | | | | +-------+ +--------+---+---+ | Given | 08/30/19 | 150 mg | | | | | 15 10:09 | | | | | | AM PDT | | | | +-------+ +--------+---+---+ +---+---+ | | | +---+---+ + +-------+ +-------+---+---+ | atorvastatin (LIPITOR) tablet | Given | 09/01/19 | 80 mg | | | | 80 mg 80 mg, feeding tube, | | 15 8:18 | | | | | DAILY, First dose on Wed08/28/14 | | AM PDT | | | | | at 1045, Until Discontinued | | | | | | + +-------+ +-------+---+---+ +-------+ +-------+---+---+ | Given | 08/31/19 | 80 mg | | | | | 15 9:51 | | | | | | AM PDT | | | | +-------+ +-------+---+---+ | Given | 08/30/19 | 80 mg | | | | | 15 10:08 | | | | | | AM PDT | | | | +-------+ +-------+---+---+ +---+---+ | | | +---+---+ + +-------+ +---------+---+---+ | carvedilol (COREG) tablet 6.25 | Given | 09/01/19 | 6.25 mg | | | | mg 6.25 mg, feeding tube, TWICE | | 15 8:18 | | | | | DAILY, First dose (after last | | AM PDT | | | | | modification) on 08/27/14 at | | | | | | | 1830, Until Discontinued | | | | | | + +-------+ +---------+---+---+ +-------+ +---------+---+---+ | Given | 08/31/19 | 6.25 mg | | | | | 15 9:38 | | | | | | PM PDT | | | | +-------+ +---------+---+---+ | Given | 08/30/19 | 6.25 mg | | | | | 15 8:05 | | | | | | PM PDT | | | | +-------+ +---------+---+---+ +---+---+ | | | +---+---+ + +-------+ +-------+---+---+ | chlorhexidine (PERIDEX) | Given | 09/01/19 | 15 mL | | | | mouthwash 15 mL 15 mL, oral, | | 15 4:25 | | | | | EVERY 6 HOURS, First dose on Mon | | PM PDT | | | | | 08/27/14 at 1600, Until | | | | | | | Discontinued | | | | | | + +-------+ +-------+---+---+ +-------+ +-------+---+---+ | Given | 09/01/19 | 15 mL | | | | | 15 10:16 | | | | | | AM PDT | | | | +-------+ +-------+---+---+ | Given | 09/01/19 | 15 mL | | | | | 15 3:40 | | | | | | AM PDT | | | | +-------+ +-------+---+---+ +---+---+ | | | +---+---+ + +---------+ +------+---+---+ | dexamethasone (DECADRON) | New Bag | 08/30/19 | 8 mg | | | | injection 8 mg 8 mg, | | 15 3:27 | | | | | intravenous, EVERY 8 HOURS, 6 | | PM PDT | | | | | doses, First dose on Wed08/27/14 | | | | | | | at 2000, Last dose on Wed08/29/14 | | | | | | | at 1200 | | | | | | + +---------+ +------+---+---+ +---------+ +------+---+---+ | New Bag | 08/30/19 | 8 mg | | | | | 15 4:01 | | | | | | AM PDT | | | | +---------+ +------+---+---+ | New Bag | 08/29/19 | 8 mg | | | | | 15 8:18 | | | | | | PM PDT | | | | +---------+ +------+---+---+ +---+---+ | | | +---+---+ + +-------+ +-------+---+---+ | docusate sodium liquid 50 mg | Given | 09/01/19 | 50 mg | | | | 50 mg, feeding tube, TWICE DAILY, | | 15 8:18 | | | | | First dose on Wed08/27/14 at | | AM PDT | | | | | 2100, Until Discontinued | | | | | | + +-------+ +-------+---+---+ +-------+ +-------+---+---+ | Given | 08/31/19 | 50 mg | | | | | 15 9:14 | | | | | | PM PDT | | | | +-------+ +-------+---+---+ | Given | 08/31/19 | 50 mg | | | | | 15 9:51 | | | | | | AM PDT | | | | +-------+ +-------+---+---+ +---+---+ | | | +---+---+ + +---------+ +-------+-------+---+ | famotidine in NS (PEPCID) IV 20 | New Bag | 09/01/19 | 20 mg | 200 | | | mg 20 mg, intravenous, DAILY, | | 15 8:18 | | mL/hr | | | First dose on Wed08/27/14 at | | AM PDT | | | | | 2100, Until Discontinued | | | | | | + +---------+ +-------+-------+---+ +---------+ +-------+-------+---+ | New Bag | 08/31/19 | 20 mg | 200 | | | | 15 10:12 | | mL/hr | | | | AM PDT | | | | +---------+ +-------+-------+---+ | New Bag | 08/30/19 | 20 mg | 200 | | | | 15 3:27 | | mL/hr | | | | PM PDT | | | | +---------+ +-------+-------+---+ +---+---+ | | | +---+---+ + +---------+ +-------+---+---+ | furosemide (LASIX) injection 40 | New Bag | 08/29/19 | 40 mg | | | | mg 40 mg, intravenous, ONCE, 1 | | 15 9:33 | | | | | Sapna kumar 08/28/14 at 0930 | | AM PDT | | | | + +---------+ +-------+---+---+ +---+---+ | | | +---+---+ + +---------+ +--------+---+---+ | HYDROmorphone (DILAUDID) | New Bag | 08/29/19 | 0.2 mg | | | | injection 0.2-1 mg 0.2-1 mg, | | 15 7:26 | | | | | intravenous, EVERY 2 HOURS | | PM PDT | | | | | NEEDED, Starting Wed08/27/14 at | | | | | | | 1447, Until Wed08/31/14 at 2243, | | | | | | | moderate pain | | | | | | + +---------+ +--------+---+---+ +---------+ +--------+---+---+ | New Bag | 08/29/19 | 0.2 mg | | | | | 15 3:31 | | | | | | PM PDT | | | | +---------+ +--------+---+---+ | New Bag | 08/29/19 | 0.2 mg | | | | | 15 12:52 | | | | | | PM PDT | | | | +---------+ +--------+---+---+ +---+---+ | | | +---+---+ + +-------+ +---------+---+---+ | insulin lispro (HUMALOG) | Given | 09/01/19 | 2 Units | | | | injection subcutaneous, FOUR | | 15 10:16 | | | | | TIMES DAILY, First dose on Wed | | AM PDT | | | | | 08/29/14 at 1200, Until | | | | | | | Discontinued | | | | | | + +-------+ +---------+---+---+ +-------+ +---------+---+---+ | Given | 08/31/19 | 2 Units | | | | | 15 9:30 | | | | | | PM PDT | | | | +-------+ +---------+---+---+ | Given | 08/31/19 | 2 Units | | | | | 15 5:37 | | | | | | PM PDT | | | | +-------+ +---------+---+---+ +---+---+ | | | +---+---+ + + + +---------+---+---+ | insulin regular bolus from | Bolus | 08/29/19 | 2 Units | | | | continuous infusion 1-75 Units | from | 15 12:17 | | | | | 1-75 Units, intravenous, BOLUS | Same Bag | AM PDT | | | | | PRN, Starting Tu08/28/14 at | | | | | | | 0005, Until 08/29/14 at 0818, | | | | | | | Per EndoTool Infusion Protocol | | | | | | | while in ICU | | | | | | + + + +---------+---+---+ +---+---+ | | | +---+---+ + + + + +---------+---+ | insulin regular in NaCl 0.9% IV | Rate/Dos | 08/30/19 | 4 | 4 mL/hr | | | infusion 250 units/250 mL (1 | e Verify | 15 7:22 | Units/hr | | | | unit/mL) 0.1-50 Units/hr | | AM PDT | | | | | (rounded to 0.1-50 mL/hr), | | | | | | | intravenous, CONTINUOUS, Starting | | | | | | | 08/28/14 at 0045, Until Wed | | | | | | | 08/29/14 at 0818 | | | | | | + + + + +---------+---+ + + + +---------+---+ | Rate/Dose Change | 08/30/19 | 4 | 4 mL/hr | | | | 15 7:01 | Units/hr | | | | | AM PDT | | | | + + + +---------+---+ | Rate/Dose Change | 08/30/19 | 4.5 | 4.5 | | | | 15 6:11 | Units/hr | mL/hr | | | | AM PDT | | | | + + + +---------+---+ +---+---+ | | | +---+---+ + +-------+ +------+---+---+ | INV dexamethasone/placebo | Given | 08/29/19 | 8 mg | | | | concentrate oral solution | | 15 3:14 | | | | | (Intensol) 8 mg 8 mg, feeding | | AM PDT | | | | | tube, EVERY 8 HOURS, 10 doses, | | | | | | | First dose (after last | | | | | | | modification) on 08/27/14 at | | | | | | | 1700, Last dose on Wed08/30/14 at | | | | | | | 1700 | | | | | | + +-------+ +------+---+---+ +-------+ +------+---+---+ | Given | 08/28/19 | 8 mg | | | | | 15 5:42 | | | | | | PM [...] +---+---+---+ +---+---+ | | | +---+---+ + + + + + +---+ | lactated ringers IV 10 mL/hr, | Restarte | 08/30/19 | 10 mL/hr | 10 mL/hr | | | intravenous, CONTINUOUS, Starting | d | 15 3:27 | | | | | 08/27/14 at 1445, Until Wed | | PM PDT | | | | | 08/29/14 at 2022 | | | | | | + + + + + +---+ + + + + +---+ | Rate/Dose Change | 08/29/19 | 10 mL/hr | 10 mL/hr | | | | 15 9:00 | | | | | | AM PDT | | | | + + + + +---+ | New Bag | 08/28/19 | 10 mL/hr | 10 mL/hr | | | | 15 2:45 | | | | | | PM PDT | | | | + + + + +---+ +---+---+ | | | +---+---+ + +---------+ +--------+---+---+ | lactated ringers IV 500 mL, | New Bag | 08/30/19 | 500 mL | | | | intravenous, ONCE, 1 dose, Wed | | 15 8:58 | | | | | 08/29/14 at 2100 | | PM PDT | | | | + +---------+ +--------+---+---+ +---+---+ | | | +---+---+ + +-------+ +--------+---+---+ | lidocaine PF 40 mg/mL (4 %) | Given | 08/29/19 | 200 mg | | | | injection 1 dose, Starting Tue | | 15 1:35 | | | | | 08/28/14 at 1333, Until Tue | | PM PDT | | | | | 08/28/14 at 1335 | | | | | | + +-------+ +--------+---+---+ +---+---+ | | | +---+---+ + +---------+ +-----+---+---+ | magnesium sulfate in water IV | New Bag | 08/29/19 | 2 g | | | | (RTU) 2 g 2 g, intravenous, | | 15 3:35 | | | | | ONCE, 1 dose, 08/28/14 at 0400 | | AM PDT | | | | + +---------+ +-----+---+---+ +---+---+ | | | +---+---+ + +---------+ +-----+---+---+ | magnesium sulfate in water IV | New Bag | 08/29/19 | 2 g | | | | (RTU) 2 g 2 g, intravenous, | | 15 9:32 | | | | | ONCE, 1 dose, 08/28/14 at 0930 | | AM PDT | | | | + +---------+ +-----+---+---+ +---+---+ | | | +---+---+ + +---------+ +--------+---+---+ | NaCl 0.9 % IV 500 mL, | New Bag | 08/30/19 | 500 mL | | | | intravenous, ONCE, 1 dose, Wed | | 15 1:58 | | | | | 08/29/14 at 1000 | | PM PDT | | | | + +---------+ +--------+---+---+ +---+---+ | | | +---+---+ + +---------+ +--------+---+---+ | NaCl 0.9 % IV 500 mL, | New Bag | 08/30/19 | 500 mL | | | | intravenous, ONCE, 1 dose, Wed | | 15 1:57 | | | | | 08/29/14 at 1115 | | PM PDT | | | | + +---------+ +--------+---+---+ +---+---+ | | | +---+---+ + +---------+ +------+---+---+ | ondansetron (ZOFRAN) injection | New Bag | 09/01/19 | 4 mg | | | | 4 mg 4 mg, intravenous, EVERY 12 | | 15 6:25 | | | | | HOURS NEEDED, Starting Mon | | AM PDT | | | | | 08/27/14 at 1150, Until 08/31/14 | | | | | | | at 2243, nausea/vomiting | | | | | | + +---------+ +------+---+---+ +---------+ +------+---+---+ | New Bag | 08/31/19 | 4 mg | | | | | 15 12:51 | | | | | | PM PDT | | | | +---------+ +------+---+---+ | New Bag | 08/30/19 | 4 mg | | | | | 15 12:03 | | | | | | AM PDT | | | | +---------+ +------+---+---+ +---+---+ | | | +---+---+ + +-------+ +-------+---+---+ | oxyCODONE (immediate release) | Given | 09/01/19 | 10 mg | | | | (ROXICODONE) liquid 5-15 mg 5-15 | | 15 4:25 | | | | | mg, feeding tube, EVERY 3 HOURS | | PM PDT | | | | | NEEDED, Starting Wed08/27/14 | | | | | | | at 1217, Until Wed08/31/14 at | | | | | | | 2243, moderate pain | | | | | | + +-------+ +-------+---+---+ +-------+ +------+---+---+ | Given | 09/01/19 | 5 mg | | | | | 15 1:36 | | | | | | PM PDT | | | | +-------+ +------+---+---+ | Given | 09/01/19 | 5 mg | | | | | 15 12:25 | | | | | | PM PDT | | | | +-------+ +------+---+---+ +---+---+ | | | +---+---+ + +-------+ +------+---+---+ | polyethylene glycol (MIRALAX) | Given | 09/01/19 | 17 g | | | | powder 17 g 17 g, feeding tube, | | 15 8:18 | | | | | DAILY, First dose on [facility] 08/30/14 | | AM PDT | | | | | at 0900, Until Discontinued | | | | | | + +-------+ +------+---+---+ +-------+ +------+---+---+ | Given | 08/31/19 | 17 g | | | | | 15 9:51 | | | | | | AM PDT | | | | +-------+ +------+---+---+ +---+---+ | | | +---+---+ + +-------+ +--------+---+---+ | potassium chloride (KAOCHLOR) | Given | 08/29/19 | 40 mEq | | | | liquid 40 mEq 40 mEq, feeding | | 15 9:35 | | | | | tube, ONCE, 1 dose, [facility] 08/28/14 | | AM PDT | | | | | at 0930 | | | | | | + +-------+ +--------+---+---+ +---+---+ | | | +---+---+ + + + + +--------+---+ | propofol (DIPRIVAN) injection | Rate/Dos | 08/28/19 | 30 | 17.64 | | | 0.5-50 mcg/kg/min | e Change | 15 2:59 | mcg/kg/m | mL/hr | | | 98 kg Dosing weight (rounded to | | PM PDT | in | | | | 0.29-29.4 mL/hr), intravenous, | | | | | | | CONTINUOUS, Starting Wed08/27/14 | | | | | | | at 1515, Until Wed08/27/14 at | | | | | | | 1523 | | | | | | + + + + +--------+---+ +---+---+ | | | +---+---+ + +---------+ + +-------+---+ | propofol (DIPRIVAN) injection | New Bag | 08/29/19 | 25 | 14.7 | | | 30-60 mcg/kg/min | | 15 12:00 | mcg/kg/m | mL/hr | | | 98 kg Dosing weight (rounded to | | PM PDT | in | | | | 17.64-35.28 mL/hr), intravenous, | | | | | | | CONTINUOUS, Starting Wed08/27/14 | | | | | | | at 1530, Until 3/31/15 at | | | | | | | 1529 | | | | | | + +---------+ + +-------+---+ +---------+ + +-------+---+ | New Bag | 08/29/19 | 50 | 29.4 | | | | 15 11:13 | mcg/kg/m | mL/hr | | | | AM PDT | in | | | +---------+ + +-------+---+ | New Bag | 08/29/19 | 50 | 29.4 | | | | 15 9:00 | mcg/kg/m | mL/hr | | | | AM PDT | in | | | +---------+ + +-------+---+ +---+---+ | | | +---+---+ + +-------+ +--------+---+---+ | senna (SENOKOT) liquid 8.8 mg | Given | 09/01/19 | 8.8 mg | | | | 8.8 mg (5 mL), feeding tube, | | 15 8:18 | | | | | TWICE DAILY, First dose on Mon | | AM PDT | | | | | 08/27/14 at 2100, Until | | | | | | | Discontinued | | | | | | + +-------+ +--------+---+---+ +-------+ +--------+---+---+ | Given | 08/31/19 | 8.8 mg | | | | | 15 9:14 | | | | | | PM PDT | | | | +-------+ +--------+---+---+ | Given | 08/31/19 | 8.8 mg | | | | | 15 9:51 | | | | | | AM PDT | | | | +-------+ +--------+---+---+ +---+---+ | | | +---+---+ + +-------+ +-------+---+---+ | simvastatin (ZOCOR) tablet 10 | Given | 08/28/19 | 10 mg | | | | mg 10 mg, feeding tube, EVERY | | 15 9:03 | | | | | EVENING, First dose (after last | | PM PDT | | | | | modification) on 08/27/14 at | | | | | | | 2100, Until Discontinued | | | | | | + +-------+ +-------+---+---+ +---+---+ | | | +---+---+ + +---------+ +---------+---+---+ | sodium phosphate IV 30 mmol 30 | New Bag | 08/29/19 | 30 mmol | | | | mmol, intravenous, ONCE, 1 dose, | | 15 5:03 | | | | | 08/28/14 at 1700 | | PM PDT | | | | + +---------+ +---------+---+---+ +---+---+ | | | +---+---+ documented in this encounter
--- OUTSIDE RECORDS SUMMARY | ~2019-06-05 | XMS | Encounter Summary ---
Demographics + + + | Address | [address] | | | [place] [address] | + + + | Home Phone | | + + + | Preferred Language | Unknown | + + + | Marital Status | | + + + | Advent Affiliation | Unknown | + + + [...] [place] | | | | | [address] | | + + + + + Care Team Providers + +------+ + | Care Data Processing Systems Consultant Name | Role | Phone | + [...] | | tongue (HCC) | | [place] [address] | | | | | Procedures | | Phone: | | | | | [place] OFFICE | | [phone] | | | | | OUTPATIENT | | Fax: | | | | | VISIT 25 | | [phone] | | | | | MINUTES | | | +--------+--------+ + + + + Encounter Details +--------+ + + + + | Date | Type | Department | Care Team | Description | +--------+ + + + + | 08/12/ | Hospital | [facility] | Art Red, | | | 2016 | Encounter | MED [facility] RAD[facility] | [address] | | | | | ONCOLOGY [address] | [place], [place] | | | | | [place], | [address] | | | | | [place] [address] | | | | | | [phone] | | | +--------+ + + + [...] mg by | | 0 | | 10/23/201 | | 12.5 mg tablet | mouth [...] encounter Progress Notes Art Red DO - 08/13/2015 12:00 AM PDTPATIENT: Navi Matias Maxime:08/13/2015MR#: [id number] :1935 Radiation Oncology Follow-up Clinic Note ICD/Diagnosis: 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 Danny Abdullahi M.D. Azar Gonzalez M.D. Spenser Randall M.D. [facility] Chief Complaint/History of Present Illness: Base [...] 27, [address] Danny Abdullahi at [facility]. Final patholo gy confirmed a 2.4 [...] very dry foods. He states that his ta sonya is near normal with the exception of dry foods. He has returned to the ENT service at the [facility] in [place] most recently on May 09, 2015 with where a flexible nasal laryngoscopy procedure was performed. No residual disease was seen on this exam and no mucosal abnormalities were seen. Currently, he has no specific concerns or complaints after his last evaluation at the [facility] Review of Systems: ROS ConstitutionalNormal - Denies lack of appetite, fatigue, fever, night sweats, rigors / chills and change in weight.ROS EyesNormal - Denies blurred vision, double vision and visu al difficulties.ROS ENMTAbnormal - Complains of dysphagia Thick phlem that is difficult to swallow, mouth dryness, oral bleeding and sputum production. Denies ear pain, epistaxis, es ophagitis, problems with hearing and sinusitis.ROS NeckNormal - Denies neck masses, muscle weakness, neck pain, decreased range of motion and swelling of the neck. ROS Integumentary Normal - Denies blistering, bruising, dry skin, pruritus and rash.ROS CardiovascularNormal - Denies arrhythmias, chest pain, dyspnea, edema and palpitations.ROS RespiratoryAbnormal - Complains of cough. Denies dyspnea, hemoptysis and wheezing.ROS GastrointestinalNormal - D enies abdominal pain, constipation, diarrhea, heartburn / dyspepsia, nausea and vomiting.R OS Genitourinary (F)Abnormal - Complains of nocturia. Denies dysuria, frequency, urgency an d urine color change.ROS MusculoskeletalNormal - Denies arthritis, joint pain, muscle weakn ess and decreased range of motion. ROS NeurologicNormal - Denies dizziness, headaches, bernarda r weakness, sensory problems, paralysis, seizure and stroke.ROS PsychiatricNormal - Denies mood swings, depression and euphoria.ROS EndocrineNormal - Denies diabetes, hot flashes an d thyroid disease.ROS Hematologic/LymphaticNormal - Denies easy bruising and tender or enla rged lymph nodes. Medications: ASA 81mg TABLET q.d. Allopurinol 300mg TABLET q.d. Carvedilol 12 mg TABLET b.i.d. Isosorbide mononitrate 30 mg TABLET, CONTROLLED RELEASE q.d. Losartan TABLET q.d. Plavix 75mg TABLET STAT Simvastatin 10mg TABLET q.d. hydrochlorthiazide 25 mg TABLET q.d. Allergies: Oxycodone Physical Exam: Performed on 08/13/2015, 13:16Weight 84.2 kg Temperature 36.5 C (LOW) Pulse 58 / min (LOW) Respiration 16 / min BP107/56 mm(hg) O2 Sat 98 % Pain 0 PE [...] purpur a / ecchymosis. Procedure (flexible laryngoscopy-CPT 83595): Indications: Inadequate visualization with indirect approach The [...] puff his cheeks for visualization of the pir iform sinuses that were found clear. Further advancement of the scope demonstrated the AE f olds, arytenoids, false vocal cords and posterior glottis that were found without lesion or mucosal abnormality and with minimal edema. Visualization of the glottic larynx revealed full abduction/adduction of the true vocal cords. Photos were taken and recorded within the chart. The scope was withdrawn uneventfully. Overall, Navi tolerated the procedure wel l. . Questionnaires: Are you having pain?No Labs: [...] n on August 27, 2014 while at [facility]. The primary lesion was 2.4 [...] to alternate appointments between ENT at the [facility] in [place] in our clinic on a three-month basis moving forward. He states praful t he has an appointment within the next few days in [place] that he plans to reschedule f or 3 months, therefore he will return in January in our clinic for his next appointment w ith flexible nasopharyngoscopy evaluation. He was encouraged to call our clinic with any f urther questions or concerns. Thank you for allowing me to participate in the care of Navi Johnson. If you nikia karma have any questions regarding this evaluation, please do not hesitate to contact me. Art Red D.O., ALIER Radiation Oncologist Department of Radiation Oncology [facility] This note was transcribed using [employer] speech recognition software. As a result, there ma y be unintended for medical and/or spelling errors. Every attempt is made to correct dicta tion. If there are any questions or errors please contact our office. Page 1 of 3 CSN: [id number] signed by Art Red DO at 08/14/2015 6:38 PM Naomi bautista in this encounter Plan [...] MARTINEZ | | | | | | [phone] | | | | | | | | +--------+ + + + + | 03/13/ | Office | Cardiology | Sophie Delacruz, | | | 2019 | Visit | | MD Chivo DIAZ | | | | | | CRISTOFER [place]AO | | | | | | [phone] | | | | | | | | +--------+ + + + + documented as of this encounter Visit Diagnoses Not on filedocumented in this encounter"
--- OUTSIDE RECORDS SUMMARY | ~2019-06-05 | XMS | Encounter Summary ---
Demographics + + + | Address | [address] | | | [place] [address] | + + + | Home Phone [...] Team Providers + +------+ + | Care Chaplaincy Name | Role | Phone | + +------+ + | Cong Freeman MD | PCP | | + +------+ + Encounter Details +--------+ + + + + | Date | Type | Department | Care Team | Description | +--------+ + + + + | 02/12/ | Document-Sc | Health Information | Unknown . | | | 2017 | anned | Services [id number] | | | | | [address] | | | | | | Mailcode: [id number] | | | | | | [facility] | | | | | | [place], [place] | | | | | | [address] | | | | | | [phone] | | | +--------+ + + + [...]
--- OUTSIDE RECORDS SUMMARY | ~2019-06-05 | XMS | Encounter Summary ---
Demographics + + + | Address | [address] | | | [place] [address] | + + + | Home Phone | | + + + | Preferred Language | Unknown | + + + | Marital Status | | + + + | Tenriism Affiliation | Unknown | + + + | Race | Unknown | + + + | Ethnic Group | Unknown | + + + Author + + + | Author | [facility] | | | and [place] | + + + | Organization | 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 Reviewed records: patient had non-ST elevation LA in 2013 and since then he has [...] (A) 06/20/2014 GLUF 125 11/22/2013 EK06/10/[address] [facility] showing normal sinus rhythm. Normal EKG. 03/09/2018 Ordered and reviewed by myself showed sinus bradycardia otherwise normal EKG Last Echo: 08/21/[address] [facility], normal RV size and function EF 65%. RV is danie l size and function. No significant valvular pathology. Last stress test: 09/04/2015 From [place] [place]: Reported with small moderately reversible defect in [...] [place] | | | | | | [address] | | | | | | | | +--------+ + + + + | 03/13/ | Office | Cardiology | Sophie Smith, | | | 2019 | Visit | | MD Chivo DIAZ | | | | | | [place] | | | | | | [address] | | | | | | | | +--------+ + + + + documented as of this encounter Visit Diagnoses + + | Diagnosis | + + | Coronary artery disease involving [place] coronary artery of [place] heart without | | angina pectoris - Primary | + + | Essential hypertension, benign | + + | CKD (chronic kidney disease), stage III (HCC) Chronic kidney disease, Stage III | | (moderate) | + + documented in this encounter
--- OUTSIDE RECORDS SUMMARY | ~2019-06-05 | XMS | Encounter Summary ---
Demographics + + + | Address | [address] | | | [place] [address] | + + + | Home Phone [...] [place] | | | | | [address] | | + + + + + Care Team Providers + +------+ + | Care Security Systems Installer Name | Role | Phone | [...] | Art C, DO | [address] | | | | | base of | [address] | [place], | | | | | tongue (HCC) | [address] | [place] | | | | | Procedures | [place], | [address] | | | | | MRI Neck | [place] [address] | Phone: | | | | | Soft Tissue | Phone: | [phone] | | | | | Only w wo | [phone] | Fax: | | | | | Contrast | Fax: | [phone] | | | | | | [phone] | | +--------+--------+ + + + + [...] | Art C, DO | [address] | | | | | base of | [address] | [place], | | | | | tongue (HCC) | [address] | [place] | | | | | Procedures | [place], | [address] | | | | | MRI Neck | [place] [address] | Phone: | | | | | Soft Tissue | Phone: | [phone] | | | | | Only w wo | [phone] | Fax: | | | | | Contrast | Fax: | [phone] | | | | | | [phone] | | +--------+--------+ + + + + Encounter Details +--------+ + + + + | Date | Type | Department | Care Team | Description | +--------+ + + + + | 10/08/ | Hospital | [facility] | Art Red DO | Cancer of base of | | 2014 | Encounter | MED CTR MRI [address] | [address] | tongue (HCC) | | | | [place], | [place], [place] | | | | | [place] [address] | [address] | | | | | [phone] | | | +--------+ + + + [...] [place] | | | | | | [address] | | | | | | | | +--------+ + + + + | 03/13/ | Office | Cardiology | Sophie Delacruz, | | | 2019 | Visit | | MD [address] | | | | | | [place] | | | | | | [address] | | | | | | | [...]
--- OUTSIDE RECORDS SUMMARY | ~2019-06-05 | XMS | Encounter Summary ---
Demographics + + + | Address | [address] | | | [place] [address] | + + + | Home Phone | | + + + | Preferred Language | Unknown | + + + | Marital Status | | + + + | Restoration Affiliation | Unknown | + + + | Race | Unknown | + + + | Ethnic Group | Unknown | + + + Author + + + | Author | [facility] | | | and [place] | + + + | Organization | [facility] | | | [...] [place] | | | | | [address] | | + + + + + Care Team Providers + +------+ + | Care Client Services Administrator Name | Role | Phone | + [...] Cancer of | Art DO Amie | Bar Manager [address] | | | Required | | base of | [address] | [place] | | | | | tongue (HCC) | [address] | [place], [place] | | | | | [address] | [place], | [address] | | | | | (ICD-9-CM) - | [place] [address] | Phone: | | | | | Cancer of | Phone: | [phone] | | | | | base of | [phone] | Fax: | | | | | tongue (HCC) | Fax: | [phone] | | | | | Procedures | [phone] | | | | | | Speech | | | +--------+ + + + + + Encounter Details +--------+ + + + + | Date | Type | Department | Care Team | Description | +--------+ + + + + | 12/03/ | Hospital | [facility] | Ruy Chaparro | Dysphagia (Primary | | 2015 | Encounter | MED CTR SPEECH | MD Jason [address] | Dx) | | | | THERAPY [address] | [address] [place] | | | | | [place], | [place] [address] | | | | | [place] [address] | [phone] | | | | | [phone] | | | | | | | Michelle Vera | | | | | | M, Speech | | | | | | Pathologist [address] | | | | | [address] [place] | | | | | | [place] [address] | | | | | | [phone] | | | | | | | [...] [place] | | | | | | [address] | | | | | | | | +--------+ + + + + | 03/13/ | Office | Cardiology | Sophie Delacruz, | | | 2019 | Visit | | MD Chivo DIAZ | | | | | | [place] | | | | | | [address] | | | | | | | | +--------+ + + + + documented as of this encounter Visit Diagnoses + + | Diagnosis | + + | Dysphagia - Primary Dysphagia, unspecified | + + documented in this encounter"
--- OUTSIDE RECORDS SUMMARY | ~2019-06-05 | XMS | Encounter Summary ---
Demographics + + + | Address | [address] | | | [place] [address] | + + + | Home Phone [...] [place] | | | | | [address] | | + + + + + Care Team Providers + +------+ + | Care Stenographer Secretary Name | Role | Phone | + [...] Cancer of | Art Holloway DO | Fuel Manager [address] | | | Required | | base of | [address] | [place] | | | | | tongue (HCC) | [address] | [place], [place] | | | | | [address] | [place], | [address] | | | | | (ICD-9-CM) - | [place] [address] | Phone: | | | | | Cancer of | Phone: | [phone] | | | | | base of | [phone] | Fax: | | | | | tongue (HCC) | Fax: | [phone] | | | | | Procedures | [phone] | | | | | | Speech | | | +--------+ + + + + + Encounter Details +--------+ + + + + | Date | Type | Department | Care Team | Description | +--------+ + + + + | 10/03/ | Hospital | [facility] | Art Red DO | Dysphagia (Primary | | 2015 | Encounter | MED CTR SPEECH | [address] | Dx) | | | | THERAPY [address] | [place], [place] | | | | | [place], | [address] | | | | | [place] [address] | | | | | | [phone] | Michelle Vera | | | | | | M, Speech | | | | | | Pathologist [address] | | | | | [address] [place] | | | | | | [place] [address] | | | | | | [phone] | | | | | | | [...] Speech Pathologist - 10/05/2014 10:37 AM PDT [facility] SPE[facility]ERAPY [address] [facility] [address] Speech Therapy Initial Assessment Date: 10/03/2014 Patient Information Patient Name: Navi Johnson Date of : 1935 Age: 79 y.o. History Encounter Diagnoses Code Name Primary? 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) Cardiovascular disease Hearing loss MA (myocardial infarction) (HCC) 2013 HTN (hypertension) Past Surgical History Procedure Laterality Date Knee surgery Right knee Microlaryngoscopy 08/27/2014 Rigid esosphagoscopy 08/27/14 Pharyngectomy and left parcial glossectomy 08/27/14 Allergies Allergen Reactions Oxycodone Prior treatment: Acute hospital setting - within the last sixty days Rehab Precautions [facility] PARTS COUNTER SALES PERSON OP EVAL from 10/03/2014 in [facility] SPEECH THERAPY Rehab Precautions Precautions Hearing [...] modification and oral motor exerc ise education PARTS COUNTER SALES PERSON Treatment PARTS COUNTER SALES PERSON Treatment: patient/caregiver education, oral motor exercise, home [...] been seen by a speech therapist at [facility] who taught the use of compe nsatory [...] the ability to eat and drink . PARTS COUNTER SALES PERSON prescribed a series of individually tailored oral motor exercises for the Pt to perfor m as able during radiation treatment to maintain ROM and strength of jaw, and tongue to assi st with eating and speech. PARTS COUNTER SALES PERSON will see Pt back in two week's time to monitor for tolerance to diet, update on oral motor exercise, and provide education and support. PARTS COUNTER SALES PERSON spoke with sylvia bangura to alert her [...] From: 10/03/14 Certification To: 01/03/15 Treatment Plan/Interventions: 45476 Swallow Evaluation Patient education, oral motor exerices, [...] [place] | | | | | | [address] | | | | | | | | +--------+ + + + + | 03/13/ | Office | Cardiology | Sophie Delacruz, | | | 2019 | Visit | | MD Chivo DIAZ | | | | | | [place] | | | | | | [address] | | | | | | | | +--------+ + + + + documented as of this encounter Visit Diagnoses + + | Diagnosis | + + | Dysphagia - Primary Dysphagia, unspecified | + + documented in this encounter
--- OUTSIDE RECORDS SUMMARY | ~2019-06-05 | XMS | Encounter Summary ---
Demographics + + + | Address | [address] | | | [place] [address] | + + + | Home Phone [...] + | Author | [facility] | | | and [place] | + + + | Organization | [facility] | | | and [...] [place] | | | | | [address] | | + + + + + Care Team Providers + +------+ + | Care Used Equipment Sales Representative Name | Role | Phone | [...] neoplasm of | [address] | | | | | oropharynx, | [address] | [place], | | | | | unspecified | [place], | [place] [address] | | | | | site | [place] [address] | Phone: | | | | | Procedures | Phone: | [phone] | | | | | [place] IV | [phone] | Fax: | | | | | INFUSION, | Fax: | [phone] | | | | | HYDRATION, | [phone] | | | | | | 31-60 [...] + + | 11/22/ | Hospital | [facility] | Art Red DO | Dysphagia; 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
--- OUTSIDE RECORDS SUMMARY | ~2019-06-05 | XMS | Encounter Summary ---
Demographics + + + | Address | [address] | | | [place] [address] | + + + | Home Phone | | + + + | Preferred Language | Unknown | + + + | Marital Status | | + + + | Restoration Affiliation | Unknown | + + + | Race | Unknown | + + + | Ethnic Group | Unknown | + + + Author + + + | Author | [facility] | | | and [place] | + + + | Organization | [facility] | | | [...] [place] | | | | | [address] | | + + + + + Care Team Providers + +------+ + | Care Cco & President Name | Role | Phone | [...] | | tongue (HCC) | | [place] [address] | | | | | Procedures | | Phone: | | | | | [place] OFFICE | | [phone] | | | | | OUTPATIENT | | Fax: | | | | | VISIT 25 | | [phone] | | | | | MINUTES | | | +--------+--------+ + + + + Encounter Details +--------+ + + + + | Date | Type | Department | Care Team | Description | +--------+ + + + + | 08/18/ | Hospital | [facility] | Art Red, DO | | | 2017 | Encounter | MED CTR RADIATION | [address] | | | | | ONCOLOGY [address] | [place] | | | | | [place], | [address] | | | | | [place] [address] | | | | | | [phone] | | | +--------+ + + + [...] encounter Progress Notes Art Red DO - 08/18/2016 12:00 AM PDTPATIENT: Navi Johnson : 1935 DOS: 08/18/2016 Radiation Oncology Follow-up Clinic Note ICD/Diagnosis: 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 Danny Abdullahi M.D. Spenser Randall M.D. Ruy Chaparro M.D. [facility] Chief Complaint/History of Present Illness: Base [...] 27, [address] Danny Abdullahi at [facility]. Fin al pathology confirmed a 2.4 cm [...] returned to the ENT service at the [facility] in [place] most recently on April 15, 2016 with where a flexible nasal laryngoscopy procedure was performed. No residual disease was seen on this exam and no mucosal abnormalities were seen. He states t hat he will return on a six-month basis to the [facility] alternating with my clinic every 3 months. Currently, he has no specific concerns or complaints after his last evalu ation at the [facility] Review of Systems: ROS ConstitutionalNormal - Denies lack of appetite, fatigue, fever, lethargy, malaise, nig ht sweats, rigors / chills and change in weight.ROS HeadNormal - Denies alopecia.ROS EyesNo rmal - Denies blurred vision, double vision, lacrimation, night blindness and visual diffic ulties.ROS ENMTAbnormal - Complains of dysphagia, problems with hearing and mouth dryness. Denies ear pain, epistaxis, oral bleeding, sputum production, altered taste and tinnitus. ROS NeckNormal - Denies neck masses, muscle weakness, neck pain, decreased range of motion and swelling of the neck.ROS IntegumentaryNormal - Denies alopecia, blistering, bruising, d ry skin, nail changes, photosensitivity, pruritus, rash and urticaria.ROS CardiovascularNor mal - Denies arrhythmias, chest pain, dyspnea, edema and palpitations.ROS RespiratoryNormal - Denies cough, dyspnea, hemoptysis and wheezing.ROS GastrointestinalNormal - Denies abdo ag pain, change in bowel habits, constipation, diarrhea, heartburn / dyspepsia, hemateme sis, hematochezia, hemorrhoids, melena / GI bleeding, nausea, pain / cramping and vomiting. ROS Genitourinary (M)Abnormal - Complains of nocturia 1-3 times/night. Denies dysuria, freq uency, hematuria, impotence, incontinence, scrotal swelling, urgency and urine color change .ROS MusculoskeletalAbnormal - Complains of arthritis. Complains of joint pain. Complains of muscle weakness which is mild in nature. Denies bone pain and decreased range of motion. ROS NeurologicNormal - Denies disorientation, dizziness, abnormal gait, headaches, insomnia , memory loss, motor weakness, sensory problems, paralysis, seizure and stroke.ROS Psychiat ricNormal - Denies delusions, hallucinations, mood swings and depression.ROS Endocrine Abn ormal - Complains of thyroid disease. Denies diabetes and hot flashes.ROS Hematologic/Lymph aticNormal - Denies easy bruising and tender or enlarged lymph nodes. Medications: ASA 81mg TABLET q.d. Carvedilol 12.5 mg TABLET q.d. LEVOTHYROXINE SODIUM (50 mcg) TABLET ORAL q.d. Losartan TABLET q.d. Multivitamin Plavix 75mg TABLET STAT Simvastatin 10mg TABLET q.d. Tamsulosin 0.4 mg Vitamin B 12 hydrochlorthiazide 25 mg TABLET q.d. Allergies: Oxycodone Physical Exam: Performed on 08/18/2016, 13:32Weight 84.3 kg Temperature 36.4 C (LOW) Pulse 57 / min (LOW) Respiration 16 / min BP124/64 mm(hg) O2 Sat 97 % Pain 0 [...] purpur a / ecchymosis. Procedure (flexible laryngoscopy-CPT 40206): Indications: Inadequate visualization with indirect approach The [...] dissection on August 27, 2014 while at [facility]. The primary lesion was 2.4 cm with [...] which he tolerated well. Today we reviewed late toxicities of external beam ra diation therapy and reviewed range of motion exercises and lymphedema exercises. Flexible nasopharyngoscopy demonstrated normal tissue today. I will continue to alternate appointme nts between ENT at the [facility] in [place] in our clinic on a three-month basis moving forward. He was encouraged to call our clinic with any further questions or conc erns. Thank you for allowing me to participate in the care of Navi Johnson. If you nikia karma have any questions regarding this evaluation, please do not hesitate to contact me. Art Red D.O., ALIER Radiation Oncologist Department of Radiation Oncology [facility] This note was transcribed using [employer] speech recognition software. As a result, there ma y be unintended for medical and/or spelling errors. Every attempt is made to correct dicta tion. If there are any questions or errors please contact our office. Page 1 of 3 CSN: [id number] signed by Art Red DO at 08/21/2016 6:51 PM Naomi bautista in this encounter Plan [...] [place] | | | | | | [id number] | | | | | | | | +--------+ + + + + | 03/13/ | Office | Cardiology | Sophie Delacruz, | | | 2019 | Visit | | MD Chivo DIAZ | | | | | | [place] | | | | | | [id number] | | | | | | | | +--------+ + + + + documented as of this encounter Visit Diagnoses Not on filedocumented in this encounter"
--- OUTSIDE RECORDS SUMMARY | ~2019-06-05 | XMS | Encounter Summary ---
Demographics + + + | Address | [address] | | | [place] [address] | + + + | Home Phone | | + + + | Preferred Language | Unknown | + + + | Marital Status | | + + + | Christianity Affiliation | Unknown | + + + | Race | Unknown | + + + | Ethnic Group | Unknown | + + + Author + + + | Author | [facility] | | | and [place] | + + + | Organization | [facility] | | | [...] [place] | | | | | [address] | | + + + + + Care Team Providers + +------+ + | Care Records Management Technician Name | Role | Phone | + +------+ + | Ruy Chaparro MD | PCP | | + +------+ + Encounter Details +--------+ + + + + | Date | Type | Department | Care Team | Description | +--------+ + + + + | 11/20/ | Hospital | 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
--- OUTSIDE RECORDS SUMMARY | ~2019-06-05 | XMS | Encounter Summary ---
Demographics + + + | Address | [address] | | | [place] [address] | + + + | Home Phone | | + + + | Preferred Language | Unknown | + + + | Marital Status | | + + + | Adventist Affiliation | NON | + + + [...] Team Providers + +------+ + | Care Jet Worker Name | Role | Phone | + +------+ + | Cong Freeman MD | PCP | | + +------+ + Encounter Details +--------+ + + + + | Date | Type | Department | Care Team | Description | +--------+ + + + + | 02/25/ | Document-Sc | Health Information | Unknown . | | | 2016 | anned | Services [address] | | | | | [address] | | | | | | Mailcode: [id number] | | | | | | [facility] | | | | | | [place], [place] | | | | | | [address] | | | | | | [phone] | | | +--------+ + + + [...]
--- OUTSIDE RECORDS SUMMARY | ~2019-06-05 | XMS | Clinical Summary ---
Demographics + + + | Address | [address] | | | [place] [address] | + + + | Home Phone | | + + + | Preferred Language | Unknown | + + + | Marital Status | | + + + | Muslim Affiliation | Unknown | + + + | Race | Unknown | + + + | Ethnic Group | Unknown | + + + Author + + + | Author | [facility] | | | and [place] | + + + | Organization | [facility] | | [...] [place] | | | | | [address] | | + + + + + Care Team Providers + +------+ + | Care Radar Mechanic Name | Role | Phone | + +------+ + | Angel Lynch DO | PCP | | + +------+ + Allergies + + + + + + | Active Allergy | Reactions | Severity | Noted | Comments | | | | | Date | | + + + + + + | Alendronate | Other (See Comments) | | 11/24/19 | "made my bones | | | | | 19 | ache bad" | + + + + + + | Oxycodone | | | 10/03/19 | | | | | | 15 | | + + + + + + Medications + + + +---------+------+------+-------+ | Medication | Sig | Dispensed | Refills | Star | End | Statu | | | | | | t | Date | s | | | | | | Date | | | + + + +---------+------+------+-------+ | aspirin 81 mg | Take 81 mg by mouth | | 0 | | | Activ | | chewable tablet | Daily. | | | | | e | + + + +---------+------+------+-------+ | isosorbide | Take 60 mg by mouth | | 0 | | | Activ | | mononitrate 60 mg ER | Daily. | | | | | e | | tablet | | | | | | | + + + +---------+------+------+-------+ | losartan (COZAAR) | Take 50 mg by mouth | | 0 | | | Activ | | 50 mg tablet | Daily. | | | | | e | + + + +---------+------+------+-------+ | simvastatin | Take 40 mg by mouth | | 0 | | | Activ | | (ZOCOR) 40 mg tablet | nightly. | | | | | e | + + + +---------+------+------+-------+ | levothyroxine | Take 75 mcg by mouth | | 0 | | | Activ | | (SYNTHROID) 75 mcg | every morning | | | | | e | | tablet | (before breakfast). | | | | | | | | Unsure of dose | | | | | | + + + +---------+------+------+-------+ | tamsulosin | Daily. | | 0 | | | Activ | | (FLOMAX) 0.4 mg CAPS | | | | | | e | + + + +---------+------+------+-------+ | Multiple | Take 1 tablet by | | 0 | | | Activ | | Vitamins-Minerals | mouth Daily. | | | | | e | | (PX MENS | | | | | | | | MULTIVITAMINS PO) | | | | | | | + + + +---------+------+------+-------+ | cyanocobalamin | Take 1,000 mcg by | | 0 | | | Activ | | (VITAMIN B-12) 1000 | mouth Daily. | | | | | e | | MCG tablet | | | | | | | + + + +---------+------+------+-------+ | carvedilol (COREG) | Take 1 tablet by | | 0 | 10/2 | | Activ | | 6.25 mg tablet | mouth 2 times daily | | | 3/20 | | e | | | (with breakfast & | | | 19 | | | | | dinner). | | | | | | + + + +---------+------+------+-------+ Active Problems + + + | Problem | Noted Date | + + + | Encounter for screening for malignant neoplasm of colon | 07/05/2017 | + + + | Occult blood in stools | 07/05/2017 | + + + | Dysphagia | 10/19/2014 | + + + | Squamous cell carcinoma of oropharynx | 10/03/2014 | + + + + + | Cancer Staging: Pathologic: Stage III (T2, N1, cM0) - Signed by | | Spenser Valle MD on 10/03/2014 | + + | Overview: Overview: S/P TORS partial pharnygecomy, TORS with | | partial glossectomy, and neck dissection Overview: Overview: S/P | | TORS partial pharnygecomy, TORS with partial glossectomy, and | | neck dissection | |S/P TORS partial pharnygecomy, TORS with partial glossectomy, and neck dissection | + + + + + | CAD (coronary artery disease), [place] coronary artery | 08/27/2014 | + + + + + | Overview: Overview: | | S/P MS 2013 | | | | Last Assessment & Plan: | | -Per ENT, hold aspirin and clopidogrel | | -Continue carvedilol 6.25 mg BID | + + + + + | Edema of pharynx or nasopharynx | 08/27/2014 | + + + + + | Overview: Last Assessment & Plan: | | After TORS procedures | | -Kept intubated and sedated overnight | | -decadron 8mg q8hrs per ENT ON | | -Cuff leak confirmed, passed SBT, extubated on 08/28/2014 | + + + + + | GERD (gastroesophageal reflux disease) | 08/27/2014 | + + + + + | Overview: Overview: | | S/P [place]ham | + + + + + | HTN (hypertension) | 08/27/2014 | + + + + + | Overview: Last Assessment & Plan: | | -continue home carvedilol 6.25 mg BID | | -hold home HCTZ, losartan, and Isosorbide | | Overview: | | Last Assessment & Plan: | | -continue home carvedilol 6.25 mg BID | | -hold home HCTZ, losartan, and Isosorbide | + + + + + | Anemia | 02/27/2013 | + + + | Benign prostatic hyperplasia | 02/27/2013 | + + + | CKD (chronic kidney disease), stage III | 02/27/2013 | + + + + + | Overview: Last Assessment & Plan: | | Baseline Acetylene Cutter ~1.5 | + + + + + | Erectile dysfunction | 02/27/2013 | + + + | Essential hypertension, benign | 02/27/2013 | + + + | Gout | 02/27/2013 | + + + Resolved Problems + + + + | Problem | Noted | Resolved | | | Date | Date | + + + + | Difficult intubation | 08/28/19 | | | | 15 | 9 | + + + + Encounters +--------+---------+ + + + | Date | Type | Specialty | Care Team | Description | +--------+---------+ + + + | 03/22/ | Office | Cardiology | Sophie Delacruz, | Coronary artery | | 2019 | Visit | | MD | disease involving | | | | | | [place] coronary | | | | | | artery of [place] | | | | | | heart without angina | | | | | | pectoris (Primary | | | | | | Dx); Essential | | | | | | hypertension, | | | | | | benign; CKD (chronic | | | | | | kidney disease), | | | | | | stage III (HCC) | +--------+---------+ + + + from Last 3 Months Immunizations + + + + | Name | Administration Dates | Next Due | + + + + | HEP A, 2 DOSE | 08/24/2011 | | | (ADULT) | | | + + + + | INFLUENZA PF 17 Y OR | 01/29/2011, 03/31/2003 | | | >,QUADRIVALENT | | | | RECOMBINANT | | | + + + + Family History + + +------+ + | Medical History | Relation | Name | Comments | + + +------+ + | Seizures | Father | | | + + +------+ + | Cancer | Mother | | breast | + + +------+ + | Cancer | Sister | | Breast | + + +------+ + + +------+--------+ + | Relation | Name | Status | Comments | + +------+--------+ + | Father | | | | + +------+--------+ + | Mother | | | AAA lungs filled with blood | + +------+--------+ + | Sister | | | | + +------+--------+ + [...] recent travel history available. | + + Last Filed Vital Signs + [...] | | + + + + + Plan of Treatment +--------+ + + + + | Date | Type | Specialty | Care Team | Description | +--------+ + + + + | 12/10/ | Appointment | Radiation Oncology | Art Red DO | | | 2019 | | | [address] | | | | | | [place] | | | | | | [id number] | | | | | | | | +--------+ + + + + | 03/13/ | Office | Cardiology | Sophie Delacruz, | | | 2019 | Visit | | MD [address] | | | | | | [place] | | | | | | [address] | | | | | | | | +--------+ + + + + + + + + + | Health Maintenance | Due Date | Last Done | Comments | + + + + + | Vaccine: | | | | | Dtap/Tdap/Td (1 - | 5 | | | | Tdap) | | | | + + + + + | Vaccine: Zoster (1 | | | | | of 2) | 4 | | | + + + + + | Vaccine: | | | | | Pneumococcal 65+ (1 | 9 | | | | of 2 - PCV13) | | | | + + + + + | Adult Annual | | | | | Wellness Visit | 5 | | | + + + + + | Vaccine: Influenza | | 01/29/2011, 03/31/2003 | | | (#1) | 9 | | | + + + + + Results Not on filefrom Last 3 Months Insurance + +--------+ +--------+ +---------+--------+ | Payer | Benefi | Subscriber | Effect | Phone | Address | Type | | | t Plan | ID | vanessa | | | | | | / | | Dates | | | | | | Group | | | | | | + +--------+ +--------+ +---------+--------+ | [employer] | [place] | [id number] | 05/31/19 | | | Indemn | | | NS | | 17-Pre | | | ity | | | ADMIN | | sent | | | | | | [place] | | | | | | | | [place] | | | | | | + +--------+ +--------+ +---------+--------+ | MEDICARE | MEDICA | [id number] | | [phone] | | Medica | | | RE | | 999-Pr | 5 | | re | | | PART A | | esent | | | | | | AND B | | | | | | + +--------+ +--------+ +---------+--------+ | [employer] | [place] | [id number] | 05/31/19 | [phone] | | Indemn | | | OF | | 15-Pre | 0 | | ity | | | [place] | | sent | | | | | | MDCR | | | | | | | | SUPPL | | | | | | + +--------+ +--------+ +---------+--------+ | MEDICARE | MEDICA | [id number] | 05/31/19 | [phone] | | Medica | | | RE | | 02-Pre | 5 | | re | | | PART A | | sent | | | | | | AND B | | | | | | + +--------+ +--------+ +---------+--------+ | [employer] | [place] | [id number] | 05/31/19 | [phone] | | Indemn | | | OF | | 15-Pre | 0 | | ity | | | [place] | | sent | | | | | | MDCR | | | | | | | | SUPPL | | | | | | + +--------+ +--------+ +---------+--------+ + +--------+ +--------+ + + | Guarantor Name | Accoun | Relation to | Date | Phone | Billing Address | | | t Type | Patient | of | | | | | | | | | | + +--------+ +--------+ + + | Navi Johnson | Person | Self | [birth year] | [address] | | Fojay[place] | al/Fam | | 1935 | [phone] | [place] | | | [place] | | | 1 (Home) | [address] | + +--------+ +--------+ + + | Navi Johnson | Person | Self | [birth year] | [address] | | Polly | al/Fam | | 1935 | [phone] | [place] | | | [place] | | | [place] ([place]) | [address] | + +--------+ +--------+ + + Advance Directives + + + + + | Type | Date Recorded | Patient | Explanation | | | | Shellfish Manager | | + + + + + | Power of | | | | | Derrick Worker | | | | + + + + + | Advance | 10/08/2014 10:01 | | | | Directive | AM | | | + + + + +
--- OUTSIDE RECORDS SUMMARY | ~2019-06-05 | XMS | Encounter Summary ---
Demographics + + + | Address | [address] | | | [place] [address] | + + + | Home Phone [...] + + + + + | Allie Alex | ECON | [address] | | | | | [place] | | | | | [address] | | + + + + + Care Team Providers + +------+ + | Care Loan Counselor Name | Role | Phone | + +------+ + PCP | Unavailable | + +------+ + Reason for Visit +--------+ + | Reason | Comments | +--------+ + | Other | | +--------+ + Encounter Details +--------+ + + + + | Date | Type | Department | Care Team | Description | +--------+ + + + + | 11/12/ | Telephone | [facility] | Javyharjit Holloway DO | Other | | 2018 | | [facility] | [address] | | | | | ONCOLOGY CLINIC [address] | [place], [place] | | | | | [address] [place] | [address] | | | | | [place] [address] | | | | | | [phone] | | | +--------+ + + + [...] [place] | | | | | | [address] | | | | | | | | +--------+ + + + + | 03/13/ | Office | Cardiology | Sophie Delacruz, | | | 2019 | Visit | | MD [address]ivo [address] | | | | | | [place] | | | | | | [address] | | | | | | | | +--------+ + + + + documented as of this encounter Visit Diagnoses Not on filedocumented in this encounter"
--- OUTSIDE RECORDS SUMMARY | ~2019-06-05 | XMS | Encounter Summary ---
Demographics + + + | Address | [address] | | | [place] [address] | + + + | Home Phone [...] | Organization | [facility] | | | and [...] [place] | | | | | [address] | | + + + + + Care Team Providers + +------+ + | Care Production Finisher Name | Role | Phone | + [...] [place], [place] | | | | | [place], | [address] | | | | | [place] [address] | | | | | | [phone] | | | +--------+ + + + [...] [place] | | | | | | [address] | | | | | | | | +--------+ + + + + | 03/13/ | Office | Cardiology | Sophie Delacruz, | | | 2019 | Visit | | MD [address] | | | | | | [place] | | | | | | [address] | | | | | | | | +--------+ + + + + documented as of this encounter Visit Diagnoses Not on filedocumented in this encounter"
--- OUTSIDE RECORDS SUMMARY | ~2019-06-05 | XMS | Encounter Summary ---
Demographics + + + | Address | [address] | | | [place] [address] | + + + | Home Phone | | + + + | Preferred Language | Unknown | + + + | Marital Status | | + + + | Yarsanism Affiliation | Unknown | + + + [...] [place] | | | | | [address] | | + + + + + Care Team Providers + +------+ + | Care Manager Relationship Name | Role | Phone | + [...] | | tongue (HCC) | | [place] [address] | | | | | Procedures | | Phone: | | | | | [place] OFFICE | | [phone] | | | | | OUTPATIENT | | Fax: | | | | | VISIT 25 | | [phone] | | | | | MINUTES | | | +--------+--------+ + + + + Encounter Details +--------+ + + + + | Date | Type | Department | Care Team | Description | +--------+ + + + + | 08/12/ | Hospital | [facility] | Art Red, | | | 2016 | Encounter | MED [facility] RAD[facility]ATION | [address] | | | | | ONCOLOGY [address] | [place], [place] | | | | | [place], | [address] | | | | | [place] [address] | | | | | | [phone] | | | +--------+ + + + [...] 08/13/2015 12:00 AM PDTPATIENT: Navi Matias Maxime:08/13/2015MR#: [id number] :1935 Radiation Oncology Follow-up Clinic Note ICD/Diagnosis: 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 Danny Abdullahi M.D. Azar Gonzalez M.D. Spenser Randall M.D. [facility] Chief Complaint/History of Present Illness: Base [...] 27, [address] Danny Abdullahi at [facility]. Final patholo gy confirmed a [...] returned to the ENT service at the [facility] in [place] most recently on May 09, 2015 with where a flexible nasal laryngoscopy procedure was performed. No residual disease was seen on this exam and no mucosal abnormalities were seen. Currently, he has no specific concerns or complaints after his last evaluation at the [facility] Review of Systems: ROS ConstitutionalNormal - [...] purpur a / ecchymosis. 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 The primary lesion was 2.4 [...] to alternate appointments between ENT at the [facility] in [place] in our clinic on a three-month basis moving forward. He states praful t he has an appointment within the next few days in [place] that he plans to reschedule f or [...] ALIER Radiation Oncologist Department of Radiation Oncology [facility] This note was transcribed using [employer] speech recognition software. As a result, there ma y be unintended for medical and/or spelling errors. Every attempt is made to correct dicta tion. If there are any questions or errors please contact our office. Page 1 of 3 CSN: [id number] signed by Art Red DO at 08/14/2015 [...] [place] | | | | | | [id number] | | | | | | | | +--------+ + + + + | 03/13/ | Office | Cardiology | Sophie Delacruz, | | | 2019 | Visit | | MD [address]ivo DIAZ | | | | | | [place] | | | | | | [id number] | | | | | | | | +--------+ + + + + documented as of this encounter Visit Diagnoses Not on filedocumented in this encounter"
--- OUTSIDE RECORDS SUMMARY | ~2019-06-05 | XMS | Encounter Summary ---
Demographics + + + | Address | [address] | | | [place] [address] | + + + | Home Phone | | + + + | Preferred Language | Unknown | + + + | Marital Status | | + + + | Samaritan Affiliation | NON | + + + | Race | White | + + + | Ethnic Group | Not or | + + + Author + + + | Author | [facility] | + + + | Organization | [facility] | + + + | Address | Unknown | + + + | Phone | Unavailable | + + + Support + + +---------+ + | Name | Relationship | Address | Phone | + + +---------+ + | Kofia Alex | ECON | Unknown | | + + +---------+ + Care Team Providers + +------+ + | Care Independent Crop Consultant Name | Role | Phone | [...] Head and Neck | MD Jessy [address] | | | | | Surgery Services at | [facility] | | | | | [address] | [place], [place] | | | | | [address] | [address] | | | | | Mailcode: PV01 | [phone] | | | | | [facility] | | | | | | [place], [place] | | | | | | [address] | | | | | | [phone] | | | +--------+ + + + [...]
--- OUTSIDE RECORDS SUMMARY | ~2019-06-05 | XMS | Encounter Summary ---
Demographics + + + | Address | [address] | | | [place] [address] | + + + | Home Phone | | + + + | Preferred Language | Unknown | + + + | Marital Status | | + + + | Adventism Affiliation | Unknown | + + + [...] [place] | | | | | [address] | | + + + + + Care Team Providers + +------+ + | Care As400 Operator Name | Role | Phone | [...] base of | [address] | [place] | | | | | tongue (HCC) | [place], | [place], | | | | | | [place] [address] | [place] [address] | | | | | | Phone: | Phone: | | | | | | [phone] | [phone] | | | | | | Fax: | Fax: | | | | | | [phone] | [phone] | +--------+ + + + + + Encounter Details +--------+---------+ + + + | Date | Type | Department | Care Team | Description | +--------+---------+ + + + | 10/08/ | Office | [facility] | Art Red DO | Carcinoma of | | 2015 | Visit | MED [facility] ONCOLOGY | [address] [facility] | oropharynx (HCC) | | | | THERAPY [address] | [place] | (Primary Dx) | | | | [place], | [address] | | | | | [place] [address] | | | | | | [phone] | Ann Marie Villegas, | | | [...] From: 10/08/14 Certification To: 01/07/15 Treatment Plan/Interventions: 88329 OT Evaluation, 99898 Manual Therapy, 51582 Therapeutic Exercises Ann Marie Villegas OT Patient Name: Navi Johnson/: 1935/ nn Marie Villegas OT - 10/08/2014 1:40 PM PDT [facility] THERAPY OT OP [address] [place] [address] Occupational Therapy Initial Assessment Date: 10/08/2014 Patient [...] of tongue (HCC) Cardiovascular disease Hearing loss NM (myocardial infarction) (HCC) 2013 HTN (hypertension) Past Surgical History Procedure Laterality Date Knee surgery Right knee Microlaryngoscopy 08/27/2014 Rigid esosphagoscopy 08/27/14 Pharyngectomy and left parcial glossectomy 08/27/14 Allergies Allergen Reactions Oxycodone Rehab Precautions [facility] INTERACTIVE MEDIA DIRECTOR OP EVAL from 10/03/2014 in [facility] SPEECH THERAPY Rehab Precautions Precautions [...] oropharynx CA 08/12. 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
--- OUTSIDE RECORDS SUMMARY | ~2019-06-05 | XMS | Encounter Summary ---
Demographics + + + | Address | [address] | | | [place] [address] | + + + | Home Phone [...] [place] | | | | | [address] | | + + + + + Care Team Providers + +------+ + | Care Section Crews Activities Clerk Name | Role | Phone | [...] [place], [place] | | | | | [place], | [address] | | | | | [place] [address] | | | | | | [phone] | | | +--------+ + + + [...] [place] | | | | | | [phone] | | | | | | | | +--------+ + + + + | 03/13/ | Office | Cardiology | Sophie Delacruz, | | | 2019 | Visit | | MD Chivo DIAZ | | | | | | [place] | | | | | | [phone] | | | | | | | | +--------+ + + + + documented as of this encounter Visit Diagnoses Not on filedocumented in this encounter"
--- OUTSIDE RECORDS SUMMARY | ~2019-06-05 | XMS | Encounter Summary ---
Demographics + + + | Address | [address] | | | [place] [address] | + + + | Home Phone [...] [place] | | | | | [address] | | + + + + + Care Team Providers + +------+ + | Care Mutton Puncher Name | Role | Phone | + +------+ + PCP | Unavailable | + +------+ + Encounter Details +--------+ + + + + | Date | Type | Department | Care Team | Description | +--------+ + + + + | 07/16/ | [facility] | [facility] | | | | 1998 | Encounter | MED CTR SLEEP | | | | | | [address] | | | | | | [place] | | | | | | [address] | | | | | | [phone] | | | +--------+ + + + [...] [place] | | | | | | [address] | | | | | | | | +--------+ + + + + | 03/13/ | Office | Cardiology | Sophie Delacruz, | | | 2019 | Visit | | MD [address]ivo D[address]Z | | | | | | [place] | | | | | | [address] | | | | | | | | +--------+ + + + + documented as of this encounter Visit Diagnoses Not on filedocumented in this encounter"
--- OUTSIDE RECORDS SUMMARY | ~2019-06-05 | XMS | Encounter Summary ---
Demographics + + + | Address | [address] | | | [place] [address] | + + + | Home Phone [...] [place] | | | | | [address] | | + + + + + Care Team Providers + +------+ + | Care Slab Grinder Name | Role | Phone | + [...] Other | | 2014 | | [facility] | Jason Holloway MD [address] | | | | | ONCOLOGY CLINIC [address] [place] | | | | | [address] [place] | [place] [address] | | | | | [place] [address] | [phone] | | | | | [phone] | | | +--------+ + + + [...] [place] | | | | | | [address] | | | | | | | | +--------+ + + + + | 03/13/ | Office | Cardiology | Sophie Delacruz, | | | 2020 | Visit | | MD Chivo DIAZ | | | | | | [place] | | | | | | [address] | | | | | | | | +--------+ + + + + documented as of this encounter Visit Diagnoses Not on filedocumented in this encounter"
--- OUTSIDE RECORDS SUMMARY | ~2019-06-05 | XMS | Encounter Summary ---
Demographics + + + | Address | [address] | | | [place] [address] | + + + | Home Phone | | + + + | Preferred Language | Unknown | + + + | Marital Status | | + + + | Anabaptism Affiliation | Unknown | + + + | Race | Unknown | + + + | Ethnic Group | Unknown | + + + Author + + + | Author | [facility] | | | and [place] | + + + | Organization | [facility] | | | [...] [place] | | | | | [address] | | + + + + + Care Team Providers + +------+ + | Care Blue Leather Sorter Name | Role | Phone | + [...] Cancer of | Art Holloway DO | Corn Detasseler Machine Operator [address] | | | Required | | base of | [address] | [place] | | | | | tongue (HCC) | [address] | [place], [place] | | | | | [address] | [place], | [address] | | | | | (ICD-9-CM) - | [place] [address] | Phone: | | | | | Cancer of | Phone: | [phone] | | | | | base of | [phone] | Fax: | | | | | tongue (HCC) | Fax: | [phone] | | | | | Procedures | [phone] | | | | | | Speech | | | +--------+ + + + + + Encounter Details +--------+ + + + + | Date | Type | Department | Care Team | Description | +--------+ + + + + | 10/18/ | Hospital | [facility] | Spenser Valle | Dysphagia (Primary | | 2015 | Encounter | MED CTR SPEECH | MD Jason [address] | Dx) | | | | THERAPY [address] | [address] [place] | | | | | [place], | [place] [address] | | | | | [place] [address] | [phone] | | | | | [phone] | | | | | | | Michelle Vera | | | | | | M, Speech | | | | | | Pathologist [address] | | | | [address] [place] | | | | | | [place] [address] | | | | | | [phone] | | | | | | | [...] Speech Pathologist - 10/19/2014 3:01 PM PDT [facility] SPEECH THERAPY [address] [place] [address] Speech Therapy Daily Treatment Note Date: 10/18/2014 Patient Information Patient Name: Navi Johnson Date of : 1935 Age: 79 y.o. Encounter Diagnoses Code Name Primary? 787.20 Dysphagia Yes Date of Onset: 08/27/14 Referring Provider: Spenser Valle MD Rehab Precautions [facility] INDUSTRIAL TECHNOLOGY TEACHER OP EVAL from 10/03/2014 in [facility] SPEECH THERAPY Rehab Precautions Precautions Hearing impairment, Vision impairment Rehab Learning Style Office Visit from 10/08/2014 in [facility] THERAPY OT OP [facility] INDUSTRIAL TECHNOLOGY TEACHER OP E ANTONY from 10/03/2014 in [facility] SPEECH THERAPY Learning Style Patient's Optimum [...] of oral musculature and strength of swallowing. INDUSTRIAL TECHNOLOGY TEACHER provid ed an exercise regimen and took him through each of the exercises (effortful swallow, ariel , tongue lateralization. INDUSTRIAL TECHNOLOGY TEACHER also educated on the importance of drinking water. Next appt sc heduled for mid way through radiation treatment, as this is often when dysphagia begins occu r. Pt and are compliant with treatment regimen. Next Visit: Swallow eval of varied textures, diet texture modification and oral motor exerc ise education INDUSTRIAL TECHNOLOGY TEACHER Treatment INDUSTRIAL TECHNOLOGY TEACHER Treatment: patient/caregiver education, oral motor exercise, home [...] [place] | | | | | | [address] | | | | | | | | +--------+ + + + + | 03/13/ | Office | Cardiology | Sophie Delacruz, | | | 2019 | Visit | | MD Chivo DIAZ | | | | | | [place] | | | | | | [phone] | | | | | | | | +--------+ + + + + documented as of this encounter Visit Diagnoses + + | Diagnosis | + + | Dysphagia - Primary Dysphagia, unspecified | + + documented in this encounter
--- OUTSIDE RECORDS SUMMARY | ~2019-06-05 | XMS | Encounter Summary ---
Demographics + + + | Address | [address] | | | [place] [address] | + + + | Home Phone | | + + + | Preferred Language | Unknown | + + + | Marital Status | | + + + | Restoration Affiliation | Unknown | + + + | Race | Unknown | + + + | Ethnic Group | Unknown | + + + Author + + + | Author | [facility] | | | and [place] | + + + | Organization | [facility] | | | and [place] | + + + | Address | Unknown | + + + | Phone | Unavailable | + + + Support + + + + + | Name | Relationship | Address | Phone | + + + + + | Allie Johnson | ECON | [address] | | | | | [place] | | | | | [address] | | + + + + + Care Team Providers + +------+ + | Care Licensed Weigher Name | Role | Phone | + [...] [place], [place] | | | | | [place], | [address] | | | | | [place] [address] | | | | | | [phone] | | | +--------+ + + + [...] [place] | | | | | | [address] | | | | | | | | +--------+ + + + + | 03/13/ | Office | Cardiology | Sophie Delacruz, | | | 2019 | Visit | | MD Chivo DIAZ | | | | | | [place] | | | | | | [address] | | | | | | | | +--------+ + + + + documented as of this encounter Visit Diagnoses Not on filedocumented in this encounter"
--- OUTSIDE RECORDS SUMMARY | ~2019-06-05 | XMS | Encounter Summary ---
Demographics + + + | Address | [address] | | | [place] [address] | + + + | Home Phone | | + + + | Preferred Language | Unknown | + + + | Marital Status | | + + + | Pentecostal Affiliation | NON | + + + [...] Providers + +------+ + | Care Guest Service Aide Name | Role | Phone | + +------+ + | Cong Freeman MD | PCP | | + +------+ + Encounter Details +--------+ + + + + | Date | Type | Department | Care Team | Description | +--------+ + + + + | 08/25/ | Document-Sc | Health Information | Other, Faculty | | | 2017 | anned | Services [address] | [phone] | | | | | [address] | | | | | | Mailcode: [id number] | | | | | | [facility] | | | | | | [place], [place] | | | | | | [address] | | | | | | [phone] | | | +--------+ + + + [...]
--- OUTSIDE RECORDS SUMMARY | ~2019-06-05 | XMS | Encounter Summary ---
Demographics + + + | Address | [address] [facility] | | | [place] [address] | + + + | Home Phone [...] [place] | | | | | [address] | | + + + + + Care Team Providers + +------+ + | Care Pulp Machine Operator Name | Role | Phone [...] | Cancer of | Art HollowayDO | Ping Pong Table Assembler [address] | | | Required | | base of | [address] | [place] | | | | | tongue (HCC) | [address] | [place], [place] | | | | | [address] | [place], | [address] | | | | | (ICD-9-CM) - | [place] [address] | Phone: | | | | | Cancer of | Phone: | [phone] | | | | | base of | [phone] | Fax: | | | | | tongue (HCC) | Fax: | [phone] | | | | | Procedures | [phone] | | | | | | Speech | | | +--------+ + + + + + Encounter Details +--------+ + + + + | Date | Type | Department | Care Team | Description | +--------+ + + + + | 11/16/ | Hospital | [facility] | Ruy Chaparro | No Show | | 2015 | Encounter | MED CTR SPEECH | MD Jason [address] | | | | | THERAPY [address] | [address] [place] | | | | | [place], | [place] [address] | | | | | [place] [address] | [phone] | | | | | [phone] | | | | | | | Michelle Vera | | | | | | M, Speech | | | | | | Pathologist [address] | | | | [address] [place] | | | | | | [place] [address] | | | | | | [phone] | | | | | | | [...] [place] | | | | | | [address] | | | | | | | | +--------+ + + + + | 03/13/ | Office | Cardiology | Sophie Delacruz, | | | 2020 | Visit | | MD Chivo DIAZ | | | | | | [place] | | | | | | [address] | | | | | | | | +--------+ + + + + documented as of this encounter Visit Diagnoses Not on filedocumented in this encounter"
--- OUTSIDE RECORDS SUMMARY | ~2019-06-05 | XMS | Encounter Summary ---
Demographics + + + | Address | [address] [facility] [facility] | | | [place] [address] | + + + | Home Phone [...] [place] | | | | | [address] | | + + + + + Care Team Providers + +------+ + | Care Learning Disabilities Resource Teacher Name | Role | Phone | [...] | | tongue (HCC) | | [place] [address] | | | | | Procedures | | Phone: | | | | | [place] OFFICE | | [phone] | | | | | OUTPATIENT | | Fax: | | | | | VISIT 25 | | [phone] | | | | | MINUTES | | | +--------+--------+ + + + + Encounter Details +--------+ + + + + | Date | Type | Department | Care Team | Description | +--------+ + + + + | 08/18/ | Hospital | [facility] | Art Red, DO | | | 2017 | Encounter | MED CTR RADIATION | [address] | | | | | ONCOLOGY [address] | [place] | | | | | [place], | [address] | | | | | [place] [address] | | | | | | [phone] | | | +--------+ + + + [...] Randall M.D. Ruy Chaparro M.D. [facility] Chief Complaint/History of Present Illness: Base of [...] 27, [address] Danny Abdullahi at [facility]. Fin al pathology confirmed a 2.4 [...] returned to the ENT service at the [facility] in [place] most recently on April 15, 2016 with where a flexible nasal laryngoscopy procedure was performed. No residual disease was seen on this exam and no mucosal abnormalities were seen. He states t hat he will return on a six-month basis to the [facility] alternating with my clinic every 3 months. Currently, he has no specific concerns or complaints after his last evalu ation at the [facility] Review of Systems: ROS ConstitutionalNormal - [...] purpur a / ecchymosis. 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 He was encouraged to call our clinic with any further questions or conc erns. Thank you for allowing me to participate in the care of Navi Johnson. If you nikia karma have any questions regarding this evaluation, please do not hesitate to contact me. Art Red D.O., ALIER Radiation Oncologist Department of Radiation Oncology [facility] This note was transcribed using [employer] speech recognition software. As a result, there ma y be unintended for medical and/or spelling errors. Every attempt is made to correct dicta tion. If there are any questions or errors please contact our office. Page 1 of 3 CSN: [id number] signed by Art Red DO at 08/21/2016 [...] [place] | | | | | | [id number] | | | | | | | | +--------+ + + + + | 03/13/ | Office | Cardiology | Sophie Delacruz, | | | 2019 | Visit | | MD Chivo DIAZ | | | | | | [place] | | | | | | [address] | | | | | | | | +--------+ + + + + documented as of this encounter Visit Diagnoses Not on filedocumented in this encounter"
--- OUTSIDE RECORDS SUMMARY | ~2019-06-05 | XMS | Encounter Summary ---
Demographics + + + | Address | [address] | | | [place] [address] | + + + | Home Phone | | + + + | Preferred Language | Unknown | + + + | Marital Status | | + + + | Moravian Affiliation | Unknown | + + + [...] [place] | | | | | [address] | | + + + + + Care Team Providers + +------+ + | Care Director Of Adult Epilepsy Name | Role | Phone | + [...] Cancer of | Art Holloway DO | Psychiatry Instructor [address] | | | Required | | base of | [address] | [place] | | | | | tongue (HCC) | [address] | [place], [place] | | | | | [address] | [place], | [address] | | | | | (ICD-9-CM) - | [place] [address] | Phone: | | | | | Cancer of | Phone: | [phone] | | | | | base of | [phone] | Fax: | | | | | tongue (HCC) | Fax: | [phone] | | | | | Procedures | [phone] | | | | | | Speech | | | +--------+ + + + + + Encounter Details +--------+ + + + + | Date | Type | Department | Care Team | Description | +--------+ + + + + | 11/19/ | Hospital | [facility] | Ruy Chaparro | Dysphagia (Primary | | 2015 | Encounter | MED CTR SPEECH | MD Jason [address] | Dx) | | | | THERAPY [address] | [address] [place] | | | | | [place], | [place] [address] | | | | | [place] [address] | [phone] | | | | | [phone] | | | | | | | Michelle Vera | | | | | | M, Speech | | | | | | Pathologist [address] | | | | [address] [place] | | | | | | [place] [address] | | | | | | [phone] | | | | | | | [...] Progress Notes Michelle Mcnally, Speech Pathologist - 11/19/2014 11:56 AM PDT [facility] SPE[facility]CH [facility]ERAPY [address] [facility] [address] Speech Therapy Daily Treatment Note Date: 11/19/2014 Patient Information Patient Name: Navi Johnson Date of : 1935 Age: 79 y.o. Encounter Diagnoses Code Name Primary? 787.20 Dysphagia Yes Date of Onset: 08/27/14 Referring Provider: Ruy Chaparro MD Rehab Precautions [facility] SCIENTIFIC PHOTOGRAPHER OP EVAL from 10/03/2014 in [facility] SPEECH THERAPY Rehab Precautions Precautions Hearing impairment, Vision impairment Rehab Learning Style Office Visit from 10/08/2014 in [facility] THERAPY OT OP [facility] SCIENTIFIC PHOTOGRAPHER OP E ANTONY from 10/03/2014 in [facility] SPEECH THERAPY Learning Style Patient's Optimum Learning Style reading, performance of task performance of task Pain Assessment Pain Scale Used: FLACC Pain Rating Pre Assessment: 1 Pain Rating During Assessment: 10 Location: throat when swallowing Today's Treatment Patient Name: Navi Johnson/: 1935/ Start Time: 904 Stop time: 949 Duration: 45 minutes Timed Treatment Codes: 0 minutes # of Speech Visits to Date: 3 Visit Summary: Pt seen for session with in out patient rehab. Pt reported that he has had significant decrease in ability to swallow over the last 1.5 weeks. He reported that he has been drinking 3 Boost drinks a day, but his goal is 7. he is taking liquids only at this time b/c he feels like his throat "is closing off." Also reported pain on swallow "05/09." He used a spit bucket for his saliva as he doesn't want to swallow d/t pain. Noncompliant wi th swallow exercises d/t pain. SCIENTIFIC PHOTOGRAPHER educated on the importance of swallowing and swallow exer cises to maintain strength, and prevent dysphagia exacerbation during and post tx. SCIENTIFIC PHOTOGRAPHER also explained and provided handouts on a full liquid diet. SCIENTIFIC PHOTOGRAPHER referred him to the furniture stainer as he looked visibly thinner and reported he has lost weight. Pt needs doctor consult to help m anage the pain on swallow more efficiently. After the session, SCIENTIFIC PHOTOGRAPHER called the furniture stainer and spoke with Dr. Red's RN about need for pain management in him continuing to consume food PO , prevent malnutrition, and prevent disuse atrophy of pharyngeal muscles. Pt also reported e xtreme dysguesia and occ nausea. These factors have contributed to a lack of appetite. SCIENTIFIC PHOTOGRAPHER w ill follow up with Pt next visit to provide more education and instruction of swallow exerci ses and diet texture modification. Next Visit: Swallow eval of varied textures, diet texture modification and oral motor exerc ise education SCIENTIFIC PHOTOGRAPHER Treatment SCIENTIFIC PHOTOGRAPHER Treatment: patient/caregiver education, oral motor exercise, home [...] Primary Functional Goal 1 Status Comment: Pt has not been doing his exercises d/t odynophag ia. Goal Motor Speech STG Motor Speech: Pt will demonstrate adequate ROM of jaw and lingual structures after perf orming oral motor exercises daily as prescribed during radiation treatment to maintain abili ty to chew and speak. Motor Speech LTG Status: New LTG Motor Speech: Pt will report that he is able to return to dysphagia advanced diet textu res and thin liquids with no swallowing difficulty in 2/3 meals/ day. Electronically signed by: Michelle Mcnally SPEECH PATHO, 11/19/2014 11:56 Patient Name: Navi Johnson/: 1935/ documented in this encounter Plan of Treatment +--------+ + + + + | Date | Type | Specialty | Care Team | Description | +--------+ + + + + | 12/10/ | Appointment | Radiation Oncology | Art Red, | | | 2019 | | | [address] | | | | | | [place] | | | | | | [id number] | | | | | | | | +--------+ + + + + | 03/13/ | Office | Cardiology | Sophie Delacruz, | | | 2019 | Visit | | MD Chivo DIAZ | | | | | | [facility] [place] | | | | | | [address] | | | | | | | | +--------+ + + + + documented as of this encounter Visit Diagnoses + + | Diagnosis | + + | Dysphagia - Primary Dysphagia, unspecified | + + documented in this encounter
--- OUTSIDE RECORDS SUMMARY | ~2019-06-05 | XMS | Encounter Summary ---
Demographics + + + | Address | [address] | | | [place] [address] | + + + | Home Phone | | + + + | Preferred Language | Unknown | + + + | Marital Status | | + + + | Taoism Affiliation | Unknown | + + + | Race | Unknown | + + + | Ethnic Group | Unknown | + + + Author + + + | Author | [facility] | | | and [place] | + + + | Organization | [facility] | | [...] [place] | | | | | [address] | | + + + + + Care Team Providers + +------+ + | Care Design Engineering Technician Name | Role | Phone | [...] | | ONCOLOGY CLINIC [address] | [place], [place] | | | | | [address] [place] | [address] | | | | | [place] [address] | | | | | | [phone] | | | +--------+ + + + [...] [place] | | | | | | [address] | | | | | | | | +--------+ + + + + | 03/13/ | Office | Cardiology | Sophie Delacruz, | | | 2019 | Visit | | MD Chivo DIAZ | | | | | | [place] | | | | | | [address] | | | | | | | | +--------+ + + + + documented as of this encounter Visit Diagnoses Not on filedocumented in this encounter"
--- OUTSIDE RECORDS SUMMARY | ~2019-06-05 | XMS | Clinical Summary ---
Demographics + + + | Address | [address] | | | [place] [address] | + + + | Home Phone [...] [place] | | | | | [address] | | + + + + + Care Team Providers + +------+ + | Care Concrete Bucket Hooker Name | Role | Phone | + [...] + + | CAD (coronary artery disease), [place] coronary artery | 08/27/2014 | + + + + + | Overview: Overview: | | S/P [place] 2013 | | | | Last Assessment [...] Last Assessment & Plan: | | Baseline Director Nicu ~1.5 | + + + + + [...] involving | | | | | | [place] coronary | | | | | | artery of [place] | | | | | | heart [...] [place] | | | | | | [address] | | | | | | | | +--------+ + + + + | 03/13/ | Office | Cardiology | Sophie Delacruz, | | | 2019 | Visit | | MD Chivo DIAZ | | | | | | [place] | | | | | | [address] | | | | | | | [...] +---------+--------+ | [employer] ADMIN | [place] | [id number] | 05/31/19 | | | Indemn | | | NS | | 17-Pre | | | ity | | | ADMIN | | sent | | | | | | [place] | | | | | | | | [place] | | | | | | + +--------+ +--------+ +---------+--------+ | MEDICARE | MEDICA | [id number] | | [phone] | | Medica | | | RE | | 999-Pr | 5 | | re | | | PART A | | esent | | | | | | AND B | | | | | | + +--------+ +--------+ +---------+--------+ | [employer] | [place] | [id number] | 05/31/19 | [phone] | | Indemn | | | OF | | 15-Pre | 0 | | ity | | | [place]I | | sent | | | | | | MDCR | | | | | | | | SUPPL | | | | | | + +--------+ +--------+ +---------+--------+ | MEDICARE | MEDICA | [id number] | 05/31/19 | [phone] | | Medica | | | RE | | 02-Pre | 5 | | re | | | PART A | | sent | | | | | | AND B | | | | | | + +--------+ +--------+ +---------+--------+ | [employer] | [place] | [id number] | 05/31/19 | [phone] | | Indemn | | | OF | | 15-Pre | 0 | | ity | | | [place]I | | sent | | | | [...] Fojayde | al/Fam | | 1935 | [phone] | [place] | | | [place] | | | 1 (Home) | [address] | + +--------+ +--------+ + + | Navi Johnson | Person | Self | [birth year] | [address] | | Polly | al/Fam | | 1935 | [phone] | [place] | | | [place] | | | [place] ([place]) | [address] | + +--------+ +--------+ + + Advance Directives + + + + + | Type | Date Recorded | Patient | Explanation | | | | Bag Maker | | + + + + + | Power of | | | | | Field Sales Consultant | | | | + + + + + | Advance | 10/08/2014 10:01 | | | | Directive | AM | | | + + + + +
--- OUTSIDE RECORDS SUMMARY | ~2019-06-05 | XMS | Encounter Summary ---
Demographics + + + | Address | [address] | | | [place] [address] | + + + | Home Phone | | + + + | Preferred Language | Unknown | + + + | Marital Status | | + + + | Protestant Affiliation | Unknown | + + + [...] | + + + + + | lAlie Johnson | ECON | [address] | | | | | [place] | | | | | [address] | | + + + + + Care Team Providers + +------+ + | Care Network Director Name | Role | Phone | [...] Required | | of | [address] | Services [address] | | | | | oropharynx | [place] [address] | | | | | (HCC) | [place], [place] | [place], | | | | | | [address] | [place] [address] | | | | | | Phone: | Phone: | | | | | | [phone] | [phone] | | | | | | Fax: | Fax: | | | | | | [phone] | [phone] | +--------+ + + + + + [...] [address] | | | | | | [place], | | | | | | [place] [address] | | | | | | [phone] | | | +--------+ + + + [...] [place] | | | | | | [id number] | | | | | | | | +--------+ + + + + | 03/13/ | Office | Cardiology | Sophie Delacruz, | | | 2019 | Visit | | MD Chivo DIAZ | | | | | | [place] | | | | | | [address] | | | | | | | [...]
--- OUTSIDE RECORDS SUMMARY | ~2019-06-05 | XMS | Encounter Summary ---
Demographics + + + | Address | [address] | | | [place] [address] | + + + | Home Phone | | + + + | Preferred Language | Unknown | + + + | Marital Status | | + + + | Sabianism Affiliation | Unknown | + + + [...] [place] | | | | | [address] | | + + + + + Care Team Providers + +------+ + | Care Front End Wheel Loader Operator Name | Role | Phone | [...] | | ONCOLOGY CLINIC [address] | [place], [place] | | | | | [address] | [address] | | | | | [place] [address] | | | | | | [phone] | | | +--------+ + + + [...] [place] | | | | | | [address] | | | | | | | | +--------+ + + + + | 03/13/ | Office | Cardiology | Sophie Delacruz, | | | 2019 | Visit | | MD Chivo DIAZ | | | | | | [place] | | | | | | [address] | | | | | | | | +--------+ + + + + documented as of this encounter Visit Diagnoses Not on filedocumented in this encounter"
--- OUTSIDE RECORDS SUMMARY | ~2019-06-05 | XMS | Encounter Summary ---
Demographics + + + | Address | [address] [facility] [address] | | | [place] [address] | + + + | Home Phone [...] [place] | | | | | [address] | | + + + + + Care Team Providers + +------+ + | Care Laundry Pricing Clerk Name | Role | Phone | [...] | | ONCOLOGY CLINIC [address] | [place], [place] | | | | | [address] [place] | [address] | | | | | [place] [address] | [phone] | | | | | [phone] | | | +--------+ + + + [...] [place] | | | | | | [address] | | | | | | | | +--------+ + + + + | 03/13/ | Office | Cardiology | Sophie Delacruz, | | | 2020 | Visit | | MD Chivo DIAZ | | | | | | [place] | | | | | | [address] | | | | | | | | +--------+ + + + + documented as of this encounter Visit Diagnoses Not on filedocumented in this encounter"
--- OUTSIDE RECORDS SUMMARY | ~2019-06-05 | XMS | Encounter Summary ---
Demographics + + + | Address | [address] [facility] [address] | | | [place] [address] | + + + | Home Phone | | + + + | Preferred Language | Unknown | + + + | Marital Status | | + + + | Orthodox Affiliation | Unknown | + + [...] [place] | | | | | [address] | | + + + + + Care Team Providers + +------+ + | Care Cellophane Casting Machine Repairer Name | Role | Phone | [...] | | ONCOLOGY CLINIC [address] | [place], [place] | | | | | [address] [place] | [address] | | | | | [place] [address] | | | | | | [phone] | | | +--------+ + + + [...] [place] | | | | | | [address] | | | | | | | | +--------+ + + + + | 03/13/ | Office | Cardiology | Sophie Delacruz, | | | 2019 | Visit | Rosemarie DIAZ | | | | | | [place] | | | | | | [address] | | | | | | | | +--------+ + + + + documented as of this encounter Visit Diagnoses Not on filedocumented in this encounter"
--- OUTSIDE RECORDS SUMMARY | ~2019-06-05 | XMS | Encounter Summary ---
Demographics + + + | Address | [address] | | | [place] [address] | + + + | Home Phone [...] [place] | | | | | [address] | | + + + + + Care Team Providers + +------+ + | Care Staff Attorney Name | Role | Phone | + [...] Cancer of | Art Holloway DO | Adding Machine Mechanic [address] | | | Required | | base of | [address] | [place] | | | | | tongue (HCC) | [address] | [place], [place] | | | | | [address] | [place], | [address] | | | | | (ICD-9-CM) - | [place] [address] | Phone: | | | | | Cancer of | Phone: | [phone] | | | | | base of | [phone] | Fax: | | | | | tongue (HCC) | Fax: | [phone] | | | | | Procedures | [phone] | | | | | | Speech | | | +--------+ + + + + + Encounter Details +--------+ + + + + | Date | Type | Department | Care Team | Description | +--------+ + + + + | 10/29/ | Hospital | [facility] | Spenser Valle | Dysphagia (Primary | | 2015 | Encounter | MED CTR SPEECH | MD Jason [address] | Dx) | | | | THERAPY [address] | [address] [place] | | | | | [place], | [place] [address] | | | | | [place] [address] | [phone] | | | | | [phone] | | | | | | | Michelle Vera | | | | | | M, Speech | | | | | | Pathologist [address] | | | | [address] [place] | | | | | | [place] [address] | | | | | | [phone] | | | | | | | [...] Speech Pathologist - 10/30/2014 4:51 PM PDT [facility]CH [facility]ERAPY [address] [facility] [address] Speech Therapy Daily Treatment Note Date: 10/29/2014 Patient Information Patient Name: Navi Johnson Date of : 1935 Age: 79 y.o. Encounter Diagnoses Code Name Primary? 787.20 Dysphagia Yes Date of Onset: 08/27/14 Referring Provider: Spenser Valle MD Rehab Precautions [facility] EVENT MARKETING ASSISTANT OP EVAL from 10/03/[address] [facility] SPEECH THERAPY Rehab Precautions Precautions Hearing impairment, Vision impairment Rehab Learning Style Office Visit from 10/08/[address] [facility] THERAPY OT OP [facility] EVENT MARKETING ASSISTANT OP E ANTONY from 10/03/[address] [facility] SPEECH THERAPY Learning Style Patient's [...] palate. Pt reported mor e dry mouth. EVENT MARKETING ASSISTANT rec magic mouthwash and frequent oral care as well as re-educated on the pu rpose of doing swallow and jaw exercises to maintain strength and ROM to enable swallowing. EVENT MARKETING ASSISTANT also educated on the importance of drinking water. Pt and are compliant with gia tment regimen. EVENT MARKETING ASSISTANT to follow Pt during radiation treatment. Next Visit: Swallow eval of varied textures, diet texture modification and oral motor exerc ise education EVENT MARKETING ASSISTANT Treatment EVENT MARKETING ASSISTANT Treatment: patient/caregiver education, oral motor exercise, [...] [place] | | | | | | [id number] | | | | | | | | +--------+ + + + + | 03/13/ | Office | Cardiology | Sophie Delacruz, | | | 2019 | Visit | | MD [address] | | | | | | [place] | | | | | | [address] | | | | | | | | +--------+ + + + + documented as of this encounter Visit Diagnoses + + | Diagnosis | + + | Dysphagia - Primary Dysphagia, unspecified | + + documented in this encounter
--- OUTSIDE RECORDS SUMMARY | ~2019-06-05 | XMS | Encounter Summary ---
Demographics + + + | Address | [address] | | | [place] [address] | + + + | Home Phone [...] [place] | | | | | [address] | | + + + + + Care Team Providers + +------+ + | Care Education And Outreach Coordinator Name | Role | Phone | [...] | Malignant | Art Holloway DO | Patent Leather Sorter [address] | | | Required | Rehabilitatio | neoplasm of | [address] | [place] | | | | n | base of | [address] | [place], [place] | | | | | tongue (HCC) | [place], | [address] | | | | | | [place] [address] | Phone: | | | | | | Phone: | [phone] | | | | | | [phone] | Fax: | | | | | | Fax: | [phone] | | | | | | [phone] | | +--------+ + + + + [...] base of | [address] | [address] | | | | | tongue (HCC) | [place], | [place], | | | | | | [place] [address] | [place] [address] | | | | | | Phone: | Phone: | | | | | | [phone] | [phone] | | | | | | Fax: | Fax: | | | | | | [phone] | [phone] | +--------+ + + + + + [...] [address] | [place], [place] | ([facility]) (Primary Dx) | | | | [place], | [address] | | | | | [place] [address] | | | | | | [phone] | | | +--------+ + + + [...] [place] | | | | | | [address] | | | | | | | | +--------+ + + + + | 03/13/ | Office | Cardiology | Sophie Delacruz, | | | 2019 | Visit | | MD [address] | | | | | | [place] | | | | | | [address] | | | | | | | [...]
--- OUTSIDE RECORDS SUMMARY | ~2019-06-05 | XMS | Encounter Summary ---
Demographics + + + | Address | [address] | | | [place] [address] | + + + | Home Phone [...] [place] | | | | | [address] | | + + + + + Care Team Providers + +------+ + | Care Paper Supervisor Name | Role | Phone | [...] | +--------+ + + + + | 07/12/ | Telephone | [facility] | Art Red DO | Other | | 2016 | | MED [facility] MED[facility] | [address] | | | | | ONCOLOGY CLINIC [address] | [place], [place] | | | | | [address] [place] | [address] | | | | | [facility] [place] [address] | | | | | | [phone] | | | +--------+ + + + [...] [place] | | | | | | [address] | | | | | | | | +--------+ + + + + | 03/13/ | Office | Cardiology | Sophie Delacruz, | | | 2019 | Visit | | MD Chivo DIAZ | | | | | | [place] | | | | | | [address] | | | | | | | | +--------+ + + + + documented as of this encounter Visit Diagnoses + + | Diagnosis | + + | 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
--- OUTSIDE RECORDS SUMMARY | ~2019-06-05 | XMS | Encounter Summary ---
Demographics + + + | Address | [address] | | | [place] [address] | + + + | Home Phone | | + + + | Preferred Language | Unknown | + + + | Marital Status | | + + + | Presybeterian Affiliation | NON | + + + | Race | White | + + + | Ethnic Group | Not or | + + + Author + + + | Author | [facility] | + + + | Organization | [facility] | + + + | Address | Unknown | + + + | Phone | Unavailable | + + + Support + + +---------+ + | Name | Relationship | Address | Phone | + + +---------+ + | Kofia Alex | ECON | Unknown | | + + +---------+ + Care Team Providers + +------+ + | Care Deputy Probation Officer Name | Role | Phone | + +------+ + | Cong Freeman MD | PCP | | + +------+ + Encounter Details +--------+ + + + + | Date | Type | Department | Care Team | Description | +--------+ + + + + | 12/08/ | Document-Sc | Health Information | Unknown . | | | 2018 | anned | Services [id number] | | | | | | [address] | | | | | | Mailcode: [id number] | | | | | | [facility] | | | | | | [place], [place] | | | | | | [address] | | | | | | [phone] | | | +--------+ + + + [...]
--- OUTSIDE RECORDS SUMMARY | ~2019-06-05 | XMS | Encounter Summary ---
Demographics + + + | Address | [address] | | | [place] [address] | + + + | Home Phone [...] [place] | | | | | [address] | | + + + + + Care Team Providers + +------+ + | Care Swatch Paster Name | Role | Phone | + [...] base of | [address] | [address] | | | | | tongue (HCC) | [place], | [place], | | | | | | [place] [address] | [place] [address] | | | | | | Phone: | Phone: | | | | | | [phone] | [phone] | | | | | | Fax: | Fax: | | | | | | [phone] | [phone] | +--------+ + + + + + Encounter Details +--------+---------+ + + + | Date | Type | Department | Care Team | Description | +--------+---------+ + + + | 10/15/ | Office | [facility] | Spenser Valle | Carcinoma of | | 2015 | Visit | MED CNT ONCOLOGY | MD Jason [address] | oropharynx (HCC) | | | | THERAPY [address] | [address] [place] | (Primary Dx) | | | | [place], | [place] [address] | | | | | [place] [address] | [phone] | | | | | [phone] | | | | | | | [...] Villegas, OT - 10/15/2014 9:54 AM PDT [facility] THERAPY OT OP [address] [place] [address] Occupational Therapy Daily Treatment Note Date: 10/15/2014 Patient Information Patient Name: Navi Johnson Date of : 1935 Age: 79 y.o. History Encounter Diagnoses Code Name Primary? 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
--- OUTSIDE RECORDS SUMMARY | ~2019-06-05 | XMS | Encounter Summary ---
Demographics + + + | Address | [address] | | | [place] [address] | + + + | Home Phone [...] + + + | Author | [facility] | + + + | Organization | [facility] | + + + | Address | Unknown | + + + | Phone | Unavailable | + + + Support + + +---------+ + | Name | Relationship | Address | Phone | + + +---------+ + | Kofia Alex | ECON | Unknown | | + + +---------+ + Care Team Providers + +------+ + | Care Continuous Mining Machine Operator Name | Role | Phone [...] | | | | Hospital Admitting | [place], [place] | BASE OF TONGUE | | | | Desk Located on the | [phone] | CANCER AND LEFT | | | | 9th floor | [phone] | SELECTIVE NECK | | | | [place], [place] | | DISSECTION Path X 8 | | | | [address] | | | +--------+---------+ + + + [...] follow-up appointment with Dr. Abdullahi [facility] September [facility] at [...] and Neck Surgery Mail Code PV01 [address] [place] [address] documented in thi s encounter Discharge Instructions Instructions Yuliana Lancaster - 08/31/2014 Additional Instructions: Patient discharged from hospital with the accompany of his to his home in [facility]. Patient left with all his belongings, [...] of this encounter Progress Notes Ti Montano CCC-BODY SANDER - 08/31/2014 1:50 PM PDT INPATIENT ENT [...] SOCIAL HISTORY: The patient currently lives in [place], [place] with his Allie. 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 Pt to discharge with TFs via [facility] for primary nutrition/hydration. [facility] TRACY RIDLEY-[facility] [address] Mailcode: Kpv13 [place] [address] hRadha mariscal, RN - 08/31/2014 1:41 PM PDTPrecepting student RN and assisted with both discharge note & instructions. I concur with discharge summary & instructions. Reviewed AVS with patient a nd concur with assessments and teaching. Ti Munson CCC-BODY SANDER - 08/30/2014 4:30 PM PDT INPATIENT ENT [...] Pt v estela hesitant to work with BODY SANDER this afternoon, but ultimately agreed to do [...] SOCIAL HISTORY: The patient currently lives in [facility] [place], [place] with his Allie. 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 Noted lingual [...] tomorrow am prior to disch arge. TR[facility]Y [facility] [address]F [address] Mailcode: v13 [place] [address] Danny Greenberg MD - 08/30/2014 9:09 AM KAYI examined the patient on daily rounds and agree with the as sessment and plan as documented in the resident's note. DANNY ABDULLAHI MD [facility] [address] [facility] Mailcode: Kpv13 [place], [place] [id number] Shaun Ham PA-C - 08/30/2014 9:09 AM PDT Head and Neck Surgery Inpatient Daily Progress Note: Author: SHAUN DELATORRE PA-C Attending Physician: Danny Abdullahi MD, * Primary Care Provider: Cong Freeman MD Admission Date: 08/27/2014 SKYLER JOHNSON, [id number] Hospital Day #3 ID: Mr. Skyler Johnson [...] SHAUN DELATORRE PA-C Otolaryngology-Head and Neck Surgery [facility] Pager [phone] oLora engle, [facility]-BODY SANDER - 08/30/2014 8:21 AM PDT INPATIENT ENT [...] is ready and willing to work with BODY SANDER this morning. Would like to DC without feeding tube. PAIN SCALES: Worst pain level yesterday: 0 (per patient report) Pain at the start of the session: 0 Pain at the end of the session: 5 DIETARY STATUS: Full Liquids started yesterday - mostly taking sips of water only. TFs via DHT. SOCIAL HISTORY: The patient currently lives in [facility] with his Allie. 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 Noted lingual [...] sips of Boost via straw x4, h fci-tsp of apple sauce x2. Oral phase was [...] Reviewed basic rehabilitation course and role of BODY SANDER. Reviewed all aspiration precautions a nd dysphagia [...] per our usual protocol. Lora Grande MS, [facility]-BODY SANDER Speech-Language Pathologist [facility] Dept. of Otolaryngology, PV-[address] [place] [address] Pager: [phone] signed by Lora Grande CCC-BODY SANDER at 08/30/2014 8:57 AM Steph Rosas CCC-BODY SANDER - 08/29/2014 11:17 AM [facility]: SUBJECTIVE: Skyler Johnson [...] is ready and willing to work with BODY SANDER this morning. PAIN SCALES: Worst pain level yesterday: 0 Pain at the start of the session: 0 Pain at the end of the session: 3 DIETARY STATUS: Current diet: The patient is currently NPO with DHT in place for all nutrition/hydration/me ds pending swallow evaluation. SOCIAL HISTORY: The patient currently lives in [facility], [place] with his Allie. 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 Noted lingual [...] Reviewed basic rehabilitation course and role of BODY SANDER. Reviewed all aspiration precautions a nd dysphagia [...] stay per our protocol. Steph Trejo M.S., CCC-BODY SANDER Speech-Language Pathologist [facility] Otolaryngology, Head & Neck Surgery [facility] Shaun Ham PA-C - 08/29/2014 8:53 AM PDT . Head and Neck Surgery Inpatient Daily Progress Note: Author: SHAUN DELATORRE PA-C Attending Physician: Danny Abdullahi MD, * Primary Care Provider: Cong Freeman MD Admission Date: 08/27/2014 SKYLER JOHNSON, [id number] Hospital Day #2 ID: Mr. Skyler Johnson [...] SHAUN DELATORRE PA-C Otolaryngology-Head and Neck Surgery [facility] Pager [phone] Galen Mijares M D,PhD - 08/28/2014 4:10 [...] an SpO2 95-100% with supplemental oxygen by AR. The tube exchanger was removed after 10 minutes. Galen Mijares MD,PhD - 08/28/2014 3:26 PM PDTFormatting of this note might be different from t nuha original. Cardiovascular Intensive Care Unit Team Progress Note CVICU D1 Assigned #[id number] ICU Admission Reason Most Recent Value ICU [...] old male with hx of CAD s/p MT in 2013, HTN, CKD, and hx of [...] ICU intubated and sedated . Mr. Johnson's MT in 2013 was medically managed and his [...] Difficult intubation Cardiovascular CAD (coronary artery disease), [place] coronary artery Overview S/P MT 2013 Current Assessment & Plan -Per ENT, [...] kidney disease) Current Assessment & Plan Baseline Morphologist ~1.5 Digestive GERD (gastroesophageal reflux disease) Overview [...] Role Pager Danny Abdullahi MD Admitting Provider [id number] Daryn Finney MD ICU PM Attending 50049 Danny Jaffe MD ICU Day Attending 93740 FAST HUG Feeding: NPO Analgesia: Acetaminophen, oxycodone, hydromorphone Sedation: NA Thromboprophylaxis: SCDs Head of Bed: > 30 degrees Ulcer Prophylaxis: famotidine Glycemic Control: insulin infusion Author:GALEN KEENAN MD,PhD [address] [address] Dontrell Friend MD - 08/28/2014 8:58 AM PDT Cardiovascular Intensive Care Unit Attending Progress Note CVICU D1 Assigned #[id number] ICU Admission Reason Most Recent Value ICU [...] old male with hx of CAD s/p MT in 2013, HTN, CKD, and hx of [...] ICU intubated and sedated . Mr. Johnson's MT in 2013 was medically managed and his [...] passes SBT. With history of CAD and MT, will continue ASA 81 mg and switch from low intensity statin to high intensity (atorvastatin 80). Hospital Problems Priority Head/Neck Airway edema Difficult intubation Cardiovascular CAD (coronary artery disease), [place] coronary artery HTN (hypertension) Respiratory/Chest Respiratory insufficiency Pulmonary edema Genitourinary CKD (chronic kidney disease) Digestive GERD (gastroesophageal reflux disease) Other Post-operative pain Service ENT [12] Admitting provider and ICU treatment team members Provider Role Pager Danny Abdullahi MD Admitting Provider [id number] Daryn Finney MD ICU PM Attending 62441 Danny Jaffe MD ICU Day Attending [phone] I have spent a total of 95 minutes in the direct care and management of this patient who is critically ill independent of any time spent teaching or performing any separately billable procedures. I reviewed the documented findings, all data and the recent imaging available. Author:DANNY JAFFE MD [address] [address] Shaun Ham PA-C - 08/28/2014 8:37 AM PDT Head and Neck Surgery Inpatient Daily Progress Note: Author: SHAUN DELATORRE PA-C Attending Physician: Danny Abdullahi MD, * Primary Care Provider: Cong Freeman MD Admission Date: 08/27/2014 SKYLER JOHNSON, [id number] Hospital Day #1 ID: Mr. Skyler Johnson [...] SHAUN DELATORRE PA-C Otolaryngology-Head and Neck Surgery [facility] Pager [phone] documented in this encounter Plan of Treatment [...] [facility] | [address] | [place], [place] | | | LIZZ ESPARZA OF [place] | [facility] | [address] | | | TESTS | | | [...] [facility] | [address] | [place], [place] | | | LIZZ ESPARZA OF CARE | [facility] | [address] | | | TESTS | | | [...] (H) | 60 - 99 mg/dL | [facility] - | | | GLUCOSE, | [...] [facility] | [address] | [place], [place] | | | LIZZ ESPARZA OF [facility] | [address] | [address] | | | TESTS | | | [...] | | | LABORATORY | | | SWEDISH | | | SERVICES, | | | [...] equation recommended by the National | SERVICES, [facility] | | Kidney Disease Education Program. Estimated [...] | + + + + + | [facility] | [address] | [place] [address] | | | [facility], [facility] | [address] | | | + [...] [facility] | [address] | [place], [place] | | | [place] POINT OF CARE | [address] | [address] | | | TESTS | | | [...] + + + | H[facility]Y [facility] | [address] | [place], [place] | | | [place] POINT OF CARE | [address] | [address] | | | TESTS | | | [...] [facility] | [address] | [place], [place] | | | [place] POINT OF CARE | [address] | [address] | | | TESTS | | | [...] - [facility] | [address] | [place], [place] | | | [place] POINT OF CARE | [address] | [address] | | | TESTS | | | [...] LABORATORY | [address] | [place] [address] | | | SERVICES, CORE | PARK [...] | | | LABORATORY | | | SWEDISH | | | SERVICES, | | | [...] | + + + + + | [facility] [email or web address] | [address] | [place] [address] | | | SERVICES, CORE | MARINA [...] | | | LABORATORY | | | SWEDISH | | | SERVICES, | | | [...] the MDRD equation recommended by the | [facility] | | National Kidney Disease Education Program. [...] [facility] | [address] | [place] [address] | | | SERVICES, MATY | PARK [...] | + + + + + | [facility] | [address] | [place] [address] | | | SERVICES, CORE | MARINA [...] [facility] | [address] | [place], [place] | | | [place] POINT OF CARE | [address] | [address] | | | TESTS | | | [...] - PEDRO | [address] | [place], [place] | | | [facility] | [address] | [address] | | | TESTS | | | [...] | | | LABORATORY | | | SWEDISH | | | SERVICES, | | | [...] the MDRD equation recommended by the | [facility] | | National Kidney Disease Education [...] | + + + + + | [facility] | [address] | [place] [address] | | | MATY HIGGINBOTHAM | MARINA [...] (H) | 60 - 99 mg/dL | [facility] - | | | GLUCOSE, | [...] [facility] | [address] | [place], [place] | | | [place] POINT OF [facility] | [address] | [address] | | | TESTS | | | [...] [facility] | [address] | [place], [place] | | | ILZZ [place]ZA OF [place] | [facility] | [address] | | | TESTS | | | [...] PEDRO | [address] | [place], [place] | | | LIZZ [place]ZA OF [place] | [facility] | [address] | | | TESTS | | | [...] (H) | 60 - 99 mg/dL | [facility] - | | | GLUCOSE, | [...] PEDRO | [address] | [place], [place] | | | LIZZ ESPARZA OF [facility] | [address] | [address] | | | TESTS | | | [...] [facility] | [address] | [place] [address] | | | SERVICES, CORE | PARK [...] | | | LABORATORY | | | SWEDISH | | | SERVICES, | | | [...] | + + + + + | [facility] | [address] | [place] [address] | | | SERVICES, CORE | MARINA [...] [facility] | [address] | [place] [address] | | | SERVICES, MAYT | [address] | | | + [...] [facility] | [address] | [place], [place] | | | [place] POINT OF CARE | [address] | [address] | | | TESTS | | | [...] [facility] | [address] | [place], [place] | | | LIZZ ESPARZA OF CARE | [address] | [address] | | | TESTS | | | [...] [facility] | [address] | [place], [place] | | | [place] POINT OF CARE | [address] | [address] | | | TESTS | | | [...] + | [facility] | [address] [facility] [email or web address] [address] | [place], [place] | | | [place] POINT OF CARE | [address] | [address] | | | TESTS | | | [...] [facility] | [address] | [place], [place] | | | LIZZ ESPARZA OF CARE | [address] | [address] | | | TESTS | | | [...] [facility] | [address] | [place], [place] | | | [place] POINT OF CARE | [address] | [address] | | | TESTS | | | [...] [facility] | [address] | [place], [place] | | | [place] POINT OF CARE | [address] | [address] | | | TESTS | | | [...] + + + | H[facility]Y [facility] | [address] | [place], [place] | | | [place] POINT OF CARE | [address] | [address] | | | TESTS | | | [...] [facility] | [address] | [place], [place] | | | [place] POINT OF CARE | [address] | [address] | | | TESTS | | | [...] [facility] | [address] | [place] [address] | | | SERVICES, CORE | PARK [...] | | | LABORATORY | | | SWEDISH | | | SERVICES, | | | [...] | + + + + + | [facility] | [address] | [place] [address] | | | SERVICES, CORE | MARINA [...] PEDRO | [address] | [place], [place] | | | LIZZ [facility] [place] | [address] | [address] | | | TESTS | | | [...] PEDRO | [address] | [place], [place] | | | LIZZ ESPARZA OF CARE | [facility] | [address] | | | TESTS | | | [...] (H) | 60 - 99 mg/dL | [facility] - | | | GLUCOSE, | [...] [facility] | [address] | [place], [place] | | | LIZZ ESPARZA OF CARE | [facility] | [address] | | | TESTS | | | [...] PEDRO | [address] | [place], [place] | | | LIZZ [place] | [facility] | [address] | | | TESTS | | | [...] HARDY [facility] | [address] | [place], [place] | | | V[facility] | [address] | [address] | | | TESTS | | | | + + + + + X-RAY PORTABLE CHEST 1 VIEW (08/28/2014 8:30 AM PDT) + + + + + + | Component | Value | Ref Range | Performed | Pathologist | | | | | At | Signature | + + + + + + | X-RAY | EXAM: RI CHEST 1 VIEW | | | | [...] [facility] | [address] | [place], [place] | | | [facility] POINT OF CARE | [address] | [address] | | | TESTS | | | [...] | [facility] | [address] | [place], [place] | | | [place] POINT OF CARE | [address] | [address] | | | TESTS | | | [...] [facility] | [address] | [place], [place] | | | LIZZ [facility] [place] | [address] | [address] | | | TESTS | | | [...] [facility] | [address] | [place], [place] | | | V[place] POINT OF CARE | [address] | [address] | | | TESTS | | | [...] [facility] | [address] | [place], [place] | | | V[place] POINT OF CARE | [address] | [address] | | | TESTS | | | [...] [facility] | [address] | [place], [place] | | | LIZZ ESPARZA OF CARE | [address] | [address] | | | TESTS | | | [...] [facility] | [address] | [place], [place] | | | [facility] POINT OF CARE | [address] | [address] | | | TESTS | | | [...] | + + + + + | [facility] | [address] | [place] [address] | | | NEFTALY, MATY | MARINA [...] | | | LABORATORY | | | SWEDISH | | | SERVICES, | | | [...] | + + + + + | [facility] | [address] | [place] [address] | | | SERVICES, CORE | PARK [...] | + + + + + | [facility] | [address] | [place] [address] | | | SERVICES, CORE | MARINA [...] [facility] | [address] | [place], [place] | | | LIZZ ESPARZA OF [place] | [facility] | [address] | | | TESTS | | | [...] - [facility] | [address] | [place], [place] | | | [place] [facility]INT OF CARE | [address] | [address] | | | TESTS | | | [...] [facility] | [address] | [place] [address] | | | SERVICES, CORE | PARK [...] PEDRO | [address] | [place], [place] | | | [facility] | [facility] | [address] | | | TESTS | | | [...] | | | LABORATORY | | | SWEDISH | | | SERVICES, | | | [...] | + + + + + | [facility] | [address] | [place] [address] | | | SERVICES, CORE | MARINA [...] + + + + | X-RAY | STUDY:RI CHEST 1 VIEW | | | | [...] DEPT OF | [address] | [place], [place] | | | CARDIOLOGY | [address] | [address] | | + + + + + [...] - [facility] | [address] | [place], [place] | | | LIZZ ESP[facility]ZA [facility] | [facility] | [address] | | | TESTS | | | [...] | + + + + + | [facility] | [address] | [place] [address] | | | SERVICES, CORE | PARK [...] [facility] | [address] | [place] [address] | | | SERVICES, CORE | PARK [...] | | | LABORATORY | | | SWEDISH | | | SERVICES, | | | [...] | + + + + + | [facility] | [address] | [place] [address] | | | NEFTALY, MATY | MARINA [...] [facility] | [address] | [place], [place] | | | ABBI ESPARZA [facility] | [facility] | [address] | | | TESTS | | | [...] [facility] | [address] | [place] [address] | | | SERVICES, | [address] [...] [facility] | [address] | [place] [address] | | | SERVICES, | [address] [...] | | | | | | Grade: F9Awirhme: | | | | | | Positive [...] Oropharynx: | | | | | | aY4Faredpsm Lymph | | | | | | Nodes (pN)Regional Lymph | | | | | | Nodes (pN): Oropharynx | | | | | | and Hypopharynx: | | | | | | [id number] of regional | | | | | [...] cm. | | | | | | Fur Liner | | | | | | sections [...] nodes. | | | | | | Fur Liner of | | | | | | [...] marginsA6, | | | | | | in store marketing representative posterior | | | | | [...] 2A:F1-2, | | | | | | in store marketing representative of | | | | | [...] | + + + + + | [facility] | [address] | [place] [address] | | | PATHOLOGY | [address] [...]
--- OUTSIDE RECORDS SUMMARY | ~2019-06-05 | XMS | Encounter Summary ---
Demographics + + + | Address | [address] | | | [place] [address] | + + + | Home Phone | | + + + | Preferred Language | Unknown | + + + | Marital Status | | + + + | Uatsdin Affiliation | NON | + + + [...] Providers + +------+ + | Care Auto Wheel Alignment Specialist Name | Role | Phone | [...] + + | 08/27/ | Hospital | [facility] [address] | Danny Abdullahi | | | 2015 - | Encounter | [place] Mailcode: | MD Jessy [address] [facility] | | | | | [id number] Dylan | [facility] | | | 08/31/ | | [place], | [place], [place] | | | 2015 | | [place] [address] | [address] | | | | | [phone] | [phone] | | | | | | | [...] follow-up appointment with Dr. Abdullahi at the [place] [facility] on September 06 at [...] and Neck Surgery Mail Code PV01 [address] [place] [address] documented in thi s encounter Discharge Instructions Instructions Yuliana Lancaster - 08/31/2014 Additional Instructions: Patient discharged from hospital with the accompany of his to his home in [facility]. Patient left with all his belongings, scripts, [...] of this encounter Progress Notes Ti Montano, CESAR-FARM TRUCK DRIVER - 08/31/2014 1:50 PM PDT INPATIENT ENT [...] SOCIAL HISTORY: The patient currently lives in [place], [place] with his Allie. 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 He reports that he has recently been [...] [facility] the [facility] TRACY [place] [id number] [facility] Mailcode: Kpv13 [place], [place] [id number] Radha Jiménez RN - 08/31/2014 1:41 PM PDTPrecepting student RN and assisted with both discharge note & instructions. I concur with discharge summary & instructions. Reviewed AVS with patient a nd concur with assessments and teaching. Ti Munson CCC-FARM TRUCK DRIVER - 08/30/2014 4:30 PM PDT INPATIENT ENT [...] Pt matheus palmer hesitant to work with FARM TRUCK DRIVER this afternoon, but ultimately agreed to do [...] SOCIAL HISTORY: The patient currently lives in [place] with his Allie. 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 Noted lingual [...] tomorrow am prior to disch arge. TRACY RIDLEY-[address] Mailcode: Kpv[address] [place] [id number] Danny Greenberg MD - 08/30/2014 9:09 AM PDTI examined the patient on daily rounds and agree with the as sessment and plan as documented in the resident's note. DANNY ABDULLAHI MD [address] Mailcode: [place] [phone] haun Delatorre PA-C - 08/30/2014 9:09 AM PDT Head and Neck Surgery Inpatient Daily Progress Note: Author: SHAUN DELATORRE PA-C Attending Physician: Danny Abdullahi MD, * Primary Care Provider: Cong Freeman MD Admission Date: 08/27/2014 SKYLER LIMON, [id number] Hospital Day #3 ID: Mr. Skyler Limon [...] SHAUN DELATORRE PA-C Otolaryngology-Head and Neck Surgery [facility] [place] Pager [phone] oLora engle, [facility]-FARM TRUCK DRIVER - 08/30/2014 8:21 AM [facility] INPATIENT ENT SPEECH PATHOLOGY NOTE: HISTORY: Skyler [...] is ready and willing to work with FARM TRUCK DRIVER this morning. Would like to DC without feeding tube. PAIN SCALES: Worst pain level yesterday: 0 (per patient report) Pain at the start of the session: 0 Pain at the end of the session: 5 DIETARY STATUS: Full Liquids started yesterday - mostly taking sips of water only. TFs via DHT. SOCIAL HISTORY: The patient currently lives in [facility] [place] with his Allie. 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 Noted lingual [...] sips of Boost via straw x4, h mcfp-tsp of apple sauce x2. Oral phase was [...] Reviewed basic rehabilitation course and role of FARM TRUCK DRIVER. Reviewed all aspiration precautions a nd dysphagia [...] per our usual protocol. Lora Grande MS, CCC-FARM TRUCK DRIVER Speech-Language Pathologist [facility] Dept. of Otolaryngology, PV-01 [address] [facility] [place] [address] Pager: [phone] signed by Lora Grande, CESAR-FARM TRUCK DRIVER at 08/30/2014 8:57 AM PDT Steph Trejo CCC-FARM TRUCK DRIVER - 08/29/2014 11:17 AM PDTENT SPEECH IP [...] is ready and willing to work with FARM TRUCK DRIVER this morning. PAIN SCALES: Worst pain level yesterday: 0 Pain at the start of the session: 0 Pain at the end of the session: 3 DIETARY STATUS: Current diet: The patient is currently NPO with DHT in place for all nutrition/hydration/me ds pending swallow evaluation. SOCIAL HISTORY: The patient currently lives in [facility] [place] with his Allie. 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 He reports that he has recently been [...] The patient has an upper denture and little traverse lower teeth in good repair. Noted lingual [...] Reviewed basic rehabilitation course and role of FARM TRUCK DRIVER. Reviewed all aspiration precautions a nd dysphagia [...] stay per our protocol. Steph Trejo M.S., CESAR-FARM TRUCK DRIVER Speech-Language Pathologist [facility] Otolaryngology, Head & Neck Surgery [facility] Shaun Ham PA-C - 08/29/2014 8:53 AM PDT . Head and Neck Surgery Inpatient Daily Progress Note: Author: SHAUN DELATORRE PA-C Attending Physician: Danny Abdullahi MD, * Primary Care Provider: Cong Freeman MD Admission Date: 08/27/2014 SKYLER LIMON, [id number] Hospital Day #2 ID: Mr. Sykler Limon is a 79 y/o male with [...] ROMILLA BIJLANI, PA-C Otolaryngology-Head and Neck Surgery [facility] Pager [phone] Galen Mijares M D,PhD - 08/28/2014 4:10 [...] Unit Team Progress Note CVICU D1 Assigned #[id number] ICU Admission Reason Most Recent Value ICU [...] old male with hx of CAD s/p ID in 2013, HTN, CKD, and hx of [...] ICU intubated and sedated . Mr. Limon's ID in 2013 was medically managed and his [...] Difficult intubation Cardiovascular CAD (coronary artery disease), little traverse coronary artery Overview S/P ID 2013 Current Assessment & Plan -Per ENT, [...] kidney disease) Current Assessment & Plan Baseline Sterile Preparation Technician ~1.5 Digestive GERD (gastroesophageal reflux disease) Overview [...] Role Pager Danny Abdullahi MD Admitting Provider [phone] Daryn Finney MD ICU PM Attending 07809 Danny Jaffe MD ICU Day Attending 44588 FAST HUG Feeding: NPO Analgesia: Acetaminophen, oxycodone, hydromorphone Sedation: NA Thromboprophylaxis: SCDs Head of Bed: > 30 degrees Ulcer Prophylaxis: famotidine Glycemic Control: insulin infusion Author:GALEN KEENAN MD,PhD [address] [address] Dontrell Friend MD - 08/28/2014 8:58 AM PDT Cardiovascular Intensive Care Unit Attending Progress Note CVICU D1 Assigned #[id number] ICU Admission Reason Most Recent Value ICU [...] old male with hx of CAD s/p ID in 2013, HTN, CKD, and hx of [...] ICU intubated and sedated . Mr. Limon's ID in 2013 was medically managed and his [...] passes SBT. With history of CAD and ID, will continue ASA 81 mg and switch from low intensity statin to high intensity (atorvastatin 80). Hospital Problems Priority Head/Neck Airway edema Difficult intubation Cardiovascular CAD (coronary artery disease), little traverse coronary artery HTN (hypertension) Respiratory/Chest Respiratory insufficiency Pulmonary edema Genitourinary CKD (chronic kidney disease) Digestive GERD (gastroesophageal reflux disease) Other Post-operative pain Service ENT [12] Admitting provider and ICU treatment team members Provider Role Pager Danny Abdullahi MD Admitting Provider [id number] Daryn Finney MD ICU PM Attending [phone] Danny Jaffe MD ICU Day Attending [phone] I have spent a total of 95 minutes in the direct care and management of this patient who is critically ill independent of any time spent teaching or performing any separately billable procedures. I reviewed the documented findings, all data and the recent imaging available. Author:DANNY JAFFE MD [address] [address] Shaun Ham PA-C - 08/28/2014 8:37 AM PDT Head and Neck Surgery Inpatient Daily Progress Note: Author: SHAUN DELATORRE PA-C Attending Physician: Danny Abdullahi MD, * Primary Care Provider: Cong Freeman MD Admission Date: 08/27/2014 SKYLER LIMON, [id number] Hospital Day #1 ID: Mr. Skyler Limon [...] SHAUN DELATORRE PA-C Otolaryngology-Head and Neck Surgery [facility] & [facility] Pager [phone] documented in this encounter Plan of Treatment [...] [facility] | [address] | [place], [place] | | | LIZZ ESPARZA OF CARE | [address] | [address] | | | TESTS | | | [...] MAR[facility] | [address] | [place], [place] | | | VILMA POINT OF CARE | [address] | [address] | | | TESTS | | | [...] + | [facility] | [address] [facility] [address] | [place], [place] | | | [place] POINT OF CARE | [address] | [address] | | | TESTS | | | [...] | | | LABORATORY | | | PRYDEINIG | | | SERVICES, | | | [...] | + + + + + | [facility] | [address] [facility] | [place] [address] | | | SERVICES, [facility] | [address] | | | + [...] MARQUAM | [address] | [place], [place] | | | LIZZ [facility] OF [place] | [address] | [address] | | | TESTS | | | [...] (H) | 60 - 99 mg/dL | [facility] - | | | GLUCOSE, [...] V[facility]Z | [address] | [place], [place] | | | LIZZ ESPARZA OF CARE | [address] | [address] | | | TESTS | | | [...] MARQUAM | [address] | [place], [place] | | | VILMA POINT OF CARE | [address] | [address] | | | TESTS | | | [...] PEDRO | [address] | [place] | | | [facility]ZZ [facility] OF [facility] | [facility] | [address] | | | TESTS | | | [...] [facility] | [address] | [place] [address] | | | SERVICES, CORE | MARINA [...] | | | LABORATORY | | | PRYDEINIG | | | SERVICES, | | | [...] | + + + + + | [facility] | [address] | [place] [address] | | | SERVICES, CORE | PARK [...] | | | LABORATORY | | | PRYDEINIG | | | SERVICES, | | | [...] | + + + + + | [facility] | [address] | [place] [address] | | | SERVICES, CORE | PARK [...] | + + + + + | [facility] [employer] | [address] | [place] [address] | | | SERVICES, CORE | MARINA [...] MARQUAM | [address] | [place], [place] | | | LIZZ [place] OF [place] | [address] | [address] | | | TESTS | | | [...] PEDRO | [address] | [place], [place] | | | RINER POINT OF CARE | [address] | [address] | | | TESTS | | | [...] | | | LABORATORY | | | PRYDEINIG | | | SERVICES, | | | [...] the MDRD equation recommended by the | [facility] | | National Kidney Disease [...] | + + + + + | [facility] | [address] | [place] [address] | | | SERVICES, CORE | PARK [...] MARQUAM | [address] | [place], [place] | | | [facility]MA POINT OF CARE | [address] | [address] | | | TESTS | | | [...] V[facility]Z | [address] | [place] | | | [facility] POINT OF CARE | [address] | [address] | | | TESTS | | | [...] MARQUAM | [address] | [place], [place] | | | [facility] POINT OF CARE | [address] | [address] | | | TESTS | | | [...] - [facility] | [address] | [place], [place] | | | V[place] POINT OF CARE | [address] | [address] | | | TESTS | | | [...] [facility] | [address] | [place] [address] | | | SERVICES, CORE | PARK [...] | | | LABORATORY | | | PRYDEINIG | | | SERVICES, | | | [...] | + + + + + | [facility] | [address] | [place] [address] | | | SERVICES, CORE | PARK [...] [facility] | [address] | [place] [address] | | | SERVICES, CORE | PARK [...] - MARQU[facility] | [address] | [place], [place] | | | LIZZ ESP[facility] OF CARE | [address] | [address] | | | TESTS | | | [...] V[facility]Z | [address] | [place], [place] | | | LIZZ [facility] OF CARE | [address] | [address] | | | TESTS | | | [...] MARQUAM | [address] | [place] | | | [facility] [place] | [address] | [address] | | | TESTS | | | [...] - [facility] | [address] | [place], [place] | | | LIZZ ESPARZA OF CARE | [address] | [address] | | | TESTS | | | [...] [facility] | [address] | [place], [place] | | | V[facility]MA POINT OF CARE | [address] | [address] | | | TESTS | | | [...] MARQUAM | [address] | [place] | | | LIZZ [facility] OF CARE | [address] | [address] | | | TESTS | | | [...] - [facility] | [address] | [place], [place] | | | LIZZ [facility]ZA OF CARE | [address] | [address] | | | TESTS | | | [...] V[facility]Z | [address] | [place], [place] | | | V[facility] POINT OF CARE | [address] | [address] | | | TESTS | | | [...] MARQUAM | [address] | [place] | | | LIZZ [facility] OF CARE | [address] | [address] | | | TESTS | | | [...] [facility] | [address] | [place] [address] | | | SERVICES, CORE | PARK [...] | | | LABORATORY | | | PRYDEINIG | | | SERVICES, | | | [...] | + + + + + | [facility] | [address] | [place] [address] | | | SERVICES, CORE | PARK [...] (H) | 60 - 99 mg/dL | [facility] - | | | GLUCOSE, [...] V[facility]Z | [address] | [place], [place] | | | [facility] [place] | [facility] | [address] | | | TESTS | | | [...] [facility] | [address] | [place], [place] | | | LIZZ ESP[facility]ZA OF CARE | [facility] | [address] | | | TESTS | | | [...] (H) | 60 - 99 mg/dL | [facility] - | | | GLUCOSE, [...] [facility] | [address] | [place], [place] | | | LIZZ ESPARZA OF CARE | [address] | [address] | | | TESTS | | | [...] V[facility] | [address] | [place], [place] | | | [facility] [facility] [place] | [facility] | [address] | | | TESTS | | | [...] PEDRO | [address] | [place] | | | V[facility]MA POINT OF CARE | [address] | [address] | | | TESTS | | | | + + + + + X-RAY PORTABLE CHEST 1 VIEW (08/28/2014 8:30 AM PDT) + + + + + + | Component | Value | Ref Range | Performed | Pathologist | | | | | At | Signature | + + + + + + | X-RAY | EXAM: WI CHEST 1 VIEW | | | | [...] [facility] | [address] | [place], [place] | | | LIZZ [facility]ZA OF CARE | [address] | [address] | | | TESTS | | | [...] MARQU[facility] | [address] | [place], [place] | | | LIZZ [facility]ZA OF CARE | [address] | [address] | | | TESTS | | | [...] V[facility] | [address] | [place] | | | V[facility] POINT OF CARE | [address] | [address] | | | TESTS | | | [...] MARQUAM | [address] | [place], [place] | | | [facility] [facility] [place] | [address] | [address] | | | TESTS | | | [...] MARQUAM | [address] | [place] | | | V[facility] POINT OF CARE | [address] | [address] | | | TESTS | | | [...] [facility] | [address] | [place], [place] | | | V[facility]MA POINT OF CARE | [address] | [address] | | | TESTS | | | [...] MARQU[facility] | [address] | [place] | | | LIZZ ESPARZA OF CARE | [address] | [address] | | | TESTS | | | [...] | + + + + + | [facility] | [address] | [place] [address] | | | SERVICES, MATY | MARINA [...] | | | LABORATORY | | | PRYDEINIG | | | SERVICES, | | | [...] the MDRD equation recommended by the | [facility] | | National Kidney Disease [...] | + + + + + | [facility] | [address] | [place] [address] | | | SERVICES, CORE | [address] | | | + + + + + MAGNESIUM, PLASMA (08/28/2014 2:05 AM PDT) + +---------+ + + + | Component | Value | Ref Range | Performed | Pathologist | | | | | At | Signature | + +---------+ + + + | MAGNESIUM,P | 1.5 (L) | 1.8 - 2.5 mg/dL | [facility] | | | LASMA | | | [...] | + + + + + | [facility] | [address] [facility] | [place] [address] | | | SERVICES, CORE | MARINA [...] PEDRO | [address] | [place], [place] | | | LIZZ ESP[facility]ZA OF [facility] | [address] | [address] | | | TESTS | | | [...] PEDRO | [address] | [place] | | | LIZZ ESP[facility] OF [facility] | [facility] | [address] | | | TESTS | | | [...] [facility] | [address] | [place] [address] | | | MATY HIGGINBOTHAM | MARINA [...] V[facility] | [address] | [place], [place] | | | [facility] [place] [facility] | [address] | [address] | | | TESTS | | | [...] | | | LABORATORY | | | PRYDEINIG | | | SERVICES, | | | [...] | + + + + + | [facility] [employer] | [address] [facility] | [place] [address] | | | SERVICES, CORE | MARINA [...] + + + + | X-RAY | STUDY:WI CHEST 1 VIEW | | | | [...] DEPT OF | [address] | [place], [place] | | | CARDIOLOGY | [address] | [address] | | + + + + + [...] [facility] | [address] | [place], [place] | | | LIZZ ESPARZA OF CARE | [address] | [address] | | | TESTS | | | [...] + + | [facility] | [address] | [place] [address] | | | SERVICES, CORE | PARK [...] [facility] | [address] | [place] [address] | | | SERVICES, CORE | PARK [...] | | | LABORATORY | | | PRYDEINIG | | | SERVICES, | | | [...] | + + + + + | [facility] | [address] | [place] [address] | | | SERVICES, CORE | MARINA [...] [facility] | [address] | [place], [place] | | | V[place]MA POINT OF CARE | [address] | [address] | | | TESTS | | | [...] [facility] | [address] | [place] [address] | | | SERVICES, | [address] [...] [facility] | [address] | [place] [address] | | | SERVICES, | [address] [...] | | | | | | Grade: [id number]: | | | | | | Positive [...] Oropharynx: | | | | | | [id number] Lymph | | | | | | Nodes (pN)Regional Lymph | | | | | | Nodes (pN): Oropharynx | | | | | | and Hypopharynx: | | | | | | iL2Rxrdbx of regional | | | | | [...] cm. | | | | | | Electronic Resources Librarian | | | | | | [...] nodes. | | | | | | Electronic Resources Librarian of | | | | | [...] marginsA6, | | | | | | chemical sales representative posterior | | | | | [...] 2A:F1-2, | | | | | | chemical sales representative of | | | | | [...] | + + + + + | [facility] | [address] | [place] [address] | | | PATHOLOGY | [address] [...] + + | CAD (coronary artery disease), little traverse coronary artery Coronary atherosclerosis of | | little traverse coronary artery | + + | Airway [...] | | | DAILY, First dose on [facility] 08/30/14 | | AM PDT | [...] | | | tube, ONCE, 1 dose, [facility] 08/28/14 | | AM PDT | | [...]
--- OUTSIDE RECORDS SUMMARY | ~2019-06-05 | XMS | Encounter Summary ---
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[place], | | | | | tongue (HCC) | [address] | [place] [address] | | | | | Procedures | [place], | Phone: | | | | | [place] | [place] [address] | [phone] | | | | | Treatment | Phone: | Fax: | | | | | Plan Complex | [phone] | [phone] | | | | | | Fax: | | | | | | | [phone] | | +--------+--------+ + + + + Encounter Details +--------+ + + + + | Date | Type | Department | Care Team | Description | +--------+ + + + + | 10/03/ | Hospital | [facility] | Art Red DO | | | 2015 | Encounter | MED CTR [address] | [address] | | | | | [place], | [place], [place] | | | | | [place] [address] | [address] | | | | | [phone] | | | +--------+ + + + [...] | 2019 | | | [address] | | | | | | [place] | | | | | | [address] | | | | | | | | +--------+ + + + + | 03/13/ | Office | Cardiology | Sophie Delacruz, | | | 2019 | Visit | | MD Chvio DIAZ | | | | | | [place] | | | | | | [address] | | | | | | | [...]
--- OUTSIDE RECORDS SUMMARY | ~2019-06-05 | XMS | Encounter Summary ---
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[place], | | | | | tongue (HCC) | [address] | [place] [address] | | | | | Procedures | [place], | Phone: | | | | | [place] | [place] [address] | [phone] | | | | | Treatment | Phone: | Fax: | | | | | Plan Complex | [phone] | [phone] | | | | | | Fax: | | | | | | | [phone] | | +--------+--------+ + + + + Encounter Details +--------+ + + + + | Date | Type | Department | Care Team | Description | +--------+ + + + + | 10/03/ | Hospital | [facility] | Art Red DO | | | 2015 | Encounter | MED CTR [address] | [address] | | | | | [place], | [place], [place] | | | | | [place] [address] | [address] | | | | | [phone] | | | +--------+ + + + [...] [place] | | | | | | [address] | | | | | | | | +--------+ + + + + | 03/13/ | Office | Cardiology | Sophie Delacruz, | | | 2019 | Visit | | MD Chivo DIAZ | | | | | | [place] | | | | | | [address] | | | | | | | [...]
--- OUTSIDE RECORDS SUMMARY | ~2019-06-05 | XMS | Clinical Summary ---
Demographics + + + | Address | [address] | | | [place] [address] | + + + | Home Phone [...] | + + + | Organization | [facility] | + + + | Address | Unknown | + + + | Phone | Unavailable | + + + Support + + +---------+ + | Name | Relationship | Address | Phone | + + +---------+ + | Allie Johnson | ECON | Unknown | | + + +---------+ + Care Team Providers + +------+ + | Care Adult Family Home Program Manager Name | Role | Phone | + +------+ + | Cong Freeman MD | PCP | | + +------+ + Source Comments HARDY is fully live on both [facility] Amb[facility] and [facility] InPatient[facility] Allergies No Known Allergies Medications + + + +---------+------+------+-------+ | Medication [...] under | | 0 | | | Activ | | mg [...] 0 | | | Activ | | oral | once daily. | | | | | e | | capsule,extended | | | | | | | | release 24hr | | | | | | | + + + +---------+------+------+-------+ | CYANOCOBALAMIN, | by injection route | | 0 | | | Activ | | VITAMIN B-12, | every thirty days. | | | | | e | | (VITAMIN B-12 INJ) | | | | | | | + + + +---------+------+------+-------+ | allopurinol 300 mg | 0.5 tablets by | | 0 | 04/0 | | Activ | | oral tablet | feeding tube route | | | 3/20 | | e | | | once daily. | | | 15 | | | + + + +---------+------+------+-------+ | aspirin chewable | 1 tablet by feeding | | 0 | 04/0 | | Activ | | 81 mg oral | tube route once | | | 3/20 | | e | | tablet,chewable | daily. | | | 15 | | | + + + +---------+------+------+-------+ | carvedilol 12.5 mg | 1 tablet by feeding | | 0 | 04/0 | | Activ | | oral tablet | tube route two times | | | 3/20 | | e | | | daily. Administer | | | 15 | | | | | with food. | | | | | | + + + +---------+------+------+-------+ | clopidogrel 75 mg | 1 tablet by feeding | | 0 | 04/0 | | Activ | | oral tablet | tube route once | | | 4/20 | | e | | | daily. | | | 15 | | | + + + +---------+------+------+-------+ | | 1 tablet by feeding | | 0 | 04/0 | | Activ | | hydrochlorothiazide | tube route once | | | 3/20 | | e | | 25 mg oral tablet | daily. | | | 15 | | | + + + +---------+------+------+-------+ | losartan 50 mg | 1 tablet by feeding | | 0 | 04/0 | | Activ [...] tube | 119 g | 0 | 04/0 | | Activ | | glycol 17 gram/dose | route once daily. | | | 3/20 | | e | | oral powder | | | | 15 | | | + + + +---------+------+------+-------+ | simvastatin 10 mg | 1 tablet by feeding | | 0 | 04/0 | | Activ [...] | every six hours. 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 | + + + + + | Cancer Staging: Clinical: Stage III (T2, N1, M0) - Signed by | | Danny Abdullahi MD on 08/20/2014 | + + | Overview: S/P TORS partial [...] | + + + + + | Pneumococcal | | | | | vaccination (1 of 2 | 9 | | | | - PCV13) | | | | + + + + + | Influenza (Flu) | | | | | vaccination (#1) | 9 | | | + + + + + Results Not on filefrom Last 3 Months Insurance + +--------+ +--------+ + +--------+ | Payer | Benefi | Subscriber | Effect | Phone | Address | Type | | | t Plan | ID | [place] | | | | | | / | | Dates | | | | | | Group | | | | | | + +--------+ +--------+ + +--------+ | MEDICARE | MEDICA | xxxxxxxxxx | 05/31/19 | [phone] | [address] | Medica | | | RE A & | | 02-Pre | 1 | [phone] | re | | | B | | sent | | [place], [place] | | | | | | | | [address] | | + +--------+ +--------+ + +--------+ | [employer] [place] | MUTUAL | [phone] | 05/31/19 | [phone] | [phone] | Indemn | | MEDICARE SUPPL | OF | | 15-Pre | 0 | [employer] OF | ity | | | [place] | | sent | | [place] [address] | | | | MEDICA | | | | [place], [place] | | | | RE | | | | [phone] | | | | SUPPL | | | | | | + +--------+ +--------+ + +--------+ | [place] | [place] | [phone] | Effect | [phone] | [address] | Agency | | ADMINISTRATION | COMMUN | | vanessa | [phone] | [phone] | | | | ITY | | for | | [place], | | | | [place] | | all | | [place] [address] | | | | RCE | | dates | | | | + +--------+ +--------+ + +--------+ + +--------+ +--------+ + + | Guarantor Name | Accoun | Relation to | Date | Phone | Billing Address | | | t Type | Patient | of | | | | | | | | | | + +--------+ +--------+ + + | Navi Johnson | Person | Self | [birth year] | [address] | | | al/Fam | | 1935 | [phone] | [place] [address] | | | lubna | | | 1 (Home) | | + +--------+ +--------+ + + | Navi Johnson | [place] | Self | [birth year] | | [address] | | | Sponso | | 1935 | [phone] | [place] [address] | | | red | | | 1 (Home) | | + +--------+ +--------+ + + Advance Directives + + + + + | Code Status | Date | Date | Comments | | | Activated | Inactivated | | + + + + + | Full Code | 08/27/2014 | 08/31/2014 | | | | 11:51 AM | 10:43 PM | | + + + + + + + + +---+ | | | | | + + + +---+ | Full Code | 08/27/2014 | 08/27/2014 | | | | 6:18 AM | 11:51 AM | | + + + +---+
--- OUTSIDE RECORDS SUMMARY | ~2019-06-05 | XMS | Encounter Summary ---
Demographics + + + | Address | [address] | | | [place] [address] | + + + | Home Phone [...] [place] | | | | | [address] | | + + + + + Care Team Providers + +------+ + | Care Body Work Auto Trimmer Name | Role | Phone | [...] Cancer of | Art Holloway DO | Gin Feeder [address] | | | Required | | base of | [address] | [place] | | | | | tongue (HCC) | [address] | [place], [place] | | | | | [address] | [place], | [address] | | | | | (ICD-9-CM) - | [place] [address] | Phone: | | | | | Cancer of | Phone: | [phone] | | | | | base of | [phone] | Fax: | | | | | tongue (HCC) | Fax: | [phone] | | | | | Procedures | [phone] | | | | | | Speech | | | +--------+ + + + + + Encounter Details +--------+ + + + + | Date | Type | Department | Care Team | Description | +--------+ + + + + | 11/19/ | Hospital | [facility] | Ruy Chaparro | Dysphagia (Primary | | 2015 | Encounter | MED CTR SPEECH | MD Jason [address] | Dx) | | | | THERAPY [address] | [address] [place] | | | | | [place], | [place] [address] | | | | | [place] [address] | [phone] | | | | | [phone] | | | | | | | Michelle Vera | | | | | | M, Speech | | | | | | Pathologist [address] | | | | [address] [place] | | | | | | [place] [address] | | | | | | [phone] | | | | | | | [...] Speech Pathologist - 11/19/2014 11:56 AM PDT [facility] [address] [facility] [address] Speech Therapy Daily Treatment Note Date: 11/19/2014 Patient Information Patient Name: Navi Johnson Date of : 1935 Age: 79 y.o. Encounter Diagnoses Code Name Primary? 787.20 Dysphagia Yes Date of Onset: 08/27/14 Referring Provider: Ruy Chaparro MD Rehab Precautions [facility] BATTING MACHINE OPERATOR INSULATION OP EVAL from 10/03/2014 in [facility] SPEECH THERAPY Rehab Precautions Precautions Hearing impairment, Vision impairment Rehab Learning Style Office Visit from 10/08/2014 in [facility] THERAPY OT OP [facility] BATTING MACHINE OPERATOR INSULATION OP E ANTONY from 10/03/2014 in [facility] SPEECH THERAPY Learning Style Patient's Optimum Learning [...] Noncompliant wi th swallow exercises d/t pain. BATTING MACHINE OPERATOR INSULATION educated on the importance of swallowing and swallow exer cises to maintain strength, and prevent dysphagia exacerbation during and post tx. BATTING MACHINE OPERATOR INSULATION also explained and provided handouts on a full liquid diet. BATTING MACHINE OPERATOR INSULATION referred him to the building construction superintendent as he looked visibly thinner and reported he has lost weight. Pt needs doctor consult to help m anage the pain on swallow more efficiently. After the session, BATTING MACHINE OPERATOR INSULATION called the building construction superintendent and spoke with Dr. Red's RN about need for pain management in him continuing to consume food PO , prevent malnutrition, and prevent disuse atrophy of pharyngeal muscles. Pt also reported e xtreme dysguesia and occ nausea. These factors have contributed to a lack of appetite. BATTING MACHINE OPERATOR INSULATION w ill follow up with Pt next visit to provide more education and instruction of swallow exerci ses and diet texture modification. Next Visit: Swallow eval of varied textures, diet texture modification and oral motor exerc ise education BATTING MACHINE OPERATOR INSULATION Treatment BATTING MACHINE OPERATOR INSULATION Treatment: patient/caregiver education, oral motor exercise, home [...] [place] | | | | | | [id number] | | | | | | | | +--------+ + + + + | 03/13/ | Office | Cardiology | Sophie Delacruz, | | | 2019 | Visit | | MD Chivo DIAZ | | | | | | [facility] [place] | | | | | | [address] | | | | | | | | +--------+ + + + + documented as of this encounter Visit Diagnoses + + | Diagnosis | + + | Dysphagia - Primary Dysphagia, unspecified | + + documented in this encounter
--- OUTSIDE RECORDS SUMMARY | ~2019-06-05 | XMS | Encounter Summary ---
Demographics + + + | Address | [address] | | | [place] [address] | + + + | Home Phone | | + + + | Preferred Language | Unknown | + + + | Marital Status | | + + + | Caodaism Affiliation | NON | + + + | Race | White | + + + | Ethnic Group | Not or | + + + Author + + + | Author | [facility] | + + + | Organization | [facility] | + + + | Address | Unknown | + + + | Phone | Unavailable | + + + Support + + +---------+ + | Name | Relationship | Address | Phone | + + +---------+ + | Kofia Alex | ECON | Unknown | | + + +---------+ + Care Team Providers + +------+ + | Care Christian Science Practitioner Name | Role | Phone | + +------+ + | Ruy Chaparro MD | PCP | | + +------+ + Encounter Details +--------+ + + + + | Date | Type | Department | Care Team | Description | +--------+ + + + + | 08/13/ | Abstract | Otolaryngology | Danny Abdullahi | | | 2014 | | Head and Neck | MD Jessy [address] [facility] | | | | | Surgery Services at | [facility] | | | | | [address] | [place], [place] | | | | | [address] | [address] | | | | | Mailcode: [id number] | [phone] | | | | | [facility] | | | | | | [place], [place] | | | | | | [address] | | | | | | [phone] | | | +--------+ + + + [...]
--- OUTSIDE RECORDS SUMMARY | ~2019-06-05 | XMS | Encounter Summary ---
Demographics + + + | Address | [address] | | | [place] [address] | + + + | Home Phone [...] [place] | | | | | [address] | | + + + + + Care Team Providers + +------+ + | Care Global Account Executive Name | Role | Phone | + [...] [place] | | | | | [address] [place] | [place] [address] | | | | | [place] [address] | [phone] | | | | | [phone] | | | +--------+ + + + [...] [place] | | | | | | [address] | | | | | | | | +--------+ + + + + | 03/13/ | Office | Cardiology | Sophie Delacruz, | | | 2019 | Visit | | MD Chivo DIAZ | | | | | | [place] | | | | | | [address] | | | | | | | | +--------+ + + + + documented as of this encounter Visit Diagnoses Not on filedocumented in this encounter"
--- OUTSIDE RECORDS SUMMARY | ~2019-06-05 | XMS | Encounter Summary ---
Demographics + + + | Address | [address] | | | [place] [address] | + + + | Home Phone [...] [place] | | | | | [address] | | + + + + + Care Team Providers + +------+ + | Care Infant And Toddler Teacher Name | Role | Phone | [...] | | | | | | [place] [address] | [place], [place] | | | | | | Phone: | [phone] Phone: | | | | | | [phone] | [phone] | | | | | | Fax: | Fax: | | | | | | [phone] | [phone] | +--------+ + + + + + [...] | | | | MRI Neck | [place] [address] | | | | | | Soft Tissue | Phone: | | | | | | Only w wo | [phone] | | | | | | Contrast | Fax: | | | | | | PEND DR SAAVEDRA | [phone] | | | | | | DICTATION [...] of | Art C, DO | [address] | | | | | base of | [address] | [place], | | | | | tongue (HCC) | [address] | [place] [address] | | | | | Procedures | [place], | Phone: | | | | | [place] | [place] [address] | [phone] | | | | | Treatment | Phone: | Fax: | | | | | Plan Complex | [phone] | [phone] | | | | | | Fax: | | | | | | | [phone] | | +--------+--------+ + + + + [...] Cancer of | Art Holloway DO | Manager Behavior [address] | | | Required | | base of | [address] | [place] | | | | | tongue (HCC) | [address] | [place], [place] | | | | | [address] | [place], | [address] | | | | | (ICD-9-CM) - | [place] [address] | Phone: | | | | | Cancer of | Phone: | [phone] | | | | | base of | [phone] | Fax: | | | | | tongue (HCC) | Fax: | [phone] | | | | | Procedures | [phone] | | | | | | Speech [...] | | | MD Prakash | | [place] [address] | | | | | [facility] | | Phone: | | | | | Procedures | | [phone] | | | | | NEW PATIENT | | Fax: | | | | | | | [phone] | +--------+--------+ + + + + Encounter Details +--------+ + + + + | Date | Type | Department | Care Team | Description | +--------+ + + + + | 09/26/ | Hospital | [facility] | Art Saavedra DO | Cancer of base of | | 2015 | Encounter | MED CTR RADIATION | [address] | tongue (HCC) | | | | ONCOLOGY [address] | [place] | (Primary Dx) | | | | [place], | [id number] | | | | | [place] [address] | | | | | | [phone] | | | +--------+ + + + [...] [place] | | | | | | [address] | | | | | | | | +--------+ + + + + | 03/13/ | Office | Cardiology | Sophie Delacruz, | | | 2019 | Visit | | MD Chivo DIAZ | | | | | | [place] | | | | | | [address] | | | | | | | [...]
--- OUTSIDE RECORDS SUMMARY | ~2019-06-05 | XMS | Encounter Summary ---
Demographics + + + | Address | [address] | | | [place] [address] | + + + | Home Phone | | + + + | Preferred Language | Unknown | + + + | Marital Status | | + + + | Rastafari Affiliation | NON | + + + [...] Team Providers + +------+ + | Care Pilates Coordinator Name | Role | Phone | [...] 2015 | | Speech Therapy | [facility] [address] | collection | | | | Services at [facility] | [address] | | | | | [address] | [place], [place] | | | | | Loop Mailcode: PV01 | [address] | | | | | Physician's | | | | | | [place], | | | | | | [place] [address] | | | | | | [phone] | | | +--------+ + + + [...]
--- OUTSIDE RECORDS SUMMARY | ~2019-06-05 | XMS | Encounter Summary ---
Demographics + + + | Address | [address] | | | [place] [address] | + + + | Home Phone | | + + + | Preferred Language | Unknown | + + + | Marital Status | | + + + | Nondenominational Affiliation | NON | + + + [...] Team Providers + +------+ + | Care Welder/Fabricator Name | Role | Phone | + [...] Head and Neck | MD Jessy [address] [facility] | | | | | Surgery Services at | [facility] | | | | | [address] | [place], [place] | | | | | [address] | [address] | | | | | Mailcode: PV01 | [phone] | | | | | [facility] | | | | | | [place], [place] | | | | | | [address] | | | | | | [phone] | | | +--------+ + + + [...]
--- OUTSIDE RECORDS SUMMARY | ~2019-06-05 | XMS | Encounter Summary ---
Demographics + + + | Address | [address] | | | [place] [address] | + + + | Home Phone | | + + + | Preferred Language | Unknown | + + + | Marital Status | | + + + | Buddhist Affiliation | Unknown | + + + | Race | Unknown | + + + | Ethnic Group | Unknown | + + + Author + + + | Author | [facility] | | | and [place] | + + + | Organization | [facility] | | | [...] [place] | | | | | [address] | | + + + + + Care Team Providers + +------+ + | Care Office Machine Punch Operator Name | Role | Phone | [...] | +--------+ + + + + | 12/17/ | Telephone | [facility] | Art Red DO | Other | | 2015 | | MED CTR MEDICAL | [address] | | | | | ONCOLOGY CLINIC [address] | [place], [place] | | | | | [facility] | [address] | | | | | [place] [address] | | | | | | [phone] | | | +--------+ + + + [...] [place] | | | | | | [address] | | | | | | | | +--------+ + + + + | 03/13/ | Office | Cardiology | Sophie Delacruz, | | | 2019 | Visit | | MD Chivo DIAZ | | | | | | [place] | | | | | | [address] | | | | | | | | +--------+ + + + + documented as of this encounter Visit Diagnoses Not on filedocumented in this encounter"
--- OUTSIDE RECORDS SUMMARY | ~2019-06-05 | XMS | Encounter Summary ---
Demographics + + + | Address | [address] | | | [place] [address] | + + + | Home Phone [...] + + + | Author | [facility] | + + + | Organization | [facility] | + + + | Address | Unknown | + + + | Phone | Unavailable | + + + Support + + +---------+ + | Name | Relationship | Address | Phone | + + +---------+ + | Kofia Alex | ECON | Unknown | | + + +---------+ + Care Team Providers + +------+ + | Care Mallet And Die Cutter Name | Role | Phone | [...] [address] | | | | | | [place], [place] | | | | | | [address] | | | | | | [phone] | | | +--------+ + + + [...]
--- OUTSIDE RECORDS SUMMARY | ~2019-06-05 | XMS | Encounter Summary ---
Demographics + + + | Address | [address] | | | [place] [address] | + + + | Home Phone | | + + + | Preferred Language | Unknown | + + + | Marital Status | | + + + | Mandaen Affiliation | Unknown | + + + | Race | Unknown | + + + | Ethnic Group | Unknown | + + + Author + + + | Author | [facility] | | | and [place] | + + + | Organization | [facility] | | | [...] [place] | | | | | [address] | | + + + + + Care Team Providers + +------+ + | Care Rail Engineer Name | Role | Phone | [...] | | tongue (HCC) | | [place] [address] | | | | | Procedures | | Phone: | | | | | [place] OFFICE | | [phone] | | | | | OUTPATIENT | | Fax: | | | | | VISIT 25 | | [phone] | | | | | MINUTES | | | +--------+--------+ + + + + Encounter Details +--------+ + + + + | Date | Type | Department | Care Team | Description | +--------+ + + + + | 02/08/ | Hospital | [facility] | Art Red, DO | | | 2017 | Encounter | MED CTR RADIATION | [address] | | | | | ONCOLOGY [address] | [place] | | | | | [place], | [address] | | | | | [place] [address] | | | | | | [phone] | | | +--------+ + + + [...] as of this encounter Progress Notes Art eRd, DO - 02/08/2017 12:00 AM PDTPATIENT: Navi Johnson : 1935 DOS: 02/08/2017 Radiation Oncology Follow-up Clinic Note ICD/Diagnosis: 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 Danny Abdullahi M.D. Spenser Randall M.D. Ruy Chaparro M.D. [facility] Chief Complaint/History of Present Illness: Base [...] 27, [address] Danny Abdullahi at [facility]. Fin al pathology confirmed a 2.4 cm [...] the ENT service at the [facility] in [place] most recently in October 2016 with where a flexible nasal laryngoscopy procedure was performed. I do not h ave any record of this follow-up visit in care everywhere within [facility] and these records bart l be requested. No residual disease was seen on this exam and no mucosal abnormalities wer e seen per the patient. He states that he will return on a six-month basis to the [facility] alternating with my clinic every 3 months. Currently, he has no specific concern s or complaints after his last evaluation at the [facility] Review of Systems: ROS ConstitutionalAbnormal - Complains [...] / purpura / ecchymosis. 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 Art Red D.O., [facility] Radiation Oncologist Department of Radiation Oncology [facility] This note was transcribed using [employer] speech recognition software. As a result, there ma y be unintended for medical and/or spelling errors. Every attempt is made to correct dicta tion. If there are any questions or errors please contact our office. Page 1 of 3 CSN: [id number] signed by Art Red DO at 02/09/2017 [...] [place] | | | | | | [address] | | | | | | | | +--------+ + + + + | 03/13/ | Office | Cardiology | Sophie Delacruz, | | | 2019 | Visit | | MD Chivo DIAZ | | | | | | [place] | | | | | | [id number] | | | | | | | | +--------+ + + + + documented as of this encounter Visit Diagnoses Not on filedocumented in this encounter"
--- OUTSIDE RECORDS SUMMARY | ~2019-06-05 | XMS | Encounter Summary ---
Demographics + + + | Address | [address] | | | [place] [address] | + + + | Home Phone [...] [place] | | | | | [address] | | + + + + + Care Team Providers + +------+ + | Care End Finder Forming Department Name | Role | Phone | + +------+ + | Ruy Chaparro MD | PCP | | + +------+ + Reason for Visit +--------+ + | Reason | Comments | +--------+ + | Other | | +--------+ + Encounter Details +--------+ + + + + | Date | Type | Department | Care Team | Description | +--------+ + + + + | 12/21/ | Telephone | [facility] | Art Red DO | Other | | 2015 | | MED CTR MEDICAL | [address] | | | | | ONCOLOGY CLINIC [address] | [place], [place] | | | | | [facility] | [address] | | | | | [place] [address] | | | | | | [phone] | | | +--------+ + + + [...] [place] | | | | | | [address] | | | | | | | | +--------+ + + + + | 03/13/ | Office | Cardiology | Sophie Delacruz, | | | 2019 | Visit | | MD Chivo DIAZ | | | | | | [place] | | | | | | [address] | | | | | | | | +--------+ + + + + documented as of this encounter Visit Diagnoses Not on filedocumented in this encounter"
--- OUTSIDE RECORDS SUMMARY | ~2019-06-05 | XMS | Encounter Summary ---
Demographics + + + | Address | [address] | | | [place] [address] | + + + | Home Phone [...] [address] | | | | | [place] | | | | | [address] | | + + + + + Care Team Providers + +------+ + | Care Fur Scraper Name | Role | Phone | + +------+ + PCP | Unavailable | + +------+ + Encounter Details +--------+ + + + + | Date | Type | Department | Care Team | Description | +--------+ + + + + | 02/15/ | Hospital | [facility] | Unknown, | | | 2000 | Encounter | MED CTR SLEEP | MD Richie | | | | | CENTER [address] | [phone] | | | | | [place] | | | | | | [address] | | | | | | [phone] | | | +--------+ + + + [...] [place] | | | | | | [address] | | | | | | | | +--------+ + + + + | 03/13/ | Office | Cardiology | Sophie Delacruz, | | | 2019 | Visit | Rosemarie DIAZ | | | | | | [place] | | | | | | [address] | | | | | | | | +--------+ + + + + documented as of this encounter Visit Diagnoses Not on filedocumented in this encounter"
--- OUTSIDE RECORDS SUMMARY | ~2019-06-05 | XMS | Encounter Summary ---
Demographics + + + | Address | [address] | | | [place] [address] | + + + | Home Phone [...] [place] | | | | | [address] | | + + + + + Care Team Providers + +------+ + | Care Illuminating Engineer Name | Role | Phone | [...] | Telephone | [facility] | Art Rde DO | Other | | 2015 | | MED CTR MEDICAL | [address] | | | | | ONCOLOGY CLINIC [address] | [place], [place] | | | | | [facility] | [address] | | | | | [facility] [place] [address] | | | | | | [phone] | | | +--------+ + + + [...] [place] | | | | | | [address] | | | | | | | | +--------+ + + + + | 03/13/ | Office | Cardiology | Sophie Delacruz, | | | 2019 | Visit | | MD Chivo DIAZ | | | | | | [place] | | | | | | [address] | | | | | | | | +--------+ + + + + documented as of this encounter Visit Diagnoses Not on filedocumented in this encounter"
--- OUTSIDE RECORDS SUMMARY | ~2019-06-05 | XMS | Encounter Summary ---
Demographics + + + | Address | [address] | | | [place] [address] | + + + | Home Phone [...] Team Providers + +------+ + | Care Landscaping Supervisor Name | Role | Phone | + +------+ + | Ruy Chaparro MD | PCP | | + +------+ + Encounter Details +--------+ + + + + | Date | Type | Department | Care Team | Description | +--------+ + + + + | 08/13/ | Abstract | Otolaryngology | Danny Adbullahi | | | 2014 | | Head and Neck | MD Jessy [address] [facility] | | | | | Surgery Services at | [facility] | | | | | [address] | [place], [place] | | | | | [address] | [address] | | | | | Mailcode: PV01 | [phone] | | | | | [facility] | | | | | | [place], [place] | | | | | | [address] | | | | | | [phone] | | | +--------+ + + + [...]
--- OUTSIDE RECORDS SUMMARY | ~2019-06-05 | XMS | Encounter Summary ---
Demographics + + + | Address | [address] [facility] | | | [place] [address] | + + + | Home Phone | | + + + | Preferred Language | Unknown | + + + | Marital Status | | + + + | Congregation Affiliation | Unknown | + + + | Race | Unknown | + + + | Ethnic Group | Unknown | + + + Author + + + | Author | [facility] | | | and [place] | + + + | Organization | [facility] | | | [...] [place] | | | | | [address] | | + + + + + Care Team Providers + +------+ + | Care Last Chalker Name | Role | Phone | + [...] | | ONCOLOGY CLINIC [address] | [place], [place] | | | | | [facility] | [address] | | | | | [place] [address] | | | | | | [phone] | | | +--------+ + + + [...] [place] | | | | | | [address] | | | | | | | | +--------+ + + + + | 03/13/ | Office | Cardiology | Sophie Delacruz, | | | 2019 | Visit | | MD Chivo DIAZ | | | | | | [place] | | | | | | [address] | | | | | | | | +--------+ + + + + documented as of this encounter Visit Diagnoses Not on filedocumented in this encounter"
--- OUTSIDE RECORDS SUMMARY | ~2019-06-05 | XMS | Encounter Summary ---
Demographics + + + | Address | [address] | | | [place] [address] | + + + | Home Phone [...] [place] | | | | | [address] | | + + + + + Care Team Providers + +------+ + | Care Black Oxide Coating Equipment Tender Name | Role | Phone | + [...] W | | | | | | [place], | | | | | | [place] [address] | | | | | | [phone] | | | +--------+ + + + [...] [place] | | | | | | [address] | | | | | | | | +--------+ + + + + | 03/13/ | Office | Cardiology | Sophie Delacruz, | | | 2019 | Visit | | MD Chivo DIAZ | | | | | | [place] | | | | | | [phone] | | | | | | | | +--------+ + + + + documented as of this encounter Visit Diagnoses Not on filedocumented in this encounter"
--- OUTSIDE RECORDS SUMMARY | ~2019-06-05 | XMS | Encounter Summary ---
Demographics + + + | Address | [address] | | | [place] [address] | + + + | Home Phone [...] [place] | | | | | [address] | | + + + + + Care Team Providers + +------+ + | Care Manager Distribution Name | Role | Phone | + [...] [address] | | | | | [place], [place] | [facility] | | | | | [address] | [place] [address] | | | | | [phone] | [phone] | | | | | | | [...] [place] | | | | | | [address] | | | | | | | | +--------+ + + + + | 03/13/ | Office | Cardiology | Sophie Delacruz, | | | 2019 | Visit | | MD Chivo DIAZ | | | | | | [place] | | | | | | [address] | | | | | | | [...] GIVEN Testing | | | performed at [facility];[address] [place] [address];[place] [address] CULTURE | | | >100,000 CFU/ML ESCHERICHIA | | | COLI 10,000 TO | | | 50,000 CFU/ML MIXED GRAM POSITIVE SAM NO SUSCEPTIBILITY TO FOLLOW | | | Testing performed | | | at [facility];[address] [place] [address];[place] [address] REPORT STATUS | | | 04/12/2012 FINAL [...] GIVEN Testing | | | performed at [facility];[address] [place] [address];[place] [address] CULTURE | | | >100,000 CFU/ML ESCHERICHIA | | | COLI Testing | | | performed at [facility];[address] [place] [address];[place] [address] REPORT | | | STATUS 03/16/2012 FINAL [...]
--- OUTSIDE RECORDS SUMMARY | ~2019-06-05 | XMS | Encounter Summary ---
Demographics + + + | Address | [address] [address] | | | [place] [address] | + + + | Home Phone [...] [place] | | | | | [address] | | + + + + + Care Team Providers + +------+ + | Care Predictive Maintenance Specialist Name | Role | Phone | [...] | | | | | | [place] [address] | [place], [place] | | | | | | Phone: | [address] Phone: | | | | | | [phone] | [phone] | | | | | | Fax: | Fax: | | | | | | [phone] | [phone] | +--------+ + + + + + Encounter Details +--------+ + + + + | Date | Type | Department | Care Team | Description | +--------+ + + + + | 10/03/ | Hospital | [facility] | Spenser Valle | Carcinoma of | | 2015 | Encounter | MED [facility] MEDICAL | MD Jason [address] | oropharynx (HCC) | | | | ONCOLOGY CLINIC [address] | [place] | (Primary Dx) | | | | [address] | [place] [address] | | | | | [place] [address] | [phone] | | | | | [phone] | | | +--------+ + + + [...] Pt has been seen both at [facility] and [facility], most recently [facility]. CT of chest 07/27/14, partial; pharyngectomy Done by Dr. Abdullahi 08/27/14, at [facility]. 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
--- OUTSIDE RECORDS SUMMARY | ~2019-06-05 | XMS | Encounter Summary ---
Demographics + + + | Address | [address] | | | [place] [address] | + + + | Home Phone | | + + + | Preferred Language | Unknown | + + + | Marital Status | | + + + | Jehovah'S Witness Affiliation | Unknown | + + + | Race | Unknown | + + + | Ethnic Group | Unknown | + + + Author + + + | Author | [facility] | | | and [place] | + + + | Organization | [facility] | | | and [place] | + + + | Address | Unknown | + + + | Phone | Unavailable | + + + Support + + + + + | Name | Relationship | Address | Phone | + + + + + | Allie Alex | ECON | [address] | | | | | [place] | | | | | [address] | | + + + + + Care Team Providers + +------+ + | Care Wireless Sales Expert Name | Role | Phone | + +------+ + PCP | Unavailable | + +------+ + Reason for Visit + + + | Reason | Comments | + + + | Follow-up | | + + + | Cancer | | + + + Evaluate & Treat (Routine) +--------+--------+ + + + + | Status | Reason | Specialty | Diagnoses / | Referred By | Referred To | | | | | Procedures | Contact | Contact | +--------+--------+ + + + + | Closed | | Radiation | Diagnoses | [facility] | Art Red | | | | Oncology | Base of | Radiation | C, DO [address] | | | | | tongue | Oncology | [address] | | | | | cancer | Clinic [address] | [place], | | | | | Procedures | [place] | [place] [address] | | | | | [place] OFFICE | Lois Abreu, | Phone: | | | | | OUTPATIENT | [place] | [phone] | | | | | VISIT 25 | [address] | Fax: | | | | | MINUTES | Phone: | [phone] | | | | | OFFICE VISIT | [phone] | | | | | | EXTENDED | Fax: | | | | | | | [phone] | | +--------+--------+ + + + + Encounter Details +--------+ + + + + | Date | Type | Department | Care Team | Description | +--------+ + + + + | 11/24/ | Hospital | [facility] | Art Red DO | Carcinoma of | | 2018 | Encounter | MED CTR RADIATION | [address] | oropharynx (HCC) | | | | ONCOLOGY CLINIC [address] | [place], [place] | (Primary Dx) | | | | [place] | [address] | | | | | [facility] [place] [address] | | | | | | [phone] | | | +--------+ + + + [...] + + + | Blood Pressure | 155/71 | 11/24/2017 9:07 AM | | | | | PDT | | + + + + + | Pulse | 57 | 11/24/2017 9:07 AM | | | | | PDT | | + + + + + | Temperature | 36.2 C (97.1 F) | 11/24/2017 9:07 AM | | | | | PDT | | + + + + + | Respiratory Rate | 16 | 11/24/2017 9:07 AM | | | | | PDT | | + + + + + | Oxygen Saturation | 98% | 11/24/2017 9:07 AM | | | | | PDT | | + + + + + | Inhaled Oxygen | - | - | | | Concentration | | | | + + + + + | Weight | 85 kg (187 lb 6.3 | 11/24/2017 9:07 AM | | | | oz) | PDT | | + + + + + | Height | - | - | | + + + + + | Body Mass Index | 26.14 | 09/08/2017 11:04 AM | | | | | PDT [...] encounter Progress Notes Art Red DO - 11/24/2017 9:04 AM PDT Follow-up Clinic Note Chief Complaint/ICD10 ICD-10-CM [...] ba saloid features strongly positive for p16 08/27/2014 Surgery Surgeon: Danny Abdullahi Surgery indicated: [...] tissue edge at the anterior/base of tongue. 10/03/2014 Initial Diagnosis Carcinoma of oropharynx (HCC) 10/16/2014 - 11/29/2014 Radiation Therapy Total dose 6300 cGy delivered in 30 fractions using differential dosing VMAT technique to draining lymph node regions. History of Present Illness: I had the pleasure seeing Navi Johnson today in clinic. 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 He underwent transoral robotic surgery with left partial glossectomy and pharyngectomy with selective n malachi dissection levels 2 through 4 on August 27, [address] Danny Abdullahi at [facility]. Denise pope pathology confirmed a 2.4 cm moderately differentiated nonkeratinizing squamous cell carc inoma that was positive for angiolymphatic invasion. One of 6 lymph nodes was found positi ve at level IIA with focal extranodal extension found. Cauterized surgical margins were in itially positive with tumor extending to the torn and disrupted tissue edge at the anterio r/base of the tongue. Marginal biopsies were negative for residual disease. He underwent external beam radiation therapy receiving a total dose of 6300 cGy delivered in 30 fractions using a differential dosing VMAT technique that completed on November 29, 2014. He is eating a full and regular diet at this time with only difficulty with very dry foods. He states that his taste is near normal with the exception of dry foods which is unchange d by prior follow-up. He has returned to the ENT service at the [facility] in [facility] most recently in November 12, 2016 with where a flexible nasal laryngoscopy procedure was pe rformed and found to be negative. He states that he was seen by the [place] proximally 6 months ago; however, I do not have any record of this follow-up visit in care everywhere within [facility] and these records will be requested. No residual disease was seen on this exam and no mucosal abnormalities were seen per the patient. He states that he will return in 6 months to the [facility] alternating with my clinic every 6 months. Currently, he has no specific concerns or complaints after his last evaluation at the [facility] ROS REVIEW OF SYSTEMS Constitutional: Reports energy level is improving after recent UTI 1 month ago. Denies high fevers, shaking chills, anorexia, nausea, vomiting, weight loss, or night sweats. Appetite without changes. Ear, Nose, Mouth, Throat: Denies odynophagia, dysphagia, or tinnitus. Cardiovascular: Denies shortness of breath, dyspnea on exertion, chest pain, palpitations o r orthopnea. Respiratory: Denies cough, hemoptysis, or sputum production. Gastrointestinal: Denies abdominal pain, constipation, diarrhea, melena, or bright red bloo d per rectum. Genitourinary: Reports had hematuria detected on test per patient with recent UTI, resolved now. Denies dysuria. Musculoskeletal: Denies joint pain or tenderness. Neurologic: Denies headache, visual changes, or numbness/tingling of the extremities. Endocrine: Denies peripheral edema or heat/cold intolerance. Hematologic: Denies spontaneous bruising or bleeding. Integumentary: Denies rash, wounds or other skin concerns. Pain: Denies pain. Note: Here for 9 month follow up, last scope 6 months ago in [place]. My chart: Declined Current Outpatient Prescriptions Medication Sig Dispense Refill aspirin 81 mg chewable tablet Take 81 mg by mouth Daily. carvedilol (COREG) 12.5 mg tablet Take 12.5 mg by mouth 2 times daily (with breakfast & dinner). hydrochlorothiazide 25 mg tablet Take 25 mg by mouth Daily. isosorbide mononitrate (IMDUR) 30 mg ER tablet Take 30 mg by mouth Daily. levothyroxine (SYNTHROID) 100 mcg tablet Take 100 mcg by mouth every morning (before br eakfast). Unsure of dose losartan (COZAAR) 50 mg tablet Take 50 mg by mouth Daily. simvastatin (ZOCOR) 10 mg tablet Take 20 mg by mouth nightly. No current facility-administered medications for this encounter. Allergies Allergen Reactions Oxycodone Not Noted Intolerance No active intolerances/contraindications BP 155/71 | Pulse 57 | Temp 36.2 C (97.1 F) (Oral) | Resp 16 | Wt 85 kg (187 lb 6.3 oz) | SpO2 98% | BMI 25.24 kg/m Physical Exam Constitutional: He is oriented to [...] Fiberoptic laryngoscopy/endoscopy: After verbal consent was obtained, we topically anesthetized the patient's nasal passages w ith 2% lidocaine with oxymetazoline. After inspection and palpation of the oral cavity and o ropharynx, we passed a flexible fiberoptic laryngoscope through a nasal passage to visualize the nasopharynx (fossae of Rosenmueller, torus tubarius, nasopharyngeal aldana), oropharynx (palatine tonsils, tongue base, palatoglossal/pharyngeal folds, oropharyngeal aldana), suprag lottic larynx (aryepiglottic folds, epiglottis, arytenoids, interarytenoid space, false voca l folds, ventricle), glottic larynx, and piriform sinuses. The subglottic larynx and postcri coid area were difficult to visualize but no gross lesion was appreciated. Relevant findings are reported here: Base of tongue, vallecula, pharyngeal aldana are pink and healthy-appearing with no telangie ctasia. AE fold false vocal cords, true vocal cords visualize without difficulty including pyriform sinus demonstrating normal mucosal features. Epiglottis is somewhat flattened. No pathology appreciated. Labs: No results found for: WBC, HGB, [...] dissection on August 27, 2014 while at [facility]. The primary lesion was 2.4 [...] rabia exercises. Flexible nasopharyngoscopy demonstrated normal tissue response today with n o evidence of recurrent disease. I will continue to alternate appointments between ENT at the [facility] in [place] in our clinic on a six-month basis moving forward in accor dance with the current NCCN guidelines recommending a range for years 3-5 of 4-8 months be tween visits. He was encouraged to call our clinic with any further questions or concern s. Thank you for allowing me to participate in the care of Navi Johnson. If you nikia karma have any questions regarding this evaluation, please do not hesitate to contact me. Thank you for allowing me to participate in the care of Navi. If you should have any qu estions regarding this evaluation, please do not hesitate to contact me. Art Red D.O., [facility] Radiation Oncologist Department of Radiation Oncology [facility] This note was transcribed using [email or web address] speech recognition software. As a result, there [...] [place] | | | | | | [id number] | | | | | | | | +--------+ + + + + | 03/13/ | Office | Cardiology | Sophie Delacruz, | | | 2019 | Visit | | [address] | | | | | | [place], [place] | | | | | | [address] | | | | | | | | +--------+ + + + + documented as of this encounter Procedures + +--------+ + + + | Procedure Name | Priori | Date/Time | Associated Diagnosis | Comments | | | ty | | | | + +--------+ + + + | IMAGING REPORT - | | 05/13/2017 | | Results for this | | EXTERNAL SCAN | | 12:00 AM | | procedure are in the | | | | PST | | results section. | + +--------+ + + + documented in this encounter Results IMAGING REPORT - EXTERNAL SCAN (05/13/2017 12:00 AM PST) + + + | Narrative | Performed At | + + + | Ordered by an | | | unspecified provider. | | + + + documented in this encounter Visit Diagnoses + + | Diagnosis | + + | 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
--- OUTSIDE RECORDS SUMMARY | ~2019-06-05 | XMS | Encounter Summary ---
Demographics + + + | Address | [address] | | | [place] [address] | + + + | Home Phone [...] [place] | | | | | [address] | | + + + + + Care Team Providers + +------+ + | Care Middleware Architect Name | Role | Phone | + +------+ + PCP | Unavailable | + +------+ + Encounter Details +--------+ + + + + | Date | Type | Department | Care Team | Description | +--------+ + + + + | 02/15/ | Hospital | [facility] | Unknown, | | | 2000 | Encounter | MED CTR SLEEP | MD Richie | | | | | CENTER [address] | [phone] | | | | | [place] | | | | | | [address] | | | | | | [phone] | | | +--------+ + + + [...] [place] | | | | | | [address] | | | | | | | | +--------+ + + + + | 03/13/ | Office | Cardiology | Sophie Delacruz, | | | 2019 | Visit | Rosemarie DIAZ | | | | | | [place] | | | | | | [address] | | | | | | | | +--------+ + + + + documented as of this encounter Visit Diagnoses Not on filedocumented in this encounter"
--- OUTSIDE RECORDS SUMMARY | ~2019-06-05 | XMS | Encounter Summary ---
Demographics + + + | Address | [address] | | | [place] [address] | + + + | Home Phone | | + + + | Preferred Language | Unknown | + + + | Marital Status | | + + + | Muslim Affiliation | Unknown | + + + | Race | Unknown | + + + | Ethnic Group | Unknown | + + + Author + + + | Author | [facility] | | | and [place] | + + + | Organization | [facility] | | | [...] [place] | | | | | [address] | | + + + + + Care Team Providers + +------+ + | Care Pattern Drum Maker Name | Role | Phone | [...] [place], [place] | | | | | [place], | [address] | | | | | [place] [address] | | | | | | [phone] | | | +--------+ + + + [...] [place] | | | | | | [address] | | | | | | | | +--------+ + + + + | 03/13/ | Office | Cardiology | Sophie Delacruz, | | | 2019 | Visit | | MD Chivo DIAZ | | | | | | [place] | | | | | | [address] | | | | | | | | +--------+ + + + + documented as of this encounter Visit Diagnoses + + | Diagnosis | + + | Thrush - Primary Candidiasis of mouth | + + documented in this encounter"
--- OUTSIDE RECORDS SUMMARY | ~2019-06-05 | XMS | Encounter Summary ---
Demographics + + + | Address | [address] | | | [place] [address] | + + + | Home Phone | | + + + | Preferred Language | Unknown | + + + | Marital Status | | + + + | Baptist Affiliation | Unknown | + + + [...] [place] | | | | | [address] | | + + + + + Care Team Providers + +------+ + | Care Global Climate Change Analyst Name | Role | Phone | [...] [place] | | | | | [address] [place] | [place] [address] | | | | | [place] [address] | [phone] | | | | | [phone] | | | +--------+ + + + [...] [place] | | | | | | [address] | | | | | | | | +--------+ + + + + | 03/13/ | Office | Cardiology | Sophie Delacruz, | | | 2019 | Visit | | MD Chivo DIAZ | | | | | | [place] | | | | | | [address] | | | | | | | | +--------+ + + + + documented as of this encounter Visit Diagnoses Not on filedocumented in this encounter"
--- OUTSIDE RECORDS SUMMARY | ~2019-06-05 | XMS | Encounter Summary ---
Demographics + + + | Address | [address] | | | [place] [address] | + + + | Home Phone | | + + + | Preferred Language | Unknown | + + + | Marital Status | | + + + | Presybeterian Affiliation | Unknown | + + + | Race | Unknown | + + + | Ethnic Group | Unknown | + + + Author + + + | Author | [facility] | | | and [place] | + + + | Organization | [facility] | | | [...] [place] | | | | | [address] | | + + + + + Care Team Providers + +------+ + | Care Washer Hand Name | Role | Phone | [...] | | | | Procedures | [address] [place] | [place] [address] | | | | | [place] OFFICE | Lois Abreu, | Phone: | | | | | OUTPATIENT | [place] | [phone] | | | | | VISIT 25 | [address] | Fax: | | | | | MINUTES | Phone: | [phone] | | | | | OFFICE VISIT | [phone] | | | | | | EXTENDED | Fax: | | | | | | | [phone] | | +--------+--------+ + + + + Encounter Details +--------+ + + + + | Date | Type | Department | Care Team | Description | +--------+ + + + + | 11/24/ | Hospital | [facility] | Art Red DO | Carcinoma of | | 2018 | Encounter | MED CTR RADIATION | [address] | oropharynx (HCC) | | | | ONCOLOGY CLINIC [address] | [place], [place] | (Primary Dx) | | | | [place] | [address] | | | | | [place] [address] | | | | | | [phone] | | | +--------+ + + + [...] 27, [address] Danny Abdullahi at [facility]. Denise pope pathology confirmed a 2.4 [...] returned to the ENT service at the [facility] in [facility] most recently in November 12, 2016 with where a flexible nasal laryngoscopy procedure was pe rformed and found to be negative. He states that he was seen by the [place] proximally 6 months ago; however, I do not have any record of this follow-up visit in care everywhere within [facility] and these records will be requested. No residual disease was seen on this exam and no mucosal abnormalities were seen per the patient. He states that he will return in 6 months to the [facility] alternating with my clinic every 6 months. Currently, he has no specific concerns or complaints after his last evaluation at the [facility] ROS REVIEW OF SYSTEMS Constitutional: Reports energy [...] up, last scope 6 months ago in [place]. My chart: Declined Current Outpatient Prescriptions Medication [...] dissection on August 27, 2014 while at [facility]. The primary lesion was 2.4 [...] to alternate appointments between ENT at the [facility] in [place] in our clinic on a six-month basis [...] hesitate to contact me. Art Red D.O., [facility] Radiation Oncologist Department of Radiation Oncology [facility] This note was transcribed using [employer] speech recognition software. As a result, there [...] [place] | | | | | | [id number] | | | | | | | | +--------+ + + + + | 03/13/ | Office | Cardiology | Sophie Delacruz, | | | 2019 | Visit | | [address] | | | | | | [place], [place] | | | | | | [address] | | | | | | | [...]
--- OUTSIDE RECORDS SUMMARY | ~2019-06-05 | XMS | Encounter Summary ---
Demographics + + + | Address | [address] | | | [place] [address] | + + + | Home Phone | | + + + | Preferred Language | Unknown | + + + | Marital Status | | + + + | Voodoo Affiliation | Unknown | + + + [...] [place] | | | | | [address] | | + + + + + Care Team Providers + +------+ + | Care Clean Rice Broker Name | Role | Phone | + +------+ + | Angel Lynch DO | PCP | | + +------+ + Encounter Details +--------+ + + + + | Date | Type | Department | Care Team | Description | +--------+ + + + + | 01/21/ | Orders Only | [facility] | Asad Smith MD | | | 2014 | | NEPHROLOGY [place] | [address] [place] | | | | | [address] | [address] [place], [place] | | | | | [address] [place], [place] | [address] | | | | | [address] | | | | | | [phone] | | | +--------+ + + + [...] [place] | | | | | | [address] | | | | | | | | +--------+ + + + + | 03/13/ | Office | Cardiology | Sophie Delacruz, | | | 2019 | Visit | | MD Chivo DIAZ | | | | | | [place] | | | | | | [phone] | | | | | | | [...] | | | LAB | | | NIGERIEN | | | | | + + [...] | | | LAB | | | [place]IEN | | | | | + +-------+ [...] | | recollection. OVER 100,000 CFU/ML LACROSE CLERK OF SUPERIOR COURT, IDEITIFICATION | | | AND SUSCEPTIBILITY TO [...]
--- OUTSIDE RECORDS SUMMARY | ~2019-06-05 | XMS | Encounter Summary ---
Demographics + + + | Address | [address] | | | [place] [address] | + + + | Home Phone | | + + + | Preferred Language | Unknown | + + + | Marital Status | | + + + | Holiness Affiliation | NON | + + + [...] Providers + +------+ + | Care Marketing Analytics Analyst Name | Role | Phone | [...] | | | | | | | [place], [place] | | | | | | | [address] | | | | | | | Phone: | | | | | | | [phone] | | | | | | | Fax: | | | | | | | [phone] | +--------+--------+ + + + + Encounter Details +--------+---------+ + + + | Date | Type | Department | Care Team | Description | +--------+---------+ + + + | 08/20/ | Office | Otolaryngology | Danny Castillo | Squamous cell | | 2015 | Visit | Head and Neck | MD Jessy [address] | carcinoma of | | | | Surgery Services at | [address] | oropharynx (HCC) | | | | [address] | [place], [place] | (Primary Dx) | | | | [address] | [address] | | | | | Mailcode: PV01 | [phone] | | | | | [facility] | | | | | | [place], [place] | | | | | | [address] | | | | | | [phone] | | | +--------+---------+ + + + [...] Neck Surgery Clinic Date: 08/20/2014 Author: DANNY CASTILLO MD Referring Physician: No Referring Provider Per Patient Chief Complaint Oropharynx squamous cell carcinoma History of Present Illness: Mr. 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 He noted several months of discomfort in his throat, and finally was diagnosed after the apperance of an enlarged l ymph node in the left neck. He notes very monor discomfort with swallowing, but no dyspnea, otalgia, or other masses or lesions. He has undergone imaging, panendoscopy, and biopsy at the [facility], confirming the presence of a p16+ SCC [...] available and pertinent outside records were reviewed. 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 Karn[place]sky Performance Status: 90 FamHx: No history [...] Research Associate, JIMMIE Suárez, and myself. Mr. Jonhson was off ered the study entitled A [...] PhD Department of Otolaryngology/Head and Neck Surgery [address] Mailcode: Pv01 [place] [phone] documented in thi s encounter Plan of Treatment Not on filedocumented as of this encounter Visit Diagnoses + + | Diagnosis | + + | Squamous cell carcinoma of oropharynx (HCC) - Primary Malignant neoplasm of | | oropharynx, unspecified site | + + documented in this encounter
--- OUTSIDE RECORDS SUMMARY | ~2019-06-05 | XMS | Encounter Summary ---
Demographics + + + | Address | [address] | | | [place] [address] | + + + | Home Phone [...] Team Providers + +------+ + | Care Machinery Erector Name | Role | Phone | + [...] Visit | Medicine Clinic at | J, TOWN CLERK | (Primary Dx); SCC | | | | [facility] 4th Floor [address] | | (squamous cell | | | | [address] | | carcinoma); CAD | | | | Mailcode: CH4S | | (coronary artery | | | | [facility] | | disease); Type 2 | | | | and Healing, | | diabetes mellitus | | | | Building 1,4th Floor | | (HCC); CKD (chronic | | | | [place], [place] | | kidney disease), | | | | [address] | | stage 3 (moderate); | | | | [phone] | | Other specified | | | [...] Reece MD | Marco Bridges, | | [facility] | | | RN | | eral [...] or walk. Surgery check-in location: Admitting - [facility], ninth floor [facility] Surgery Check in Time: The Preoperative Medicine [...] it is after office hours, call the [facility] dock operator at [phone] and ask them to page him or [...] taking pain medication. 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 Within Defined Limits except as not ed below no GI Bleed no GERD No liver disease no hepatitis : Within Defined Limits except as noted below renal failure Type: Chronic Insufficiency n o INSIDE STEWARD/STEWARDESS Endo: Within Defined Limits except as noted [...] contribute to this patient's care. [facility] [facility] AT [facility] 4TH FLOOR [address] [facility] [place] [place] [address] I advised the patient regarding [...] + +--------+ + + | COMMUNICATION TO [facility] | Procedures | Routin | Preop examination | Ordered: 08/20/2014 | | LAB DRAW | | e | | | + + +--------+ + + | COMMUNICATION TO [facility] | Procedures | Routin | CAD (coronary [...] | + +--------+ + + + | [facility] COLLECTION VENOUS | Routin | 08/20/2014 | [...] | [facility] | [address] | [place] [address] | | | OF CARE TESTS | [...] [facility] | [address] | [place] [address] | | | SERVICES, CORE | PARK [...] | + + + + + | [facility] | [address] | [place] [address] | | | SERVICES, | [address] [...] [facility] | [address] | [place] [address] | | | SERVICES, | [address] [...] DEPT OF | [address] | [place], [place] | | | CARDIOLOGY | [address] | [address] | | + + + + + [...] of unspecified type of vessel, | | nooksack or graft | + + | Type 2 diabetes mellitus (HCC) Type II or unspecified type diabetes mellitus without | | mention of complication, not stated as uncontrolled | + + | CKD (chronic kidney disease), stage 3 (moderate) | + + | Other specified pre-operative examination | + + documented in this encounter
--- OUTSIDE RECORDS SUMMARY | ~2019-06-05 | XMS | Encounter Summary ---
Demographics + + + | Address | [address] | | | [place] [address] | + + + | Home Phone [...] [place] | | | | | [address] | | + + + + + Care Team Providers + +------+ + | Care Ammunition Storage Superintendent Name | Role | Phone | + [...] [place], [place] | | | | | [place], | [address] | | | | | [place] [address] | | | | | | [phone] | | | +--------+ + + + [...] [place] | | | | | | [id number] | | | | | | | | +--------+ + + + + | 03/13/ | Office | Cardiology | Sophie Delacruz, | | | 2019 | Visit | | MD Chivo DIAZ | | | | | | [place] | | | | | | [phone] | | | | | | | | +--------+ + + + + documented as of this encounter Visit Diagnoses Not on filedocumented in this encounter"
--- OUTSIDE RECORDS SUMMARY | ~2019-06-05 | XMS | Encounter Summary ---
Demographics + + + | Address | [address] | | | [place] [address] | + + + | Home Phone [...] [place] | | | | | [address] | | + + + + + Care Team Providers + +------+ + | Care Spool Sorter Name | Role | Phone | [...] base of | [address] | [address] | | | | | tongue (HCC) | [place], | [place], | | | | | | [place] [address] | [place] [address] | | | | | | Phone: | Phone: | | | | | | [phone] | [phone] | | | | | | Fax: | Fax: | | | | | | [phone] | [phone] | +--------+ + + + + + Encounter Details +--------+---------+ + + + | Date | Type | Department | Care Team | Description | +--------+---------+ + + + | 10/23/ | Office | [facility] | Spenser Valle | Carcinoma of | | 2015 | Visit | MED CNT ONCOLOGY | MD Jason [address] | oropharynx (HCC) | | | | THERAPY [address] | [address] [place] | (Primary Dx) | | | | [place], | [place] [address] | | | | | [place] [address] | [phone] | | | | | [phone] | | | | | | | [...] Villegas OT - 10/23/2014 10:[address] [facility] OT OP [address] [facility] [address] Occupational Therapy Discharge Note Date: 10/23/2014 Patient [...] of tongue (HCC) Cardiovascular disease Hearing loss AK (myocardial infarction) (HCC) 2013 HTN (hypertension) Past Surgical History Procedure Laterality Date Knee surgery Right knee Microlaryngoscopy 08/27/2014 Rigid esosphagoscopy 08/27/14 Pharyngectomy and left parcial glossectomy 08/27/14 Allergies Allergen Reactions Oxycodone Rehab Precautions [facility] HAMMER ADJUSTER OP EVAL from 10/03/[address] [facility] SPEECH THERAPY Rehab Precautions Precautions Hearing [...] patient demonstrates independence with his HEP for long term care pharmacist symptom management. Functional Limitation Reporting G Code [...] disability on the Brief Pain Inventory [facility] Outcome Measurement Tool. LONG-TERM GOAL: OP OT [...] [place] | | | | | | [address] | | | | | | | | +--------+ + + + + documented as of this encounter Visit Diagnoses + + | Diagnosis | + + | 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
--- OUTSIDE RECORDS SUMMARY | ~2019-06-05 | XMS | Encounter Summary ---
Demographics + + + | Address | [address] | | | [place] [address] | + + + | Home Phone | | + + + | Preferred Language | Unknown | + + + | Marital Status | | + + + | Mormon Affiliation | NON | + + + | Race | White | + + + | Ethnic Group | Not or | + + + Author + + + | Author | [facility] | + + + | Organization | [facility] | + + + | Address | Unknown | + + + | Phone | Unavailable | + + + Support + + +---------+ + | Name | Relationship | Address | Phone | + + +---------+ + | Kofia Alex | ECON | Unknown | | + + +---------+ + Care Team Providers + +------+ + | Care Rcis Name | Role | Phone | + [...] Head and Neck | MD Jessy [address] [facility] | | | | | Surgery Services at | [facility] | | | | | [address] | [place], [place] | | | | | [address] | [address] | | | | | Mailcode: PV01 | [phone] | | | | | [facility] | | | | | | [place], [place] | | | | | | [address] | | | | | | [phone] | | | +--------+ + + + [...]
--- OUTSIDE RECORDS SUMMARY | ~2019-06-05 | XMS | Encounter Summary ---
Demographics + + + | Address | [address] | | | [place] [address] | + + + | Home Phone [...] [place] | | | | | [address] | | + + + + + Care Team Providers + +------+ + | Care Telephone Information Clerk Name | Role | Phone | [...] + + | 11/23/ | Hospital | [facility] | Art Red DO | Carcinoma of | | 2019 | Encounter | MED CTR RADIATION | [address] | oropharynx (HCC) | | | | ONCOLOGY CLINIC [address] | [place] | (Primary Dx) | | | | [address] | [address] | | | | | [place] [address] | | | | | | [phone] | | | +--------+ + + + [...] 27, [address] Danny Abdullahi at [facility]. Final pathology confirmed a 2.4 cm moderately [...] returned tothe ENT service routinely at the [facility] in [place] most recently in May 26, 2018 where a flexible nasal lar yngoscopy procedure was performed and found to be negative.No residual disease was seen on this exam and no mucosal abnormalities were seen per the patient. I personally reviewed th e outside notes regarding this case. He states that he will be seen in 6 months at the [facility] marking proximately 5 years since his diagnosis was made. Currently, he hung s no specific concerns or complaints after his last evaluation at the [facility] and presents for routine physical examination [...] dissection on August 27, 2014 while at [facility]. The primary lesion was 2.4 cm [...] to alternate appointments between ENT at the [facility] in [place] in our clinic on a six-month basis moving forward until 5 years where recommended converting to once a year visits either at the [place] in [place] or in my cli jose. He was encouraged to call our clinic with any further questions or concerns. Thank you for allowing me to participate in the care of Navi. If you should have any qu estions regarding this evaluation, please do not hesitate to contact me. Art Red D.O., ALIER Radiation Oncologist Department of Radiation Oncology [facility] This note was transcribed using EXPO speech recognition software. As a result, there [...] | 2019 | | | [address] | | | | | | [place] | | | | | | [address] | | | | | | | | +--------+ + + + + | 03/13/ | Office | Cardiology | Sophie Delacruz, | | 2019 | Visit | | MD [address] | | | | | | [place] | | | | | | [address] | | | | | | | | +--------+ + + + + documented as of this encounter Visit Diagnoses + + | Diagnosis | + + | Carcinoma of oropharynx (HCC) - Primary Malignant neoplasm of oropharynx, unspecified | | site | + + documented in this encounter
--- OUTSIDE RECORDS SUMMARY | ~2019-06-05 | XMS | Encounter Summary ---
Demographics + + + | Address | [address] | | | [place] [address] | + + + | Home Phone | | + + + | Preferred Language | Unknown | + + + | Marital Status | | + + + | Muslim Affiliation | NON | + + + | Race | White | + + + | Ethnic Group | Not or | + + + Author + + + | Author | [facility] | + + + | Organization | [facility] | + + + | Address | Unknown | + + + | Phone | Unavailable | + + + Support + + +---------+ + | Name | Relationship | Address | Phone | + + +---------+ + | Kofia Alex | ECON | Unknown | | + + +---------+ + Care Team Providers + +------+ + | Care Bituminous Distributor Operator Name | Role | Phone | [...] | neoplasm of | [address] | | | | | base of | [facility] | [facility] | | | | | tongue (HCC) | [address] | [address] [place], | | | | | Procedures | [place], | [place] | | | | | Consult, | [place] [address] | [address] | | | | | treat, f/u | Phone: | Phone: | | | | | | [phone] | [phone] | | | | | | Fax: | Fax: | | | | | | [phone] | [phone] | +--------+--------+ + + + + Encounter [...] | [address] | [place], | | | | | Mailcode: L337 | [place] [address] | | | | | [facility] | [phone] | | | | | [place], [place] | | | | | | [address] | | | | | | [phone] | | | +--------+ + + + [...] Johnson with Dr. Ej Meeks at the [facility]. I agree [...] brief note in CPRS to communicate with [place] providers. JH Will Muñoz MD,Ph D - 08/10/2014 7:25 PM PDT RADIATION ONCOLOGY CONSULTATION [place] ID: [id number] Requesting Physician: Dr. Danny Abdullahi MD CHIEF COMPLAINT: head/neck cancer HPI: Navi Johnson is a 79 year old man with a history of CAD, CKD, and DMII who presents with a new diagnosis of head and neck squamous cell carcinoma. 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 ALLERGIES: Allergies Allergen Reactions Acetaminophen Unknown MEDICATIONS: [...] is not easily visualized by any other ar ans. The theL nares, was prepared with [...] MD, PhD Dept of Radiation Medicine [facility] CC: A copy of this note has been sent to the referring provider, Dr. Danny Abdullahi MD.E lectronically signed by Will Meeks MD,PhD at 08/11/2014 8:51 AM PDTdocumented in this encounter Plan of Treatment Not on filedocumented as of this encounter Visit Diagnoses Not on filedocumented in this encounter"
--- OUTSIDE RECORDS SUMMARY | ~2019-06-05 | XMS | Encounter Summary ---
Demographics + + + | Address | [address] | | | [place] [address] | + + + | Home Phone [...] [place] | | | | | [address] | | + + + + + Care Team Providers + +------+ + | Care Nuclear Pharmacist Name | Role | Phone | + [...] | | ONCOLOGY CLINIC [address] | [place], [place] | | | | | [address] [place] | [address] | | | | | [place] [address] | | | | | | [phone] | | | +--------+ + + + [...] [place] | | | | | | [address] | | | | | | | | +--------+ + + + + | 03/13/ | Office | Cardiology | Sophie Delacruz, | | | 2019 | Visit | | MD Chivo DIAZ | | | | | | [place] | | | | | | [address] | | | | | | | | +--------+ + + + + documented as of this encounter Visit Diagnoses + + | Diagnosis | + + | 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
--- OUTSIDE RECORDS SUMMARY | ~2019-06-05 | XMS | Clinical Summary ---
Demographics + + + | Address | [address] | | | [place] [address] | + + + | Home Phone [...] Team Providers + +------+ + | Care Ship Cleaner Name | Role | Phone | + +------+ + | Cong Freeman MD | PCP | | + +------+ + Source Comments HARDY is fully live on both [facility] Ambulatory and [facility] InPatient.[facility] Allergies No Known Allergies Medications + [...] + + | CAD (coronary artery disease), [place] coronary artery | 08/27/2014 | + + [...] + | Last Assessment & Plan: Baseline Bobbin Cleaner ~1.5 | + + + + + [...] | | | | | | | [address] | | + +--------+ +--------+ + +--------+ | [employer] [place] | MUTUAL | [phone] | 05/31/19 | [phone] | [phone] | Indemn | | MEDICARE SUPPL | OF | | 15-Pre | 0 | [employer] | ity | | | [place] | | sent | | [place] [address] | | | | MEDICA | | | | [place] | | | | RE | | | | [id number] | | | | SUPPL | | | | | | + +--------+ +--------+ + +--------+ | [employer] | [place] | [phone] | Effect | [phone] | [address] | Agency | | ADMINISTRATION | COMMUN | | vanessa | 8 | [phone] | | | | ITY | | for | | [place], | | | | OUTSOU | | all | | [place] [address] | | | | RCE | | [...] | | al/Fam | | 1935 | [phone] | [place] [address] | | | lubna | | | 1 (Home) | | + +--------+ +--------+ + + | Navi Johnson | [place] | Self | [birth year] | | [address] | | | [place] | | 1935 | [phone] | [place] [address] | | | red | | | [...]
--- OUTSIDE RECORDS SUMMARY | ~2019-06-05 | XMS | Encounter Summary ---
Demographics + + + | Address | [address] | | | [place] [address] | + + + | Home Phone [...] [place] | | | | | [address] | | + + + + + Care Team Providers + +------+ + | Care Concentrator Operator Name | Role | Phone | [...] | (Primary Dx) | | | | [place], | [address] | | | | | [place] [address] | | | | | | [phone] | | | +--------+ + + + [...] | | | | | [place] | | | | | | [address] | | | | | | | | +--------+ + + + + | 03/13/ | Office | Cardiology | Sophie Delacruz, | | | 2019 | Visit | | MD Chivo DIAZ | | | | | | [place] | | | | | | [address] | | | | | | | | +--------+ + + + + documented as of this encounter Visit Diagnoses + + | Diagnosis | + + | 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
--- OUTSIDE RECORDS SUMMARY | ~2019-06-05 | XMS | Encounter Summary ---
Demographics + + + | Address | [address] | | | [place] [address] | + + + | Home Phone | | + + + | Preferred Language | Unknown | + + + | Marital Status | | + + + | Pentecostal Affiliation | Unknown | + + + | Race | Unknown | + + + | Ethnic Group | Unknown | + + + Author + + + | Author | [facility] | | | and [place] | + + + | Organization | [facility] | | | and [...] [place] | | | | | [address] | | + + + + + Care Team Providers + +------+ + | Care News Camera Person Name | Role | Phone | + [...] [place] | | | | | [address] [place] | [place] [address] | | | | | [place] [address] | [phone] | | | | | [phone] | | | +--------+ + + + [...] [place] | | | | | | [address] | | | | | | | | +--------+ + + + + | 03/13/ | Office | Cardiology | Sophie Delacruz, | | | 2019 | Visit | Rosemarie DIAZ | | | | | | [place] | | | | | | [address] | | | | | | | | +--------+ + + + + documented as of this encounter Visit Diagnoses Not on filedocumented in this encounter"
--- OUTSIDE RECORDS SUMMARY | ~2019-06-05 | XMS | Encounter Summary ---
Demographics + + + | Address | [address] | | | [place] [address] | + + + | Home Phone [...] [place] | | | | | [address] | | + + + + + Care Team Providers + +------+ + | Care Auger Operator Name | Role | Phone | [...] neoplasm of | [address] | [address] | | | | | oropharynx, | [address] | [place], | | | | | unspecified | [place], | [place] [address] | | | | | site | [place] [address] | Phone: | | | | | Procedures | Phone: | [phone] | | | | | [place] IV | [phone] | Fax: | | | | | INFUSION, | Fax: | [phone] | | | | | HYDRATION, | [phone] | | | | | | 31-60 MIN | | | | | | | UT IV | | | | | | | INFUSION, | | | | | | | HYDRATION, | | | | | | | 31-60 MIN | | | +--------+--------+ + + + + Encounter Details +--------+ + + + + | Date | Type | Department | Care Team | Description | +--------+ + + + + | 11/27/ | Hospital | [facility] | Art Red DO | Dysphagia; Carcinoma | | 2015 | Encounter | MED CTR CHEMO | [address] | of oropharynx (HCC) | | | | INFUSION [address] | [place], [place] | | | | | [place], | [address] | | | | | [place] [address] | | | | | | [phone] | | | +--------+ + + + [...] | 2019 | | | [address] [facility] | | | | | | [place] | | | | | | [id number] | | | | | | | | +--------+ + + + + | 03/13/ | Office | Cardiology | Sophie Delacruz, | | | 2019 | Visit | Rosemarie DIAZ | | | | | | [place] | | | | | | [address] | | | | | | | [...]
--- OUTSIDE RECORDS SUMMARY | ~2019-06-05 | XMS | Encounter Summary ---
Demographics + + + | Address | [address] | | | [place] [address] | + + + | Home Phone [...] [place] | | | | | [address] | | + + + + + Care Team Providers + +------+ + | Care Technology Education Instructor Name | Role | Phone | + [...] | | ONCOLOGY CLINIC [address] | [place], [place] | | | | | [address] [facility] | [address] | | | | | [place] [address] | | | | | | [phone] | | | +--------+ + + + [...] [place] | | | | | | [address] | | | | | | | | +--------+ + + + + | 03/13/ | Office | Cardiology | Sophie Delacruz, | | | 2019 | Visit | | MD Chivo DIAZ | | | | | | [place] | | | | | | [address] | | | | | | | | +--------+ + + + + documented as of this encounter Visit Diagnoses Not on filedocumented in this encounter"
--- OUTSIDE RECORDS SUMMARY | ~2019-06-05 | XMS | Encounter Summary ---
Demographics + + + | Address | [address] | | | [place] [address] | + + + | Home Phone [...] [place] | | | | | [address] | | + + + + + Care Team Providers + +------+ + | Care Accounts Executive Name | Role | Phone | [...] [place], [place] | | | | | [place], | [address] | | | | | [place] [address] | | | | | | [phone] | | | +--------+ + + + [...] [place] | | | | | | [address] | | | | | | | | +--------+ + + + + | 03/13/ | Office | Cardiology | Sophie Delacruz, | | | 2019 | Visit | | MD Chivo DIAZ | | | | | | [place] | | | | | | [address] | | | | | | | | +--------+ + + + + documented as of this encounter Visit Diagnoses Not on filedocumented in this encounter"
--- OUTSIDE RECORDS SUMMARY | ~2019-06-05 | XMS | Encounter Summary ---
Demographics + + + | Address | [address] | | | [place] [address] | + + + | Home Phone [...] [place] | | | | | [address] | | + + + + + Care Team Providers + +------+ + | Care Fabric Designer Name | Role | Phone | [...] [address] | | | | [place], | [address] [place] | | | | | [place] [address] | [place] [address] | | | | | [phone] | [phone] | | | | | | | [...] Speech Pathologist - 11/16/2014 11:10 [facility] [address] [place] [address] Cancellation/No Show Date: 11/16/2014 Patient Information Patient Name: Navi Johnson Date of : 1935 Age: 79 y.o. Reason for missed visit: Pt reported that he received a reminder call from OP therapies how ever he couldn't understand the message, "because the person spoke too fast." Phone call placed: yes Plan: DEEP SUBMERGENCE VEHICLE OPERATOR placed a call to the Pt who reported that now he is having more swallowing diffic ulties and feels like his throat is swollen and is also experiencing odynophagia. DEEP SUBMERGENCE VEHICLE OPERATOR talked with Pt about scheduling an appointment early next week. DEEP SUBMERGENCE VEHICLE OPERATOR provided suggestions to ease e ating, such as pureed foods, pain management and frequent oral care and rinses. DEEP SUBMERGENCE VEHICLE OPERATOR also spo ke with medicinal chemist about possible need for referral to prevent [...] [place] | | | | | | [address] | | | | | | | | +--------+ + + + + | 03/13/ | Office | Cardiology | Sophie Delacruz, | | | 2019 | Visit | | MD Chivo DIAZ | | | | | | [place] | | | | | | [id number] | | | | | | | | +--------+ + + + + documented as of this encounter Visit Diagnoses + + | Diagnosis | + + | Dysphagia - Primary Dysphagia, unspecified | + + documented in this encounter
[2019-06-05] MEDS ORDERED: COZAAR25 MG PO (06:54)
[2019-06-05] MEDS ORDERED: KEFLEX500 MG PO (09:00)
== END 2019-06-05 09:58 | disposition home or self-care (01) ==
LOC: ED 06:34
DX: I10 Essential (primary) hypertension (principal); N39.0 Urinary tract infection, site not specified; E03.9 Hypothyroidism, unspecified; E78.00 Pure hypercholesterolemia, unspecified; Z88.8 Allergy status to other drugs, medicaments and biological substances; Z79.899 Other long term (current) drug therapy; Z79.82 Long term (current) use of aspirin; Z85.21 Personal history of malignant neoplasm of larynx
CPT/HCPCS: 70450; 71045; 80053; 81001; 83880; 84484; 85025; 99284-25; A9270

== ENCOUNTER 2020-07-13 22:01 | Emergency (ER) | payer MEDICARE, OTHER ==
[~2020-07-13] VITALS: Ht 180.3 cm; Wt 77.6 kg
[~2020-07-13 22:01] MED LIST changes: +BACTRIM DS TAB1 EACH PO; +COZAAR25 MG PO; +KEFLEX500 MG PO
--- NOTE | 2020-07-14 12:34 | EKG ---
[facility] [address] [place] [address] Signed Normal sinus rhythm Normal ECG When compared with ECG of 10-JUN-2018 10:32, No significant change was found Confirmed by ADA BETTS DO ([id number]) on 07/14/2020 12:33:50 PM Electronically Signed By: ADA BETTS DO 07/14/20 1234 PATIENT NAME: SKYLER LIMON DILLONDENISANDREEA Electrocardiogram DATE OF : 33 PHYSICIAN: ADA BETTS DO REPORT #: [id number] REPORT IS CONFIDENTIAL AND NOT TO BE RELEASED WITHOUT AUTHORIZATION
== END 2020-07-13 23:30 | disposition home or self-care (01) ==
LOC: ED 22:01
DX: R07.9 Chest pain, unspecified (principal); I10 Essential (primary) hypertension; E78.00 Pure hypercholesterolemia, unspecified; E03.9 Hypothyroidism, unspecified; Z88.8 Allergy status to other drugs, medicaments and biological substances; Z79.899 Other long term (current) drug therapy; Z79.82 Long term (current) use of aspirin
CPT/HCPCS: 71045; 80053; 83735; 84484; 85025; 93005; 93010; 99285-25

== ENCOUNTER 2021-07-07 05:45 | Day surgery (SDC) | payer MEDICARE, OTHER ==
[~2021-07-07] VITALS: Ht 180.3 cm; Wt 75.0 kg
[~2021-07-07 05:45] MED LIST changes: -ISOSORBIDE DINI30 MG PO; +ISOSORBIDE MONO30 MG PO; +OSTERA TABLET1 EACH PO; +PROSCAR5 MG PO
--- NOTE | 2021-07-08 08:47 | OR ---
[facility] [address] [place], [place] [address] Signed DATE OF OPERATION: 07/07/2021 SURGEON: Constantino Lazo MD PREOPERATIVE DIAGNOSIS: Benign prostatic hyperplasia with lower urinary tract symptoms. POSTOPERATIVE DIAGNOSIS: Benign prostatic hyperplasia with lower urinary tract symptoms. NAMES OF PROCEDURES: 1. Urethral dilation using [place] sounds, from 18-Tanzanian to 30-Tanzanian. 2. Transurethral resection of the prostate. ANESTHESIA: General. ESTIMATED BLOOD LOSS: Minimal. COMPLICATIONS: None. SPECIMENS: Prostate chips sent to the pathology lab for evaluation. DRAINS: A 22-Tanzanian three-way Cornelius catheter, connected to moderate flow continuous bladder irrigation. INDICATION FOR PROCEDURE: Mr. Limon is a very pleasant 86-year-old gentleman who recently underwent diagnostic cystoscopy for jrnanamo-mw-uymzie BPH with lower urinary tract symptoms. His symptoms were not responding to both Flomax twice daily and finasteride once daily. Cystoscopy revealed a rather small gland overall, however, obvious lateral lobe hypertrophy was noted, along with bladder wall trabeculations indicative of active bladder outlet obstruction. After discussion of the risks and benefits of transurethral resection of the prostate, the patient elected to proceed. OPERATIVE FINDINGS: Electronically Signed By: CONSTANTINO LAZO MD 07/08/21 0847 PATIENT NAME: SKYLER LIMON OPERATIVE REPORT DATE OF : 33 REPORT #: [id number] PHYSICIAN: CONSTANTINO LAZO MD PCP: BREANA LI DO REPORT IS CONFIDENTIAL AND NOT TO BE RELEASED WITHOUT AUTHORIZATION [facility] [address] [place], [place] [address] Signed 1. On cystoscopy, there was no evidence of any suspicious masses, lesions, or stones. Bilateral ureteral orifices are in their normal anatomic location and effluxing clear urine. There is grade 2 bladder wall trabeculation noted throughout. 2. Urethroscopy reveals moderate lateral lobe hypertrophy with obvious kissing lobes of the prostate. There was no significant median lobe noted, however, the bladder neck is moderately elevated. The elevated bladder neck and lateral lobes of the prostate were resected using bipolar electrocautery without incident. The bladder neck was also was resected circumferentially. 3. At the end of the procedure, a 22-Tanzanian three-way Cornelius catheter was inserted into the patient's bladder and connected to continuous bladder irrigation. 30 mL of sterile water were instilled into the Cornelius catheter balloon. DESCRIPTION OF PROCEDURE: After informed consent was obtained, the patient was taken back to the operating room. He was transferred from [facility] to the operating room table, where general anesthesia was induced. He was placed in the dorsal lithotomy position and his genitalia were prepped and draped in a standard sterile fashion. The patient's urethra was then dilated using Gallo sounds from 18-Tanzanian to 30-Tanzanian without incident. Using a visual obturator, I inserted a 26-Tanzanian continuous flow sheath. With the visual obturator and the sheath in place, I performed a diagnostic cystoscopy. Please see the above findings. The visual obturator was then switched out for the resectoscope with a 24-Tanzanian bipolar loop. I immediately started resection on the elevated bladder neck. This was followed by resection of the anterior bladder neck. I then resected both the left and right lateral lobes of the prostate down to the level of the verumontanum. I did not resect any further distally from the verumontanum in order to avoid any iatrogenic injury to the external sphincter. After resecting with the bipolar loop, I switched to the bipolar button and continued cleaning up the prostatic urethra to be sure there was an adequate channel created for the patient. For hemostasis, I also used the bipolar button throughout and by the end of the procedure, there was no active bleeding from any place within the prostatic urethra. Throughout the procedure, the patient's bladder was irrigated manually using a Lenard syringe and all of the prostate chips were extracted from the patient's bladder and placed in a specimen cup to be sent to pathology for evaluation. Once I was satisfied that the prostate was fully resected and hemostasis was achieved, I removed the cystoscope and inserted a 22-Tanzanian three-way Cornelius catheter over a Sensor wire. The catheter was placed without incident and the Cornelius balloon was filled with 30 mL of sterile water. Again, the patient's bladder was mainly irrigated with the Cornelius catheter to ensure adequate placement. The catheter was then connected to continuous bladder irrigation. A digital rectal examination was then performed and the exam itself revealed an approximately 50 g gland that was smooth, soft and symmetric with no focal nodules. The procedure was then terminated. The patient tolerated the procedure well without any complication. He will now be transferred to the postanesthesia care unit in stable condition. Electronically Signed By: CONSTANTINO LAZO MD 07/08/21 0847 PATIENT NAME: SKYLER LIMON OPERATIVE REPORT DATE OF : 33 REPORT #: [id number] PHYSICIAN: CONSTANTINO LAZO MD PCP: BREANA LI DO REPORT IS CONFIDENTIAL AND NOT TO BE RELEASED WITHOUT AUTHORIZATION [address] [address] Signed DISPOSITION: The patient will be transferred to the medical-surgical floor today to have his CBI weaned slowly off for the remainder of the day. He will remain with us overnight mostly due to his advanced age since there was no significant bleeding during today's resection of the prostate. He will be sent home tomorrow with oxycodone 5 mg one-half tablet p.o. q.4-6 hours p.r.n. pain, dispense #10, along with Cipro 250 mg one tablet p.o. b.i.d. for a total of 5 days. He will be scheduled to return to clinic this July 10 to undergo a voiding trial. MD JOHANNA Garcia/BRIGHTL /[id number] Copies: ~ Electronically Signed By: CONSTANTINO LAZO MD 07/08/21 0847 PATIENT NAME: SKYLER LIMON OPERATIVE REPORT DATE OF : 33 REPORT #: [id number] PHYSICIAN: CONSTANTINO LAZO MD PCP: BREANA LI DO REPORT IS CONFIDENTIAL AND NOT TO BE RELEASED WITHOUT AUTHORIZATION
[2021-07-08] MEDS ORDERED: OXYCODONE HCL5 MG PO (08:50)
[2021-07-08] MEDS ORDERED: FLOMAX0.4 MG PO (08:50)
[2021-07-08] MEDS ORDERED: CIPRO250 MG PO (08:51)
== END 2021-07-08 10:20 | disposition home or self-care (01) ==
LOC: DS 05:45 → MS 11:45 → DS 07-08 10:20
PROVIDERS: ATTEND Urology
PROC: 0VT08ZZ Resection of Prostate, Via Natural or Artificial Opening Endoscopic (ICD-10-PCS; principal; 2021-07-07 06:45)
DX: N40.1 Benign prostatic hyperplasia with lower urinary tract symptoms (principal); R39.11 Hesitancy of micturition; R39.12 Poor urinary stream; R35.1 Nocturia; N32.89 Other specified disorders of bladder; I12.9 Hypertensive chronic kidney disease with stage 1 through stage 4 chronic kidney disease, or unspecified chronic kidney disease; N18.30 Chronic kidney disease, stage 3 unspecified; I25.10 Atherosclerotic heart disease of native coronary artery without angina pectoris; E78.5 Hyperlipidemia, unspecified; E03.9 Hypothyroidism, unspecified; I25.2 Old myocardial infarction; Z79.82 Long term (current) use of aspirin; Z88.8 Allergy status to other drugs, medicaments and biological substances; Z88.2 Allergy status to sulfonamides
CPT/HCPCS: 00914; 88305; C1769; J0131; J0690; J0696; J1100; J2001; J2405; J2704; J3010; J7121

== ENCOUNTER 2021-09-02 07:44 | Day surgery (SDC) | payer MEDICARE, OTHER ==
[~2021-09-02] VITALS: Ht 180.3 cm; Wt 74.1 kg
[~2021-09-02 07:44] MED LIST changes: +CEFDINIR300 MG PO; +CIPRO250 MG PO; +NITROSTAT0.4 MG SL; +OXYCODONE HCL5 MG PO; +VITAMIN B-1250 MCG PO
--- NOTE | 2021-09-02 10:24 | NUR ---
09/02/21 [address] Avery 1020 PATIENT ARRIVES TO PACU SLEEPING, SAYS "HUH?" TO VERBAL STIMULI. RESP EVEN AND UNLABORED, ROOM AIR SATS 100%.
--- NOTE | 2021-09-03 13:12 | OR ---
[facility] [address] [place], [place] [address] Signed DATE OF OPERATION: 09/02/2021 SURGEON: Dexter Coughlin MD PREOPERATIVE DIAGNOSES: 1. Cervical dysphagia; history of oropharyngeal squamous cell carcinoma, status post resection and chemo radiation therapy in 2014. 2. Distant history of Hill posterior gastropexy for intractable reflux in 1995. POSTOPERATIVE DIAGNOSES: 1. Hypopharyngeal scarring and radiation effect without sign of mucosal neoplasm. 2. Normal esophagus without sign of stricture neoplasm or inflammation; intact flap valve from Hill repair. 3. Pre-pyloric antral gastritis and duodenitis. PROCEDURE: Esophagogastroduodenoscopy with biopsy. ANESTHESIA: Intravenous sedation, propofol infusion; Marylin Colon CRNA INDICATIONS: This 86-year-old white man is well known to me from the past having undergone Hill posterior gastropexy for intractable gastroesophageal reflux in 1995. He has remained free of reflux type problems. 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 Subsequent chemo radiation therapy was undertaken as well. He has recovered fully from that. In the past several months, he has had increasing cervical dysphagia. He does not have any hemoptysis or hematemesis. He is admitted upon referral from Dr. Li his primary provider to undergo upper endoscopy to better characterize the problem. The risks of bleeding, infection, and perforation related to upper endoscopy reviewed with him. He understands and wished to proceed. FINDINGS: The hypopharynx had a whitish pale hue to it consistent with prior radiation therapy and there are telangiectasias of the hypopharyngeal soft tissue. The vocal cords themselves appeared normal. There was no evidence of neoplasm strictly speaking. The esophagoscope easily passed into the esophagus. Throughout its length, the esophagus was entirely normal. The stomach had normal rugal folds and the antrum had chronic inflammatory changes, but no sign of ulceration. There was no deformity of the pylorus. Electronically Signed By: DEXTER COUGHLIN MD 09/03/21 1312 PATIENT NAME: SKYLER LIMON OPERATIVE REPORT DATE OF : 33 REPORT #: [id number] PHYSICIAN: DEXTER COUGHLIN MD PCP: BREANA LI DO REPORT IS CONFIDENTIAL AND NOT TO BE RELEASED WITHOUT AUTHORIZATION [facility] [address] [place], [place] [address] Signed The duodenum itself had subacute inflammation, biopsies were obtained there as well. Retroflexed view did show a normal-appearing flap valve consistent with intact Hill posterior gastropexy. CLOtest was negative at 20 minutes post procedure. DESCRIPTION OF PROCEDURE: The patient was brought to the surgical endoscopy suite and placed in lateral decubitus position after undergoing topical lidocaine hypopharyngeal anesthesia by the revenue enforcement collection agent. A bite block was placed. He was given intravenous sedation with propofol infusional technique for full cardiopulmonary monitoring. An Olympus video upper endoscope was passed into the hypopharynx. The base of the tongue and surrounding soft tissue appeared without sign of neoplasm or friability particularly. There was a dull cedillo appearance to the mucosa generally speaking. The arytenoid processes and vocal cords were visualized, there was slight distortion, no actual neoplasm. The scope was easily passed into the esophagus. Throughout the esophagus, it appeared normal. Scope was passed into the stomach, which was insufflated with air. Rugal folds were normal. The antrum showed mild chronic inflammatory changes. The pylorus was normal. Scope was passed into the duodenum. There was definitely inflammatory change of the bulbar, first portion, and second portion of the duodenum, biopsies were obtained there, the scope was withdrawn and biopsy was then taken of the antrum for both BEBO and pathologic testing. Retroflexed view and withdrawal of scope showed a remarkably good flap valve consistent with successful Hill posterior gastropexy. Scope was withdrawn into the distal esophagus and biopsies were obtained there. The esophagus appeared normal without sign of Mo's epithelium or other abnormality. The mid esophagus was normal. Biopsies were obtained there also to assess for occult eosinophilic esophagitis. The scope was withdrawn to the hypopharynx once again, careful inspection again showed no neoplastic change, excoriation, or tumor of any sort, but a somewhat dull appearance with small telangiectasias suggestive of radiation effect. The scope was removed and the patient was taken to the recovery room in good condition. CONCLUDING DIAGNOSIS: No evidence of overt neoplasm on mucosal surfaces of the hypopharynx; intact flap valve. No evidence of esophageal stricture. PLAN: It may be appropriate for him to see his operating ENT surgeon for further consideration of a second opinion regarding his source of dysphagia. General dysfunction of swallowing mechanisms is common in a very elderly (which he is at 86 years old) and the secondary effects of radiation fibrosis and so forth may contribute to cervical dysphagia. Biopsies have now been taken of the mucosa of the hypopharynx or elsewhere and no neoplasm was visualized. Electronically Signed By: DEXTER COUGHLIN MD 09/03/21 1312 PATIENT NAME: SKYLER LIMON OPERATIVE REPORT DATE OF : 33 REPORT #: [id number] PHYSICIAN: DEXTER COUGHLIN MD PCP: BREANA LI DO REPORT IS CONFIDENTIAL AND NOT TO BE RELEASED WITHOUT AUTHORIZATION [facility] [address] [place], [place] [address] Signed He will return to the ongoing care of Dr. Li with further consideration to referral to ENT surgeon for their opinion. MD KOLTON Segal/URSZULA /[id number] cc: Breana Li DO Copies: BREANA LI DO ~ Electronically Signed By: DEXTER COUGHLIN MD 09/03/21 1312 PATIENT NAME: SKYLER LIMON OPERATIVE REPORT DATE OF : 33 REPORT #: [id number] PHYSICIAN: DEXTER COUGHLIN MD PCP: BREANA LI DO REPORT IS CONFIDENTIAL AND NOT TO BE RELEASED WITHOUT AUTHORIZATION
== END 2021-09-02 11:00 | disposition home or self-care (01) ==
LOC: DS 07:44 → OPS 07:44 → DS 11:00
PROVIDERS: ATTEND Surgery
PROC: 0DB78ZX Excision of Stomach, Pylorus, Via Natural or Artificial Opening Endoscopic, Diagnostic (ICD-10-PCS; 2021-09-02)
PROC: 0DB28ZX Excision of Middle Esophagus, Via Natural or Artificial Opening Endoscopic, Diagnostic (ICD-10-PCS; 2021-09-02)
PROC: 0DB38ZX Excision of Lower Esophagus, Via Natural or Artificial Opening Endoscopic, Diagnostic (ICD-10-PCS; 2021-09-02)
PROC: 0DB98ZX Excision of Duodenum, Via Natural or Artificial Opening Endoscopic, Diagnostic (ICD-10-PCS; principal; 2021-09-02 10:00)
DX: K29.70 Gastritis, unspecified, without bleeding (principal); K29.80 Duodenitis without bleeding; J39.2 Other diseases of pharynx; I25.2 Old myocardial infarction; C44.42 Squamous cell carcinoma of skin of scalp and neck; Z85.818 Personal history of malignant neoplasm of other sites of lip, oral cavity, and pharynx; Z92.3 Personal history of irradiation; Z98.890 Other specified postprocedural states
CPT/HCPCS: 00731; 88305; 88342; J2001; J2704; J7121

== ENCOUNTER 2022-11-07 09:08 | Emergency (ER) | payer MEDICARE, OTHER ==
[~2022-11-07] VITALS: Ht 180.3 cm; Wt 71.7 kg
[2022-11-07 09:50] VITALS: BP 206/80
== END 2022-11-07 09:52 | disposition home or self-care (01) ==
LOC: ED 09:08
DX: I10 Essential (primary) hypertension (principal); E78.00 Pure hypercholesterolemia, unspecified; E03.9 Hypothyroidism, unspecified; Z88.8 Allergy status to other drugs, medicaments and biological substances; Z79.899 Other long term (current) drug therapy; Z79.82 Long term (current) use of aspirin
CPT/HCPCS: 99283

== ENCOUNTER 2022-12-04 12:52 | Emergency (ER) | payer MEDICARE, OTHER ==
[~2022-12-04] VITALS: Ht 180.3 cm; Wt 71.7 kg
--- OUTSIDE RECORDS SUMMARY | ~2022-12-04 | XMS | Continuity of Care Document ---
Demographics + + + | Address | [address] | | | [place] [address] | + + + | Preferred Language | Unknown | + + + | Marital Status | | + + + | Restorationism Affiliation | Unknown | + + + | Race | White | + + + | Ethnic Group | Not or | + + + Author + + + | Author | [facility] | + + + | Organization | [facility] | + + + | Address | [address] | | | [place] [address] | + + + | Phone | | + + + Care Team Providers + + + + | Care Dry Cleaner Hand Name | Role | Phone | + + + + Unavailable | Unavailable | + + + + Unavailable | Unavailable | + + + + Unavailable | Unavailable | + + + + Allergies and Intolerances + + + + + | date | description | facility | type | + + + + + | (no date) | Alendronate sodium | [facility] | (unknown) | | | [facility] Hospital | | + + + + + | (no date) | alendronate sodium | [facility] | (unknown) | | | | Hospital | | + + + + + | (no date) | Pain | [facility] | (unknown) | | | | Hospital | | + + + + + | (no date) | Mild | [facility] | (unknown) | | | | Hospital | | + + + + + | (no date) | Alendronate sodium | [facility] | (unknown) | | | | Hospital | | + + + + + | (no date) | Alendronate sodium | [facility] | (unknown) | | | | Hospital | | + + + + + Encounters No information. Functional Status No information. Immunizations + + + + | date | description | facility | + + + + | 2022-11-07 00:00 | No vaccine administered | [facility] | + + + + Medications + + + + | date | description | facility | + + + + | 2022-11-07 00:00 | CYANOCOBALAMIN (VITAMIN | [facility] | | | B-12) | | + + + + | 2022-11-07 00:00 | vitamin B12 0.05 MG Oral | [facility] | | | Tablet | | + + + + | 2022-11-07 00:00 | SIMVASTATIN | [facility] | + + + + | 2022-11-07 00:00 | simvastatin 40 MG Oral | [facility] | | | Tablet [Zocor] | | + + + + | 2022-11-07 00:00 | ALLOPURINOL | [facility] | + + + + | 2022-11-07 00:00 | allopurinol 100 MG Oral | [facility] | | | Tablet | | + + + + | 2022-11-07 00:00 | ALLOPURINOL | [facility] | + + + + | 2022-11-07 00:00 | allopurinol 300 MG Oral | [facility] | | | Tablet | | + + + + | 2022-11-07 00:00 | CARVEDILOL | [facility] | + + + + | 2022-11-07 00:00 | carvedilol 12.5 MG Oral | [facility] | | | Tablet | | + + + + | 2022-11-07 00:00 | CEFDINIR | [facility] | + + + + | 2022-11-07 00:00 | cefdinir 300 MG Oral | [facility] | | | Capsule | | + + + + | 2022-11-07 00:00 | FINASTERIDE | [facility] | + + + + | 2022-11-07 00:00 | finasteride 5 MG Oral | [facility] | | | Tablet [Proscar] | | + + + + | 2022-11-07 00:00 | NITROGLYCERIN | [facility] | + + + + | 2022-11-07 00:00 | nitroglycerin 0.4 MG | [facility] | | | Sublingual Tablet | | | | [Nitrostat] | | + + + + | 2019-06-05 00:00 | CEPHALEXIN | [facility] | + + + + | 2019-06-05 00:00 | cephalexin 500 MG Oral | [facility] | | | Capsule [Keflex] | | + + + + | 2022-11-07 00:00 | ASPIRIN | [facility] | + + + + | 2022-11-07 00:00 | aspirin 81 MG Delayed | [facility] | | | Release Oral Tablet | | + + + + | 2017-08-27 00:00 | CEPHALEXIN | [facility] | + + + + | 2017-11-06 00:00 | CEPHALEXIN | [facility] | + + + + | 2017-08-27 00:00 | cephalexin 500 MG Oral | [facility] | | | Capsule | | + + + + | 2017-11-06 00:00 | cephalexin 500 MG Oral | [facility] | | | Capsule | | + + + + | 2022-11-07 00:00 | CLOPIDOGREL BISULFATE | [facility] | + + + + | 2022-11-07 00:00 | clopidogrel 75 MG Oral | [facility] | | | Tablet | | + + + + | 2022-11-07 00:00 | HYDROCHLOROTHIAZIDE | [facility] | + + + + | 2022-11-07 00:00 | hydrochlorothiazide 25 MG | [facility] | | | Oral Tablet | | + + + + | 2022-11-07 00:00 | 24 HR isosorbide | [facility] | | | mononitrate 30 MG Extended | | | | Release Oral Tab | | + + + + | 2022-11-07 00:00 | ISOSORBIDE MONONITRATE | [facility] | + + + + | 2022-11-07 00:00 | TADALAFIL | [facility] | + + + + | 2022-11-07 00:00 | tadalafil 5 MG Oral Tablet | [facility] | | | [Cialis] | | + + + + | 2022-11-07 00:00 | LUTEIN | [facility] | + + + + | 2022-11-07 00:00 | lutein 20 MG Oral Tablet | [facility] | + + + + | 2022-11-07 00:00 | Berberine 90 MG / | [facility] | | | Cholecalciferol 500 UNT / | | | | Hops extract 370 | | + + + + | 2022-11-07 00:00 | VIT D3 & K/BERBERINE | [facility] | | | HCL/HOPS | | + + + + | 2022-11-07 00:00 | TAMSULOSIN HCL | [facility] | + + + + | 2022-11-07 00:00 | tamsulosin hydrochloride | [facility] | | | 0.4 MG Oral Capsule | | | | [Flomax] | | + + + + | 2022-11-07 00:00 | LEVOTHYROXINE SODIUM | [facility] | + + + + | 2022-11-07 00:00 | levothyroxine sodium 0.05 | [facility] | | | MG Oral Tablet [Synthroid] | | + + + + | 2022-11-07 00:00 | LOSARTAN POTASSIUM | [facility] | + + + + | 2022-11-07 00:00 | losartan potassium 25 MG | [facility] | | | Oral Tablet [Cozaar] | | + + + + | 2022-11-07 00:00 | LOSARTAN POTASSIUM | [facility] | + + + + | 2022-11-07 00:00 | losartan potassium 50 MG | [facility] | | | Oral Tablet [Cozaar] | | + + + + Problems + + + + | date | description | facility | + + + + | 2014-12-17 00:00 | Hyperventilation syndrome | [facility] | + + + + | 2014-12-17 00:00 | Opiate withdrawal | [facility] | + + + + | 2014-12-17 00:00 | Opioid withdrawal | [facility] | + + + + | 2014-12-17 00:00 | Anxiety about health | [facility] | + + + + | 2014-12-17 00:00 | 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 | | + + + + | 2017-03-12 00:00 | Systolic essential | [facility] | | | hypertension | | + + + + | 2017-08-27 00:00 | Acute UTI | [facility] | + + + + | 2017-08-27 00:00 | Acute urinary tract | [facility] | | | infection | | + + + + | 2017-08-27 00:00 | Malaise | [facility] | + + + + | 2017-08-27 00:00 | Chills | [facility] | + + + + | 2018-06-10 00:00 | Nonspecific chest pain | [facility] | + + + + | 2018-06-10 00:00 | Weakness | [facility] | + + + + | 2019-06-22 00:00 | UTI (urinary tract | [facility] | | | infection) | | + + + + | 2019-06-22 00:00 | Asymptomatic hypertension | [facility] | + + + + | 2019-06-22 00:00 | Urinary tract infection | [facility] | + + + + | 2022-11-07 09:09 | HYPOTHYROIDISM, | [facility] | | | UNSPECIFIED | | + + + + | 2022-11-07 09:09 | PURE HYPERCHOLESTEROLEMIA, | [facility] | | | UNSPECIFIED | | + + + + | 2022-11-07 09:09 | Essential (primary) | [facility] | | | hypertension | | + + + + | 2022-11-07 09:09 | ASSISTED (CURRENT) USE OF | [facility] | | | ASPIRIN | | + + + + | 2022-11-07 09:09 | OTHER ASSISTED (CURRENT) | [facility] | | | DRUG THERAPY | | + + + + | 2022-11-07 09:09 | ALLERGY STATUS TO OTH | [facility] | | | DRUG/MEDS/BIOL SUBST STATUS | | | | | | + + + + Procedures No information. Results/Labs No information. Social History + + + + | date | description | facility | + + + + | 2022-11-07 00:00 | Never smoker | [facility] | + + + + Vital Signs [...] 158.07 | lb | + + + +---------+"
--- OUTSIDE RECORDS SUMMARY | ~2022-12-04 | XMS | Continuity of Care Document ---
Demographics + + + | Address | [address] | | | [place] [address] | + + + | Preferred Language | Unknown | + + + | Marital Status | | + + + | Sabianist Affiliation | Unknown | + + + | Race | White | + + + | Ethnic Group | Not or | + + + Author + + + | Author | [facility] | + + + | Organization | [facility] | + + + | Address | [address] | | | [place] [address] | + + + | Phone | | + + + Care Team Providers + + + + | Care Packing Room Worker Name | Role | Phone | [...] (no date) | Alendronate sodium | [facility] | (unknown) | | | | Hospital | | + + + + + | (no date) | alendronate sodium | [facility] | (unknown) | | | | Hospital | | + + + + + | (no date) | Pain | [facility] | (unknown) | | | | Hospital | | + + + + + | (no date) | Mild | [facility] | (unknown) | | | | Hospital | | + + + + + | (no date) | Alendronate sodium | [facility] | (unknown) | | | | Hospital | | + + + + + | (no date) | Alendronate sodium | [facility] | (unknown) | | | | Hospital | | + + + + + Encounters No information. Functional Status No information. Immunizations + + + + | date | description | facility | + + + + | 2022-11-07 00:00 | No vaccine administered | [facility] | + + + + Medications + + + + | date | description | facility | + + + + | 2022-11-07 00:00 | CYANOCOBALAMIN (VITAMIN | [facility] | | | B-12) | | + + + + | 2022-11-07 00:00 | vitamin B12 0.05 MG Oral | [facility] | | | Tablet | | + + + + | 2022-11-07 00:00 | SIMVASTATIN | [facility] | + + + + | 2022-11-07 00:00 | simvastatin 40 MG Oral | [facility] | | | Tablet [Zocor] | | + + + + | 2022-11-07 00:00 | ALLOPURINOL | [facility] | + + + + | 2022-11-07 00:00 | allopurinol 100 MG Oral | [facility] | | | Tablet | | + + + + | 2022-11-07 00:00 | ALLOPURINOL | [facility] | + + + + | 2022-11-07 00:00 | allopurinol 300 MG Oral | [facility] | | | Tablet | | + + + + | 2022-11-07 00:00 | CARVEDILOL | [facility] | + + + + | 2022-11-07 00:00 | carvedilol 12.5 MG Oral | [facility] | | | Tablet | | + + + + | 2022-11-07 00:00 | CEFDINIR | [facility] | + + + + | 2022-11-07 00:00 | cefdinir 300 MG Oral | [facility] | | | Capsule | | + + + + | 2022-11-07 00:00 | FINASTERIDE | [facility] | + + + + | 2022-11-07 00:00 | finasteride 5 MG Oral | [facility] | | | Tablet [Proscar] | | + + + + | 2022-11-07 00:00 | NITROGLYCERIN | [facility] | + + + + | 2022-11-07 00:00 | nitroglycerin 0.4 MG | [facility] | | | Sublingual Tablet | | | | [Nitrostat] | | + + + + | 2019-06-05 00:00 | CEPHALEXIN | [facility] | + + + + | 2019-06-05 00:00 | cephalexin 500 MG Oral | [facility] | | | Capsule [Keflex] | | + + + + | 2022-11-07 00:00 | ASPIRIN | [facility] | + + + + | 2022-11-07 00:00 | aspirin 81 MG Delayed | [facility] | | | Release Oral Tablet | | + + + + | 2017-08-27 00:00 | CEPHALEXIN | [facility] | + + + + | 2017-11-06 00:00 | CEPHALEXIN | [facility] | + + + + | 2017-08-27 00:00 | cephalexin 500 MG Oral | [facility] | | | Capsule | | + + + + | 2017-11-06 00:00 | cephalexin 500 MG Oral | [facility] | | | Capsule | | + + + + | 2022-11-07 00:00 | CLOPIDOGREL BISULFATE | [facility] | + + + + | 2022-11-07 00:00 | clopidogrel 75 MG Oral | [facility] | | | Tablet | | + + + + | 2022-11-07 00:00 | HYDROCHLOROTHIAZIDE | [facility] | + + + + | 2022-11-07 00:00 | hydrochlorothiazide 25 MG | [facility] | | | Oral Tablet | | + + + + | 2022-11-07 00:00 | 24 HR isosorbide | [facility] | | | mononitrate 30 MG Extended | | | | Release Oral Tab | | + + + + | 2022-11-07 00:00 | ISOSORBIDE MONONITRATE | [facility] | + + + + | 2022-11-07 00:00 | TADALAFIL | [facility] | + + + + | 2022-11-07 00:00 | tadalafil 5 MG Oral Tablet | [facility] | | | [Cialis] | | + + + + | 2022-11-07 00:00 | LUTEIN | [facility] | + + + + | 2022-11-07 00:00 | lutein 20 MG Oral Tablet | [facility] | + + + + | 2022-11-07 00:00 | Berberine 90 MG / | [facility] | | | Cholecalciferol 500 UNT / | | | | Hops extract 370 | | + + + + | 2022-11-07 00:00 | VIT D3 & K/BERBERINE | [facility] | | | HCL/HOPS | | + + + + | 2022-11-07 00:00 | TAMSULOSIN HCL | [facility] | + + + + | 2022-11-07 00:00 | tamsulosin hydrochloride | [facility] | | | 0.4 MG Oral Capsule | | | | [Flomax] | | + + + + | 2022-11-07 00:00 | LEVOTHYROXINE SODIUM | [facility] | + + + + | 2022-11-07 00:00 | levothyroxine sodium 0.05 | [facility] | | | MG Oral Tablet [Synthroid] | | + + + + | 2022-11-07 00:00 | LOSARTAN POTASSIUM | [facility] | + + + + | 2022-11-07 00:00 | losartan potassium 25 MG | [facility] | | | Oral Tablet [Cozaar] | | + + + + | 2022-11-07 00:00 | LOSARTAN POTASSIUM | [facility] | + + + + | 2022-11-07 00:00 | losartan potassium 50 MG | [facility] | | | Oral Tablet [Cozaar] | | + + + + Problems + + + + | date | description | facility | + + + + | 2014-12-17 00:00 | Hyperventilation syndrome | [facility] | + + + + | 2014-12-17 00:00 | Opiate withdrawal | [facility] | + + + + | 2014-12-17 00:00 | Opioid withdrawal | [facility] | + + + + | 2014-12-17 00:00 | Anxiety about health | [facility] | + + + + | 2014-12-17 00:00 | 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 | | + + + + | 2017-03-12 00:00 | 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 | | + + + + | 2017-08-27 00:00 | Acute UTI | [facility] | + + + + | 2017-08-27 00:00 | Acute urinary tract | [facility] | | | infection | | + + + + | 2017-08-27 00:00 | Malaise | [facility] | + + + + | 2017-08-27 00:00 | Chills | [facility] | + + + + | 2018-06-10 00:00 | Nonspecific chest pain | [facility] | + + + + | 2018-06-10 00:00 | Weakness | [facility] | + + + + | 2019-06-22 00:00 | UTI (urinary tract | [facility] | | | infection) | | + + + + | 2019-06-22 00:00 | Asymptomatic hypertension | [facility] | + + + + | 2019-06-22 00:00 | Urinary tract infection | [facility] | + + + + | 2022-11-07 09:09 | HYPOTHYROIDISM, | [facility] | | | UNSPECIFIED | | + + + + | 2022-11-07 09:09 | PURE HYPERCHOLESTEROLEMIA, | [facility] | | | UNSPECIFIED | | + + + + | 2022-11-07 09:09 | Essential (primary) | [facility] | | | hypertension | | + + + + | 2022-11-07 09:09 | [facility] (CURRENT) USE OF | [facility] | | | ASPIRIN | | + + + + | 2022-11-07 09:09 | OTHER [facility] (CURRENT) | [facility] | | | DRUG [...] 2022-11-07 00:00 | Never smoker | [facility] | + + + + Vital [...]
--- OUTSIDE RECORDS SUMMARY | 2022-12-04 13:01 | XMS ---
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 Noe VISIT COUNT (12 MO.) 2 [facility] TOTAL 2 NOTE: Visits indicate total known visits. 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
[2022-12-04] MEDS ORDERED: COZAAR50 MG PO (16:56)
[2022-12-04] MEDS ORDERED: COREG6.25 MG PO (16:57)
[2022-12-04 19:08] VITALS: BP 177/100
--- NOTE | 2022-12-09 19:07 | EKG ---
[facility] [address] [place] [address] Signed Sinus bradycardia with occasional premature ventricular complexes Otherwise normal ECG When compared with ECG of 30-JUN-2021 14:02, premature ventricular complexes are now present Confirmed by JULEE GASPAR MD ([id number]) on 12/09/2022 7:07:46 PM Electronically Signed By: JULEE GASPAR 12/09/22 1907 PATIENT NAME: SKYLER LIMON DILLONDENISANDREEA Electrocardiogram DATE OF : 33 PHYSICIAN: JULEE GASPAR REPORT #: [id number] REPORT IS CONFIDENTIAL AND NOT TO BE RELEASED WITHOUT AUTHORIZATION
== END 2022-12-04 19:09 | disposition home or self-care (01) ==
LOC: ED 12:52
DX: I10 Essential (primary) hypertension (principal); R51.9 Headache, unspecified; E03.9 Hypothyroidism, unspecified; Z79.899 Other long term (current) drug therapy; Z79.82 Long term (current) use of aspirin; Z88.8 Allergy status to other drugs, medicaments and biological substances
CPT/HCPCS: 36415; 70450; 80053; 84484; 85025; 85651; 93005; 93010; 99284 25; A9270

== ENCOUNTER 2023-01-13 10:13 | Day surgery (SDC) | payer OTHER, MEDICARE ==
[2023-01-06 10:21] VITALS: BP 180/85
[~2023-01-13] VITALS: Ht 180.3 cm; Wt 70.0 kg
[~2023-01-13 10:13] MED LIST changes: +COREG6.25 MG PO
[2023-01-13 10:54] VITALS: BP 172/64
[2023-01-13 10:59] LABS: BASOPHILS 0.8 % (0-2); BASOPHILS, ABSOLUTE 0 %; EOSINOPHILS 2.7 % (0-6); EOSINOPHILS, ABSOLUTE 0.1; HEMATOCRIT 33.4 % (35.0-50.0); HEMOGLOBIN 11.1 g/dL (12.0-18.0); LYMPHOCYTES 14.5 % (24-44); LYMPHOCYTES, ABSOLUTE 0.8; MCHC 33.1 g/dl (30-36); MCV 96.9 fl (81-99); MONOCYTES 11.2 % (0-12); MONOCYTES, ABSOLUTE 0.6; NEUTROPHILS 70.8 % (39-80); NEUTROPHILS, ABSOLUTE 3.7; PLATELET COUNT 192 K/uL (140-440); RBC 3.45 M/ul (4.3-5.7); RDW 14.6 (10.5-15.0)
[2023-01-13 11:12] LABS: ALBUMIN 3.4 g/dL (3.4-5.0); ALBUMIN/GLOBULIN RATIO 1.17 (1.1-2.4); ANION GAP 11.3 (7-21); BILIRUBIN, TOTAL 0.6 ng/dL (0.2-1.0); BUN/CREATININE RATIO 18.11 (6.0-28.6); CALCIUM 9.1 mg/dL (8.5-10.1); CREATININE, SERUM 1.27 mg/dL (0.70-1.30); POTASSIUM 4.3 mmol/L (3.5-5.1); PROTEIN, TOTAL 6.3 g/dL (6.4-8.2)
--- NOTE | 2023-01-13 12:26 | NUR ---
01/13/23 1226 Kathy Hardy 1220-PT TO PACU IN PRONE POSITION. EYES CLOSED. PT RESPONDS TO VERBAL AND TACTILE STIMULI. SAYS "YES" TO COMFORT. BREATHING EASY AND UNLABORED. SPO2 >95% ON 4 L O2 VIA NC. 1225-PT REPOSITIONS SELF SOMEWHAT IN BED BUT REMAINS IN THE PRONE POSITION. PT REPORTS COMFORT. BREATHING EASY AND UNLABORED. SPO2 >95%. O2 TITRATED DOWN TO 2 L O2 VIA NC.
[2023-01-13 13:13] VITALS: BP 178/73
[2023-01-14 03:04] LABS: ERYTHROPOIETIN 12 mU/mL (4-27)
[2023-01-14 08:48] LABS: TESTOSTERONE BY IMMUNOASSAY 616 ng/dL (300-720)
[2023-01-15 18:35] LABS: ALBUMIN 3.75 g/dL (3.75-5.01); ALPHA 1 GLOBULIN 0.28 g/dL (0.19-0.46); ALPHA 2 GLOBULIN 0.68 g/dL (0.48-1.05); BETA GLOBULIN 0.55 g/dL (0.48-1.10); GAMMA 0.74 g/dL (0.62-1.51); IMMUNOFIXATION REFLEX IFE Done (())
[2023-01-15 18:41] LABS: IMMUNOGLOBULIN A 114 mg/dL (68-408); IMMUNOGLOBULIN G 715 mg/dL (768-1632); IMMUNOGLOBULIN M 44 mg/dL (35-263)
--- NOTE | 2023-01-19 13:26 | PATH ---
[facility] [address] [place] [address] Signed SPECIMEN(S): A BONE MARROW - CORE SPECIMEN(S): B BONE MARROW - ASPIRATION SPECIMEN(S): C FLOW CYTOMETRY, BM EDTA ASP CLINICAL HISTORY: Bone marrow biopsy. 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 DIAGNOSIS SUMMARY: Peripheral blood - Mild normocytic, normochromic anemia. Bone marrow aspirate smears, clot section/cell block, and trephine biopsy: - Slightly hypercellular bone marrow with increase in plasma cells. - Negative for dyspoiesis. - Please see Diagnostic Comment. DIAGNOSTIC COMMENT: Bone marrow morphologic evaluation is significant for slightly increased cellularity with increased number of plasma cells that is confirmed by stain for CD138, estimated to comprise 5-7% of the marrow cellularity. Concurrent flow cytometry identified monotypic, kappa-restricted plasma cells. 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 Correlation with clinical, laboratory, and radiologic findings is needed for further assessment/calcification of this patient's plasma cell dyscrasia. Cytogenetic features and FISH panel for multiple myeloma are pending and will be reported in an addendum. Flow cytometry shows a minute population of monotypic kappa-restricted B-cells. However, by morphology no increase or large aggregates of B-cells are seen. Also, immunohistochemical stains are negative for increase in B-cells. NA:smn PERIPHERAL BLOOD: HEMOGRAM ([facility]; 01/13/2023): WBC 5.2 K/uL, RBC 3.45 M/uL, HGB 11.1 g/dL, HCT 33.4%, MCV 96.9 fL, MCH 32.0 pg, MCHC 33.1 g/dL, RDW 14.6%, PLT 192 K/uL, MPV 7.5 fL. DIFFERENTIAL COUNT (manual): 61% neutrophils, 27% lymphocytes, 6% monocytes, and 6% eosinophils. Review of peripheral blood smear and CBC data demonstrate that the RBCs are slightly decreased in number with mild normocytic, normochromic anemia present. No rouleaux formation is identified. No PATIENT NAME: SKYLER LIMON PATHOLOGY DATE OF : 33 REPORT #: [id number] PHYSICIAN: ANA WOLFE PCP: ROXANA TEJADA REPORT IS CONFIDENTIAL AND NOT TO BE RELEASED WITHOUT AUTHORIZATION [facility] [address] [place], [place] [address] Signed nucleated RBCs are encountered. The WBCs are normal in number and distribution. The neutrophils show unremarkable morphology. No immature cells are seen. The lymphocytes show a spectrum of reactive morphology. The platelets are normal in number and unremarkable in morphology. BONE MARROW: BONE MARROW ASPIRATE SMEARS: The bone marrow aspirate smears are adequately cellular for evaluation. Trilineage hematopoiesis is present with progressive ordinary maturation. There is no increase in blasts noted. The M:E ratio appears normal. The lymphocytes are normal in number and mature in morphology. Scattered plasma cells are seen and appear slightly increased in number, estimated at 7% of marrow cellularity. The plasma cells show mature morphology. The megakaryocytes are scattered and appear normal in number and unremarkable in morphology. BONE MARROW DIFFERENTIAL: 1% blasts, 2% promyelocytes, 7% myelocytes, 26% neutrophils, 20% lymphocytes, 3% monocytes, 1% eosinophils, 7% plasma cells, and 33% erythroid. BONE MARROW CORE BIOPSY AND CLOT SECTION: The bone marrow core biopsy demonstrates slightly hypercellular bone marrow for age with an averaging cellularity of 30%. Trilineage hematopoiesis is present with progressive ordinary maturation. The megakaryocytes are scattered and appear normal in number and morphology. The clot section shows similar findings. SPECIAL STAINS (with appropriately active control): - Iron (aspirate smears): Storage iron present, negative for ring sideroblasts. - Iron (block B1): Storage iron present. - Reticulin stain (block A1): No increase in bone marrow reticulin fibrosis. IMMUNOHISTOCHEMICAL STAINS (performed on block A1, with appropriately active control): - CD34: Highlights scattered positive cells (1%). - CD117: Appears to be positive in plasma cells (7%). - Myeloperoxidase: Highlights myeloid precursors. - CD71: Highlights erythroid precursors. - Factor VIII: Highlights many megakaryocytes. - CD20: Highlights scattered few B-cells, negative for large aggregates. - CD3: Highlights many T-cells including lymphoid aggregates. - CD138: Highlights increased number of plasma cells (5-7%). PATIENT NAME: SKYLER LIMON PATHOLOGY DATE OF : 33 REPORT #: [id number] PHYSICIAN: ANA PATHOLOGY PCP: ROXANA TEJADA REPORT IS CONFIDENTIAL AND NOT TO BE RELEASED WITHOUT AUTHORIZATION [facility] [address] [place] [address] Signed ADDITIONAL IMMUNOHISTOCHEMICAL STAINS (performed on block B1, with appropriately active control): - CD20/PAX5: Highlights scattered B-cells with no large aggregates present. - CD5/CD3: Positive in many T-cells including lymphoid aggregates. - CD23: Negative. - CD138: Highlights increased plasma cells (5-7%). - MARICARMEN kappa/Lambda: Suggestive of kappa monotypic pattern. NA:smn FLOW CYTOMETRY: Bone marrow aspirate, flow cytometry: - Monotypic B-cell population detected. - Monotypic plasma cells detected. - No atypical T-cell population. - No increase in blasts (1.4% myeloblasts). - Normal myeloid maturation. - See Comment. COMMENT: A CD5+ monoclonal B-cell subset population is detected; kappa restricted, comprising 10% of lymphocytes (1% of total events). The differential diagnosis includes chronic lymphocytic leukemia (CLL) versus monoclonal B-cell lymphocytosis. Correlation with morphologic finding is needed for further assessment. About 2% of total events are kappa-restricted monotypic plasma cells. Correlation with clinical and histologic findings is needed for further characterization of this patient's plasma cell dyscrasia. Flow cytometry analysis often underestimates the amount of plasma cells. FLOW CYTOMETRY ANALYSIS: FLOW DIFFERENTIAL (% Total CD45 vs. SSC gating): Myeloid 70%; Lymphoid 8%; Monocyte 2%; Dim CD45/Blast 1.4%; Plasma Cells 2.0%. Cell Count: 7.5 x 10*3/uL. POPULATION ANALYSIS: BLASTS: Analysis of the dim CD45 gate demonstrates 1.4% myeloblasts by CD34/CD117 and 2.1% hematogones. LYMPHOID CELLS: The lymphocyte gate comprises 8% of total events and includes 65% T-cells with a CD4:CD8 ratio of 0.8:1 and normal scales T-cell antigen expression. 20% of lymphocytes are B-cells. A kappa-restricted B-cell subset is detected (10% of lymphocytes, 1% of total events) expressing CD45 MOD, CD19 DIM, CD20 MOD, CD5 DIM, CD23 DIM (variable) and KAPPA BR while negative for CD10 and CD38. The remainders are NK cells. PATIENT NAME: SKYLER LIMON PATHOLOGY DATE OF : 33 REPORT #: [id number] PHYSICIAN: ANA PATHOLOGY PCP: ROXANA TEJADA REPORT IS CONFIDENTIAL AND NOT TO BE RELEASED WITHOUT AUTHORIZATION [facility] [address] [place], [place] [address] Signed MYELOID CELLS: The myeloid population comprises 70% of the total events. No aberrant immunophenotypic expression is detected. MONOCYTES: The monocyte population comprises 2% of the total events. Monocytes are not increased. No aberrant immunophenotypic expression is detected. PLASMA CELLS: An increased number of plasma cells are observed in the screening gate of CD45 neg-dim/CD38. For this reason, select additional antibodies are run to further characterize the plasma cells. 2.0% ckappa-restricted plasma cells are detected (n=996) expressing CD45 DIM-NEG, CD19 DIM, CD38 BR, CD138 DIM and cKAPPA MOD while negative for CD20 and CD56. Initial Antibodies Used: KAPPA, LAMBDA, CD20, CD10, CD19, CD23, CD38, CD16, CD56, CD8, CD5, CD2, CD4, CD7, CD3, CD14, CD33, CD13, HLADR, CD34, CD117, CD15, CD45. Additional Antibodies (necessary for further plasma cell analysis): ckappa, clambda, CD138. Total Antibodies Used: 26. DKW FINAL DIAGNOSIS PERFORMED BY: Rina Antony MD, Jan 14 2023 5:52PM CYTOGENETICS: Pending, to be reported by addendum. FISH ANALYSIS: Pending, to be reported by addendum. GROSS DESCRIPTION: Two specimens are received in two containers. A. The specimen, labeled and designated "Alex, bone marrow core biopsy," is received in formalin and consists of a red-pink core of bone (2.0 cm in length x up to 0.3 cm in diameter). The specimen is submitted entirely in cassette (A1) following decalcification in Immunocal. B. The specimen, labeled and designated "Alex, bone marrow clot biopsy," is received in formalin and consists of a portion of red-brown clot-like material (2.8 x 1.0 x 0.4 cm in aggregate). The specimen is submitted entirely in cassette (B1). VB (under the direct supervision of a pathologist) The Gross Description was prepared using a voice recognition system. The report was reviewed for accuracy; however, sound-alike word errors, addition and/or deletions may occur. If there is any question about this report, please contact Client Services. PATIENT NAME: SKYLER LIMON PATHOLOGY DATE OF : 33 REPORT #: [id number] PHYSICIAN: ANA WOLFE PCP: ROXANA TEJADA REPORT IS CONFIDENTIAL AND NOT TO BE RELEASED WITHOUT AUTHORIZATION [address] [address] Signed ADDITIONAL NOTES: Immunohistochemical and/or in situ hybridization studies were performed on this case with the appropriate positive controls that react as expected. This test was developed and its performance characteristics determined by [facility]. It has not been cleared or approved by the U.S. Food and Drug Administration. The FDA has determined that such clearance or approval is not necessary. This test is used for clinical purposes. It should not be regarded as investigational or for research. [facility] is certified under the Clinical Laboratory Improvement Amendments of 1987 (CLIA) as qualified to perform high complexity clinical laboratory testing. This assay has not been validated for specimens that have been decalcified. In this case, certain antibodies were performed by both immunohistochemistry and flow cytometry analysis because flow cytometry analysis did not fully explain all the light microscopic findings. Immunohistochemistry aided in the analysis. Both methods are deemed medically necessary in this case. This test was developed and its performance characteristics determined by [facility]. It has not been cleared or approved by the US Food and Drug Administration. The FDA does not require this test to go through premarket FDA review. This test is used for clinical purposes. It should not be regarded as investigational or for research. This laboratory is certified under the Clinical Laboratory Improvement Amendments (CLIA) as qualified to perform high complexity clinical laboratory testing. PERFORMING LABORATORY: The technical preparation was performed by [facility], [address] [place] [address] (CLIA#: [id number]). Professional interpretation was performed by [facility], [address] [place] [address] (CLIA# [id number]). Technical component was performed by [facility], [address] [place] [address] (CLIA# [id number]). Professional interpretation was performed by [facility], [address] [place] [address] (CLIA# [id number]). IMAGES: A: [id number]: [id number] PATIENT NAME: SKYLER LIMON PATHOLOGY DATE OF : 33 REPORT #: [id number] PHYSICIAN: ANA WOLFE PCP: ROXANA TEJADA REPORT IS CONFIDENTIAL AND NOT TO BE RELEASED WITHOUT AUTHORIZATION [address] [address] Signed Diagnostician: Rina Antony MD Pathologist Electronically Signed 01/19/2023 Copies: ~ PATIENT NAME: SKYLER LIMON PATHOLOGY DATE OF : 33 REPORT #: [id number] PHYSICIAN: ANA WOLFE PCP: ROXANA TEJADA REPORT IS CONFIDENTIAL AND NOT TO BE RELEASED WITHOUT AUTHORIZATION
== END 2023-01-13 13:15 | disposition home or self-care (01) ==
LOC: DS 10:13 → OPS 10:13 → DS 12:00 → OPS 12:00
PROVIDERS: ATTEND Specialist
PROC: 079T3ZX Drainage of Bone Marrow, Percutaneous Approach, Diagnostic (ICD-10-PCS; principal; 2023-01-13 12:00)
DX: D61.9 Aplastic anemia, unspecified (principal)
CPT/HCPCS: 01112; 36415; 80053; 82668; 83615; 84403; 85025; 85045; J2704; J7121

== ENCOUNTER 2023-01-28 10:57 | Inpatient (IN) | payer OTHER ==
[~2023-01-28] VITALS: Ht 180.3 cm; Wt 69.1 kg
--- OUTSIDE RECORDS SUMMARY | ~2023-01-28 | XMS | Continuity of Care Document ---
Demographics + + + | Address | [address] | | | [place] [address] | + + + | Preferred Language | Unknown | + + + | Marital Status | | + + + | Anabaptist Affiliation | Unknown | + + + | Race | White | + + + | Ethnic Group | Not or | + + + Author + + + | Author | [facility] | + + + | Organization | [facility] | + + + | Address | [address] | | | [place] [address] | + + + | Phone | | + + + Care Team Providers + + + + | Care De Icer Element Winder Name | Role | Phone | + + + + Unavailable | Unavailable | + + + + Unavailable | Unavailable | + + + + Unavailable | Unavailable | + + + + Unavailable | Unavailable | + + + + Allergies and Intolerances + + + + + + | date | description | facility | reaction | severity | + + + + + + | (no date) | Alendronate | [facility] | (no reaction) | (no severity) | | | sodium [facility] | | | + + + + + + | (no date) | alendronate | [facility] | (no reaction) | (no severity) | | | sodium | [facility] | | | + + + + + + | (no date) | Pain | [facility] | (no reaction) | (no severity) | | | [facility] | | | + + + + + + | (no date) | Mild | [facility] | (no reaction) | (no severity) | | | [facility] | | | + + + + + + | (no date) | Alendronate | [facility] | (no reaction) | (no severity) | | | sodium | [facility] | | | + + + + + + | (no date) | Alendronate | [facility] | (no reaction) | (no severity) | | | sodium | [facility] | | | + + + + + + | (no date) | alendronate | [facility] | (no reaction) | (no severity) | | | sodium | | | | + + + + + + Encounters No information. Functional Status No information. Immunizations + + + + | date | description | facility | + + + + | 2022-11-07 00:00 | No vaccine administered | [facility] | + + + + | 2022-12-04 00:00 | No vaccine administered | [facility] | + + + + Medications + + + + | date | description | facility | + + + + | 2022-11-07 00:00 | CYANOCOBALAMIN (VITAMIN | [facility] | | | B-12) | | + + + + | 2022-12-04 00:00 | CYANOCOBALAMIN (VITAMIN | [facility] | | | B-12) | | + + + + | 2022-11-07 00:00 | vitamin B12 0.05 MG Oral | [facility] | | | Tablet | | + + + + | 2022-12-04 00:00 | vitamin B12 0.05 MG Oral | [facility] | | | Tablet | | + + + + | 2022-11-07 00:00 | SIMVASTATIN | [facility] | + + + + | 2022-12-04 00:00 | SIMVASTATIN | [facility] | + + + + | 2023-01-13 00:00 | SIMVASTATIN | [facility] | + + + + | 2022-11-07 00:00 | simvastatin 40 MG Oral | [facility] | | | Tablet [Zocor] | | + + + + | 2022-12-04 00:00 | simvastatin 40 MG Oral | [facility] | | | Tablet [Zocor] | | + + + + | 2022-11-07 00:00 | ALLOPURINOL | [facility] | + + + + | 2022-12-04 00:00 | ALLOPURINOL | [facility] | + + + + | 2023-01-13 00:00 | ALLOPURINOL | [facility] | + + + + | 2022-11-07 00:00 | allopurinol 100 MG Oral | [facility] | | | Tablet | | + + + + | 2022-12-04 00:00 | allopurinol 100 MG Oral | [facility] | | | Tablet | | + + + + | 2022-11-07 00:00 | ALLOPURINOL | [facility] | + + + + | 2022-12-04 00:00 | ALLOPURINOL | [facility] | + + + + | 2023-01-13 00:00 | ALLOPURINOL | [facility] | + + + + | 2022-11-07 00:00 | allopurinol 300 MG Oral | [facility] | | | Tablet | | + + + + | 2022-12-04 00:00 | allopurinol 300 MG Oral | [facility] | | | Tablet | | + + + + | 2022-11-07 00:00 | CARVEDILOL | [facility] | + + + + | 2022-12-04 00:00 | CARVEDILOL | [facility] | + + + + | 2023-01-13 00:00 | CARVEDILOL | [facility] | + + + + | 2022-11-07 00:00 | carvedilol 12.5 MG Oral | [facility] | | | Tablet | | + + + + | 2022-12-04 00:00 | carvedilol 12.5 MG Oral | [facility] | | | Tablet | | + + + + | 2022-11-07 00:00 | CEFDINIR | [facility] | + + + + | 2022-12-04 00:00 | CEFDINIR | [facility] | + + + + | 2023-01-13 00:00 | CEFDINIR | [facility] | + + + + | 2022-11-07 00:00 | cefdinir 300 MG Oral | [facility] | | | Capsule | | + + + + | 2022-12-04 00:00 | cefdinir 300 MG Oral | [facility] | | | Capsule | | + + + + | 2022-11-07 00:00 | FINASTERIDE | [facility] | + + + + | 2022-12-04 00:00 | FINASTERIDE | [facility] | + + + + | 2022-11-07 00:00 | finasteride 5 MG Oral | [facility] | | | Tablet [Proscar] | | + + + + | 2022-12-04 00:00 | finasteride 5 MG Oral | [facility] | | | Tablet [Proscar] | | + + + + | 2022-11-07 00:00 | NITROGLYCERIN | [facility] | + + + + | 2022-12-04 00:00 | NITROGLYCERIN | [facility] | + + + + | 2023-01-13 00:00 | NITROGLYCERIN | [facility] | + + + + | 2022-11-07 00:00 | nitroglycerin 0.4 MG | [facility] | | | Sublingual Tablet | | | | [Nitrostat] | | + + + + | 2022-12-04 00:00 | nitroglycerin 0.4 MG | [facility] | | | Sublingual Tablet | | | | [Nitrostat] | | + + + + | 2019-06-05 00:00 | CEPHALEXIN | [facility] | + + + + | 2019-06-05 00:00 | CEPHALEXIN | [facility] | + + + + | 2019-06-05 00:00 | cephalexin 500 MG Oral | [facility] | | | Capsule [Keflex] | | + + + + | 2022-12-04 00:00 | CARVEDILOL | [facility] | + + + + | 2023-01-13 00:00 | CARVEDILOL | [facility] | + + + + | 2022-12-04 00:00 | carvedilol 6.25 MG Oral | [facility] | | | Tablet [Coreg] | | + + + + | 2022-11-07 00:00 | ASPIRIN | [facility] | + + + + | 2022-12-04 00:00 | ASPIRIN | [facility] | + + + + | 2023-01-13 00:00 | ASPIRIN | [facility] | + + + + | 2022-11-07 00:00 | aspirin 81 MG Delayed | [facility] | | | Release Oral Tablet | | + + + + | 2022-12-04 00:00 | aspirin 81 MG Delayed | [facility] | | | Release Oral Tablet | | + + + + | 2017-08-27 00:00 | CEPHALEXIN | [facility] | + + + + | 2017-08-27 00:00 | CEPHALEXIN | [facility] | + + + + | 2017-11-06 00:00 | CEPHALEXIN | [facility] | + + + + | 2017-11-06 00:00 | CEPHALEXIN | [facility] | + + + + | 2017-08-27 00:00 | cephalexin 500 MG Oral | [facility] | | | Capsule | | + + + + | 2017-11-06 00:00 | cephalexin 500 MG Oral | [facility] | | | Capsule | | + + + + | 2022-11-07 00:00 | CLOPIDOGREL BISULFATE | [facility] | + + + + | 2022-12-04 00:00 | CLOPIDOGREL BISULFATE | [facility] | + + + + | 2023-01-13 00:00 | CLOPIDOGREL BISULFATE | [facility] | + + + + | 2022-11-07 00:00 | clopidogrel 75 MG Oral | [facility] | | | Tablet | | + + + + | 2022-12-04 00:00 | clopidogrel 75 MG Oral | [facility] | | | Tablet | | + + + + | 2022-11-07 00:00 | HYDROCHLOROTHIAZIDE | [facility] | + + + + | 2022-12-04 00:00 | HYDROCHLOROTHIAZIDE | [facility] | + + + + | 2023-01-13 00:00 | HYDROCHLOROTHIAZIDE | [facility] | + + + + | 2022-11-07 00:00 | hydrochlorothiazide 25 MG | [facility] | | | Oral Tablet | | + + + + | 2022-12-04 00:00 | hydrochlorothiazide 25 MG | [facility] | | | Oral Tablet | | + + + + | 2022-11-07 00:00 | 24 HR isosorbide | [facility] | | | mononitrate 30 MG Extended | | | | Release Oral Tab | | + + + + | 2022-12-04 00:00 | 24 HR isosorbide | [facility] | | | mononitrate 30 MG Extended | | | | Release Oral Tab | | + + + + | 2022-11-07 00:00 | ISOSORBIDE MONONITRATE | [facility] | + + + + | 2022-12-04 00:00 | ISOSORBIDE MONONITRATE | [facility] | + + + + | 2023-01-13 00:00 | ISOSORBIDE MONONITRATE | [facility] | + + + + | 2022-11-07 00:00 | TADALAFIL | [facility] | + + + + | 2022-12-04 00:00 | TADALAFIL | [facility] | + + + + | 2023-01-13 00:00 | TADALAFIL | [facility] | + + + + | 2022-11-07 00:00 | tadalafil 5 MG Oral Tablet | [facility] | | | [Real] | | + + + + | 2022-12-04 00:00 | tadalafil 5 MG Oral Tablet | [facility] | | | [Margys] | | + + + + | 2022-11-07 00:00 | LUTEIN | [facility] | + + + + | 2022-12-04 00:00 | LUTEIN | [facility] | + + + + | 2023-01-13 00:00 | LUTEIN | [facility] | + + + + | 2022-11-07 00:00 | lutein 20 MG Oral Tablet | [facility] | + + + + | 2022-12-04 00:00 | lutein 20 MG Oral Tablet | [facility] | + + + + | 2022-11-07 00:00 | Berberine 90 MG / | [facility] | | | Cholecalciferol 500 UNT / | | | | Hops extract 370 | | + + + + | 2022-12-04 00:00 | Berberine 90 MG / | [facility] | | | Cholecalciferol 500 UNT / | | | | Hops extract 370 | | + + + + | 2022-11-07 00:00 | VIT D3 & K/BERBERINE | [facility] | | | HCL/HOPS | | + + + + | 2022-12-04 00:00 | VIT D3 & K/BERBERINE | [facility] | | | HCL/HOPS | | + + + + | 2022-11-07 00:00 | TAMSULOSIN HCL | [facility] | + + + + | 2022-12-04 00:00 | TAMSULOSIN HCL | [facility] | + + + + | 2023-01-13 00:00 | TAMSULOSIN HCL | [facility] | + + + + | 2022-11-07 00:00 | tamsulosin hydrochloride | [facility] | | | 0.4 MG Oral Capsule | | | | [Flomax] | | + + + + | 2022-12-04 00:00 | tamsulosin hydrochloride | [facility] | | | 0.4 MG Oral Capsule | | | | [Flomax] | | + + + + | 2022-11-07 00:00 | LEVOTHYROXINE SODIUM | [facility] | + + + + | 2022-12-04 00:00 | LEVOTHYROXINE SODIUM | [facility] | + + + + | 2023-01-13 00:00 | LEVOTHYROXINE SODIUM | [facility] | + + + + | 2022-11-07 00:00 | levothyroxine sodium 0.05 | [facility] | | | MG Oral Tablet [Synthroid] | | + + + + | 2022-12-04 00:00 | levothyroxine sodium 0.05 | [facility] | | | MG Oral Tablet [Synthroid] | | + + + + | 2022-11-07 00:00 | LOSARTAN POTASSIUM | [facility] | + + + + | 2022-12-04 00:00 | LOSARTAN POTASSIUM | [facility] | + + + + | 2023-01-13 00:00 | LOSARTAN POTASSIUM | [facility] | + + + + | 2022-11-07 00:00 | losartan potassium 25 MG | [facility] | | | Oral Tablet [Cozaar] | | + + + + | 2022-12-04 00:00 | losartan potassium 25 MG | [facility] | | | Oral Tablet [Cozaar] | | + + + + | 2022-11-07 00:00 | LOSARTAN POTASSIUM | [facility] | + + + + | 2022-12-04 00:00 | LOSARTAN POTASSIUM | [facility] | + + + + | 2023-01-13 00:00 | LOSARTAN POTASSIUM | [facility] | + + + + | 2022-11-07 00:00 | losartan potassium 50 MG | [facility] | | | Oral Tablet [Cozaar] | | + + + + | 2022-12-04 00:00 | losartan potassium 50 MG | [facility] | | | Oral Tablet [Cozaar] | | + + + + Problems + + + + | date | description | facility | + + + + | 2014-12-17 00:00 | Hyperventilation syndrome | [facility] | + + + + | 2014-12-17 00:00 | Opiate withdrawal | [facility] | + + + + | 2014-12-17 00:00 | Opioid withdrawal | [facility] | + + + + | 2014-12-17 00:00 | Opioid withdrawal | [facility] | + + + + | 2014-12-17 00:00 | Anxiety about health | [facility] | + + + + | 2014-12-17 00:00 | Anxiety about health | [facility] | + + + + | 2014-12-17 00:00 | 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 | | + + + + | 2014-12-17 00:00 | 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 | | + + + + | 2017-03-12 00:00 | Systolic essential | [facility] | | | hypertension | | + + + + | 2017-03-12 00:00 | Systolic essential | [facility] | | | hypertension | | + + + + | 2017-08-27 00:00 | Acute UTI | [facility] | + + + + | 2017-08-27 00:00 | Acute urinary tract | [facility] | | | infection | | + + + + | 2017-08-27 00:00 | Acute urinary tract | [facility] | | | infection | | + + + + | 2017-08-27 00:00 | Malaise | [facility] | + + + + | 2017-08-27 00:00 | Malaise | [facility] | + + + + | 2017-08-27 00:00 | Chills | [facility] | + + + + | 2017-08-27 00:00 | Chills | [facility] | + + + + | 2018-06-10 00:00 | Nonspecific chest pain | [facility] | + + + + | 2018-06-10 00:00 | Nonspecific chest pain | [facility] | + + + + | 2018-06-10 00:00 | Weakness | [facility] | + + + + | 2018-06-10 00:00 | Weakness | [facility] | + + + + | 2019-06-22 00:00 | UTI (urinary tract | [facility] | | | infection) | | + + + + | 2019-06-22 00:00 | Asymptomatic hypertension | [facility] | + + + + | 2019-06-22 00:00 | Asymptomatic hypertension | [facility] | + + + + | 2019-06-22 00:00 | Urinary tract infection | [facility] | + + + + | 2019-06-22 00:00 | Urinary tract infection | [facility] | + + + + | 2022-11-07 09:09 | HYPOTHYROIDISM, | [facility] | | | UNSPECIFIED | | + + + + | 2022-11-07 09:09 | PURE HYPERCHOLESTEROLEMIA, | [facility] | | | UNSPECIFIED | | + + + + | 2022-11-07 09:09 | Essential (primary) | [facility] | | | hypertension | | + + + + | 2022-11-07 09:09 | NURSING HOME (CURRENT) USE OF | [facility] | | | ASPIRIN | | + + + + | 2022-11-07 09:09 | 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) | [facility] | | | DRUG THERAPY | | + + + + | 2022-11-07 09:09 | ALLERGY STATUS TO OTH | [facility] | | | DRUG/MEDS/BIOL SUBST STATUS | | | | | | + + + + | 2022-12-04 00:00 | Hypertension | [facility] | + + + + | 2022-12-04 00:00 | Hypertension | [facility] | + + + + | 2022-12-04 00:00 | Headache | [facility] | + + + + | 2022-12-04 00:00 | Headache | [facility] | + + + + | 2022-12-04 12:53 | HYPOTHYROIDISM, | [facility] | | | UNSPECIFIED | | + + + + | 2022-12-04 12:53 | Essential (primary) | [facility] | | | hypertension | | + + + + | 2022-12-04 12:53 | NURSING HOME (CURRENT) USE OF | [facility] | | | ASPIRIN | | + + + + | 2022-12-04 12:53 | 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) | [facility] | | | DRUG THERAPY | | + + + + | 2022-12-04 12:53 | ALLERGY STATUS TO OTH | [facility] | | | DRUG/MEDS/BIOL SUBST STATUS | | | | | | + + + + | 2022-12-22 10:23 | MALIGNANT NEOPLASM OF | [facility] | | | LARYNX, UNSPECIFIE | | + + + + | 2022-12-22 10:23 | ANEMIA, UNSPECIFIED | [facility] | + + + + | 2022-12-22 10:23 | DYSPHAGIA, UNSPECIFIED | [facility] | + + + + | 2022-12-22 10:23 | ABNORMAL WEIGHT LOSS | [facility] | + + + + | 2022-12-22 10:23 | PERSONAL HISTORY OF | [facility] | | | MALIGNANT NEOPLASM OF | | | | ORGANS A | | + + + + | 2022-12-22 11:00 | MALIGNANT NEOPLASM OF | [facility] | | | LARYNX, UNSPECIFIE | | + + + + | 2022-12-22 11:00 | ANEMIA, UNSPECIFIED | [facility] | + + + + | 2022-12-28 09:09 | DYSPHAGIA, UNSPECIFIED | [facility] | + + + + | 2022-12-28 10:00 | DYSPHAGIA, UNSPECIFIED | [facility] | + + + + | 2023-01-13 10:13 | APLASTIC ANEMIA, | [facility] | | | UNSPECIFIED | | + + + + | 2023-01-13 12:00 | APLASTIC ANEMIA, | [facility] | | | UNSPECIFIED | | + + + + Procedures No information. Results/Labs +--------+--------+ +---------+--------+---------+ | test | date | facility | value | unit | notes | +--------+--------+ +---------+--------+---------+ + + | Result panel 1 | + + + + + +-------+ + + | | 2022-12-04 | [facility] | 5.7 | (missing) | (missing) | | (unavailable | [facility]15:07 [facility] | | | + + + +-------+ + + + + | Result panel 2 | + + + + + +--------+ + + | | 2022-12-04 | [facility] | 3.07 | (missing) | (missing) | | (unavailable | 14:15:07 [facility] | | | | + + + +--------+ + + + + | Result panel 3 | + + + + + +-------+ + + | | 2022-12-04 | [facility] | 9.8 | (missing) | (missing) | | (unavailable | 14:15:07 [facility] | | | | + + + +-------+ + + + + | Result panel 4 | + + + + + +--------+ + + | | 2022-12-04 | [facility] | 29.7 | (missing) | (missing) | | (unavailable | 14:15:07 [facility] | | | | + + + +--------+ + + + + | Result panel 5 | + + + + + +--------+ + + | | 2022-12-04 | [facility] | 96.7 | (missing) | (missing) | | (unavailable | [facility]:15:07 [facility] | | | | + + + +--------+ + + + + | Result panel 6 | + + + + + +--------+ + + | | 2022-12-04 | [facility] | 31.8 | (missing) | (missing) | | (unavailable | [facility]:15:07 [facility] | | | | + + + +--------+ + + + + | Result panel 7 | + + + + + +--------+ + + | | 2022-12-04 | [facility] | 32.9 | (missing) | (missing) | | (unavailable | [facility]:15:07 [facility] | | | | + + + +--------+ + + + + | Result panel 8 | + + + + + +--------+ + + | | 2022-12-04 | [facility] | 15.1 | (missing) | (missing) | | (unavailable | [facility]:15:07 [facility] | | | | + + + +--------+ + + + + | Result panel 9 | + + + + + +-------+ + + | | 2022-12-04 | [facility] | 173 | (missing) | (missing) | | (unavailable | 14:15:07 [facility] | | | | + + + +-------+ + + + + | Result panel 10 | + + + + + +--------+ + + | | 2022-12-04 | [facility] | 72.4 | (missing) | (missing) | | (unavailable | [facility]:15:07 [facility] | | | | + + + +--------+ + + + + | Result panel 11 | + + + + + +--------+ + + | | 2022-12-04 | [facility] | 11.0 | (missing) | (missing) | | (unavailable | [facility]:15:07 [facility] | | | | + + + +--------+ + + + + | Result panel 12 | + + + + + +--------+ + + | | 2022-12-04 | [facility] | 14.2 | (missing) | (missing) | | (unavailable | [facility]:15:07 [facility] | | | | + + + +--------+ + + + + | Result panel 13 | + + + + + +-------+ + + | | 2022-12-04 | [facility] | 1.7 | (missing) | (missing) | | (unavailable | [facility]:15:07 [facility] | | | | + + + +-------+ + + + + | Result panel 14 | + + + + + +-------+ + + | | 2022-12-04 | [facility] | 0.7 | (missing) | (missing) | | (unavailable | [facility]:15:07 [facility] | | | | + + + +-------+ + + + + | Result panel 15 | + + + + + +-----+ + + | | 2022-12-04 | [facility] | 6 | (missing) | (missing) | | (unavailable | :: | [facility] | | | | + + + +-----+ + + + + | Result panel 16 | + + + + + +-------+---------+ + | | 2022-12-04 | [facility] | 224 | mg/dL | (missing) | | (unavailable | 14:15:07 [facility] | | | | + + + +-------+---------+ + + + | Result panel 17 | + + + + + +------+---------+ + | | 2022-12-04 | [facility] | 24 | mg/dL | (missing) | | (unavailable | 14::07 | [facility] | | | | + + + +------+---------+ + + + | Result panel 18 | + + + + + +--------+---------+ + | | 2022-12-04 | [facility] | 1.42 | mg/dL | (missing) | | (unavailable | 14:15:07 [facility] | | | | + + + +--------+---------+ + + + | Result panel 19 | + + + + + +------+ + + | | 2022-12-04 | [facility] | 48 | (missing) | (missing) | | (unavailable | 14:15:07 [facility] | | | | + + + +------+ + + + + | Result panel 20 | + + + + + +---------+ + + | | 2022-12-04 | [facility] | 16.90 | (missing) | (missing) | | (unavailable | [facility]:15:07 [facility] | | | | + + + +---------+ + + + + | Result panel 21 | + + + + + +-------+ + + | | 2022-12-04 | [facility] | 144 | (missing) | (missing) | | (unavailable | 14:15:07 [facility] | | | | + + + +-------+ + + + + | Result panel 22 | + + + + + +-------+ + + | | 2022-12-04 | [facility] | 3.8 | (missing) | (missing) | | (unavailable | [facility]15:07 [facility] | | | | + + + +-------+ + + + + | Result panel 23 | + + + + + +-------+ + + | | 2022-12-04 | [facility] | 108 | (missing) | (missing) | | (unavailable | 14:15:07 [facility] | | | | + + + +-------+ + + + + | Result panel 24 | + + + + + +------+ + + | | 2022-12-04 | [facility] | 24 | (missing) | (missing) | | (unavailable | 14:15:07 [facility] | | | | + + + +------+ + + + + | Result panel 25 | + + + + + +--------+ + + | | 2022-12-04 | [facility] | 15.8 | (missing) | (missing) | | (unavailable | [facility]:15:07 [facility] | | | | + + + +--------+ + + + + | Result panel 26 | + + + + + +-------+---------+ + | | 2022-12-04 | [facility] | 7.7 | mg/dL | (missing) | | (unavailable | [facility]:15:07 [facility] | | | | + + + +-------+---------+ + + + | Result panel 27 | + + + + + +-------+ + + | | 2022-12-04 | [facility] | 5.8 | (missing) | (missing) | | (unavailable | [facility]:15:07 [facility] | | | | + + + +-------+ + + + + | Result panel 28 | + + + + + +-------+ + + | | 2022-12-04 | [facility] | 3.0 | (missing) | (missing) | | (unavailable | 14:15:07 | [facility] | | | | + + + +-------+ + + + + | Result panel 29 | + + + + + +-------+ + + | | 2022-12-04 | [facility] | 2.8 | (missing) | (missing) | | (unavailable | 14:15:07 | [facility] | | | | + + + +-------+ + + + + | Result panel 30 | + + + + + +--------+ + + | | 2022-12-04 | [facility] | 1.07 | (missing) | (missing) | | (unavailable | 14:15:07 | [facility] | | | | + + + +--------+ + + + + | Result panel 31 | + + + + + +-------+ + + | | 2022-12-04 | [facility] | 0.4 | (missing) | (missing) | | (unavailable | 14:15:07 | [facility] | | | | + + + +-------+ + + + + | Result panel 32 | + + + + + +------+ + + | | 2022-12-04 | [facility] | 18 | (missing) | (missing) | | (unavailable | 14:15:07 | [facility] | | | | + + + +------+ + + + + | Result panel 33 | + + + + + +------+ + + | | 2022-12-04 | [facility] | 23 | (missing) | (missing) | | (unavailable | 14:15:07 | [facility] | | | | + + + +------+ + + + + | Result panel 34 | + + + + + +------+ + + | | 2022-12-04 | [facility] | 81 | (missing) | (missing) | | (unavailable | 14:15:07 | [facility] | | | | + + + +------+ + + + + | Result panel 35 | + + + + + +--------+ + + | | 2022-12-04 | [facility] | 11.8 | (missing) | (missing) | | (unavailable | 14:15:07 | [facility] | | | | + + + +--------+ + + + + | Result panel 36 | + + + + + +-------+ + + | | 2023-01-13 | [facility] | 5.2 | (missing) | (missing) | | (unavailable | 10:38:07 | [facility] | | | | + + + +-------+ + + + + | Result panel 37 | + + + + + +-------+ + + | | 2023-01-13 | [facility] | 3.7 | (missing) | (missing) | | (unavailable | 10:38:07 | [facility] | | | | + + + +-------+ + + + + | Result panel 38 | + + + + + +-------+ + + | | 2023-01-13 | [facility] | 0.8 | (missing) | (missing) | | (unavailable | 10:38:07 | [facility] | | | | + + + +-------+ + + + + | Result panel 39 | + + + + + +-------+ + + | | 2023-01-13 | [facility] | 0.6 | (missing) | (missing) | | (unavailable | 10:38:07 | [facility] | | | | + + + +-------+ + + + + | Result panel 39 | + + + + + +-------+ + + | | 2023-01-13 | [facility] | 0.1 | (missing) | (missing) | | (unavailable | 10:38:07 [facility] | | | | + + + +-------+ + + + + | Result panel 41 | + + + + + +-----+ + + | | 2023-01-13 | [facility] | 0 | (missing) | (missing) | | (unavailable | 10:38:07 [facility] | | | | + + + +-----+ + + + + | Result panel 42 | + + + + + +--------+ + + | | 2023-01-13 | [facility] | 70.8 | (missing) | (missing) | | (unavailable | [facility]38:07 [facility] | | | | + + + +--------+ + + + + | Result panel 43 | + + + + + +--------+ + + | | 2023-01-13 | [facility] | 14.5 | (missing) | (missing) | | (unavailable | 10[facility]38:07 [facility] | | | | + + + +--------+ + + + + | Result panel 44 | + + + + + +--------+ + + | | 2023-01-13 | [facility] | 11.2 | (missing) | (missing) | | (unavailable | 10[facility]38:07 [facility] | | | | + + + +--------+ + + + + | Result panel 45 | + + + + + +-------+ + + | | 2023-01-13 | [facility] | 2.7 | (missing) | (missing) | | (unavailable | [facility]38:07 [facility] | | | + + + +-------+ + + + + | Result panel 46 | + + + + + +-------+ + + | | 2023-01-13 | [facility] | 0.8 | (missing) | (missing) | | (unavailable | [facility]38:07 [facility] | | | + + + +-------+ + + + + | Result panel 47 | + + + + + +--------+ + + | | 2023-01-13 | [facility] | 3.45 | (missing) | (missing) | | (unavailable | 10:38:07 [facility] | | | + + + +--------+ + + + + | Result panel 48 | + + + + + +------+---------+ + | | 2023-01-13 | [facility] | 95 | mg/dL | (missing) | | (unavailable | 10:38:07 [facility] | | | | + + + +------+---------+ + + + | Result panel 49 | + + + + + +------+---------+ + | | 2023-01-13 | [facility] | 23 | mg/dL | (missing) | | (unavailable | 10:38:07 [facility] | | | | + + + +------+---------+ + + + | Result panel 50 | + + + + + +--------+---------+ + | | 2023-01-13 | [facility] | 1.27 | mg/dL | (missing) | | (unavailable | 10:38:07 [facility] | | | | + + + +--------+---------+ + + + | Result panel 51 | + + + + + +------+ + + | | 2023-01-13 | [facility] | 54 | (missing) | (missing) | | (unavailable | 10:38:07 [facility] | | | | + + + +------+ + + + + | Result panel 52 | + + + + + +---------+ + + | | 2023-01-13 | [facility] | 18.11 | (missing) | (missing) | | (unavailable | 10:38:07 [facility] | | | | + + + +---------+ + + + + | Result panel 53 | + + + + + +-------+ + + | | 2023-01-13 | [facility] | 144 | (missing) | (missing) | | (unavailable | 10:38:07 [facility] | | | | + + + +-------+ + + + + | Result panel 54 | + + + + + +-------+ + + | | 2023-01-13 | [facility] | 4.3 | (missing) | (missing) | | (unavailable | 10:38:07 [facility] | | | | + + + +-------+ + + + + | Result panel 55 | + + + + + +-------+ + + | | 2023-01-13 | [facility] | 109 | (missing) | (missing) | | (unavailable | 10:38:07 [facility] | | | | + + + +-------+ + + + + | Result panel 56 | + + + + + +------+ + + | | 2023-01-13 | [facility] | 28 | (missing) | (missing) | | (unavailable | 10:38:07 [facility] | | | | + + + +------+ + + + + | Result panel 57 | + + + + + +--------+ + + | | 2023-01-13 | [facility] | 11.3 | (missing) | (missing) | | (unavailable | 10:38:07 [facility] | | | | + + + +--------+ + + + + | Result panel 58 | + + + + + +--------+ + + | | 2023-01-13 | [facility] | 11.1 | (missing) | (missing) | | (unavailable | 10:38:07 [facility] | | | | + + + +--------+ + + + + | Result panel 59 | + + + + + +-------+---------+ + | | 2023-01-13 | [facility] | 9.1 | mg/dL | (missing) | | (unavailable | 10:38:07 [facility] | | | | + + + +-------+---------+ + + + | Result panel 60 | + + + + + +-------+ + + | | 2023-01-13 | [facility] | 6.3 | (missing) | (missing) | | (unavailable | 10:38:07 [facility] | | | | + + + +-------+ + + + + | Result panel 61 | + + + + + +-------+ + + | | 2023-01-13 | [facility] | 3.4 | (missing) | (missing) | | (unavailable | 10:38:07 [facility] | | | | + + + +-------+ + + + + | Result panel 62 | + + + + + +-------+ + + | | 2023-01-13 | [facility] | 2.9 | (missing) | (missing) | | (unavailable | 10:38:07 [facility] | | | | + + + +-------+ + + + + | Result panel 63 | + + + + + +--------+ + + | | 2023-01-13 | [facility] | 1.17 | (missing) | (missing) | | (unavailable | 10:38:07 [facility] | | | | + + + +--------+ + + + + | Result panel 64 | + + + + + +-------+ + + | | 2023-01-13 | [facility] | 0.6 | (missing) | (missing) | | (unavailable | 10[facility]38:07 [facility] | | | | + + + +-------+ + + + + | Result panel 65 | + + + + + +------+ + + | | 2023-01-13 | [facility] | 15 | (missing) | (missing) | | (unavailable | 10:38:07 [facility] | | | | + + + +------+ + + + + | Result panel 66 | + + + + + +------+ + + | | 2023-01-13 | [facility] | 23 | (missing) | (missing) | | (unavailable | 10:38:07 [facility] | | | | + + + +------+ + + + + | Result panel 67 | + + + + + +------+ + + | | 2023-01-13 | [facility] | 85 | (missing) | (missing) | | (unavailable | 10:38:07 [facility] | | | | + + + +------+ + + + + | Result panel 68 | + + + + + +-------+ + + | | 2023-01-13 | [facility] | 139 | (missing) | (missing) | | (unavailable | 10:38:07 [facility] | | | | + + + +-------+ + + + + | Result panel 69 | + + + + + +--------+ + + | | 2023-01-13 | [facility] | 33.4 | (missing) | (missing) | | (unavailable | 10:38:07 [facility] | | | | + + + +--------+ + + + + | Result panel 70 | + + + + + +--------+ + + | | 2023-01-13 | [facility] | 96.9 | (missing) | (missing) | | (unavailable | 10:38:07 [facility] | | | | + + + +--------+ + + + + | Result panel 71 | + + + + + +--------+ + + | | 2023-01-13 | [facility] | 32.0 | (missing) | (missing) | | (unavailable | 10:38:07 [facility] | | | | + + + +--------+ + + + + | Result panel 72 | + + + + + +--------+ + + | | 2023-01-13 | [facility] | 33.1 | (missing) | (missing) | | (unavailable | 10:38:07 [facility] | | | | + + + +--------+ + + + + | Result panel 73 | + + + + + +--------+ + + | | 2023-01-13 | [facility] | 14.6 | (missing) | (missing) | | (unavailable | 10:38:07 [facility] | | | | + + + +--------+ + + + + | Result panel 74 | + + + + + +-------+ + + | | 2023-01-13 | [facility] | 192 | (missing) | (missing) | | (unavailable | 10:38:07 [facility] | | | | + + + +-------+ + + + + | Serum or plasma alanine aminotransferase measurement (enzymatic activity/volume) | + + + + + +------+ + + | Serum or | 2022-12-04 | [facility] | 23 | (missing) | (missing) | | plasma | 14:15 | [facility] | | alanine | | [facility] | | | | | aminotransfe | | | | | | | rase | | | | | | | measurement | | | | | | | (enzymatic | | | | | | | activity/vol | | | | | | | ume) | | | | | | + + + +------+ + + + + | Serum or plasma albumin measurement (mass/volume) | + + + + + +-------+ + + | Serum or | 2022-12-04 | [facility] | 3.0 | (missing) | (missing) | | plasma | 14:15 | [facility] albumin | [facility] | | | | | measurement | | | | | | | (mass/volume | | | | | | | ) | | | | | | + + + +-------+ + + + + | Serum or plasma albumin/globulin mass ratio | + + + + + +--------+ + + | Serum or | 2022-12-04 | [facility] | 1.07 | (missing) | (missing) | | plasma | 14:15 | [facility] | | | albumin/glob | | [facility] | | | | | ulin mass | | | | | | | ratio | | | | | | + + + +--------+ + + + + | Serum or plasma calcium measurement (mass/volume) | + + + + + +-------+ + + | Serum or | 2022-12-04 | [facility] | 7.7 | (missing) | (missing) | | plasma | 14:15 | [facility] calcium | [facility] | | | | | measurement | | | | | | | (mass/volume | | | | | | | ) | | | | | | + + + +-------+ + + + + | Erythrocyte sedimentation rate (ESR) by 2 hour Heribertoergren method | + + + + + +-----+ + + | Erythrocyte | 2022-12-04 | [facility] | 6 | (missing) | (missing) | | | 14:15 | [facility] | | | | sedimentatio | | Hospital | | | | | n rate (ESR) | | | | | | | by 2 hour | | | | | | | Westergren | | | | | | | method | | | | | | + + + +-----+ + + + + | Serum or plasma anion gap 4 | + + + + + +--------+ + + | Serum or | 2022-12-04 | [facility] | 15.8 | (missing) | (missing) | | plasma anion | 14:15 | [facility] | | [facility] | gap 4 | | [facility] | | | | + + + +--------+ + + + + | Serum or plasma aspartate aminotransferase measurement (enzymatic activity/volume) | + + + + + +------+ + + | Serum or | 2022-12-04 | [facility] | 18 | (missing) | (missing) | | plasma | 14:15 | [facility] | | | | aspartate | | [facility] | | | | | aminotransfe | | | | | | | rase | | | | | | | measurement | | | | | | | (enzymatic | | | | | | | activity/vol | | | | | | | ume) | | | | | | + + + +------+ + + + + | Serum or plasma total bilirubin measurement (mass/volume) | + + + + + +-------+ + + | Serum or | 2022-12-04 | [facility] | 0.4 | (missing) | (missing) | | plasma total | 14:15 | [facility] | | | bilirubin | | [facility] | | | | | measurement | | | | | | | (mass/volume | | | | | | | ) | | | | | | + + + +-------+ + + + + | Serum or plasma carbon dioxide, total measurement (moles/volume) | + + + + + +------+ + + | Serum or | 2022-12-04 | [facility] | 24 | (missing) | (missing) | | plasma | 14:15 | [facility] | | | | carbon | | [facility] | | | | | dioxide, | | | | | | | total | | | | | | | measurement | | | | | | | (moles/volum | | | | | | | e) | | | | | | + + + +------+ + + + + | Serum or plasma chloride measurement (moles/volume) | + + + + + +-------+ + + | Serum or | 2022-12-04 | [facility] | 108 | (missing) | (missing) | | plasma | 14:15 | [facility] | [facility] chloride | | [facility] | | | | | measurement | | | | | | | (moles/volum | | | | | | | e) | | | | | | + + + +-------+ + + + + | Automated erythrocyte distribution width | + + + + + +--------+ + + | Automated | 2022-12-04 | [facility] | 15.1 | (missing) | (missing) | | erythrocyte | 14:15 | [facility] | distribution | | [facility] | | | | | width | | | | | | + + + +--------+ + + + + | Serum or plasma creatinine measurement (mass/volume) | + + + + + +--------+ + + | Serum or | 2022-12-04 | [facility] | 1.42 | (missing) | (missing) | | plasma | 14:15 | [facility] | creatinine | | [facility] | | | | | measurement | | | | | | | (mass/volume | | | | | | | ) | | | | | | + + + +--------+ + + + + | Serum globulin measurement (mass/volume) | + + + + + +-------+ + + | Serum | 2022-12-04 | [facility] | 2.8 | (missing) | (missing) | | globulin | 14:15 | [facility] | [facility] | | | | | (mass/volume | | | | | | | ) | | | | | | + + + +-------+ + + + + | Serum or plasma glucose measurement (mass/volume) | + + + + + +-------+ + + | Serum or | 2022-12-04 | [facility] | 224 | (missing) | (missing) | | plasma | 14:15 | [facility] | glucose | | [facility] | | | | | measurement | | | | | | | (mass/volume | | | | | | | ) | | | | | | + + + +-------+ + + + + | Serum or plasma potassium measurement (moles/volume) | + + + + + +-------+ + + | Serum or | 2022-12-04 | [facility] | 3.8 | (missing) | (missing) | | plasma | 14:15 | [facility] potassium | | [facility] | | | | | measurement | | | | | | | (moles/volum | | | | | | | e) | | | | | | + + + +-------+ + + + + | Serum or plasma protein measurement (mass/volume) | + + + + + +-------+ + + | Serum or | 2022-12-04 | [facility] | 5.8 | (missing) | (missing) | | plasma | 14:15 | [facility] protein | | [facility] | | | | | measurement | | | | | | | (mass/volume | | | | | | | ) | | | | | | + + + +-------+ + + + + | Serum or plasma sodium measurement (moles/volume) | + + + + + +-------+ + + | Serum or | 2022-12-04 | [facility] | 144 | (missing) | (missing) | | plasma | 14:15 | [facility] sodium | | [facility] | | | | | measurement | | | | | | | (moles/volum | | | | | | | e) | | | | | | + + + +-------+ + + + + | Serum or plasma urea nitrogen measurement (mass/volume) | + + + + + +------+ + + | Serum or | 2022-12-04 | [facility] | 24 | (missing) | (missing) | | plasma urea | 14:15 | [facility] | [facility] nitrogen | | [facility] | | | | | measurement | | | | | | | (mass/volume | | | | | | | ) | | | | | | + + + +------+ + + + + | Serum or plasma urea nitrogen/creatinine mass ratio | + + + + + +---------+ + + | Serum or | 2022-12-04 | [facility] | 16.90 | (missing) | (missing) | | plasma urea | 14:15 | [facility] | | | | nitrogen/cre | | [facility] | | | | | atinine mass | | | | | | | ratio | | | | | | + + + +---------+ + + + + | Automated blood monocyte count as percentage of total leukocytes | + + + + + +--------+ + + | Automated | 2022-12-04 | [facility] | 14.2 | (missing) | (missing) | | blood | 14:15 | [facility] | | | monocyte | | [facility] | | | | | count as | | | | | | | percentage | | | | | | | of total | | | | | | | leukocytes | | | | | | + + + +--------+ + + + + | Blood leukocytes automated count (number/volume) | + + + + + +-------+ + + | Blood | 2022-12-04 | [facility] | 5.7 | (missing) | (missing) | | leukocytes | 14:15 | [facility] | | | automated | | [facility] | | | | | count | | | | | | | (number/volu | | | | | | | me) | | | | | | + + + +-------+ + + + + | Serum or plasma alkaline phosphatase measurement (enzymatic activity/volume) | + + + + + +------+ + + | Serum or | 2022-12-04 | [facility] | 81 | (missing) | (missing) | | plasma | 14:15 | [facility] | | | | alkaline | | [facility] | | | | | phosphatase | | | | | | | measurement | | | | | | | (enzymatic | | | | | | | activity/vol | | | | | | | ume) | | | | | | + + + +------+ + + + + | Automated blood basophil count as percentage of total leukocytes | + + + + + +-------+ + + | Automated | 2022-12-04 | [facility] | 0.7 | (missing) | (missing) | | blood | 14:15 | [facility] | | | | basophil | | [facility] | | | | | count as | | | | | | | percentage | | | | | | | of total | | | | | | | leukocytes | | | | | | + + + +-------+ + + + + | Automated blood eosinophil count as percentage of total leukocytes | + + + + + +-------+ + + | Automated | 2022-12-04 | [facility] | 1.7 | (missing) | (missing) | | blood | 14:15 | [facility] | | | | eosinophil | | [facility] | | | | | count as | | | | | | | percentage | | | | | | | of total | | | | | | | leukocytes | | | | | | + + + +-------+ + + + + | Blood hemoglobin measurement (mass/volume) | + + + + + +-------+ + + | Blood | 2022-12-04 | [facility] | 9.8 | (missing) | (missing) | | hemoglobin | 14:15 | [facility] | [facility] | | | | | (mass/volume | | | | | | | ) | | | | | | + + + +-------+ + + + + | Automated blood hematocrit | + + + + + +--------+ + + | Automated | 2022-12-04 | [facility] | 29.7 | (missing) | (missing) | | blood | 14:15 | [facility] hematocrit | | [facility] | | | | + + + +--------+ + + + + | Automated blood lymphocyte count as percentage ot total leukocytes | + + + + + +--------+ + + | Automated | 2022-12-04 | [facility] | 11.0 | (missing) | (missing) | | blood | 14:15 | [facility] | | | | lymphocyte | | [facility] | | | | | count as | | | | | | | percentage | | | | | | | ot total | | | | | | | leukocytes | | | | | | + + + +--------+ + + + + | Automated blood neutrophil count as percentage of total leukocytes | + + + + + +--------+ + + | Automated | 2022-12-04 | [facility] | 72.4 | (missing) | (missing) | | blood | 14:15 | [facility] | | | neutrophil | | [facility] | | | | | count as | | | | | | | percentage | | | | | | | of total | | | | | | | leukocytes | | | | | | + + + +--------+ + + + + | Automated blood platelet count (count/volume) | + + + + + +-------+ + + | Automated | 2022-12-04 | [facility] | 173 | (missing) | (missing) | | blood | 14:15 | [facility] | platelet | | [facility] | | | | | count | | | | | | | (count/volum | | | | | | | e) | | | | | | + + + +-------+ + + + + | Automated erythrocyte mean corpuscular hemoglobin (mass per erythrocyte) | + + + + + +--------+ + + | Automated | 2022-12-04 | [facility] | 31.8 | (missing) | (missing) | | erythrocyte | 14:15 | [facility] | | [facility] mean | | [facility] | | | | | corpuscular | | | | | | | hemoglobin | | | | | | | (mass per | | | | | | | erythrocyte) | | | | | | | | | | | | | + + + +--------+ + + + + | Automated erythrocyte mean corpuscular hemoglobin concentration measurement | | (mass/volume) | + + + + + +--------+ + + | Automated | 2022-12-04 | [facility] | 32.9 | (missing) | (missing) | | erythrocyte | 14:15 | [facility] | | | | mean | | [facility] | | | | | corpuscular | | | | | | | hemoglobin | | | | | | | concentratio | | | | | | | n | | | | | | | measurement | | | | | | | (mass/volume | | | | | | | ) | | | | | | + + + +--------+ + + + + | Automated erythrocyte mean corpuscular volume | + + + + + +--------+ + + | Automated | 2022-12-04 | [facility] | 96.7 | (missing) | (missing) | | erythrocyte | 14:15 | [facility] | [facility] mean | | [facility] | | | | | corpuscular | | | | | | | volume | | | | | | + + + +--------+ + + + + | Blood erythrocytes automated count (number/volume) | + + + + + +--------+ + + | Blood | 2022-12-04 | [facility] | 3.07 | (missing) | (missing) | | erythrocytes | 14:15 | [facility] automated | [facility] | | | | | count | | | | | | | (number/volu | | | | | | | me) | | | | | | + + + +--------+ + + + + | Serum or plasma cardiac troponin I measurement by high senstivity method (mass/volume) | + + + + + +--------+ + + | Serum or | 2022-12-04 | [facility] | 11.8 | (missing) | (missing) | | plasma | 14:15 | [facility] | cardiac | | [facility] | | | | | troponin I | | | | | | | measurement | | | | | | | by high | | | | | | | senstivity | | | | | | | method | | | | | | | (mass/volume | | | | | | | ) | | | | | | + + + +--------+ + + + + | Glomerular filtration rate/1.73 sq M.predicted [Volume Rate/Area] inSerum, Plasma or | | Blood by Creatinine-based formula (CKD-EPI 2020) | + + + + + +------+ + + | Glomerular | 2022-12-04 | [facility] | 48 | (missing) | (missing) | | filtration | 14:15 | [facility] | | | | rate/1.73 sq | | Hospital | | | | | M.predicted | | | | | | | [Volume | | | | | | | Rate/Area] | | | | | | | inSerum, | | | | | | | Plasma or | | | | | | | Blood by | | | | | | | Creatinine-b | | | | | | | ased formula | | | | | | | (CKD-EPI | | | | | | | 2020) | | | | | | + + + +------+ + + Social History + + + + | date | description | facility | + + + + | 2022-11-07 00:00 | Never smoker | [facility] | + + + + | 2022-12-04 00:00 | Never smoker | [facility] | + + + + Vital Signs + + + +---------+ | date | measurement | value | units | + + + +---------+ | 2022-11-07 00:00 | BMI | 22.0 | kg/m2 | + + + +---------+ | 2022-11-07 00:00 | BP_diastolic | 80 | mmHg | + + + +---------+ | 2022-11-07 00:00 | BP_systolic | 206 | mmHg | + + + +---------+ | 2022-11-07 00:00 | heart_rate | 51 | /min | + + + +---------+ | 2022-11-07 00:00 | height_metric | 180.34 | cm | + + + +---------+ | 2022-11-07 00:00 | height_standard | 71 | in | + + + +---------+ | 2022-11-07 00:00 | o2_saturation | 98 | % | + + + +---------+ | 2022-11-07 00:00 | respiration_rate | 16 | /min | + + + +---------+ | 2022-11-07 00:00 | temperature_metric | 36.39 | C | | | | | | + + + +---------+ | 2022-11-07 00:00 | | 97.5 | F | | | temperature_standar | | | | | d | | | + + + +---------+ | 2022-11-07 00:00 | weight_metric | 71.7 | kg | + + + +---------+ | 2022-11-07 00:00 | weight_standard | 158.07 | lb | + + + +---------+ | 2022-12-04 00:00 | BMI | 22.0 | kg/m2 | + + + +---------+ | 2022-12-04 00:00 | BP_diastolic | 100 | mmHg | + + + +---------+ | 2022-12-04 00:00 | BP_systolic | 177 | mmHg | + + + +---------+ | 2022-12-04 00:00 | heart_rate | 64 | /min | + + + +---------+ | 2022-12-04 00:00 | height_metric | 180.34 | cm | + + + +---------+ | 2022-12-04 00:00 | height_standard | 71 | in | + + + +---------+ | 2022-12-04 00:00 | o2_saturation | 100 | % | + + + +---------+ | 2022-12-04 00:00 | respiration_rate | 17 | /min | + + + +---------+ | 2022-12-04 00:00 | temperature_metric | 36.67 | C | | | | | | + + + +---------+ | 2022-12-04 00:00 | | 98 | F | | | temperature_standar | | | | | d | | | + + + +---------+ | 2022-12-04 00:00 | weight_metric | 71.67 | kg | + + + +---------+ | 2022-12-04 00:00 | weight_standard | 158 | lb | + + + +---------+ | 2023-01-06 00:00 | BMI | 21.5 | kg/m2 | + + + +---------+ | 2023-01-06 00:00 | height_metric | 180.34 | cm | + + + +---------+ | 2023-01-06 00:00 | height_standard | 71 | in | + + + +---------+ | 2023-01-06 00:00 | weight_metric | 70 | kg | + + + +---------+ | 2023-01-06 00:00 | weight_standard | 154.32 | lb | + + + +---------+ | 2023-01-13 00:00 | BP_diastolic | 73 | mmHg | + + + +---------+ | 2023-01-13 00:00 | BP_systolic | 178 | mmHg | + + + +---------+ | 2023-01-13 00:00 | heart_rate | 56 | /min | + + + +---------+ | 2023-01-13 00:00 | o2_saturation | 99 | % | + + + +---------+ | 2023-01-13 00:00 | respiration_rate | 16 | /min | + + + +---------+ | 2023-01-13 00:00 | temperature_metric | 36.56 | C | | | | | | + + + +---------+ | 2023-01-13 00:00 | | 97.8 | F | | | temperature_standar | | | | | d | | | + + + +---------+"
--- OUTSIDE RECORDS SUMMARY | ~2023-01-28 | XMS | Continuity of Care Document ---
Demographics + + + | Address | [address] | | | [place] [address] | + + + | Preferred Language | Unknown | + + + | Marital Status | | + + + | Tenriism Affiliation | Unknown | + + + | Race | White | + + + | Ethnic Group | Not or | + + + Author + + + | Author | [facility] | + + + | Organization | [facility] | + + + | Address | [address] | | | [place] [address] | + + + | Phone | | + + + Care Team Providers + + + + | Care Director Learning And Development Name | Role | Phone | [...] 2022-11-07 00:00 | No vaccine administered | [facility] | + + + + | 2022-12-04 00:00 | No vaccine administered | [facility] | + + + + Medications + + + + | date | description | facility | + + + + | 2022-11-07 00:00 | CYANOCOBALAMIN (VITAMIN | [facility] | | | B-12) | | + + + + | 2022-12-04 00:00 | CYANOCOBALAMIN (VITAMIN | [facility] | | | B-12) | | + + + + | 2022-11-07 00:00 | vitamin B12 0.05 MG Oral | [facility] | | | Tablet | | + + + + | 2022-12-04 00:00 | vitamin B12 0.05 MG Oral | [facility] | | | Tablet | | + + + + | 2022-11-07 00:00 | SIMVASTATIN | [facility] | + + + + | 2022-12-04 00:00 | SIMVASTATIN | [facility] | + + + + | 2023-01-13 00:00 | SIMVASTATIN | [facility] | + + + + | 2022-11-07 00:00 | simvastatin 40 MG Oral | [facility] | | | Tablet [Zocor] | | + + + + | 2022-12-04 00:00 | simvastatin 40 MG Oral | [facility] | | | Tablet [Zocor] | | + + + + | 2022-11-07 00:00 | ALLOPURINOL | [facility] | + + + + | 2022-12-04 00:00 | ALLOPURINOL | [facility] | + + + + | 2023-01-13 00:00 | ALLOPURINOL | [facility] | + + + + | 2022-11-07 00:00 | allopurinol 100 MG Oral | [facility] | | | Tablet | | + + + + | 2022-12-04 00:00 | allopurinol 100 MG Oral | [facility] | | | Tablet | | + + + + | 2022-11-07 00:00 | ALLOPURINOL | [facility] | + + + + | 2022-12-04 00:00 | ALLOPURINOL | [facility] | + + + + | 2023-01-13 00:00 | ALLOPURINOL | [facility] | + + + + | 2022-11-07 00:00 | allopurinol 300 MG Oral | [facility] | | | Tablet | | + + + + | 2022-12-04 00:00 | allopurinol 300 MG Oral | [facility] | | | Tablet | | + + + + | 2022-11-07 00:00 | CARVEDILOL | [facility] | + + + + | 2022-12-04 00:00 | CARVEDILOL | [facility] | + + + + | 2023-01-13 00:00 | CARVEDILOL | [facility] | + + + + | 2022-11-07 00:00 | carvedilol 12.5 MG Oral | [facility] | | | Tablet | | + + + + | 2022-12-04 00:00 | carvedilol 12.5 MG Oral | [facility] | | | Tablet | | + + + + | 2022-11-07 00:00 | CEFDINIR | [facility] | + + + + | 2022-12-04 00:00 | CEFDINIR | [facility] | + + + + | 2023-01-13 00:00 | CEFDINIR | [facility] | + + + + | 2022-11-07 00:00 | cefdinir 300 MG Oral | [facility] | | | Capsule | | + + + + | 2022-12-04 00:00 | cefdinir 300 MG Oral | [facility] | | | Capsule | | + + + + | 2022-11-07 00:00 | FINASTERIDE | [facility] | + + + + | 2022-12-04 00:00 | FINASTERIDE | [facility] | + + + + | 2022-11-07 00:00 | finasteride 5 MG Oral | [facility] | | | Tablet [Proscar] | | + + + + | 2022-12-04 00:00 | finasteride 5 MG Oral | [facility] | | | Tablet [Proscar] | | + + + + | 2022-11-07 00:00 | NITROGLYCERIN | [facility] | + + + + | 2022-12-04 00:00 | NITROGLYCERIN | [facility] | + + + + | 2023-01-13 00:00 | NITROGLYCERIN | [facility] | + + + + | 2022-11-07 00:00 | nitroglycerin 0.4 MG | [facility] | | | Sublingual Tablet | | | | [Nitrostat] | | + + + + | 2022-12-04 00:00 | nitroglycerin 0.4 MG | [facility] | | | Sublingual Tablet | | | | [Nitrostat] | | + + + + | 2019-06-05 00:00 | CEPHALEXIN | [facility] | + + + + | 2019-06-05 00:00 | CEPHALEXIN | [facility] | + + + + | 2019-06-05 00:00 | cephalexin 500 MG Oral | [facility] | | | Capsule [Keflex] | | + + + + | 2022-12-04 00:00 | CARVEDILOL | [facility] | + + + + | 2023-01-13 00:00 | CARVEDILOL | [facility] | + + + + | 2022-12-04 00:00 | carvedilol 6.25 MG Oral | [facility] | | | Tablet [Coreg] | | + + + + | 2022-11-07 00:00 | ASPIRIN | [facility] | + + + + | 2022-12-04 00:00 | ASPIRIN | [facility] | + + + + | 2023-01-13 00:00 | ASPIRIN | [facility] | + + + + | 2022-11-07 00:00 | aspirin 81 MG Delayed | [facility] | | | Release Oral Tablet | | + + + + | 2022-12-04 00:00 | aspirin 81 MG Delayed | [facility] | | | Release Oral Tablet | | + + + + | 2017-08-27 00:00 | CEPHALEXIN | [facility] | + + + + | 2017-08-27 00:00 | CEPHALEXIN | [facility] | + + + + | 2017-11-06 00:00 | CEPHALEXIN | [facility] | + + + + | 2017-11-06 00:00 | CEPHALEXIN | [facility] | + + + + | 2017-08-27 00:00 | cephalexin 500 MG Oral | [facility] | | | Capsule | | + + + + | 2017-11-06 00:00 | cephalexin 500 MG Oral | [facility] | | | Capsule | | + + + + | 2022-11-07 00:00 | CLOPIDOGREL BISULFATE | [facility] | + + + + | 2022-12-04 00:00 | CLOPIDOGREL BISULFATE | [facility] | + + + + | 2023-01-13 00:00 | CLOPIDOGREL BISULFATE | [facility] | + + + + | 2022-11-07 00:00 | clopidogrel 75 MG Oral | [facility] | | | Tablet | | + + + + | 2022-12-04 00:00 | clopidogrel 75 MG Oral | [facility] | | | Tablet | | + + + + | 2022-11-07 00:00 | HYDROCHLOROTHIAZIDE | [facility] | + + + + | 2022-12-04 00:00 | HYDROCHLOROTHIAZIDE | [facility] | + + + + | 2023-01-13 00:00 | HYDROCHLOROTHIAZIDE | [facility] | + + + + | 2022-11-07 00:00 | hydrochlorothiazide 25 MG | [facility] | | | Oral Tablet | | + + + + | 2022-12-04 00:00 | hydrochlorothiazide 25 MG | [facility] | | | Oral Tablet | | + + + + | 2022-11-07 00:00 | 24 HR isosorbide | [facility] | | | mononitrate 30 MG Extended | | | | Release Oral Tab | | + + + + | 2022-12-04 00:00 | 24 HR isosorbide | [facility] | | | mononitrate 30 MG Extended | | | | Release Oral Tab | | + + + + | 2022-11-07 00:00 | ISOSORBIDE MONONITRATE | [facility] | + + + + | 2022-12-04 00:00 | ISOSORBIDE MONONITRATE | [facility] | + + + + | 2023-01-13 00:00 | ISOSORBIDE MONONITRATE | [facility] | + + + + | 2022-11-07 00:00 | TADALAFIL | [facility] | + + + + | 2022-12-04 00:00 | TADALAFIL | [facility] | + + + + | 2023-01-13 00:00 | TADALAFIL | [facility] | + + + + | 2022-11-07 00:00 | tadalafil 5 MG Oral Tablet | [facility] | | | [Real] | | + + + + | 2022-12-04 00:00 | tadalafil 5 MG Oral Tablet | [facility] | | | [Margys] | | + + + + | 2022-11-07 00:00 | LUTEIN | [facility] | + + + + | 2022-12-04 00:00 | LUTEIN | [facility] | + + + + | 2023-01-13 00:00 | LUTEIN | [facility] | + + + + | 2022-11-07 00:00 | lutein 20 MG Oral Tablet | [facility] | + + + + | 2022-12-04 00:00 | lutein 20 MG Oral Tablet | [facility] | + + + + | 2022-11-07 00:00 | Berberine 90 MG / | [facility] | | | Cholecalciferol 500 UNT / | | | | Hops extract 370 | | + + + + | 2022-12-04 00:00 | Berberine 90 MG / | [facility] | | | Cholecalciferol 500 UNT / | | | | Hops extract 370 | | + + + + | 2022-11-07 00:00 | VIT D3 & K/BERBERINE | [facility] | | | HCL/HOPS | | + + + + | 2022-12-04 00:00 | VIT D3 & K/BERBERINE | [facility] | | | HCL/HOPS | | + + + + | 2022-11-07 00:00 | TAMSULOSIN HCL | [facility] | + + + + | 2022-12-04 00:00 | TAMSULOSIN HCL | [facility] | + + + + | 2023-01-13 00:00 | TAMSULOSIN HCL | [facility] | + + + + | 2022-11-07 00:00 | tamsulosin hydrochloride | [facility] | | | 0.4 MG Oral Capsule | | | | [Flomax] | | + + + + | 2022-12-04 00:00 | tamsulosin hydrochloride | [facility] | | | 0.4 MG Oral Capsule | | | | [Flomax] | | + + + + | 2022-11-07 00:00 | LEVOTHYROXINE SODIUM | [facility] | + + + + | 2022-12-04 00:00 | LEVOTHYROXINE SODIUM | [facility] | + + + + | 2023-01-13 00:00 | LEVOTHYROXINE SODIUM | [facility] | + + + + | 2022-11-07 00:00 | levothyroxine sodium 0.05 | [facility] | | | MG Oral Tablet [Synthroid] | | + + + + | 2022-12-04 00:00 | levothyroxine sodium 0.05 | [facility] | | | MG Oral Tablet [Synthroid] | | + + + + | 2022-11-07 00:00 | LOSARTAN POTASSIUM | [facility] | + + + + | 2022-12-04 00:00 | LOSARTAN POTASSIUM | [facility] | + + + + | 2023-01-13 00:00 | LOSARTAN POTASSIUM | [facility] | + + + + | 2022-11-07 00:00 | losartan potassium 25 MG | [facility] | | | Oral Tablet [Cozaar] | | + + + + | 2022-12-04 00:00 | losartan potassium 25 MG | [facility] | | | Oral Tablet [Cozaar] | | + + + + | 2022-11-07 00:00 | LOSARTAN POTASSIUM | [facility] | + + + + | 2022-12-04 00:00 | LOSARTAN POTASSIUM | [facility] | + + + + | 2023-01-13 00:00 | LOSARTAN POTASSIUM | [facility] | + + + + | 2022-11-07 00:00 | losartan potassium 50 MG | [facility] | | | Oral Tablet [Cozaar] | | + + + + | 2022-12-04 00:00 | losartan potassium 50 MG | [facility] | | | Oral Tablet [Cozaar] | | + + + + Problems + + + + | date | description | facility | + + + + | 2014-12-17 00:00 | Hyperventilation syndrome | [facility] | + + + + | 2014-12-17 00:00 | Opiate withdrawal | [facility] | + + + + | 2014-12-17 00:00 | Opioid withdrawal | [facility] | + + + + | 2014-12-17 00:00 | Opioid withdrawal | [facility] | + + + + | 2014-12-17 00:00 | Anxiety about health | [facility] | + + + + | 2014-12-17 00:00 | Anxiety about health | [facility] | + + + + | 2014-12-17 00:00 | 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 | | + + + + | 2014-12-17 00:00 | 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 | | + + + + | 2017-03-12 00:00 | Systolic essential | [facility] | | | hypertension | | + + + + | 2017-03-12 00:00 | Systolic essential | [facility] | | | hypertension | | + + + + | 2017-08-27 00:00 | Acute UTI | [facility] | + + + + | 2017-08-27 00:00 | Acute urinary tract | [facility] | | | infection | | + + + + | 2017-08-27 00:00 | Acute urinary tract | [facility] | | | infection | | + + + + | 2017-08-27 00:00 | Malaise | [facility] | + + + + | 2017-08-27 00:00 | Malaise | [facility] | + + + + | 2017-08-27 00:00 | Chills | [facility] | + + + + | 2017-08-27 00:00 | Chills | [facility] | + + + + | 2018-06-10 00:00 | Nonspecific chest pain | [facility] | + + + + | 2018-06-10 00:00 | Nonspecific chest pain | [facility] | + + + + | 2018-06-10 00:00 | Weakness | [facility] | + + + + | 2018-06-10 00:00 | Weakness | [facility] | + + + + | 2019-06-22 00:00 | UTI (urinary tract | [facility] | | | infection) | | + + + + | 2019-06-22 00:00 | Asymptomatic hypertension | [facility] | + + + + | 2019-06-22 00:00 | Asymptomatic hypertension | [facility] | + + + + | 2019-06-22 00:00 | Urinary tract infection | [facility] | + + + + | 2019-06-22 00:00 | Urinary tract infection | [facility] | + + + + [...] + + + | 2022-11-07 09:09 | SHELTER (CURRENT) USE OF | [facility] | | | ASPIRIN | | + + + + | 2022-11-07 09:09 | OTHER CUSTODIAN ATHLETIC EQUIPMENT (CURRENT) | [facility] | | | DRUG THERAPY | | + + + + | 2022-11-07 09:09 | ALLERGY STATUS TO OTH | [facility] | | | DRUG/MEDS/BIOL SUBST STATUS | | | | | | + + + + | 2022-12-04 00:00 | Hypertension | [facility] | + + + + | 2022-12-04 00:00 | Hypertension | [facility] | + + + + | 2022-12-04 00:00 | Headache | [facility] | + + + + | 2022-12-04 00:00 | Headache | [facility] | + + + + | 2022-12-04 12:53 | HYPOTHYROIDISM, | [facility] | | | UNSPECIFIED | | + + + + | 2022-12-04 12:53 | Essential (primary) | [facility] | | | hypertension | | + + + + | 2022-12-04 12:53 | SHELTER (CURRENT) USE OF | [facility] | | | ASPIRIN | | + + + + | 2022-12-04 12:53 | OTHER CUSTODIAN ATHLETIC EQUIPMENT (CURRENT) | [facility] | | | DRUG [...] | 2022-11-07 00:00 | Never smoker | [facility] | + + + + | 2022-12-04 00:00 | Never smoker | [facility] | + + + + [...]
--- OUTSIDE RECORDS SUMMARY | ~2023-01-28 | XMS | Continuity of Care Document ---
Demographics + + + | Address | [address] | | | [place] [address] | + + + | Preferred Language | Unknown | + + + | Marital Status | | + + + | Restoration Affiliation | Unknown | + + + | Race | White | + + + | Ethnic Group | Not or | + + + Author + + + | Author | [facility] | + + + | Organization | [facility] | + + + | Address | [address] | | | [place] [address] | + + + | Phone | | + + + Care Team Providers + + + + | Care Feather Separator Name | Role | Phone | + [...] 2022-11-07 00:00 | No vaccine administered | [facility] | + + + + | 2022-12-04 00:00 | No vaccine administered | [facility] | + + + + Medications + + + + | date | description | facility | + + + + | 2022-11-07 00:00 | CYANOCOBALAMIN (VITAMIN | [facility] | | | B-12) | | + + + + | 2022-12-04 00:00 | CYANOCOBALAMIN (VITAMIN | [facility] | | | B-12) | | + + + + | 2022-11-07 00:00 | vitamin B12 0.05 MG Oral | [facility] | | | Tablet | | + + + + | 2022-12-04 00:00 | vitamin B12 0.05 MG Oral | [facility] | | | Tablet | | + + + + | 2022-11-07 00:00 | SIMVASTATIN | [facility] | + + + + | 2022-12-04 00:00 | SIMVASTATIN | [facility] | + + + + | 2023-01-13 00:00 | SIMVASTATIN | [facility] | + + + + | 2022-11-07 00:00 | simvastatin 40 MG Oral | [facility] | | | Tablet [Zocor] | | + + + + | 2022-12-04 00:00 | simvastatin 40 MG Oral | [facility] | | | Tablet [Zocor] | | + + + + | 2022-11-07 00:00 | ALLOPURINOL | [facility] | + + + + | 2022-12-04 00:00 | ALLOPURINOL | [facility] | + + + + | 2023-01-13 00:00 | ALLOPURINOL | [facility] | + + + + | 2022-11-07 00:00 | allopurinol 100 MG Oral | [facility] | | | Tablet | | + + + + | 2022-12-04 00:00 | allopurinol 100 MG Oral | [facility] | | | Tablet | | + + + + | 2022-11-07 00:00 | ALLOPURINOL | [facility] | + + + + | 2022-12-04 00:00 | ALLOPURINOL | [facility] | + + + + | 2023-01-13 00:00 | ALLOPURINOL | [facility] | + + + + | 2022-11-07 00:00 | allopurinol 300 MG Oral | [facility] | | | Tablet | | + + + + | 2022-12-04 00:00 | allopurinol 300 MG Oral | [facility] | | | Tablet | | + + + + | 2022-11-07 00:00 | CARVEDILOL | [facility] | + + + + | 2022-12-04 00:00 | CARVEDILOL | [facility] | + + + + | 2023-01-13 00:00 | CARVEDILOL | [facility] | + + + + | 2022-11-07 00:00 | carvedilol 12.5 MG Oral | [facility] | | | Tablet | | + + + + | 2022-12-04 00:00 | carvedilol 12.5 MG Oral | [facility] | | | Tablet | | + + + + | 2022-11-07 00:00 | CEFDINIR | [facility] | + + + + | 2022-12-04 00:00 | CEFDINIR | [facility] | + + + + | 2023-01-13 00:00 | CEFDINIR | [facility] | + + + + | 2022-11-07 00:00 | cefdinir 300 MG Oral | [facility] | | | Capsule | | + + + + | 2022-12-04 00:00 | cefdinir 300 MG Oral | [facility] | | | Capsule | | + + + + | 2022-11-07 00:00 | FINASTERIDE | [facility] | + + + + | 2022-12-04 00:00 | FINASTERIDE | [facility] | + + + + | 2022-11-07 00:00 | finasteride 5 MG Oral | [facility] | | | Tablet [Proscar] | | + + + + | 2022-12-04 00:00 | finasteride 5 MG Oral | [facility] | | | Tablet [Proscar] | | + + + + | 2022-11-07 00:00 | NITROGLYCERIN | [facility] | + + + + | 2022-12-04 00:00 | NITROGLYCERIN | [facility] | + + + + | 2023-01-13 00:00 | NITROGLYCERIN | [facility] | + + + + | 2022-11-07 00:00 | nitroglycerin 0.4 MG | [facility] | | | Sublingual Tablet | | | | [Nitrostat] | | + + + + | 2022-12-04 00:00 | nitroglycerin 0.4 MG | [facility] | | | Sublingual Tablet | | | | [Nitrostat] | | + + + + | 2019-06-05 00:00 | CEPHALEXIN | [facility] | + + + + | 2019-06-05 00:00 | CEPHALEXIN | [facility] | + + + + | 2019-06-05 00:00 | cephalexin 500 MG Oral | [facility] | | | Capsule [Keflex] | | + + + + | 2022-12-04 00:00 | CARVEDILOL | [facility] | + + + + | 2023-01-13 00:00 | CARVEDILOL | [facility] | + + + + | 2022-12-04 00:00 | carvedilol 6.25 MG Oral | [facility] | | | Tablet [Coreg] | | + + + + | 2022-11-07 00:00 | ASPIRIN | [facility] | + + + + | 2022-12-04 00:00 | ASPIRIN | [facility] | + + + + | 2023-01-13 00:00 | ASPIRIN | [facility] | + + + + | 2022-11-07 00:00 | aspirin 81 MG Delayed | [facility] | | | Release Oral Tablet | | + + + + | 2022-12-04 00:00 | aspirin 81 MG Delayed | [facility] | | | Release Oral Tablet | | + + + + | 2017-08-27 00:00 | CEPHALEXIN | [facility] | + + + + | 2017-08-27 00:00 | CEPHALEXIN | [facility] | + + + + | 2017-11-06 00:00 | CEPHALEXIN | [facility] | + + + + | 2017-11-06 00:00 | CEPHALEXIN | [facility] | + + + + | 2017-08-27 00:00 | cephalexin 500 MG Oral | [facility] | | | Capsule | | + + + + | 2017-11-06 00:00 | cephalexin 500 MG Oral | [facility] | | | Capsule | | + + + + | 2022-11-07 00:00 | CLOPIDOGREL BISULFATE | [facility] | + + + + | 2022-12-04 00:00 | CLOPIDOGREL BISULFATE | [facility] | + + + + | 2023-01-13 00:00 | CLOPIDOGREL BISULFATE | [facility] | + + + + | 2022-11-07 00:00 | clopidogrel 75 MG Oral | [facility] | | | Tablet | | + + + + | 2022-12-04 00:00 | clopidogrel 75 MG Oral | [facility] | | | Tablet | | + + + + | 2022-11-07 00:00 | HYDROCHLOROTHIAZIDE | [facility] | + + + + | 2022-12-04 00:00 | HYDROCHLOROTHIAZIDE | [facility] | + + + + | 2023-01-13 00:00 | HYDROCHLOROTHIAZIDE | [facility] | + + + + | 2022-11-07 00:00 | hydrochlorothiazide 25 MG | [facility] | | | Oral Tablet | | + + + + | 2022-12-04 00:00 | hydrochlorothiazide 25 MG | [facility] | | | Oral Tablet | | + + + + | 2022-11-07 00:00 | 24 HR isosorbide | [facility] | | | mononitrate 30 MG Extended | | | | Release Oral Tab | | + + + + | 2022-12-04 00:00 | 24 HR isosorbide | [facility] | | | mononitrate 30 MG Extended | | | | Release Oral Tab | | + + + + | 2022-11-07 00:00 | ISOSORBIDE MONONITRATE | [facility] | + + + + | 2022-12-04 00:00 | ISOSORBIDE MONONITRATE | [facility] | + + + + | 2023-01-13 00:00 | ISOSORBIDE MONONITRATE | [facility] | + + + + | 2022-11-07 00:00 | TADALAFIL | [facility] | + + + + | 2022-12-04 00:00 | TADALAFIL | [facility] | + + + + | 2023-01-13 00:00 | TADALAFIL | [facility] | + + + + | 2022-11-07 00:00 | tadalafil 5 MG Oral Tablet | [facility] | | | [Real] | | + + + + | 2022-12-04 00:00 | tadalafil 5 MG Oral Tablet | [facility] | | | [Margys] | | + + + + | 2022-11-07 00:00 | LUTEIN | [facility] | + + + + | 2022-12-04 00:00 | LUTEIN | [facility] | + + + + | 2023-01-13 00:00 | LUTEIN | [facility] | + + + + | 2022-11-07 00:00 | lutein 20 MG Oral Tablet | [facility] | + + + + | 2022-12-04 00:00 | lutein 20 MG Oral Tablet | [facility] | + + + + | 2022-11-07 00:00 | Berberine 90 MG / | [facility] | | | Cholecalciferol 500 UNT / | | | | Hops extract 370 | | + + + + | 2022-12-04 00:00 | Berberine 90 MG / | [facility] | | | Cholecalciferol 500 UNT / | | | | Hops extract 370 | | + + + + | 2022-11-07 00:00 | VIT D3 & K/BERBERINE | [facility] | | | HCL/HOPS | | + + + + | 2022-12-04 00:00 | VIT D3 & K/BERBERINE | [facility] | | | HCL/HOPS | | + + + + | 2022-11-07 00:00 | TAMSULOSIN HCL | [facility] | + + + + | 2022-12-04 00:00 | TAMSULOSIN HCL | [facility] | + + + + | 2023-01-13 00:00 | TAMSULOSIN HCL | [facility] | + + + + | 2022-11-07 00:00 | tamsulosin hydrochloride | [facility] | | | 0.4 MG Oral Capsule | | | | [Flomax] | | + + + + | 2022-12-04 00:00 | tamsulosin hydrochloride | [facility] | | | 0.4 MG Oral Capsule | | | | [Flomax] | | + + + + | 2022-11-07 00:00 | LEVOTHYROXINE SODIUM | [facility] | + + + + | 2022-12-04 00:00 | LEVOTHYROXINE SODIUM | [facility] | + + + + | 2023-01-13 00:00 | LEVOTHYROXINE SODIUM | [facility] | + + + + | 2022-11-07 00:00 | levothyroxine sodium 0.05 | [facility] | | | MG Oral Tablet [Synthroid] | | + + + + | 2022-12-04 00:00 | levothyroxine sodium 0.05 | [facility] | | | MG Oral Tablet [Synthroid] | | + + + + | 2022-11-07 00:00 | LOSARTAN POTASSIUM | [facility] | + + + + | 2022-12-04 00:00 | LOSARTAN POTASSIUM | [facility] | + + + + | 2023-01-13 00:00 | LOSARTAN POTASSIUM | [facility] | + + + + | 2022-11-07 00:00 | losartan potassium 25 MG | [facility] | | | Oral Tablet [Cozaar] | | + + + + | 2022-12-04 00:00 | losartan potassium 25 MG | [facility] | | | Oral Tablet [Cozaar] | | + + + + | 2022-11-07 00:00 | LOSARTAN POTASSIUM | [facility] | + + + + | 2022-12-04 00:00 | LOSARTAN POTASSIUM | [facility] | + + + + | 2023-01-13 00:00 | LOSARTAN POTASSIUM | [facility] | + + + + | 2022-11-07 00:00 | losartan potassium 50 MG | [facility] | | | Oral Tablet [Cozaar] | | + + + + | 2022-12-04 00:00 | losartan potassium 50 MG | [facility] | | | Oral Tablet [Cozaar] | | + + + + Problems + + + + | date | description | facility | + + + + | 2014-12-17 00:00 | Hyperventilation syndrome | [facility] | + + + + | 2014-12-17 00:00 | Opiate withdrawal | [facility] | + + + + | 2014-12-17 00:00 | Opioid withdrawal | [facility] | + + + + | 2014-12-17 00:00 | Opioid withdrawal | [facility] | + + + + | 2014-12-17 00:00 | Anxiety about health | [facility] | + + + + | 2014-12-17 00:00 | Anxiety about health | [facility] | + + + + | 2014-12-17 00:00 | Psychogenic | [facility] | | | hyperventilation | | + + + + | 2014-12-17 00:00 | Psychogenic | [facility] | | | hyperventilation | | + + + + | 2017-03-12 00:00 | Systolic essential | [facility] | | | hypertension | | + + + + | 2017-03-12 00:00 | Systolic essential | [facility] | | | hypertension | | + + + + | 2017-08-27 00:00 | Acute UTI | [facility] | + + + + | 2017-08-27 00:00 | Acute urinary tract | [facility] | | | infection | | + + + + | 2017-08-27 00:00 | Acute urinary tract | [facility] | | | infection | | + + + + | 2017-08-27 00:00 | Malaise | [facility] | + + + + | 2017-08-27 00:00 | Malaise | [facility] | + + + + | 2017-08-27 00:00 | Chills | [facility] | + + + + | 2017-08-27 00:00 | Chills | [facility] | + + + + | 2018-06-10 00:00 | Nonspecific chest pain | [facility] | + + + + | 2018-06-10 00:00 | Nonspecific chest pain | [facility] | + + + + | 2018-06-10 00:00 | Weakness | [facility] | + + + + | 2018-06-10 00:00 | Weakness | [facility] | + + + + | 2019-06-22 00:00 | UTI (urinary tract | [facility] | | | infection) | | + + + + | 2019-06-22 00:00 | Asymptomatic hypertension | [facility] | + + + + | 2019-06-22 00:00 | Asymptomatic hypertension | [facility] | + + + + | 2019-06-22 00:00 | Urinary tract infection | [facility] | + + + + | 2019-06-22 00:00 | Urinary tract infection | [facility] | + + + + | 2022-11-07 09:09 | HYPOTHYROIDISM, | [facility] | | | UNSPECIFIED | | + + + + | 2022-11-07 09:09 | PURE HYPERCHOLESTEROLEMIA, | [facility] | | | UNSPECIFIED | | + + + + | 2022-11-07 09:09 | Essential (primary) | [facility] | | | hypertension | | + + + + | 2022-11-07 09:09 | [facility] (CURRENT) USE OF | [facility] | | | ASPIRIN | | + + + + | 2022-11-07 09:09 | 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) | [facility] | | | DRUG THERAPY | | + + + + | 2022-11-07 09:09 | ALLERGY STATUS TO OTH | [facility] | | | DRUG/MEDS/BIOL SUBST STATUS | | | | | | + + + + | 2022-12-04 00:00 | Hypertension | [facility] | + + + + | 2022-12-04 00:00 | Hypertension | [facility] | + + + + | 2022-12-04 00:00 | Headache | [facility] | + + + + | 2022-12-04 00:00 | Headache | [facility] | + + + + | 2022-12-04 12:53 | HYPOTHYROIDISM, | [facility] | | | UNSPECIFIED | | + + + + | 2022-12-04 12:53 | Essential (primary) | [facility] | | | hypertension | | + + + + | 2022-12-04 12:53 | [facility] (CURRENT) USE OF | [facility] | | | ASPIRIN | | + + + + | 2022-12-04 12:53 | 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
[2023-01-28 11:39] LABS: BASOPHILS 0.9 % (0-2); EOSINOPHILS 1.7 % (0-6); HEMATOCRIT 33.2 % (35.0-50.0); HEMOGLOBIN 10.9 g/dL (12.0-18.0); LYMPHOCYTES 9.7 % (24-44); MCHC 32.8 g/dl (30-36); MCV 97.7 fl (81-99); MONOCYTES 7.7 % (0-12); PLATELET COUNT 210 K/uL (140-440); RDW 14.3 (10.5-15.0)
[2023-01-28 11:56] LABS: ALBUMIN 3.2 g/dL (3.4-5.0); ALBUMIN/GLOBULIN RATIO 1.14 (1.1-2.4); ANION GAP 12.3 (7-21); BILIRUBIN, TOTAL 0.4 ng/dL (0.2-1.0); BUN/CREATININE RATIO 18.32 (6.0-28.6); CALCIUM 8.5 mg/dL (8.5-10.1); CREATININE, SERUM 1.31 mg/dL (0.70-1.30); POTASSIUM 4.3 mmol/L (3.5-5.1)
[2023-01-28 12:45] LABS: BILIRUBIN, URINE NEGATIVE (negative); BLOOD/HGB, URINE NEGATIVE (Negative); KETONE, URINE TRACE (Negative); LEUK ESTERASE, URINE NEGATIVE (negative); NITRITE, URINE NEGATIVE (negative)
--- NOTE | 2023-01-28 14:25 | NUR ---
PT ARRIVES TO FLOOR VIA WHEELCHAIR ACCOMPANIED BY AND GRIFFIN NICE. BEDSIDE REPORT RECEIVED. PT AMBULATES FROM WHEELCHAIR TO BED WITH NO ISSUES. VITALS COMPLETE. QUICK ADMIT COMPLETE. ASSESSMENT COMPLETE. LUNG SOUNDS CLEAR. BOWEL TONES ACTIVE. PT REPORTING TENDERNESS WITH ABD PALPATION IN MID LOWER ABD. PT REPORTING ABD PAIN 1/10 AT THIS TIME. PT DENIES PRN PAIN MEDICATION WHEN OFFERED. BILATERAL FLANK SCARS NOTED PER PT "I HAD A BIOPSY A FEW WEEKS AGO." SCAB NOTED TO PTs BUTTOCKS. 2RN SKIN ASSESSMENT WITH GRIFFIN NICE. PT REQUESTING TO USE RESTROOM. PT AMBULATES SBA FROM BED TO RESTROOM AND BACK TO BED. VOID NOTED. PT EDUCATED RN PATIENT CARE LIGHT, PT VERBALIZES UNDERSTANDING. PROVIDED PT WITH TV REMOTE. PT DENIES ANY OTHER NEEDS AT THIS TIME. CALL LIGHT IN REACH.
[2023-01-28 14:33] VITALS: BP 213/78
--- NOTE | 2023-01-28 15:32 | NUR ---
DR COUGHLIN CALLED REGARDING PTS BLOOD PRESSURE. NEW ORDERS GIVEN, ORDERS ENTERED, REPEAT BACK PERFORMED. PTS PRIMARY RN UPDATED.
--- NOTE | 2023-01-28 15:43 | NUR ---
IN TO ADMINISTER MEDICATION, SEE MAR. PER PT IT IS OKAY FOR THIS RN TO CALL DAUGHTER SHASTA BACK AND GIVE UPDATE.
--- NOTE | 2023-01-28 15:46 | NUR ---
PT OK'D TALKING TO DAUGHTER SHASTA CAMPA. CALL BACK #is [phone]
--- NOTE | 2023-01-28 16:26 | NUR ---
THIS RN CALLED PTs DAUGHTER SHASTA FELTON BACK. QUESTIONS ANSWERED. INFORMED BY PTs DAUGHTER PT HAD "BONE MARROW BIOPSY AT THE GA IN [place] AND THE PT WAS SUPPOSED TO GO IN TODAY TO GO OVER THE RESULTS."
--- NOTE | 2023-01-28 17:12 | NUR ---
IN TO ROUND ON PT. PT UP IN BED WATCHING TV. DIVERTICULITUS INFORMATION PACKETS PROVIDED. EDUCATION PROVIDED. QUESTIONS ANSWERED. PT DENIES ANY OTHER NEEDS AT THIS TIME. CALL LIGHT IN REACH.
[2023-01-28 17:59] VITALS: BP 212/68
--- NOTE | 2023-01-28 18:18 | NUR ---
THIS RN CALLED DR. COUGHLIN REGARDING PTs BP. INFORMED DR. COUGHLIN OF PTs HOME MEDICATIONS FOR BP. PER CED GET PT ON HOME MEDICATIONS FOR BP AND RECHECK BP IN AN HOUR. VERIFIED WITH READBACK.
--- NOTE | 2023-01-28 18:41 | NUR ---
IN TO ADMINISTER MEDICATION, SEE MAR. PT SITTING UP IN BED AND TAKES PO MEDICATIONS WITH SIP OF WATER WITH NO ISSUES. PT DENIES ANY OTHER NEEDS AT THIS TIME. CALL LIGHT IN REACH.
--- NOTE | 2023-01-28 19:09 | NUR ---
REPORT GIVEN TO GRIFFIN TORRES. INFORMED GRIFFIN TORRES THAT DR. COUGHLIN WANTS PTs BP RECHECKED AN HOUR FROM ADMINISTRATION OF COREG AND COZAAR. ALSO INFORMED GRIFFIN TORRES THAT PT DOES NOT WANT TO TAKE NARCOTICS DUE TO SUICIDAL IDEATION WITH FENTANYL IN PAST.
[2023-01-28 20:20] VITALS: BP 175/65
--- NOTE | 2023-01-28 20:31 | NUR ---
Bala is resting in bed without complaint, states pain is at a 1, Denies nause, passing some flatus, minimal abdominal tenderness with palpation, +BT's. VSS with BP slowly coming down and is now 175/65, MD notified - continue to monitor, no new orders given. Call light in reach. Bedside report given by Charley.
--- NOTE | 2023-01-28 21:06 | NUR ---
CALL LIGHT ANSWERED, pt ASKING FOR HELP WITH LOWERING THE HOB, pt EDUCATED ON USE OF CALL LIGHT AND SHOWN HOW HE CAN DO THIS HIMSELF, OTHER FUNCTIONS ALSO SHOWN TO pt. pt VERY APPRECIATIVE, URINAL EMPTIED AND OUTPUT ON I&O'S SHEET. NO ADDIRTIONAL NEEDS, CALL LIGHT IN REACH.
--- NOTE | 2023-01-28 22:31 | NUR ---
MD into see patient, orders written, Bala continues to be comfortable with minimal abd. discomfort, Given tylenol per orders prior to bedtime. lights out, call light in reach.
[2023-01-28 23:10] VITALS: BP 157/66
--- NOTE | 2023-01-29 00:23 | NUR ---
Bala is resting on and off, lights out, appears comfortable, call light in reach, RR=18.
[2023-01-29 01:27] VITALS: BP 150/66
--- NOTE | 2023-01-29 02:36 | NUR ---
Bala appears to be sleeping between care. VSS, States he is comfortable, lights out and call light in reach.
--- NOTE | 2023-01-29 04:40 | NUR ---
Bala is resting with eyes closed, appears comfortable, call light in reach.
[2023-01-29 05:42] LABS: BASOPHILS 0.7 % (0-2); EOSINOPHILS 3.3 % (0-6); HEMATOCRIT 30.6 % (35.0-50.0); HEMOGLOBIN 10.2 g/dL (12.0-18.0); LYMPHOCYTES 9.7 % (24-44); MCH 32.4 (27-36); MCHC 33.4 g/dl (30-36); MCV 96.8 fl (81-99); MONOCYTES 10.1 % (0-12); NEUTROPHILS 76.2 % (39-80); PLATELET COUNT 186 K/uL (140-440); RBC 3.16 M/ul (4.3-5.7); RDW 13.9 (10.5-15.0)
--- NOTE | 2023-01-29 05:46 | NUR ---
Bala slept well for second half of shift, He has had no c/o abdominal pain, BP has come down to WNL. Abdonimal assessment without change, Recieving IV ABX, and IV fluids per orders.
[2023-01-29 05:48] LABS: ANION GAP 13.9 (7-21); CALCIUM 8.4 mg/dL (8.5-10.1); CREATININE, SERUM 1.5 mg/dL (0.70-1.30); POTASSIUM 3.9 mmol/L (3.5-5.1)
--- NOTE | 2023-01-29 07:31 | NUR ---
REPORT RECEIVED FROM GRIFFIN TORRES. PT RESTING IN BED WITH EYES CLOSED. RESPIRATIONS EVEN AND UNLABORED. BED RAILS UP. CALL LIGHT WITHIN REACH. PT ALLOWED TO REST.
--- NOTE | 2023-01-29 08:16 | NUR ---
MORNING ASSESSMENT AND MEDICATIONS DUE. PT AWAKEN AND SITTING ON EDGE OF BED FOR BREAKFAST. PT DENIES ANY PAIN OR NAUSEA. ABDOMEN SOFT AND NON TENDER, PT EVEN DENIES PAIN OR TENDERNESS WITH PALPATION OF ABDOMEN. BOWEL TONES ACTIVE. PT ALERT AND OREINTED TO ALL. 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 PILLS GIVEN WITH APPLESAUE AND PT ABLE TO SWALLOW THEM WITHOUT ISSUE. LUNG SOUNDS CLEAR IN UPPER LOBES. RUB HEARD IN BASES. I.S. PROVIDED PT DEMONSTRATES USE REACHING 750-1000ML X5. TRACE EDEMA TO BLE. PT REPORTS MINIMAL APPITITE BUT IS TOLERATING CLEARS WITHOUT ISSUE. URINAL EMPTIED OF 350ML CLEAR YELLOW URINE. PT DENIES ADDITIONAL REQUESTS OR COMPLAINTS. CALL LIGHT WITHIN REACH. BED RAILS UP.
[2023-01-29] MEDS ORDERED: NITROSTAT0.4 MG SL (08:20)
[2023-01-29] MEDS ORDERED: ZOCOR20 MG PO (08:21)
[2023-01-29] MEDS ORDERED: LEVOTHYROXINE88 MCG PO (08:31)
--- NOTE | 2023-01-29 08:40 | NUR ---
MED REC COMPLETE
--- NOTE | 2023-01-29 09:50 | NUR ---
THIS RN TO ROOM TO CHECK ON PT. PT REPORTS HE HAD "A LITTLE BITE" OF PAIN IN LLQ OF ABDOMEN "A LITTLE WHILE AGO." SINCE RESOLVED. PT DENIES NEED FOR TYELNOL AT THIS TIME. PT DENIES NAUSEA. PT RESTING IN BED. PTS AT BEDSIDE. PT DENIES ADDITIONAL REQUESTS OR COMPLAINTS. BLOOD PRESSURE IMPROVING. CALL LIGHT WIHTIN REACH. BED RAILS UP.
[2023-01-29 09:52] VITALS: BP 157/68
--- NOTE | 2023-01-29 10:30 | NUR ---
Spoke with Bala and his . They live in a house with 3 steps in and 17 steps inside the home. He denies any needs. 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 He does not use any DME and he is a . He uses the [facility] and their pharmacy. Pt plans on dc to home when cleared medically.
--- NOTE | 2023-01-29 10:50 | NUR ---
THIS RN TO ROOM TO CHECK ON PT. PT CONTINUES TO DENY PAIN AND NAUSEA. PT AND FAMILY UPDATED ON PLAN OF CARE AND STATE THEIR QUESTIONS HAVE BEEN ANSWERED. PT DENIES ADDITIONAL REQUESTS OR COMPLAINTS. URINAL EMPTID OF 400ML OF CLEAR LIGHT YELLOW URINE. NO ADDITIONAL REQUESTS OR COMPLAINTS. CALL LIGHT WITHIN REACH. BED RAILS UP.
--- NOTE | 2023-01-29 11:12 | NUR ---
PT AND IN GOOD SPIRITS. 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 CONSENTED TO PRAYER. PRAYED FOR HEALING AND PATIENCE.
--- NOTE | 2023-01-29 12:06 | NUR ---
THIS RN TO ROOM WITH DR. COUGHLIN FOR ROUNDS. PT RESTING IN BED. PT REPORTS NO PAIN IN ABDOMEN AT THIS TIME. REPORTS HE DOES HAVE OCCATIONAL ACHING PAIN TO LLQ WHITH PO INTAKE, INTERMITTANT. PT UPDATED ON PLAN OF CARE, STATES HIS QUESTIONS HAVE BEEN ANSWERED. NEW IV FLUID ORDERS GIVEN. ORDERS ENTERED, REPEAT BACK PERFORMED. NEW IV FLUIDS STARTED (SEE MAR). PT DENIES NEED FOR PAIN MEDICATION AT THIS TIME. NO ADDITIONAL REQUESTS OR COMPLAINTS. PT NOW SITTING ON EDGE OF BED DRINKING CLEAR LIQUIDS. CALL LIGHT WITHIN REACH. BED RAILS UP.
[2023-01-29 13:29] VITALS: BP 157/57
--- NOTE | 2023-01-29 13:30 | NUR ---
AFTERNOON ASSESSMENT AND MEDICATION DUE. PT RESTING IN BED. PT ENCOURAGED TO GET UP TO AMBULATE AT THIS TIME. PT DECLINES STATING "MABYE LATER." EDUCATION DONE WITH PT AND PT AGREES TO GET UP TO AMBULATE A BIT LATER. PLAN MADE WITH BLACK TOP ROLLER. PT DENIES PAIN AND NAUSEA. PT ALERT AND ORIENTED TO ALL. HEART TONES REGULAR BUT FOR OCCATIONAL MISSED BEAT. LUNG SOUNDS CLEAR. ABODMEN SOFT AND NON TENDER. PT DENIES PAIN EVEN WITH PALPATION. BOWEL TONES ACTIVE. PT DENIES ADDITIONAL ACHING PAINS WITH REMAINDER OF CLEAR LIQUID TRAY. PT ATE ~50% OF CLEAR LIQUID TRAY. PT REPORTS HE IS NOT YET READY FOR FULL LIQUIDS BUT STATES "MAYBE FOR DINNER." MEDICATIONS GIVEN. PT CONTINUES USING I.S. REACHING 1000ML X5. IV ABX GIVEN. PT DECLINES TYLENOL STATING HE DOESN'T NEED IT RIGHT NOW. PT ENOCUARGED TO CALL IF HE CHANGES HIS MIND. PTS RETURNED TO BEDSIDE. UPDATED ON PT STATUS AND PLAN OF CARE. NO ADDITIONAL REQUESTS OR COMPLAINTS. CALL LIGHT WITHIN REACH. BED RAILS UP.
--- NOTE | 2023-01-29 14:58 | NUR ---
PATIENT AND I WALKED TWO LAPS AROUND MED SURG. CANDY CHANGED PATIENT'S BED LINENS. PATIENT IS SITTING UP ON THE COUCH. PATIENT WASHED HIS FACE AND BRUSHED HIS TEETH. ASKED HIM ABOUT A SHOWER AND HE REFUSED.
--- NOTE | 2023-01-29 15:15 | NUR ---
THIS RN TO ROOM TO CHECK ON PT. PT UP AND SITTING ON COUCH. PT REPORTS 1/10 DISCOMFORT TO ABDOMEN AFTER AMBULATION. PT DENIES NEED FOR PAIN MEDICATION. PT REQUESTS "ONE SOMETHING MORE" FOR DINNER. WILL PROVIDE CLEAR LIQUIDS WITH PUDDING PER PT REQUEST. DR. COUGHLIN STATES OK TO ADVANCE DIET TO FULL LIQUID PT FEELS READY. PT DENIES ADDITIONAL REQUESTS OR COMPLAINTS. FAMILY AT BEDSIDE. CALL LIGHT WITHIN REACH.
--- NOTE | 2023-01-29 15:25 | NUR ---
PT HERE FOR ACUTE JEJUNAL DIVERTIULITIS. PT UP WITH STAND BY ASSIST TO RESTROOM AND TO AMBULATE IN THE [place], ASSISTANCE FOR LINE AND TUBE MANAGEMENT. PT TOELRATING CLEAR LIQUID DIET WITH MINIMAL DISCOMFORT. PT REQUESTS SOME FULL LIQUIDS FOR DINNER, PROVIDED. PT DECLINES AFTERNOON TYLENOL STATING IT IS NOT NEEDED. ABDOMEN REMAINS SOFT AND NON TENDER. BOWEL TONES ACTIVE. IV FLUIDS ADJUSTED PER DR. COUGHLIN ORDER. BLOOD PRESSURE STABLE SO FAR THIS SHIFT. FAMILY AT BEDSIDE AND UPDATED ON PLAN OF CARE. PT VOIDING QUANTITY SUFFICIENT. PT USES CALL LIGHT AND MAKES NEEDS KNOWN.
--- NOTE | 2023-01-29 16:40 | NUR ---
THIS RN TO ROOM TO CHECK ON PT. PT HAS MOVED SELF BACK TO BED. PT DENIES PAIN AND NAUSEA. PUDDING PROVIDED WITH DINNER PER PT REQUEST. PT DENIES ADDITIONAL REQUESTS OR COMPLAINTS. CALL LIGHT WITHIN REACH. BED RAILS UP.
[2023-01-29 17:24] VITALS: BP 193/68
--- NOTE | 2023-01-29 17:48 | NUR ---
PTS BLOOD PRESSURE ELEVATED ONCE AGAIN. PRN MEDICATION GIVEN. PT REPORTS HE IS EATING PUDDING AND CLEAR LIQUIDS "SLOWLY AND THE PAIN HASN'T COME BACK." PT DENIES NAUSEA WELL. PT DENIES ADDITIONAL REQUESTS OR COMPLAINTS. CALL LIGHT WITHIN REACH. BED RAILS UP.
--- NOTE | 2023-01-29 20:06 | NUR ---
Bala is in bed, no distress, no complaints, stated he had a good, denies nausea, +BT's, VSS with BP WNL, watch show on tablet, call light in reach. Bedside report given by Keya.
[2023-01-29 20:18] VITALS: BP 168/58
--- NOTE | 2023-01-29 23:10 | NUR ---
Bala appears asleep, appears comfortable, no distress, Refused routine tylenol this evening, stated he didnt feel he needed it. IV infusing, lights out, call light in reach.
--- NOTE | 2023-01-30 01:07 | NUR ---
Bala is awake now watching TV, sleeping on and off, No complaints of pain or discomfort, no nausea. call light in reach.
--- NOTE | 2023-01-30 04:51 | NUR ---
Bala's assessment without change, slept off and on, minimal discomfort, SCD's on, VSS, Denies nausea or cramping. LR infusing@ 85/h. Urine output QS. Bala has no complaints, lights out and call light in reach.
[2023-01-30 06:45] VITALS: BP 185/72
--- NOTE | 2023-01-30 07:09 | NUR ---
REPORT RECEIVED FROM GRIFFIN TORRES. PT RESTING IN BED. PT REPORTS HE FEELS "BACK TO NORMAL." PT REQUESTS REGULAR FOOD. EDUCATION DONE WITH PT AND PLAN OF CARE DISCUSSED. PT ADVANCED TO FULL LIQUID DIET. PT REPORTS 0/10 PAIN AND DENIES NAUSEA. NO ADDITIONAL REQUESTS OR COMPLAINTS. CALL LIGHT WITHIN REACH. BED RAILS UP.
--- NOTE | 2023-01-30 07:38 | NUR ---
MORNING ASSESSMENT AND MEDICATION DUE. PT SITTIGN ON EDGE OF BED, REPROTS HE IS READY TO GO HOME. PT DENIES PAIN AND NAUSEA. PT ALERT AND OREINTED TO ALL. LUNG SOUNDS CLEAR. PT DEMONSTRATES USE OF I.S. REACHING 1250ML X5. HEART TONES REGULAR. ABODMEN SOFT AND NON TENDER. BOWEL TONES ACTIVE. PT ENCOARUGED TO GET UP TO AMBULATE AFTER BREAKFAST. BLOOD PRESSURE REMAINS ELEVATED. MEDICATION GIVEN EARLY TO ASSIST WITH BLOOD PRESSURE CONTROL. PT REPORTS HE FEELS HUNGRY AND IS EXCITED FOR "MORE THAN JUST LIQUIDS." NO ADDITIONAL REQUESTS OR COMPLAINTS. CALL LIGHT WITHIN REACH. BED RAILS UP.
[2023-01-30 09:10] VITALS: BP 119/61
--- NOTE | 2023-01-30 09:47 | NUR ---
THIS RN TO ROOM. PT CONTINUES TO DENY PAIN AND NAUSEA. PT UP TO AMBULATE IN [place] X 2 LAPS. REPORTS HE TOLERATED BREAFKAST WELL WITHOUT ANY INCREASED PAIN. PTS AT BEDSIDE, UPDATED ON PT STATUS AND PLAN OF CARE. DR. COUGHLIN UPDATED ON PT STAUTS AND ASSESSEMENT. AWAITING NEW ORDERS. NO ADDITIONAL REQUESTS OR COMPLAINTS. PT INDEPENDANT IN ROOM, STEADY ON FEET.
--- NOTE | 2023-01-30 11:13 | NUR ---
THIS RN TO ROOM TO CHECK ONPT. PT RESTING WITH EYES CLOSED. RESPIRATIONS EVEN AND UNLABORED. HEAD OF BED AT 30 DEGREES. PT ALLOWED TO REST. CALL LIGHT WIHTIN REACH. BED RAILS UP.
--- NOTE | 2023-01-30 12:01 | NUR ---
THIS RN TO ROOM TO CHECK ON PT. PT UP IN ROOM, STEADY ON FEET. PT ANTICIPTING LUNCH AND CONTINUES TO REPORT GOOD APPITITE. PT DENIES PAIN AND NAUSEA. NO ADDITOINAL REQUESTS OR COMPLAINTS. CALL LIGHT WITHIN REACH.
--- NOTE | 2023-01-30 12:31 | NUR ---
IV FLUID BAG EMPTIED, PT REQUESTS TO HAVE IV DC'D. CONSULTED AND STATES OK TO SALINE LOCK IV AT THIS TIME. IV FLUSHED AND SALINE LOCKED PER PROTOCOL. CHG CAP APPLIED. PT EATING LUNCH. TOLERATING WELL.PT DENIES PAIN AND NAUSEA. NO ADDITIONAL REQUESTS OR COMPLAINTS. CALL LIGHT WITHIN REACH.
--- NOTE | 2023-01-30 13:29 | NUR ---
AFTERNOON ASSESSMENT AND MEDICATION DUE. PT FINISHED WITH LUNCH. ATE 100%. PT REQUESTS TO HAVE GRAVY OR MOISTURE WITH MEALS TO AIDE WITH SWALLOWING, ADJUSTMENTS MADE TO DIETARY ORDERS. PT REPORTS LUNCH WENT "REALLY WELL." PT DENIES NAUSEA. PT REPORTS HE HAD "ONE LITTLE BIT OF PAIN THAT LASTED ABOUT 2-5 MINUTES AND THEN WENT AWAY." PT DENIES ANY PAIN AT THIS TIME. PT DECLINES AFTERNOON TYLENOL DOSE. PT ALERT AND OREINTED TO ALL. PT REMAINS STEADY ON FEET. LUNG SOUNDS CLEAR. HEART TONES REGULAR. TRACE EDEMA TO BILATERAL ANKLES. ABDOMEN SOFT AND NON TENDER. BOWEL TONES ACTIVE. PT DEMONSTRATES USE OF I.S. REACHING 1000-1250ML X5. PT UP AD RAY TO AMBULATE AND TO RESTROOM. PT DENEIS ADDITIONAL REQUESTS OR COMPLAINTS. CALL LIGHT WITHIN REACH.
[2023-01-30 13:45] VITALS: BP 155/62
--- NOTE | 2023-01-30 15:07 | NUR ---
PT CALL LIGHT ON. PT REQUESTS AFTERNOON TYELNOL FOR CRAMPING IN LOWER ABDOMEN AT 10/07. PT DENIES NAUSEA. SEE MAR FOR MEDICATION GIVEN. PT DENIES ADDITIONAL REQUESTS OR COMPLAINTS. PTS AT BEDSIDE. CALL LIGHT WITHIN REACH. BED RAILS UP.
--- NOTE | 2023-01-30 15:54 | NUR ---
THIS RN TO ROOM TO CHECK ON PT. PT RESTING IN BED. PT REPORTS PAIN IN LOWER ABDOMEN HAS RESOLVED. PT DENIES NAUSEA. PT DENIES ADDITIONAL REQUESTS OR COMPLAINTS. PT REQUESTS TO REST AND DECLINES AMBULATION AT THIS TIME. CALL LIGHT WITHIN REACH. BED RAILS UP.
--- NOTE | 2023-01-30 16:05 | NUR ---
PT HERE FOR ACUTE JEJUNAL DIVERTIULITIS. PT UP WITH STAND BY ASSIST TO RESTROOM AND TO AMBULATE IN THE [place]. BMAT LEVEL 4 AFTER IV WAS SALINE LOCKED. PT NOW INDEPENDANT AND STEADY ON FEET. PT ADVANCED TO REGULAR DIET, TOLERATING WITHOUTNAUSEA BUT WITH SOME . POST PRANDIAL ABDOMINAL DISCOMFORT. RESOLVES WITH TYELNOL. ABDOMEN REMAINS SOFT AND NON TENDER. BOWEL TONES ACTIVE. IV FLUIDS DC'D PER DR. COUHGLIN ORDER. BLOOD PRESSURE STABLE SO FAR THIS SHIFT. FAMILY AT BEDSIDE AND UPDATED ON PLAN OF CARE. PT VOIDING QUANTITY SUFFICIENT. PT USES CALL LIGHT AND MAKES NEEDS KNOWN.
--- NOTE | 2023-01-30 17:16 | NUR ---
THIS RN TO ROOM TO CHECK ON PT. PT UP TO AMBULATE X2 LAPS IN [place], INDEPENDANT AND STEADY ON FEET. PT DENIES ABDOMINAL PAIN OR NAUSEA. PT REPORTS HE FEELS BETTER THAN WHEN HE CAME IN STATING "WHEN I GOT HERE I JUST COUND'T EAT OR DRINK AND THIS MORNING I COULDN'T WAIT FOR BREAKFAST TO COME." PT ANTICIPATING DINNER AND A SHOWER AFTER DINNER. EDUCATION DONE WITH PT REGARDING HIS DIAGNOSIS. PT STATES HIS QUESTIONS HAVE BEEN ANSWERED. NO ADDITIONAL REQUESTS OR COMPLAINTS. CALL LIGHT WITHIN REACH. BED RAILS UP.
[2023-01-30 17:52] VITALS: BP 147/64
--- NOTE | 2023-01-30 18:43 | NUR ---
PT FINISHED WITH SHOWER AND UP TO CHAIR. PT DENIES ANY PAIN OR NAUSEA. PT REPORTS HE WAS ABLE TO TOLERATE ~50% OF DINNER AND STATES NO INCREASED PAIN YET. PT TALKS ABOUT TV STATIONS AND SCHOOL YEARS, TELLING STORIES. NO ADDITIONAL REQUESTS OR COMPLAINTS. CALL LIGHT WITHIN REACH.
--- NOTE | 2023-01-30 19:06 | NUR ---
PATIENT AROUND 1600 WALKED TWO LAPS AROUND MED SURG.
--- NOTE | 2023-01-30 19:16 | NUR ---
CHECKED ON PATIENT. PATIENT IS SITTING UP IN HIS CHAIR WATCHING A FOOTBALL GAME.
--- NOTE | 2023-01-30 19:20 | NUR ---
REPORT RECEIVED FROM SHIRA.
[2023-01-30 21:44] VITALS: BP 186/78
--- NOTE | 2023-01-30 22:19 | NUR ---
ASSESSENT COMPLETE, LARGER MEDICATIONS CRUSHED IN APPLESAUCE D/T SOME SL SWALLOW ISSUE R/T PREVIOUS RADIATION. ABLE TO SWALLOW SMALLER PILLS. PLEASANT, COOPERATIVE WITH CARES, ASKS QUESTIONS NOT RELATED TO CURRENT ILLNESS. DENIES PASSING GAS, HYPOACTIVE LOWER BS, WHILE ACTIVE UPPER BS. ASK ABOUT PAIN MEDICATION, GARRETT TYLENOL GIVEN, WHILE HE SAID HE HAD NO PAIN, HE THEN SAYS SOMETIMES IT GOES ACROSS HERE, HE RUBS HIS LOWER ABDOMEN. STATES DINNER WAS GOOD, FAR NOT MAKING HIS "BELLY HURT BAD", OFFERED AND ACCEPTED PUDDING WITH MEDICATIONS A SNACK. INDEPENDENT WITH AMBULATION, ABLE TO SAY HOW TO GET HELP WHEN NEEDED. LIGHTS OUT, PERSONAL ITEMS WITHIN REACH.
--- NOTE | 2023-01-31 00:36 | NUR ---
ROUNDED, PT ON BACK, EYES CLOSED, RESP EVEN AND UNLABORED.
--- NOTE | 2023-01-31 01:53 | NUR ---
ROUNDED ON PT, AWAKE, IN BED. ASKED ABOUT HIS PAIN, HE SAID YES AT FIRST, THEN HE SAID OH I THOUGHT YOU SAID PEE, SO I SAID YES. DID VOID. NOTED THE URINE COLLECTION "HAT" WAS ON THE FLOOR, LAST WAS IN THE TOILET. ASKED ABOUT PASSING GAS, HE SAID "I HAD A BIG ONE", STATED IT STARTED IN MY UNDERWEAR, THEN "I WASHED THEM OUT IN THE SINK", "THEY ARE HERE SOMEWHERE" WHEN ASKED WHERE THEY WERE. THEY WERE ON THE BED. PLACED IN PT BAG, DISPOSABLE BRIEF PLACED. PT STATED THERE WAS "LOTS OF IT". DOES STATE THAT HIS PAIN COMES AND GOES WHEN HE IS UP. ASKED HOW MUCH TYLENOL HE HAD, TOLD HIM, HE SAID WELL THAT'S ENOUGH. ASK PT IF HE WANTED SOMETHING FOR PAIN NOW, HE DENIED.
--- NOTE | 2023-01-31 04:41 | NUR ---
ROUNDED ON PT, IN BATHROOM, HEARD WATER "SLOSHING", PT WAS USING TOIET WATER TO "CLEAN HIS BOTTOM" FROM WHAT THIS RN COULD SEE. DIRTY ATTENDS ON FLOOR IN FRONT TOILET. FRESH ATTENDS, PT PLACED THE "HAT" ON THE FLOOR WITH URINE IN IT. NO BM IN TOILET. ENCOURAGED TO WASH HANDS WITH SOAP AND WATER. ONCE IN BED, FOCUSED ASSESSMENT ABD, WITH TENDER TO PALPITATION AND ACTIVE BOWEL SOUNDS X 4. PT STATES HE HOPES THIS "QUITS". EDUCATED ON CURRENT ILLNESS. ENCOURAGED TO CALL FOR ASSISTANCE. BATHROOM SMELLED OF RECENT BM.
[2023-01-31 06:00] VITALS: BP 186/74
--- NOTE | 2023-01-31 06:26 | NUR ---
PT INDEPENDENT WITH CARES, TO USE BATHROOM; UNSEEN BM X 2 THIS SHIFT, ONE WAS SEEN (INCONT IN ATTENDS) SOFT; PT STATED THAT IS WAS "ALOT", SCHEDULED TYLENOL FOR PAIN, STATES PAIN IS INTERMITTENT, THIS AM HAVING LOWER BACK PAIN, "FROM THE BED". ACTIVE BOWEL SOUNDS, NO NAUSEA NOTED, OR COMPLAINED ABOUT THIS SHIFT. HAS NOT USED THE CALL LIGHT.
--- NOTE | 2023-01-31 07:33 | NUR ---
0714 verbal report recieved from GRIFFIN Brewer. 1239 Pt resting in bed with eyes closed, resp even and unlabored.
--- NOTE | 2023-01-31 08:04 | NUR ---
PT SITTING UP ON EDGE OF BED EATING BREAKFAST AND WATCHING TV. CALL LIGHT IN REACH, NO REQUESTS AT THIS TIME.
[2023-01-31 09:42] VITALS: BP 165/63
--- NOTE | 2023-01-31 09:59 | NUR ---
PT REPORTS 8/10 ACHING/SHARP ABD PAIN, TORADOL RECEIVED, SEE eMAR. PHYSICAL ASSESSMENT COMPLETE. PT RESTING IN BED, CALL LIGHT IN REACH. NO REQUESTS AT THIS TIME.
--- NOTE | 2023-01-31 10:58 | NUR ---
PT IN BED, RESTING WITH EYES CLOSED, RESP EVEN AND UNLABORED.
--- NOTE | 2023-01-31 12:00 | NUR ---
PT RESTING IN BED WITH EYES CLOSED, RESP EVEN AND UNLABORED. ONE VISITOR IN ROOM. NO REQUESTS AT THIS TIME.
--- NOTE | 2023-01-31 12:31 | NUR ---
DR. COUGHLIN INTO SEE PT, PT UP EATING LUNCH. NEW FULL LIQUID DIET ORDER NOTED. LUNCH REMOVED FROM ROOM. NEW TRAY ORDERED LOW FIBER, FULL LIQUID. PT REPORTS HIS ABDOMINAL PAIN IS BETTER AT "1-07/10." IN ROOM VISITING. NO FURTHER REQUESTS AT THIS TIME.
[2023-01-31 12:52] LABS: BASOPHILS 0.4 % (0-2); EOSINOPHILS 3.8 % (0-6); HEMATOCRIT 33.2 % (35.0-50.0); HEMOGLOBIN 10.9 g/dL (12.0-18.0); LYMPHOCYTES 4.2 % (24-44); MCHC 32.8 g/dl (30-36); MCV 97.8 fl (81-99); NEUTROPHILS 83.6 % (39-80); PLATELET COUNT 196 K/uL (140-440); RBC 3.39 M/ul (4.3-5.7); RDW 14.2 (10.5-15.0)
--- NOTE | 2023-01-31 14:19 | NUR ---
PT UP TO BATHROOM. SHEETS SOILD, SHEETS AND PAD REPLACED. PT PASSES BM AND VOIDS, PT FLUSHES HOWEVER, BM PRESENT IN ADULT BRIEF. NEW BRIEF PROVIDED. PT BACK TO BED, CALL LIGHT IN REACH, NO REQUESTS AT THIS TIME.
[2023-01-31 14:25] VITALS: BP 141/58
--- NOTE | 2023-01-31 14:35 | HP ---
[facility] [address], [place] [address] Signed ADMISSION DATE: 01/28/2023 REASON FOR ADMISSION: Acute jejunal diverticulitis. HISTORY OF PRESENT ILLNESS: This 87-year-old white man is well known to me from the past having undergone Hill posterior gastropexy for intractable reflux in the late . He has remained well in that regard overtime. 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 He presented to the emergency room having three days of increasing lower abdominal pain. Evaluation was undertaken by Dr. Lee, emergency room physician, which included a CT scan of the abdomen and pelvis. This demonstrated multiple jejunal diverticula measuring up to 4.6 cm in the left upper quadrant with mesenteric edema and fluid centered around the diverticulitis suggestive of jejunal diverticulitis and enlarged left mesenteric lymph node, considered reactive, extensive colonic diverticulosis without evidence of inflammation, and duodenal diverticulum. Had small bilateral pleural effusions with minimal compressive atelectasis and mild urinary bladder wall thickening. I have advised admission to the hospital with IV antibiotics and fluid administration and monitoring. He has had no hematemesis or blood per rectum. He has had some diarrhea, which he episodically takes an unknown medication, probably Lomotil. REVIEW OF SYSTEMS: He denies any shortness of breath or chest pain. He has had no dysuria or dysphagia. He denies any reflux symptoms. 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 He has adult and grown children and is and lives in [place]. PHYSICAL EXAMINATION: GENERAL: Thin and tall white man, who does not look to be in distress at this time. VITAL SIGNS: Temperature is 97.8, pulse 65, blood pressure 175/65, O2 saturations 98% Electronically Signed By: DEXTER COUGHLIN MD 01/31/23 1435 PATIENT NAME: SKYLER LIMON HISTORY AND PHYSICAL DATE OF : 33 REPORT #: [id number] PHYSICIAN: DEXTER COUGHLIN MD PCP: ROXANA TEJADA REPORT IS CONFIDENTIAL AND NOT TO BE RELEASED WITHOUT AUTHORIZATION [facility] [address], [place] [address] Signed on room air. NECK: Trachea is midline. HEENT: His tongue slightly dry. CHEST: Shows diminished breath sounds, but no evidence of wheeze or rhonchi. HEART: Regular without murmur. ABDOMEN: Nondistended and certainly no evidence of peritonitis is noted. He has no ascites. There is minimal tenderness in the left side of the abdomen. EXTREMITIES: Show no clubbing, cyanosis, or edema. A midline upper abdominal incision is well healed. There is no sign of hernia. LABORATORY STUDIES: Showed a white count of 6.8, hematocrit 33.2, platelets 210,000. Chem profile notable for an elevated chloride of 110, creatinine 1.31, and glucose 132. I have reviewed his imaging study of the CT scan of the abdomen and pelvis. Inflammatory changes in the central abdomen, possibly associated with diverticular changes are noted. Note is made of no sign of hiatal hernia. There are some perihilar clips from prior Hill posterior gastropexy. The pancreas is normal, as is the colon. The liver is also normal on my inspection. Gallbladder is present and benign in appearance. He does have some calcific change of his splenic artery. There are multiple cysts of the left kidney. ASSESSMENT AND PLAN: The patient is considered to have acute jejunal diverticulitis based on CT scan findings and clinical history. He has been admitted to give fluid administration and bowel rest as well as IV antibiotic cefoxitin. He may have prompt improvement of his symptoms, for which advancement of his diet more aggressively could be undertaken. For now, we will allow some clear liquids for comfort and maintain IV fluids, DVT prophylaxis, ulcer prophylaxis, and so forth. Discussed all this with the patient in detail, outlined his underlying pathology so far, as we can tell at this time and we will anticipate followup with his tomorrow and she has gone to bed already at this point. MD KOLTON Segal/MODL /[id number] Electronically Signed By: DEXTER COUGHLIN MD 01/31/23 1435 PATIENT NAME: SKYLER LIMON HISTORY AND PHYSICAL DATE OF : 33 REPORT #: [id number] PHYSICIAN: DEXTER COUGHLIN MD PCP: ROXANA TEJADA REPORT IS CONFIDENTIAL AND NOT TO BE RELEASED WITHOUT AUTHORIZATION [address] [address] Signed cc: YESENIA Stern MD Copies: ROXANA TEJADA WILLIAM S MD ~ Electronically Signed By: DEXTER COUGHLIN MD 01/31/23 1435 PATIENT NAME: SKYLER LIMON HISTORY AND PHYSICAL DATE OF : 33 REPORT #: [id number] PHYSICIAN: DEXTER COUGHLIN MD PCP: ROXANA TEJADA REPORT IS CONFIDENTIAL AND NOT TO BE RELEASED WITHOUT AUTHORIZATION
--- NOTE | 2023-01-31 17:00 | NUR ---
PT IN ROOM. MULTIPLE PHONE CALLS. DENIES CONCERNS, CALL LIGHT IN REACH.
--- NOTE | 2023-01-31 18:43 | NUR ---
STOMACH PAIN HAS BEEN CONTROLLED AND TOLERABLE SINCE RESOLUTION THIS AM WITH TORADOL. PT GETS CONFUSED ABOUT THE DIFFERENCE AND AVIALABLITIY OF TYLENOL VERSUS THE TORADOL, EDUCATION PROVIDED, PT NEEDS REINFORCEMENT. PT HAD ONE BOWEL MOVEMENT, NEEDS REINFORCEMENT NOT TO FLUSH BM. PT GETS UP INDEPENDENTLY FREQUENTLY TO USE BATHROOM OR TO GET INTO THE RECLINER. SCDs OFF DUE TO INCREASED PT ACTIVITY. PT TOLERATING FULL LIQUID DIET WELL.
--- NOTE | 2023-01-31 19:29 | NUR ---
RECEIVED REPORT FROM STELLA @ 872. PT IN BED AT THIS TIME, REMEMBERS THIS RN, EXCEPT NAME, POC DISCUSSED WITH PT. NO NEEDS AT THIS TIME, STATES HIS PAIN IS A "0". SAID HE HAD LINDA'S IN TO VISIT TODAY, WELL HIS .
[2023-01-31 21:04] VITALS: BP 171/66
--- NOTE | 2023-01-31 21:24 | NUR ---
ASSESSMENT COMPLETE, DENIES PAIN, THEN SAYS WELL IT WAS A 1, BUT NOW ITS A ZERO. EXPLAINED TYENOL DUE NEAR 2200, DENIED NEEDING IT NOW. NO BM, REINFORCED TO HAVE RN SEE IT WHEN HE DOES HAVE ONE, WAS ABLE TO SAY HOW TO CALL. STATES ROOM IS WARM, AND WITH COVERS ON HE IS COMFORTABLE. VS COMPLETED BY PROMOTIONS SPECIALIST. FRESH WATER, DOESN'T LIKE ICE IN WATER.
--- NOTE | 2023-01-31 22:08 | NUR ---
tylenol, abx given to pt. crushed tylenol. after he had taken it he requested not to crush any more pills. will reassess with next medications he requires. When rn entered room, pt had eyes closed, resp even and unlabored. had to be woke up to take medications.
--- NOTE | 2023-02-01 00:02 | NUR ---
rounded on pt. laying on his right side, eyes closed, resp even and unlabored.
--- NOTE | 2023-02-01 01:10 | NUR ---
ROUNDED ON PT. LAYING ON RIGHT SIDE, EYES OPEN, SAID GOOD MORNING. DENIED PAIN, SAID HE HAD GOTTEN UP TO USE BATHROOM, SAID HE WIPED AND THATS ALL THERE WAS. FOUND TOILET PAPER WITH EVIDENCE OF SOME STOOL. BOWNISH YELLOW SMEAR. PT DENIED ACTUALLY HAVING A BM, BUT DID SAY, YOU STILL WANT ME TO CALL. NO OTHER NEEDS AT THIS TIME.
--- NOTE | 2023-02-01 03:40 | NUR ---
PT CALLED, SAID HE HAD A BM IN HIS ATTENDS. NOTED MORE THAN A SMEAR BUT LESS THAN A SMALL BM, TOILET PAPER IN TOILET WITH BM ON IT, BUT NO BM IN TOILET. PT ASKED IF HE COULD HAVE SOME IMMODIUM. SAYS AT HOME IT WORKS. ASKED IF HE WEARS ATTENDS AT HOME, HE REPLIED NO BUT I HAVE TO CLEAN MY PANTS OFTEN. SAID THAT AFTER USING IMMODIUM FOR SEVERAL DAYS HE WILL HAVE A "FORMED BM". DENIES PAIN AT THIS TIME. VOIDING WELL. CLEAN ATTENDS GIVEN. NO CHANGE IN CARE AT THIS TIME. DENIES OTHER NEEDS.
[2023-02-01 05:00] VITALS: BP 174/78
--- NOTE | 2023-02-01 05:04 | NUR ---
PT CALLED. HAD HAD A SOFT STOOL MED SIZE, STRAW-BROWN COLOR. FLOATS. PT ABLE TO GET TO BATHROOM VS HAVING INCONT STOOL ON THE WAY. FRESH WATER, NO ICE, GIVEN PER PT CHOICE. FOCUS ASSESSMENT COMPLETED. PT DENIES PAIN, DENIED PAIN WHEN HAVING BM WELL.
--- NOTE | 2023-02-01 07:26 | NUR ---
0716 VERBAL REPORT RECEIVED FROM GRIFFIN VICK. PT RESTING IN BED WITH EYES CLOSED, RESP EVEN AND UNLABORED.
[2023-02-01 08:27] VITALS: BP 169/67
--- NOTE | 2023-02-01 10:11 | NUR ---
PT REPORTS 2/10 DULL STOMACHE PAIN, TOLERABLE AT THIS TIME. PT SITS UP IN RECLINER.
--- NOTE | 2023-02-01 11:02 | NUR ---
PT SITTING UP IN RECLINER SPEAKING WITH VISITORS X2.
--- NOTE | 2023-02-01 12:04 | NUR ---
PT SITTING IN CHAIR EATING LUNCH AND VISITING WITH . PT DENIES NEEDS AT THIS TIME.
--- NOTE | 2023-02-01 13:13 | NUR ---
PT RESTING IN BED. PT EATS 100% OF LUNCH TODAY, TOLERATES THIS WELL. PT PASSES BM, FORMED AND BROWN. FIRST FORMED STOOL NOTED. PT STATES HE IS GOING TO TAKE A NAP. NO REQUESTS AT THIS TIME.
[2023-02-01 13:41] VITALS: BP 138/49
--- NOTE | 2023-02-01 16:19 | NUR ---
PT AMBULATES INDEPENENTLY IN HALLWAYS. PT REPORTS HE HAD 4/10 STOMACH PAIN APPROXIMATLEY 1 HOURS AFTER EATING HIS LUNCH BUT STATES THIS HAS RESOLVED AND HE NOW DENIES STOMACH PAIN. PT BELEIVES THE WHOLE FOODS IN HIS LUNCH CAUSED THE PAIN. PT REQUESTS TO HAVE A FULL LIQUID MEAL FOR DINNER. CALLED DIETARY TO NOTIFY THEM OF THIS REQUEST. NO FURTHER REQUESTS AT THIS TIME.
[2023-02-01 17:56] VITALS: BP 143/62
--- NOTE | 2023-02-01 18:24 | NUR ---
PT RESTING IN BED, CALL LIGHT IN REACH, PT WATCHES TV. NO REQUESTS AT THIS TIME. PT STATES THE STOMACH PAIN HE HAD WITH LUNCH HAS COMPLETELY RESOLVED. PT ATE FULL LIQUID DIET FOR DINNER, STATES HE LIKES THIS BETTER.
--- NOTE | 2023-02-01 19:51 | NUR ---
REPORT RECEIVED. PT LYING IN BED ALERT AND ORIENTED. DENIES PAIN OR NAUSEA. NO NEEDS AT THIS TIME. WHITE BOARD UPDATED. CALL LIGHT IN REACH.
[2023-02-01 21:00] VITALS: BP 177/69
--- NOTE | 2023-02-01 21:17 | NUR ---
EVENING ASSESSMENT COMPLETE. SCHEDULED MEDS ADMIN PER EMAR. VS AND I&O OBTAINED. PT DENIES PAIN OR NAUSEA. PT HAD XL SEMI LIQUID SOFT BM. BOWEL TONES ACTIVE. ABD SOFT. LINENS STRAIGHTENED. EXTRA BLANKET PROVIDED. PT DENIES QUESTIONS OR CONCERNS. CALL LIGHT IN REACH.
--- NOTE | 2023-02-01 23:35 | NUR ---
PT RESTING IN BED WITH EYES CLOSED. RESPIRATIONS EVEN. CALL LIGHT IN REACH.
[2023-02-02] VITALS (9 sets, daily range): BP systolic 160–207; BP diastolic 55–76
--- NOTE | 2023-02-02 02:05 | NUR ---
PT LYING ON RIGHT SIDE RESTING WITH EYES CLOSED. RESPIRATIONS EVEN. HAT IN BATHROOM EMPTIED OF 300 ML YELLOW URINE. CALL LIGHT IN REACH.
--- NOTE | 2023-02-02 03:23 | NUR ---
CALL LIGHT ANSWERED. PT REPORTS "ROOM SPINNING" DIZZINESS AFTER HE ATTEMPTED TO SET UP ON SIDE OF BED. PT LAID BACK DOWN AND SX RESOLVED. THIS RN IN TO ROOM TO ASSESS PT. PT LYING ON RIGHT SIDE, PT ROLLED TO BACK FOR BP. REPORTS NAUSEA AND DIZZINESS WITH MOVEMENT THAT RESOLVES FAIRLY QUICKLY. BP ELEVATED. PT DENIES CHEST PAIN/PRESSURE. DENIES HEADACHE OR VISUAL DISTURBANCES. PRN FOR ELEVATED BP ADMIN PER EMAR. HOB SLIGHTLY ELEVATED FOR SIPS OF WATER. THIS RN AT BEDSIDE PER PT REQUEST.
--- NOTE | 2023-02-02 04:34 | NUR ---
BLOOD PRESSURE IMPROVED AFTER PRN ADMIN. PT DENIES DIZZINESS OR NAUSEA. UP TO SIDE OF BED WITH 2PA TO USE BSC TO VOID. BACK TO BED, NEDRA WELL. NO SX WITH ACTIVITY. PT SITTING ON SIDE OF BED HAVING BITES OF PUDDING. CALL LIGHT IN REACH.
--- NOTE | 2023-02-02 05:44 | NUR ---
PT SL SNORING, HAD TO WAKE UP FOR SCHEDULED AM MEDICATIONS. HE STATED "I THINK I WENT BACK TO SLEEP". DENIED PAIN, DENIES DIZZINESS. UPON LEAVING ROOM, HE SAID TO THIS ENVIRONMENTAL SERVICES TECHNICIAN AND PRIMARY RN MICHAEL, "WELL YOU GIRLS SAVED ANOTHER ONE." BED ALARM ON FOR SAFETY AT THIS TIME. LOWERED HOB PER PT COMFORT. NO OTHER NEEDS.
--- NOTE | 2023-02-02 06:35 | NUR ---
PT RESTING WITH EYES CLOSED. AWAKENS EASILY. SCHEDULED MEDS ADMIN PER EMAR. PT DENIES PAIN, NAUSEA, OR DIZZINESS. BP WNL. NO NEEDS AT THIS TIME. CALL LIGHT IN REACH. BED ALARM FOR SAFETY.
--- NOTE | 2023-02-02 06:57 | NUR ---
DR. COUGHLIN CALLED AND UPDATED ON PT STATUS. NEW TELEPHONE ORDERS RECEIVED VERIFIED WITH READBACK METHOD.
[2023-02-02 07:07] LABS: HEMATOCRIT 30.3 % (35.0-50.0); HEMOGLOBIN 9.8 g/dL (12.0-18.0); MCH 31.6 (27-36); MCHC 32.3 g/dl (30-36); MCV 97.6 fl (81-99); PLATELET COUNT 170 K/uL (140-440); RDW 14.6 (10.5-15.0)
--- NOTE | 2023-02-02 07:14 | NUR ---
VERBAL REPORT RECEIVED FROM GRIFFIN RODRIGUEZ.
[2023-02-02 07:18] LABS: ALBUMIN 2.7 g/dL (3.4-5.0); ANION GAP 9.2 (7-21); BILIRUBIN, TOTAL 0.3 ng/dL (0.2-1.0); BUN/CREATININE RATIO 14.39 (6.0-28.6); CALCIUM 8.4 mg/dL (8.5-10.1); CREATININE, SERUM 1.32 mg/dL (0.70-1.30); MAGNESIUM 1.3 mg/dL (1.8-2.4); POTASSIUM 4.2 mmol/L (3.5-5.1); PROTEIN, TOTAL 5.4 g/dL (6.4-8.2)
--- NOTE | 2023-02-02 07:24 | NUR ---
ASSISTED PATIENT UP STANDING BY THE SIDE OF THE BED USING THE URINAL. PATIENT STATED "ITS SLOW COMING OUT BUT ITS BETTER THAN NOTHING". PATIENT VOIDED 350ML YELLOW URINE. PATIENT GOT UP TO TRY TO WALK AROUND THE ROOM. HE STATED HE FELT OKAY. PATIENT IS BACK IN BED. CALL LIGHT WITHIN REACH.
[2023-02-02 07:33] LABS: BASOPHILS, MANUAL DIFF 2; LYMPHOCYTES, MANUAL DIFF 14; MONOCYTES, MANUAL DIFF 6; NEUTROPHILS, MANUAL DIFF 78
[2023-02-02 07:34] LABS: EOSINOPHILS, MANUAL DIFF 0
--- NOTE | 2023-02-02 07:49 | NUR ---
PT AMBULATING IN ROOM WITH SPORTS TRAINER, NO REQUESTS AT THIS TIME.
--- NOTE | 2023-02-02 09:07 | NUR ---
SECOND DOSE OF GASTROGAFIN RECEIVED. PT TOLERATING WELL. NO REQUESTS AT THIS TIME.
--- NOTE | 2023-02-02 09:43 | NUR ---
Patient up to BR, large loose BM noted. Independent back to bed, no further needs
--- NOTE | 2023-02-02 10:09 | NUR ---
PT RETURNS TO ROOM 112 FROM IMAGING PROCEDURE.
--- NOTE | 2023-02-02 11:00 | NUR ---
Spoke with Bala. He cont.to deny needs. States he is on full liq diet and recently returned from imaging.
--- NOTE | 2023-02-02 12:48 | NUR ---
PT RESTING IN BED, COMPLETED LUNCH OF FULL LIQUID DIET, TOLERATING THIS WELL. LR INFUSING INTO RFA IV. NO REQUESTS AT THIS TIME.
--- NOTE | 2023-02-02 13:23 | EKG ---
[facility] [address] [facility] [place] [address] Signed Sinus rhythm with occasional premature ventricular complexes Right bundle branch block Abnormal ECG When compared with ECG of 04-DEC-2022 14:34, Right bundle branch block is now present Confirmed by Nai Meade MD () on 02/02/2023 1:23:45 PM Electronically Signed By: NAI MEADE MD 02/02/23 1323 PATIENT NAME: SKYLER LIMON Electrocardiogram DATE OF : 33 PHYSICIAN: NAI MEADE MD REPORT #: [id number] REPORT IS CONFIDENTIAL AND NOT TO BE RELEASED WITHOUT AUTHORIZATION
--- NOTE | 2023-02-02 13:33 | NUR ---
PT WAS NOT IN ROOM. MAY HAVE BEEN IN BATHROOM. NO VISIT. PRAYED SILENT PRAYER FOR HEALING.
[2023-02-02] MEDS ORDERED: AMOX TR-K CLV1 EACH PO (15:10)
[2023-02-02] MEDS ORDERED: METRONIDAZOLE250 MG PO (15:10)
--- NOTE | 2023-02-02 16:31 | NUR ---
IV MAG RIDER INFUSING PER ORDER. PT STATES UNDERSTANDING OF POC, AGREEABLE.
--- NOTE | 2023-02-02 17:43 | NUR ---
PT SITTING UP ON SIDE OF BED, IN ROOM. DISCUSSED DISCHARGE INSTRUCTIONS, PT AND VERBALIZE UNDERSTANDING. MAGNESIUM INFUSING. NO REQUESTS AT THIS TIME.
--- NOTE | 2023-02-02 18:25 | NUR ---
INFUSION COMPLETE. IV REMOVED BY GRIFFIN MCLEAN. VSS. PT DRESSES SELF FOR D/C. PT LEAVES UNIT VIA WHEEL CHAIR ESCORTED BY GRIFFIN MCLEAN.
--- NOTE | 2023-02-03 15:49 | DS ---
[facility] [address], [place] [address] Signed ADMISSION DATE: 01/29/2023 DISCHARGE DATE: 02/02/2023 REASON FOR ADMISSION: Acute jejunal diverticulitis. HISTORY OF PRESENT ILLNESS: This 87-year-old white man is known to me from the past having undergone Hill posterior gastropexy for intractable reflux in the late . He has remained free of reflux since that time. 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 He presented to the emergency room with three days of increasing lower abdominal pain, evaluation included a CT scan showing multiple jejunal diverticula up to 4.6 cm in size, as well as diverticular disease of the colon. It appeared that inflammation was associated with a jejunal diverticulitis. He was admitted for further evaluation and care. He additionally was noted to have a relatively large duodenal diverticulum without associated inflammation. PERTINENT PHYSICAL EXAMINATION: GENERAL: Showed a thin older man who is alert and oriented, but hard of hearing. ABDOMEN: Nondistended without sign of peritonitis. No focal mass. There is no ascites. EXTREMITIES: Showed no clubbing, cyanosis, or edema. LABORATORY DATA: White count was 6.8, hematocrit 33.2, platelets 210,000. Chem profile showed an elevated chloride of 110. Creatinine is 1.31, glucose 132. HOSPITAL COURSE: The patient was admitted, given broad-spectrum antibiotics. Minimal liquids were given, which caused increasing abdominal pain. He was largely maintained in an n.p.o. status. Serial examinations showed him to be improving. He was then given a clear liquid diet which he seemed to tolerate well and ultimately a full liquid diet which he additionally tolerated. Transition to a low-fiber diet with oral antibiotic, amoxicillin and Flagyl were undertaken. The low-fiber diet was met with significant abdominal pain and bloating but no nausea or vomiting. He was replaced to a full liquid diet which he did seem to tolerate well. He then had additional pain after once again starting a low-fiber diet, prompting a CT scan with GI Electronically Signed By: DEXTER COUGHLIN MD 02/03/23 1549 PATIENT NAME: SKYLER LIMON DISCHARGE SUMMARY DATE OF : 33 REPORT #: [id number] PHYSICIAN: DEXTER COUGHLIN MD PCP: ROXANA TEJADA REPORT IS CONFIDENTIAL AND NOT TO BE RELEASED WITHOUT AUTHORIZATION [facility] [address], [place] [address] Signed and IV contrast of both the abdomen and pelvis. Diverticula of the jejunum were well demonstrated. There was no evidence of free perforation, free air and the inflammatory changes seem to be improved. There were no other findings of concern at that time. The patient is doing well on a full liquid diet this afternoon and discharge has been offered to him. We will anticipate additional week of antibiotics including amoxicillin and Flagyl. He will resume his usual medications in particular for his hypertension which has been notable during his hospitalization but generally well controlled. He was instructed to maintain a full liquid diet and do so for at least a week. If after a week he is doing well, initiation of a low-fiber diet would be appropriate. Instructions were given for both. If they have problems or things are worsening in the meantime he will let me know. DISCHARGE MEDICATIONS: 1. Will include amoxicillin clavulanate (Augmentin) 500/125 one p.o. b.i.d. #14. 2. Flagyl 250 mg p.o. t.i.d. #21, no refills. He will continue his usual medicines including aspirin 81 mg a day, losartan 50 mg b.i.d., carvedilol 6.25 mg b.i.d., nitroglycerin, Nitrostat 0.4 mg sublingual p.r.n. chest pain. 3. Simvastatin 20 mg p.o. daily. 4. Synthroid 88 mcg p.o. daily. As regards to his dietary supplement he will additionally take Ensure, which he has a large supply related to his previous ailment of oropharyngeal cancer; he has at least three cases at home to use. He is recommended to have 1-3 cans daily. DISCHARGE DIAGNOSES: 1. Acute jejunal diverticulitis. 2. Diverticulosis without inflammation. 3. Distant history of oropharyngeal cancer, status post radiation therapy, chemotherapy and in remission. 4. Intractable gastroesophageal reflux, status post Hill posterior gastropexy with resolution. 5. Hypertension. 6. Hypothyroidism. Dexter Coughlin MD Electronically Signed By: DEXTER COUGHLIN MD 02/03/23 1549 PATIENT NAME: SKYLER LIMON DISCHARGE SUMMARY DATE OF : 33 REPORT #: [id number] PHYSICIAN: DEXTER COUGHLIN MD PCP: ROXANA TEJADA REPORT IS CONFIDENTIAL AND NOT TO BE RELEASED WITHOUT AUTHORIZATION [address] [address] Signed /[facility] /[id number] cc: YESENIA Stern Copies: ROXANA TEJADA ~ Electronically Signed By: DEXTER COUGHLIN MD 02/03/23 1549 PATIENT NAME: SKYLER LIMON DISCHARGE SUMMARY DATE OF : 33 REPORT #: [id number] PHYSICIAN: DEXTER COUGHLIN MD PCP: ROXANA TEJADA REPORT IS CONFIDENTIAL AND NOT TO BE RELEASED WITHOUT AUTHORIZATION
== END 2023-02-02 18:28 | disposition home or self-care (01) | DRG 392 ==
LOC: ED 10:57 → MS 13:51
PROVIDERS: Emergency Medicine; ADMIT Surgery; ATTEND Surgery
DX: K57.12 Diverticulitis of small intestine without perforation or abscess without bleeding (principal); J90 Pleural effusion, not elsewhere classified; J98.11 Atelectasis; K57.30 Diverticulosis of large intestine without perforation or abscess without bleeding; K21.9 Gastro-esophageal reflux disease without esophagitis; I12.9 Hypertensive chronic kidney disease with stage 1 through stage 4 chronic kidney disease, or unspecified chronic kidney disease; M10.9 Gout, unspecified; R59.0 Localized enlarged lymph nodes; E03.9 Hypothyroidism, unspecified; N18.30 Chronic kidney disease, stage 3 unspecified; N40.0 Benign prostatic hyperplasia without lower urinary tract symptoms; R19.7 Diarrhea, unspecified; E78.00 Pure hypercholesterolemia, unspecified; N32.89 Other specified disorders of bladder; Z79.2 Long term (current) use of antibiotics; Z92.3 Personal history of irradiation; Z85.819 Personal history of malignant neoplasm of unspecified site of lip, oral cavity, and pharynx; Z98.890 Other specified postprocedural states; Z98.52 Vasectomy status; Z88.8 Allergy status to other drugs, medicaments and biological substances; Z79.82 Long term (current) use of aspirin; Z79.899 Other long term (current) drug therapy; I45.10 Unspecified right bundle-branch block; Z79.890 Hormone replacement therapy
CPT/HCPCS: 36415; 74177; 80048; 80053; 81003; 83690; 83735; 85025; 93005; 93010; A9270; J0360; J0690; J0694; J1885; J3475; J7040; J7121; Q9967

== ENCOUNTER 2023-04-22 08:09 | Emergency (ER) | payer OTHER, MEDICARE ==
[~2023-04-22] VITALS: Ht 180.3 cm; Wt 75.4 kg
[~2023-04-22 08:09] MED LIST changes: +AMOX TR-K CLV1 EACH PO; +LEVOTHYROXINE88 MCG PO; +METRONIDAZOLE250 MG PO; +ZOCOR20 MG PO
[2023-04-22 09:31] VITALS: BP 177/73
== END 2023-04-22 09:31 | disposition home or self-care (01) ==
LOC: ED 08:09
DX: I10 Essential (primary) hypertension (principal); E78.00 Pure hypercholesterolemia, unspecified; E03.9 Hypothyroidism, unspecified; Z88.5 Allergy status to narcotic agent; Z88.8 Allergy status to other drugs, medicaments and biological substances; Z79.890 Hormone replacement therapy; Z79.82 Long term (current) use of aspirin; Z79.899 Other long term (current) drug therapy
CPT/HCPCS: 99283

== ENCOUNTER 2023-10-28 14:51 | Emergency (ER) | payer OTHER, MEDICARE ==
[~2023-10-28] VITALS: Ht 180.3 cm; Wt 70.3 kg
[~2023-10-28 14:51] MED LIST changes: +LEVOFLOXACIN500 MG PO
[2023-10-28 16:01] LABS: BASOPHILS 0.5 % (0-2); EOSINOPHILS 3.1 % (0-6); HEMATOCRIT 30.3 % (35.0-50.0); HEMOGLOBIN 9.9 g/dL (12.0-18.0); LYMPHOCYTES 22.5 % (24-44); MCH 31.5 (27-36); MCHC 32.6 g/dl (30-36); MCV 96.8 fl (81-99); MONOCYTES 13.7 % (0-12); NEUTROPHILS 60.2 % (39-80); PLATELET COUNT 179 K/uL (140-440); RBC 3.13 M/ul (4.3-5.7); RDW 15.7 (10.5-15.0)
[2023-10-28 16:15] LABS: ALBUMIN 2.8 g/dL (3.4-5.0); ALBUMIN/GLOBULIN RATIO 1.04 (1.1-2.4); ANION GAP 13.4 (7-21); BILIRUBIN, TOTAL 0.4 ng/dL (0.2-1.0); BUN/CREATININE RATIO 22.6 (6.0-28.6); CALCIUM 8.1 mg/dL (8.5-10.1); CREATININE, SERUM 1.46 mg/dL (0.70-1.30); MAGNESIUM 1.5 mg/dL (1.8-2.4); POTASSIUM 4.4 mmol/L (3.5-5.1); PROTEIN, TOTAL 5.5 g/dL (6.4-8.2)
[2023-10-28] MEDS ORDERED: SODIUM CHLORIDE 0.9% 500 ML IV PRN (16:45)
[2023-10-28] MEDS ORDERED: MAGNESIUM SULFATE 2 GM/50 ML BAG IV ONE (16:45)
[2023-10-28] MEDS ORDERED: DIPHENOXYLATE/ATROPINE 1 EA TAB PO ONE (16:45)
[2023-10-28] MEDS ORDERED: LOMOTIL TABLET1 EACH PO (18:31)
[2023-10-28] MEDS ORDERED: CHOLESTYRAMINE P4 GM PO (18:31)
[2023-10-28] MEDS ORDERED: MAGNESIUM400 MG PO (18:31)
[2023-10-28 18:51] VITALS: BP 166/63
== END 2023-10-28 18:52 | disposition home or self-care (01) ==
LOC: ED 14:51
PROVIDERS: Emergency Medicine
DX: K52.9 Noninfective gastroenteritis and colitis, unspecified (principal); I10 Essential (primary) hypertension; E78.00 Pure hypercholesterolemia, unspecified; E03.9 Hypothyroidism, unspecified; Z88.5 Allergy status to narcotic agent; Z79.899 Other long term (current) drug therapy; Z79.82 Long term (current) use of aspirin
CPT/HCPCS: 36415; 80053; 83735; 85025; 96365; 99284-25; J3475; J7040

== ENCOUNTER 2024-03-10 09:55 | Emergency (ER) | payer OTHER, MEDICARE ==
[~2024-03-10] VITALS: Ht 180.3 cm; Wt 74.4 kg
[~2024-03-10 09:55] MED LIST changes: +CHOLESTYRAMINE P4 GM PO; +LOMOTIL TABLET1 EACH PO; +MAGNESIUM400 MG PO
[2024-03-10 13:30] LABS: BILIRUBIN, URINE NEGATIVE (negative); BLOOD/HGB, URINE NEGATIVE (Negative); KETONE, URINE NEGATIVE (Negative); LEUK ESTERASE, URINE NEGATIVE (negative); NITRITE, URINE NEGATIVE (negative)
[2024-03-10 14:00] LABS: HEMATOCRIT 28.4 % (35.0-50.0); HEMOGLOBIN 9.7 g/dL (12.0-18.0); MCH 33.2 (27-36); MCHC 34.1 g/dl (30-36); MCV 97.5 fl (81-99); PLATELET COUNT 115 K/uL (140-440); RBC 2.91 M/ul (4.3-5.7); RDW 16.9 (10.5-15.0)
[2024-03-10 14:05] LABS: ALBUMIN/GLOBULIN RATIO 1.15 (1.1-2.4); ANION GAP 12.7 (7-21); BILIRUBIN, TOTAL 0.7 ng/dL (0.2-1.0); BUN/CREATININE RATIO 13.95 (6.0-28.6); CALCIUM 7.9 mg/dL (8.5-10.1); CREATININE, SERUM 1.29 mg/dL (0.70-1.30); POTASSIUM 3.7 mmol/L (3.5-5.1); PROTEIN, TOTAL 5.6 g/dL (6.4-8.2)
[2024-03-10 14:16] LABS: BASOPHILS, MANUAL DIFF 4; EOSINOPHILS, MANUAL DIFF 12; LYMPHOCYTES, MANUAL DIFF 52; MONOCYTES, MANUAL DIFF 24; NEUTROPHILS, MANUAL DIFF 8
[2024-03-10 14:39] VITALS: BP 193/88
== END 2024-03-10 14:38 | disposition home or self-care (01) ==
LOC: ED 09:55
PROVIDERS: Emergency Medicine
DX: I10 Essential (primary) hypertension (principal); E03.9 Hypothyroidism, unspecified; Z88.5 Allergy status to narcotic agent; Z88.8 Allergy status to other drugs, medicaments and biological substances; Z79.899 Other long term (current) drug therapy; Z79.890 Hormone replacement therapy; Z79.82 Long term (current) use of aspirin
CPT/HCPCS: 36415; 80053; 81003; 85025; 99283